=== PATIENT | female | born 1950 | race Two or more races ===

== ENCOUNTER 2020-06-05 12:19 | Outpatient (REF) | payer MEDICARE, SELFPAY | END 2020-06-05 12:20 | disposition home or self-care (01) | LOC: HO.LAB 12:19 | PROVIDERS: PCP Nurse Practitioner Family; Visit Provider Internal Medicine | DX: Z20.828 Contact with and (suspected) exposure to other viral communicable diseases (principal) | CPT/HCPCS: 87635 ==

== ENCOUNTER → 2020-07-23 12:50 | Outpatient (BNVA) | payer MEDICARE, SELFPAY | PROVIDERS: PCP Nurse Practitioner Family; Referring Provider Nurse Practitioner Family; Visit Provider Internal Medicine Endocrinology, Diabetes & Metabolism | DX: E11.65 Type 2 diabetes mellitus with hyperglycemia (principal); E11.21 Type 2 diabetes mellitus with diabetic nephropathy; E11.319 Type 2 diabetes mellitus with unspecified diabetic retinopathy without macular edema; E11.42 Type 2 diabetes mellitus with diabetic polyneuropathy; Z79.84 Long term (current) use of oral hypoglycemic drugs; I10 Essential (primary) hypertension; E66.01 Morbid (severe) obesity due to excess calories; Z98.84 Bariatric surgery status | CPT/HCPCS: Q3014 ==

== ENCOUNTER → 2020-10-10 08:26 | Outpatient (BNVA) | payer MEDICARE, SELFPAY | PROVIDERS: Visit Provider Physician Assistant | DX: E66.9 Obesity, unspecified (principal) | CPT/HCPCS: Q3014 ==

== ENCOUNTER 2020-10-13 08:47 | Outpatient (REF) | payer MEDICARE, SELFPAY ==
[2020-10-13 09:25] LABS: MANUAL DIFF FLAG NO
[2020-10-13 09:34] LABS: Basophils Percent Auto 0.2 % (0-2); Eosinophils Absolute Auto 0.1 X10*3/uL (0.0-0.4); Hematocrit 43.4 % (37-47); Hemoglobin 13.8 g/dl (12.0-16.0); Imm Gran Abs Auto 0.01 X10*3/uL (0.00-0.03); Imm Gran Pct Auto 0.2 % (0.0-0.4); Lymphocytes Absolute Auto 1.7 X10*3/uL (1.2-4.9); Lymphocytes Percent Auto 32.9 % (20-40); Mean Corpuscular HGB Conc 31.8 g/dl (31.0-35.0); Mean Corpuscular Hemoglobin 26.6 pg (27.0-33.0); Mean Corpuscular Volume 83.8 fL (80-98); Mean Platelet Volume 11.9 fL (9.4-12.3); Monocytes Absolute Auto 0.7 X10*3/uL (0.1-1.2); Monocytes Percent Auto 14.1 % (2-11); Neutrophils Absolute Auto 2.7 X10*3/uL (2.0-8.3); Neutrophils Percent Auto 51.6 % (45-73); Platelet Count 232 X10*3/uL (160-400); Red Blood Count 5.18 X10*6/uL (4.20-5.50); Red Cell Distribution Width 13.8 % (11.0-16.0); White Blood Count 5.2 X10*3/uL (4.8-10.8)
[2020-10-13 09:43] LABS: Estimated Average Glucose 177 mg/dL; Hemoglobin A1c % 7.8 %
[2020-10-13 10:01] LABS: Alanine Aminotransferase 26 U/L (0-31); Albumin Level 4.1 g/dL (3.5-5.0); Alkaline Phosphatase 81 U/L (39-117); Anion Gap 12 (12-20); Aspartate Amino Transferase 23 U/L (5-31); Bilirubin Total 0.6 mg/dL (0.0-1.0); Blood Urea Nitrogen 14 mg/dL (9-16); C Reactive Protein 0.93 mg/dL (< or = 0.50); Calcium 9.6 mg/dL (8.4-10.2); Carbon Dioxide 30 mmol/L (22-29); Chloride 102 mmol/L (96-108); Cholesterol 247 mg/dL; Estimated Glomerular Filt Rate > 60; Glucose Random 156 mg/dL (60-115); HDL Cholesterol 49 mg/dL; LDL Cholesterol Calculated 148 mg/dl; Potassium 4.7 mmol/L (3.3-5.1); Sodium 139 mmol/L (135-145); Total Protein 7.4 g/dL (6.5-8.0); Triglycerides 251 mg/dL
[2020-10-13 10:22] LABS: Ferritin 6 ng/mL (10-250); TSH reflex Free T4 2.63 uIU/mL (0.32-4.0); Vitamin D 25-OH Total 20.4 ng/mL (>30)
[2020-10-15 08:32] LABS: Folate 11.6 ng/mL (> or = 4.0); Vitamin B12 487 pg/mL (200-900)
[2020-10-15 11:36] LABS: Insulin Level Total 12.8 uIU/mL
[2020-10-15 22:17] LABS: Calcium (PTHI) 9.8 mg/dL (8.6-10.4); PTHI 54 pg/mL (14-64)
[2020-10-16 12:46] LABS: Zinc 72 mcg/dL (60-130)
[2020-10-18 22:47] LABS: Vitamin A 30 mcg/dL (38-98)
== END 2020-10-13 08:48 | disposition home or self-care (01) ==
LOC: HO.LAB 08:47
PROVIDERS: Absent Provider Physician Assistant; PCP Nurse Practitioner Family; Visit Provider Internal Medicine Endocrinology, Diabetes & Metabolism
DX: E66.9 Obesity, unspecified (principal); Z90.3 Acquired absence of stomach [part of]
CPT/HCPCS: 36415; 80053; 80061; 82306; 82607; 82728; 82746; 83036; 83525; 83970; 84425; 84443; 84590; 84630; 85025; 86140

== ENCOUNTER 2020-10-16 14:08 | Outpatient (REF) | payer MEDICARE, SELFPAY ==
--- NOTE | ~2020-10-16 | XR_ITS ---
EXAMINATION: XR FOOT, LEFT CLINICAL INFORMATION: Hypertrophic osteoarthropathy, multiple sites COMPARISON: 02/14/2017 TECHNIQUE: AP, lateral, and oblique views of the left foot. FINDINGS: No fracture. No dislocation. There is enthesopathy of the distal Achilles tendon attachment. Small plantar calcaneal osteophyte is present. There is irregularity and osteophytosis of the tibiotalar joint. There is anterior and posterior talar spurring. Mild degenerative arthrosis of the first metatarsophalangeal joint. No acute or suspicious osseous abnormality. XR/XR foot LT 2V IMPRESSION: Degenerative changes as described above. No acute osseous abnormality.
--- NOTE | ~2020-10-16 | XR_ITS ---
EXAMINATION: XR FOOT, RIGHT CLINICAL INFORMATION: Hypertrophic osteoarthropathy, multiple sites COMPARISON: Ankle x-rays 05/24/2020 TECHNIQUE: AP, lateral, and oblique views of the right foot. FINDINGS: There is enthesopathy of the distal Achilles tendon attachment and a large plantar calcaneal osteophyte. No fracture or dislocation seen. Normal mineralization and alignment. XR/XR foot RT 2V IMPRESSION: Degenerative changes. No acute osseous abnormality.
== END 2020-10-16 14:09 | disposition home or self-care (01) ==
LOC: HO.XRAY 14:08
PROVIDERS: PCP Nurse Practitioner; Visit Provider Student in an Organized Health Care Education/Training Program
DX: M89.49 Other hypertrophic osteoarthropathy, multiple sites (principal)
CPT/HCPCS: 73620; 99212

== ENCOUNTER 2020-10-22 09:39 | Outpatient (REF) | payer MEDICARE, SELFPAY ==
[2020-10-22 10:24] LABS: Hematocrit 39.3 % (37-47); Hemoglobin 12.7 g/dl (12.0-16.0); Mean Corpuscular HGB Conc 32.3 g/dl (31.0-35.0); Mean Corpuscular Hemoglobin 27.1 pg (27.0-33.0); Mean Platelet Volume 11.4 fL (9.4-12.3); Platelet Count 227 X10*3/uL (160-400); Red Blood Count 4.68 X10*6/uL (4.20-5.50); White Blood Count 6.4 X10*3/uL (4.8-10.8)
[2020-10-22 10:32] LABS: Estimated Average Glucose 177 mg/dL; Hemoglobin A1c % 7.8 %
[2020-10-22 10:45] LABS: Alanine Aminotransferase 18 U/L (0-31); Alkaline Phosphatase 72 U/L (39-117); Anion Gap 12 (12-20); Aspartate Amino Transferase 16 U/L (5-31); Bilirubin Total 0.5 mg/dL (0.0-1.0); Blood Urea Nitrogen 20 mg/dL (9-16); Calcium 9.3 mg/dL (8.4-10.2); Carbon Dioxide 28 mmol/L (22-29); Chloride 106 mmol/L (96-108); Cholesterol 236 mg/dL; Estimated Glomerular Filt Rate > 60; Glucose Fasting 117 mg/dL (60-99); HDL Cholesterol 44 mg/dL; LDL Cholesterol Calculated 143 mg/dl; Potassium 4.7 mmol/L (3.3-5.1); Sodium 141 mmol/L (135-145); Total Protein 7.1 g/dL (6.5-8.0); Triglycerides 249 mg/dL
[2020-10-22 11:38] LABS: Creatinine Urine 271.16 mg/dL; Microalbum/Creatinine Ratio Ur 18.8 ug/mg cr
[2020-10-25 15:48] LABS: Vitamin B12 513 pg/mL (200-900)
== END 2020-10-22 09:40 | disposition home or self-care (01) ==
LOC: HO.LAB 09:39
PROVIDERS: Internal Medicine Endocrinology, Diabetes & Metabolism; PCP Nurse Practitioner Family; Visit Provider Physician Assistant
DX: E11.65 Type 2 diabetes mellitus with hyperglycemia (principal); E11.42 Type 2 diabetes mellitus with diabetic polyneuropathy; E78.5 Hyperlipidemia, unspecified; I10 Essential (primary) hypertension; E66.9 Obesity, unspecified; Z87.891 Personal history of nicotine dependence; Z79.84 Long term (current) use of oral hypoglycemic drugs; Z79.899 Other long term (current) drug therapy
CPT/HCPCS: 36415; 80053; 80061; 82043; 82306; 82607; 82947; 83036; 85027; 99212

== ENCOUNTER → 2020-10-31 12:35 | Outpatient (BNVA) | payer MEDICARE, SELFPAY | PROVIDERS: PCP Nurse Practitioner Family; Visit Provider Orthopaedic Surgery | DX: M65.331 Trigger finger, right middle finger (principal); R20.0 Anesthesia of skin; R20.2 Paresthesia of skin | CPT/HCPCS: 99202 ==

== ENCOUNTER → 2020-11-01 08:09 | Outpatient (BNVA) | payer MEDICARE, SELFPAY | PROVIDERS: PCP Nurse Practitioner Family; Visit Provider Dietitian, Registered ==

== ENCOUNTER → 2020-11-06 09:21 | Outpatient (BNVA) | payer MEDICARE, SELFPAY | PROVIDERS: PCP Nurse Practitioner Family; Visit Provider Nurse Practitioner | DX: Z13.89 Encounter for screening for other disorder (principal) | CPT/HCPCS: Q3014 ==

== ENCOUNTER 2020-11-12 14:00 | Outpatient (RCR) | payer MEDICARE, SELFPAY ==
--- NOTE | 2020-10-25 15:30 | MHC.PT.EP ---
[facility] [place] [facility] [place] [facility] [place] [facility] [address] Rip Winkler [address] [phone] F: [phone] F: [phone] F: [phone] F: [phone] Physical Therapy Plan of Care Date of Evaluation: 10/25/20 Date of Surgery: NA Diagnosis: Other hypertrophic osteoarthropathy, multiple sites. Bilateral shoulder pain. Assessment: Halley is a 70-year-old female presenting to physical therapy with a diagnosis of bilateral shoulder pain.She presents with deficits in R shoulder ROM, TTP over middle deltoid, B shoulder strength, and impaired posture. These impairments limit her tolerance to reaching and lifting items overhead, washing her back, and sleeping through the night. She lives with her who occasionally helps her with ADLS. Halley would benefit from skilled therapy to address the aforementioned impairments to improve her quality of life and return to her PLOF. Frequency and Duration: The patient will be seen 2 visits per week for 5 weeks Short Term Goals: 1.) Pt will report <2/10 pain at rest to allow her to sit and watch television within 3 weeks. 2.) Pt will be able to sleep for 8 hours each night without waking up due to pain within 3 weeks. 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 2.) Pt will be independent with [facility] for symptom management and maintenance following discharge within 5 weeks. Treatment Plan: Modalities to reduce pain, spasms and effusion. Manual therapy to restore motion and function. Therapeutic exercise to improve strength and flexibility. Neuromuscular re-education for posture and balance. Therapeutic activities to return to functional activities of daily living. Electronically signed by: Amy Romero, PT, DPT Please sign and return to therapist. Thank you for your referral.
--- NOTE | 2020-11-26 15:24 | MHC.PT.DC ---
[facility] [place] Office [place] Office [place] Office [address] Rip Winkler [address] [phone] F: [phone] F: [phone] F: [phone] F: [phone] Physical Therapy Discharge Report Diagnosis: Other hypertrophic osteoarthropathy, multiple sites. Bilateral shoulder pain. Date of Surgery: NA Date of Evaluation: 10/25/20 Date of Discharge: 11/26/20 Treatments to Date: 4 Cancellations to Date: 1 No Shows to Date: 6 Discharge Status: Visit Non-compliance Discharge Summary: Pt has had 6 no shows and 1 cancel. She was discharged from therapy for non compliance. Electronically signed by: Amy Romero, PT, DPT Please sign and return to therapist. Thank you for your referral.
== END 2020-11-26 15:25 | disposition other institution (70) ==
LOC: HO.PT 14:00
PROVIDERS: PCP Internal Medicine; Visit Provider Student in an Organized Health Care Education/Training Program
DX: M89.49 Other hypertrophic osteoarthropathy, multiple sites (principal)
CPT/HCPCS: 97110; 97112; 97161

== ENCOUNTER 2020-11-23 11:32 | Emergency (ER) | payer MEDICARE, SELFPAY ==
[2020-11-23 11:41] VITALS: BP 177/74; PULSE 66; RESP 16; TEMP 37.1; O2SAT 97; BMI 45.7
--- NOTE | 2020-11-23 12:49 | ED.GENADULT ---
HPI - General Adult General Chief complaint: Back Pain/Injury Stated complaint: low back pain Time Seen by Provider: 11/23/20 12:07 Source: patient Mode of arrival: ambulatory Limitations: language barrier (Patient speaks Azeri only, type photography supervisor was used to obtain information) History of Present Illness HPI narrative: 70-year-old female who presents emergency department for evaluation of left lower back pain x3 months. She states that the pain has been intermittent over the past 3 months and has been [id number] in intensity. She states that she woke up this morning and the pain was severe. The pain was constant, sharp, 8/10. The pain was worse with movement. The pain did not radiate down her left leg. She denied numbness or weakness of her lower extremities. She denied frequency, urgency or dysuria. She states that she was not ill in any other way, she denied fever, chills, cough, chest pain, abdominal pain, nausea, vomiting, diarrhea. The patient took ibuprofen 800 mg at home with no relief. She was having difficulty walking and moving, therefore she came to the emergency department for evaluation. Related Data Home Medications Medication Instructions Recorded Confirmed blood sugar diagnostic #10 ea 07/23/20 10/22/20 fluticasone propionate 220 2 puff INHALATION BID 07/23/20 10/22/20 mcg/actuation HFA aerosol inhaler ibuprofen 800 mg tablet 800 mg PO TID 07/23/20 10/22/20 lancets 33 gauge #100 ea 07/23/20 10/22/20 melatonin 5 mg tablet 500f10 mg PO BEDTIME 07/23/20 10/22/20 multivitamin 1 tab PO DAILY 07/23/20 10/22/20 venlafaxine 37.5 mg 37.5 mg PO BEDTIME 07/23/20 10/22/20 capsule,extended release 24 hr Previous Rx's Medication Instructions Recorded diclofenac sodium 1 % topical gel 2 g TOPICAL BID PRN #100 g 06/19/20 atorvastatin 40 mg tablet 40 mg PO BEDTIME 90 Days #90 tab 10/22/20 empagliflozin 25 mg-metformin ER 1 tab PO DAILY 90 Days #90 ea 10/22/20 1,000 mg tablet,extended release 24hr semaglutide 1 mg/dose (2 mg/1.5 1 mg SUBCUT QWEEK 90 Days #9 ml 10/22/20 mL) subcutaneous pen injector vitamin A 2,400 mcg capsule 16,000 unit PO DAILY #60 cap 10/23/20 cholecalciferol (vitamin D3) 50 50 mcg PO DAILY 30 Days #30 cap 10/25/20 mcg (2,000 unit) capsule docusate sodium 100 mg capsule 100 mg PO DAILY 30 Days #30 cap 11/06/20 pantoprazole 40 mg tablet,delayed 40 mg PO QAM 30 Days #30 tab 11/06/20 release simethicone 180 mg capsule 180 mg PO QID PRN 30 Days #90 cap 11/06/20 methocarbamol 1,000 mg PO .q12 PRN 5 Days #20 tab 11/23/20 morphine 15 mg PO Q4-6H PRN #10 tab 11/23/20 Allergies Allergy/AdvReac Type Severity Reaction Status Date / Time No Known Allergies Allergy Verified 11/06/20 09:21 Review of Systems Review of Systems: Yes all other systems are reviewed and are negative PMF Past Medical History [facility] Narrative: She denies tobacco, alcohol or drug use. Medical History Diabetes type 2, uncontrolled Diabetic polyneuropathy associated with type 2 diabetes mellitus Dyslipidemia Hypertension Obesity Vitamin D deficiency Surgical History History of esophagogastroduodenoscopy (EGD) History of eyelid surgery History of sleeve gastrectomy Hx of colonoscopy Hx of tubal ligation Family History Family History Father Type II diabetes mellitus Obesity Mother HTN (hypertension) Brother Cancer Social History Social History Alcohol intake: never Smoking Status: Former smoker Advance Directives: No Advance Directives Information Provided: No Physical Exam Vital Signs: Vital Signs: Last Vital Signs Temp 98.7 F 11/23/20 11:41 Pulse 66 11/23/20 11:41 Resp 16 11/23/20 11:41 BP 177/74 H 11/23/20 11:41 Pulse Ox 97 11/23/20 11:41 Body Mass Index 45.7 Const: General: cooperative Nutritional Appearance: obese Orientation/consciousness: oriented to person and oriented to place Limitations: no limitations HENMT: Head: Yes normal to inspection, Yes normocephalic and Yes atraumatic Ears: external ears normal General nose exam: Normal external nose present Face and sinus: Yes normal facial exam Mouth: Normal oral and palatal mucosa present Throat: Yes posterior oropharynx normal Eyes: Periorbital: periorbital findings normal Eyelids: Yes eyelids normal Conjunctivae: conjunctivae normal Sclerae: sclerae normal Corneas: corneas normal Pupils: Equal, round and reactive pupils present Direct Ophthalmoscopy: normal light reflex Neck: Neck: Yes full ROM, Yes no lymphadenopathy, Yes no meningeal signs, Yes trachea midline and Yes supple Chest: Chest palpation & inspection: normal inspection of the chest and normal palpation of entire chest wall Resp: Effort & Inspection: normal respiratory effort and able to speak in complete sentences Auscultation: clear to auscultation bilaterally Cardio: Rate: regular rate Rhythm: regular rhythm Heart sounds: S1 normal heart sound present, S2 normal heart sound present and no murmurs GI: Inspection: Yes normal to inspection Palpation (GI): Soft to palpation, nontender, no guarding, not rigid and No hepatosplenomegaly present : General: Yes no CVA tenderness Back/Spine/Pelvis: Other: The patient has tenderness with palpation of her left paraspinal muscles in the lumbar sacral area, there is spasm of these muscles. The patient has no rashes or lesions noted over the area of tenderness. She has no spinal tenderness. She has negative straight leg raises bilaterally. Back: no CVA tenderness Cervical Spine: normal cervical lordosis Skin: Lesions: no lesions Rashes: no rashes Wounds: no wounds Neuro: General: oriented to person, oriented to place and no meningeal signs Cranial nerves: Yes CN's II-XII intact bilaterally and Yes Equal, round and reactive pupils present Cognition (Neuro): normal cognition Motor exam (neuro): 5/5 motor strength present throughout Extrem: General: Yes normal to inspection and Yes full ROM Psych: Appearance: well kempt Mental Status: mental status grossly normal Speech and movement: Normal speech and movement present Affect: normal affect Attitude: cooperative Thought process: Normal thought process present Thought content: Normal thought content present Course Course Course Narrative: 70-year-old female with a history of intermittent, left lower back pain x3 months with pain which was worse this morning when she woke up. The pain was 8/10 and was worse with movement. On physical examination the patient was afebrile, she was hypertensive with a blood pressure of 177/74, she did have lumbar sacral paraspinal muscle tenderness and spasm with no vertebral tenderness. She had negative straight leg raise is in her neurologic exam was nonfocal. Her presentation is consistent with lumbar muscle strain. The patient was advised to continue taking her ibuprofen 800 mg 3 times a day and Tylenol 1000 mg 3 times a day. She was given a prescription for morphine 15 mg every 4-6 hours as needed for pain not relieved by ibuprofen and Tylenol. She was also given a prescription for Robaxin 1000 mg twice a day for pain and spasm. She was given printed and verbal instructions and discharged home. Discharge Plan Discharge Clinical Impression: Acute lumbar myofascial strain Qualifiers: Encounter type: initial encounter Qualified Code(s): S39.012A - Strain of muscle, fascia and tendon of lower back, initial encounter Patient Disposition: Home, Self-Care Instructions: Low Back Strain (ED) Additional Instructions: Back Pain Discharge Instructions: Take Motri(ibuprofen) 800 mg pills, 1 pills every 6 hours as needed for pain. Take Tyleno(acetaminophen) 500 mg pills, 2 pills every 6 hours as needed for pain. Take Robaxin 1000 mg every 12 hours as needed for pain or muscle spasm. This is a prescription medication. This medication will make you sleepy, therefore do not drive or work while taking this medication. Apply ice for 15 minutes to the area that hurts on your back, then apply a heating a pad on low for 15 minutes. Do this 4-6 times a day to help reduce the pain in your back. Continue with normal activities as tolerated since staying in bed and not moving around will make your pain worse. You can also try over the counter lidocaine patches as directed on the box to help with the pain. Please return to the Emergency Department or see your doctor immediately if your symptoms get worse or if you develop any new symptoms that are concerning you. Follow up with your doctor in 2 day. Please read the other printed discharge instructions on back pain. Prescriptions: New morphine 15 mg tablet 15 mg PO Q4-6H PRN (Reason: pain) Qty: 10 RF: 0 methocarbamol 500 mg tablet 1,000 mg PO .q12 PRN (Reason: Pain or spasm) 5 Days Qty: 20 RF: 0 No Action diclofenac sodium 1 % gel 2 g topical BID PRN (Reason: pain) Qty: 100 RF: 2 vitamin A 8,000 unit capsule 16,000 unit PO DAILY Qty: 60 RF: 2 cholecalciferol (vitamin D3) 50 mcg (2,000 unit) capsule 50 mcg PO DAILY 30 Days Qty: 30 RF: 6 Flovent HFA 220 mcg/actuation HFA aerosol inhaler 2 puff inhalation BID RF: 0 (DME) lancets 33 gauge misc See Rx Instructions ea Not Applicable BID Qty: 100 RF: 0 melatonin 5 mg tablet 500f10 mg PO BEDTIME RF: 0 (DME) OneTouch Ultra Blue Test Strip Strip See Rx Instructions ea Not Applicable BID Qty: 10 RF: 0 ibuprofen 800 mg tablet 800 mg PO TID RF: 0 venlafaxine 37.5 mg capsule,extended release 24hr 37.5 mg PO BEDTIME RF: 0 multivitamin Tablet 1 tab PO DAILY RF: 0 pantoprazole 40 mg tablet,delayed release (DR/EC) 40 mg PO QAM 30 Days Qty: 30 RF: 6 docusate sodium 100 mg capsule 100 mg PO DAILY 30 Days Qty: 30 RF: 6 simethicone 180 mg capsule 180 mg PO QID PRN (Reason: abdominal distention) 30 Days Qty: 90 RF: 6 Ozempic 1 mg/dose (2 mg/1.5 mL) pen injector 1 mg subcut QWEEK 90 Days Qty: 9 RF: 1 Synjardy XR 25-1,000 mg tablet, IR - ER, biphasic 24hr 1 tab PO DAILY 90 Days Qty: 90 RF: 3 atorvastatin 40 mg tablet 40 mg PO BEDTIME 90 Days Qty: 90 RF: 2 Interventions: ED Discharge Assessment Last Done: 11/23/20 13:45 Discharge Date/Time: 11/23/20 13:49
== END 2020-11-23 13:49 | disposition home or self-care (01) ==
PROVIDERS: Emergency Provider Emergency Medicine Emergency Medical Services; PCP Nurse Practitioner Family
DX: S39.012A Strain of muscle, fascia and tendon of lower back, initial encounter (principal); X58.XXXA Exposure to other specified factors, initial encounter; E11.9 Type 2 diabetes mellitus without complications; I10 Essential (primary) hypertension; E78.5 Hyperlipidemia, unspecified; Y93.84 Activity, sleeping; Y92.013 Bedroom of single-family (private) house as the place of occurrence of the external cause; Y99.9 Unspecified external cause status
CPT/HCPCS: 99283

== ENCOUNTER 2020-11-24 04:41 | Emergency (ER) | payer MEDICARE, SELFPAY ==
[2020-11-24 04:50] VITALS: BP 126/71; BP 154/69; PULSE 82; RESP 16; TEMP 37.2; O2SAT 96; O2SAT 98; BMI 39.3
[2020-11-24] MEDS: ondansetron HCL 4 MG/2 ML VIAL IVPUSH (05:07)
--- NOTE | 2020-11-24 05:10 | PC.NURSE ---
Pt found sitting upright in bed, Citizen [place] speaking only with at bedside. Per pt, she was prescribed Robaxin and Morphine yesterday for pain to her left side. Pt took the Robaxin and Morphine @ 1900 and has been vomiting several times since, pt reports at least 10x. Pt also reports feeling very itchy. Pt denies having any prescriptions for anti nausea medication. IV established, labs obtained, pt medicated with Zofran per OCT. POC 155 mg/dl. VSS at this time. MD at bedside for primary eval.
[2020-11-24 05:11] LABS: MANUAL DIFF FLAG NO
[2020-11-24 05:11] LABS: Glucose, Whole Blood 155 mg/dL (60-115)
[2020-11-24 05:12] LABS: Basophils Percent Auto 0.3 % (0-2); Eosinophils Absolute Auto 0.1 X10*3/uL (0.0-0.4); Eosinophils Percent Auto 0.5 % (0-4); Hematocrit 40.2 % (37-47); Hemoglobin 12.8 g/dl (12.0-16.0); Imm Gran Abs Auto 0.04 X10*3/uL (0.00-0.03); Imm Gran Pct Auto 0.4 % (0.0-0.4); Lymphocytes Absolute Auto 1.9 X10*3/uL (1.2-4.9); Lymphocytes Percent Auto 17.1 % (20-40); Mean Corpuscular HGB Conc 31.8 g/dl (31.0-35.0); Mean Corpuscular Hemoglobin 26.9 pg (27.0-33.0); Mean Corpuscular Volume 84.6 fL (80-98); Mean Platelet Volume 11.5 fL (9.4-12.3); Monocytes Absolute Auto 0.4 X10*3/uL (0.1-1.2); Monocytes Percent Auto 3.6 % (2-11); Neutrophils Absolute Auto 8.7 X10*3/uL (2.0-8.3); Neutrophils Percent Auto 78.1 % (45-73); Platelet Count 242 X10*3/uL (160-400); Red Blood Count 4.75 X10*6/uL (4.20-5.50); Red Cell Distribution Width 13.3 % (11.0-16.0); White Blood Count 11.1 X10*3/uL (4.8-10.8)
--- NOTE | 2020-11-24 05:26 | PC.NURSE ---
Pt ambulating to the bathroom, UA obtained and sent.
--- NOTE | 2020-11-24 05:27 | ED_ITS ---
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 Patient states that she took both the muscle relaxant and morphine this evening at approximately 7:00 p.m. with good resolution of her pain symptoms but then woke up with nausea and vomiting which prompted her to return to the emergency room. She denies any fevers, chills, abdominal pain/diarrhea, urinary pain/burning/frequency. And states her sugars have been well controlled. Related Data Home Medications Medication Instructions Recorded Confirmed blood sugar diagnostic #10 ea 07/23/20 10/22/20 fluticasone propionate 220 2 puff INHALATION BID 07/23/20 10/22/20 mcg/actuation HFA aerosol inhaler ibuprofen 800 mg tablet 800 mg PO TID 07/23/20 10/22/20 lancets 33 gauge #100 ea 07/23/20 10/22/20 melatonin 5 mg tablet 500f10 mg PO BEDTIME 07/23/20 10/22/20 multivitamin 1 tab PO DAILY 07/23/20 10/22/20 venlafaxine 37.5 mg 37.5 mg PO BEDTIME 07/23/20 10/22/20 capsule,extended release 24 hr Previous Rx's Medication Instructions Recorded diclofenac sodium 1 % topical gel 2 g TOPICAL BID PRN #100 g 06/19/20 atorvastatin 40 mg tablet 40 mg PO BEDTIME 90 Days #90 tab 10/22/20 empagliflozin 25 mg-metformin ER 1 tab PO DAILY 90 Days #90 ea 10/22/20 1,000 mg tablet,extended release 24hr semaglutide 1 mg/dose (2 mg/1.5 1 mg SUBCUT QWEEK 90 Days #9 ml 10/22/20 mL) subcutaneous pen injector vitamin A 2,400 mcg capsule 16,000 unit PO DAILY #60 cap 10/23/20 cholecalciferol (vitamin D3) 50 50 mcg PO DAILY 30 Days #30 cap 10/25/20 mcg (2,000 unit) capsule docusate sodium 100 mg capsule 100 mg PO DAILY 30 Days #30 cap 11/06/20 pantoprazole 40 mg tablet,delayed 40 mg PO QAM 30 Days #30 tab 11/06/20 release simethicone 180 mg capsule 180 mg PO QID PRN 30 Days #90 cap 11/06/20 methocarbamol 1,000 mg PO .q12 PRN 5 Days #20 tab 11/23/20 morphine 15 mg PO Q4-6H PRN #10 tab 11/23/20 Allergies Allergy/AdvReac Type Severity Reaction Status Date / Time No Known Allergies Allergy Verified 11/06/20 09:21 Review of Systems Review of Systems: Pertinent positives and negatives as stated in HPI 10 point review of systems is otherwise negative. [facility] Past Medical History Source: nursing notes reviewed Medical History Diabetes type 2, uncontrolled Diabetic polyneuropathy associated with type 2 diabetes mellitus Dyslipidemia Hypertension Obesity Vitamin D deficiency Surgical History History of esophagogastroduodenoscopy (EGD) History of eyelid surgery History of sleeve gastrectomy Hx of colonoscopy Hx of tubal ligation Family History Family History Father Type II diabetes mellitus Obesity Mother HTN (hypertension) Brother Cancer Social History Social History Alcohol intake: never Smoking Status: Former smoker Advance Directives: No Advance Directives Information Provided: No Physical Exam Vital Signs: Vital Signs: Last Vital Signs Temp 98.9 F 11/24/20 04:50 Pulse 82 11/24/20 04:50 Resp 16 11/24/20 04:50 BP 154/69 H 11/24/20 04:50 Pulse Ox 96 11/24/20 04:50 Body Mass Index 39.3 VITAL SIGNS: Reviewed. GENERAL: Well developed, well nourished, in no acute distress. HEAD: Normocephalic/atraumatic NOSE: Nares patent bilateral OROPHARYNX: no oral lesions noted, posterior pharynx clear NECK: Supple, no adenopathy LUNGS: Normal breath sounds. No adventitious sounds or accessory muscle use. SpO2<96> CARDIOVASCULAR: Regular rate and rhythm without noted murmurs ABDOMEN: Obesity, Soft, non-tender, non-distended with bowel sounds. NEUROLOGIC: Alert and oriented x 4. Course Course Course Narrative: This is a 70-year-old female with history and clinical presentation consistent with medication side effect, however will do basic labs and urinalysis and if no acute findings patient will be discharged with further instructions regarding medication associated nausea/vomiting. On review of all investigations there are no acute findings to suggest infection or electrolyte abnormalities as the cause of patient's acute onset of symptoms. This is most consistent with medication related nausea and vomiting. All results and findings were discussed with her at bedside via the master police detective. Patient is tolerating oral intake and will be discharged home in stable condition. MDM - Nausea/Vomiting/Diarrhea Lab Data Result diagrams: 11/24/20 04:56 11/24/20 04:56 Labs: Lab Results 11/24/20 11/24/20 11/24/20 Range/Units 04:56 04:56 05:06 WBC 11.1 H (4.8-10.8) X10*3/uL RBC 4.75 (4.20-5.50) X10*6/uL Hgb 12.8 (12.0-16.0) g/dl Hct 40.2 (37-47) % MCV 84.6 (80-98) fL MCH 26.9 L (27.0-33.0) pg MCHC 31.8 (31.0-35.0) g/dl RDW 13.3 (11.0-16.0) % Plt Count 242 (160-400) X10*3/uL MPV 11.5 (9.4-12.3) fL Immature Gran % (Auto) 0.4 (0.0-0.4) % Neut % (Auto) 78.1 H (45-73) % Lymph % (Auto) 17.1 L (20-40) % [place] % (Auto) 3.6 (2-11) % Eos % (Auto) 0.5 (0-4) % Baso % (Auto) 0.3 (0-2) % Lymph # (Auto) 1.9 (1.2-4.9) X10*3/uL [place] # (Auto) 0.4 (0.1-1.2) X10*3/uL Eos # (Auto) 0.1 (0.0-0.4) X10*3/uL Baso # (Auto) 0.0 (0.0-0.2) X10*3/uL Abs Immat Gran (auto) 0.04 H (0.00-0.03) X10*3/uL Absolute Neuts (auto) 8.7 H (2.0-8.3) X10*3/uL Absolute Nucleated RBC 0.000 (0.0-0.012) X10*3/uL Nucleated RBC % (auto) 0.0 (0.0-0.2) /100WBC Sodium 138 (135-145) mmol/L Potassium 4.4 (3.3-5.1) mmol/L Chloride 103 (96-108) mmol/L Carbon Dioxide 22 (22-29) mmol/L Anion Gap 17 (12-20) BUN 18 H (9-16) mg/dL Creatinine 0.68 (0.5-1.4) mg/dL Estim Creat Clear Calc 86.3 Estimated GFR > 60 POC Glucose 155 H (60-115) mg/dL Random Glucose 159 H (60-115) mg/dL Calcium 8.9 (8.4-10.2) mg/dL Total Bilirubin 0.6 (0.0-1.0) mg/dL AST 17 (5-31) U/L ALT 19 (0-31) U/L Alkaline Phosphatase 70 (39-117) U/L Total Protein 7.4 (6.5-8.0) g/dL Albumin 4.2 (3.5-5.0) g/dL Urine Color Urine Appearance Urine pH (5.0-8.0) Ur Specific [place] (1.005-1.025) Urine Protein (NEG-TRACE) MG/DL Urine Glucose (UA) (NEG) MG/DL Urine Ketones (NEG) MG/DL Urine Blood (NEG) Urine Nitrite (NEG) Ur Leukocyte Esterase (NEG) 11/24/20 Range/Units 05:22 WBC (4.8-10.8) X10*3/uL RBC (4.20-5.50) X10*6/uL Hgb (12.0-16.0) g/dl Hct (37-47) % MCV (80-98) fL MCH (27.0-33.0) pg MCHC (31.0-35.0) g/dl RDW (11.0-16.0) % Plt Count (160-400) X10*3/uL MPV (9.4-12.3) fL Immature Gran % (Auto) (0.0-0.4) % Neut % (Auto) (45-73) % Lymph % (Auto) (20-40) % [place] % (Auto) (2-11) % Eos % (Auto) (0-4) % Baso % (Auto) (0-2) % Lymph # (Auto) (1.2-4.9) X10*3/uL [place] # (Auto) (0.1-1.2) X10*3/uL Eos # (Auto) (0.0-0.4) X10*3/uL Baso # (Auto) (0.0-0.2) X10*3/uL Abs Immat Gran (auto) (0.00-0.03) X10*3/uL Absolute Neuts (auto) (2.0-8.3) X10*3/uL Absolute Nucleated RBC (0.0-0.012) X10*3/uL Nucleated RBC % (auto) (0.0-0.2) /100WBC Sodium (135-145) mmol/L Potassium (3.3-5.1) mmol/L Chloride (96-108) mmol/L Carbon Dioxide (22-29) mmol/L Anion Gap (12-20) BUN (9-16) mg/dL Creatinine (0.5-1.4) mg/dL Estim Creat Clear Calc Estimated GFR POC Glucose (60-115) mg/dL Random Glucose (60-115) mg/dL Calcium (8.4-10.2) mg/dL Total Bilirubin (0.0-1.0) mg/dL AST (5-31) U/L ALT (0-31) U/L Alkaline Phosphatase (39-117) U/L Total Protein (6.5-8.0) g/dL Albumin (3.5-5.0) g/dL Urine Color YELLOW Urine Appearance CLEAR Urine pH 5.0 (5.0-8.0) Ur Specific [place] 1.020 (1.005-1.025) Urine Protein NEG (NEG-TRACE) MG/DL Urine Glucose (UA) >=1000 H (NEG) MG/DL Urine Ketones 15 (NEG) MG/DL Urine Blood NEG (NEG) Urine Nitrite NEG (NEG) Ur Leukocyte Esterase NEG (NEG) Discharge Plan Discharge Clinical Impression: Medication side effect Nausea & vomiting Qualifiers: Vomiting type: unspecified Vomiting Intractability: non-intractable Qualified Code(s): R11.2 - Nausea with vomiting, unspecified Patient Disposition: Home, Self-Care Instructions: Acute Nausea and Vomiting (ED) Additional Instructions: 1. Reanude todos los medicamentos caseros seg?n lo recetado. 2. Recomiende el uso de metocarbamol para el malestar de la cadera y evite la morfina a menos que el metocarbamol no le ayude. 3. Se le proporciona marialuisa receta para medicamentos contra las n?useas en hilda de que necesite usar morfina. Shira medicamento debe tomarse antes de deysi morfina. 4. Santana un seguimiento con arce proveedor de atenci?n primaria para marialuisa reevaluaci?n. No dude en volver al servicio de urgencias si desarrolla un empeoramiento hung de fadumo s?ntomas. Prescriptions: No Action diclofenac sodium 1 % gel 2 g topical BID PRN (Reason: pain) Qty: 100 RF: 2 vitamin A 8,000 unit capsule 16,000 unit PO DAILY Qty: 60 RF: 2 cholecalciferol (vitamin D3) 50 mcg (2,000 unit) capsule 50 mcg PO DAILY 30 Days Qty: 30 RF: 6 morphine 15 mg tablet 15 mg PO Q4-6H PRN (Reason: pain) Qty: 10 RF: 0 methocarbamol 500 mg tablet 1,000 mg PO .q12 PRN (Reason: Pain or spasm) 5 Days Qty: 20 RF: 0 Flovent HFA 220 mcg/actuation HFA aerosol inhaler 2 puff inhalation BID RF: 0 (DME) lancets 33 gauge misc See Rx Instructions ea Not Applicable BID Qty: 100 RF: 0 melatonin 5 mg tablet 500f10 mg PO BEDTIME RF: 0 (DME) OneTouch Ultra Blue Test Strip Strip See Rx Instructions ea Not Applicable BID Qty: 10 RF: 0 ibuprofen 800 mg tablet 800 mg PO TID RF: 0 venlafaxine 37.5 mg capsule,extended release 24hr 37.5 mg PO BEDTIME RF: 0 multivitamin Tablet 1 tab PO DAILY RF: 0 pantoprazole 40 mg tablet,delayed release (DR/EC) 40 mg PO QAM 30 Days Qty: 30 RF: 6 docusate sodium 100 mg capsule 100 mg PO DAILY 30 Days Qty: 30 RF: 6 simethicone 180 mg capsule 180 mg PO QID PRN (Reason: abdominal distention) 30 Days Qty: 90 RF: 6 Ozempic 1 mg/dose (2 mg/1.5 mL) pen injector 1 mg subcut QWEEK 90 Days Qty: 9 RF: 1 Synjardy XR 25-1,000 mg tablet, IR - ER, biphasic 24hr 1 tab PO DAILY 90 Days Qty: 90 RF: 3 atorvastatin 40 mg tablet 40 mg PO BEDTIME 90 Days Qty: 90 RF: 2 Referrals: [facility] [Primary Care Provider] - 2 days Print Language: Burmese
[2020-11-24 05:29] LABS: Glucose Urine UA >=1000 MG/DL (NEG); Leukocyte Esterase Urine NEG (NEG); Nitrite Urine NEG (NEG); Urine Blood NEG (NEG); Urine Ketones 15 MG/DL (NEG); Urine Protein NEG (NEG-TRACE)
[2020-11-24 05:32] LABS: Alanine Aminotransferase 19 U/L (0-31); Albumin Level 4.2 g/dL (3.5-5.0); Alkaline Phosphatase 70 U/L (39-117); Anion Gap 17 (12-20); Aspartate Amino Transferase 17 U/L (5-31); Bilirubin Total 0.6 mg/dL (0.0-1.0); Blood Urea Nitrogen 18 mg/dL (9-16); Calcium 8.9 mg/dL (8.4-10.2); Carbon Dioxide 22 mmol/L (22-29); Chloride 103 mmol/L (96-108); Creatinine Clr Calc Pharmacy 86.3; Estimated Glomerular Filt Rate > 60; Glucose Random 159 mg/dL (60-115); Potassium 4.4 mmol/L (3.3-5.1); Sodium 138 mmol/L (135-145); Total Protein 7.4 g/dL (6.5-8.0)
[2020-11-24 05:38] LABS: Appearance Urine CLEAR; Color Urine YELLOW
[2020-11-24 06:06] VITALS: BP 107/50; PULSE 100; RESP 16; O2SAT 97
[2020-11-24 06:17] VITALS: BP 146/68; PULSE 76; RESP 20
[2020-11-24 06:25] LABS: RBC Urine 0 /HPF (0); Squamous Epithelial Cell Urine TRACE /LPF; WBC Urine 0 /HPF (0-4)
== END 2020-11-24 06:28 | disposition home or self-care (01) ==
PROVIDERS: Emergency Provider Student in an Organized Health Care Education/Training Program
DX: R11.2 Nausea with vomiting, unspecified (principal); M25.552 Pain in left hip; E11.9 Type 2 diabetes mellitus without complications; I10 Essential (primary) hypertension; Z87.891 Personal history of nicotine dependence; Z79.899 Other long term (current) drug therapy
CPT/HCPCS: 36415; 80053; 81001; 82947; 85025; 96374; 99284; J2405

== ENCOUNTER 2020-12-03 12:18 | Outpatient (REF) | payer MEDICARE, SELFPAY ==
--- NOTE | ~2020-12-03 | XR_ITS ---
EXAMINATION: XR HIP, LEFT CLINICAL INFORMATION: Pain in left hip COMPARISON: 06/25/2017 TECHNIQUE: Two views of the left hip. FINDINGS: No fracture or dislocation. The hip is well aligned. The joint space is maintained. Small osteophyte of the acetabulum, unchanged. The pubic symphysis is well aligned. The visualized bowel gas pattern is unremarkable. Enthesophyte formation at the iliac crest. XR/XR hip LT min 2V IMPRESSION: Mild degenerative change of the left hip.
== END 2020-12-03 12:19 | disposition home or self-care (01) ==
LOC: HO.XRAY 12:18
PROVIDERS: Absent Provider Internal Medicine; PCP Internal Medicine; Visit Provider Internal Medicine
DX: M25.552 Pain in left hip (principal)
CPT/HCPCS: 73502

== ENCOUNTER 2020-12-12 08:01 | Outpatient (REF) | payer MEDICARE, SELFPAY ==
--- NOTE | 2020-12-12 08:07 | EMG_ITS ---
This is a 70-year-old woman with several month history of pain and numbness in the right hand. She has no medications, had a cortisone injection recently. No diabetes. PHYSICAL EXAMINATION: On examination, she is alert and oriented with normal intellectual functions. Cranial nerves II through XII are normal. Muscle tone and strength are normal. No Tinel or Phalen sign. IMPRESSION: Rule out carpal tunnel syndrome. Nerve conduction EMG study: Mild carpal tunnel syndrome on the right. Normal EMG of the right C5-T1 innervated muscles. MD JAMES Randhawa/JON / [id number]
== END 2020-12-12 08:02 | disposition home or self-care (01) ==
LOC: HO.NEURO 08:01
PROVIDERS: Visit Provider Orthopaedic Surgery
DX: R20.0 Anesthesia of skin (principal); R20.2 Paresthesia of skin
CPT/HCPCS: 95886; 95910

== ENCOUNTER 2020-12-12 17:44 | Outpatient (REF) | payer MEDICARE, SELFPAY | END 2020-12-12 17:45 | disposition home or self-care (01) | LOC: HO.HOSX 17:44 | PROVIDERS: Visit Provider Physician Assistant | DX: Z13.89 Encounter for screening for other disorder (principal) ==

== ENCOUNTER → 2020-12-31 10:18 | Outpatient (BNVA) | payer MEDICARE, SELFPAY | PROVIDERS: PCP Internal Medicine; Visit Provider Physician Assistant | DX: M16.12 Unilateral primary osteoarthritis, left hip (principal) | CPT/HCPCS: 99202 ==

== ENCOUNTER → 2021-01-02 11:30 | Outpatient (BNVA) | payer MEDICARE, SELFPAY | PROVIDERS: PCP Internal Medicine; Visit Provider Orthopaedic Surgery | DX: G56.01 Carpal tunnel syndrome, right upper limb (principal); M65.331 Trigger finger, right middle finger | CPT/HCPCS: 99202 ==

== ENCOUNTER 2021-01-15 06:44 | Observation (INO) | payer MEDICARE, SELFPAY ==
[2021-01-15] VITALS (7 sets, daily range): BP systolic 118–155; BP diastolic 57–76; PULSE 66–78; RESP 18–22; TEMP 36.7–37.2; O2SAT 96–98; BMI 41.9
--- NOTE | 2021-01-15 07:10 | ED.ABDPAIN ---
HPI - Abdominal Pain General Chief Complaint: Abdominal Pain Stated Complaint: upper abd pain Time Seen by Provider: 01/15/21 07:10 Source: patient Mode of arrival: ambulatory Limitations: no limitations History of Present Illness HPI narrative: Patient with bariatric surgery at [place]. Rudolph sweeney last night MD elicited complaint: abdominal pain Pertinent past history: other (Bariatric surgery) Onset (ago): day(s) (3) Pain Consistency: intermittent Location: epigastric Severity: moderate Quality: cramping Radiation: other (neck and left shoulder) Exacerbating factors: nothing Related Data Home Medications Medication Instructions Recorded Confirmed blood sugar diagnostic #10 ea 07/23/20 10/22/20 fluticasone propionate 220 2 puff INHALATION BID 07/23/20 01/15/21 mcg/actuation HFA aerosol inhaler lancets 33 gauge #100 ea 07/23/20 10/22/20 melatonin 5 mg tablet 5 - 10 mg PO BEDTIME 07/23/20 01/15/21 multivitamin 1 tab PO DAILY 07/23/20 01/15/21 venlafaxine 37.5 mg 37.5 mg PO BEDTIME 07/23/20 01/15/21 capsule,extended release 24 hr pantoprazole 40 mg PO DAILY 01/15/21 01/15/21 semaglutide [Ozempic] 0.5 mg SUBCUT QWEEK 01/15/21 01/15/21 vitamin A 2 cap PO DAILY 01/15/21 01/15/21 Previous Rx's Medication Instructions Recorded atorvastatin 40 mg tablet 40 mg PO BEDTIME 90 Days #90 tab 10/22/20 empagliflozin 25 mg-metformin ER 1 tab PO DAILY 90 Days #90 ea 10/22/20 1,000 mg tablet,extended release 24hr cholecalciferol (vitamin D3) 50 50 mcg PO DAILY 30 Days #30 cap 10/25/20 mcg (2,000 unit) capsule flash glucose scanning reader #1 ea 12/28/20 flash glucose sensor #2 ea 12/28/20 meloxicam 15 mg tablet 15 mg PO DAILY 30 Days #30 tab 12/31/20 diclofenac sodium 1 % topical gel 2 g TOPICAL BID PRN #100 g 01/08/21 Allergies Allergy/AdvReac Type Severity Reaction Status Date / Time No Known Allergies Allergy Verified 12/31/20 11:18 Review of Systems Constitutional: Reports no additional constitutional complaints Eyes: Reports no additional eye complaints Denies dizziness Cardiovascular: Reports no additional cardiovascular complaints Respiratory: Reports as per HPI Gastrointestinal: Reports no additional gastrointestinal complaints Genitourinary: Reports no additional female genitourinary complaints Musculoskeletal: Reports no additional musculoskeletal complaints Skin/Breast: Denies rash Reports system reviewed and no additional complaints, except as documented, Denies dizziness and Denies Sensory deficit (Neuro) Psychiatric: Denies anxiety Physical Exam Vital Signs: Vital Signs: Last Vital Signs Temp 99.0 F 01/15/21 07:15 Pulse 75 01/15/21 08:13 Resp 18 01/15/21 07:15 BP 141/76 H 01/15/21 08:13 Pulse Ox 98 01/15/21 07:15 Body Mass Index 41.9 Const: General: healthy appearing Nutritional Appearance: obese Orientation/consciousness: oriented to person and patient oriented x3 Limitations: no limitations HENMT: Head: Yes normal to inspection Ears: external ears normal General nose exam: Normal external nose present Mouth: Normal oral and palatal mucosa present and oropharynx normal Throat: Yes posterior oropharynx normal Eyes: General: appearance normal, both eyes and all related structures Neck: Other: supple Neck: Yes normal visual inspection Chest: Chest palpation & inspection: normal inspection of the chest Resp: Auscultation: clear to auscultation bilaterally Cardio: Jugular venous distension: no JVD Rate: regular rate Rhythm: regular rhythm Heart sounds: S1 normal heart sound present and S2 normal heart sound present GI: Inspection: Yes normal to inspection Palpation (GI): Soft to palpation, nontender and No hepatosplenomegaly present Auscultation: normal bowel sounds : General: Yes no CVA tenderness Back/Spine/Pelvis: Back: no CVA tenderness Skin: General skin exam: no rashes or lesions noted Neuro: General: oriented to person and patient oriented x3 Cranial nerves: Yes CN's II-XII intact bilaterally Motor exam (neuro): 5/5 motor strength present throughout Sensory Exam: No Sensory deficit (Neuro) Extrem: General: Yes normal to inspection Psych: Appearance: grossly normal Course Course Course Narrative: epigastric pain radiating to left shoulder and neck, intermittent. With a benign physical exam, more concerned about cardiac ischemia will work her up for that, and check abdominal labs Reevaluation(s) Reevaluation #1: Patient with a HEART score of 4, will admit for cardiac work up Time: 09:38 Reevaluation #2: Discussed with Dr. Cee and Phillip. Wll admit Time: 12:24 MDM - Abdominal Pain Lab Data Result diagrams: 01/15/21 07:42 01/15/21 07:42 Labs: Lab Results 01/15/21 01/15/21 01/15/21 Range/Units 07:42 07:42 07:42 WBC 7.0 (4.8-10.8) X10*3/uL RBC 4.83 (4.20-5.50) X10*6/uL Hgb 12.8 (12.0-16.0) g/dl Hct 39.9 (37-47) % MCV 82.6 (80-98) fL MCH 26.5 L (27.0-33.0) pg MCHC 32.1 (31.0-35.0) g/dl RDW 13.8 (11.0-16.0) % Plt Count 233 (160-400) X10*3/uL MPV 11.6 (9.4-12.3) fL Immature Gran % (Auto) 0.1 (0.0-0.4) % Neut % (Auto) 65.1 (45-73) % Lymph % (Auto) 25.0 (20-40) % Lane % (Auto) 8.3 (2-11) % Eos % (Auto) 1.4 (0-4) % Baso % (Auto) 0.1 (0-2) % Lymph # (Auto) 1.8 (1.2-4.9) X10*3/uL Lane # (Auto) 0.6 (0.1-1.2) X10*3/uL Eos # (Auto) 0.1 (0.0-0.4) X10*3/uL Baso # (Auto) 0.0 (0.0-0.2) X10*3/uL Abs Immat Gran (auto) 0.01 (0.00-0.03) X10*3/uL Absolute Neuts (auto) 4.6 (2.0-8.3) X10*3/uL Absolute Nucleated RBC 0.000 (0.0-0.012) X10*3/uL Nucleated RBC % (auto) 0.0 (0.0-0.2) /100WBC Sodium 139 (135-145) mmol/L Potassium 4.3 (3.3-5.1) mmol/L Chloride 104 (96-108) mmol/L Carbon Dioxide 29 (22-29) mmol/L Anion Gap 10 L (12-20) BUN 17 H (9-16) mg/dL Creatinine 0.62 (0.5-1.4) mg/dL Estim Creat Clear Calc 94.5 Estimated GFR > 60 Random Glucose 116 H (60-115) mg/dL Calcium 9.4 (8.4-10.2) mg/dL Total Bilirubin 0.6 (0.0-1.0) mg/dL Direct Bilirubin 0.2 (0.0-0.5) mg/dL AST 14 (5-31) U/L ALT 17 (0-31) U/L Alkaline Phosphatase 78 (39-117) U/L Troponin I High Sens < 3.5 (<3.5-17.0) ng/L Total Protein 6.8 (6.5-8.0) g/dL Albumin 3.9 (3.5-5.0) g/dL Lipase 22 (8-78) U/L / Range/Units 09:36 WBC (4.8-10.8) X10*3/uL RBC (4.20-5.50) X10*6/uL Hgb (12.0-16.0) g/dl Hct (37-47) % MCV (80-98) fL MCH (27.0-33.0) pg MCHC (31.0-35.0) g/dl RDW (11.0-16.0) % Plt Count (160-400) X10*3/uL MPV (9.4-12.3) fL Immature Gran % (Auto) (0.0-0.4) % Neut % (Auto) (45-73) % Lymph % (Auto) (20-40) % Lane % (Auto) (2-11) % Eos % (Auto) (0-4) % Baso % (Auto) (0-2) % Lymph # (Auto) (1.2-4.9) X10*3/uL Lane # (Auto) (0.1-1.2) X10*3/uL Eos # (Auto) (0.0-0.4) X10*3/uL Baso # (Auto) (0.0-0.2) X10*3/uL Abs Immat Gran (auto) (0.00-0.03) X10*3/uL Absolute Neuts (auto) (2.0-8.3) X10*3/uL Absolute Nucleated RBC (0.0-0.012) X10*3/uL Nucleated RBC % (auto) (0.0-0.2) /100WBC Sodium (135-145) mmol/L Potassium (3.3-5.1) mmol/L Chloride (96-108) mmol/L Carbon Dioxide (22-29) mmol/L Anion Gap (12-20) BUN (9-16) mg/dL Creatinine (0.5-1.4) mg/dL Estim Creat Clear Calc Estimated GFR Random Glucose (60-115) mg/dL Calcium (8.4-10.2) mg/dL Total Bilirubin (0.0-1.0) mg/dL Direct Bilirubin (0.0-0.5) mg/dL AST (5-31) U/L ALT (0-31) U/L Alkaline Phosphatase (39-117) U/L Troponin I High Sens < 3.5 (<3.5-17.0) ng/L Total Protein (6.5-8.0) g/dL Albumin (3.5-5.0) g/dL Lipase (8-78) U/L ECG Data Attestation: I personally reviewed and interpreted this ECG as follows: Interpretation: sinus rate of 76, no st or twave changes Scores Heart Score History: -2- highly suspicious ECG: -0- normal Age: -2- > or = 65 Risk factory: -2- 3 or more risk factors or treated atherosclerosis Troponin: -0- < or = normal limit Score: 6 Risk: 16.6% Discharge Plan Discharge Clinical Impression: Chest pain Qualifiers: Chest pain type: precordial pain Qualified Code(s): R07.2 - Precordial pain Patient Disposition: Admitted As Inpatient FOR[facility]LY [facility] Past Medical History Medical History Diabetes type 2, uncontrolled Diabetic polyneuropathy associated with type 2 diabetes mellitus Dyslipidemia Hypertension Obesity Vitamin D deficiency Surgical History History of esophagogastroduodenoscopy (EGD) History of eyelid surgery History of sleeve gastrectomy Hx of colonoscopy Hx of tubal ligation Family History Family History Father Type II diabetes mellitus Obesity Mother HTN (hypertension) Brother Cancer Social History Social History Alcohol intake: former Smoking Status: Former smoker Use of substances other than those prescribed or required for medical reasons: No Advance Directives: No Advance Directives Information Provided: No
--- NOTE | 2021-01-15 07:30 | ECG_ITS ---
Test Reason : ABD PAIN Blood Pressure : / mmHG Vent. Rate : 076 BPM Atrial Rate : 076 BPM P-R Int : 162 ms QRS Dur : 070 ms QT Int : 378 ms P-R-T Axes : 053 006 025 degrees QTc Int : 425 ms Sinus rhythm with marked sinus arrhythmia Otherwise normal ECG When compared with ECG of 31-JAN-2019 12:54, No significant change was found Referred By: Patrice Patterson Electronically Signed By:RHONDA LEYVA MD
[2021-01-15] MEDS: Aspirin Enteric Coated 81 MG TABLET.DR 162 MG PO (07:46)
[2021-01-15 07:47] LABS: MANUAL DIFF FLAG NO
[2021-01-15 07:48] LABS: Basophils Percent Auto 0.1 % (0-2); Eosinophils Absolute Auto 0.1 X10*3/uL (0.0-0.4); Eosinophils Percent Auto 1.4 % (0-4); Hematocrit 39.9 % (37-47); Hemoglobin 12.8 g/dl (12.0-16.0); Imm Gran Abs Auto 0.01 X10*3/uL (0.00-0.03); Imm Gran Pct Auto 0.1 % (0.0-0.4); Lymphocytes Absolute Auto 1.8 X10*3/uL (1.2-4.9); Mean Corpuscular HGB Conc 32.1 g/dl (31.0-35.0); Mean Corpuscular Hemoglobin 26.5 pg (27.0-33.0); Mean Corpuscular Volume 82.6 fL (80-98); Mean Platelet Volume 11.6 fL (9.4-12.3); Monocytes Absolute Auto 0.6 X10*3/uL (0.1-1.2); Monocytes Percent Auto 8.3 % (2-11); Neutrophils Absolute Auto 4.6 X10*3/uL (2.0-8.3); Neutrophils Percent Auto 65.1 % (45-73); Platelet Count 233 X10*3/uL (160-400); Red Blood Count 4.83 X10*6/uL (4.20-5.50); Red Cell Distribution Width 13.8 % (11.0-16.0)
[2021-01-15] MEDS: Nitroglycerin 2 % Oint 1 GM Packet 1 INCH TRANSDERMA (07:49)
--- NOTE | 2021-01-15 07:50 | PC.NURSE ---
Pt medicated with aspiring and nitro paste. BP cuff in place for automatic reassessment in 15 minutes.
[2021-01-15 08:16] LABS: Alanine Aminotransferase 17 U/L (0-31); Albumin Level 3.9 g/dL (3.5-5.0); Alkaline Phosphatase 78 U/L (39-117); Anion Gap 10 (12-20); Aspartate Amino Transferase 14 U/L (5-31); Bilirubin Direct 0.2 mg/dL (0.0-0.5); Bilirubin Total 0.6 mg/dL (0.0-1.0); Blood Urea Nitrogen 17 mg/dL (9-16); Calcium 9.4 mg/dL (8.4-10.2); Carbon Dioxide 29 mmol/L (22-29); Chloride 104 mmol/L (96-108); Creatinine Clr Calc Pharmacy 94.5; Estimated Glomerular Filt Rate > 60; Glucose Random 116 mg/dL (60-115); Lipase 22 U/L (8-78); Potassium 4.3 mmol/L (3.3-5.1); Sodium 139 mmol/L (135-145); Total Protein 6.8 g/dL (6.5-8.0)
[2021-01-15 08:17] LABS: Troponin-I High Sensitivity < 3.5 ng/L (<3.5-17.0)
[2021-01-15 10:21] LABS: Troponin-I High Sensitivity < 3.5 ng/L (<3.5-17.0)
[2021-01-15 13:34] LABS: COVID-19 Test Negative (Negative)
--- NOTE | 2021-01-15 13:35 | P.HPHOSP_ITS ---
History of Present Illness Date of Service: 01/15/21 Chief Complaint: chest/abdominal pain This is a 70-year-old [place]bourgish-speaking female who presents to the hospital with complaints of chest/epigastric pain which has been ongoing for the last 2 days. Despite the use of a consumer insights specialist, the patient remains a poor historian and as such the history is obtained from the ED provider as well as the patient's was bedside. The patient reports that she has had vague chest/epigastric pain which has occurred multiple times throughout the day with no relationship to food intake which began about 3 days prior to arrival. She reports that the pain radiates to her left shoulder. Upon further questioning she also endorses that she has had chest pressure with exertion for many years and this pain does not necessarily feel the same. She reports that her current pain lasts for a few minutes and she thinks that maybe it does get worse with physical exertion and improved with rest. She does endorse abdominal symptoms of dyspepsia. Upon arrival to the emergency room her EKG showed no evidence of acute ischemia. To high sensitivity troponins were negative but due to her increased heart score admission was requested. Per discussion with the ED provider, he discussed the case with Cardiology who recommended admission. At the time of my interview, the patient reported her pain had subsided. Review of Systems Review of Systems: Constitutional - Awake and Alert, No apparent distress Eyes - PERRLA, EOMI Cardiovascular - chest pain Respiratory - Normal lung expansion, Normal respiratory effort, No respiratory distress, CTA bilaterally Gastrointestinal - NT / ND; +BS; No rebound or guarding - No CVA tenderness Extremities - no calf tenderness bilaterally, no swelling Musculoskeletal - Normal inspection, normal ROM Skin - Warm/Dry Neurological - Alert & oriented x3, No focal deficit Psychological - Appropriate affect [facility] Medical History Diabetes type 2, uncontrolled Diabetic polyneuropathy associated with type 2 diabetes mellitus Dyslipidemia Hypertension Obesity Vitamin D deficiency Family History Father Type II diabetes mellitus Obesity Mother HTN (hypertension) Brother Cancer Surgical History History of esophagogastroduodenoscopy (EGD) History of eyelid surgery History of sleeve gastrectomy Hx of colonoscopy Hx of tubal ligation Social History Alcohol intake: former Smoking Status: Former smoker Use of substances other than those prescribed or required for medical reasons: No Currently Displaying Signs/Symptoms of Drug Intoxication Withdrawal: No Advance Directives: No Advance Directives Information Provided: No Do you have thoughts of harming others: None Do you have a plan to hurt others: No Plan Meds Allergies Allergy/AdvReac Type Severity Reaction Status Date / Time No Known Allergies Allergy Verified 12/31/20 11:18 Active Medications: Current Medications Generic Name Dose Route Start Last Admin Trade Name Freq PRN Reason Stop Dose Admin Aspirin 162 mg 01/15/21 09:00 01/15/21 07:46 Aspirin Enteric Coated 81 Mg Tablet. PO 162 mg DAILY LAURA Administration Pharmacy Consult 1 each 01/15/21 10:59 Consult Rx Perform Med Rec MISCELLANE ONCE PRN Consult order Home Medications Medication Instructions Recorded Confirmed Last Taken Type blood sugar diagnostic #10 ea 07/23/20 10/22/20 Unknown History fluticasone propionate 220 2 puff INHALATION BID 07/23/20 01/15/21 Unknown History mcg/actuation HFA aerosol inhaler lancets 33 gauge #100 ea 07/23/20 10/22/20 Unknown History melatonin 5 mg tablet 5 - 10 mg PO BEDTIME 07/23/20 01/15/21 Unknown History multivitamin 1 tab PO DAILY 07/23/20 01/15/21 Unknown History venlafaxine 37.5 mg 37.5 mg PO BEDTIME 07/23/20 01/15/21 Unknown History capsule,extended release 24 hr pantoprazole 40 mg PO DAILY 01/15/21 01/15/21 Unknown History semaglutide [Ozempic] 0.5 mg SUBCUT QWEEK 01/15/21 01/15/21 Unknown History vitamin A 2 cap PO DAILY 01/15/21 01/15/21 Unknown History Physical Exam Vital Signs and Narrative: Vital Signs: Last Vital Signs Temp 99.0 F 01/15/21 07:15 Pulse 75 01/15/21 12:00 Resp 18 01/15/21 12:00 BP 119/58 L 01/15/21 12:00 Pulse Ox 97 01/15/21 12:00 Body Mass Index 41.9 Const: Other: Constitutional - Awake and Alert, No apparent distress Eyes - PERRLA, EOMI Cardiovascular - S1S2, RRR, No edema Respiratory - Normal lung expansion, Normal respiratory effort, No respiratory distress, CTA bilaterally Gastrointestinal - NT / ND; +BS; No rebound or guarding - No CVA tenderness Extremities - no calf tenderness bilaterally, no swelling Musculoskeletal - Normal inspection, normal ROM Skin - Warm/Dry Neurological - Alert & oriented x3, No focal deficit Psychological - Appropriate affect Results Labs CBC and Chem 7: 01/15/21 07:42 01/15/21 07:42 Labs: Laboratory Results - last 24 hr 01/15/21 01/15/21 01/15/21 07:42 07:42 07:42 MCV 82.6 MCH 26.5 L MCHC 32.1 RDW 13.8 Plt Count 233 MPV 11.6 Immature Gran % (Auto) 0.1 Neut % (Auto) 65.1 Lymph % (Auto) 25.0 [place] % (Auto) 8.3 Eos % (Auto) 1.4 Baso % (Auto) 0.1 Lymph # (Auto) 1.8 [place] # (Auto) 0.6 Eos # (Auto) 0.1 Baso # (Auto) 0.0 Abs Immat Gran (auto) 0.01 Absolute Neuts (auto) 4.6 Absolute Nucleated RBC 0.000 Nucleated RBC % (auto) 0.0 Anion Gap 10 L Estim Creat Clear Calc 94.5 Estimated GFR > 60 Random Glucose 116 H Calcium 9.4 Total Bilirubin 0.6 Direct Bilirubin 0.2 AST 14 ALT 17 Alkaline Phosphatase 78 Troponin I High Sens < 3.5 Total Protein 6.8 Albumin 3.9 Lipase 22 COVID-19 ([facility]) COVID-19 Clin Com 01/15/21 01/15/21 09:36 13:15 MCV MCH MCHC RDW Plt Count MPV Immature Gran % (Auto) Neut % (Auto) Lymph % (Auto) [place] % (Auto) Eos % (Auto) Baso % (Auto) Lymph # (Auto) [place] # (Auto) Eos # (Auto) Baso # (Auto) Abs Immat Gran (auto) Absolute Neuts (auto) Absolute Nucleated RBC Nucleated RBC % (auto) Anion Gap Estim Creat Clear Calc Estimated GFR Random Glucose Calcium Total Bilirubin Direct Bilirubin AST ALT Alkaline Phosphatase Troponin I High Sens < 3.5 Total Protein Albumin Lipase COVID-19 ([place]) Negative COVID-19 Clin Com See Note Assessment and Plan (1) Chest pain: Qualifiers: Chest pain type: precordial pain Qualified Code(s): R07.2 - Precordial pain Status: Acute This is a 70-year-old female with a past medical history of prior bariatric surgery, diabetes, hyperlipidemia presents to the hospital with complaints of chest/epigastric pain of 2-3 days duration. Due to her multiple risk factors for CAD and non-specific symptomology, she will be observed and evaluated by cardiology. 1. Chest pain question for unstable angina difficult to ascertain if her pain in primary cardiac in nature vs GI HS trop-I negative x 2, will check 3rd one this afternoon -- if rising will need to start anticoagulation Cardiology consult -- will need inpatient Nuc. Stress test - ordered 2. DM basal + bolus diabetic diet 3. HLD statin 4. Obesity - s/p LSG in January 2019 unclear how much weight she has lost or how compliant she is with her diet will need outpatient f/u with [facility] 5. GERD PPI Full Code DVT pptx, Lovenox
--- NOTE | 2021-01-15 13:45 | PC.NURSE ---
Pt tolerating a tuna sandwich without difficulty.
--- NOTE | 2021-01-15 14:27 | PC.NURSE ---
Pt stating that she is nauseous and is vomiting . No emesis visualized in the emesis bag. notified. [facility] [place] [facility] floor called in attempt to give report at this time. RN to call back.
[2021-01-15] MEDS: ondansetron HCL 4 MG/2 ML VIAL IVPUSH ×2 (14:38→18:23)
[2021-01-15] MEDS: Enoxaparin Sodium 40 MG/0.4 ML SYRINGE SUBCUT (15:05)
[2021-01-15] MEDS: 0.9 % Sodium Chloride Flush 3 ML SYRINGE IVFLUSH ×2 (15:06→23:31)
[2021-01-15 15:44] LABS: Glucose, Whole Blood 109 mg/dL (60-115)
[2021-01-15 18:01] LABS: Troponin-I High Sensitivity < 3.5 ng/L (<3.5-17.0)
[2021-01-15] MEDS: Fluticasone Propionate 250 MCG BLST.W.DEV 2 PUFF INHALE (18:59)
[2021-01-15 19:55] LABS: Glucose, Whole Blood 115 mg/dL (60-115)
[2021-01-15] MEDS: Atorvastatin Calcium 40 MG TABLET PO (20:47)
[2021-01-15] MEDS: Melatonin 3 MG TABLET 6 MG PO (21:01)
[2021-01-16 03:17] VITALS: BP 137/69; PULSE 72; RESP 18; TEMP 36.5; O2SAT 94
[2021-01-16 07:43] LABS: Glucose, Whole Blood 110 mg/dL (60-115)
[2021-01-16] MEDS: Fluticasone Propionate 250 MCG BLST.W.DEV 2 PUFF INHALE (07:50)
[2021-01-16 07:54] VITALS: PULSE 72; O2SAT 94
[2021-01-16 08:00] VITALS: BP 126/68; PULSE 74; RESP 20; TEMP 37.1; O2SAT 96
[2021-01-16] MEDS: 0.9 % Sodium Chloride Flush 3 ML SYRINGE IVFLUSH (09:33)
[2021-01-16] MEDS: Multivitamin TABLET 1 TAB PO (09:33)
[2021-01-16] MEDS: Aspirin 81 MG TAB.CHEW PO (09:34)
[2021-01-16] MEDS: Omeprazole 20 MG CAPSULE.DR PO (09:34)
[2021-01-16] MEDS: Cholecalciferol (Vitamin D3) 25 MCG TABLET 50 MCG PO (09:34)
--- NOTE | 2021-01-16 09:44 | PM.CNCAR ---
History of Present Illness History of Present Illness Date of Service: 01/16/21 Requesting physician: Patrick Fisher Consult reason: chest pain Chief complaint: Chest pain Narrative: We are asked to see Halley in cardiology consultation today for symptoms of epigastric discomfort radiating to the retrosternal area. She says this started on Thursday. Symptoms are present at rest, either she sitting up or lying down or can happen when she is walking. There is no clear association with exertion only. Symptoms associated with burping and she feels better. There is no association with food. She also has nausea and feels like she might throw up and has a sour taste in her mouth. She has had prior cardiac workup with echocardiogram in January 2019 which was within normal limits. She has multiple risk factors for cardiovascular disease an yesterday was felt that her symptoms were typical for myocardial ischemia however her cardiac markers are within normal limits including with chest discomfort and her EKG is nonischemic. Her symptoms to me appear to be clearly nonischemic in gastric in nature. She says she has to press on her belly to improve her symptoms. Have impressed the per she does have some tenderness in the area. She has not had any other symptoms. No hematemesis or melena. She has no lightheadedness, syncope, shortness of breath. Off note she had gastric bypass surgery done by Dr. Thomas, she says last year and had done well with weight loss but since then she has had increased oral intake and has gained some of the weight back Review of Systems Constitutional: Constitutional: Reports no additional constitutional complaints Cardiovascular: Cardiovascular: Denies chest pain with activity, Reports Epigastric Pain, Denies lightheadedness, Denies Loss of Consciousness, Denies palpitations and Denies dyspnea Respiratory: Respiratory: Reports no additional respiratory complaints and Denies dyspnea Gastrointestinal: Gastrointestinal: Reports belching, Reports dyspepsia and Reports nausea Genitourinary: Genitourinary: Reports no additional female genitourinary complaints Musculoskeletal: Musculoskeletal: Reports no additional musculoskeletal complaints Integumentary/Breasts: Skin/Breast: Reports system reviewed and no additional complaints, except as docu Neurologic: Reports system reviewed and no additional complaints, except as documented Psychiatric: Psychiatric: Reports no additional psychiatric complaints Endocrine: Endocrine: Reports no additional endocrine complaints and Denies palpitations Hematologic/Lymphatic: Hematologic/Lymphatic: Reports no additional hematologic/lymphatic complaints PMFSH Past Medical History Medical History Diabetes type 2, uncontrolled Diabetic polyneuropathy associated with type 2 diabetes mellitus Dyslipidemia Hypertension Obesity Vitamin D deficiency Family History Family History Father Type II diabetes mellitus Obesity Mother HTN (hypertension) Brother Cancer Surgical History Surgical History History of esophagogastroduodenoscopy (EGD) History of eyelid surgery History of sleeve gastrectomy Hx of colonoscopy Hx of tubal ligation Social History Social History Household Members: Spouse Alcohol intake: former Smoking Status: Former smoker Tobacco Type: Cigarette Smoking Quit Date: 1993 Use of substances other than those prescribed or required for medical reasons: No Currently Displaying Signs/Symptoms of Drug Intoxication Withdrawal: No Have you been hit, kicked, punched, or otherwise hurt by someone within the past year? If so, by whom?: No Do you feel safe in your current relationship?: Yes Is there a partner from a previous relationship who is making you feel unsafe now?: No Are you made to feel afraid or neglected: No Advance Directives: No Advance Directives Information Provided: No Do you have thoughts of harming others: None Do you have a plan to hurt others: No Plan Meds Allergies Allergy/AdvReac Type Severity Reaction Status Date / Time No Known Allergies Allergy Verified 12/31/20 11:18 Active Medications: Current Medications Generic Name Dose Route Start Last Admin Trade Name Freq PRN Reason Stop Dose Admin Acetaminophen 650 mg 01/15/21 14:25 Acetaminophen 325 Mg Tablet PO Q6H PRN Pain, Mild (Pain Scale 1-3) Aspirin 81 mg 01/16/21 09:00 Aspirin 81 Mg Tab.Chew PO DAILY [facility] Atorvastatin Calcium 40 mg 01/15/21 21:00 01/15/21 20:47 Atorvastatin Calcium 40 Mg Tablet PO 40 mg BEDTIME [facility] Administration Enoxaparin Sodium 40 mg 01/15/21 14:25 01/15/21 15:05 Enoxaparin Sodium 40 Mg/0.4 Ml Syringe SUBCUT 40 mg Q24H [facility] Administration Fluticasone Propionate 2 puff 01/15/21 20:00 01/16/21 07:50 Fluticasone Propionate 250 Mcg Blst.W.Dev INHALE 2 puff RBID [facility] Administration Insulin Human Lispro 0 unit 01/15/21 16:30 01/16/21 08:43 Insulin Lispro 100 Unit/Ml 3 Ml Vial SUBCUT Not Given QIDACHS [facility] Protocol Melatonin 6 mg 01/15/21 21:00 01/15/21 21:01 Melatonin 3 Mg Tablet PO 6 mg BEDTIME [facility] Administration Multivitamins/Vitamin C 1 tab 01/16/21 09:00 Multivitamin Tablet PO DAILY [facility] Omeprazole 20 mg 01/16/21 09:00 Omeprazole 20 Mg Capsule.Dr PO DAILY [facility] Ondansetron HCl 4 mg 01/15/21 14:25 01/15/21 14:38 Ondansetron Hcl 4 Mg/2 Ml Vial IVPUSH 4 mg Q8H PRN Administration Nausea and Vomiting Sodium Chloride 3 ml 01/15/21 16:00 01/15/21 23:31 0.9 % Sodium Chloride Flush 3 Ml Syringe IVFLUSH 3 ml QSHIFT [facility] Administration Venlafaxine HCl 37.5 mg 01/15/21 21:00 01/15/21 20:48 Venlafaxine Hcl Er 37.5 Mg Cap.Er.24h PO Not Given BEDTIME [facility] Vitamin D 50 mcg 01/16/21 09:00 Cholecalciferol (Vitamin D3) 25 Mcg Tablet PO DAILY [facility] Home Medications Medication Instructions Recorded Confirmed Last Taken Type blood sugar diagnostic #10 ea 07/23/20 10/22/20 Unknown History fluticasone propionate 220 2 puff INHALATION BID 07/23/20 01/15/21 Unknown History mcg/actuation HFA aerosol inhaler lancets 33 gauge #100 ea 07/23/20 10/22/20 Unknown History melatonin 5 mg tablet 5 - 10 mg PO BEDTIME 07/23/20 01/15/21 Unknown History multivitamin 1 tab PO DAILY 07/23/20 01/15/21 Unknown History venlafaxine 37.5 mg 37.5 mg PO BEDTIME 07/23/20 01/15/21 Unknown History capsule,extended release 24 hr pantoprazole 40 mg PO DAILY 01/15/21 01/15/21 Unknown History semaglutide [Ozempic] 0.5 mg SUBCUT QWEEK 01/15/21 01/15/21 Unknown History vitamin A 2 cap PO DAILY 01/15/21 01/15/21 Unknown History Physical Exam Vital Signs: Vital Signs: Last Vital Signs Temp 98.7 F 01/16/21 08:00 Pulse 74 01/16/21 08:00 Resp 20 01/16/21 08:00 BP 126/68 01/16/21 08:00 Pulse Ox 96 01/16/21 08:00 Body Mass Index 41.9 Const: General: cooperative, comfortable, no acute distress, alert and awake Nutritional Appearance: obese Orientation/consciousness: patient oriented x3 Limitations: no limitations HENMT: Head: Yes normocephalic and Yes atraumatic Neck: Neck: Yes trachea midline, Yes supple and Yes no JVD Resp: Effort & Inspection: normal respiratory effort Auscultation: clear to auscultation bilaterally Cardio: Jugular venous distension: no JVD Palpation: normal PMI Rate: regular rate Rhythm: regular rhythm Heart sounds: S1 normal heart sound present and S2 normal heart sound present Skin: General skin exam: no rashes or lesions noted Neuro: General: patient oriented x3 and no focal motor deficits Extrem: General: Yes no clubbing, cyanosis or edema Psych: Appearance: grossly normal Results Labs and Meds Result diagrams: 01/15/21 07:42 01/15/21 07:42 Lab results: Laboratory Results - last 24 hr 01/15/21 01/15/21 01/15/21 09:36 13:15 15:38 POC Glucose 109 Troponin I High Sens < 3.5 COVID-19 ([facility]) Negative COVID-19 Clin Com See Note 01/15/21 01/15/21 01/16/21 16:50 19:49 07:22 POC Glucose 115 110 Troponin I High Sens < 3.5 COVID-19 ([facility]) COVID-19 Clin Com Assessment and Plan (1) Chest pain: Qualifiers: Chest pain type: precordial pain Qualified Code(s): R07.2 - Precordial pain Status: Acute Elderly woman who presents with epigastric discomfort radiating to her retrosternal area with symptoms mostly appears to be gastric in nature associated with belching and nausea with prior gastric bypass surgery. Her pain is very atypical for myocardial ischemia. Her serial troponins are negative x3 along with nonischemic EKG. I think she requires further GI/bariatric evaluation with upper endoscopy to evaluate for her symptoms of gastric discomfort which could represent anastomotic ulcer. No further cardiac workup is indicated at this point in time. Continue her management of her hypertension and diabetes as per hospitalist team. Will sign of the case. Thank you for allowing us to partake in her care Procedures Date of Service Date of Service: 01/16/21
--- NOTE | 2021-01-16 10:08 | MHC.CM.PN ---
CM met with patient at the bedside with a spring coiler who states she amb with a cane, no svs in the home and lives with her . Patient does not have a HCP and declines filling one out today. Discussed discharge plan, home no services. will provide transportation. OBS notice addressed. CM will continue to follow patient for discharge needs.
[2021-01-16 11:19] VITALS: BP 124/56; PULSE 70; RESP 20; TEMP 36.6; O2SAT 96
[2021-01-16 11:20] LABS: Glucose, Whole Blood 110 mg/dL (60-115)
--- NOTE | 2021-01-16 13:10 | PM.CNGS ---
History of Present Illness Consult details Consult date: 01/16/21 Reason for consult: abdominal pain Narrative: Pt is a 70 yo female well known to the bariatric service. This patient had a laparoscopic sleeve gastrectomy January 2019, and has lost very minimal wegiht. She has been noncompliant with meal and exercise programs, last seen in our office May 2020. She complains of fullness and throwing up saliva after eating. No hemetemesis, diarrhea or constipation. She has epigstric pain after eating which does not radiates and has frequent belching. When asked about the meal plan she is following, she was unable to give me specific information regarding types of foods, quantittes or frequency other than ot say she eats a whole plate of food similar to before surgery in 5 minutes. Review of Systems ENT: Denies dysphagia and Denies odynophagia Gastrointestinal: Gastrointestinal: Reports abdominal pain, Reports belching, Denies melena, Denies change in stool character, Denies coffee ground emesis, Denies constipation, Denies dysphagia, Denies excessive flatus, Reports early satiety, Denies heartburn, Denies diarrhea, Reports nausea, Denies odynophagia, Denies vomiting and Denies hematemesis PMFSH Past Medical History Medical History Diabetes type 2, uncontrolled Diabetic polyneuropathy associated with type 2 diabetes mellitus Dyslipidemia Hypertension Obesity Vitamin D deficiency Family History Family History Father Type II diabetes mellitus Obesity Mother HTN (hypertension) Brother Cancer Surgical History Surgical History History of esophagogastroduodenoscopy (EGD) History of eyelid surgery History of sleeve gastrectomy Hx of colonoscopy Hx of tubal ligation Social History Social History Household Members: Spouse Alcohol intake: former Smoking Status: Former smoker Tobacco Type: Cigarette Smoking Quit Date: 1993 Use of substances other than those prescribed or required for medical reasons: No Currently Displaying Signs/Symptoms of Drug Intoxication Withdrawal: No Have you been hit, kicked, punched, or otherwise hurt by someone within the past year? If so, by whom?: No Do you feel safe in your current relationship?: Yes Is there a partner from a previous relationship who is making you feel unsafe now?: No Are you made to feel afraid or neglected: No Advance Directives: No Advance Directives Information Provided: No Do you have thoughts of harming others: None Do you have a plan to hurt others: No Plan service: No Current occupational status: unemployed Meds Allergies Allergy/AdvReac Type Severity Reaction Status Date / Time No Known Allergies Allergy Verified 12/31/20 11:18 Active Medications: Current Medications Generic Name Dose Route Start Last Admin Trade Name Freq PRN Reason Stop Dose Admin Acetaminophen 650 mg 01/15/21 14:25 Acetaminophen 325 Mg Tablet PO Q6H PRN Pain, Mild (Pain Scale 1-3) Aspirin 81 mg 01/16/21 09:00 01/16/21 09:34 Aspirin 81 Mg Tab.Chew PO 81 mg DAILY [facility] Administration Atorvastatin Calcium 40 mg 01/15/21 21:00 01/15/21 20:47 Atorvastatin Calcium 40 Mg Tablet PO 40 mg BEDTIME [facility] Administration Enoxaparin Sodium 40 mg 01/15/21 14:25 01/15/21 15:05 Enoxaparin Sodium 40 Mg/0.4 Ml Syringe SUBCUT 40 mg Q24H [facility] Administration Fluticasone Propionate 2 puff 01/15/21 20:00 01/16/21 07:50 Fluticasone Propionate 250 Mcg Blst.W.Dev INHALE 2 puff RBID [facility] Administration Insulin Human Lispro 0 unit 01/15/21 16:30 01/16/21 11:34 Insulin Lispro 100 Unit/Ml 3 Ml Vial SUBCUT Not Given QIDACHS [facility] Protocol Melatonin 6 mg 01/15/21 21:00 01/15/21 21:01 Melatonin 3 Mg Tablet PO 6 mg BEDTIME [facility] Administration Multivitamins/Vitamin C 1 tab 01/16/21 09:00 01/16/21 09:33 Multivitamin Tablet PO 1 tab DAILY [facility] Administration Omeprazole 20 mg 01/16/21 09:00 01/16/21 09:34 Omeprazole 20 Mg Capsule.Dr PO 20 mg DAILY [facility] Administration Ondansetron HCl 4 mg 01/15/21 14:25 01/15/21 14:38 Ondansetron Hcl 4 Mg/2 Ml Vial IVPUSH 4 mg Q8H PRN Administration Nausea and Vomiting Sodium Chloride 3 ml 01/15/21 16:00 01/16/21 09:33 0.9 % Sodium Chloride Flush 3 Ml Syringe IVFLUSH 3 ml QSHIFT [facility] Administration Venlafaxine HCl 37.5 mg 01/15/21 21:00 01/15/21 20:48 Venlafaxine Hcl Er 37.5 Mg Cap.Er.24h PO Not Given BEDTIME [facility] Vitamin D 50 mcg 01/16/21 09:00 01/16/21 09:34 Cholecalciferol (Vitamin D3) 25 Mcg Tablet PO 50 mcg DAILY [facility] Administration Home Medications Medication Instructions Recorded Confirmed Last Taken Type blood sugar diagnostic #10 ea 07/23/20 10/22/20 Unknown History fluticasone propionate 220 2 puff INHALATION BID 07/23/20 01/15/21 Unknown History mcg/actuation HFA aerosol inhaler lancets 33 gauge #100 ea 07/23/20 10/22/20 Unknown History melatonin 5 mg tablet 5 - 10 mg PO BEDTIME 07/23/20 01/15/21 Unknown History multivitamin 1 tab PO DAILY 07/23/20 01/15/21 Unknown History venlafaxine 37.5 mg 37.5 mg PO BEDTIME 07/23/20 01/15/21 Unknown History capsule,extended release 24 hr pantoprazole 40 mg PO DAILY 01/15/21 01/15/21 Unknown History semaglutide [Ozempic] 0.5 mg SUBCUT QWEEK 01/15/21 01/15/21 Unknown History vitamin A 2 cap PO DAILY 01/15/21 01/15/21 Unknown History Physical Exam Vital Signs: Vital Signs: Last Vital Signs Temp 97.9 F 01/16/21 11:19 Pulse 70 01/16/21 11:19 Resp 20 01/16/21 11:19 BP 124/56 L 01/16/21 11:19 Pulse Ox 96 01/16/21 11:19 Body Mass Index 41.9 Const: General: cooperative, comfortable and no acute distress Nutritional Appearance: obese Orientation/consciousness: patient oriented x3 GI: Inspection: Yes normal to inspection, No distended and Yes obesity Palpation (GI): Soft to palpation, nontender, no guarding, not rigid, no hernias and no masses Neuro: General: patient oriented x3 Results Labs Result diagrams: 01/15/21 07:42 01/15/21 07:42 Labs: All other labs normal. Assessment and Plan (1) Morbid obesity: Status: Acute (2) History of sleeve gastrectomy: Problem details: January 2019 Status: Acute (3) Epigastric pain: Status: Acute Pt is almost 2 years s/p LSG and has been non compliant with minimal weight loss. Her symptoms of post parandial epigastirc pain are due to her eating too frequently, too fast and large quantities of food after sleeve gastrectomy. She is not at risk for anastomotic ulcer and therefore does not need a upper endoscopy. I had a lengthy discussion with patient and her that if she followed an appropriate post sleeve gastectomy meal plan she would not have these symptoms. Her labs wre reviewed and are within normal limits, cardiac enzymes ECG reveal no cardiac etiology for her epigastric pain. Case was discussed with Dr Thomas, bariatric surgeon and we recommend that she be discharged home on bariatric phase 3 diet when admitting team believes she is ready for discharge. Patient should follow up in bariatric office for further counseling and meal planning. Thank you for the opportunity for this consult, please call with any questions. Procedures Date of Service Date of Service: 01/16/21
--- NOTE | 2021-01-16 14:05 | P.DS_ITS ---
DS: Providers Provider Date of Service: 01/16/21 Date of admission: 01/15/21 13:35 Primary care physician: Radha Bran MD Consults: 01/15/21 14:25 Consult to Cardiology [place]ine Consulting [place] [facility] Reason for consultation: chest pain, multiple risk factors 01/16/21 11:07 Consult to Bariatric Surgery Routine Consulting Provider: Arnulfo Thomas Reason for consultation: epigastric pain ?anastomotic ulcr DS: Diagnosis Discharge Diagnosis (1) Morbid obesity: Status: Acute (2) History of sleeve gastrectomy: Status: Acute Problem details: January 2019 (3) Epigastric pain: Status: Acute DS: Medications Discharge Medications Home Medications: Home Medications Medication Instructions Recorded Confirmed blood sugar diagnostic #10 ea 07/23/20 10/22/20 fluticasone propionate 220 2 puff INHALATION BID 07/23/20 01/15/21 mcg/actuation HFA aerosol inhaler lancets 33 gauge #100 ea 07/23/20 10/22/20 melatonin 5 mg tablet 5 - 10 mg PO BEDTIME 07/23/20 01/15/21 multivitamin 1 tab PO DAILY 07/23/20 01/15/21 venlafaxine 37.5 mg 37.5 mg PO BEDTIME 07/23/20 01/15/21 capsule,extended release 24 hr Ozempic 0.5 mg SUBCUT QWEEK 01/15/21 01/15/21 pantoprazole 40 mg PO DAILY 01/15/21 01/15/21 vitamin A 2 cap PO DAILY 01/15/21 01/15/21 Previous Rx's Medication Instructions Recorded atorvastatin 40 mg tablet 40 mg PO BEDTIME 90 Days #90 tab 10/22/20 empagliflozin 25 mg-metformin ER 1 tab PO DAILY 90 Days #90 ea 10/22/20 1,000 mg tablet,extended release 24hr cholecalciferol (vitamin D3) 50 50 mcg PO DAILY 30 Days #30 cap 10/25/20 mcg (2,000 unit) capsule flash glucose scanning reader #1 ea 12/28/20 flash glucose sensor #2 ea 12/28/20 meloxicam 15 mg tablet 15 mg PO DAILY 30 Days #30 tab 12/31/20 diclofenac sodium 1 % topical gel 2 g TOPICAL BID PRN #100 g 01/08/21 DS: Summary Hospital Course Hospital Course: from admission H+P by hospitalist Patrikc Fisher MD, 01/15/21: This is a 70-year-old [place]an-speaking female who presents to the hospital with complaints of chest/epigastric pain which has been ongoing for the last 2 days. Despite the use of a golf course architect, the patient remains a poor historian and as such the history is obtained from the ED provider as well as the patient's was bedside. The patient reports that she has had vague chest/epigastric pain which has occurred multiple times throughout the day with no relationship to food intake which began about 3 days prior to arrival. She reports that the pain radiates to her left shoulder. Upon further questioning she also endorses that she has had chest pressure with exertion for many years and this pain does not necessarily feel the same. She reports that her current pain lasts for a few minutes and she thinks that maybe it does get worse with physical exertion and improved with rest. She does endorse abdominal symptoms o f dyspepsia. Upon arrival to the emergency room her EKG showed no evidence of acute ischemia. To high sensitivity troponins were negative but due to her increased heart score admission was requested. Per discussion with the ED provider, he discussed the case with Cardiology who recommended admission. At the time of my interview, the patient reported her pain had subsided. Per therapeutic consultant Alejo Cee MD, 01/16/21: We are asked to see Halley in cardiology consultation today for symptoms of epigastric discomfort radiating to the retrosternal area. She says this started on Thursday. Symptoms are present at rest, either she sitting up or lying down or can happen when she is walking. There is no clear association with exertion only. Symptoms associated with burping and she feels better. There is no association with food. She also has nausea and feels like she might throw up and has a sour taste in her mouth. She has had prior cardiac workup with echocardiogram in January 2019 which was within normal limits. She has multiple risk factors for cardiovascular disease an yesterday was felt that her symptoms were typical for myocardial ischemia however her cardiac markers are within normal limits including with chest discomfort and her EKG is nonischemic. Her symptoms to me appear to be clearly nonischemic in gastric in nature. She says she has to press on her belly to improve her symptoms. Have impressed the per she does have some tenderness in the area. She has not had any other symptoms. No hematemesis or melena. She has no lightheadedness, syncope, shortness of breath. Off note she had gastric bypass surgery done by Dr. Thomas, she says last year and had done well with weight loss but since then she has had increased oral intake and has gained some of the weight back. To summarize, the patient [place] [facility] [place] troponin measurements and EKGs were negative for ischemia, and clinicially, her symptoms appeared to be of gastrointestinal origin. Bariatrics Surgery was consulted and felt that her symptoms were attributable to excessively frequent, fast, and large meals. She was not felt to be at risk of anastomotic ulcer. She was educated on the need to change her diet and recommended to follow a phase 3 bariatrics diet. She should follow up with her primary care doctor and with the bariatrics office in 2 weeks. Time Spent with Patient Time attestation: Total time spent providing and/or coordinating discharge services: 25 Discharge coordination time: Less than 30 minutes Quality: Stroke Does the patient have a stroke diagnosis?: No Physical Exam Vital Signs: Vital Signs: Last Vital Signs Temp 97.9 F 01/16/21 11:19 Pulse 70 01/16/21 11:19 Resp 20 01/16/21 11:19 BP 124/56 L 01/16/21 11:19 Pulse Ox 96 01/16/21 11:19 Body Mass Index 41.9 Gen: in no acute distress HEENT: sclera anicteric, moist mucus membranes Neck: supple Lungs: clear to auscultation bilaterally Heart: regular rate and rhythm, no murmurs Abd: soft, obese, non-tender, non-distended Ext: no edema Skin: warm/well-perfused Neuro: alert and oriented x3, no focal findings Psych: appropriate affect DS: Data Data Completed and Pending Completed studies during hospitalization [Text1]: Laboratory Results WBC 7.0 X10*3/uL (4.8-10.8) 01/15/21 07:42 RBC 4.83 X10*6/uL (4.20-5.50) 01/15/21 07:42 Hgb 12.8 g/dl (12.0-16.0) 01/15/21 07:42 Hct 39.9 % (37-47) 01/15/21 07:42 MCV 82.6 fL (80-98) 01/15/21 07:42 MCH 26.5 pg (27.0-33.0) L 01/15/21 07:42 MCHC 32.1 g/dl (31.0-35.0) 01/15/21 07:42 RDW 13.8 % (11.0-16.0) 01/15/21 07:42 Plt Count 233 X10*3/uL (160-400) 01/15/21 07:42 MPV 11.6 fL (9.4-12.3) 01/15/21 07:42 Immature Gran % (Auto) 0.1 % (0.0-0.4) 01/15/21 07:42 Neut % (Auto) 65.1 % (45-73) 01/15/21 07:42 Lymph % (Auto) 25.0 % (20-40) 01/15/21 07:42 [place] % (Auto) 8.3 % (2-11) 01/15/21 07:42 Eos % (Auto) 1.4 % (0-4) 01/15/21 07:42 Baso % (Auto) 0.1 % (0-2) 01/15/21 07:42 Lymph # (Auto) 1.8 X10*3/uL (1.2-4.9) 01/15/21 07:42 [place] # (Auto) 0.6 X10*3/uL (0.1-1.2) 01/15/21 07:42 Eos # (Auto) 0.1 X10*3/uL (0.0-0.4) 01/15/21 07:42 Baso # (Auto) 0.0 X10*3/uL (0.0-0.2) 01/15/21 07:42 Abs Immat Gran (auto) 0.01 X10*3/uL (0.00-0.03) 01/15/21 07:42 Absolute Neuts (auto) 4.6 X10*3/uL (2.0-8.3) 01/15/21 07:42 Absolute Nucleated RBC 0.000 X10*3/uL (0.0-0.012) 01/15/21 07:42 Nucleated RBC % (auto) 0.0 /100WBC (0.0-0.2) 01/15/21 07:42 Sodium 139 mmol/L (135-145) 01/15/21 07:42 Potassium 4.3 mmol/L (3.3-5.1) 01/15/21 07:42 Chloride 104 mmol/L (96-108) 01/15/21 07:42 Carbon Dioxide 29 mmol/L (22-29) 01/15/21 07:42 Anion Gap 10 (12-20) L 01/15/21 07:42 BUN 17 mg/dL (9-16) H 01/15/21 07:42 Creatinine 0.62 mg/dL (0.5-1.4) 01/15/21 07:42 Estim Creat Clear Calc 94.5 01/15/21 07:42 Estimated GFR > 60 01/15/21 07:42 POC Glucose 110 mg/dL (60-115) 01/16/21 11:08 Random Glucose 116 mg/dL (60-115) H 01/15/21 07:42 Calcium 9.4 mg/dL (8.4-10.2) 01/15/21 07:42 Total Bilirubin 0.6 mg/dL (0.0-1.0) 01/15/21 07:42 Direct Bilirubin 0.2 mg/dL (0.0-0.5) 01/15/21 07:42 AST 14 U/L (5-31) 01/15/21 07:42 ALT 17 U/L (0-31) 01/15/21 07:42 Alkaline Phosphatase 78 U/L (39-117) 01/15/21 07:42 Troponin I High Sens < 3.5 ng/L (<3.5-17.0) 01/15/21 16:50 Total Protein 6.8 g/dL (6.5-8.0) 01/15/21 07:42 Albumin 3.9 g/dL (3.5-5.0) 01/15/21 07:42 Lipase 22 U/L (8-78) 01/15/21 07:42 COVID-19 ([place]) Negative (Negative) 01/15/21 13:15 COVID-19 Clin Com See Note 01/15/21 13:15 Discharge Plan Discharge Patient Disposition: Home, Self-Care Referrals: Radha Bran MD [Primary Care Provider] - 1 Week Arnulfo Thomas MD [Physician] - 2 Weeks Discharge Medications: Continued cholecalciferol (vitamin D3) 50 mcg (2,000 unit) capsule 50 mcg PO DAILY 30 Days Qty: 30 RF: 6 (DME) FreeStyle [place] 2 [place] Misc See Rx Instructions .ROUTE .MEDSUPPLY Qty: 1 RF: 0 (DME) FreeStyle [place] 2 Sensor Kit See Rx Instructions .ROUTE .MEDSUPPLY Qty: 2 RF: 11 diclofenac sodium 1 % gel 2 g topical BID PRN (Reason: pain) Qty: 100 RF: 2 Ozempic 0.25 mg or 0.5 mg(2 mg/1.5 mL) pen injector 0.5 mg subcut QWEEK RF: 0 pantoprazole 40 mg tablet,delayed release (DR/EC) 40 mg PO DAILY RF: 0 vitamin A 2,400 mcg capsule 2 cap PO DAILY RF: 0 fluticasone propionate 220 mcg/actuation HFA aerosol inhaler 2 puff inhalation BID RF: 0 (DME) lancets 33 gauge misc See Rx Instructions ea Not Applicable BID Qty: 100 RF: 0 melatonin 5 mg tablet 5 - 10 mg PO BEDTIME RF: 0 (DME) blood sugar diagnostic Strip See Rx Instructions ea Not Applicable BID Qty: 10 RF: 0 venlafaxine 37.5 mg capsule,extended release 24hr 37.5 mg PO BEDTIME RF: 0 multivitamin Tablet 1 tab PO DAILY RF: 0 meloxicam 15 mg tablet 15 mg PO DAILY 30 Days Qty: 30 RF: 0 Synjardy XR 25-1,000 mg tablet, IR - ER, biphasic 24hr 1 tab PO DAILY 90 Days Qty: 90 RF: 3 atorvastatin 40 mg tablet 40 mg PO BEDTIME 90 Days Qty: 90 RF: 2 Discharge Orders: Discharge Order (Routine); Ordered 01/16/21 Ordered By: Starla Ross Diet: other Activity on Discharge: As tolerated Stand Alone Forms: Patient Portal Discharge page Care Plan Goals: relief of abdominal pain Health Concerns: post parandial epigastirc due to eating too frequently, too fast and large quantities of food after sleeve gastrectomy Plan of Treatment: follow up with Dr Raftopoulous (Bariatric Surgery) in 2 weeks Bariatrics phase 3 diet Phase 3: Adaptive or Soft Food Diet for Post-Bariatric Surgery Patients During this phase after bariatric surgery, you will transition to more solid foods. This may include soft meat, fish, chicken, cereals, cooked vegetables, and canned and fresh fruits. During the soft diet, continue to: Incorporate high protein foods into your diet and consume them first at meals. Women: 50?60 grams of protein Men: 60?70 grams of protein Take your chewable vitamin supplement with minerals. Drink plenty of fluids, 48?64 ounces (six to eight, 8-ounce cups) per day. Post-Bariatric Surgery Meal Plan for Phase 3: Adaptive/Soft Foods Diet Consume three small meals each day. Add a variety of low fat, low calorie starches, fruits, and vegetables to your diet, as tolerated. Avoid skins and seeds on fruits and vegetables. Avoid breads. Chew foods thoroughly. Stop eating whenever you feel full. Continue using protein supplements after each meal to meet your daily protein requirements. Liquids between meals Wait at least 30 minutes after each meal. Then consume an 8 ounce protein supplement or shake, followed by 16 ounces of sugar free, clear liquids. Try to spread fluids out over a three-hour period. Stop drinking at least 30 minutes before mealtime. In addition to the foods listed on the pureed diet, begin introducing the following foods to your diet. After Bariatric Surgery - Suggested Food Ideas for Adaptive or Soft Diet Protein Sources All varieties of fish and shellfish [place] breast or chicken breast (chopped, white meat) Low fat deli lunchmeats Sliced or grated low fat cheese (5 grams of fat or less) Hard boiled or poached eggs Soups (dilute with skim milk or add finely minced meats) Grains/starches Hot cereals Unsweetened cereals softened in skim milk Baked potatoes, sweet potatoes, or yams Boiled pasta, noodles, or white rice Fruits/vegetables Canned fruit (in own juices or water packed) Soft, fresh fruit without skins (apples, pears, peaches) Bananas Cooked or canned vegetables Avoid raw, fibrous vegetables like broccoli and [place] sprouts. Avoid skins and seeds. After Bariatric Surgery - Sample Menu for Phase 3: Adaptive or Soft Diet Eat the protein portion of your meal first, and don't forget your liquids between meals (about 30 minutes after each meal). Breakfast Protein: ? cup scrambled eggs or egg substitute Starch: ? cup hot cereal Fruit: ? cup canned peaches in own juice Fat: 1 teaspoon margarine Lunch Protein: ? cup (1 ounce) deli sliced turkey breast Starch: ? cup mashed potatoes Fruit/vegetable: ? cup pears or mixed fruit in own juice or light Fat: 1 teaspoon margarine Dinner Protein: ? cup (1 ounce) white fish (no breading) Starch: ? cup sweet potato Vegetable: ? cup cooked green beans Fat: 1 teaspoon margarine Tips and Ideas for Staying Hydrated Sip all fluids slowly to prevent nausea and vomiting Carry a water bottle with you everywhere Other liquids to help maintain hydration include decaffeinated coffee and tea, broth, and sugar free fruit juices and other beverages with artificial sweeteners Next Your bariatric surgeon will advise you when to advance to the next phase of your diet. Assessment: as above Patient Instructions: Nutrition after Bariatric Surgery (DC)
--- NOTE | 2021-01-16 14:21 | MHC.CM.PN ---
Patient will be discharged home today no services. Family will provide transportation.
[2021-01-16 15:36] VITALS: BP 110/51; PULSE 76; RESP 18; TEMP 37; O2SAT 95
[2021-01-16 16:17] LABS: Glucose, Whole Blood 122 mg/dL (60-115)
== END 2021-01-16 17:14 | disposition home or self-care (01) ==
LOC: HO.ED 09:40 → HO.IMC 14:18
PROVIDERS: Admitting Provider Family Medicine; Emergency Provider Emergency Medicine; PCP Internal Medicine; Visit Provider Family Medicine
DX: R07.2 Precordial pain (principal); R10.13 Epigastric pain; E66.01 Morbid (severe) obesity due to excess calories; E11.65 Type 2 diabetes mellitus with hyperglycemia; E11.42 Type 2 diabetes mellitus with diabetic polyneuropathy; E55.9 Vitamin D deficiency, unspecified; E78.5 Hyperlipidemia, unspecified; Z20.822 Contact with and (suspected) exposure to COVID-19; Z87.891 Personal history of nicotine dependence; Z68.41 Body mass index [BMI] 40.0-44.9, adult; Z90.3 Acquired absence of stomach [part of]; Z79.4 Long term (current) use of insulin; Z91.19 Patient's noncompliance with other medical treatment and regimen
CPT/HCPCS: 36415; 80048; 80076; 82947; 83690; 84484; 85025; 87635; 93005; 96372; 96374; 96375; 96376; 99219; 99285; J1650; J2405

== ENCOUNTER → 2021-01-21 11:51 | Outpatient (BNVA) | payer MEDICARE, SELFPAY | PROVIDERS: PCP Internal Medicine; Visit Provider Internal Medicine Endocrinology, Diabetes & Metabolism | DX: Z13.89 Encounter for screening for other disorder (principal) | CPT/HCPCS: Q3014 ==

== ENCOUNTER 2021-01-23 10:49 | Outpatient (REF) | payer MEDICARE, SELFPAY ==
[2021-01-23 12:15] LABS: Estimated Average Glucose 146 mg/dL; Hemoglobin A1c % 6.7 %
[2021-01-23 12:16] LABS: Alanine Aminotransferase 16 U/L (0-31); Alkaline Phosphatase 77 U/L (39-117); Anion Gap 11 (12-20); Aspartate Amino Transferase 16 U/L (5-31); Bilirubin Total 0.4 mg/dL (0.0-1.0); Blood Urea Nitrogen 15 mg/dL (9-16); Calcium 9.5 mg/dL (8.4-10.2); Carbon Dioxide 26 mmol/L (22-29); Chloride 105 mmol/L (96-108); Cholesterol 193 mg/dL; Estimated Glomerular Filt Rate > 60; Glucose Fasting 111 mg/dL (60-99); HDL Cholesterol 45 mg/dL; LDL Cholesterol Calculated 119 mg/dl; Potassium 4.3 mmol/L (3.3-5.1); Sodium 138 mmol/L (135-145); Triglycerides 148 mg/dL
[2021-01-24 04:07] LABS: LDL Cholesterol Direct 118 mg/dL (<100)
== END 2021-01-23 10:50 | disposition home or self-care (01) ==
LOC: HO.LAB 10:49
PROVIDERS: PCP Internal Medicine; Visit Provider Internal Medicine Endocrinology, Diabetes & Metabolism
DX: E11.65 Type 2 diabetes mellitus with hyperglycemia (principal)
CPT/HCPCS: 36415; 80053; 80061; 83036; 83721

== ENCOUNTER → 2021-01-24 14:18 | Outpatient (BNVA) | payer MEDICARE, SELFPAY | PROVIDERS: PCP Internal Medicine; Visit Provider Physician Assistant | DX: E66.01 Morbid (severe) obesity due to excess calories (principal); Z90.3 Acquired absence of stomach [part of]; Z68.41 Body mass index [BMI] 40.0-44.9, adult | CPT/HCPCS: 99212 ==

== ENCOUNTER 2021-02-07 14:06 | Outpatient (REF) | payer MEDICARE, SELFPAY ==
[2021-02-07 15:38] LABS: Vitamin D 25-OH Total 22.3 ng/mL (>30)
[2021-02-07 15:56] LABS: Folate 7.5 ng/mL (> or = 4.0); Vitamin B12 541 pg/mL (200-900)
[2021-02-11 06:12] LABS: Vitamin B1 9 nmol/L (8-30)
[2021-02-13 01:22] LABS: Vitamin A 30 mcg/dL (38-98)
== END 2021-02-07 14:07 | disposition home or self-care (01) ==
LOC: HO.LAB 14:06
PROVIDERS: Physician Assistant; Visit Provider Internal Medicine
DX: E66.01 Morbid (severe) obesity due to excess calories (principal); E50.9 Vitamin A deficiency, unspecified; Z90.3 Acquired absence of stomach [part of]; Z20.822 Contact with and (suspected) exposure to COVID-19
CPT/HCPCS: 36415; 82306; 82607; 82746; 84425; 84590; C9803; U0003; U0005

== ENCOUNTER 2021-02-09 07:24 | Outpatient (REF) | payer MEDICARE, SELFPAY ==
[2021-02-09 08:48] LABS: Alanine Aminotransferase 16 U/L (0-31); Albumin Level 3.9 g/dL (3.5-5.0); Alkaline Phosphatase 79 U/L (39-117); Anion Gap 10 (12-20); Aspartate Amino Transferase 18 U/L (5-31); Bilirubin Total 0.4 mg/dL (0.0-1.0); Blood Urea Nitrogen 15 mg/dL (9-16); Calcium 9.1 mg/dL (8.4-10.2); Carbon Dioxide 28 mmol/L (22-29); Chloride 106 mmol/L (96-108); Cholesterol 177 mg/dL; Estimated Glomerular Filt Rate > 60; Glucose Fasting 127 mg/dL (60-99); HDL Cholesterol 52 mg/dL; LDL Cholesterol Calculated 95 mg/dl; Potassium 4.4 mmol/L (3.3-5.1); Sodium 140 mmol/L (135-145); Total Protein 6.8 g/dL (6.5-8.0); Triglycerides 154 mg/dL
[2021-02-10 09:47] LABS: LDL Cholesterol Direct 101 mg/dL (<100)
[2021-02-13 11:03] LABS: Vitamin A 32 mcg/dL (38-98)
== END 2021-02-09 07:25 | disposition home or self-care (01) ==
LOC: HO.LAB 07:24
PROVIDERS: Physician Assistant; PCP Internal Medicine; Visit Provider Internal Medicine Endocrinology, Diabetes & Metabolism
DX: E66.01 Morbid (severe) obesity due to excess calories (principal); E11.65 Type 2 diabetes mellitus with hyperglycemia; Z90.3 Acquired absence of stomach [part of]
CPT/HCPCS: 36415; 80053; 80061; 83721; 84590

== ENCOUNTER → 2021-02-26 08:18 | Outpatient (BNVA) | payer MEDICARE, SELFPAY | PROVIDERS: PCP Internal Medicine; Visit Provider Physician Assistant ==

== ENCOUNTER → 2021-04-16 11:55 | Outpatient (BNVA) | payer OTHER, SELFPAY | PROVIDERS: Visit Provider Physician Assistant | DX: G56.01 Carpal tunnel syndrome, right upper limb (principal); M65.331 Trigger finger, right middle finger | CPT/HCPCS: 99212 ==

== ENCOUNTER 2021-04-21 12:24 | Emergency (ER) | payer OTHER, SELFPAY ==
[2021-04-21 13:27] VITALS: BP 139/82; PULSE 80; RESP 18; TEMP 36.6; O2SAT 97; BMI 40.2
[2021-04-21 13:51] LABS: Glucose Urine UA NEG (NEG); Leukocyte Esterase Urine TRACE (NEG); Nitrite Urine NEG (NEG); UACC Culture Trigger YES; Urine Blood 2+ (NEG); Urine Ketones NEG (NEG); Urine Protein 2+ MG/DL (NEG-TRACE)
[2021-04-21 13:52] LABS: Appearance Urine CLOUDY; Color Urine RED; Specific Gravity - Urine 1.025 (1.005-1.025)
[2021-04-21 13:59] LABS: Bacteria Urine TRACE /LPF; RBC Urine TNTC /HPF (0); Squamous Epithelial Cell Urine TRACE /LPF
--- NOTE | 2021-04-21 14:41 | ED.FEMALEGU ---
HPI - Female Genitourinary General Chief complaint: Urogenital-Female Stated complaint: pain Time Seen by Provider: 04/21/21 14:41 History of Present Illness HPI Narrative: Patient complains of burning with urination for 2 days with increased frequency and feeling of pressure in her bladder area, there is no abdominal pain no pelvic pain no flank pain no fever no nausea or vomiting, no back pain Related Data Home Medications Medication Instructions Recorded Confirmed fluticasone propionate 220 2 puff INHALATION BID 07/23/20 01/21/21 mcg/actuation HFA aerosol inhaler melatonin 5 mg tablet 5 - 10 mg PO BEDTIME 07/23/20 01/21/21 multivitamin 1 tab PO DAILY 07/23/20 01/21/21 venlafaxine 37.5 mg 37.5 mg PO BEDTIME 07/23/20 01/21/21 capsule,extended release 24 hr pantoprazole 40 mg tablet,delayed 40 mg PO DAILY 01/15/21 01/21/21 release Previous Rx's Medication Instructions Recorded cholecalciferol (vitamin D3) 50 50 mcg PO DAILY 30 Days #30 cap 10/25/20 mcg (2,000 unit) capsule meloxicam 15 mg tablet 15 mg PO DAILY 30 Days #30 tab 12/31/20 diclofenac sodium 1 % topical gel 2 g TOPICAL BID PRN #100 g 01/08/21 FreeStyle Lite Strips (blood sugar #300 ea NS 01/21/21 diagnostic) empagliflozin 25 mg-metformin ER 1 tab PO DAILY 90 Days #90 ea 01/21/21 1,000 mg tablet,extended release 24hr (Synjardy XR) lancets 33 gauge #300 ea 01/21/21 OneTouch Ultra Blue Test Strip #300 ea NS 01/22/21 (blood sugar diagnostic) blood-glucose meter (OneTouch #1 ea 01/22/21 Ultra2 Meter) lancets (OneTouch UltraSoft #300 ea 01/22/21 Lancets) semaglutide 1 mg/dose (4 mg/3 mL) 1 mg SUBCUT QWEEK 90 Days #9.75 ml 01/22/21 subcutaneous pen injector (Ozempic) atorvastatin 80 mg tablet 80 mg PO BEDTIME 90 Days #90 tab 01/30/21 Ozempic (semaglutide) 1 mg SUBCUT QWEEK 90 Days #12 ml NS 02/11/21 Ozempic 1 mg/dose (4 mg/3 mL) 1 mg SUBCUT QWEEK 30 Days #3 ml NS 02/11/21 subcutaneous pen injector (semaglutide) vitamin A 2,400 mcg capsule 4,800 mcg PO DAILY #30 cap 02/13/21 nitrofurantoin 100 mg PO Q12H 5 Days #10 cap 04/21/21 monohydrate/macrocrystals 100 mg capsule (Macrobid) phenazopyridine 200 mg tablet 200 mg PO TID PRN #6 tab 04/21/21 (Pyridium) Allergies Allergy/AdvReac Type Severity Reaction Status Date / Time No Known Allergies Allergy Verified 01/24/21 14:41 seasonal Allergy Intermediate cough Uncoded 04/16/21 12:31 Review of Systems Review of Systems: Positive for burning with urination and urinary frequency for 1 day Negatives are no fever no chills no dizziness weakness no fainting no feeling faint no headache no neck pain no chest pain no abdominal pain no back pain no flank pain no nausea vomiting or diarrhea no skin rash no leg swelling Yes all other systems are reviewed and are negative PMFSH Past Medical History Source: nursing notes reviewed Medical History Diabetes type 2, uncontrolled Diabetic polyneuropathy associated with type 2 diabetes mellitus Dyslipidemia Hypertension Morbid obesity Obesity Vitamin D deficiency Surgical History History of esophagogastroduodenoscopy (EGD) History of eyelid surgery History of sleeve gastrectomy Hx of colonoscopy Hx of tubal ligation Family History Family History Father Type II diabetes mellitus Obesity Mother HTN (hypertension) Brother Cancer Social History Social History (Updated 04/16/21 @ 12:24 by Ab Ortiz) Household Members: Spouse Alcohol intake: former Advance Directives: No Advance Directives Information Provided: No service: No Current occupational status: unemployed Current occupation: rt handed Physical Exam Vital Signs: Vital Signs: Last Vital Signs Temp 98 F 04/21/21 13:27 Pulse 80 04/21/21 13:27 Resp 18 04/21/21 13:27 BP 139/82 04/21/21 13:27 Pulse Ox 97 04/21/21 13:27 Body Mass Index 40.2 General appearance no acute distress The head is normocephalic atraumatic Neck is supple nontender Respiratory no distress The abdomen is soft and nontender The back there is no flank tenderness no CVA tenderness Extremities full range of motion x4, no edema Skin no rash Course Course Course Narrative: Urinalysis had trace bacteria, positive for leukocyte esterase, had both rbc's and wbc's and was consistent with urinary tract infection which is also consistent with her symptoms, she had no evidence of pyelonephritis no evidence of fever or vomiting and well-appearing patient was discharged with antibiotic for urinary tract infection MDM - Female Genitourinary Lab Data Labs: Lab Results 04/21/21 Range/Units 13:39 Urine Color RED Urine Appearance CLOUDY Urine pH 7.0 (5.0-8.0) Ur Specific [place] 1.025 (1.005-1.025) Urine Protein 2+ H (NEG-TRACE) MG/DL Urine Glucose (UA) NEG (NEG) MG/DL Urine Ketones NEG (NEG) MG/DL Urine Blood 2+ H (NEG) Urine Nitrite NEG (NEG) Ur Leukocyte Esterase TRACE H (NEG) Urine RBC TNTC H (0) /HPF Urine WBC 15-29 H (0-4) /HPF Ur Squamous Epith Cells TRACE /LPF Urine Bacteria TRACE /LPF Discharge Plan Discharge Clinical Impression: Urinary tract infection Patient Disposition: Home, Self-Care Additional Instructions: Testing showed you of urinary tract infection Use Macrobid antibiotic You can use Pyridium which helps relieve bladder discomfort Return any time for fever, vomiting, abdominal or back pain any worse condition or any concerns Prescriptions: New nitrofurantoin monohyd/m-cryst [Macrobid] 100 mg capsule 100 mg PO Q12H 5 Days Qty: 10 RF: 0 phenazopyridine [Pyridium] 200 mg tablet 200 mg PO TID PRN (Reason: Discomfort with urination) Qty: 6 RF: 0 No Action cholecalciferol (vitamin D3) 50 mcg (2,000 unit) capsule 50 mcg PO DAILY 30 Days Qty: 30 RF: 6 diclofenac sodium 1 % gel 2 g topical BID PRN (Reason: pain) Qty: 100 RF: 2 Ozempic 1 mg/dose (4 mg/3 mL) pen injector 1 mg subcut QWEEK 90 Days Qty: 9.75 RF: 2 atorvastatin 80 mg tablet 80 mg PO BEDTIME 90 Days Qty: 90 RF: 1 Ozempic 0.25 mg or 0.5 mg(2 mg/1.5 mL) pen injector 1 mg subcut QWEEK 90 Days Qty: 12 RF: 2 Ozempic 1 mg/dose (4 mg/3 mL) pen injector 1 mg subcut QWEEK 30 Days Qty: 3 RF: 6 vitamin A 2,400 mcg capsule 4,800 mcg PO DAILY Qty: 30 RF: 0 pantoprazole 40 mg tablet,delayed release (DR/EC) 40 mg PO DAILY RF: 0 fluticasone propionate 220 mcg/actuation HFA aerosol inhaler 2 puff inhalation BID RF: 0 melatonin 5 mg tablet 5 - 10 mg PO BEDTIME RF: 0 venlafaxine 37.5 mg capsule,extended release 24hr 37.5 mg PO BEDTIME RF: 0 multivitamin Tablet 1 tab PO DAILY RF: 0 meloxicam 15 mg tablet 15 mg PO DAILY 30 Days Qty: 30 RF: 0 (DME) FreeStyle Lite Strips Strip See Rx Instructions ea Not Applicable BID Qty: 300 RF: 2 Synjardy XR 25-1,000 mg tablet, IR - ER, biphasic 24hr 1 tab PO DAILY 90 Days Qty: 90 RF: 3 (DME) lancets 33 gauge misc See Rx Instructions ea Not Applicable BID Qty: 300 RF: 2 (DME) blood-glucose meter [OneTouch Ultra2 Meter] Kit See Rx Instructions .ROUTE .MEDSUPPLY Qty: 1 RF: 0 (DME) OneTouch Ultra Blue Test Strip Strip See Rx Instructions .ROUTE .MEDSUPPLY Qty: 300 RF: 1 (DME) lancets [OneTouch UltraSoft Lancets] Misc See Rx Instructions .ROUTE .MEDSUPPLY Qty: 300 RF: 1 Interventions: ED Discharge Assessment Last Done: 04/21/21 15:14 Discharge Date/Time: 04/21/21 15:14
[2021-04-21] MEDS: Nitrofurantoin Monohyd/M-Cryst 100 MG CAPSULE PO (14:59)
[2021-04-21] MEDS: Phenazopyridine HCL 200 MG TABLET PO (14:59)
== END 2021-04-21 15:14 | disposition home or self-care (01) ==
PROVIDERS: Emergency Provider Emergency Medicine
DX: N39.0 Urinary tract infection, site not specified (principal); R30.0 Dysuria; R35.0 Frequency of micturition; Z79.899 Other long term (current) drug therapy
CPT/HCPCS: 81001; 87086; 87088; 87186; 99283; 99284

== ENCOUNTER → 2021-05-09 10:13 | Outpatient (BNVA) | payer OTHER, SELFPAY | PROVIDERS: Visit Provider Nurse Practitioner | DX: K59.04 Chronic idiopathic constipation (principal); K21.9 Gastro-esophageal reflux disease without esophagitis; E66.01 Morbid (severe) obesity due to excess calories; R14.0 Abdominal distension (gaseous) | CPT/HCPCS: 99212 ==

== ENCOUNTER → 2021-05-16 14:42 | Outpatient (BNVA) | payer OTHER, SELFPAY | PROVIDERS: Visit Provider Physician Assistant Surgical | DX: E66.01 Morbid (severe) obesity due to excess calories (principal); E50.9 Vitamin A deficiency, unspecified; Z68.41 Body mass index [BMI] 40.0-44.9, adult | CPT/HCPCS: 99212 ==

== ENCOUNTER 2021-05-28 06:27 | Day surgery (SDC) | payer OTHER, SELFPAY ==
--- NOTE | 2021-05-20 10:45 | HO.ANESPROP2 ---
Documented by User: Marilyn Arnett NP 05/20/21 10:49 HPI - Anesthesia Eval Consult details Narrative: 71yo F for Right Carpal Tunnel Release,right middle finger A1 pully release 12/2020 [facility] [place] admit with chest pain. Cardiac r/o, gastric in nature. [facility] Active Problems Active Problems: All Active Problems (Updated 04/22/21 @ 00:01 by Ceci Cornelius) Morbid obesity (Acute) Epigastric pain (Acute) Carpal tunnel syndrome of right wrist (Acute) Osteoarthritis of left hip (Acute) Hip pain (Acute) Chronic idiopathic constipation (Acute) GERD (gastroesophageal reflux disease) (Acute) Abdominal bloating (Acute) Numbness and tingling in both hands (Acute) Trigger finger, right middle finger (Acute) Vitamin D deficiency (Acute) Vitamin A deficiency (Acute) Primary osteoarthritis involving multiple joints (Acute) Obesity (Acute) Dyslipidemia (Acute) Hypertension (Acute) Diabetic polyneuropathy associated with type 2 diabetes mellitus (Acute) Diabetes type 2, uncontrolled (Acute) Past Medical History Medical History Diabetes type 2, uncontrolled Diabetic polyneuropathy associated with type 2 diabetes mellitus Dyslipidemia Hypertension Morbid obesity Obesity Vitamin D deficiency Family History Family History Father Type II diabetes mellitus Obesity Mother HTN (hypertension) Brother Cancer Surgical History Surgical History (Updated 05/28/21 @ 10:00 by Maggie Guillory MD) H/O foot surgery History of dilatation and curettage History of esophagogastroduodenoscopy (EGD) History of eyelid surgery History of sleeve gastrectomy Hx of colonoscopy Hx of tubal ligation S/P trigger finger release Social History Social History Household Members: Spouse Alcohol intake: former Patient Tobacco Use Status: Former Tobacco user Tobacco use type: Cigarette Use of substances other than those prescribed or required for medical reasons: No Are you DNR?: No Advance Directives: No Advance Directives Information Provided: Yes service: No Current occupational status: unemployed Current occupation: rt handed Meds Allergies Allergy/AdvReac Type Severity Reaction Status Date / Time No Known Allergies Allergy Verified 05/16/21 14:47 seasonal Allergy Intermediate cough Uncoded 04/16/21 12:31 Home Medications Medication Instructions Recorded Confirmed Last Taken Type fluticasone propionate 220 2 puff INHALATION BID 07/23/20 05/16/21 Unknown History mcg/actuation HFA aerosol inhaler melatonin 5 mg tablet 5 - 10 mg PO BEDTIME 07/23/20 05/16/21 Unknown History multivitamin 1 tab PO DAILY 07/23/20 05/16/21 Unknown History venlafaxine 37.5 mg 37.5 mg PO BEDTIME 07/23/20 05/16/21 Unknown History capsule,extended release 24 hr Exam Exam Date and Time: May 20, 2021 1045 Pertinent Lab Results Pertinent Lab Results: Laboratory Tests 01/15/21 02/09/21 07:42 07:30 WBC 7.0 Hgb 12.8 Hct 39.9 Plt Count 233 Sodium 140 Potassium 4.4 Chloride 106 Carbon Dioxide 28 BUN 15 Creatinine 0.66 Narrative Narrative: EKG 12/2020 Vent. Rate : 076 BPM ? ? Atrial Rate : 076 BPM ?? P-R Int : 162 ms? QRS Dur : 070 ms ? ? QT Int : 378 ms ? ? ? P-R-T Axes : 053 006 025 degrees ?? QTc Int : 425 ms ? Sinus rhythm with marked sinus arrhythmia Otherwise normal ECG When compared with ECG of 31-JAN-2019 12:54, No significant change was found ECHO 01/2019 Nml LV systolic function with grade 1 LV DD Normal cardiac valvular doppler Nml RV systolic pressure No pericardial effusion Assessment and Plan Assessment Anesthesia Assessment: Chart Reviewed Documented by User: Maggie Guillory MD 05/28/21 10:03 [facility] Active Problems Active Problems: All Active Problems (Updated 04/22/21 @ 00:01 by Background Daemon) Morbid obesity (Acute) Epigastric pain (Acute) Carpal tunnel syndrome of right wrist (Acute) Osteoarthritis of left hip (Acute) Hip pain (Acute) Chronic idiopathic constipation (Acute) GERD (gastroesophageal reflux disease) (Acute) Abdominal bloating (Acute) Numbness and tingling in both hands (Acute) Trigger finger, right middle finger (Acute) Vitamin D deficiency (Acute) Vitamin A deficiency (Acute) Primary osteoarthritis involving multiple joints (Acute) Obesity (Acute) Dyslipidemia (Acute) Hypertension (Acute) Diabetic polyneuropathy associated with type 2 diabetes mellitus (Acute) Diabetes type 2, uncontrolled (Acute) REY. Not using CPAP H/o asthma H/o bipolar disorder H/o anemia Past Medical History Medical History Diabetes type 2, uncontrolled Diabetic polyneuropathy associated with type 2 diabetes mellitus Dyslipidemia Hypertension Morbid obesity Obesity Vitamin D deficiency Family History Family History Father Type II diabetes mellitus Obesity Mother HTN (hypertension) Brother Cancer Family history of problems with anesthesia: No Surgical History Surgical History (Updated 05/28/21 @ 10:00 by Maggie Guillory MD) H/O foot surgery History of dilatation and curettage History of esophagogastroduodenoscopy (EGD) History of eyelid surgery History of sleeve gastrectomy Hx of colonoscopy Hx of tubal ligation S/P trigger finger release History of Problems with Anesthesia: No Social History Social History Household Members: Spouse Alcohol intake: former Patient Tobacco Use Status: Former Tobacco user Tobacco use type: Cigarette Use of substances other than those prescribed or required for medical reasons: No Are you DNR?: No Advance Directives: No Advance Directives Information Provided: Yes service: No Current occupational status: unemployed Current occupation: rt handed Meds Allergies Allergy/AdvReac Type Severity Reaction Status Date / Time No Known Allergies Allergy Verified 05/16/21 14:47 seasonal Allergy Intermediate cough Uncoded 04/16/21 12:31 Home Medications Medication Instructions Recorded Confirmed Last Taken Type fluticasone propionate 220 2 puff INHALATION BID 07/23/20 05/16/21 Unknown History mcg/actuation HFA aerosol inhaler melatonin 5 mg tablet 5 - 10 mg PO BEDTIME 07/23/20 05/16/21 Unknown History multivitamin 1 tab PO DAILY 07/23/20 05/16/21 Unknown History venlafaxine 37.5 mg 37.5 mg PO BEDTIME 07/23/20 05/16/21 Unknown History capsule,extended release 24 hr Exam Height,Weight and Vital Signs: Height 5 ft 2 in Weight 98.883 kg Vital Signs Temp Pulse Resp BP Pulse Ox 05/28/21 07:59 96.7 F L 73 20 136/54 L 96 Pertinent Lab Results Pertinent Lab Results: Laboratory Tests 01/15/21 02/09/21 07:42 07:30 WBC 7.0 Hgb 12.8 Hct 39.9 Plt Count 233 Sodium 140 Potassium 4.4 Chloride 106 Carbon Dioxide 28 BUN 15 Creatinine 0.66 Lab Results 05/28/21 Range/Units 08:05 POC Glucose 165 H (60-115) mg/dL Airway Mallampati Class: III TM Dist: >3cm Neck ROM: Full Heart: RRR Lungs: CTAB Assessment and Plan Assessment Anesthesia Assessment: Anesthesia Plan Discussed Final Anesthetic Review Family History of Problems with Anesthesia: No History of Problems with Anesthesia: No NPO: Yes ASA Class: III Final Preanesthetic Review: No Changes in Pt Med Stat, Meds/Allgs Chart Reviewed, Consent Obtained/Reviewed and Anes Risks/Benef Reviewed Patient Risk: Intermediate Procedure Risk: Low Assessment/Block/Sedation in SS: Assess/Block/Sedation-SS Anesthetic Plan Anesthetic Plan: GA Disposition: Standard PACU
[2021-05-28 07:59] VITALS: BP 136/54; PULSE 73; RESP 20; TEMP 35.9; O2SAT 96; BMI 39.9
[2021-05-28 08:08] LABS: Glucose, Whole Blood 165 mg/dL (60-115)
[2021-05-28] MEDS: Lactated Ringers 1,000 ML 100 ML IVCONT (08:33)
--- NOTE | 2021-05-28 09:14 | P.OP_ITS ---
Operative Note Operative Note Date of Service: 05/28/21 Narrative: Preop diagnosis: 1. Right Carpal tunnel syndrome 2. Right middle finger trigger finger Postop diagnosis: same Procedure: 1. Right Carpal tunnel release 2. Right middle finger A1 kayden release Surgeon: Sharona Garcia MD Anesthesia: local block using 1% lidocaine with epinephrine Findings: Thickened transverse carpal ligament. No locking or catching after A1 kayden release EBL: Less than 5 mL Tourniquet time: 8 minutes Complications: None Disposition: Brought to recovery room in stable condition Plan: Follow-up for 7-10 days for wound check and suture removal Indications: The patient is 71 years old, with right carpal tunnel syndrome and a right middle finger trigger finger that have been unresponsive to nonoperative management. The risks and benefits of operative treatment in cluding but not limited to risk of damage to blood vessels, nerves, tendons, infection, persistent pain, persistent symptoms, or possible need for additional surgery were discussed with the patient and the patient wishes to proceed with surgery. Procedure: Once consent was obtained Patient was brought back to the operating suite and placed on the operative table in supine position. Anesthesia was performed by the anesthesia team. A tourniquet was applied to the proximal aspect of the right upper extremity and the limb was prepped and draped in a standard surgical fashion. The limb was elevated exsanguinated with an Esmarch bandage and the tourniquet inflated to 250 mm of mercury for a total tourniquet time of 8 minutes. A 1.5 cm oblique incision was made centered over the A1 kayden of the right middle finger .? The incision was made through the skin to the subcutaneous tissues using a #15 blade.? Careful dissection was made down to the level of the A1 kayden using tenotomy scissors, with care being taken to protect the nearby neurovascular structures.? A longitudinal incision was made in the A1 kayden 1st using a #15 blade, then using tenotomy scissors under direct visualization.? The A1 kayden was noted to be thickened.? Following our A1 kayden release, we no longer saw any locking or catching of the digit with passive flexion and extension. A 2.0 cm longitudinal incision was made centered over the carpal tunnel. The incision was made through the skin to the subcutaneous tissues using a #15 blade. Dissection was made down to the level of the transverse carpal ligament with care being taken to protect the palmar cutaneous nerve. Once the transverse carpal ligament was clearly visualized, a longitudinal incision was made in the transverse carpal ligament 1st using a #15 blade, then using tenotomy scissors under direct visualization. Care was taken to look for and protect the motor branch of the median nerve when seen in this area. Once satisfied with our carpal tunnel release the wound was copiously irrigated with normal saline, the tourniquet was deflated and hemostasis was obtained with a brief period of local pressure. The skin edges were reapproximated with some 5.0 nylon suture material and a sterile dressing was applied. The patient appears to have tolerated the procedure well and with no complications. All digits were well vascularized at the conclusion of the case.
--- NOTE | 2021-05-28 09:14 | MHC.SHP ---
Pre-Procedural Eval Section A Date of Service: 05/28/21 The patient is an INPATIENT: No Changes since office visit: No Cold of Flu in the past 2 weeks, No New Medical Problems, No Changes in Medication and No Patient answered all questions The History & Physical has been completed within 30 days and I have reviewed it.: Yes Section B Chief Complaint: trigger finger carpel tunnel Allergies: Allergies Allergy/AdvReac Type Severity Reaction Status Date / Time No Known Allergies Allergy Verified 05/16/21 14:47 seasonal Allergy Intermediate cough Uncoded 04/16/21 12:31 Plan I have reviewed the history and physical and performed a pertinent physical examination on my patient. No changes have occurred unless specified.
[2021-05-28 10:12] VITALS: BP 153/85; PULSE 83; RESP 18; TEMP 36.1; O2SAT 99
[2021-05-28 10:17] VITALS: BP 149/76; PULSE 78; RESP 18; O2SAT 99
[2021-05-28 10:22] VITALS: BP 149/71; PULSE 68; RESP 18; O2SAT 96
[2021-05-28 10:27] VITALS: BP 133/61; PULSE 67; RESP 16; O2SAT 95
[2021-05-28 10:42] VITALS: BP 128/57; PULSE 65; RESP 16; TEMP 36.1; O2SAT 95
== END 2021-05-28 11:14 | disposition home or self-care (01) ==
PROVIDERS: Visit Provider Orthopaedic Surgery
PROC: (CPT 64721; principal; 2021-05-28 09:00)
DX: G56.01 Carpal tunnel syndrome, right upper limb (principal); M65.331 Trigger finger, right middle finger; E11.9 Type 2 diabetes mellitus without complications; I10 Essential (primary) hypertension
CPT/HCPCS: 64721; 26055; 82947; J1100; J2250; J2405; J3010

== ENCOUNTER 2021-05-31 08:12 | Outpatient (REF) | payer OTHER, SELFPAY ==
--- NOTE | ~2021-05-31 | FL_ITS ---
EXAMINATION: UPPER GI AIR-CONTRAST SERIES CLINICAL INFORMATION: Morbid obesity due to excess calories . COMPARISON: None TECHNIQUE: Routine double contrast upper GI exam was performed. FINDINGS: Following oral administration of thick barium and effervescent granules there is normal propagation bolus from the oral cavity through the pharynx, esophagus into stomach without any evidence of obstruction, narrowing or stricture. On placing patient supine and prone there is a small sliding hiatal hernia with minimal gastroesophageal reflux. Otherwise rest of the course, caliber and peristalsis of the stomach is normal. There is mild flocculation of barium suggestive of hyperacidity. FLUOROSCOPY TIME: 1.5 minutes DOSE AREA PRODUCT: 39.395 uGy-m2 (microgray-meter squared) FL/FL upper GI series IMPRESSION: Moderate gastroesophageal reflux with small sliding hiatal hernia. Suspect gastric hyperacidity .
== END 2021-05-31 08:13 | disposition home or self-care (01) ==
LOC: HO.XRAY 08:12
PROVIDERS: Visit Provider Physician Assistant Surgical
DX: E66.01 Morbid (severe) obesity due to excess calories (principal); E50.9 Vitamin A deficiency, unspecified
CPT/HCPCS: 74240

== ENCOUNTER → 2021-06-06 12:16 | Outpatient (BNVA) | payer MEDICARE, SELFPAY | PROVIDERS: PCP Internal Medicine; Visit Provider Hospitalist | DX: G47.33 Obstructive sleep apnea (adult) (pediatric) (principal); J45.40 Moderate persistent asthma, uncomplicated | CPT/HCPCS: 99202 ==

== ENCOUNTER → 2021-06-11 11:03 | Outpatient (BNVA) | payer MEDICARE, SELFPAY | PROVIDERS: Visit Provider Orthopaedic Surgery | DX: R20.0 Anesthesia of skin (principal) | CPT/HCPCS: 99212 ==

== ENCOUNTER → 2021-06-14 09:10 | Outpatient (BNVA) | payer MEDICARE, SELFPAY | PROVIDERS: PCP Internal Medicine; Visit Provider Nurse Practitioner Gerontology | DX: E11.65 Type 2 diabetes mellitus with hyperglycemia (principal); E66.01 Morbid (severe) obesity due to excess calories; E78.5 Hyperlipidemia, unspecified; I10 Essential (primary) hypertension; Z68.41 Body mass index [BMI] 40.0-44.9, adult | CPT/HCPCS: 82947; 83036; 99212 ==

== ENCOUNTER → 2021-07-01 13:07 | Outpatient (REF) | payer MEDICARE, SELFPAY | LOC: HO.SL 13:07 | PROVIDERS: Visit Provider Hospitalist | DX: G47.33 Obstructive sleep apnea (adult) (pediatric) (principal); E66.01 Morbid (severe) obesity due to excess calories; Z68.41 Body mass index [BMI] 40.0-44.9, adult | CPT/HCPCS: 95806; 99212 ==

== ENCOUNTER → 2021-08-05 12:47 | Outpatient (BNVA) | payer MEDICARE, SELFPAY | PROVIDERS: PCP Internal Medicine; Visit Provider Hospitalist | DX: G47.33 Obstructive sleep apnea (adult) (pediatric) (principal); J45.40 Moderate persistent asthma, uncomplicated | CPT/HCPCS: 99212 ==

== ENCOUNTER → 2021-09-13 14:15 | Outpatient (BNVA) | payer MEDICARE, SELFPAY | PROVIDERS: PCP Internal Medicine; Referring Provider Physician Assistant; Visit Provider Physician Assistant Surgical | DX: E66.9 Obesity, unspecified (principal); Z68.39 Body mass index [BMI] 39.0-39.9, adult; Z98.84 Bariatric surgery status | CPT/HCPCS: 99212 ==

== ENCOUNTER → 2021-09-25 13:52 | Outpatient (BNVA) | payer MEDICARE, SELFPAY | PROVIDERS: PCP Internal Medicine; Visit Provider Orthopaedic Surgery | DX: M79.641 Pain in right hand (principal); M65.331 Trigger finger, right middle finger; M65.321 Trigger finger, right index finger; G56.01 Carpal tunnel syndrome, right upper limb | CPT/HCPCS: 99212 ==

== ENCOUNTER → 2021-10-09 13:58 | Outpatient (BNVA) | payer MEDICARE, SELFPAY | PROVIDERS: PCP Internal Medicine; Visit Provider Nurse Practitioner Gerontology | DX: E11.65 Type 2 diabetes mellitus with hyperglycemia (principal); E78.5 Hyperlipidemia, unspecified; E66.01 Morbid (severe) obesity due to excess calories; I10 Essential (primary) hypertension; Z68.39 Body mass index [BMI] 39.0-39.9, adult | CPT/HCPCS: 82947; 83036; 99212 ==

== ENCOUNTER 2021-10-15 12:36 | Emergency (ER) | payer MEDICARE, SELFPAY ==
--- NOTE | ~2021-10-15 | CT_ITS ---
EXAMINATION: CT HEAD WITHOUT CONTRAST CLINICAL INFORMATION: Dizziness COMPARISON: None TECHNIQUE: Contiguous axial imaging was performed from the skull base to vertex without intravenous administration of contrast. This CT examination was performed using dose optimization techniques as appropriate, variously including the following: *Automated exposure control *Adjustment of mA and/or kV according to patient size (this includes techniques or standardized protocols for targeted exams where dose is matched to indication/reason for exam; i.e. extremities or head) *Use of iterative reconstruction technique DLP: 6 a 1 mGy-cm FINDINGS: There is no evidence of acute intracranial hemorrhage or territorial infarction. No abnormal mass effect or midline shift is seen. [place] to white matter differentiation is well preserved. No extra-axial fluid collections are identified. The ventricles are normal in size. There is no abnormal attenuation within the brain parenchyma. The osseous structures and soft tissues are normal. There are polyps or cysts seen in both maxillary sinuses. The mastoid air cells and visualized portions of the paranasal sinuses are otherwise clear. CT/CT head/brain wo con IMPRESSION: No acute intracranial findings. Polyps or cysts in the maxillary sinuses.
--- NOTE | ~2021-10-15 | XR_ITS ---
EXAMINATION: XR CHEST CLINICAL INFORMATION: Right-sided pain COMPARISON: Previous chest x-ray August 2019 TECHNIQUE: Frontal view of the chest was obtained. FINDINGS: The cardiac and mediastinal contours are normal. The lungs are clear. There is no pleural effusion or pneumothorax. There are degenerative changes of the spine. XR/XR chest 1V IMPRESSION: No evidence for acute disease in the chest.
[2021-10-15 12:49] VITALS: BP 147/99; BP 149/90; PULSE 68; PULSE 70; RESP 18; TEMP 36.9; O2SAT 97; O2SAT 98; BMI 40.0
--- NOTE | 2021-10-15 12:55 | ECG_ITS ---
Test Reason : dizziness Blood Pressure : / mmHG Vent. Rate : 067 BPM Atrial Rate : 067 BPM P-R Int : 174 ms QRS Dur : 070 ms QT Int : 376 ms P-R-T Axes : 059 003 027 degrees QTc Int : 397 ms Normal sinus rhythm Normal ECG When compared with ECG of 15-JAN-2021 07:42, No significant change was found Referred By: Generic ED Physician Electronically Signed By:RHONDA LEYVA MD
--- NOTE | 2021-10-15 12:59 | ED.DIZZY ---
HPI - Dizziness General Chief Complaint: General Medical Stated Complaint: DIZZY Time Seen by Provider: 10/15/21 12:58 Source: patient and interpreter and translator Mode of arrival: EMS Limitations: no limitations History of Present Illness HPI Narrative: sent by [facility] for R sided rib pain, dizziness for 1.5 days, PACs seen on EKG MD elicited complaint: dizziness Onset (ago): day(s) (1.5 days ago) Timing: gradual onset Severity: mild Description: lightheadedness Context: other (can happen at any time) History of similar symptoms: No Exacerbating factors: nothing Relieving factors: nothing Associated symptoms: other (runny nose, right sided rib pain) Related Data Home Medications Medication Instructions Recorded Confirmed fluticasone propionate 220 2 puff INHALATION BID 07/23/20 09/13/21 mcg/actuation HFA aerosol inhaler melatonin 5 mg tablet 5 - 10 mg PO BEDTIME 07/23/20 09/13/21 multivitamin 1 tab PO DAILY 07/23/20 09/13/21 venlafaxine 37.5 mg 37.5 mg PO BEDTIME 07/23/20 09/13/21 capsule,extended release 24 hr blood-glucose meter (FreeStyle 10/09/21 10/09/21 Lite Meter) Previous Rx's Medication Instructions Recorded cholecalciferol (vitamin D3) 50 50 mcg PO DAILY 30 Days #30 cap 10/25/20 mcg (2,000 unit) capsule meloxicam 15 mg tablet 15 mg PO DAILY 30 Days #30 tab 12/31/20 diclofenac sodium 1 % topical gel 2 g TOPICAL BID PRN #100 g 01/08/21 lancets 33 gauge #300 ea 01/21/21 OneTouch Ultra Blue Test Strip #300 ea NS 01/22/21 (blood sugar diagnostic) blood-glucose meter (OneTouch #1 ea 01/22/21 Ultra2 Meter) lancets (OneTouch UltraSoft #300 ea 01/22/21 Lancets) vitamin A 2,400 mcg capsule 4,800 mcg PO DAILY #30 cap 02/13/21 nitrofurantoin 100 mg PO Q12H 5 Days #10 cap 04/21/21 monohydrate/macrocrystals 100 mg capsule (Macrobid) docusate sodium 100 mg capsule 100 mg PO .DAILY WITH FOOD 30 Days 05/09/21 (Colace) #30 cap pantoprazole 40 mg tablet,delayed 40 mg PO DAILY 30 Days #30 tab 05/09/21 release simethicone 180 mg capsule 180 mg PO QID 30 Days #120 cap 05/09/21 hydrocodone 5 mg-acetaminophen 325 1 tab PO Q4-6H PRN #5 tab 05/28/21 mg tablet blood sugar diagnostic (FreeStyle #100 ea 06/14/21 Lite Strips) blood-glucose meter (FreeStyle #1 ea 06/14/21 [place] Lite) empagliflozin 25 mg-metformin ER 1 tab PO DAILY 90 Days #90 ea 06/14/21 1,000 mg tablet,extended release 24hr (Synjardy XR) lancets 28 gauge (FreeStyle #100 ea 06/14/21 Lancets) atorvastatin 80 mg tablet 80 mg PO BEDTIME 90 Days #90 tab 08/15/21 dulaglutide 0.75 mg/0.5 mL 0.75 mg (0.5 mL) SUBCUT QWEEK #2 ml 10/09/21 subcutaneous pen injector ([employer]) meclizine 25 mg tablet 25 mg PO TID PRN #30 tab 10/15/21 Allergies Allergy/AdvReac Type Severity Reaction Status Date / Time No Known Allergies Allergy Verified 10/09/21 14:51 seasonal Allergy Intermediate cough Uncoded 10/09/21 14:51 Review of Systems Review of Systems: Constitutional : No Weight loss, No Fever, No Chills, No Fatigue, No Malaise ENT/Mouth : No sore throat, pos Rhinorrhea Eyes: No Eye Pain, No Swelling, No Redness Cardiovascular : No Chest Pain, No SOB, No Dyspnea on Exertion, No Orthopnea, No Edema, No Palpitations, pos R rib pain Respiratory : No Cough, No Sputum, No Wheezing Gastrointestinal : No Nausea, No Vomiting, No Diarrhea, No Constipation, No abdominal Pain, No Hematochezia, No Melena Genitourinary : No Dysuria, No Urinary Frequency, No Hematuria, Musculoskeletal : No joint pain, No Myalgias, No Joint Swelling Skin : No Skin Lesions, No rash Neuro : No Weakness, No Numbness, pos Dizziness, No Headache Psych : No Anxiety/Panic, No Depression Heme/Lymph: No Bruising, No Bleeding,No Lymphadenopathy Endocrine : No Polyuria, No Polydipsia All other systems reviewed and are negative FOR[facility]LY [facility] Past Medical History Attestation statement: The following information was validated with the patient. Medical History Asthma Diabetes type 2, uncontrolled Diabetic polyneuropathy associated with type 2 diabetes mellitus Dyslipidemia Hypertension Morbid obesity Obesity Obesity due to excess calories REY (obstructive sleep apnea) Vitamin D deficiency Surgical History H/O foot surgery History of carpal tunnel release History of dilatation and curettage History of esophagogastroduodenoscopy (EGD) History of eyelid surgery History of sleeve gastrectomy Hx of colonoscopy Hx of tubal ligation S/P trigger finger release Family History Family History Father Type II diabetes mellitus Obesity Mother HTN (hypertension) Brother Cancer Social History Social History Household Members: Spouse Alcohol intake: former Patient Tobacco Use Status: Former Tobacco user Tobacco use type: Cigarette Advance Directives: No Advance Directives Information Provided: No service: No Current occupational status: unemployed Current occupation: rt handed Physical Exam Vital Signs: Vital Signs: Last Vital Signs Temp 98.1 F 10/15/21 15:38 Pulse 70 10/15/21 15:38 Resp 15 10/15/21 15:38 BP 149/83 H 10/15/21 15:38 Pulse Ox 98 10/15/21 15:38 BMI result Body Mass Index 40.0 Appearance: Alert. Oriented X3. No acute distress. Eyes: Pupils equal, round and reactive to light. No nystagmus ENT: Pharynx normal. normal TMs Neck: Normal inspection. Neck supple. CVS: Normal heart rate and rhythm. Pulses normal. Respiratory: No respiratory distress. Breath sounds normal. Abdomen: Soft and non-tender. Skin: Skin warm and dry. Normal skin color. Normal skin turgor. Extremities: No lower extremity edema. No calf ttp Neuro: Oriented X 3. No motor deficit. No sensory deficit. no drift Course Course Course Narrative: ddimer, trop, EKG negative, CXR negative signed out pending UA if negative stable for DC patient feels better stable for DC MDM - Dizziness MDM Narrative Medical decision making narrative: 71 yo female with hx of asthma, obesity, GERD, HTN, HLD, DM here with c/o feeling dizzy with R posterior rib pain sent by [facility] due to PACs - she has no overt chest pain/sob, no focal neuro deficits at this time will obtain troponin, EKG, ddimer, CT head for mass. PO antivert. Dispo per results and findings. Lab Data Result diagrams: 10/15/21 14:27 10/15/21 14:27 Labs: Lab Results 10/15/21 10/15/21 10/15/21 Range/Units 14:27 14:27 14:27 WBC 7.8 (4.8-10.8) X10*3/uL RBC 5.14 (4.20-5.50) X10*6/uL Hgb 13.6 (12.0-16.0) g/dl Hct 43.0 (37.0-47.0) % MCV 83.7 (80.0-98.0) fL MCH 26.5 L (27.0-33.0) pg MCHC 31.6 (31.0-35.0) g/dl RDW 14.9 (11.0-16.0) % Plt Count 213 (160-400) X10*3/uL MPV 11.4 (9.4-12.3) fL Immature Gran % (Auto) 0.4 (0.0-0.4) % Neut % (Auto) 58.6 (45-73) % Lymph % (Auto) 31.6 (20-40) % Cole % (Auto) 7.7 (2-11) % Eos % (Auto) 1.4 (0-4) % Baso % (Auto) 0.3 (0-2) % Lymph # (Auto) 2.5 (1.2-4.9) X10*3/uL Cole # (Auto) 0.6 (0.1-1.2) X10*3/uL Eos # (Auto) 0.1 (0.0-0.4) X10*3/uL Baso # (Auto) 0.0 (0.0-0.2) X10*3/uL Abs Immat Gran (auto) 0.03 (0.00-0.03) X10*3/uL Absolute Neuts (auto) 4.6 (2.0-8.3) x10*3/uL Absolute Nucleated RBC 0.000 (0.0-0.012) X10*3/uL Nucleated RBC % (auto) 0.0 (0.0-0.2) /100WBC D-Dimer High Sensitivty < 150 NG/ML Sodium 140 (135-145) mmol/L Potassium 4.5 (3.3-5.1) mmol/L Chloride 105 (96-108) mmol/L Carbon Dioxide 30 H (22-29) mmol/L Anion Gap 10 L (12-20) BUN 14 (9-16) mg/dL Creatinine 0.61 (0.5-1.4) mg/dL Estim Creat Clear Calc 95.9 Estimated GFR > 60 Random Glucose 88 (60-115) mg/dL Calcium 9.6 (8.4-10.2) mg/dL Magnesium 1.9 (1.6-2.6) mg/dL Total Bilirubin 0.4 (0.0-1.0) mg/dL Direct Bilirubin 0.2 (0.0-0.5) mg/dL AST 19 (5-31) U/L ALT 22 (0-31) U/L Alkaline Phosphatase 79 (39-117) U/L Troponin I High Sens (<3.5-17.0) ng/L Total Protein 7.2 (6.5-8.0) g/dL Albumin 4.0 (3.5-5.0) g/dL COVID-19 ([facility]) (Negative) COVID-19 Clin Com 10/15/21 10/15/21 Range/Units 14:27 14:27 WBC (4.8-10.8) X10*3/uL RBC (4.20-5.50) X10*6/uL Hgb (12.0-16.0) g/dl Hct (37.0-47.0) % MCV (80.0-98.0) fL MCH (27.0-33.0) pg MCHC (31.0-35.0) g/dl RDW (11.0-16.0) % Plt Count (160-400) X10*3/uL MPV (9.4-12.3) fL Immature Gran % (Auto) (0.0-0.4) % Neut % (Auto) (45-73) % Lymph % (Auto) (20-40) % Cole % (Auto) (2-11) % Eos % (Auto) (0-4) % Baso % (Auto) (0-2) % Lymph # (Auto) (1.2-4.9) X10*3/uL Cole # (Auto) (0.1-1.2) X10*3/uL Eos # (Auto) (0.0-0.4) X10*3/uL Baso # (Auto) (0.0-0.2) X10*3/uL Abs Immat Gran (auto) (0.00-0.03) X10*3/uL Absolute Neuts (auto) (2.0-8.3) x10*3/uL Absolute Nucleated RBC (0.0-0.012) X10*3/uL Nucleated RBC % (auto) (0.0-0.2) /100WBC D-Dimer High Sensitivty NG/ML Sodium (135-145) mmol/L Potassium (3.3-5.1) mmol/L Chloride (96-108) mmol/L Carbon Dioxide (22-29) mmol/L Anion Gap (12-20) BUN (9-16) mg/dL Creatinine (0.5-1.4) mg/dL Estim Creat Clear Calc Estimated GFR Random Glucose (60-115) mg/dL Calcium (8.4-10.2) mg/dL Magnesium (1.6-2.6) mg/dL Total Bilirubin (0.0-1.0) mg/dL Direct Bilirubin (0.0-0.5) mg/dL AST (5-31) U/L ALT (0-31) U/L Alkaline Phosphatase (39-117) U/L Troponin I High Sens < 3.5 (<3.5-17.0) ng/L Total Protein (6.5-8.0) g/dL Albumin (3.5-5.0) g/dL COVID-19 ([facility]) Negative (Negative) COVID-19 Clin Com See Note ECG Data Attestation: I personally reviewed and interpreted this ECG as follows: ECG interpretation date: 10/15/21 ECG interpretation time: 13:50 Interpretation: Rate: 67 Rhythm: NSR [place]: normal Normal P waves. Normal MARY ELLEN. Normal QRS complex. ST T wave : no GREG, normal qTC: normal prior studies: no acute ischemia The study has been interpreted contemporaneously by me. . Discharge Plan Discharge Clinical Impression: Dizziness Patient Disposition: Home, Self-Care Instructions: Dizziness (ED) Additional Instructions: return to ED for any worsening symptoms or concerns Prescriptions: New meclizine 25 mg tablet 25 mg PO TID PRN (Reason: dizziness) Qty: 30 0RF No Action cholecalciferol (vitamin D3) 50 mcg (2,000 unit) capsule 50 mcg PO DAILY 30 Days Qty: 30 6RF Label Comments: Patient is nonadherent, does not remember medications unless prompted, can not recall last time taken for most meds diclofenac sodium 1 % gel 2 g topical BID PRN (Reason: pain) Qty: 100 2RF vitamin A 2,400 mcg capsule 4,800 mcg PO DAILY Qty: 30 0RF atorvastatin 80 mg tablet 80 mg PO BEDTIME 90 Days Qty: 90 1RF Rx Instructions: dose increased to 80 mg nitrofurantoin monohyd/m-cryst [Macrobid] 100 mg capsule 100 mg PO Q12H 5 Days Qty: 10 0RF Rx Instructions: must administer with a meal/food hydrocodone-acetaminophen 5-325 mg tablet 1 tab PO Q4-6H PRN (Reason: pain) Qty: 5 0RF fluticasone propionate 220 mcg/actuation HFA aerosol inhaler 2 puff inhalation BID 0RF Rx Instructions: Patient is nonadherent, does not remember medications unless prompted, can not recall last time taken for most meds melatonin 5 mg tablet 5 - 10 mg PO BEDTIME 0RF Rx Instructions: Patient is nonadherent, does not remember medications unless prompted, can not recall last time taken for most meds venlafaxine 37.5 mg capsule,extended release 24hr 37.5 mg PO BEDTIME 0RF Rx Instructions: Patient is nonadherent, does not remember medications unless prompted, can not recall last time taken for most meds multivitamin Tablet 1 tab PO DAILY 0RF Label Comments: Patient is nonadherent, does not remember medications unless prompted, can not recall last time taken for most meds pantoprazole 40 mg tablet,delayed release (DR/EC) 40 mg PO DAILY 30 Days Qty: 30 6RF Label Comments: Patient is nonadherent, does not remember medications unless prompted, can not recall last time taken for most meds docusate sodium [Colace] 100 mg capsule 100 mg PO .DAILY WITH FOOD 30 Days Qty: 30 6RF simethicone 180 mg capsule 180 mg PO QID 30 Days Qty: 120 6RF Rx Instructions: after meals meloxicam 15 mg tablet 15 mg PO DAILY 30 Days Qty: 30 0RF Rx Instructions: Patient is nonadherent, does not remember medications unless prompted, can not recall last time taken for most meds (DME) lancets 33 gauge misc See Rx Instructions ea Not Applicable BID Qty: 300 2RF Rx Instructions: 3 times a day (DME) blood-glucose meter [OneTouch Ultra2 Meter] Kit See Rx Instructions .ROUTE .MEDSUPPLY Qty: 1 0RF Rx Instructions: 3 times a day (DME) OneTouch Ultra Blue Test Strip Strip See Rx Instructions .ROUTE .MEDSUPPLY Qty: 300 1RF Rx Instructions: 3 times a day (DME) lancets [OneTouch UltraSoft Lancets] Misc See Rx Instructions .ROUTE .MEDSUPPLY Qty: 300 1RF Rx Instructions: 3 timnes a day (DME) blood-glucose meter [FreeStyle [place] Lite] Kit See Rx Instructions .ROUTE .MEDSUPPLY Qty: 1 0RF Rx Instructions: 3 x/day (DME) FreeStyle Lite Strips Strip See Rx Instructions .ROUTE .MEDSUPPLY Qty: 100 11RF Rx Instructions: As directed three times a day (DME) lancets [FreeStyle Lancets] 28 gauge misc See Rx Instructions .ROUTE .MEDSUPPLY Qty: 100 11RF Rx Instructions: Three times a day Synjardy XR 25-1,000 mg tablet, IR - ER, biphasic 24hr 1 tab PO DAILY 90 Days Qty: 90 3RF Label Comments: Patient is nonadherent, does not remember medications unless prompted, can not recall last time taken for most meds (DME) blood-glucose meter [FreeStyle Lite Meter] Kit See Rx Instructions .Route 0RF Rx Instructions: As directed Trulicity 0.75 mg/0.5 mL pen injector 0.75 mg subcut QWEEK Qty: 2 6RF Referrals: Radha Bran MD [Primary Care Provider] - 2 days (if not better) Print Language: Greenlandic
[2021-10-15] MEDS: Meclizine HCl 25 MG TABLET PO (13:32)
[2021-10-15 14:34] LABS: MANUAL DIFF FLAG NO
[2021-10-15 14:35] LABS: Basophils Percent Auto 0.3 % (0-2); Eosinophils Absolute Auto 0.1 X10*3/uL (0.0-0.4); Eosinophils Percent Auto 1.4 % (0-4); Hemoglobin 13.6 g/dl (12.0-16.0); Imm Gran Abs Auto 0.03 X10*3/uL (0.00-0.03); Imm Gran Pct Auto 0.4 % (0.0-0.4); Lymphocytes Absolute Auto 2.5 X10*3/uL (1.2-4.9); Lymphocytes Percent Auto 31.6 % (20-40); Mean Corpuscular HGB Conc 31.6 g/dl (31.0-35.0); Mean Corpuscular Hemoglobin 26.5 pg (27.0-33.0); Mean Corpuscular Volume 83.7 fL (80.0-98.0); Mean Platelet Volume 11.4 fL (9.4-12.3); Monocytes Absolute Auto 0.6 X10*3/uL (0.1-1.2); Monocytes Percent Auto 7.7 % (2-11); Neutrophils Absolute Auto 4.6 x10*3/uL (2.0-8.3); Neutrophils Percent Auto 58.6 % (45-73); Platelet Count 213 X10*3/uL (160-400); Red Blood Count 5.14 X10*6/uL (4.20-5.50); Red Cell Distribution Width 14.9 % (11.0-16.0); White Blood Count 7.8 X10*3/uL (4.8-10.8)
[2021-10-15 14:45] LABS: D Dimer High Sensitivity < 150 NG/ML
[2021-10-15 14:53] LABS: Alanine Aminotransferase 22 U/L (0-31); Alkaline Phosphatase 79 U/L (39-117); Anion Gap 10 (12-20); Aspartate Amino Transferase 19 U/L (5-31); Bilirubin Direct 0.2 mg/dL (0.0-0.5); Bilirubin Total 0.4 mg/dL (0.0-1.0); Blood Urea Nitrogen 14 mg/dL (9-16); Calcium 9.6 mg/dL (8.4-10.2); Carbon Dioxide 30 mmol/L (22-29); Chloride 105 mmol/L (96-108); Creatinine Clr Calc Pharmacy 95.9; Estimated Glomerular Filt Rate > 60; Glucose Random 88 mg/dL (60-115); Magnesium 1.9 mg/dL (1.6-2.6); Potassium 4.5 mmol/L (3.3-5.1); Sodium 140 mmol/L (135-145); Total Protein 7.2 g/dL (6.5-8.0)
[2021-10-15 14:54] LABS: Troponin-I High Sensitivity < 3.5 ng/L (<3.5-17.0)
[2021-10-15 14:57] LABS: COVID-19 Test Negative (Negative)
[2021-10-15 15:38] VITALS: BP 149/83; PULSE 70; RESP 15; TEMP 36.7; O2SAT 98
[2021-10-15 17:02] LABS: Appearance Urine CLEAR; Color Urine YELLOW; Glucose Urine UA >=1000 MG/DL (NEG); Leukocyte Esterase Urine NEG (NEG); Nitrite Urine NEG (NEG); PH 6.5 (5.0-8.0); Specific Gravity - Urine 1.015 (1.005-1.025); Urine Blood NEG (NEG); Urine Ketones NEG (NEG); Urine Protein NEG (NEG-TRACE)
--- NOTE | 2021-10-15 17:11 | PHA.MEDREC ---
Pharmacy Consult ? Medication Reconciliation Pharmacy has completed the medication reconciliation. Verfied med list from [facility] with tucker velasquez has not had meds filled since last year july and pt is not currently on many of those meds, new med list verified with [facility]
[2021-10-15 17:29] LABS: Oval Fat Bodies Urine NOTED; RBC Urine 0-2 /HPF (0); Squamous Epithelial Cell Urine 1+ /LPF
== END 2021-10-15 17:42 | disposition home or self-care (01) ==
PROVIDERS: Emergency Provider Emergency Medicine; PCP Internal Medicine
DX: R42 Dizziness and giddiness (principal); Z20.822 Contact with and (suspected) exposure to COVID-19; E11.9 Type 2 diabetes mellitus without complications; I10 Essential (primary) hypertension; E78.5 Hyperlipidemia, unspecified; Z79.02 Long term (current) use of antithrombotics/antiplatelets
CPT/HCPCS: 70450; 71045; 80048; 80076; 81001; 81003; 83735; 84484; 85025; 85379; 87086; 87635; 93005; 99284

== ENCOUNTER 2021-10-23 07:49 | Outpatient (REF) | payer MEDICARE, SELFPAY ==
[2021-10-23 09:02] LABS: Creatinine Urine 86.01 mg/dL
[2021-10-23 09:10] LABS: Alanine Aminotransferase 21 U/L (0-31); Albumin Level 3.9 g/dL (3.5-5.0); Alkaline Phosphatase 75 U/L (39-117); Anion Gap 13 (12-20); Aspartate Amino Transferase 16 U/L (5-31); Bilirubin Total 0.4 mg/dL (0.0-1.0); Blood Urea Nitrogen 14 mg/dL (9-16); Calcium 9.8 mg/dL (8.4-10.2); Carbon Dioxide 26 mmol/L (22-29); Chloride 105 mmol/L (96-108); Cholesterol 221 mg/dL; Estimated Glomerular Filt Rate > 60; Glucose Fasting 105 mg/dL (60-99); HDL Cholesterol 50 mg/dL; LDL Cholesterol Calculated 136 mg/dl; Potassium 4.4 mmol/L (3.3-5.1); Sodium 140 mmol/L (135-145); Triglycerides 175 mg/dL
[2021-10-23 09:22] LABS: Free T4 (Free Thyroxine) 0.81 ng/dL (0.71-1.85); Thyroid Stimulating Hormone 3.22 uIU/mL (0.32-4.0); Vitamin D 25-OH Total 19.7 ng/mL (>30)
[2021-10-28 15:31] LABS: Vitamin A 35 mcg/dL (38-98)
== END 2021-10-23 07:50 | disposition home or self-care (01) ==
LOC: HO.LAB 07:49
PROVIDERS: Physician Assistant Surgical; PCP Internal Medicine; Visit Provider Nurse Practitioner Gerontology
DX: E66.01 Morbid (severe) obesity due to excess calories (principal); E11.65 Type 2 diabetes mellitus with hyperglycemia; E55.9 Vitamin D deficiency, unspecified; E50.9 Vitamin A deficiency, unspecified
CPT/HCPCS: 36415; 80053; 80061; 82043; 82306; 84439; 84443; 84590

== ENCOUNTER → 2021-11-07 14:55 | Outpatient (BNVA) | payer OTHER, SELFPAY | PROVIDERS: PCP Internal Medicine; Visit Provider Registered Nurse Diabetes Educator | DX: E11.65 Type 2 diabetes mellitus with hyperglycemia (principal); Z71.3 Dietary counseling and surveillance; Z71.89 Other specified counseling | CPT/HCPCS: 99211 ==

== ENCOUNTER 2021-11-26 12:50 | Outpatient (REF) | payer OTHER, SELFPAY ==
--- NOTE | ~2021-11-26 | MM_ITS ---
EXAMINATION: MM SCREENING DIGITAL BREAST TOMOSYNTHESIS, BILATERAL CLINICAL INFORMATION: Screening. Asymptomatic. The lifetime risk of breast cancer based on the Tyrer-Cuzick Model is 3%. COMPARISON: Mammography: 05/25/2019, 05/18/2018, 02/29/2016 TECHNIQUE: Digital breast tomosynthesis is performed in both the craniocaudal and mediolateral oblique views along with computer-aided detection (CAD). Synthesized 2D images are generated from the tomosynthesis. FINDINGS: There are scattered areas of fibroglandular density (ACR BI-RADS breast composition Category b). There are no significant masses, abnormal calcifications, or other abnormalities. Parenchymal pattern is similar to prior studies. There are 2 intramammary nodes mid central 3:00 left breast and an intramammary node mid central 9:00 right breast. The skin contours are smooth. No significant changes. MM/MM tomosynthesis screening BI IMPRESSION: No mammographic evidence of malignancy. ASSESSMENT: BI-RADS 2: Benign RECOMMENDATION: Routine annual mammography screening. This patient's information was entered into a reminder system with a target due date for their next mammogram.
--- NOTE | ~2021-11-26 | MM_ITS ---
EXAMINATION: BONE DENSITOMETRY CLINICAL INDICATION: Menopause. COMPARISON: Previous BD dated 04/21/2019 and baseline BD dated 04/08/2011. TECHNIQUE: Using a MatrixVision DXA System (software version: 13.1) manufactured by [employer], dual-energy x-ray absorptiometry was performed of the lumbar spine and left hip. The images are of good technical quality. Summary results are attached. FINDINGS: AP SPINE L1-L4: Current: BMD 1.082 g/cm2, Z-score 0.0, T-score -0.8, normal, 0.1% increase from previous, 2.5% increase from baseline (<5% change is not significant). Prior: BMD 1.081 g/cm2. Baseline: BMD 1.056 g/cm2. LEFT FEMUR, NECK: Current: BMD 0.846 g/cm2, Z-score -0.3, T-score -1.4, osteopenia. Prior: BMD 0.966 g/cm2. Baseline: BMD 0.907 g/cm2. LEFT FEMUR, TOTAL: Current: BMD 1.018 g/cm2, Z-score 0.9, T-score 0.1, normal, 8.0% decrease from previous, 9.4% decrease from baseline (<5% change is not significant). Prior: BMD 1.106 g/cm2. Baseline: BMD 1.124 g/cm2. IDENTIFIED RISK FACTORS: Menopause, height loss, recurrent falls, secondary osteoporosis. HISTORY OF FRACTURE: None listed. MEDICATIONS: Calcium, vitamin D. MM/XR DEXA axial skeleton IMPRESSION: 1. DIAGNOSIS: Osteopenia based on the lowest T-score value of -1.4 in the femoral neck applying World Health Organization criteria. 2. 10-YEAR FRACTURE RISK PREDICTION, FRAX: Major osteoporotic fracture (clinical spine, forearm, hip or shoulder) 4.8%. Hip fracture 0.6%. 3. Treatment Recommendations: NOF guidelines recommend consideration for treatment in postmenopausal women and men age 50 and older presenting with the following: -A hip or vertebral (clinical or morphometric) fracture. -T-score less than or equal to -2.5 at the femoral neck or spine after appropriate evaluation to exclude secondary causes. -Low bone mass at the hip or spine and a 10-year fracture probability by FRAX of greater than or equal to 3% for hip fracture or greater than or equal to 20% for major osteoporotic fracture based on the [place] adapted WHO algorithm. 4. Other Recommendations: All treatment decisions require clinical judgment and consideration of individual patient factors, including patient preferences, comorbidities, previous drug use, risk factors not captured in the FRAX model (e.g. frailty, falls, vitamin D deficiency, increased bone turnover, interval significant decline in bone density) and possible under or overestimation of fracture risk by FRAX. Additional medical evaluation for secondary cause of low bone mineral density may be appropriate. FUTURE SCAN RECOMMENDATION: People with diagnosed cases of osteoporosis or at high risk for fracture should have regular bone mineral density tests. For patients eligible for Medicare, routine testing is allowed once every 2 years. The testing frequency can be increased to one year for patients who have rapidly progressing disease, those who are receiving or discontinuing medical therapy to restore bone mass, or have additional risk factors.
== END 2021-11-26 12:51 | disposition home or self-care (01) ==
LOC: HO.MAMMO 12:50
PROVIDERS: PCP Internal Medicine; Visit Provider Internal Medicine
DX: Z12.31 Encounter for screening mammogram for malignant neoplasm of breast (principal); Z78.0 Asymptomatic menopausal state; R29.6 Repeated falls
CPT/HCPCS: 77063; 77067; 77080

== ENCOUNTER → 2021-12-12 14:10 | Outpatient (BNVA) | payer OTHER, SELFPAY | PROVIDERS: PCP Internal Medicine; Visit Provider Registered Nurse Diabetes Educator | DX: E11.65 Type 2 diabetes mellitus with hyperglycemia (principal) | CPT/HCPCS: 99211 ==

== ENCOUNTER 2022-02-12 13:22 | Outpatient (REF) | payer OTHER, SELFPAY ==
[2022-02-12 14:54] LABS: MANUAL DIFF FLAG NO
[2022-02-12 15:07] LABS: Basophils Percent Auto 0.1 % (0-2); Eosinophils Absolute Auto 0.1 X10*3/uL (0.0-0.4); Eosinophils Percent Auto 1.7 % (0-4); Hematocrit 38.9 % (37.0-47.0); Hemoglobin 12.5 g/dl (12.0-16.0); Imm Gran Abs Auto 0.03 X10*3/uL (0.00-0.03); Imm Gran Pct Auto 0.4 % (0.0-0.4); Lymphocytes Absolute Auto 2.2 X10*3/uL (1.2-4.9); Lymphocytes Percent Auto 28.3 % (20-40); Mean Corpuscular HGB Conc 32.1 g/dl (31.0-35.0); Mean Corpuscular Hemoglobin 27.2 pg (27.0-33.0); Mean Corpuscular Volume 84.6 fL (80.0-98.0); Mean Platelet Volume 11.5 fL (9.4-12.3); Monocytes Absolute Auto 0.6 X10*3/uL (0.1-1.2); Neutrophils Absolute Auto 4.7 x10*3/uL (2.0-8.3); Neutrophils Percent Auto 61.5 % (45-73); Platelet Count 218 X10*3/uL (160-400); Red Cell Distribution Width 14.6 % (11.0-16.0); White Blood Count 7.7 X10*3/uL (4.8-10.8)
[2022-02-12 15:46] LABS: Estimated Average Glucose 154 mg/dL
[2022-02-12 15:47] LABS: Anion Gap 9 (12-20); Blood Urea Nitrogen 23 mg/dL (9-16); C Reactive Protein 0.64 mg/dL (< or = 0.50); Calcium 9.4 mg/dL (8.4-10.2); Carbon Dioxide 29 mmol/L (22-29); Chloride 107 mmol/L (96-108); Cholesterol 231 mg/dL; Estimated Glomerular Filt Rate > 60; Glucose Random 161 mg/dL (60-115); HDL Cholesterol 50 mg/dL; Iron 41 mcg/dL (30-160); LDL Cholesterol Calculated 131 mg/dl; Percent Iron Saturation 11 % (15-50); Potassium 4.3 mmol/L (3.3-5.1); Sodium 141 mmol/L (135-145); Total Iron Binding Capacity 380 mcg/dL (228-428); Triglycerides 253 mg/dL; Unsaturated Iron Binding 339 ug/dL
[2022-02-12 16:12] LABS: Ferritin 7 ng/mL (10-250); TSH reflex Free T4 1.38 uIU/mL (0.32-4.0); Vitamin D 25-OH Total 21.4 ng/mL (>30)
[2022-02-12 16:21] LABS: Folate 12.2 ng/mL (> or = 4.0); Vitamin B12 418 pg/mL (200-900)
[2022-02-12 16:43] LABS: Insulin 38 uU/mL (2-29)
[2022-02-13 15:36] LABS: Calcium (PTHI) 9.6 mg/dL (8.6-10.4); PTHI 42 pg/mL (16-77)
[2022-02-16 11:12] LABS: Vitamin B1 19 nmol/L (8-30)
[2022-02-18 13:27] LABS: Zinc 55 mcg/dL (60-130)
[2022-02-18 19:26] LABS: Vitamin A 33 mcg/dL (38-98)
== END 2022-02-12 13:23 | disposition home or self-care (01) ==
LOC: HO.LAB 13:22
PROVIDERS: PCP Internal Medicine; Visit Provider Physician Assistant Surgical
DX: E66.01 Morbid (severe) obesity due to excess calories (principal); Z68.41 Body mass index [BMI] 40.0-44.9, adult; Z71.3 Dietary counseling and surveillance
CPT/HCPCS: 36415; 80048; 80061; 82306; 82607; 82728; 82746; 83036; 83525; 83540; 83970; 84425; 84443; 84590; 84630; 85025; 86140; 99212

== ENCOUNTER 2022-03-06 11:50 | Outpatient (REF) | payer OTHER, SELFPAY ==
--- NOTE | ~2022-03-06 | XR_ITS ---
EXAMINATION: XR CHEST CLINICAL INFORMATION: Shortness of breath. COMPARISON: None TECHNIQUE: 2 views of the chest were obtained. FINDINGS: The lungs are well-expanded and clear. The heart size and pulmonary vascularity is normal. There is moderate spondylosis dorsal spine. No lytic process seen. XR/XR chest 2V IMPRESSION: No acute cardiopulmonary process seen. There is moderate spondylosis dorsal spine.
== END 2022-03-06 11:51 | disposition home or self-care (01) ==
LOC: HO.XRAY 11:50
PROVIDERS: Absent Provider Internal Medicine; PCP Internal Medicine; Visit Provider Emergency Medicine
DX: J22 Unspecified acute lower respiratory infection (principal); R05.1 Acute cough; R06.02 Shortness of breath
CPT/HCPCS: 71046

== ENCOUNTER 2022-03-06 13:30 | Outpatient (RCR) | payer OTHER, SELFPAY ==
--- NOTE | 2022-02-19 08:41 | MHC.OT.EP ---
[address] [phone] Occupational Therapy Plan of Care Date of Evaluation: 02/18/22 Diagnosis: PAIN IN RIGHT HAND Assessment: 71 Y/O F PRESENTS 9 MONTHS S/P R CTR AND A1 PULLY RELEASE OF R MF. SHE REPORTS ONGOING PAIN AND NUMBNESS/ TINGLING THROUGH R HAND, WELL SOME RADIATING PAIN, NUMBNESS AND TINGLING THROUGH PROXIMAL RUE. SHE EXPRESSES SEVERE DIFFICULTIES WITH DAILY ACTIVITIES AND RELIES ON SPOUSE FOR MOST IADLs AND SOME ADLs; LIVING A SEDENTARY LIFESTYLE. PAIN IS REPORTED AT 8-9/10 AT REST AND WITH ACTIVITY. NO TRIGGERING OF DIGITS OBSERVED DURING OT EVAL. SHE APPEARS LIMITED IN STRENGTH THROUGHOUT HER B/L UEs. ONGOING SKILLED OT IS WARRANTED FOR PAIN MANAGEMENT, Pt EDUCATION, STRENGTHENING, JOINT PROTECTION, COORDINATION AND INCREASING INDEPENDENCE WITH MEANINGFUL AND PURPOSEFUL ACTIVITIES. Frequency and Duration: The patient will be seen 2X/WEEK FOR 5 WEEKS Short Term Goals: IND HEP IND USE OF HEAT/ICE IND JT PROTECTION IND ADL CLOSURE BOARD AND INCORPORATE USE OF RIGHT HAND INTO ADLs WITHOUT DIFFICULTIES Order Expediter Goals: REPORT MILD NUMBNESS/TINGLING THROUGH RUE INCREASE UE STRENGTH BY 0.5 GRADE FOR IMPROVED TOLERANCE IN ADLs AND LIGHT IADLs REPORT <5/10 PAIN WITH AROM AND LIGHT ADLs TOLERATE A VARIETY OF SMOOTH, ROUGH, VIBRATION/ SENSATIONS TO R HAND FOR 7-8 MINS Treatment Plan: Therapeutic Exercise Therapeutic Activity Home Exercise Program Splinting Neuro Re-ed Patient Education Desensitization/Sensory Re-ed Edema Control ADL Training Ultrasound NMES Iontophoresis Paraffin Fluidotherapy MHP Cold Packs Joint Mobilization Soft Tissue Mobilization Kinesiotaping Other (see comments) Electronically Signed By: ANNELIESE HERNANDEZ OTR/L Please Sign and return to therapist. Thank you once again for your referral.
--- NOTE | 2022-03-13 13:55 | MHC.OT.DC ---
[address] [phone] F: [phone] Occupational Therapy Discharge Note Provider: Dr Garcia Diagnosis: Right hand pain Date of Surgery: 05/28/21 Date of Evaluation: 02/18/22 Date of Discharge: 03/13/22 Treatments to Date: 4 No Shows to Date: 4 Discharge Status: Visit Non-compliance Discharge Summary: Halley was referred to OT w/ right hand pain. She has hx of right trigger finger release and carpal tunnel release last year but continued to have pain and numbness in RUE. Since initial assessment, she has had good overall range of the digits and UE, reporting minimal pain and numbness in hand and has progressed to gross upper body strengthening. We have been encouraging an overall increase in activity and participation in day to day activities. She has no-showed her last four appointments and we will be discharging OT services at this time. Electronically Signed By: RAMEZ Pelayo/Braxton CHT Reviewed/agree with student documentation: N/A Therapist: Please Sign and return to therapist, thank you for your referral.
== END 2022-03-13 13:58 | disposition home or self-care (01) ==
LOC: HO.OT 13:30
PROVIDERS: PCP Internal Medicine; Visit Provider Orthopaedic Surgery
DX: M79.641 Pain in right hand (principal)
CPT/HCPCS: 97110; 97112; 97140; 97166

== ENCOUNTER 2022-03-17 18:23 | Emergency (ER) | payer OTHER, SELFPAY ==
--- NOTE | ~2022-03-17 | XR_ITS ---
EXAMINATION: XR CHEST CLINICAL INFORMATION: Shortness of breath. COMPARISON: 03/06/2022 chest radiograph. TECHNIQUE: Frontal view of the chest was obtained. FINDINGS: No significant abnormality is noted involving the heart, lungs, mediastinum, bony thorax or soft tissues. XR/XR chest 1V IMPRESSION: No acute cardiopulmonary process.
--- NOTE | 2022-03-17 18:32 | ED.CHESTPAIN ---
HPI - Chest Pain General Chief Complaint: Chest Pain Stated Complaint: CHEST PAIN Time Seen by Provider: 03/17/22 18:30 Source: patient Mode of arrival: EMS Limitations: no limitations History of Present Illness HPI narrative: Patient is 72 years old history of diabetes, neuropathy, hypertension, dyslipidemia, status post gastric sleeve surgery, GERD comes here for shortness of breath for last 3 weeks with left-sided chest pain. Apparently patient PCP called her go to the hospital after visiting nurse reported to him. Patient does have occasional cough without any expectoration no leg swelling no history of coronary artery disease no fever or chills chest pain is wake mostly pain is in upper chest does increase with deep breathing does not have any significant pain after arrival feels chest tightness Related Data Home Medications Medication Instructions Recorded Confirmed blood-glucose meter (FreeStyle 10/09/21 02/12/22 Lite Meter kit) albuterol sulfate 90 mcg/actuation 2 puff PO QID PRN Shortness Of 10/15/21 02/12/22 aerosol inhaler Breath empagliflozin 25 mg-metformin ER 1 tab PO DAILY 10/15/21 02/12/22 1,000 mg tablet,extended release 24hr (Synjardy XR) escitalopram oxalate 20 mg tablet 1 tab PO DAILY 10/15/21 02/12/22 fluticasone propionate 50 2 spray intranasal DAILY 10/15/21 02/12/22 mcg/actuation nasal spray,suspension Previous Rx's Medication Instructions Recorded lancets 33 gauge #300 ea 01/21/21 OneTouch Ultra Blue Test Strip #300 ea 01/22/21 (blood sugar diagnostic) blood-glucose meter (OneTouch #1 ea 01/22/21 Ultra2 Meter kit) lancets (OneTouch UltraSoft #300 ea 01/22/21 Lancets) blood sugar diagnostic (FreeStyle #100 ea 06/14/21 Lite Strips) blood-glucose meter (FreeStyle #1 ea 06/14/21 [place] Lite kit) lancets 28 gauge (FreeStyle #100 ea 06/14/21 Lancets) meclizine 25 mg tablet 25 mg PO TID PRN dizziness #30 tabs 10/15/21 rosuvastatin 40 mg tablet 40 mg PO DAILY #90 tabs 10/28/21 calcitriol 0.25 mcg capsule 0.25 mcg PO DAILY #30 caps 02/14/22 dulaglutide 0.75 mg/0.5 mL 0.75 mg (0.5 mL) subcut QWEEK #2 mL 02/17/22 subcutaneous pen injector (Trulicity) levalbuterol tartrate 45 2 inh inhalation Q4-6H PRN 03/17/22 mcg/actuation aerosol inhaler shortness of breath #15 grams (Xopenex HFA) Allergies Allergy/AdvReac Type Severity Reaction Status Date / Time No Known Allergies Allergy Verified 02/12/22 14:01 seasonal Allergy Intermediate cough Uncoded 10/09/21 14:51 Review of Systems Review of Systems: Yes all other systems are reviewed and are negative [facility] Past Medical History Medical History Asthma Diabetes type 2, uncontrolled Diabetic polyneuropathy associated with type 2 diabetes mellitus Dyslipidemia Hypertension Morbid obesity Obesity Obesity due to excess calories REY (obstructive sleep apnea) Vitamin D deficiency Surgical History H/O foot surgery History of carpal tunnel release History of dilatation and curettage History of esophagogastroduodenoscopy (EGD) History of eyelid surgery History of sleeve gastrectomy Hx of colonoscopy Hx of tubal ligation S/P trigger finger release Family History Family History Father Type II diabetes mellitus Obesity Mother HTN (hypertension) Brother Cancer Social History Social History Household Members: Spouse Alcohol intake: former Patient Tobacco Use Status: Former Tobacco user Tobacco use type: Cigarette Advance Directives: No Advance Directives Information Provided: No service: No Current occupational status: unemployed Current occupation: rt handed Physical Exam Vital Signs: Vital Signs: Last Vital Signs Temp 98.2 F 03/17/22 18:42 Pulse 97 03/17/22 18:42 Resp 22 H 03/17/22 18:42 BP 153/69 H 03/17/22 18:42 Pulse Ox 97 03/17/22 18:42 O2 Del Method 03/17/22 18:42 BMI result Body Mass Index 41.1 Appearance: Alert. Oriented X3. No acute distress. Eyes: PERRLA, No Nystagmus ENT: Pharynx normal. Oral Mucosa moist Neck: Normal inspection. Neck supple. CVS: Normal heart rate and rhythm. Pulses normal. Respiratory: No respiratory distress. Equal air entry bilateral, no wheezing/rales/rhonchi Abdomen: Soft and nontender. Bowel sounds are present, no mass palpable, no CVA tenderness Skin: Skin warm and dry. Normal skin color. Normal skin turgor. Extremities: No lower extremity edema. No calf tenderness Neuro: Oriented X 3. No motor deficit. MDM - Chest Pain MDM Narrative Medical decision making narrative: 20:30Patient has nonspecific pain chronic asthma sleep apnea using APAP at home followed by glue mounter operator unable to tolerate albuterol for palpitation off Breo. Patient has a follow-up plan to see glue mounter operator. Workup at this time showed normal EKG is normal normal troponin negative D-dimer and normal BNP lungs are clear will discharge patient home advised to work on her breathing continues APAP machine the night also patient gained about 25 lb in last 3 years advised to work on losing weight Lab Data Attestation: I reviewed the patient's lab results. Result diagrams: 03/17/22 19:17 03/17/22 19:18 Labs: Lab Results 03/17/22 03/17/22 03/17/22 Range/Units 19:17 19:17 19:17 WBC 7.6 (4.8-10.8) X10*3/uL RBC 4.48 (4.20-5.50) X10*6/uL Hgb 12.0 (12.0-16.0) g/dl Hct 36.9 L (37.0-47.0) % MCV 82.4 (80.0-98.0) fL MCH 26.8 L (27.0-33.0) pg MCHC 32.5 (31.0-35.0) g/dl RDW 13.8 (11.0-16.0) % Plt Count 212 (160-400) X10*3/uL MPV 11.7 (9.4-12.3) fL Immature Gran % (Auto) 0.1 (0.0-0.4) % Neut % (Auto) 56.7 (45-73) % Lymph % (Auto) 32.2 (20-40) % Traverse % (Auto) 8.3 (2-11) % Eos % (Auto) 2.4 (0-4) % Baso % (Auto) 0.3 (0-2) % Lymph # (Auto) 2.4 (1.2-4.9) X10*3/uL Traverse # (Auto) 0.6 (0.1-1.2) X10*3/uL Eos # (Auto) 0.2 (0.0-0.4) X10*3/uL Baso # (Auto) 0.0 (0.0-0.2) X10*3/uL Abs Immat Gran (auto) 0.01 (0.00-0.03) X10*3/uL Absolute Neuts (auto) 4.3 (2.0-8.3) x10*3/uL Absolute Nucleated RBC 0.000 (0.0-0.012) X10*3/uL Nucleated RBC % (auto) 0.0 (0.0-0.2) /100WBC D-Dimer High Sensitivty < 150 NG/ML Sodium (135-145) mmol/L Potassium (3.3-5.1) mmol/L Chloride (96-108) mmol/L Carbon Dioxide (22-29) mmol/L Anion Gap (12-20) BUN (9-16) mg/dL Creatinine (0.5-1.4) mg/dL Estim Creat Clear Calc Estimated GFR Random Glucose (60-115) mg/dL Calcium (8.4-10.2) mg/dL Total Bilirubin (0.0-1.0) mg/dL AST (5-31) U/L ALT (0-31) U/L Alkaline Phosphatase (39-117) U/L Troponin I High Sens < 3.5 (<3.5-17.0) ng/L B-Natriuretic Peptide (<100) pg/mL Total Protein (6.5-8.0) g/dL Albumin (3.5-5.0) g/dL COVID-19 ([place]) (Negative) COVID-19 Clin Com 03/17/22 03/17/22 03/17/22 Range/Units 19:18 19:18 19:18 WBC (4.8-10.8) X10*3/uL RBC (4.20-5.50) X10*6/uL Hgb (12.0-16.0) g/dl Hct (37.0-47.0) % MCV (80.0-98.0) fL MCH (27.0-33.0) pg MCHC (31.0-35.0) g/dl RDW (11.0-16.0) % Plt Count (160-400) X10*3/uL MPV (9.4-12.3) fL Immature Gran % (Auto) (0.0-0.4) % Neut % (Auto) (45-73) % Lymph % (Auto) (20-40) % Traverse % (Auto) (2-11) % Eos % (Auto) (0-4) % Baso % (Auto) (0-2) % Lymph # (Auto) (1.2-4.9) X10*3/uL Traverse # (Auto) (0.1-1.2) X10*3/uL Eos # (Auto) (0.0-0.4) X10*3/uL Baso # (Auto) (0.0-0.2) X10*3/uL Abs Immat Gran (auto) (0.00-0.03) X10*3/uL Absolute Neuts (auto) (2.0-8.3) x10*3/uL Absolute Nucleated RBC (0.0-0.012) X10*3/uL Nucleated RBC % (auto) (0.0-0.2) /100WBC D-Dimer High Sensitivty NG/ML Sodium 139 (135-145) mmol/L Potassium 4.2 (3.3-5.1) mmol/L Chloride 106 (96-108) mmol/L Carbon Dioxide 29 (22-29) mmol/L Anion Gap 8 L (12-20) BUN 16 (9-16) mg/dL Creatinine 0.64 (0.5-1.4) mg/dL Estim Creat Clear Calc 91.5 Estimated GFR > 60 Random Glucose 128 H (60-115) mg/dL Calcium 8.9 (8.4-10.2) mg/dL Total Bilirubin 0.2 (0.0-1.0) mg/dL AST 16 (5-31) U/L ALT 18 (0-31) U/L Alkaline Phosphatase 75 (39-117) U/L Troponin I High Sens (<3.5-17.0) ng/L B-Natriuretic Peptide 50 (<100) pg/mL Total Protein 6.7 (6.5-8.0) g/dL Albumin 3.8 (3.5-5.0) g/dL COVID-19 ([place]) Negative (Negative) COVID-19 Clin Com See Note ECG Data ECG #1: Attestation: I personally reviewed and interpreted this ECG as follows: Interpretation: Normal sinus rhythm heart rate 66 beats per minute normal interval normal axis no acute ST-T changes no ischemia Discharge Plan Discharge Clinical Impression: Chest pain, REY (obstructive sleep apnea) Patient Disposition: Home, Self-Care Instructions: Chest Pain (ED), Sleep Apnea (DC) Additional Instructions: Continues your sleep apnea machine at home Try to lose some weight Use Xopenex inhaler as prescribed for shortness of breath/wheezing Contin?a m?quina de apnea del erwin?o en casa Trate de perder algo de peso Use el inhalador Xopenex seg?n lo prescrito para la dificultad para respirar/sibilancias Prescriptions: New levalbuterol tartrate [Xopenex HFA] 45 mcg/actuation HFA aerosol inhaler 2 inh inhalation Q4-6H PRN (Reason: shortness of breath) Qty: 15 0RF No Action rosuvastatin 40 mg tablet 40 mg PO DAILY Qty: 90 3RF calcitriol 0.25 mcg capsule 0.25 mcg PO DAILY Qty: 30 2RF Trulicity 0.75 mg/0.5 mL pen injector 0.75 mg subcut QWEEK Qty: 2 5RF meclizine 25 mg tablet 25 mg PO TID PRN (Reason: dizziness) Qty: 30 0RF albuterol sulfate 90 mcg/actuation HFA aerosol inhaler 2 puff PO QID PRN (Reason: Shortness Of Breath) fluticasone propionate 50 mcg/actuation spray,suspension 2 spray intranasal DAILY escitalopram oxalate 20 mg tablet 1 tab PO DAILY Synjardy XR 25-1,000 mg tablet, IR - ER, biphasic 24hr 1 tab PO DAILY (DME) lancets 33 gauge misc See Rx Instructions Not Applicable BID Qty: 300 2RF Rx Instructions: 3 times a day (DME) blood-glucose meter [OneTouch Ultra2 Meter] Kit See Rx Instructions .ROUTE .MEDSUPPLY Qty: 1 0RF Rx Instructions: 3 times a day (DME) OneTouch Ultra Blue Test Strip Strip See Rx Instructions .ROUTE .MEDSUPPLY Qty: 300 1RF Rx Instructions: 3 times a day (DME) lancets [OneTouch UltraSoft Lancets] Misc See Rx Instructions .ROUTE .MEDSUPPLY Qty: 300 1RF Rx Instructions: 3 timnes a day (DME) blood-glucose meter [FreeStyle [place] Lite] Kit See Rx Instructions .ROUTE .MEDSUPPLY Qty: 1 0RF Rx Instructions: 3 x/day (DME) FreeStyle Lite Strips Strip See Rx Instructions .ROUTE .MEDSUPPLY Qty: 100 11RF Rx Instructions: As directed three times a day (DME) lancets [FreeStyle Lancets] 28 gauge misc See Rx Instructions .ROUTE .MEDSUPPLY Qty: 100 11RF Rx Instructions: Three times a day (DME) blood-glucose meter [FreeStyle Lite Meter] Kit See Rx Instructions .Route Rx Instructions: As directed Interventions: ED Discharge Assessment Last Done: 03/17/22 21:23 Discharge Date/Time: 03/17/22 21:32 Print Language: Amharic
[2022-03-17 18:42] VITALS: BP 153/69; BP 166/93; PULSE 78; PULSE 97; RESP 22; TEMP 36.8; O2SAT 97; BMI 41.1
--- NOTE | 2022-03-17 18:55 | ECG_ITS ---
Test Reason : cp Blood Pressure : / mmHG Vent. Rate : 066 BPM Atrial Rate : 066 BPM P-R Int : 180 ms QRS Dur : 070 ms QT Int : 384 ms P-R-T Axes : 047 014 041 degrees QTc Int : 402 ms Normal sinus rhythm Normal ECG When compared with ECG of 15-OCT-2021 12:57, No significant change was found Referred By: Jeff Lee Electronically Signed By:Tushar Mayo
[2022-03-17 19:26] LABS: MANUAL DIFF FLAG NO
[2022-03-17 19:30] LABS: Basophils Percent Auto 0.3 % (0-2); Eosinophils Absolute Auto 0.2 X10*3/uL (0.0-0.4); Eosinophils Percent Auto 2.4 % (0-4); Hematocrit 36.9 % (37.0-47.0); Imm Gran Abs Auto 0.01 X10*3/uL (0.00-0.03); Imm Gran Pct Auto 0.1 % (0.0-0.4); Lymphocytes Absolute Auto 2.4 X10*3/uL (1.2-4.9); Lymphocytes Percent Auto 32.2 % (20-40); Mean Corpuscular HGB Conc 32.5 g/dl (31.0-35.0); Mean Corpuscular Hemoglobin 26.8 pg (27.0-33.0); Mean Corpuscular Volume 82.4 fL (80.0-98.0); Mean Platelet Volume 11.7 fL (9.4-12.3); Monocytes Absolute Auto 0.6 X10*3/uL (0.1-1.2); Monocytes Percent Auto 8.3 % (2-11); Neutrophils Absolute Auto 4.3 x10*3/uL (2.0-8.3); Neutrophils Percent Auto 56.7 % (45-73); Platelet Count 212 X10*3/uL (160-400); Red Blood Count 4.48 X10*6/uL (4.20-5.50); Red Cell Distribution Width 13.8 % (11.0-16.0); White Blood Count 7.6 X10*3/uL (4.8-10.8)
[2022-03-17 19:42] LABS: COVID-19 Test Negative (Negative); IDNOW Serial# 16C4AD1C
[2022-03-17 19:42] LABS: D Dimer High Sensitivity < 150 NG/ML
[2022-03-17 19:47] LABS: Alanine Aminotransferase 18 U/L (0-31); Albumin Level 3.8 g/dL (3.5-5.0); Alkaline Phosphatase 75 U/L (39-117); Anion Gap 8 (12-20); Aspartate Amino Transferase 16 U/L (5-31); Bilirubin Total 0.2 mg/dL (0.0-1.0); Blood Urea Nitrogen 16 mg/dL (9-16); Calcium 8.9 mg/dL (8.4-10.2); Carbon Dioxide 29 mmol/L (22-29); Chloride 106 mmol/L (96-108); Creatinine Clr Calc Pharmacy 91.5; Estimated Glomerular Filt Rate > 60; Glucose Random 128 mg/dL (60-115); Potassium 4.2 mmol/L (3.3-5.1); Sodium 139 mmol/L (135-145); Total Protein 6.7 g/dL (6.5-8.0)
[2022-03-17 19:48] LABS: B Type Natriuretic Peptide 50 pg/mL (<100)
[2022-03-17 19:48] LABS: Troponin-I High Sensitivity < 3.5 ng/L (<3.5-17.0)
== END 2022-03-17 21:32 | disposition home or self-care (01) ==
PROVIDERS: Emergency Provider Internal Medicine; PCP Internal Medicine
DX: R07.89 Other chest pain (principal); G47.33 Obstructive sleep apnea (adult) (pediatric); R06.02 Shortness of breath; Z20.822 Contact with and (suspected) exposure to COVID-19; Z79.899 Other long term (current) drug therapy; Z87.891 Personal history of nicotine dependence
CPT/HCPCS: 36415; 71045; 80053; 83880; 84484; 85025; 85379; 87635; 93005; 99283

== ENCOUNTER 2022-05-23 17:11 | Emergency (ER) | payer MEDICARE, MEDICAID, SELFPAY ==
[2022-05-23 17:43] VITALS: BP 136/82; PULSE 92; RESP 18; TEMP 35.7; O2SAT 100; BMI 41.1
--- NOTE | 2022-05-23 17:46 | ECG_ITS ---
Test Reason : dizziness Blood Pressure : / mmHG Vent. Rate : 088 BPM Atrial Rate : 088 BPM P-R Int : 164 ms QRS Dur : 072 ms QT Int : 360 ms P-R-T Axes : 016 003 029 degrees QTc Int : 435 ms Sinus rhythm with Premature atrial complexes Otherwise normal ECG When compared with ECG of 17-MAR-2022 19:30, Premature atrial complexes are now Present Referred By: Generic ED Physician Electronically Signed By:ALEENA CESAR
[2022-05-23 17:54] LABS: Glucose, Whole Blood 394 mg/dL (60-115)
[2022-05-23 17:54] LABS: MANUAL DIFF FLAG NO
[2022-05-23 17:58] LABS: Venous Blood Gas Refer to POC result
[2022-05-23 17:58] LABS: VBG Base Excess -1.6 mmol/L; VBG HCO3 22 mmol/L (22-26); VBG pCO2 37 mmHg; VBG pH 7.39 (7.32-7.43); VBG pO2 86 mmHg
[2022-05-23 18:02] LABS: Basophils Percent Auto 0.3 % (0-2); Eosinophils Absolute Auto 0.1 X10*3/uL (0.0-0.4); Eosinophils Percent Auto 1.8 % (0-4); Hematocrit 39.5 % (37.0-47.0); Hemoglobin 13.1 g/dl (12.0-16.0); Imm Gran Abs Auto 0.01 X10*3/uL (0.00-0.03); Imm Gran Pct Auto 0.1 % (0.0-0.4); Lymphocytes Absolute Auto 2.1 X10*3/uL (1.2-4.9); Lymphocytes Percent Auto 27.4 % (20-40); Mean Corpuscular HGB Conc 33.2 g/dl (31.0-35.0); Mean Corpuscular Hemoglobin 26.8 pg (27.0-33.0); Mean Corpuscular Volume 80.9 fL (80.0-98.0); Mean Platelet Volume 12.2 fL (9.4-12.3); Monocytes Absolute Auto 0.6 X10*3/uL (0.1-1.2); Monocytes Percent Auto 8.2 % (2-11); Neutrophils Absolute Auto 4.7 x10*3/uL (2.0-8.3); Neutrophils Percent Auto 62.2 % (45-73); Platelet Count 205 X10*3/uL (160-400); Red Blood Count 4.88 X10*6/uL (4.20-5.50); Red Cell Distribution Width 13.3 % (11.0-16.0); White Blood Count 7.6 X10*3/uL (4.8-10.8)
[2022-05-23 18:11] LABS: Acetone, serum QL Negative (Negative)
[2022-05-23 18:18] LABS: Alanine Aminotransferase 23 U/L (0-31); Albumin Level 4.1 g/dL (3.5-5.0); Alkaline Phosphatase 100 U/L (39-117); Anion Gap 15 (12-20); Aspartate Amino Transferase 17 U/L (5-31); Bilirubin Total 0.3 mg/dL (0.0-1.0); Blood Urea Nitrogen 16 mg/dL (9-16); Calcium 9.2 mg/dL (8.4-10.2); Carbon Dioxide 22 mmol/L (22-29); Chloride 103 mmol/L (96-108); Creatinine Clr Calc Pharmacy 64.3; Estimated Glomerular Filt Rate > 60; Glucose Random 445 mg/dL (60-115); Potassium 4.4 mmol/L (3.3-5.1); Sodium 136 mmol/L (135-145); Total Protein 7.3 g/dL (6.5-8.0)
== END 2022-05-23 21:33 | disposition left against medical advice (07) ==
PROVIDERS: Physician Assistant; Emergency Provider Emergency Medicine; PCP Internal Medicine
DX: R35.0 Frequency of micturition (principal); R53.81 Other malaise; R42 Dizziness and giddiness; Z79.899 Other long term (current) drug therapy
CPT/HCPCS: 36415; 80053; 82009; 82803; 82947; 83735; 85025; 93005; 99281; 99283

== ENCOUNTER → 2022-08-28 11:01 | Outpatient (BNVA) | payer OTHER, MEDICAID, SELFPAY | PROVIDERS: PCP Internal Medicine; Visit Provider Internal Medicine Endocrinology, Diabetes & Metabolism | DX: M17.0 Bilateral primary osteoarthritis of knee (principal); E11.65 Type 2 diabetes mellitus with hyperglycemia | CPT/HCPCS: 82947; 83036; 99212 ==

== ENCOUNTER → 2022-09-05 13:26 | Outpatient (BNVA) | payer OTHER, MEDICAID, SELFPAY | PROVIDERS: PCP Internal Medicine; Visit Provider Registered Nurse Diabetes Educator | DX: E11.42 Type 2 diabetes mellitus with diabetic polyneuropathy (principal); Z79.4 Long term (current) use of insulin | CPT/HCPCS: 99211 ==

== ENCOUNTER 2022-09-16 11:52 | Outpatient (REF) | payer OTHER, SELFPAY ==
--- NOTE | ~2022-09-16 | XR_ITS ---
EXAMINATION: XR KNEES, BILATERAL XR KNEES AP STANDING CLINICAL INFORMATION: Osteoarthritis of the knees. COMPARISON: None TECHNIQUE: Four views of each of the knees. FINDINGS: Bones and soft tissues appear unremarkable. No fracture or joint effusion appreciated. Alignment is anatomic. Joint spaces appear well maintained. No abnormal soft tissue calcification appreciated. XR/XR knee RT 3V IMPRESSION: Unremarkable plain film examinations of the knees.
--- NOTE | ~2022-09-16 | XR_ITS ---
EXAMINATION: XR KNEES, BILATERAL XR KNEES AP STANDING CLINICAL INFORMATION: Osteoarthritis of the knees. COMPARISON: None TECHNIQUE: Four views of each of the knees. FINDINGS: Bones and soft tissues appear unremarkable. No fracture or joint effusion appreciated. Alignment is anatomic. Joint spaces appear well maintained. No abnormal soft tissue calcification appreciated. XR/XR knee standing BI IMPRESSION: Unremarkable plain film examinations of the knees.
--- NOTE | ~2022-09-16 | XR_ITS ---
EXAMINATION: XR KNEES, BILATERAL XR KNEES AP STANDING CLINICAL INFORMATION: Osteoarthritis of the knees. COMPARISON: None TECHNIQUE: Four views of each of the knees. FINDINGS: Bones and soft tissues appear unremarkable. No fracture or joint effusion appreciated. Alignment is anatomic. Joint spaces appear well maintained. No abnormal soft tissue calcification appreciated. XR/XR knee LT 3V IMPRESSION: Unremarkable plain film examinations of the knees.
--- NOTE | ~2022-09-16 | XR_ITS ---
EXAMINATION: XR HAND, RIGHT CLINICAL INFORMATION: Right hand pain. COMPARISON: February 03, 2017. TECHNIQUE: PA, lateral, and oblique views of the right hand. FINDINGS: The bones and soft tissues appear unremarkable. No fracture appreciated. Alignment is anatomic. Joint spaces are maintained. No erosions or soft tissue calcifications. XR/XR hand RT min 3V IMPRESSION: Normal plain film examination of the right hand.
== END 2022-09-16 11:53 | disposition home or self-care (01) ==
LOC: HO.HOSX 11:52
PROVIDERS: Absent Provider Student in an Organized Health Care Education/Training Program; PCP Internal Medicine; Visit Provider Orthopaedic Surgery
DX: M79.641 Pain in right hand (principal); M17.0 Bilateral primary osteoarthritis of knee; M65.321 Trigger finger, right index finger; R20.0 Anesthesia of skin; E11.42 Type 2 diabetes mellitus with diabetic polyneuropathy
CPT/HCPCS: 73130; 73562; 73564; 73565; 99212

== ENCOUNTER → 2022-09-19 13:01 | Outpatient (BNVA) | payer OTHER, SELFPAY | PROVIDERS: PCP Internal Medicine; Visit Provider Registered Nurse Diabetes Educator | DX: E11.65 Type 2 diabetes mellitus with hyperglycemia (principal); E11.42 Type 2 diabetes mellitus with diabetic polyneuropathy | CPT/HCPCS: 99211 ==

== ENCOUNTER 2022-11-13 13:37 | Outpatient (AMB) | payer OTHER, SELFPAY ==
[2022-11-13 13:41] VITALS: BP 122/64; PULSE 71; BMI 43.5
--- NOTE | 2022-11-13 13:41 | A.OFFVIS_ITS ---
Intake Vital Signs 11/13/22 13:41 Height 5 ft 2 in Weight 238 lb 5.115 oz BMI 43.5 BP 122/64 Blood Pressure Location Rt brachial Position Sitting Pulse 71 Pulse Source Pulse Oximeter Intake Visit Reasons: f/u Type 2 DM Intake Note: Patient present today to follow up on Type 2 Diabetes Mellitus. Last Diabetic Eye exam: is due for exam. Last Podiatry Visit: does not remember the appt date. Random Glucose: 196 mg/dl HgA1C:7.6% Artificial Flowers Dyer Required: Yes Artificial Flowers Dyer Language: Pyroglazer Name: Paul [id number] Information Interpreted: non-clinical & clinical Accompanied by: Self / Same As Patient Allergies seasonal Allergy (Intermediate, Uncoded 09/16/22 10:39) cough Medication List - Last Reconciled 11/13/22 by Pedro Mohamud MD albuterol sulfate 90 mcg/actuation 2 puffs PO QID PRN blood sugar diagnostic (FreeStyle Lite Strips) As directed three times a day blood-glucose meter (OneTouch Ultra2 Meter kit) 3 times a day blood-glucose meter (FreeStyle [place] Lite kit) 3 x/day blood-glucose meter (FreeStyle Lite Meter kit) As directed calcitriol 0.25 mcg PO DAILY calcium carbonate-vitamin D3 600 mg-10 mcg (400 unit) 1 tab PO Q12H diclofenac sodium 1% 4 grams topical QID dulaglutide (Trulicity) 1.5 mg subcut QWEEK empagliflozin-metformin 25-1,000 mg ER (Synjardy XR) 1 tab PO DAILY escitalopram oxalate 1 tab PO DAILY fluticasone propionate 50 mcg/actuation 2 sprays intranasal DAILY fluticasone propionate 220 mcg/actuation (Flovent HFA) 2 puffs inhalation BID gabapentin 100 mg PO insulin glargine 26 units (0.26 mL) subcut BID insulin lispro (Humalog KwikPen (U-100) Insulin) 8 units (0.08 mL) subcut TID insulin lispro (Humalog U-100 Insulin) 6 units (0.06 mL) subcut TID lancets 3 times a day lancets (OneTouch UltraSoft Lancets) 3 timnes a day lancets (FreeStyle Lancets) Three times a day levalbuterol tartrate 45 mcg/actuation (Xopenex HFA) 2 inhalations inhalation Q4-6H PRN meclizine 25 mg PO TID PRN omeprazole 40 mg PO DAILY OneTouch Ultra Blue Test Strip (blood sugar diagnostic) 3 times a day NS pen needle, diabetic (BD Ultra-Fine [place]ora Pen Needle) As directed injects 4 X/day rosuvastatin 40 mg PO DAILY simethicone 180 mg PO TID HPI HPI Comments History of Present Illness Details Patient is 72-year-old female with DM type 2 diagnosed 1993 who presents for management of diabetes. Past medical history:Dm2, HTN, HLD, gastric sleeve 02/15/19 Micro and macrovascular complications: retinopathy, nephropathy, neuropathy, Diabetes medications: Synjardy XR 25/1,000not taking because can't tolerate nausea . trulicity 1.5 mg Qwkly Intolerant of regular metformin due to d iarrhea Lantus 26 units Humalog 8 units Ac Blood glucose monitoring: In the past 2 weeks, checking once in morning average blood glucose 109 range 87-148 , 1 reading per day. All blood glucose taken fasting a.m.. 100% in range Symptoms reported: denies numbness, tingling, cramping in lower extremities Hypoglycemia: denies Hyperglycemia: + urinary frequency, + nocturia, denies polydypsia Exercise: has not been walking. 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 Ophthalmology evaluation: needs to schedule . Reports anti-VGEF therapy. 10/13/20 10/22/20 01/23/21 09:00 Unknown 11:16 Creatinine Estimated GFR Hemoglobin A1c % 6.7 Triglycerides Cholesterol LDL Cholesterol Di rect HDL Cholesterol TSH 2.63 Microalb/Creat Rat io 18.8 02/09/21 02/09/21 07:30 07:30 Creatinine 0.66 Estimated GFR > 60 Hemoglobin A1c % Triglycerides 154 Cholesterol 177 LDL Cholesterol Di rect 101 H HDL Cholesterol 52 TSH Microalb/Creat Rat io PFSH Medical History Asthma Diabetes type 2, uncontrolled Diabetic polyneuropathy associated with type 2 diabetes mellitus Dyslipidemia Hypertension Morbid obesity Obesity Obesity due to excess calories REY (obstructive sleep apnea) Vitamin D deficiency Surgical History H/O foot surgery History of carpal tunnel release History of dilatation and curettage History of esophagogastroduodenoscopy (EGD) History of eyelid surgery History of sleeve gastrectomy Hx of colonoscopy Hx of tubal ligation S/P trigger finger release Family History Father Type II diabetes mellitus Obesity Mother HTN (hypertension) Brother Cancer Social History Household Members: Spouse Alcohol intake: former Patient Tobacco Use Status: Former Tobacco user Tobacco use type: Cigarette service: No Current occupational status: unemployed Current occupation: rt handed Physical Exam Vital Signs: Last Vital Signs Pulse 71 11/13/22 13:41 BP 122/64 11/13/22 13:41 BMI result Body Mass Index 43.5 Absence of Cushingoid features. Absence of acromegalic features. Neck exam reve als nl size thyroid about 15 gms. No thyroid nodules palpable. No carotid bruits present. Lungs CTA. Heart S1 S2, Reg R/R. No M/R/ G. Skin exam reveals absence of vitiligo or acanthosis nigricans. Abdominal exam reveals Soft NT/ND with NA BS. No organomegaly present. Neck Other: . Extrem Other: Visual exam of foot performed. No ulcerations or open lesions. No onchomycosis, no callouses.Pulses 2 + distally Sensation intact to monofilament exam. Vibratory sensation sensed is Decreased with 128 Hz tuning fork Results Reviewed Results Reviewed: 11/13/22 13:53 Glucose, Whole Blood Routine Laboratory Last Values Glucose (Clinic) 196 mg/dL (60-115) H 11/13/22 13:53 Assessment & Plan Assessment & Plan (1) Diabetes type 2, uncontrolled: Code(s): E11.65 - Type 2 diabetes mellitus with hyperglycemia Qualifiers: Glycemic state: with hyperglycemia Qualified Code(s): E11.65 - Type 2 diabetes mellitus with hyperglycemia Plan: This is 72-year-old female with a history of type 2 diabetes being treated with Trulicity with improving but fair glycemic control and known microvascular complications namely retinopathy, neuropathy and nephropathy. She claims to be intolerant to metformin or metformin /Jardiance combination The plan is to talk to the patient about placing the sensor which she has at home will bring in. Once we have more data points, we could adjust her insulin. Lastly, I told her to be consistent with rosuvastatin and will recheck lipid profile in 2 months. Orders: Orders Lipid Panel Today E11.65 - Type 2 diabetes mellitus with hyperglycemia AMB Hemoglobin A1c Today E11.65 - Type 2 diabetes mellitus with hyperglycemia Coding Level of Care Code Est Pt Level 4 (26213) Diagnoses Diabetes type 2, uncontrolled E11.65 Glycemic state: with hyperglycemia
[2022-11-13 13:59] LABS: Glucose, Whole Blood 196 mg/dL (60-115)
== END 2022-11-13 15:01 | disposition home or self-care (01) ==
LOC: HO.ENCR 13:37
PROVIDERS: PCP Internal Medicine; Visit Provider Internal Medicine Endocrinology, Diabetes & Metabolism
DX: E11.65 Type 2 diabetes mellitus with hyperglycemia (principal)
CPT/HCPCS: 99214

== ENCOUNTER → 2022-11-13 13:37 | Outpatient (BNVA) | payer OTHER, SELFPAY | PROVIDERS: PCP Internal Medicine; Visit Provider Internal Medicine Endocrinology, Diabetes & Metabolism | DX: E11.65 Type 2 diabetes mellitus with hyperglycemia (principal); E11.319 Type 2 diabetes mellitus with unspecified diabetic retinopathy without macular edema; E11.21 Type 2 diabetes mellitus with diabetic nephropathy; E11.40 Type 2 diabetes mellitus with diabetic neuropathy, unspecified; Z79.4 Long term (current) use of insulin | CPT/HCPCS: 82947; 99212 ==

== ENCOUNTER → 2022-11-14 11:41 | Outpatient (BNVA) | payer OTHER, SELFPAY | PROVIDERS: PCP Internal Medicine; Referring Provider Internal Medicine; Visit Provider Physician Assistant Surgical | DX: E66.01 Morbid (severe) obesity due to excess calories (principal); Z90.3 Acquired absence of stomach [part of]; Z68.42 Body mass index [BMI] 45.0-49.9, adult | CPT/HCPCS: 99212 ==

== ENCOUNTER 2022-11-19 08:25 | Outpatient (REF) | payer OTHER, SELFPAY ==
[2022-11-19 09:52] LABS: Cholesterol 218 mg/dL; HDL Cholesterol 50 mg/dL; LDL Cholesterol Calculated 144 mg/dl; Triglycerides 122 mg/dL
== END 2022-11-19 08:26 | disposition home or self-care (01) ==
LOC: HO.LAB 08:25
PROVIDERS: PCP Internal Medicine; Visit Provider Internal Medicine Endocrinology, Diabetes & Metabolism
DX: E11.65 Type 2 diabetes mellitus with hyperglycemia (principal)
CPT/HCPCS: 36415; 80061

== ENCOUNTER 2022-12-04 18:16 | Inpatient (IN) | payer OTHER, SELFPAY ==
--- NOTE | ~2022-12-04 | CT_ITS ---
EXAMINATION: CT CHEST WITHOUT CONTRAST CT LEFT HUMERUS CLINICAL INFORMATION: Fall with pain COMPARISON: None available. TECHNIQUE: Multidetector volumetric CT imaging of the chest was done. Axial MIP volume rendering provided. Sagittal and coronal reformatted images were obtained. Subsequently, CT was performed through the left humerus. Sagittal and coronal reformatted images were also obtained. This CT examination was performed using dose optimization techniques as appropriate, variously including the following: *Automated exposure control *Adjustment of mA and/or kV according to patient size (this includes techniques or standardized protocols for targeted exams where dose is matched to indication/reason for exam; i.e. extremities or head) *Use of iterative reconstruction technique DLP: 106 mGy-cm FINDINGS: LUNGS: The lungs are clear with no evidence of inflammation or nodules. MEDIASTINUM: The mediastinum is normal. CORONARY ARTERY CALCIFICATION: Mild PLEURA: There is no pleural effusion. No pleural mass or thickening. AXILLA: No lymphadenopathy. UPPER ABDOMEN: Status post gastric sleeve. A 5.3 cm splenic cyst is present. OSSEOUS STRUCTURES: There is a comminuted fracture of the left humeral neck/head. There is avulsion and ral displacement of the greater tubercle. No glenohumeral dislocation is seen. No scapular fracture is seen in the glenoid is intact. No AC joint separation. No clavicular or rib fractures are seen. CT/CT chest wo IV con IMPRESSION: Comminuted fracture of left humeral neck/head. Fleischner guidelines were followed.
--- NOTE | ~2022-12-04 | XR_ITS ---
EXAMINATION: XR tibia fibula LT 2V, XR ankle LT 2V CLINICAL INFORMATION: Reason for Exam deformity COMPARISON: Knee radiographs 09/16/2022 TECHNIQUE: Two views of the tibia and fibula and 3 views of the ankle FINDINGS: Overlying splinting material obscures evaluation of fine bony detail. There is an obliquely oriented, displaced fracture of the distal fibular diaphysis. No widening of the medial clear space. Ankle mortise is intact. Lucent lesion in the calcaneus, possibly an intraosseous lipoma, which can be confirmed with a CT or MR. Acute displaced comminuted obliquely oriented fracture of the mid tibial diaphysis with extension of comminution into the lateral tibial plateau appears depressed with lateral displacement of the distal fracture fragment by approximately 1 cm. Degenerative changes of the foot and ankle with tibiotalar spurring, plantar calcaneal spurring and Achilles tendon enthesopathy. Diffuse soft tissue swelling. Large suprapatellar joint effusion. No tibiotalar joint effusion. XR/XR ankle LT 2V IMPRESSION: Overlying splinting material obscures evaluation of fine bony detail. There is an obliquely oriented, displaced fracture of the distal fibular diaphysis. No widening of the medial clear space. Acute displaced comminuted obliquely oriented fracture of the mid tibial diaphysis with extension of comminution into the lateral tibial plateau appears depressed with lateral displacement of the distal fracture fragment by approximately 1 cm. Lucent lesion in the calcaneus, possibly an intraosseous lipoma, which can be confirmed with a CT or MR. Diffuse soft tissue swelling. Large suprapatellar joint effusion.
--- NOTE | ~2022-12-04 | XR_ITS ---
EXAMINATION: XR SHOULDER, LEFT CLINICAL INFORMATION: Pain COMPARISON: CT performed earlier same date TECHNIQUE: AP external rotation, Grashey, scapular Y, and axillary views of the left shoulder. FINDINGS: Comminuted fractures left humeral head/components involving the surgical neck, anatomic neck, greater and lesser tuberosities. The greater tuberosity fracture fragment is displaced up to 1.2 cm. No dislocation. Mild inferior subluxation of the humeral head with respect to the glenoid due to presumptive hemarthrosis. Scapula, clavicle and acromioclavicular joint intact. XR/XR shoulder LT min 2V IMPRESSION: * Comminuted left humeral head/neck fracture, stable in alignment compared to the prior CT * Mild inferior subluxation of the humeral head with respect to the glenoid due to presumptive hemarthrosis.
--- NOTE | ~2022-12-04 | CT_ITS ---
EXAMINATION: CT HEAD WITHOUT CONTRAST CT CERVICAL SPINE WITHOUT CONTRAST CLINICAL INFORMATION: Fall. COMPARISON: CT of the head 10/15/2021 TECHNIQUE: Imaging was performed from the skull base to vertex without intravenous administration of contrast. In addition, helical noncontrast CT imaging was acquired through the cervical spine and source images were reviewed along with axial reconstructions and sagittal and coronal MPRs. [This CT examination was performed using dose optimization techniques as appropriate, variously including the following: *Automated exposure control *Adjustment of mA and/or kV according to patient size (this includes techniques or standardized protocols for targeted exams where dose is matched to indication/reason for exam; i.e. extremities or head) *Use of iterative reconstruction technique] DLP: 9.74+6.87+825.12+682.84 mGy-cm FINDINGS: HEAD: No intracranial mass, hemorrhage, or midline shift is visualized. The ventricles and sulci are proportional. No extra-axial collections are identified. The paranasal sinuses and mastoid air cells are well aerated. CERVICAL SPINE: There is no evidence of acute cervical spine fracture. Vertebral bodies remain normal in height. Cervical vertebrae have normal alignment. There is multilevel degenerative spondylosis of the cervical spine with disc height narrowing and endplate spurs and facet joint arthrosis. There are large anterior spurs at the endplates of C2 to C6. No pre- or paravertebral soft tissue abnormality is identified. Limited assessment of the lung apices is unremarkable. CT/CT head/brain wo IV con IMPRESSION: 1. No acute intracranial pathology. 2. No CT evidence of acute cervical spine fracture or traumatic subluxation
--- NOTE | ~2022-12-04 | CT_ITS ---
EXAMINATION: CT CHEST WITHOUT CONTRAST CT LEFT HUMERUS CLINICAL INFORMATION: Fall with pain COMPARISON: None available. TECHNIQUE: Multidetector volumetric CT imaging of the chest was done. Axial MIP volume rendering provided. Sagittal and coronal reformatted images were obtained. Subsequently, CT was performed through the left humerus. Sagittal and coronal reformatted images were also obtained. This CT examination was performed using dose optimization techniques as appropriate, variously including the following: *Automated exposure control *Adjustment of mA and/or kV according to patient size (this includes techniques or standardized protocols for targeted exams where dose is matched to indication/reason for exam; i.e. extremities or head) *Use of iterative reconstruction technique DLP: 106 mGy-cm FINDINGS: LUNGS: The lungs are clear with no evidence of inflammation or nodules. MEDIASTINUM: The mediastinum is normal. CORONARY ARTERY CALCIFICATION: Mild PLEURA: There is no pleural effusion. No pleural mass or thickening. AXILLA: No lymphadenopathy. UPPER ABDOMEN: Status post gastric sleeve. A 5.3 cm splenic cyst is present. OSSEOUS STRUCTURES: There is a comminuted fracture of the left humeral neck/head. There is avulsion and ral displacement of the greater tubercle. No glenohumeral dislocation is seen. No scapular fracture is seen in the glenoid is intact. No AC joint separation. No clavicular or rib fractures are seen. CT/CT humerus LT wo IV con IMPRESSION: Comminuted fracture of left humeral neck/head. Fleischner guidelines were followed.
--- NOTE | ~2022-12-04 | CT_ITS ---
EXAMINATION: CT KNEE WITHOUT CONTRAST, LEFT CLINICAL INFORMATION: Tibial plateau fracture. COMPARISON: Radiograph dated 09/16/2022 and 12/04/2022. TECHNIQUE: Multidetector volumetric imaging was obtained through the left knee without contrast. Multiplanar reformatted images in coronal and sagittal orientations were submitted. This CT examination was performed using dose optimization techniques as appropriate, variously including the following: *Automated exposure control *Adjustment of mA and/or kV according to patient size (this includes techniques or standardized protocols for targeted exams where dose is matched to indication/reason for exam; i.e. extremities or head) *Use of iterative reconstruction technique DLP: 148 mGy-cm FINDINGS: There is a sagittally oriented split fracture at the lateral tibial plateau extending through the lateral aspect of the proximal tibial diaphysis 10.5 cm distal to the lateral tibial plateau articular surface. There is a 2.8 cm wide band of marked articular cortical depression and comminution at the lateral tibial plateau involving the medial half of the lateral tibial plateau articular surface as well as the lateral tibial spine, spanning the full AP diameter (4.4 cm). Fragments are depressed up to 2 cm in this region. The lateral fragment is displaced laterally by 1 cm. The medial tibial plateau is intact. No appreciable femoral condylar fractures. Patella is intact. There is nonuniform tricompartmental joint space narrowing. Subcortical cystic change, cortical irregularity, and marginal osteophytes are present in the patellofemoral compartment. The oblique transverse fracture of the mid tibial diaphysis is only partially imaged on this study. Imaged portion of the fibula is intact. There is a large lipohemarthrosis. No appreciable Wheeler's cyst. Fat stranding is present in the subcutaneous fat surrounding the knee, most pronounced anteriorly. The calf musculature is edematous, most notably the tibialis anterior and soleus muscles. CT/CT knee LT wo IV con IMPRESSION: 1. Sagittally oriented split fracture of the lateral tibial plateau with marked articular cortical depression and comminution, a Schatzker II. 2. Large lipohemarthrosis. 3. Mild tricompartmental osteoarthritis. 4. Partially imaged oblique transverse fracture of the mid tibial diaphysis.
--- NOTE | ~2022-12-04 | FL_ITS ---
EXAMINATION: XR FLUOROSCOPY WITH IMAGES CLINICAL INFORMATION: Intraoperative fluoroscopy imaging of left tibia. COMPARISON: 12/04/2022 TECHNIQUE: Fluoroscopy Supervised By: Dr. Doc Cortez. Fluoroscopy Time: 2.5 minutes. Cumulative Dose: 13.1 mGy. DAP: 0.227 Gycm2. Images: 7. FINDINGS: Intraoperative fluoroscopy imaging demonstrates plate and side screw fixation of left proximal and mid tibial fractures. There is also noted to be a distal left fibular fracture. FL/FL guidance in OR IMPRESSION: Intraoperative fluoroscopy for orthopedic procedure.
--- NOTE | ~2022-12-04 | CT_ITS ---
EXAMINATION: CT HEAD WITHOUT CONTRAST CT CERVICAL SPINE WITHOUT CONTRAST CLINICAL INFORMATION: Fall. COMPARISON: CT of the head 10/15/2021 TECHNIQUE: Imaging was performed from the skull base to vertex without intravenous administration of contrast. In addition, helical noncontrast CT imaging was acquired through the cervical spine and source images were reviewed along with axial reconstructions and sagittal and coronal MPRs. [This CT examination was performed using dose optimization techniques as appropriate, variously including the following: *Automated exposure control *Adjustment of mA and/or kV according to patient size (this includes techniques or standardized protocols for targeted exams where dose is matched to indication/reason for exam; i.e. extremities or head) *Use of iterative reconstruction technique] DLP: 9.74+6.87+825.12+682.84 mGy-cm FINDINGS: HEAD: No intracranial mass, hemorrhage, or midline shift is visualized. The ventricles and sulci are proportional. No extra-axial collections are identified. The paranasal sinuses and mastoid air cells are well aerated. CERVICAL SPINE: There is no evidence of acute cervical spine fracture. Vertebral bodies remain normal in height. Cervical vertebrae have normal alignment. There is multilevel degenerative spondylosis of the cervical spine with disc height narrowing and endplate spurs and facet joint arthrosis. There are large anterior spurs at the endplates of C2 to C6. No pre- or paravertebral soft tissue abnormality is identified. Limited assessment of the lung apices is unremarkable. CT/CT cervical spine wo IV con IMPRESSION: 1. No acute intracranial pathology. 2. No CT evidence of acute cervical spine fracture or traumatic subluxation
--- NOTE | ~2022-12-04 | XR_ITS ---
EXAMINATION: XR tibia fibula LT 2V, XR ankle LT 2V CLINICAL INFORMATION: Reason for Exam deformity COMPARISON: Knee radiographs 09/16/2022 TECHNIQUE: Two views of the tibia and fibula and 3 views of the ankle FINDINGS: Overlying splinting material obscures evaluation of fine bony detail. There is an obliquely oriented, displaced fracture of the distal fibular diaphysis. No widening of the medial clear space. Ankle mortise is intact. Lucent lesion in the calcaneus, possibly an intraosseous lipoma, which can be confirmed with a CT or MR. Acute displaced comminuted obliquely oriented fracture of the mid tibial diaphysis with extension of comminution into the lateral tibial plateau appears depressed with lateral displacement of the distal fracture fragment by approximately 1 cm. Degenerative changes of the foot and ankle with tibiotalar spurring, plantar calcaneal spurring and Achilles tendon enthesopathy. Diffuse soft tissue swelling. Large suprapatellar joint effusion. No tibiotalar joint effusion. XR/XR tibia fibula LT 2V IMPRESSION: Overlying splinting material obscures evaluation of fine bony detail. There is an obliquely oriented, displaced fracture of the distal fibular diaphysis. No widening of the medial clear space. Acute displaced comminuted obliquely oriented fracture of the mid tibial diaphysis with extension of comminution into the lateral tibial plateau appears depressed with lateral displacement of the distal fracture fragment by approximately 1 cm. Lucent lesion in the calcaneus, possibly an intraosseous lipoma, which can be confirmed with a CT or MR. Diffuse soft tissue swelling. Large suprapatellar joint effusion.
[2022-12-04 18:21] VITALS: BP 122/72; BP 170/71; PULSE 100; PULSE 113; RESP 18; O2SAT 92; O2SAT 99; BMI 44.4
[2022-12-04 18:33] LABS: Glucose, Whole Blood 184 mg/dL (60-115)
--- NOTE | 2022-12-04 18:44 | PC.NURSE ---
Pt a&ox4, airway open and patent, no obvious signs of distress. 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 Pt post fall reports pain on left shoulder rated 10/10 and pain in left middle of leg rated 6/10.
--- NOTE | 2022-12-04 18:49 | ECG_ITS ---
Test Reason : FALL Blood Pressure : / mmHG Vent. Rate : 093 BPM Atrial Rate : 093 BPM P-R Int : 166 ms QRS Dur : 072 ms QT Int : 342 ms P-R-T Axes : 036 014 049 degrees QTc Int : 425 ms Sinus rhythm with Premature atrial complexes Otherwise normal ECG When compared with ECG of 23-MAY-2022 17:59, No significant change was found Referred By: Ashli Barry Electronically Signed By:Tushar Mayo
[2022-12-04 19:13] LABS: MANUAL DIFF FLAG NO
[2022-12-04 19:17] LABS: Basophils Percent Auto 0.2 % (0-2); Eosinophils Absolute Auto 0.1 X10*3/uL (0.0-0.4); Eosinophils Percent Auto 0.6 % (0-4); Hematocrit 40.6 % (37.0-47.0); Hemoglobin 13.5 g/dl (12.0-16.0); Imm Gran Abs Auto 0.04 X10*3/uL (0.00-0.03); Imm Gran Pct Auto 0.3 % (0.0-0.4); Lymphocytes Absolute Auto 1.6 X10*3/uL (1.2-4.9); Lymphocytes Percent Auto 12.9 % (20-40); Mean Corpuscular HGB Conc 33.3 g/dl (31.0-35.0); Mean Corpuscular Hemoglobin 27.6 pg (27.0-33.0); Mean Corpuscular Volume 82.9 fL (80.0-98.0); Mean Platelet Volume 11.4 fL (9.4-12.3); Monocytes Absolute Auto 0.6 X10*3/uL (0.1-1.2); Monocytes Percent Auto 5.1 % (2-11); Neutrophils Absolute Auto 10.1 x10*3/uL (2.0-8.3); Neutrophils Percent Auto 80.9 % (45-73); Platelet Count 195 X10*3/uL (160-400); Red Cell Distribution Width 13.4 % (11.0-16.0); White Blood Count 12.5 X10*3/uL (4.8-10.8)
[2022-12-04 19:32] LABS: Alanine Aminotransferase 26 U/L (0-31); Albumin Level 3.6 g/dL (3.5-5.0); Alkaline Phosphatase 68 U/L (39-117); Anion Gap 11 (12-20); Aspartate Amino Transferase 24 U/L (5-31); Bilirubin Total 0.3 mg/dL (0.0-1.0); Blood Urea Nitrogen 15 mg/dL (9-16); Calcium 9.1 mg/dL (8.4-10.2); Carbon Dioxide 26 mmol/L (22-29); Chloride 106 mmol/L (96-108); Creatinine Clr Calc Pharmacy 90.1; Estimated Glomerular Filt Rate > 60; Glucose Random 223 mg/dL (60-115); Potassium 4.9 mmol/L (3.3-5.1); Sodium 138 mmol/L (135-145); Total Protein 6.7 g/dL (6.5-8.0)
[2022-12-04 19:33] LABS: INTERNATIONAL NORM RATIO 1.1 (0.9-1.1); Prothrombin Time 12.8 SEC (10.0-13.1)
[2022-12-04 19:43] LABS: Troponin-I High Sensitivity < 2.7 ng/L (<3.5-17.0)
--- NOTE | 2022-12-04 19:43 | ED.FALL ---
HPI - Fall General Chief Complaint: Fall Stated Complaint: FALL, LEFT SHOULDER PAIN Time Seen by Provider: 12/04/22 18:24 Related Data Home Medications Medication Instructions Recorded Confirmed bolus insulin pump, 200 unit 2 12/04/22 12/04/22 unit bolus insulin patch pump, 200 unit, disposable (CeQur Simplicity) calcium carbonate 600 mg-vitamin 1 tab PO Q12H 12/04/22 D3 10 mcg (400 unit) tablet dulaglutide 1.5 mg/0.5 mL mg subcut 12/04/22 subcutaneous pen injector (Trulicity) escitalopram oxalate 20 mg tablet 20 mg PO DAILY 12/04/22 gabapentin 100 mg capsule mg PO 12/04/22 insulin glargine 100 unit/mL (3 26 unit subcut BID 12/04/22 mL) subcutaneous pen insulin lispro 100 unit/mL subcut 12/04/22 subcutaneous cartridge (Humalog U-100 Insulin) insulin lispro 100 unit/mL 8 unit subcut TID 12/04/22 subcutaneous pen meclizine 25 mg tablet 25 mg PO TID PRN dizziness 12/04/22 rosuvastatin 40 mg tablet 40 mg PO DAILY 12/04/22 simethicone 180 mg capsule 180 mg PO TID 12/04/22 Allergies Allergy/AdvReac Type Severity Reaction Status Date / Time seasonal Allergy Intermediate cough Uncoded 09/16/22 10:39 [facility] Past Medical History Medical History Asthma Diabetes type 2, uncontrolled Diabetic polyneuropathy associated with type 2 diabetes mellitus Dyslipidemia Hypertension Morbid obesity Obesity Obesity due to excess calories REY (obstructive sleep apnea) Vitamin D deficiency Surgical History H/O foot surgery History of carpal tunnel release History of dilatation and curettage History of esophagogastroduodenoscopy (EGD) History of eyelid surgery History of sleeve gastrectomy Hx of colonoscopy Hx of tubal ligation S/P trigger finger release Family History Family History Father Type II diabetes mellitus Obesity Mother HTN (hypertension) Brother Cancer Social History Social History Household Members: Spouse Alcohol intake: never Patient Tobacco Use Status: Former Tobacco user Tobacco use type: Cigarette Smoked in Last 30 Days: No Use of substances other than those prescribed or required for medical reasons: No Advance Directives: No Advance Directives Information Provided: Yes service: No Current occupational status: unemployed Current occupation: rt handed Physical Exam Vital Signs: Vital Signs: Last Vital Signs Temp 98.5 F 12/04/22 20:47 Pulse 94 12/04/22 20:47 Resp 19 12/04/22 20:47 BP 117/43 L 12/04/22 20:54 Pulse Ox 95 12/04/22 20:47 O2 Del Method Room Air 12/04/22 20:47 BMI result Body Mass Index 44.4 VITAL SIGNS: Reviewed. GENERAL: Elevated BMI, Well developed, well nourished, in no acute distress. HEAD: Normocephalic/atraumatic EYES: PERRLA, EOMI EARS: Ext canals without abnormality NOSE: Nares patent bilateral OROPHARYNX: no oral lesions noted, posterior pharynx clear and non-erythematous without noted tonsillar enlargement/erythema/exudates NECK: C-collar in place, no midline cervical spine pain or step offs LUNGS: Normal breath sounds. No adventitious sounds or accessory muscle use. SpO2<98>; CHEST WALL: No pain on palpation, no crepitus or deformity noted CARDIOVASCULAR: Regular rate and rhythm without noted murmurs, no JVD or lower extremity edema. ABDOMEN: Soft, non-tender, non-distended with bowel sounds. PELVIS: Stable, nontender MUSCULOSKELETAL: No tenderness, deformities, or effusions noted on gross inspection. EXTREMITIES: No cyanosis, clubbing or edema; LEFT UPPER EXTREMITY: Pain on palpation around the left shoulder but neurovascular intact distally, full range of motion at the elbow without pain on palpation; LEFT KNEE: No erythema, edema or deformity noted and no pain on palpation; LEFT LOWER EXTREMITY: Mid tibial pain and obvious clicking, palpable DP/PT with good capillary refill and sensation SKIN: Inspection of the skin reveals no rashes, ulcerations NEUROLOGIC: Alert and oriented x 4. Strength and sensation to light touch were grossly intact x 4. Medications Administered Discontinued Medications Generic Name Dose Route Start Last Admin Trade Name Freq PRN Reason Stop Dose Admin Fentanyl 50 mcg 12/04/22 19:46 12/04/22 19:59 Fentanyl Citrate/Pf 100 Mcg/2 Ml Vial IVPUSH 12/04/22 19:47 50 mcg ONCE ONE Administration Protocol Ketorolac Tromethamine 15 mg 12/04/22 19:47 12/04/22 19:59 Ketorolac Tromethamine 30 Mg/Ml Vial IVPUSH 12/04/22 19:48 15 mg ONCE ONE Administration Medical Decision Making Medical Decision Making MDM Narrative: 72-year-old female with history and clinical presentation consistent with mechanical fall has resulted in compound fracture of the tibial and fibula. Splint has been placed to the left lower extremity, patient has received pain medication. I reviewed all investigations and patient exhibits a reactive leukocytosis secondary to the fall. 2147: I discussed with orthopedic surgery who recommends admission to medicine and will follow in the morning. 2151: I discussed the case with inpatient hospitalist who accepts admission. Differential Diagnosis Please see the discussion above Consult Healthcare Provider Management of the patient was discussed with: Hospitalist and Appeals Examiner Please see the discussion above Lab Data Please see the discussion above 12/04/22 19:07 12/04/22 19:07 Labs: Lab Results 12/04/22 12/04/22 12/04/22 Range/Units 18:28 19:07 19:07 WBC 12.5 H (4.8-10.8) X10*3/uL RBC 4.90 (4.20-5.50) X10*6/uL Hgb 13.5 (12.0-16.0) g/dl Hct 40.6 (37.0-47.0) % MCV 82.9 (80.0-98.0) fL MCH 27.6 (27.0-33.0) pg MCHC 33.3 (31.0-35.0) g/dl RDW 13.4 (11.0-16.0) % Plt Count 195 (160-400) X10*3/uL MPV 11.4 (9.4-12.3) fL Immature Gran % (Auto) 0.3 (0.0-0.4) % Neut % (Auto) 80.9 H (45-73) % Lymph % (Auto) 12.9 L (20-40) % [place] % (Auto) 5.1 (2-11) % Eos % (Auto) 0.6 (0-4) % Baso % (Auto) 0.2 (0-2) % Lymph # (Auto) 1.6 (1.2-4.9) X10*3/uL [place] # (Auto) 0.6 (0.1-1.2) X10*3/uL Eos # (Auto) 0.1 (0.0-0.4) X10*3/uL Baso # (Auto) 0.0 (0.0-0.2) X10*3/uL Abs Immat Gran (auto) 0.04 H (0.00-0.03) X10*3/uL Absolute Neuts (auto) 10.1 H (2.0-8.3) x10*3/uL Absolute Nucleated RBC 0.000 (0.0-0.012) X10*3/uL Nucleated RBC % (auto) 0.0 (0.0-0.2) /100WBC PT (10.0-13.1) SEC INR (0.9-1.1) Sodium 138 (135-145) mmol/L Potassium 4.9 (3.3-5.1) mmol/L Chloride 106 (96-108) mmol/L Carbon Dioxide 26 (22-29) mmol/L Anion Gap 11 L (12-20) BUN 15 (9-16) mg/dL Creatinine 0.68 (0.5-1.4) mg/dL Estim Creat Clear Calc 90.1 Estimated GFR > 60 POC Glucose 184 H (60-115) mg/dL Random Glucose 223 H (60-115) mg/dL Calcium 9.1 (8.4-10.2) mg/dL Total Bilirubin 0.3 (0.0-1.0) mg/dL AST 24 (5-31) U/L ALT 26 (0-31) U/L Alkaline Phosphatase 68 (39-117) U/L Troponin I High Sens (<3.5-17.0) ng/L Total Protein 6.7 (6.5-8.0) g/dL Albumin 3.6 (3.5-5.0) g/dL 12/04/22 12/04/22 Range/Units 19:07 19:07 WBC (4.8-10.8) X10*3/uL RBC (4.20-5.50) X10*6/uL Hgb (12.0-16.0) g/dl Hct (37.0-47.0) % MCV (80.0-98.0) fL MCH (27.0-33.0) pg MCHC (31.0-35.0) g/dl RDW (11.0-16.0) % Plt Count (160-400) X10*3/uL MPV (9.4-12.3) fL Immature Gran % (Auto) (0.0-0.4) % Neut % (Auto) (45-73) % Lymph % (Auto) (20-40) % [place] % (Auto) (2-11) % Eos % (Auto) (0-4) % Baso % (Auto) (0-2) % Lymph # (Auto) (1.2-4.9) X10*3/uL [place] # (Auto) (0.1-1.2) X10*3/uL Eos # (Auto) (0.0-0.4) X10*3/uL Baso # (Auto) (0.0-0.2) X10*3/uL Abs Immat Gran (auto) (0.00-0.03) X10*3/uL Absolute Neuts (auto) (2.0-8.3) x10*3/uL Absolute Nucleated RBC (0.0-0.012) X10*3/uL Nucleated RBC % (auto) (0.0-0.2) /100WBC PT 12.8 (10.0-13.1) SEC INR 1.1 (0.9-1.1) Sodium (135-145) mmol/L Potassium (3.3-5.1) mmol/L Chloride (96-108) mmol/L Carbon Dioxide (22-29) mmol/L Anion Gap (12-20) BUN (9-16) mg/dL Creatinine (0.5-1.4) mg/dL Estim Creat Clear Calc Estimated GFR POC Glucose (60-115) mg/dL Random Glucose (60-115) mg/dL Calcium (8.4-10.2) mg/dL Total Bilirubin (0.0-1.0) mg/dL AST (5-31) U/L ALT (0-31) U/L Alkaline Phosphatase (39-117) U/L Troponin I High Sens < 2.7 (<3.5-17.0) ng/L Total Protein (6.5-8.0) g/dL Albumin (3.5-5.0) g/dL Independent Interpretation I performed an independent interpretation of an: EKG Interpretation: Sinus rhythm with PACs, HR-93, no STEMI, NH/QRS/QTC is within normal limits. Radiology Impression Radiologist Impression: My interpretation is in agreement with radiology's impression of the imaging studies. Discharge Plan Discharge Clinical Impression: Fall, Displaced comminuted fracture of shaft of left tibia, initial encounter for closed fracture, Displaced fracture of distal end of fibula, Closed comminuted fracture of left humerus Patient Disposition: Admitted As Inpatient
[2022-12-04 19:59] VITALS: RESP 18
[2022-12-04] MEDS: Ketorolac Tromethamine 30 MG/ML VIAL 15 MG IVPUSH (19:59)
[2022-12-04] MEDS: fentaNYL citrate/PF 100 MCG/2 ML VIAL 50 MCG IVPUSH (19:59)
[2022-12-04 20:47] VITALS: PULSE 94; RESP 19; TEMP 36.9; O2SAT 95
[2022-12-04 20:54] VITALS: BP 117/43
--- NOTE | 2022-12-04 22:35 | PHA.MEDREC ---
Pharmacy Consult ? Medication Reconciliation Pharmacy has completed the medication reconciliation. [employer] services used; pt's at bedside. Pt able to confirm meds based off claim history, went to get RX bottles from car.
[2022-12-05] VITALS (7 sets, daily range): BP systolic 115–148; BP diastolic 62–84; PULSE 94–103; RESP 16–22; TEMP 36.1–37.3; O2SAT 92–96
[2022-12-05 00:20] LABS: COVID-19 Test Negative (Negative); IDNOW Serial# BCCEAD1C
--- NOTE | 2022-12-05 00:22 | P.HPHOSP_ITS ---
History of Present Illness Date of Service: 12/05/22 Chief Complaint: Fall Spent only, history is obtained with the help of an community product specialist This is a 72-year-old female past medical history of diabetes, HTN, HLD, ob esity, with a presents to the hospital after having a mechanical fall. Patient states that she was walking up the steps, her leg slipped, fell to her left side developing immediate pain in her left arm and leg. Patient otherwise reports no dizziness, no loss of consciousness, no palpitations, no chest pain, no shortness of breath cough, no abdominal pain nausea or vomiting, no diarrhea constipation, no urinary symptoms and no lower extremity edema. On arrival to the ED patient hemodynamically stable with no significant abnormal vitals labs are significant for WBC count of 12.5, labs otherwise unremarkable, Imaging including shoulder x-ray showed commuted left humeral head/neck fracture stable in alignment with subluxation Head and cervical spine CT negative Chest CT negative Tibia/fibular x-ray shows acute displaced comminuted obliquely oriented fracture of the mid tibia diet feces with extension of comminution into the lateral tibial plateau Orthopedic consult, wants the patient to be admitted for further management Review of Systems Review of Systems: Yes all other systems are reviewed and are negative PMFSH Medical History Asthma Diabetes type 2, uncontrolled Diabetic polyneuropathy associated with type 2 diabetes mellitus Dyslipidemia Hypertension Morbid obesity Obesity Obesity due to excess calories REY (obstructive sleep apnea) Vitamin D deficiency Family History Father Type II diabetes mellitus Obesity Mother HTN (hypertension) Brother Cancer Surgical History H/O foot surgery History of carpal tunnel release History of dilatation and curettage History of esophagogastroduodenoscopy (EGD) History of eyelid surgery History of sleeve gastrectomy Hx of colonoscopy Hx of tubal ligation S/P trigger finger release Social History Household Members: Spouse Alcohol intake: never Patient Tobacco Use Status: Former Tobacco user Tobacco use type: Cigarette Smoked in Last 30 Days: No Use of substances other than those prescribed or required for medical reasons: No Advance Directives: No Advance Directives Information Provided: Yes Nutrition Risks: No Nutritional Risk service: No Current occupational status: unemployed Current occupation: rt handed Meds Allergies Allergy/AdvReac Type Severity Reaction Status Date / Time seasonal Allergy Intermediate cough Uncoded 09/16/22 10:39 Active Medications: Current Medications Pharmacy Consult (Consult Rx Perform Med Rec) 1 each MISCELLANE ONCE PRN PRN Reason: Consult order Home Medications Medication Instructions Recorded Confirmed Last Taken Type bolus insulin pump, 200 unit 2 12/04/22 12/04/22 Unknown History unit bolus insulin patch pump, 200 unit, disposable (CeQur Simplicity) calcium carbonate 600 mg-vitamin 1 tab PO Q12H 12/04/22 12/04/22 12/04/22 History D3 10 mcg (400 unit) tablet dulaglutide 1.5 mg/0.5 mL 1.5 mg subcut DEVRIES 12/04/22 12/04/22 11/30/22 History subcutaneous pen injector (Trulicity) escitalopram oxalate 20 mg tablet 20 mg PO DAILY 12/04/22 12/04/22 12/04/22 History insulin glargine 100 unit/mL (3 26 unit subcut BEDTIME 12/04/22 12/04/22 Unknown History mL) subcutaneous pen insulin lispro 100 unit/mL 8 unit subcut TID 12/04/22 12/04/22 12/04/22 History subcutaneous pen meclizine 25 mg tablet 25 mg PO DAILY PRN dizziness 12/04/22 12/04/22 12/04/22 History rosuvastatin 40 mg tablet 40 mg PO DAILY 12/04/22 12/04/22 12/04/22 History Physical Exam Vital Signs and Narrative: Vital Signs: Last Vital Signs Temp 98.5 F 12/04/22 20:47 Pulse 94 12/04/22 20:47 Resp 19 12/04/22 20:47 BP 117/43 L 12/04/22 20:54 Pulse Ox 95 12/04/22 20:47 O2 Del Method Room Air 12/04/22 20:47 BMI result Body Mass Index 44.4 Const: General: cooperative and no acute distress Orientation/consciousness: patient oriented x3 Eyes: General: appearance normal, both eyes and all related structures Resp: Effort & Inspection: normal respiratory effort Auscultation: clear to auscultation bilaterally Cardio: Rate: regular rate Rhythm: regular rhythm GI: Palpation (GI): Soft to palpation Auscultation: normal bowel sounds Skin: General skin exam: no rashes or lesions noted Neuro: General: patient oriented x3 Cognition (Neuro): normal cognition Extrem: Other: Left lower extremity in a splint, left arm in a sling Results Labs 12/04/22 19:07 12/04/22 19:07 Labs: Laboratory Results - last 24 hr 12/04/22 12/04/22 12/04/22 18:28 19:07 19:07 MCV 82.9 MCH 27.6 MCHC 33.3 RDW 13.4 Plt Count 195 MPV 11.4 Immature Gran % (Auto) 0.3 Neut % (Auto) 80.9 H Lymph % (Auto) 12.9 L [place] % (Auto) 5.1 Eos % (Auto) 0.6 Baso % (Auto) 0.2 Lymph # (Auto) 1.6 [place] # (Auto) 0.6 Eos # (Auto) 0.1 Baso # (Auto) 0.0 Abs Immat Gran (auto) 0.04 H Absolute Neuts (auto) 10.1 H Absolute Nucleated RBC 0.000 Nucleated RBC % (auto) 0.0 PT INR Anion Gap 11 L Estim Creat Clear Calc 90.1 Estimated GFR > 60 POC Glucose 184 H Random Glucose 223 H Calcium 9.1 Total Bilirubin 0.3 AST 24 ALT 26 Alkaline Phosphatase 68 Troponin I High Sens Total Protein 6.7 Albumin 3.6 COVID-19 ([facility]) COVID-19 Clin Com 12/04/22 12/04/22 12/05/22 19:07 19:07 00:02 MCV MCH MCHC RDW Plt Count MPV Immature Gran % (Auto) Neut % (Auto) Lymph % (Auto) [place] % (Auto) Eos % (Auto) Baso % (Auto) Lymph # (Auto) [place] # (Auto) Eos # (Auto) Baso # (Auto) Abs Immat Gran (auto) Absolute Neuts (auto) Absolute Nucleated RBC Nucleated RBC % (auto) PT 12.8 INR 1.1 Anion Gap Estim Creat Clear Calc Estimated GFR POC Glucose Random Glucose Calcium Total Bilirubin AST ALT Alkaline Phosphatase Troponin I High Sens < 2.7 Total Protein Albumin COVID-19 ([facility]) Negative COVID-19 Clin Com See Note Imaging Radiologist's Impressions: Impressions Ankle X-Ray 12/04/22 20:25 IMPRESSION: Overlying splinting material obscures evaluation of fine bony detail. There is an obliquely oriented, displaced fracture of the distal fibular diaphysis. No widening of the medial clear space. Acute displaced comminuted obliquely oriented fracture of the mid tibial diaphysis with extension of comminution into the lateral tibial plateau appears depressed with lateral displacement of the distal fracture fragment by approximately 1 cm. Lucent lesion in the calcaneus, possibly an intraosseous lipoma, which can be confirmed with a CT or MR. Diffuse soft tissue swelling. Large suprapatellar joint effusion. Tibia/Fibula X-Ray 12/04/22 20:25 IMPRESSION: Overlying splinting material obscures evaluation of fine bony detail. There is an obliquely oriented, displaced fracture of the distal fibular diaphysis. No widening of the medial clear space. Acute displaced comminuted obliquely oriented fracture of the mid tibial diaphysis with extension of comminution into the lateral tibial plateau appears depressed with lateral displacement of the distal fracture fragment by approximately 1 cm. Lucent lesion in the calcaneus, possibly an intraosseous lipoma, which can be confirmed with a CT or MR. Diffuse soft tissue swelling. Large suprapatellar joint effusion. Cervical Spine CT 12/04/22 21:13 IMPRESSION: 1. No acute intracranial pathology. 2. No CT evidence of acute cervical spine fracture or traumatic subluxation Chest CT 12/04/22 21:15 IMPRESSION: Comminuted fracture of left humeral neck/head. Fleischner guidelines were followed. Humerus CT 12/04/22 21:17 IMPRESSION: Comminuted fracture of left humeral neck/head. Fleischner guidelines were followed. Head CT 12/04/22 21:18 IMPRESSION: 1. No acute intracranial pathology. 2. No CT evidence of acute cervical spine fracture or traumatic subluxation Shoulder X-Ray 12/04/22 22:32 IMPRESSION: * Comminuted left humeral head/neck fracture, stable in alignment compared to the prior CT * Mild inferior subluxation of the humeral head with respect to the glenoid due to presumptive hemarthrosis. Assessment and Plan (1) Displaced comminuted fracture of shaft of left tibia, initial encounter for closed fracture: Status: Acute (2) Displaced fracture of distal end of fibula: Status: Acute (3) Fall: Status: Acute (4) Closed comminuted fracture of left humerus: Status: Acute Plan 72-year-old female past medical history of diabetes, hypertension, HLD presents to the hospital with complaints of fall found to have multiple fractures # multiple acute fractures including tibia, fibula, as well as humerus - will consult Orthopedics - pain management - lower extremity splinted, and upper extremity in a sling # fall - mechanical - fall precaution and PT OT prior to discharge # diabetes - continue home insulin - low-dose sliding scale insulin - diabetic diet # HLD - continue statin DVT prophylaxis: Heparin subQ Given patient's multiple fractures requiring further evaluation by surgery patient will require minimal two nights inpatient hospital stay for further management and monitoring Time Spent With Patient Time: Total time managing care of this patient today ____ minutes. Quality Stroke Does the patient have a stroke diagnosis?: No VTE Prior VTE?: No VTE Risk Level:: Medical - moderate - high VTE Device Contraindication: Treatment Not Indicated VTE Drug Contraindication: N/A - Med Ordered
--- NOTE | 2022-12-05 02:20 | MHC.EDTECH ---
Pt requested ice pack. Pt states she is warm. Ice pack wrapped in a towel placed on pts head.
--- NOTE | 2022-12-05 04:01 | MHC.EDTECH ---
pt came over from the ED , a purewick was put in, and vitals were taken she is resting
[2022-12-05 05:52] LABS: MANUAL DIFF FLAG NO
[2022-12-05 05:57] LABS: Basophils Percent Auto 0.2 % (0-2); Hematocrit 35.6 % (37.0-47.0); Imm Gran Abs Auto 0.04 X10*3/uL (0.00-0.03); Imm Gran Pct Auto 0.3 % (0.0-0.4); Lymphocytes Absolute Auto 1.3 X10*3/uL (1.2-4.9); Lymphocytes Percent Auto 10.8 % (20-40); Mean Corpuscular HGB Conc 33.7 g/dl (31.0-35.0); Mean Corpuscular Hemoglobin 27.7 pg (27.0-33.0); Mean Corpuscular Volume 82.2 fL (80.0-98.0); Mean Platelet Volume 11.3 fL (9.4-12.3); Monocytes Absolute Auto 0.7 X10*3/uL (0.1-1.2); Monocytes Percent Auto 5.5 % (2-11); Neutrophils Absolute Auto 10.1 x10*3/uL (2.0-8.3); Neutrophils Percent Auto 83.2 % (45-73); Platelet Count 211 X10*3/uL (160-400); Red Blood Count 4.33 X10*6/uL (4.20-5.50); Red Cell Distribution Width 13.4 % (11.0-16.0); White Blood Count 12.1 X10*3/uL (4.8-10.8)
[2022-12-05 06:09] LABS: Anion Gap 16 (12-20); Blood Urea Nitrogen 24 mg/dL (9-16); Calcium 8.8 mg/dL (8.4-10.2); Carbon Dioxide 21 mmol/L (22-29); Chloride 107 mmol/L (96-108); Creatinine Clr Calc Pharmacy 90.1; Estimated Glomerular Filt Rate > 60; Glucose Random 200 mg/dL (60-115); Potassium 4.7 mmol/L (3.3-5.1); Sodium 139 mmol/L (135-145)
[2022-12-05] MEDS: Morphine Sulfate 4 MG/ML CARTRIDGE IVPUSH ×2 (06:09→10:43)
--- NOTE | 2022-12-05 06:19 | MHC.EDTECH ---
pt is not NPO
[2022-12-05 07:10] LABS: Glucose, Whole Blood 182 mg/dL (60-115)
--- NOTE | 2022-12-05 07:54 | P.CONOP_ITS ---
History of Present Illness HPI Consult date: 12/05/22 Chief complaint: fibular and humeral fx Narrative: Ms. Barrington Ramon is a 72 yo female with a PMH significant for diabetes, neuropathy, fibromyalgia, hypertension, dyslipidemia, status post gastric sleeve surgery, and GERD who presented after sustaining a mechanical fall down the stairs on the back of her house. She reports that there was nothing to grab on to and she lost her balance causing her to fall. X-rays obtained of the left shoulder revealed a proximal humerus fx. Additionally x-rays of the left tibia revealed a tibia shaft fracture. The patient was admitted to the medicine service with orthopedic consult for further evaluation and treatment. Review of Systems Review of Systems: Yes all other systems are reviewed and are negative PMFSH Past Medical History Medical History Asthma Diabetes type 2, uncontrolled Diabetic polyneuropathy associated with type 2 diabetes mellitus Dyslipidemia Hypertension Morbid obesity Obesity Obesity due to excess calories REY (obstructive sleep apnea) Vitamin D deficiency Family History Family History Father Type II diabetes mellitus Obesity Mother HTN (hypertension) Brother Cancer Surgical History Surgical History H/O foot surgery History of carpal tunnel release History of dilatation and curettage History of esophagogastroduodenoscopy (EGD) History of eyelid surgery History of sleeve gastrectomy Hx of colonoscopy Hx of tubal ligation S/P trigger finger release Social History Social History Household Members: Spouse Alcohol intake: never Patient Tobacco Use Status: Former Tobacco user Tobacco use type: Cigarette Smoked in Last 30 Days: No Use of substances other than those prescribed or required for medical reasons: No Advance Directives: No Advance Directives Information Provided: Yes Nutrition Risks: No Nutritional Risk service: No Current occupational status: unemployed Current occupation: rt handed Meds Allergies Allergy/AdvReac Type Severity Reaction Status Date / Time seasonal Allergy Intermediate cough Uncoded 09/16/22 10:39 Active Medications: Current Medications Acetaminophen (Acetaminophen 325 Mg Tablet) 650 mg PO Q6H PRN PRN Reason: Pain, Mild (Pain Scale 1-3) Atorvastatin Calcium (Atorvastatin Calcium 80 Mg Tablet) 80 mg PO DAILY [facility] Calcium Carbonate/Cholecalciferol (Calcium + Vitamin D 250 Mg Tablet) 500 mg PO BID [facility] Docusate Sodium (Docusate Sodium 100 Mg Capsule) 100 mg PO DAILY PRN PRN Reason: Constipation Enoxaparin Sodium (Enoxaparin Sodium 40 Mg/0.4 Ml Syringe) 40 mg SUBCUT Q24H [facility] Escitalopram Oxalate (Escitalopram Oxalate 20 Mg Tablet) 20 mg PO DAILY [facility] Glucose (Glucose Gel 15 Gm Gel..Gram.) 15 gm PO Q15M PRN; Protocol PRN Reason: per Hypoglycemia Standing Ord. Dextrose (D10) 250 mls @ 750 mls/hr IV Q15M PRN; Protocol PRN Reason: per Hypoglycemia Standing Ord. Insulin Glargine (Insulin Glargine,Hum.Rec.Anlog 100 Unit/Ml 10 Ml Vial) 26 unit SUBCUT BEDTIME [facility] Insulin Human Lispro (Insulin Lispro 100 Unit/Ml 3 Ml Vial) 0.1 - 10 unit SUBCUT QIDACHS [facility]; Protocol Insulin Human Lispro (Insulin Lispro 100 Unit/Ml 3 Ml Vial) 8 unit SUBCUT TIDAC [facility] Meclizine HCl (Meclizine Hcl 25 Mg Tablet) 25 mg PO DAILY PRN PRN Reason: dizziness Morphine Sulfate (Morphine Sulfate 4 Mg/Ml Cartridge) 4 mg IVPUSH Q4H PRN; Protocol PRN Reason: Pain, Severe (Pain Scale 7-10) Last Admin: 12/05/22 06:09 Dose: 4 mg Ondansetron HCl (Ondansetron Hcl 4 Mg/2 Ml Vial) 4 mg IVPUSH Q8H PRN PRN Reason: Nausea and Vomiting Oxycodone HCl (Oxycodone Hcl Immed Release 5 Mg Tablet) 5 mg PO Q4H PRN PRN Reason: Pain, Moderate (Pain Scale 4-6 Pharmacy Consult (Consult Rx Perform Med Rec) 1 each MISCELLANE ONCE PRN PRN Reason: Consult order Sodium Chloride (0.9 % Sodium Chloride Flush 3 Ml Syringe) 3 ml IVFLUSH QSHIFT [facility] Home Medications Medication Instructions Recorded Confirmed Last Taken Type bolus insulin pump, 200 unit 2 12/04/22 12/04/22 Unknown History unit bolus insulin patch pump, 200 unit, disposable (CeQur Simplicity) calcium carbonate 600 mg-vitamin 1 tab PO Q12H 12/04/22 12/04/22 12/04/22 History D3 10 mcg (400 unit) tablet dulaglutide 1.5 mg/0.5 mL 1.5 mg subcut DEVRIES 12/04/22 12/04/22 11/30/22 History subcutaneous pen injector (Trulicity) escitalopram oxalate 20 mg tablet 20 mg PO DAILY 12/04/22 12/04/22 12/04/22 History insulin glargine 100 unit/mL (3 26 unit subcut BEDTIME 12/04/22 12/04/22 Unknown History mL) subcutaneous pen insulin lispro 100 unit/mL 8 unit subcut TID 12/04/22 12/04/22 12/04/22 History subcutaneous pen meclizine 25 mg tablet 25 mg PO DAILY PRN dizziness 12/04/22 12/04/22 12/04/22 History rosuvastatin 40 mg tablet 40 mg PO DAILY 12/04/22 12/04/22 12/04/22 History Physical Exam Vital Signs: Vital Signs: Last Vital Signs Temp 97.5 F 12/05/22 03:41 Pulse 94 12/05/22 03:41 Resp 16 12/05/22 03:41 BP 128/71 12/05/22 03:41 Pulse Ox 96 12/05/22 03:41 O2 Del Method Room Air 12/05/22 03:41 BMI result Body Mass Index 44.4 Const: General: cooperative, healthy appearing and no acute distress Resp: Effort & Inspection: normal respiratory effort and able to speak in complete sentences Cardio: Rate: regular rate Peripheral pulses: Peripheral pulses 2+ throughout GI: Palpation (GI): Soft to palpation Skin: Lesions: no lesions Rashes: no rashes Extrem: Other: Left lower extremity: Splint is c/d/i. Able to move all digits. Sensation intact. Capillary refill is brisk. Left upper extremity: Able to perform full finger flexion, extension, abduction, adduction, finger cross, ok sign, and thumbs up without deficits. Able to perform wrist flexion and extension. Sensation intact. Radial pulse intact. Capillary refill is brisk. Results Labs 12/05/22 05:41 12/05/22 05:41 Labs: Abnormal lab results 12/04/22 12/04/22 12/04/22 Range/Units 18:28 19:07 19:07 WBC 12.5 H (4.8-10.8) X10*3/uL Hct (37.0-47.0) % Neut % (Auto) 80.9 H (45-73) % Lymph % (Auto) 12.9 L (20-40) % Abs Immat Gran (auto) 0.04 H (0.00-0.03) X10*3/uL Absolute Neuts (auto) 10.1 H (2.0-8.3) x10*3/uL Carbon Dioxide (22-29) mmol/L Anion Gap 11 L (12-20) BUN (9-16) mg/dL POC Glucose 184 H (60-115) mg/dL Random Glucose 223 H (60-115) mg/dL 12/05/22 12/05/22 12/05/22 Range/Units 05:41 05:41 07:06 WBC 12.1 H (4.8-10.8) X10*3/uL Hct 35.6 L (37.0-47.0) % Neut % (Auto) 83.2 H (45-73) % Lymph % (Auto) 10.8 L (20-40) % Abs Immat Gran (auto) 0.04 H (0.00-0.03) X10*3/uL Absolute Neuts (auto) 10.1 H (2.0-8.3) x10*3/uL Carbon Dioxide 21 L (22-29) mmol/L Anion Gap (12-20) BUN 24 H (9-16) mg/dL POC Glucose 182 H (60-115) mg/dL Random Glucose 200 H (60-115) mg/dL H & H 12/04/22 12/05/22 Range/Units 19:07 05:41 Hgb 13.5 12.0 (12.0-16.0) g/dl Hct 40.6 35.6 L (37.0-47.0) % Coagulation 12/04/22 Range/Units 19:07 INR 1.1 (0.9-1.1) All other labs normal. Assessment and Plan (1) Fall: Status: Acute (2) Displaced comminuted fracture of shaft of left tibia, initial encounter for closed fracture: Status: Acute I discussed the case with Dr. Cortez and explained the extent of the injury to the patient and options available which include surgical intervention. I explained the procedure in detail along with the length of recovery and rehab course. I explained the risk, benefits and alternatives. Risk including, but not limited to infection, blood clots, bleeding, non union or malunion and nerve/tissue damage to surrounding areas. I answered all their questions and with their understanding they have consented to move forward with Operative Fixation of the left tibia. The patient will remain NPO with anticipation of surgery later today. For the left proximal humerus fracture patient may use sling for comfort. Encourage gentle elbow hand and wrist ROM. NWB left upper extremity. MAy come out of the sling to let the arm hang. (3) Displaced fracture of distal end of fibula: Status: Acute (4) Closed comminuted fracture of left humerus: Status: Acute (5) Obesity due to excess calories: Qualifiers: Obesity classification: adult class 2 (BMI 35 - 39.9) Serious obesity comorbidity presence: with serious comorbidity Body mass index: BMI 39.0-39.9 Qualified Code(s): E66.01 - Morbid (severe) obesity due to excess calories; Z68.39 - Body mass index [BMI] 39.0-39.9, adult Status: Acute (6) Diabetic polyneuropathy associated with type 2 diabetes mellitus: Status: Acute (7) Diabetes type 2, uncontrolled: Qualifiers: Glycemic state: with hyperglycemia Qualified Code(s): E11.65 - Type 2 diabetes mellitus with hyperglycemia Status: Acute Time Spent With Patient Time: Total time managing care of this patient today ____ minutes. Procedures Date of Service Date of Service: 12/05/22
[2022-12-05] MEDS: Escitalopram Oxalate 20 MG TABLET PO (08:27)
[2022-12-05] MEDS: Atorvastatin Calcium 80 MG TABLET PO (08:27)
[2022-12-05] MEDS: oxyCODONE HCl Immed Release 5 MG TABLET PO ×2 (08:28→14:59)
[2022-12-05] MEDS: Calcium + Vitamin D 250 MG TABLET 500 MG PO ×2 (08:28→20:25)
[2022-12-05] MEDS: 0.9 % Sodium Chloride Flush 3 ML SYRINGE IVFLUSH ×3 (08:30→20:26)
[2022-12-05 11:56] LABS: Glucose, Whole Blood 143 mg/dL (60-115)
--- NOTE | 2022-12-05 12:39 | MHC.CM.PN ---
IMM delivered 12/05. Pt arrived to the ED after a mechanical fall and sustaining a fibular and humeral fx. Pt awaiting surgical repair. Pt will need PT eval. D/C plan is to be determined pending hospital course, but pt would like to return home once medically cleared. Pt lives with in apartment, she uses a cane. Pt French speaking and will need an interpreter and translator. Pt has a [employer]DIL Deann ([phone]) M-F. HCP offered, pt declined at this time. PCP: Radha German Vax: x 4 moderna, x 1 pfizer
--- NOTE | 2022-12-05 14:20 | PM.EVENT ---
Event Note Date of Service: 12/05/22 Event Note: 72-year-old female past medical history of diabetes, hypertension, HLD presents to the hospital with complaints of fall found to have multiple fractures # Multiple acute fractures including tibia, fibula, and humerus - seen by Orthopedic surgery in regard to left proximal humeral fracture they recommend sling for comfort, not nonweightbearing left upper extremity and gentle elbow hand and wrist range of motion Will undergo surgery for fixation of left tibia Continue pain management lower extremity splinted, and upper extremity in a sling # fall - mechanical - fall precaution and PT OT prior to discharge # diabetes mellitus on insulin - elevated blood sugars hemoglobin A1c 11.1 continue basal and bolus insulin and diabetic diet # HLD - continue Lipitor # morbid obesity recommend low calorie diet # obstructive sleep apnea use CPAP has own machine. DVT prophylaxis:? Heparin subQ Given patient's multiple fractures requiring further evaluation by surgery patient will require minimal two nights inpatient hospital stay for further management and monitoring Time Spent With Patient Time: Total time managing care of this patient today ____ minutes.
--- NOTE | 2022-12-05 14:32 | PC.NURSE ---
The provider explained the procedure to the patient and the rationale. After performing perineal care, A #16Fr Franco catheter was inserted using sterile technique. Halley tolerated the procedure well. A sterile urine specimen was obtained after insertion. A moderate amount of concentrated urine drained immediately.
[2022-12-05 14:43] LABS: Appearance Urine Cloudy; Color Urine Dark Yellow; Glucose Urine UA 500 mg/dL (Negative); Leukocyte Esterase Urine Negative (Negative); Nitrite Urine Negative (Negative); PH 5.5 (5.0-9.0); Specific Gravity - Urine >= 1.030 (1.005-1.025); Urine Blood Negative (Negative); Urine Ketones Negative (Negative); Urine Protein Trace mg/dL (Neg-Trace)
[2022-12-05] MEDS: Acetaminophen 325 MG TABLET 650 MG PO (14:59)
[2022-12-05 15:35] LABS: Glucose, Whole Blood 264 mg/dL (60-115)
[2022-12-05] MEDS: Insulin Lispro 100 UNIT/ML 3 ML VIAL SUBCUT (16:52)
[2022-12-05] MEDS: Insulin Lispro 100 UNIT/ML 3 ML VIAL 8 UNIT SUBCUT (16:52)
[2022-12-05 20:04] LABS: Glucose, Whole Blood 149 mg/dL (60-115)
[2022-12-05] MEDS: Insulin Glargine,Hum.rec.anlog 100 UNIT/ML 10 ML VIAL 26 UNIT SUBCUT (20:26)
[2022-12-06] VITALS (8 sets, daily range): BP systolic 116–139; BP diastolic 58–87; PULSE 97–103; RESP 14–20; TEMP 36.2–36.9; O2SAT 90–96
[2022-12-06] MEDS: Morphine Sulfate 4 MG/ML CARTRIDGE IVPUSH (00:49)
[2022-12-06 08:08] LABS: Glucose, Whole Blood 147 mg/dL (60-115)
[2022-12-06] MEDS: Atorvastatin Calcium 80 MG TABLET PO (09:34)
[2022-12-06] MEDS: Escitalopram Oxalate 20 MG TABLET PO (09:34)
[2022-12-06] MEDS: Calcium + Vitamin D 250 MG TABLET 500 MG PO ×2 (09:34→21:35)
[2022-12-06] MEDS: Enoxaparin Sodium 40 MG/0.4 ML SYRINGE SUBCUT (09:34)
[2022-12-06] MEDS: 0.9 % Sodium Chloride Flush 3 ML SYRINGE IVFLUSH ×2 (09:34→21:38)
--- NOTE | 2022-12-06 10:39 | HO.PM.IMPN ---
Subjective Subjective Date of Service: 12/06/22 Interval History: Complaining of left upper extremity and lower extremity pain not relieved with current pain medication had a bowel movement 2 days ago denies abdominal pain, no nausea, no vomiting tolerating diet, Left arm in sling, no acute overnight events. Review of Systems Review of Systems: Yes all other systems are reviewed and are negative Physical Exam Vital Signs: Vital Signs: Last Vital Signs Temp 98.5 F 12/06/22 07:50 Pulse 99 12/06/22 07:50 Resp 20 12/06/22 07:50 BP 124/69 12/06/22 07:50 Pulse Ox 96 12/06/22 07:50 O2 Del Method Room Air 12/06/22 07:50 BMI result Body Mass Index 44.4 Const: Other: Gen: Awake alert, in no acute distress HEENT: sclera anicteric, moist mucus membranes Neck: supple Lungs: clear to auscultation bilaterally, no wheeze Heart: regular rate and rhythm, no murmurs Abd: soft, obese, non-tender, non-distended Ext: Left arm in sling, left leg in splint, is able to move all toes Skin: warm/well-perfused Neuro: alert and oriented x3, no focal findings Psych: appropriate affect Objective Data Active Medications Acetaminophen (Acetaminophen 325 Mg Tablet) 650 mg PO Q6H PRN PRN Reason: Pain, Mild (Pain Scale 1-3) Last Admin: 12/05/22 14:59 Dose: 650 mg Documented By: ROSENDO Atorvastatin Calcium (Atorvastatin Calcium 80 Mg Tablet) 80 mg PO DAILY [facility] Last Admin: 12/06/22 09:34 Dose: 80 mg Documented By: NEERU Calcium Carbonate/Cholecalciferol (Calcium + Vitamin D 250 Mg Tablet) 500 mg PO BID [facility] Last Admin: 12/06/22 09:34 Dose: 500 mg Documented By: NEERU Docusate Sodium (Docusate Sodium 100 Mg Capsule) 100 mg PO DAILY PRN PRN Reason: Constipation Enoxaparin Sodium (Enoxaparin Sodium 40 Mg/0.4 Ml Syringe) 40 mg SUBCUT Q24H [facility] Last Admin: 12/06/22 09:34 Dose: 40 mg Documented By: NEERU Escitalopram Oxalate (Escitalopram Oxalate 20 Mg Tablet) 20 mg PO DAILY [facility] Last Admin: 12/06/22 09:34 Dose: 20 mg Documented By: NEERU Glucose (Glucose Gel 15 Gm Gel..Gram.) 15 gm PO Q15M PRN; Protocol PRN Reason: per Hypoglycemia Standing Ord. Dextrose (D10) 250 mls @ 750 mls/hr IV Q15M PRN; Protocol PRN Reason: per Hypoglycemia Standing Ord. Insulin Glargine (Insulin Glargine,Hum.Rec.Anlog 100 Unit/Ml 10 Ml Vial) 26 unit SUBCUT BEDTIME [facility] Last Admin: 12/05/22 20:26 Dose: 26 unit Documented By: POLY Insulin Human Lispro (Insulin Lispro 100 Unit/Ml 3 Ml Vial) 0.1 - 10 unit SUBCUT QIDACHS [facility]; Protocol Last Admin: 12/06/22 09:22 Dose: Not Given Documented By: NEERU Non-Admin Reason: No Access Insulin Human Lispro (Insulin Lispro 100 Unit/Ml 3 Ml Vial) 8 unit SUBCUT TIDAC [facility] Last Admin: 12/06/22 09:23 Dose: Not Given Documented By: NEERU Non-Admin Reason: No Insulin Coverage Meclizine HCl (Meclizine Hcl 25 Mg Tablet) 25 mg PO DAILY PRN PRN Reason: dizziness Morphine Sulfate (Morphine Sulfate 4 Mg/Ml Cartridge) 4 mg IVPUSH Q4H PRN; Protocol PRN Reason: Pain, Severe (Pain Scale 7-10) Last Admin: 12/06/22 00:49 Dose: 4 mg Documented By: NEMO Ondansetron HCl (Ondansetron Hcl 4 Mg/2 Ml Vial) 4 mg IVPUSH Q8H PRN PRN Reason: Nausea and Vomiting Oxycodone HCl (Oxycodone Hcl Immed Release 5 Mg Tablet) 5 mg PO Q4H PRN PRN Reason: Pain, Moderate (Pain Scale 4-6 Last Admin: 12/05/22 14:59 Dose: 5 mg Documented By: ROSENDO Pharmacy Consult (Consult Rx Perform Med Rec) 1 each MISCELLANE ONCE PRN PRN Reason: Consult order Sodium Chloride (0.9 % Sodium Chloride Flush 3 Ml Syringe) [facility] Last Admin: 12/06/22 09:34 Dose: 3 ml Documented By: NEERU Labs 12/05/22 05:41 12/05/22 05:41 Labs: Laboratory Results - last 24 hr 12/05/22 12/05/22 12/05/22 11:32 14:30 15:14 POC Glucose 143 H 264 H Urine Color Dark Yellow Urine Appearance Cloudy Urine pH 5.5 Ur Specific [place] >= 1.030 H Urine Protein Trace Urine Glucose (UA) 500 H Urine Ketones Negative Urine Blood Negative Urine Nitrite Negative Ur Leukocyte Esterase Negative 12/05/22 12/06/22 19:56 07:54 POC Glucose 149 H 147 H Urine Color Urine Appearance Urine pH Ur Specific [place] Urine Protein Urine Glucose (UA) Urine Ketones Urine Blood Urine Nitrite Ur Leukocyte Esterase Assessment and Plan (1) Closed comminuted fracture of left humerus: Status: Acute (2) Obesity due to excess calories: Status: Acute Plan 72-year-old female past medical history of diabetes, hypertension, HLD presents to the hospital with complaints of fall found to have multiple fractures # Multiple acute fractures including tibia, fibula, and humerus - seen by Orthopedic surgery in regard to left proximal humeral fracture they recommend sling for comfort, not nonweightbearing left upper extremity and gentle elbow hand and wrist range of motion ? Will undergo surgery for fixation of left tibia on 12/08, will keep her NPO midnight and will adjust dose of insulin ? Continue pain management, will add OxyContin 10 mg b.i.d. and add stool softeners ? lower extremity splinted, and upper extremity in a sling # diabetes mellitus on insulin- blood sugars improving, hemoglobin A1c 11.1 continue basal and bolus insulin and diabetic diet. # HLD - continue Lipitor at home takes Crestor # morbid obesity recommend low calorie diet # obstructive sleep apnea use CPAP has own machine. DVT prophylaxis:?lovenox subQ Given patient's multiple fractures requiring intravenous pain medication and surgery patient will require continued inpatient hospital stay Time Spent With Patient Time: Total time managing care of this patient today ____ minutes. Quality Stroke Does the patient have a stroke diagnosis?: No VTE Prior VTE?: No VTE Risk Level:: Medical - moderate - high VTE Device Contraindication: Treatment Not Indicated VTE Drug Contraindication: N/A - Med Ordered
[2022-12-06 11:58] LABS: Glucose, Whole Blood 173 mg/dL (60-115)
[2022-12-06] MEDS: Lactated Ringers 1,000 ML 50 ML IVCONT (13:52)
[2022-12-06] MEDS: oxyCODONE HCl ER 10 MG TAB.ER.12H PO (13:52)
[2022-12-06] MEDS: polyethylene glycoL 3350 17 GM POWD.PACK PO (13:52)
[2022-12-06 17:01] LABS: Glucose, Whole Blood 155 mg/dL (60-115)
[2022-12-06] MEDS: Insulin Lispro 100 UNIT/ML 3 ML VIAL SUBCUT (17:47)
[2022-12-06] MEDS: Insulin Lispro 100 UNIT/ML 3 ML VIAL 8 UNIT SUBCUT (17:48)
[2022-12-06 20:31] LABS: Glucose, Whole Blood 111 mg/dL (60-115)
[2022-12-06] MEDS: Insulin Glargine,Hum.rec.anlog 100 UNIT/ML 10 ML VIAL 26 UNIT SUBCUT (21:35)
[2022-12-07 04:52] VITALS: BP 103/68; PULSE 97; RESP 20; TEMP 37.2; O2SAT 93
[2022-12-07 08:00] VITALS: BP 123/86; PULSE 104; RESP 20; TEMP 36.9; O2SAT 94
[2022-12-07 08:55] LABS: Glucose, Whole Blood 178 mg/dL (60-115)
--- NOTE | 2022-12-07 08:57 | PM.PNORT ---
Subjective Subjective Date of Service: 12/07/22 Interval history: Patient is resting comfortably in bed. No overnight events. Splint is c/d/i. Pain is well managed. No additional complaints. Physical Exam Vital Signs: Vital Signs: Last Vital Signs Temp 98.4 F 12/07/22 08:00 Pulse 104 H 12/07/22 08:00 Resp 20 12/07/22 08:00 BP 123/86 12/07/22 08:00 Pulse Ox 94 12/07/22 08:00 O2 Del Method Room Air 12/07/22 08:00 BMI result Body Mass Index 44.4 Const: General: cooperative, healthy appearing and no acute distress Resp: Effort & Inspection: normal respiratory effort and able to speak in complete sentences Cardio: Rate: regular rate Peripheral pulses: Peripheral pulses 2+ throughout GI: Palpation (GI): Soft to palpation Skin: Lesions: no lesions Rashes: no rashes Extrem: Other: Left lower extremity: Splint is c/d/i. Able to move all digits. Sensation intact. Capillary refill is brisk. Edema is mild-moderate and continues to improve. Left upper extremity: Able to perform full finger flexion, extension, abduction, adduction, finger cross, ok sign, and thumbs up without deficits. Able to perform wrist flexion and extension. Sensation intact. Radial pulse intact. Capillary refill is brisk. Procedures Date of Service Date of Service: 12/07/22 Progress Note: A&P Assessment and plan (1) Fall: Status: Acute (2) Displaced comminuted fracture of shaft of left tibia, initial encounter for closed fracture: Status: Acute (3) Displaced fracture of distal end of fibula: Status: Acute (4) Closed comminuted fracture of left humerus: Status: Acute (5) Obesity due to excess calories: Status: Acute (6) Morbid obesity: Status: Acute (7) Diabetic polyneuropathy associated with type 2 diabetes mellitus: Status: Acute (8) Diabetes type 2, uncontrolled: Status: Acute Plan NPO after midnight Anticipate OR tomorrow afternoon for left tibia ORIF Cont. pain management Keep splint c/d/i Strict elevation on three pillows above heart level Will re-evaluate edema in the AM for anticipation of OR Time Spent With Patient Time: Total time managing care of this patient today ____ minutes. Quality Stroke Does the patient have a stroke diagnosis?: No VTE Prior VTE?: No VTE Risk Level:: Medical - moderate - high VTE Device Contraindication: Treatment Not Indicated VTE Drug Contraindication: N/A - Med Ordered
[2022-12-07] MEDS: Calcium + Vitamin D 250 MG TABLET 500 MG PO ×2 (09:55→20:09)
[2022-12-07] MEDS: oxyCODONE HCl ER 10 MG TAB.ER.12H PO ×2 (09:55→20:10)
[2022-12-07] MEDS: Insulin Lispro 100 UNIT/ML 3 ML VIAL SUBCUT (09:58)
[2022-12-07] MEDS: Insulin Lispro 100 UNIT/ML 3 ML VIAL 8 UNIT SUBCUT ×2 (09:59→17:29)
[2022-12-07] MEDS: 0.9 % Sodium Chloride Flush 3 ML SYRINGE IVFLUSH ×2 (09:59→17:26)
[2022-12-07] MEDS: Enoxaparin Sodium 40 MG/0.4 ML SYRINGE SUBCUT (10:00)
[2022-12-07] MEDS: polyethylene glycoL 3350 17 GM POWD.PACK PO (10:01)
[2022-12-07] MEDS: Escitalopram Oxalate 20 MG TABLET PO (10:03)
[2022-12-07] MEDS: Docusate Sodium 100 MG CAPSULE 200 MG PO (10:04)
[2022-12-07] MEDS: Atorvastatin Calcium 80 MG TABLET PO (10:05)
--- NOTE | 2022-12-07 11:10 | HO.PM.IMPN ---
Subjective Subjective Date of Service: 12/07/22 Interval History: Good pain control left arm and left leg, no bowel movement, no nausea no vomiting tolerating diet no acute issues overnight. Review of Systems Review of Systems: Yes all other systems are reviewed and are negative Physical Exam Vital Signs: Vital Signs: Last Vital Signs Temp 98.4 F 12/07/22 08:00 Pulse 104 H 12/07/22 08:00 Resp 20 12/07/22 08:00 BP 123/86 12/07/22 08:00 Pulse Ox 94 12/07/22 08:00 O2 Del Method Room Air 12/07/22 08:00 BMI result Body Mass Index 44.4 Const: Other: Gen:? Awake alert, in no acute distr ess HEENT: sclera anicteric, moist m ucus membranes Nec k: supple Lungs: c lear to auscultati on bilaterally, no wheeze Heart: reg ular rate and rhyt hm, no murmurs Abd : soft, obese, non -tender, non-diste nded Ext:? Left ar m in sling, left l eg in splint, is a ble to move all to es Skin: warm/well -perfused Neuro: a lert and oriented x3, no focal findi ngs Psych: appropr iate affect Objective Data Active Medications Acetaminophen (Acetaminophen 325 Mg Tablet) 650 mg PO Q6H PRN PRN Reason: Pain, Mild (Pain Scale 1-3) Last Admin: 12/05/22 14:59 Dose: 650 mg Documented By: ROSENDO Atorvastatin Calcium (Atorvastatin Calcium 80 Mg Tablet) 80 mg PO DAILY [facility] Last Admin: 12/07/22 10:05 Dose: 80 mg Documented By: NEERU Calcium Carbonate/Cholecalciferol (Calcium + Vitamin D 250 Mg Tablet) 500 mg PO BID [facility] Last Admin: 12/07/22 09:55 Dose: 500 mg Documented By: NEERU Docusate Sodium (Docusate Sodium 100 Mg Capsule) 200 mg PO DAILY [facility] Last Admin: 12/07/22 10:04 Dose: 200 mg Documented By: NEERU Enoxaparin Sodium (Enoxaparin Sodium 40 Mg/0.4 Ml Syringe) 40 mg SUBCUT Q24H [facility] Last Admin: 12/07/22 10:00 Dose: 40 mg Documented By: NEERU Escitalopram Oxalate (Escitalopram Oxalate 20 Mg Tablet) 20 mg PO DAILY [facility] Last Admin: 12/07/22 10:03 Dose: 20 mg Documented By: NEERU Glucose (Glucose Gel 15 Gm Gel..Gram.) 15 gm PO Q15M PRN; Protocol PRN Reason: per Hypoglycemia Standing Ord. Dextrose (D10) 250 mls @ 750 mls/hr IV Q15M PRN; Protocol PRN Reason: per Hypoglycemia Standing Ord. Lactated Ringer's (Lr) 1,000 mls @ 50 mls/hr IVCONT .Q20H [facility] Last Admin: 12/06/22 13:52 Dose: 50 mls/hr Documented By: NEERU Insulin Glargine (Insulin Glargine,Hum.Rec.Anlog 100 Unit/Ml 10 Ml Vial) 26 unit SUBCUT BEDTIME [facility] Last Admin: 12/06/22 21:35 Dose: 26 unit Documented By: BEATA Comments: Insulin Human Lispro (Insulin Lispro 100 Unit/Ml 3 Ml Vial) 0.1 - 10 unit SUBCUT QIDACHS [facility]; Protocol Last Admin: 12/07/22 09:58 Dose: 2 unit Documented By: NEERU Insulin Human Lispro (Insulin Lispro 100 Unit/Ml 3 Ml Vial) 8 unit SUBCUT TIDAC [facility] Last Admin: 12/07/22 09:59 Dose: 8 unit Documented By: NEERU Meclizine HCl (Meclizine Hcl 25 Mg Tablet) 25 mg PO DAILY PRN PRN Reason: dizziness Morphine Sulfate (Morphine Sulfate 4 Mg/Ml Cartridge) 4 mg IVPUSH Q4H PRN; Protocol PRN Reason: Pain, Severe (Pain Scale 7-10) Last Admin: 12/06/22 00:49 Dose: 4 mg Documented By: NEMO Ondansetron HCl (Ondansetron Hcl 4 Mg/2 Ml Vial) 4 mg IVPUSH Q8H PRN PRN Reason: Nausea and Vomiting Oxycodone HCl (Oxycodone Hcl Immed Release 5 Mg Tablet) 5 mg PO Q4H PRN PRN Reason: Pain, Moderate (Pain Scale 4-6 Last Admin: 12/05/22 14:59 Dose: 5 mg Documented By: ROSENDO Oxycodone HCl (Oxycodone Hcl Er 10 Mg Tab.Er.12h) 10 mg PO BID [facility] Last Admin: 12/07/22 09:55 Dose: 10 mg Documented By: NEERU Pharmacy Consult (Consult Rx Perform Med Rec) 1 each MISCELLANE ONCE PRN PRN Reason: Consult order Polyethylene Glycol (Polyethylene Glycol 3350 17 Gm Powd.Pack) 17 gm PO DAILY [facility] Last Admin: 12/07/22 10:01 Dose: 17 gm Documented By: NEERU Sodium Chloride (0.9 % Sodium Chloride Flush 3 Ml Syringe) 3 ml IVFLUSH QSHIFT [facility] Last Admin: 12/07/22 09:59 Dose: 3 ml Documented By: NEERU Labs 12/05/22 05:41 12/05/22 05:41 Labs: Laboratory Results - last 24 hr 12/06/22 12/06/22 12/06/22 11:47 16:54 20:27 POC Glucose 173 H 155 H 111 12/07/22 08:24 POC Glucose 178 H Assessment and Plan (1) Closed comminuted fracture of left humerus: Status: Acute (2) Obesity due to excess calories: Status: Acute Plan 72-year-old female past medical history of diabetes, hypertension, HLD presents to the hospital with complaints of fall found to have multiple fractures # Multiple acute fractures including tibia, fibula, and humerus - seen by Orthopedic surgery in regard to left proximal humeral fracture they recommend sling for comfort, non weight bearing left upper extremity and gentle elbow hand and wrist range of motion ? Will undergo surgery for fixation of left tibia on 12/08, NPO midnight ? Good pain control on OxyContin 10 mg b.i.d. and as needed oxycodone, continue stool softeners ? lower extremity splinted, and upper extremity in a sling # diabetes mellitus on insulin- blood sugars improving, hemoglobin A1c 11.1 continue basal and bolus insulin and diabetic diet. Will decrease dose of basal insulin. # HLD - continue Lipitor at home takes Crestor # morbid obesity recommend low calorie diet # obstructive sleep apnea use CPAP has own machine. DVT prophylaxis:?lovenox subQ Given patient's multiple fractures requiring intravenous pain medication and surgery patient will require continued inpatient hospital stay Time Spent With Patient Time: Total time managing care of this patient today ____ minutes. Quality Stroke Does the patient have a stroke diagnosis?: No VTE Prior VTE?: No VTE Risk Level:: Medical - moderate - high VTE Device Contraindication: Treatment Not Indicated VTE Drug Contraindication: N/A - Med Ordered
[2022-12-07 11:48] VITALS: BP 138/62; PULSE 98; RESP 17; TEMP 36.3; O2SAT 95
[2022-12-07] MEDS: oxyCODONE HCl Immed Release 5 MG TABLET PO (12:18)
[2022-12-07 12:19] LABS: Glucose, Whole Blood 129 mg/dL (60-115)
[2022-12-07] MEDS: Lactated Ringers 1,000 ML 50 ML IVCONT (14:39)
[2022-12-07 15:17] VITALS: BP 115/68; PULSE 80; RESP 20; TEMP 36.7; O2SAT 98
[2022-12-07 16:30] LABS: Glucose, Whole Blood 130 mg/dL (60-115)
[2022-12-07 19:15] VITALS: BP 118/74; PULSE 93; RESP 20; TEMP 37.1; O2SAT 95
[2022-12-07 20:01] LABS: Glucose, Whole Blood 120 mg/dL (60-115)
[2022-12-07] MEDS: Insulin Glargine,Hum.rec.anlog 100 UNIT/ML 10 ML VIAL 8 UNIT SUBCUT (20:10)
[2022-12-07 23:52] VITALS: BP 137/66; PULSE 90; RESP 20; TEMP 36.1; O2SAT 93
[2022-12-08] VITALS (12 sets, daily range): BP systolic 97–159; BP diastolic 33–81; PULSE 88–118; RESP 14–20; TEMP 36.3–37.3; O2SAT 83–98
[2022-12-08] MEDS: 0.9 % Sodium Chloride Flush 3 ML SYRINGE IVFLUSH (00:18)
--- NOTE | 2022-12-08 08:26 | PM.PNORT ---
Subjective Subjective Date of Service: 12/08/22 Interval history: Patient is resting comfortably in bed. No overnight events. Splint is c/d/i. Pain is well managed. No additional complaints. Physical Exam Vital Signs: Vital Signs: Last Vital Signs Temp 99.1 F 12/08/22 08:00 Pulse 96 12/08/22 08:00 Resp 20 12/08/22 08:00 BP 136/63 12/08/22 08:00 Pulse Ox 96 12/08/22 08:00 O2 Del Method Room Air 12/08/22 08:00 BMI result Body Mass Index 44.4 Const: General: cooperative, healthy appearing and no acute distress Resp: Effort & Inspection: normal respiratory effort and able to speak in complete sentences Cardio: Rate: regular rate Peripheral pulses: Peripheral pulses 2+ throughout GI: Palpation (GI): Soft to palpation Skin: Lesions: no lesions Rashes: no rashes Extrem: Other: Left lower extremity: Splint is c/d/i. Able to move all digits. Sensation intact. Capillary refill is brisk. Edema is mild-moderate and continues to improve. Left upper extremity: Able to perform full finger flexion, extension, abduction, adduction, finger cross, ok sign, and thumbs up without deficits. Able to perform wrist flexion and extension. Sensation intact. Radial pulse intact. Capillary refill is brisk. Procedures Date of Service Date of Service: 12/08/22 Progress Note: A&P Assessment and plan (1) Fall: Status: Acute (2) Displaced comminuted fracture of shaft of left tibia, initial encounter for closed fracture: Status: Acute Assessment and Plan: Remain NPO OR for left tibia ORIF Cont. pain management Keep splint c/d/i Strict elevation on three pillows above heart level (3) Displaced fracture of distal end of fibula: Status: Acute (4) Closed comminuted fracture of left humerus: Status: Acute (5) Obesity due to excess calories: Status: Acute (6) Morbid obesity: Status: Acute (7) Diabetic polyneuropathy associated with type 2 diabetes mellitus: Status: Acute (8) Diabetes type 2, uncontrolled: Status: Acute Time Spent With Patient Time: Total time managing care of this patient today ____ minutes. Quality Stroke Does the patient have a stroke diagnosis?: No VTE Prior VTE?: No VTE Risk Level:: Medical - moderate - high VTE Device Contraindication: Treatment Not Indicated VTE Drug Contraindication: N/A - Med Ordered
[2022-12-08 08:29] LABS: Glucose, Whole Blood 125 mg/dL (60-115)
[2022-12-08 09:21] LABS: Hematocrit 29.3 % (37.0-47.0); Hemoglobin 9.9 g/dl (12.0-16.0); Mean Corpuscular HGB Conc 33.8 g/dl (31.0-35.0); Mean Corpuscular Hemoglobin 28.1 pg (27.0-33.0); Mean Corpuscular Volume 83.2 fL (80.0-98.0); Mean Platelet Volume 11.8 fL (9.4-12.3); Platelet Count 153 X10*3/uL (160-400); Red Blood Count 3.52 X10*6/uL (4.20-5.50); Red Cell Distribution Width 13.9 % (11.0-16.0); White Blood Count 8.8 X10*3/uL (4.8-10.8)
[2022-12-08] MEDS: oxyCODONE HCl Immed Release 5 MG TABLET PO (09:49)
[2022-12-08 11:40] LABS: Glucose, Whole Blood 110 mg/dL (60-115)
--- NOTE | 2022-12-08 14:07 | P.PNIM_ITS ---
Subjective Subjective Date of Service: 12/08/22 Interval History: Resting comfortably in bed good pain control NPO for left tibial surgery, no bowel movement in last 48 hours, denies nausea vomiting, no abdominal discomfort no other acute issues overnight denies chest pain, no shortness of breath, no palpitations. Review of Systems Review of Systems: Yes all other systems are reviewed and are negative Physical Exam Vital Signs: Vital Signs: Last Vital Signs Temp 98.9 F 12/08/22 11:54 Pulse 92 12/08/22 11:54 Resp 20 12/08/22 11:54 BP 130/61 12/08/22 11:54 Pulse Ox 95 12/08/22 11:54 O2 Del Method Room Air 12/08/22 11:54 BMI result Body Mass Index 44.4 Objective Data Active Medications Acetaminophen (Acetaminophen 325 Mg Tablet) 650 mg PO Q6H PRN PRN Reason: Pain, Mild (Pain Scale 1-3) Last Admin: 12/05/22 14:59 Dose: 650 mg Documented By: ROSENDO Atorvastatin Calcium (Atorvastatin Calcium 80 Mg Tablet) 80 mg PO DAILY [facility] Last Admin: 12/08/22 08:29 Dose: Not Given Documented By: HEMANTH Non-Admin Reason: NPO Calcium Carbonate/Cholecalciferol (Calcium + Vitamin D 250 Mg Tablet) 500 mg PO BID [facility] Last Admin: 12/08/22 08:29 Dose: Not Given Documented By: HEMANTH Non-Admin Reason: NPO Docusate Sodium (Docusate Sodium 100 Mg Capsule) 200 mg PO DAILY [facility] Last Admin: 12/08/22 08:29 Dose: Not Given Documented By: HEMANTH Non-Admin Reason: NPO Enoxaparin Sodium (Enoxaparin Sodium 40 Mg/0.4 Ml Syringe) 40 mg SUBCUT Q24H [facility] Last Admin: 12/08/22 08:29 Dose: Not Given Documented By: HEMANTH Non-Admin Reason: Surgery today Escitalopram Oxalate (Escitalopram Oxalate 20 Mg Tablet) 20 mg PO DAILY [facility] Last Admin: 12/08/22 08:29 Dose: Not Given Documented By: HEMANTH Non-Admin Reason: NPO Glucose (Glucose Gel 15 Gm Gel..Gram.) 15 gm PO Q15M PRN; Protocol PRN Reason: per Hypoglycemia Standing Ord. Dextrose (D10) 250 mls @ 750 mls/hr IV Q15M PRN; Protocol PRN Reason: per Hypoglycemia Standing Ord. Insulin Glargine (Insulin Glargine,Hum.Rec.Anlog 100 Unit/Ml 10 Ml Vial) 8 unit SUBCUT BEDTIME [facility] Last Admin: 12/07/22 20:10 Dose: 8 unit Documented By: RADHA Insulin Human Lispro (Insulin Lispro 100 Unit/Ml 3 Ml Vial) 0.1 - 10 unit SUBCUT QIDACHS [facility]; Protocol Last Admin: 12/08/22 11:24 Dose: Not Given Documented By: HEMANTH Non-Admin Reason: No Insulin Coverage Insulin Human Lispro (Insulin Lispro 100 Unit/Ml 3 Ml Vial) 8 unit SUBCUT TIDAC [facility] Last Admin: 12/08/22 07:51 Dose: Not Given Documented By: HEMANTH Non-Admin Reason: Physician Held Med Meclizine HCl (Meclizine Hcl 25 Mg Tablet) 25 mg PO DAILY PRN PRN Reason: dizziness Morphine Sulfate (Morphine Sulfate 4 Mg/Ml Cartridge) 4 mg IVPUSH Q4H PRN; Protocol PRN Reason: Pain, Severe (Pain Scale 7-10) Last Admin: 12/06/22 00:49 Dose: 4 mg Documented By: NEMO Ondansetron HCl (Ondansetron Hcl 4 Mg/2 Ml Vial) 4 mg IVPUSH Q8H PRN PRN Reason: Nausea and Vomiting Oxycodone HCl (Oxycodone Hcl Immed Release 5 Mg Tablet) 5 mg PO Q4H PRN PRN Reason: Pain, Moderate (Pain Scale 4-6 Last Admin: 12/08/22 09:49 Dose: 5 mg Documented By: HEMANTH Oxycodone HCl (Oxycodone Hcl Er 10 Mg Tab.Er.12h) 10 mg PO BID [facility] Last Admin: 12/08/22 08:29 Dose: Not Given Documented By: HEMANTH Non-Admin Reason: NPO Pharmacy Consult (Consult Rx Perform Med Rec) 1 each MISCELLANE ONCE PRN PRN Reason: Consult order Polyethylene Glycol (Polyethylene Glycol 3350 17 Gm Powd.Pack) 17 gm PO DAILY [facility] Last Admin: 12/08/22 08:30 Dose: Not Given Documented By: HEMANTH Non-Admin Reason: NPO Sodium Chloride (0.9 % Sodium Chloride Flush 3 Ml Syringe) 3 ml IVFLUSH QSHIFT [facility] Last Admin: 12/08/22 08:30 Dose: Not Given Documented By: HEMANTH Non-Admin Reason: IV Running Labs 12/08/22 09:03 12/05/22 05:41 Labs: Laboratory Results - last 24 hr 12/07/22 12/07/22 12/08/22 16:22 19:54 08:04 MCV MCH MCHC RDW Plt Count MPV Absolute Nucleated RBC Nucleated RBC % (auto) POC Glucose 130 H 120 H 125 H 12/08/22 12/08/22 09:03 11:10 MCV 83.2 MCH 28.1 MCHC 33.8 RDW 13.9 Plt Count 153 L D MPV 11.8 Absolute Nucleated RBC 0.000 Nucleated RBC % (auto) 0.0 POC Glucose 110 Assessment and Plan (1) Closed comminuted fracture of left humerus: Status: Acute (2) Obesity due to excess calories: Status: Acute Plan 72-year-old female past medical history of diabetes, hypertension, HLD presents to the hospital with complaints of fall found to have multiple fractures # Multiple acute fractures including discussed placed community to fracture of left tibia, displaced fracture of distal end of fibula, and close communicated fracture of left humerus - seen by Orthopedic surgery in regard to left proximal humeral fracture they r ecommend sling for comfort, non weight bearing left upper extremity and gentle elbow hand and wrist range of motion ? surgery for fixation of left tibia is scheduled for today ? Good pain control on OxyContin 10 mg b.i.d. and as needed oxycodone, continue stool softeners ? upper extremity in a sling Hematocrit dropped significantly no active bleeding noted, no hematemesis, no melena,? dilutional/or bleeding at site of fracture, will follow CBC, check stool guaiac,add gi prophylaxis # Mild leukocytosis likely due to fracture resolved. # diabetes mellitus on insulin- blood sugars improving, hemoglobin A1c 11.1 continue basal and bolus insulin and diabetic diet,. dose of basal insulin red uced to 50% due to surgery, follow blood sugar closely. # HLD - continue Lipitor at home takes Crestor # morbid obesity recommend low calorie diet # obstructive sleep apnea use CPAP has own machine. DVT prophylaxis:?lovenox subQ Given patient's multiple fractures requiring intravenous pain medication and surgery patient will require continued inpatient hospital stay Time Spent With Patient Time: Total time managing care of this patient today ____ minutes. Quality Stroke Does the patient have a stroke diagnosis?: No VTE Prior VTE?: No VTE Risk Level:: Medical - moderate - high VTE Device Contraindication: Treatment Not Indicated VTE Drug Contraindication: N/A - Med Ordered
--- NOTE | 2022-12-08 14:16 | MHC.SHP ---
Pre-Procedural Eval Section A Date of Service: 12/08/22 The patient is an INPATIENT: Yes Changes since office visit: No Cold of Flu in the past 2 weeks, No New Medical Problems, No Changes in Medication and No Patient answered all questions The History & Physical has been completed within 30 days and I have reviewed it.: Yes Section B Chief Complaint: fibular and humeral fx Allergies: Allergies Allergy/AdvReac Type Severity Reaction Status Date / Time seasonal Allergy Intermediate cough Uncoded 09/16/22 10:39 Plan I have reviewed the history and physical and performed a pertinent physical examination on my patient. No changes have occurred unless specified. Time Spent With Patient Time: Total time managing care of this patient today ____ minutes.
[2022-12-08 14:38] LABS: Glucose, Whole Blood 107 mg/dL (60-115)
--- NOTE | 2022-12-08 15:01 | P.CONAN_ITS ---
HPI - Anesthesia Eval Consult details Narrative: fall broken left tibia,fibula and humerous PMFSH Active Problems Active Problems: All Active Problems (Updated 12/08/22 @ 14:48 by Deann Narvaez, RN) Primary osteoarthritis involving multiple joints (Acute) Vitamin A deficiency (Acute) Trigger finger, right middle finger (Acute) Numbness and tingling in both hands (Acute) Abdominal bloating (Acute) GERD (gastroesophageal reflux disease) (Acute) Chronic idiopathic constipation (Acute) Hip pain (Acute) Osteoarthritis of left hip (Acute) Carpal tunnel syndrome of right wrist (Acute) Epigastric pain (Acute) Morbid obesity (Acute) Numbness of left hand (Acute) Right hand pain (Acute) Trigger finger, right index finger (Acute) Bilateral primary osteoarthritis of knee (Acute) Bilateral hand numbness (Acute) Status post sleeve gastrectomy (Acute) Fall (Acute) Displaced comminuted fracture of shaft of left tibia, initial encounter for closed fracture (Acute) Displaced fracture of distal end of fibula (Acute) Closed comminuted fracture of left humerus (Acute) Obesity due to excess calories (Acute) Asthma (Acute) REY (obstructive sleep apnea) (Acute) Vitamin D deficiency (Acute) Obesity (Acute) Dyslipidemia (Acute) Hypertension (Acute) Diabetic polyneuropathy associated with type 2 diabetes mellitus (Acute) Diabetes type 2, uncontrolled (Acute) Past Medical History Medical History (Updated 12/08/22 @ 14:48 by Deann Narvaez, RN) Anxiety Asthma Diabetes type 2, uncontrolled Diabetic polyneuropathy associated with type 2 diabetes mellitus Dyslipidemia Hypertension Morbid obesity Obesity Obesity due to excess calories REY (obstructive sleep apnea) Panic attack Vitamin D deficiency Family History Family History Father Type II diabetes mellitus Obesity Mother HTN (hypertension) Brother Cancer Family history of problems with anesthesia: No Surgical History Surgical History H/O foot surgery History of carpal tunnel release History of dilatation and curettage History of esophagogastroduodenoscopy (EGD) History of eyelid surgery History of sleeve gastrectomy Hx of colonoscopy Hx of tubal ligation S/P trigger finger release History of Problems with Anesthesia: No Social History Social History Household Members: Spouse Housing: Apartment Do you presently have visiting nurse or other home services: Yes Alcohol intake: never Patient Tobacco Use Status: Former Tobacco user Quit Date: >30 yrs ago Tobacco use type: Cigarette e-Cigarette/Vaping Use: Never Used service: No Current occupational status: unemployed Current occupation: rt handed Meds Allergies Allergy/AdvReac Type Severity Reaction Status Date / Time seasonal Allergy Intermediate cough Uncoded 09/16/22 10:39 Active Medications: Current Medications Acetaminophen (Acetaminophen 325 Mg Tablet) 650 mg PO Q6H PRN PRN Reason: Pain, Mild (Pain Scale 1-3) Last Admin: 12/05/22 14:59 Dose: 650 mg Atorvastatin Calcium (Atorvastatin Calcium 80 Mg Tablet) 80 mg PO DAILY [facility] Last Admin: 12/08/22 08:29 Dose: Not Given Calcium Carbonate/Cholecalciferol (Calcium + Vitamin D 250 Mg Tablet) 500 mg PO BID [facility] Last Admin: 12/08/22 08:29 Dose: Not Given Enoxaparin Sodium (Enoxaparin Sodium 40 Mg/0.4 Ml Syringe) 40 mg SUBCUT Q24H [facility] Last Admin: 12/08/22 08:29 Dose: Not Given Escitalopram Oxalate (Escitalopram Oxalate 20 Mg Tablet) 20 mg PO DAILY [facility] Last Admin: 12/08/22 08:29 Dose: Not Given Glucose (Glucose Gel 15 Gm Gel..Gram.) 15 gm PO Q15M PRN; Protocol PRN Reason: per Hypoglycemia Standing Ord. Dextrose (D10) 250 mls @ 750 mls/hr IV Q15M PRN; Protocol PRN Reason: per Hypoglycemia Standing Ord. Cefazolin Sodium/Dextrose (Ancef) 2 gm in 50 mls @ 100 mls/hr IV PREOP ONE Stop: 12/08/22 15:14 Insulin Glargine (Insulin Glargine,Hum.Rec.Anlog 100 Unit/Ml 10 Ml Vial) 8 unit SUBCUT BEDTIME [facility] Last Admin: 12/07/22 20:10 Dose: 8 unit Insulin Human Lispro (Insulin Lispro 100 Unit/Ml 3 Ml Vial) 0.1 - 10 unit SUBCUT QIDACHS [facility]; Protocol Last Admin: 12/08/22 11:24 Dose: Not Given Insulin Human Lispro (Insulin Lispro 100 Unit/Ml 3 Ml Vial) 8 unit SUBCUT TIDAC [facility] Last Admin: 12/08/22 07:51 Dose: Not Given Meclizine HCl (Meclizine Hcl 25 Mg Tablet) 25 mg PO DAILY PRN PRN Reason: dizziness Morphine Sulfate (Morphine Sulfate 4 Mg/Ml Cartridge) 4 mg IVPUSH Q4H PRN; Protocol PRN Reason: Pain, Severe (Pain Scale 7-10) Last Admin: 12/06/22 00:49 Dose: 4 mg Omeprazole (Omeprazole 20 Mg Capsule.Dr) 20 mg PO DAILY@0630 [facility] Ondansetron HCl (Ondansetron Hcl 4 Mg/2 Ml Vial) 4 mg IVPUSH Q8H PRN PRN Reason: Nausea and Vomiting Oxycodone HCl (Oxycodone Hcl Immed Release 5 Mg Tablet) 5 mg PO Q4H PRN PRN Reason: Pain, Moderate (Pain Scale 4-6 Last Admin: 12/08/22 09:49 Dose: 5 mg Oxycodone HCl (Oxycodone Hcl Er 10 Mg Tab.Er.12h) 10 mg PO BID [facility] Last Admin: 12/08/22 08:29 Dose: Not Given Pharmacy Consult (Consult Rx Perform Med Rec) 1 each MISCELLANE ONCE PRN PRN Reason: Consult order Polyethylene Glycol (Polyethylene Glycol 3350 17 Gm Powd.Pack) 17 gm PO DAILY [facility] Last Admin: 12/08/22 08:30 Dose: Not Given Senna/Docusate Sodium (Sennosides/Docusate Sodium Tablet) 1 tab PO BEDTIME [facility] Sodium Chloride (0.9 % Sodium Chloride Flush 3 Ml Syringe) 3 ml IVFLUSH QSHIFT [facility] Last Admin: 12/08/22 08:30 Dose: Not Given Home Medications Medication Instructions Recorded Confirmed Last Taken Type bolus insulin pump, 200 unit 2 12/04/22 12/04/22 Unknown History unit bolus insulin patch pump, 200 unit, disposable (CeQur Simplicity) calcium carbonate 600 mg-vitamin 1 tab PO Q12H 12/04/22 12/04/22 12/04/22 History D3 10 mcg (400 unit) tablet dulaglutide 1.5 mg/0.5 mL 1.5 mg subcut DEVRIES 12/04/22 12/04/22 11/30/22 History subcutaneous pen injector (Trulicity) escitalopram oxalate 20 mg tablet 20 mg PO DAILY 12/04/22 12/04/22 12/04/22 History insulin glargine 100 unit/mL (3 26 unit subcut BEDTIME 12/04/22 12/04/22 Unknown History mL) subcutaneous pen insulin lispro 100 unit/mL 8 unit subcut TID 12/04/22 12/04/22 12/04/22 History subcutaneous pen meclizine 25 mg tablet 25 mg PO DAILY PRN dizziness 12/04/22 12/04/22 12/04/22 History rosuvastatin 40 mg tablet 40 mg PO DAILY 12/04/22 12/04/22 12/04/22 History Exam Exam Date and Time: December 08, 2022 1501 Height,Weight and Vital Signs: Height 5 ft 2 in Weight 110.3 kg Last Vital Signs Temp 98.2 F 12/08/22 14:16 Pulse 94 12/08/22 14:16 Resp 18 12/08/22 14:16 BP 97/68 12/08/22 14:16 Pul,se Ox 96 12/08/22 14:16 O2 Del Method Room Air 12/08/22 14:16 Pertinent Lab Results Pertinent Lab Results: Laboratory Tests 12/04/22 12/04/22 12/04/22 18:28 19:07 19:07 WBC 12.5 H RBC 4.90 Hgb 13.5 Hct 40.6 MCV 82.9 MCH 27.6 MCHC 33.3 RDW 13.4 Plt Count 195 MPV 11.4 Immature Gran % (Auto) 0.3 Neut % (Auto) 80.9 H Lymph % (Auto) 12.9 L [place] % (Auto) 5.1 Eos % (Auto) 0.6 Baso % (Auto) 0.2 Lymph # (Auto) 1.6 [place] # (Auto) 0.6 Eos # (Auto) 0.1 Baso # (Auto) 0.0 Abs Immat Gran (auto) 0.04 H Absolute Neuts (auto) 10.1 H Absolute Nucleated RBC 0.000 Nucleated RBC % (auto) 0.0 PT INR Sodium 138 Potassium 4.9 Chloride 106 Carbon Dioxide 26 Anion Gap 11 L BUN 15 Creatinine 0.68 Estim Creat Clear Calc 90.1 Estimated GFR > 60 POC Glucose 184 H Random Glucose 223 H Calcium 9.1 Total Bilirubin 0.3 AST 24 ALT 26 Alkaline Phosphatase 68 Troponin I High Sens Total Protein 6.7 Albumin 3.6 Urine Color Urine Appearance Urine pH Ur Specific [place] Urine Protein Urine Glucose (UA) Urine Ketones Urine Blood Urine Nitrite Ur Leukocyte Esterase COVID-19 ([facility]) COVID-19 [facility] 12/04/22 12/04/22 12/05/22 19:07 19:07 00:02 WBC RBC Hgb Hct MCV MCH MCHC RDW Plt Count MPV Immature Gran % (Auto) Neut % (Auto) Lymph % (Auto) [place] % (Auto) Eos % (Auto) Baso % (Auto) Lymph # (Auto) [place] # (Auto) Eos # (Auto) Baso # (Auto) Abs Immat Gran (auto) Absolute Neuts (auto) Absolute Nucleated RBC Nucleated RBC % (auto) PT 12.8 INR 1.1 Sodium Potassium Chloride Carbon Dioxide Anion Gap BUN Creatinine Estim Creat Clear Calc Estimated GFR POC Glucose Random Glucose Calcium Total Bilirubin AST ALT Alkaline Phosphatase Troponin I High Sens < 2.7 Total Protein Albumin Urine Color Urine Appearance Urine pH Ur Specific [place] Urine Protein Urine Glucose (UA) Urine Ketones Urine Blood Urine Nitrite Ur Leukocyte Esterase COVID-19 ([place]) Negative COVID-19 [facility] See Note 12/05/22 12/05/22 12/05/22 05:41 05:41 07:06 WBC 12.1 H RBC 4.33 Hgb 12.0 Hct 35.6 L MCV 82.2 MCH 27.7 MCHC 33.7 RDW 13.4 Plt Count 211 MPV 11.3 Immature Gran % (Auto) 0.3 Neut % (Auto) 83.2 H Lymph % (Auto) 10.8 L [place] % (Auto) 5.5 Eos % (Auto) 0.0 Baso % (Auto) 0.2 Lymph # (Auto) 1.3 [place] # (Auto) 0.7 Eos # (Auto) 0.0 Baso # (Auto) 0.0 Abs Immat Gran (auto) 0.04 H Absolute Neuts (auto) 10.1 H Absolute Nucleated RBC 0.000 Nucleated RBC % (auto) 0.0 PT INR Sodium 139 Potassium 4.7 Chloride 107 Carbon Dioxide 21 L Anion Gap 16 BUN 24 H Creatinine 0.68 Estim Creat Clear Calc 90.1 Estimated GFR > 60 POC Glucose 182 H Random Glucose 200 H Calcium 8.8 Total Bilirubin AST ALT Alkaline Phosphatase Troponin I High Sens Total Protein Albumin Urine Color Urine Appearance Urine pH Ur Specific [place] Urine Protein Urine Glucose (UA) Urine Ketones Urine Blood Urine Nitrite Ur Leukocyte Esterase COVID-19 ([place]) COVID-19 [facility] 12/05/22 12/05/22 12/05/22 11:32 14:30 15:14 WBC RBC Hgb Hct MCV MCH MCHC RDW Plt Count MPV Immature Gran % (Auto) Neut % (Auto) Lymph % (Auto) [place] % (Auto) Eos % (Auto) Baso % (Auto) Lymph # (Auto) [place] # (Auto) Eos # (Auto) Baso # (Auto) Abs Immat Gran (auto) Absolute Neuts (auto) Absolute Nucleated RBC Nucleated RBC % (auto) PT INR Sodium Potassium Chloride Carbon Dioxide Anion Gap BUN Creatinine Estim Creat Clear Calc Estimated GFR POC Glucose 143 H 264 H Random Glucose Calcium Total Bilirubin AST ALT Alkaline Phosphatase Troponin I High Sens Total Protein Albumin Urine Color Dark Yellow Urine Appearance Cloudy Urine pH 5.5 Ur Specific [place] >= 1.030 H Urine Protein Trace Urine Glucose (UA) 500 H Urine Ketones Negative Urine Blood Negative Urine Nitrite Negative Ur Leukocyte Esterase Negative COVID-19 ([place]) COVID-19 [facility] 12/05/22 12/06/22 12/06/22 19:56 07:54 11:47 WBC RBC Hgb Hct MCV MCH MCHC RDW Plt Count MPV Immature Gran % (Auto) Neut % (Auto) Lymph % (Auto) [place] % (Auto) Eos % (Auto) Baso % (Auto) Lymph # (Auto) [place] # (Auto) Eos # (Auto) Baso # (Auto) Abs Immat Gran (auto) Absolute Neuts (auto) Absolute Nucleated RBC Nucleated RBC % (auto) PT INR Sodium Potassium Chloride Carbon Dioxide Anion Gap BUN Creatinine Estim Creat Clear Calc Estimated GFR POC Glucose 149 H 147 H 173 H Random Glucose Calcium Total Bilirubin AST ALT Alkaline Phosphatase Troponin I High Sens Total Protein Albumin Urine Color Urine Appearance Urine pH Ur Specific [place] Urine Protein Urine Glucose (UA) Urine Ketones Urine Blood Urine Nitrite Ur Leukocyte Esterase COVID-19 ([place]) COVID-19 [facility] 12/06/22 12/06/22 12/07/22 16:54 20:27 08:24 WBC RBC Hgb Hct MCV MCH MCHC RDW Plt Count MPV Immature Gran % (Auto) Neut % (Auto) Lymph % (Auto) [place] % (Auto) Eos % (Auto) Baso % (Auto) Lymph # (Auto) [place] # (Auto) Eos # (Auto) Baso # (Auto) Abs Immat Gran (auto) Absolute Neuts (auto) Absolute Nucleated RBC Nucleated RBC % (auto) PT INR Sodium Potassium Chloride Carbon Dioxide Anion Gap BUN Creatinine Estim Creat Clear Calc Estimated GFR POC Glucose 155 H 111 178 H Random Glucose Calcium Total Bilirubin AST ALT Alkaline Phosphatase Troponin I High Sens Total Protein Albumin Urine Color Urine Appearance Urine pH Ur Specific [place] Urine Protein Urine Glucose (UA) Urine Ketones Urine Blood Urine Nitrite Ur Leukocyte Esterase COVID-19 ([place]) COVID-19 [facility] 12/07/22 12/07/22 12/07/22 11:50 16:22 19:54 WBC RBC Hgb Hct MCV MCH MCHC RDW Plt Count MPV Immature Gran % (Auto) Neut % (Auto) Lymph % (Auto) [place] % (Auto) Eos % (Auto) Baso % (Auto) Lymph # (Auto) [place] # (Auto) Eos # (Auto) Baso # (Auto) Abs Immat Gran (auto) Absolute Neuts (auto) Absolute Nucleated RBC Nucleated RBC % (auto) PT INR Sodium Potassium Chloride Carbon Dioxide Anion Gap BUN Creatinine Estim Creat Clear Calc Estimated GFR POC Glucose 129 H 130 H 120 H Random Glucose Calcium Total Bilirubin AST ALT Alkaline Phosphatase Troponin I High Sens Total Protein Albumin Urine Color Urine Appearance Urine pH Ur Specific [place] Urine Protein Urine Glucose (UA) Urine Ketones Urine Blood Urine Nitrite Ur Leukocyte Esterase COVID-19 ([place]) COVID-19 [facility] 12/08/22 12/08/22 12/08/22 08:04 09:03 11:10 WBC 8.8 RBC 3.52 L Hgb 9.9 L Hct 29.3 L MCV 83.2 MCH 28.1 MCHC 33.8 RDW 13.9 Plt Count 153 L D MPV 11.8 Immature Gran % (Auto) Neut % (Auto) Lymph % (Auto) [place] % (Auto) Eos % (Auto) Baso % (Auto) Lymph # (Auto) [place] # (Auto) Eos # (Auto) Baso # (Auto) Abs Immat Gran (auto) Absolute Neuts (auto) Absolute Nucleated RBC 0.000 Nucleated RBC % (auto) 0.0 PT INR Sodium Potassium Chloride Carbon Dioxide Anion Gap BUN Creatinine Estim Creat Clear Calc Estimated GFR POC Glucose 125 H 110 Random Glucose Calcium Total Bilirubin AST ALT Alkaline Phosphatase Troponin I High Sens Total Protein Albumin Urine Color Urine Appearance Urine pH Ur Specific [place] Urine Protein Urine Glucose (UA) Urine Ketones Urine Blood Urine Nitrite Ur Leukocyte Esterase COVID-19 ([place]) COVID-19 [facility] 12/08/22 14:24 WBC RBC Hgb Hct MCV MCH MCHC RDW Plt Count MPV Immature Gran % (Auto) Neut % (Auto) Lymph % (Auto) [place] % (Auto) Eos % (Auto) Baso % (Auto) Lymph # (Auto) [place] # (Auto) Eos # (Auto) Baso # (Auto) Abs Immat Gran (auto) Absolute Neuts (auto) Absolute Nucleated RBC Nucleated RBC % (auto) PT INR Sodium Potassium Chloride Carbon Dioxide Anion Gap BUN Creatinine Estim Creat Clear Calc Estimated GFR POC Glucose 107 Random Glucose Calcium Total Bilirubin AST ALT Alkaline Phosphatase Troponin I High Sens Total Protein Albumin Urine Color Urine Appearance Urine pH Ur Specific [place] Urine Protein Urine Glucose (UA) Urine Ketones Urine Blood Urine Nitrite Ur Leukocyte Esterase COVID-19 ([place]) COVID-19 Clin Com Airway Mallampati Class: II TM Dist: <=3cm Neck ROM: Full Heart: rr Lungs: cta Assessment and Plan Assessment Anesthesia Assessment: Anesthesia Plan Discussed and Chart Reviewed Final Anesthetic Review Family History of Problems with Anesthesia: No History of Problems with Anesthesia: No NPO: Yes ASA Class: II Final Preanesthetic Review: No Changes in Pt Med Stat, Meds/Allgs Chart Reviewed, Consent Obtained/Reviewed and Anes Risks/Benef Reviewed Patient Risk: Intermediate Procedure Risk: Intermediate Anesthetic Plan Anesthetic Plan: GA Disposition: Standard PACU
--- NOTE | 2022-12-08 15:08 | MHC.CM.PN ---
EMR reviewed, D/C plan pending PT eval. CM will continue to follow.
--- NOTE | 2022-12-08 19:21 | P.BOP_ITS ---
Brief Operative Note Date of Service: 12/08/22 Pre-op diagnosis: Left tibial plateau fracture and left tibial shaft fracture Post-op diagnosis: same Procedure: ORIF left tibial plateau and left tibial shaft fracture Implants: Elder 16 hole lateral locking plate Surgeon: Doc Cortez MD Anesthesia: GETA and local Was an [employer] used for this Procedure?: No Estimated blood loss (mL): 200 Tourniquet time (min): 129 IV fluids (mL): 1,500 Pathology: none sent Condition: stable Disposition: PACU
[2022-12-08 20:54] LABS: Glucose, Whole Blood 210 mg/dL (60-115)
[2022-12-08 20:57] LABS: Glucose, Whole Blood 209 mg/dL (60-115)
[2022-12-08] MEDS: Insulin Glargine,Hum.rec.anlog 100 UNIT/ML 10 ML VIAL 8 UNIT SUBCUT (21:40)
[2022-12-09] MEDS: ceFAZolin Sodium/Dextrose,Iso 2 GM/50 ML PIGGYBACK IV (02:10)
[2022-12-09] MEDS: 0.9 % Sodium Chloride Flush 3 ML SYRINGE IVFLUSH (02:11)
[2022-12-09] MEDS: Morphine Sulfate 4 MG/ML CARTRIDGE IVPUSH (02:13)
[2022-12-09 03:11] VITALS: BP 158/73; PULSE 103; RESP 20; TEMP 36.6; O2SAT 89
[2022-12-09] MEDS: HYDROmorphone HCl 0.5 MG/0.5 ML SYRINGE 0.25 MG IVPUSH (05:23)
[2022-12-09] MEDS: Omeprazole 20 MG CAPSULE.DR PO (05:24)
[2022-12-09 07:05] LABS: Hematocrit 29.1 % (37.0-47.0); Hemoglobin 9.5 g/dl (12.0-16.0); Mean Corpuscular HGB Conc 32.6 g/dl (31.0-35.0); Mean Corpuscular Hemoglobin 27.6 pg (27.0-33.0); Mean Corpuscular Volume 84.6 fL (80.0-98.0); Mean Platelet Volume 11.7 fL (9.4-12.3); Platelet Count 175 X10*3/uL (160-400); Red Blood Count 3.44 X10*6/uL (4.20-5.50); Red Cell Distribution Width 13.9 % (11.0-16.0)
[2022-12-09 07:20] VITALS: BP 139/69; PULSE 76; RESP 16; TEMP 37.1; O2SAT 94
[2022-12-09 07:25] LABS: Anion Gap 11 (12-20); Blood Urea Nitrogen 15 mg/dL (9-16); Calcium 8.2 mg/dL (8.4-10.2); Carbon Dioxide 27 mmol/L (22-29); Chloride 102 mmol/L (96-108); Creatinine Clr Calc Pharmacy 103.9; Estimated Glomerular Filt Rate > 60; Glucose Random 169 mg/dL (60-115); Potassium 4.4 mmol/L (3.3-5.1); Sodium 136 mmol/L (135-145)
[2022-12-09 07:33] LABS: Glucose, Whole Blood 169 mg/dL (60-115)
--- NOTE | 2022-12-09 07:47 | P.PNOP_ITS ---
Subjective Subjective Date of Service: 12/09/22 Interval history: POD 1 s/p ORIF left tibia No overnight events resting in bed, brace intact. no concerns Physical Exam Vital Signs: Vital Signs: Last Vital Signs Temp 98.7 F 12/09/22 07:20 Pulse 76 12/09/22 07:20 Resp 16 12/09/22 07:20 BP 139/69 12/09/22 07:20 Pulse Ox 94 12/09/22 07:20 O2 Del Method Nasal Cannula 12/09/22 07:20 O2 Flow Rate 3 12/09/22 07:20 BMI result Body Mass Index 44.4 Const: General: cooperative, healthy appearing and no acute distress Resp: Effort & Inspection: normal respiratory effort and able to speak in complete sentences Cardio: Rate: regular rate Peripheral pulses: Peripheral pulses 2+ throughout GI: Palpation (GI): Soft to palpation Skin: General skin exam: no rashes or lesions noted Extrem: Other: Left knee brace and bandage intact. Sensation and pulses present. Compartments soft. Procedures Date of Service Date of Service: 12/09/22 Progress Note: A&P Assessment and plan (1) Displaced comminuted fracture of shaft of left tibia, initial encounter for closed fracture: Status: Acute Assessment and Plan: * Continue pain mgmnt * Begin lovenox for dvt ppx * begin PT for LT ORIF tibia - NWB LLE, NWB ROM * Dispo planning-Pending PT eval, pain mgmnt Time Spent With Patient Time: Total time managing care of this patient today ____ minutes. Quality Stroke Does the patient have a stroke diagnosis?: No VTE Prior VTE?: No VTE Risk Level:: Medical - moderate - high VTE Device Contraindication: Treatment Not Indicated VTE Drug Contraindication: N/A - Med Ordered
[2022-12-09] MEDS: Enoxaparin Sodium 40 MG/0.4 ML SYRINGE SUBCUT (08:05)
[2022-12-09] MEDS: Calcium + Vitamin D 250 MG TABLET 500 MG PO ×2 (08:05→21:55)
[2022-12-09] MEDS: Atorvastatin Calcium 80 MG TABLET PO (08:05)
[2022-12-09] MEDS: Escitalopram Oxalate 20 MG TABLET PO (08:05)
[2022-12-09] MEDS: oxyCODONE HCl ER 10 MG TAB.ER.12H PO ×2 (08:05→21:56)
[2022-12-09] MEDS: Insulin Lispro 100 UNIT/ML 3 ML VIAL SUBCUT ×3 (08:06→22:01)
[2022-12-09] MEDS: Insulin Lispro 100 UNIT/ML 3 ML VIAL 8 UNIT SUBCUT ×2 (08:06→16:22)
[2022-12-09 08:31] VITALS: BP 139/69; PULSE 76; O2SAT 94
--- NOTE | 2022-12-09 11:38 | P.PNIM_ITS ---
Subjective Subjective Date of Service: 12/09/22 Interval History: f/u post left tibia plateau fracture repair, hs 710 pain Physical Exam 2 Vital Signs: Vital Signs: Last Vital Signs Temp 98.7 F 12/09/22 07:20 Pulse 76 12/09/22 08:31 Resp 16 12/09/22 07:20 BP 139/69 12/09/22 08:31 Pulse Ox 94 12/09/22 08:31 O2 Del Method Nasal Cannula 12/09/22 07:20 O2 Flow Rate 3 12/09/22 07:20 BMI result Body Mass Index 44.4 Const: Other: General: AO X 3, no acute distress Resp: CTA bilateral CVS: S1,S2,RRR GI: +BS, NT, no distention Skin: No rash Neuro: motor grossly intact MSK: right knee imobilzer in place Psych: appropriate affect Objective Data Active Medications Acetaminophen (Acetaminophen 325 Mg Tablet) 650 mg PO Q6H PRN PRN Reason: Pain, Mild (Pain Scale 1-3) Last Admin: 12/05/22 14:59 Dose: 650 mg Documented By: ROSENDO Atorvastatin Calcium (Atorvastatin Calcium 80 Mg Tablet) 80 mg PO DAILY [facility] Last Admin: 12/09/22 08:05 Dose: 80 mg Documented By: HYUN Calcium Carbonate/Cholecalciferol (Calcium + Vitamin D 250 Mg Tablet) 500 mg PO BID [facility] Last Admin: 12/09/22 08:05 Dose: 500 mg Documented By: HYUN Enoxaparin Sodium (Enoxaparin Sodium 40 Mg/0.4 Ml Syringe) 40 mg SUBCUT Q24H [facility] Last Admin: 12/09/22 08:05 Dose: 40 mg Documented By: HYUN Escitalopram Oxalate (Escitalopram Oxalate 20 Mg Tablet) 20 mg PO DAILY [facility] Last Admin: 12/09/22 08:05 Dose: 20 mg Documented By: HYUN Glucose (Glucose Gel 15 Gm Gel..Gram.) 15 gm PO Q15M PRN; Protocol PRN Reason: per Hypoglycemia Standing Ord. Hydromorphone HCl (Hydromorphone Hcl 0.5 Mg/0.5 Ml Syringe) 0.25 mg IVPUSH Q5M PRN; Protocol PRN Reason: Pain, Severe (Pain Scale 7-10) Last Admin: 12/09/22 05:23 Dose: 0.25 mg Documented By: KAT Dextrose (D10) 250 mls @ 750 mls/hr IV Q15M PRN; Protocol PRN Reason: per Hypoglycemia Standing Ord. Promethazine HCl 12.5 mg/ (Sodium Chloride) 50.5 mls @ 202 mls/hr IV ONCE PRN PRN Reason: Nausea and Vomiting Insulin Glargine (Insulin Glargine,Hum.Rec.Anlog 100 Unit/Ml 10 Ml Vial) 8 unit SUBCUT BEDTIME [facility] Last Admin: 12/08/22 21:40 Dose: 8 unit Documented By: KAT Insulin Human Lispro (Insulin Lispro 100 Unit/Ml 3 Ml Vial) 0.1 - 10 unit SUBCUT QIDACHS [facility]; Protocol Last Admin: 12/09/22 08:06 Dose: 2 unit Documented By: HYUN Insulin Human Lispro (Insulin Lispro 100 Unit/Ml 3 Ml Vial) 8 unit SUBCUT TIDAC [facility] Last Admin: 12/09/22 08:06 Dose: 8 unit Documented By: HYUN Meclizine HCl (Meclizine Hcl 25 Mg Tablet) 25 mg PO DAILY PRN PRN Reason: dizziness Morphine Sulfate (Morphine Sulfate 4 Mg/Ml Cartridge) 4 mg IVPUSH Q4H PRN; Protocol PRN Reason: Pain, Severe (Pain Scale 7-10) Last Admin: 12/09/22 02:13 Dose: 4 mg Documented By: KAT Omeprazole (Omeprazole 20 Mg Capsule.) 20 mg PO DAILY@0630 [facility] Last Admin: 12/09/22 05:24 Dose: 20 mg Documented By: KAT Ondansetron HCl (Ondansetron Hcl 4 Mg/2 Ml Vial) 4 mg IVPUSH Q8H PRN PRN Reason: Nausea and Vomiting Ondansetron HCl (Ondansetron Hcl 4 Mg/2 Ml Vial) 4 mg IVPUSH ONCE PRN PRN Reason: Nausea and Vomiting Oxycodone HCl (Oxycodone Hcl Immed Release 5 Mg Tablet) 5 mg PO Q4H PRN PRN Reason: Pain, Moderate (Pain Scale 4-6 Last Admin: 12/08/22 09:49 Dose: 5 mg Documented By: HEMANTH Oxycodone HCl (Oxycodone Hcl Er 10 Mg Tab.Er.12h) 10 mg PO BID [facility] Last Admin: 12/09/22 08:05 Dose: 10 mg Documented By: HYUN Pharmacy Consult (Consult Rx Perform Med Rec) 1 each MISCELLANE ONCE PRN PRN Reason: Consult order Polyethylene Glycol (Polyethylene Glycol 3350 17 Gm Powd.Pack) 17 gm PO DAILY [facility] Last Admin: 12/09/22 08:06 Dose: Not Given Documented By: HYUN Non-Admin Reason: Patient Refused Senna/Docusate Sodium (Sennosides/Docusate Sodium Tablet) 1 tab PO BEDTIME [facility] Last Admin: 12/08/22 21:41 Dose: Not Given Documented By: KAT Non-Admin Reason: Patient Asleep Sodium Chloride (0.9 % Sodium Chloride Flush 3 Ml Syringe) 3 ml IVFLUSH QSHIFT [facility] Last Admin: 12/09/22 07:26 Dose: Not Given Documented By: HYUN Non-Admin Reason: See Note Labs 12/09/22 06:31 12/09/22 06:31 Labs: Laboratory Results - last 24 hr 12/08/22 12/08/22 12/08/22 11:10 14:24 15:02 MCV MCH MCHC RDW Plt Count MPV Absolute Nucleated RBC Nucleated RBC % (auto) Anion Gap Estim Creat Clear Calc Estimated GFR POC Glucose 110 107 Random Glucose Calcium Blood Type A Positive Antibody Screen NEGATIVE 12/08/22 12/08/22 12/09/22 19:37 20:44 06:31 MCV 84.6 MCH 27.6 MCHC 32.6 RDW 13.9 Plt Count 175 MPV 11.7 Absolute Nucleated RBC 0.000 Nucleated RBC % (auto) 0.0 Anion Gap Estim Creat Clear Calc Estimated GFR POC Glucose 209 H 210 H Random Glucose Calcium Blood Type Antibody Screen 12/09/22 12/09/22 06:31 07:23 MCV MCH MCHC RDW Plt Count MPV Absolute Nucleated RBC Nucleated RBC % (auto) Anion Gap 11 L Estim Creat Clear Calc 103.9 Estimated GFR > 60 POC Glucose 169 H Random Glucose 169 H Calcium 8.2 L D Blood Type Antibody Screen Assessment and Plan (1) Closed comminuted fracture of left humerus: Status: Acute (2) Obesity due to excess calories: Status: Acute Plan 72-year-old female past medical history of diabetes, hypertension, HLD presents to the hospital with complaints of fall found to have multiple fractures # Multiple acute fractures including displaced communited fracture of left tibia, displaced fracture of distal end of fibula, and close communicated fracture of left humerus - seen by Orthopedic surgery in regard to left proximal humeral fracture they recommend sling for comfort, non weight bearing left upper extremity and gentle elbow hand and wrist range of motion ? surgery for fixation of left tibia done 12/08 ? Good pain control on iv morphine as needed and oxycodone, continue stool softeners ? upper extremity in a sling Hematocrit as of yesterday # Mild leukocytosis likely due to fracture resolved. # diabetes mellitus on insulin- blood sugars improving, hemoglobin A1c 11.1 continue basal and bolus insulin and diabetic diet,. dose of basal insulin reduced to 50% due to surgery, follow blood sugar closely. # HLD - continue Lipitor at home takes Crestor # morbid obesity recommend low calorie diet # obstructive sleep apnea use CPAP has own machine. DVT prophylaxis:?lovenox subQ Given patient's multiple fractures requiring intravenous pain medication and surgery patient will require continued inpatient hospital stay pt EVAL FOR PLACMENT Time Spent With Patient Time: Total time managing care of this patient today ____ minutes. Quality Stroke Does the patient have a stroke diagnosis?: No VTE Prior VTE?: No VTE Risk Level:: Medical - moderate - high VTE Device Contraindication: Treatment Not Indicated VTE Drug Contraindication: N/A - Med Ordered
[2022-12-09 11:53] LABS: Glucose, Whole Blood 132 mg/dL (60-115)
[2022-12-09 12:10] LABS: COVID-19 Test Negative (Negative); IDNOW Serial# 55D5AD1C
--- NOTE | 2022-12-09 13:07 | HO.POSTANES ---
Post Anesthesia Evaluation Post Anesthesia Evaluation Vital Signs: Vital Signs Temp Pulse Resp BP Pulse Ox O2 Del Method O2 Flow Rate 12/09/22 08:31 76 139/69 94 12/09/22 07:20 98.7 F 76 16 139/69 94 Nasal Cannula 3 12/09/22 03:11 97.8 F 103 H 20 158/73 H 89 L CPAP Anesthesia: General Mental Status: Awake Pain Control: Satisfactory Nausea/Vomiting: None Hydration: Adequate Anesthesia-Related Issues: No Anes. Related Issues
--- NOTE | 2022-12-09 13:57 | MHC.CM.PN ---
EMR reviewed, this CM met with pt and raven Brooks, and DESI Zacarias with manager business continuity [facility]re[facility]. IMM given 12/09. HCP filled out with pts raven Brooks ([phone]) appointed at 1st agent and DESI Zacarias ([phone]) appointed as alternate agent. Per PT recommendations and MD rounds D/C plan for STR. Referrals sent via [facility], awaiting bed placement. CM will continue to follow.
[2022-12-09 15:48] VITALS: BP 150/75; PULSE 99; RESP 18; TEMP 37.1; O2SAT 97
[2022-12-09 15:49] VITALS: O2SAT 97
[2022-12-09 15:58] LABS: Glucose, Whole Blood 184 mg/dL (60-115)
[2022-12-09] MEDS: Acetaminophen 325 MG TABLET 650 MG PO (18:01)
[2022-12-09 20:00] VITALS: BP 147/67; PULSE 89; RESP 18; TEMP 37.2; O2SAT 97
[2022-12-09 20:12] LABS: Glucose, Whole Blood 181 mg/dL (60-115)
[2022-12-09] MEDS: Sennosides/Docusate Sodium TABLET 1 TAB PO (21:55)
[2022-12-09] MEDS: Insulin Glargine,Hum.rec.anlog 100 UNIT/ML 10 ML VIAL 8 UNIT SUBCUT (22:01)
[2022-12-10] MEDS: 0.9 % Sodium Chloride Flush 3 ML SYRINGE IVFLUSH ×2 (00:38→08:20)
[2022-12-10 03:00] VITALS: BP 125/60; PULSE 90; RESP 20; TEMP 36.8; O2SAT 95
[2022-12-10] MEDS: Omeprazole 20 MG CAPSULE.DR PO (05:29)
[2022-12-10 07:00] VITALS: BP 122/62; PULSE 94; RESP 20; TEMP 36.7; O2SAT 97
--- NOTE | 2022-12-10 08:13 | PM.PNORT ---
Subjective Subjective Date of Service: 12/10/22 Interval history: POD2 status post left tibial plateau and tibial shaft ORIF. Patient is resting comfortably in bed. No overnight events. No additional complaints. Physical Exam Vital Signs: Vital Signs: Last Vital Signs Temp 98.0 F 12/10/22 07:00 Pulse 94 12/10/22 07:00 Resp 20 12/10/22 07:00 BP 122/62 12/10/22 07:00 Pulse Ox 97 12/10/22 07:00 O2 Del Method Nasal Cannula 12/10/22 07:00 O2 Flow Rate 2 12/10/22 07:00 Oxygen Flow Rate 3 12/09/22 15:49 BMI result Body Mass Index 44.4 Const: General: cooperative, healthy appearing and no acute distress Resp: Effort & Inspection: normal respiratory effort and able to speak in complete sentences Cardio: Rate: regular rate Peripheral pulses: Peripheral pulses 2+ throughout GI: Palpation (GI): Soft to palpation Skin: Lesions: no lesions Rashes: no rashes Extrem: Other: Left lateral tibial incision site is clean dry and intact. Stu intact. No surrounding erythema or signs of infection. Able to dorsiflex and plantar flex. NVI. Procedures Date of Service Date of Service: 12/10/22 Progress Note: A&P Assessment and plan (1) Displaced comminuted fracture of shaft of left tibia, initial encounter for closed fracture: Status: Acute Assessment and Plan: Pain management as appropriate dressings were changed at bedside patient may be out of the brace while in bed brace needs to be on at all times while attempting to ambulate PT and occupational therapy status post left tibial plateau ORIF and tibial shaft ORIF - nonweightbearing left lower extremity, nonweightbearing range of motion okay Lovenox for DVT prophylaxis cleared for discharge to rehab from orthopedic standpoint and should follow-up in the clinic in 2 weeks (2) Displaced fracture of distal end of fibula: Status: Acute (3) Closed comminuted fracture of left humerus: Status: Acute (4) Diabetic polyneuropathy associated with type 2 diabetes mellitus: Status: Acute (5) Diabetes type 2, uncontrolled: Status: Acute Time Spent With Patient Time: Total time managing care of this patient today ____ minutes. Quality Stroke Does the patient have a stroke diagnosis?: No VTE Prior VTE?: No VTE Risk Level:: Medical - moderate - high VTE Device Contraindication: Treatment Not Indicated VTE Drug Contraindication: N/A - Med Ordered
[2022-12-10 08:15] LABS: Glucose, Whole Blood 155 mg/dL (60-115)
[2022-12-10] MEDS: Calcium + Vitamin D 250 MG TABLET 500 MG PO (08:20)
[2022-12-10] MEDS: oxyCODONE HCl ER 10 MG TAB.ER.12H PO (08:20)
[2022-12-10] MEDS: polyethylene glycoL 3350 17 GM POWD.PACK PO (08:20)
[2022-12-10] MEDS: Enoxaparin Sodium 40 MG/0.4 ML SYRINGE SUBCUT (08:20)
[2022-12-10] MEDS: Atorvastatin Calcium 80 MG TABLET PO (08:20)
[2022-12-10] MEDS: Insulin Lispro 100 UNIT/ML 3 ML VIAL SUBCUT ×2 (08:21→12:08)
[2022-12-10] MEDS: Escitalopram Oxalate 20 MG TABLET PO (08:21)
[2022-12-10 09:07] VITALS: BP 122/62; PULSE 94; O2SAT 97
[2022-12-10 09:13] LABS: Hematocrit 27.7 % (37.0-47.0); Hemoglobin 9.1 g/dl (12.0-16.0)
--- NOTE | 2022-12-10 09:36 | HO.PM.IMPN ---
Subjective Subjective Date of Service: 12/10/22 Interval History: f/u post left tibia plateau fracture repair, pain is well control Physical Exam Vital Signs: Vital Signs: Last Vital Signs Temp 98.0 F 12/10/22 07:00 Pulse 94 12/10/22 09:07 Resp 20 12/10/22 07:00 BP 122/62 12/10/22 09:07 Pulse Ox 97 12/10/22 09:07 O2 Del Method Nasal Cannula 12/10/22 07:00 O2 Flow Rate 2 12/10/22 07:00 Oxygen Flow Rate 3 12/09/22 15:49 BMI result Body Mass Index 44.4 Const: Other: General: AO X 3, no acute distress Resp: CTA bilateral CVS: S1,S2,RRR GI: +BS, NT, no distention Skin: No rash Neuro: motor grossly intact MSK: right knee imobilzer in place, wound looks good Psych: appropriate affect Objective Data Active Medications Acetaminophen (Acetaminophen 325 Mg Tablet) 650 mg PO Q6H PRN PRN Reason: Pain, Mild (Pain Scale 1-3) Last Admin: 12/09/22 18:01 Dose: 650 mg Documented By: HYUN Atorvastatin Calcium (Atorvastatin Calcium 80 Mg Tablet) 80 mg PO DAILY [facility] Last Admin: 12/10/22 08:20 Dose: 80 mg Documented By: IMELDA Calcium Carbonate/Cholecalciferol (Calcium + Vitamin D 250 Mg Tablet) 500 mg PO BID [facility] Last Admin: 12/10/22 08:20 Dose: 500 mg Documented By: IMELDA Enoxaparin Sodium (Enoxaparin Sodium 40 Mg/0.4 Ml Syringe) 40 mg SUBCUT Q24H [facility] Last Admin: 12/10/22 08:20 Dose: 40 mg Documented By: IMELDA Escitalopram Oxalate (Escitalopram Oxalate 20 Mg Tablet) 20 mg PO DAILY [facility] Last Admin: 12/10/22 08:21 Dose: 20 mg Documented By: IMELDA Glucose (Glucose Gel 15 Gm Gel..Gram.) 15 gm PO Q15M PRN; Protocol PRN Reason: per Hypoglycemia Standing Ord. Hydromorphone HCl (Hydromorphone Hcl 0.5 Mg/0.5 Ml Syringe) 0.25 mg IVPUSH Q5M PRN; Protocol PRN Reason: Pain, Severe (Pain Scale 7-10) Last Admin: 12/09/22 05:23 Dose: 0.25 mg Documented By: KAT Dextrose (D10) 250 mls @ 750 mls/hr IV Q15M PRN; Protocol PRN Reason: per Hypoglycemia Standing Ord. Promethazine HCl 12.5 mg/ (Sodium Chloride) 50.5 mls @ 202 mls/hr IV ONCE PRN PRN Reason: Nausea and Vomiting Insulin Glargine (Insulin Glargine,Hum.Rec.Anlog 100 Unit/Ml 10 Ml Vial) 8 unit SUBCUT BEDTIME [facility] Last Admin: 12/09/22 22:01 Dose: 8 unit Documented By: CORBYDEBuddy Insulin Human Lispro (Insulin Lispro 100 Unit/Ml 3 Ml Vial) 0.1 - 10 unit SUBCUT QIDACHS [facility]; Protocol Last Admin: 12/10/22 08:21 Dose: 2 unit Documented By: IMELDA Insulin Human Lispro (Insulin Lispro 100 Unit/Ml 3 Ml Vial) 8 unit SUBCUT TIDAC [facility] Last Admin: 12/10/22 08:23 Dose: Not Given Documented By: IMELDA Non-Admin Reason: poc 155 Meclizine HCl (Meclizine Hcl 25 Mg Tablet) 25 mg PO DAILY PRN PRN Reason: dizziness Omeprazole (Omeprazole 20 Mg Capsule.Dr) 20 mg PO DAILY@0630 [facility] Last Admin: 12/10/22 05:29 Dose: 20 mg Documented By: NEMO Ondansetron HCl (Ondansetron Hcl 4 Mg/2 Ml Vial) 4 mg IVPUSH Q8H PRN PRN Reason: Nausea and Vomiting Ondansetron HCl (Ondansetron Hcl 4 Mg/2 Ml Vial) 4 mg IVPUSH ONCE PRN PRN Reason: Nausea and Vomiting Oxycodone HCl (Oxycodone Hcl Er 10 Mg Tab.Er.12h) 10 mg PO BID [facility] Last Admin: 12/10/22 08:20 Dose: 10 mg Documented By: IMELDA Pharmacy Consult (Consult Rx Perform Med Rec) 1 each MISCELLANE ONCE PRN PRN Reason: Consult order Polyethylene Glycol (Polyethylene Glycol 3350 17 Gm Powd.Pack) 17 gm PO DAILY [facility] Last Admin: 12/10/22 08:20 Dose: 17 gm Documented By: IMELDA Senna/Docusate Sodium (Sennosides/Docusate Sodium Tablet) 1 tab PO BEDTIME [facility] Last Admin: 12/09/22 21:55 Dose: 1 tab Documented By: HAJA Sodium Chloride (0.9 % Sodium Chloride Flush 3 Ml Syringe) 3 ml IVFLUSH QSHIFT [facility] Last Admin: 12/10/22 08:20 Dose: 3 ml Documented By: IMELDA Labs 12/10/22 07:56 12/09/22 06:31 Labs: Laboratory Results - last 24 hr 12/09/22 12/09/22 12/09/22 11:20 11:46 15:46 POC Glucose 132 H 184 H COVID-19 ([facility]) Negative COVID-19 Clin Com See Note 12/09/22 12/10/22 20:06 08:11 POC Glucose 181 H 155 H COVID-19 ([facility]) COVID-19 Clin Com Assessment and Plan (1) Closed comminuted fracture of left humerus: Status: Acute (2) Obesity due to excess calories: Status: Acute Plan 72-year-old female past medical history of diabetes, hypertension, HLD presents to the hospital with complaints of fall found to have multiple fractures # Multiple acute fractures including displaced communited fracture of left tibia, displaced fracture of distal end of fibula, and close communicated fracture of left humerus - seen by Orthopedic surgery in regard to left proximal humeral fracture they recommend sling for comfort, non weight bearing left upper extremity and gentle elbow hand and wrist range of motion ? surgery for fixation of left tibia done 12/08 ? Good pain control on iv morphine as needed and oxycodone, continue stool softeners ? upper extremity in a sling Hematocrit has trended down a bit but overall better # Mild leukocytosis likely due to fracture resolved. # diabetes mellitus on insulin- blood sugars improving, hemoglobin A1c 11.1 continue basal and bolus insulin and diabetic diet,. dose of basal insulin reduced to 50% due to surgery, follow blood sugar closely. # HLD - continue Lipitor at home takes Crestor # morbid obesity recommend low calorie diet # obstructive sleep apnea use CPAP has own machine. DVT prophylaxis:?lovenox subQ Given patient's multiple fractures requiring intravenous pain medication and surgery patient will require continued inpatient hospital stay PT recommend STR Time Spent With Patient Time: Total time managing care of this patient today ____ minutes. Quality Stroke Does the patient have a stroke diagnosis?: No VTE Prior VTE?: No VTE Risk Level:: Medical - moderate - high VTE Device Contraindication: Treatment Not Indicated VTE Drug Contraindication: N/A - Med Ordered
[2022-12-10 11:00] VITALS: BP 134/68; PULSE 89; RESP 18; TEMP 36.8; O2SAT 100
[2022-12-10 11:39] LABS: Glucose, Whole Blood 162 mg/dL (60-115)
[2022-12-10 14:29] LABS: COVID-19 Test Negative (Negative); IDNOW Serial# 9DB6401D
--- NOTE | 2022-12-10 14:54 | P.DS_ITS ---
DS: Providers Provider Date of Service: 12/10/22 Date of admission: 12/05/22 00:20 Primary care physician: Radha Bran MD Consults: 12/05/22 00:19 Consult to Orthopedics Routine Consulting Provider: [facility] [place] [facility] Reason for consultation: fibular and humeral fx Has provider been notified: Yes DS: Diagnosis Discharge Diagnosis (1) Closed comminuted fracture of left humerus: Status: Acute (2) Obesity due to excess calories: Status: Acute DS: Summary Hospital Course Hospital Course: Chief Complaint: Fall Spent only, history is obtained with the help of an lure maker This is a 72-year-old female past medical history of diabetes, HTN, HLD, obesity, with a presents to the hospital after having a mechanical fall.? Patient states that she was walking up the steps, her leg slipped, fell to her left side developing immediate pain in her left arm and leg.? Patient otherwise reports no dizziness, no loss of consciousness, no palpitations, no chest pain, no shortness of breath cough, no abdominal pain nausea or vomiting, no diarrhea constipation, no urinary symptoms and no lower extremity edema.? On arrival to the ED patient hemodynamically stable with no significant abnormal vitals labs are significant for WBC count of 12.5, labs otherwise unremarkable, Imaging including shoulder x-ray showed?commuted left humeral head/neck fracture ?stable in alignment with subluxation Head and cervical spine CT negative Chest CT negative Tibia/fibular x-ray shows acute displaced comminuted obliquely oriented fracture of the mid tibia diet feces with extension of comminution into the lateral tibial plateau Orthopedic consult, wants the patient to be admitted for further management Hospital course: She presented with a mechanical fall and sustained multiple fractures as stated below # Multiple acute fractures including displaced? communited? fracture of left tibia, displaced fracture of distal end of fibula, and close communicated fracture of left humerus She was evaluated by Orthopedic surgery in regard to left proximal humeral fracture and they recommended sling for comfort,? non weight bearing left upper extremity and gentle elbow hand and wrist range of motion ?For Tibia plateau fracture, she had operative fixation of left tibia on 12/08 and is doing well post operatively. Her pain is being is being controlled on oxycodone. She is on Lovenox for DVT prophylaxis for 6 weeks. #Acute blood loss anemia related to fracture and operative repair. Initial hematocrit of 40 decreased to 35 before surgery and post operatively day one dropped to 29 and day 2 27 with no sings of active bleed, part of the loss maybe related to fluid and is expected to improve. # Mild leukocytosis likely due to fracture resolved. # diabetes mellitus on insulin- blood sugars improving, hemoglobin A1c 11.1 continue basal and bolus insulin and diabetic diet. # HLD - continue Crestor # morbid obesity recommend low calorie diet # obstructive sleep apnea use CPAP has own machine. #Dispo: To short term rehab for less than 30 days DVT prophylaxis:?lovenox? subQ for 6 weeks. Time Spent with Patient Time attestation: Total time managing care of this patient today ____ minutes. Discharge coordination time: Greater than 30 minutes Quality: Safe Use of Opioids Does Pt have an Active Cancer Diagnosis on the Problem List?: No Quality: Stroke Does the patient have a stroke diagnosis?: No Physical Exam Vital Signs: Vital Signs: Last Vital Signs Temp 98.2 F 12/10/22 11:00 Pulse 89 12/10/22 11:00 Resp 18 12/10/22 11:00 BP 134/68 12/10/22 11:00 Pulse Ox 100 12/10/22 11:00 O2 Del Method Room Air 12/10/22 11:00 O2 Flow Rate 2 12/10/22 07:00 Oxygen Flow Rate 3 12/09/22 15:49 BMI result Body Mass Index 44.4 DS: Data Data Completed and Pending Labs on day of discharge: Laboratory Results - last 24 hr 12/09/22 12/09/22 12/10/22 15:46 20:06 07:56 Hgb 9.1 L Hct 27.7 L POC Glucose 184 H 181 H COVID-19 ([facility]) COVID-19 Clin Com 12/10/22 12/10/22 12/10/22 08:11 11:28 13:52 Hgb Hct POC Glucose 155 H 162 H COVID-19 ([facility]) Negative COVID-19 Clin Com See Note Discharge Plan Discharge Anticipated Discharge Date/Time: 12/10/22 13:45 Patient Disposition: Xfer SNF Discharge Diagnosis: Fall, tibia plateau fracture Referrals: Radha Bran MD [Primary Care Provider] - 1 Week Discharge Medications: New enoxaparin 40 mg/0.4 mL Syringe 40 mg subcut Q24H 42 Days Qty: 16.8 0RF polyethylene glycol 3350 17 gram Powder In Packet 17 g PO DAILY Qty: 30 0RF sennosides-docusate sodium [Senna Plus] 8.6-50 mg Tablet 1 tab PO BEDTIME Qty: 30 0RF oxycodone [OxyContin] 10 mg Tablet,Oral Only,Ext.Rel.12 Hr 10 mg PO BID 20 Days Qty: 40 0RF Rx Instructions: Partial Fill upon patient request. oxycodone 5 mg capsule 5 mg PO Q6H PRN (Reason: pain (scale score 7-10)) Qty: 20 0RF Rx Instructions: Partial Fill upon patient request. Continued meclizine 25 mg tablet 25 mg PO DAILY PRN (Reason: dizziness) insulin lispro 100 unit/mL insulin pen 8 unit subcut TID escitalopram oxalate 20 mg tablet 20 mg PO DAILY rosuvastatin 40 mg tablet 40 mg PO DAILY calcium carbonate-vitamin D3 600 mg-10 mcg (400 unit) tablet 1 tab PO Q12H insulin glargine 100 unit/mL (3 mL) insulin pen 26 unit subcut BEDTIME Trulicity 1.5 mg/0.5 mL pen injector 1.5 mg subcut [employer]RIES (DME) CeQur Simplicity 2 unit device MISCELLANEOUS DIRECTED Discharge Orders: Discharge Order (Routine); Ordered 12/10/22 Ordered By: Soham Rodríguez Diet: Advance to usual diet Activity on Discharge: As tolerated Stand Alone Forms: Patient Portal Discharge page Activity Restrictions/Additional Instructions: * NWB x6 weeks * NWB ROM as tolerated * Knee immobilizer intact on at all times-may remove with NWB ROM exercises * Dressing changes prn-dry dressings * Continue anticoagulant x 6 weeks * No tub bath or shower-Keep dressing clean, dry and intact * Follow up with orthopedics in 2 weeks Care Plan Goals: Full recovery from fall, fractures Health Concerns: fall, knee fracture Plan of Treatment: to short term rehab for less than 30 days check CBC in 2 days, Yusef Assessment: as above
[2022-12-10 15:38] LABS: Glucose, Whole Blood 181 mg/dL (60-115)
[2022-12-10 16:03] VITALS: BP 145/69; PULSE 98; RESP 19; TEMP 37; O2SAT 93
--- NOTE | 2022-12-11 08:42 | MHC.CM.PN ---
Late entry note for 12/10/22. Pt D/C to [facility] at 4:30pm. Transportation via [employer]. Pt and DESI Zacarias aware of D/C. [facility] updated via [employer].
--- NOTE | 2022-12-11 14:59 | P.OP_ITS ---
Operative Note Operative Note Date of Service: 12/08/22 Narrative: Date of Service: 12/08/22 Pre-op diagnosis: Left tibial plateau fracture and left tibial shaft fracture Post-op diagnosis: same Procedure: ORIF left tibial plateau and left tibial shaft fracture Implants: Elder 16 hole lateral locking plate Surgeon: Doc Cortez MD Anesthesia: GETA and local Was an Lifestyle Consultant used for this Procedure?: No Estimated blood loss (mL): 200 Tourniquet time (min): 129 IV fluids (mL): 1,500 Pathology: none sent Condition: stable Disposition: PACU Patient was brought to the operating room and placed supine on the surgical table. She was prepped and draped in standard sterile fashion and a time out was called to identify proper site, proper procedure and IV antibiotics per weight were administered. I began by exsanguinating the limb and insufflating tourniquet to 300 mm Hg. I then began by examining the left tibia. There was a shaft fracture and FX tibial plateau fracture. After careful consideration I made a standard lateral tibial plateau incision. Full-thickness flaps were taken down tensor fascia and this was incised in line with the incision and then reflected off Gerdy's tubercle. I selected a 16 hole lateral locking plate and slid this down subperiosteally along the lateral aspect of the tibia. I then used a series of combination of locking and nonlocking screws to suck the bone to the plate and reduced the shaft fracture. My height was selected using bipl tatiana fluoroscopy and visual inspection. I made a small anteromedial incision to help with the reduction of the shaft. Once I was satisfied with the alignment of the shaft and the position of the plate I turned my attention back to the lateral plateau. The coronal ligaments and capsule has been had been incised and I was able to reflect these and examined the lateral plateau under direct visualization. There was a loss of articular cartilage at the medial aspect of the lateral plateau. This depression was significant. I used to tamp to tamp up the metaphyseal bone but there was no way to recreate the normal articular cartilage. Once I had tamp the sub sufficiently I placed 10 mL of HydroSet in through the defect in the medical a tap assist. I used biplanar fluoroscopy to confirm that this remained in the desired location and once was dry I placed a series of compression and locking screws to reapproximate the lateral tibial plateau alignment. Once I was satisfied with this the capsule and meniscus were repaired and copious irrigation was performed. Layered closure over the lateral plateau with marcela on the skin was performed. Distally there was percutaneous incisions which were closed with absorbable suture and marcela. The anteromedial incision was also closed. Tourniquet was let down. There was no brisk bleeding. She had bounding palpable pulses. She was placed in a knee and sterile dressing and a knee immobilizer and extubated brought to recovery room stable condition. There were no known complications.
== END 2022-12-10 18:18 | disposition skilled nursing facility (03) | DRG 493 ==
LOC: HO.ED 21:57 → HO.EDOVER 12-05 00:43 → HO.IMC 12-05 07:25
PROVIDERS: Hospitalist; Orthopaedic Surgery; Physician Assistant; Admitting Provider Internal Medicine; Emergency Provider Student in an Organized Health Care Education/Training Program; PCP Internal Medicine; Visit Provider Internal Medicine
PROC: 0QSH04Z Reposition Left Tibia with Internal Fixation Device, Open Approach (ICD-10-PCS; principal; 2022-12-08 15:20)
DX: S82.142A Displaced bicondylar fracture of left tibia, initial encounter for closed fracture (principal); D62 Acute posthemorrhagic anemia; S42.292A Other displaced fracture of upper end of left humerus, initial encounter for closed fracture; Z68.41 Body mass index [BMI] 40.0-44.9, adult; S82.832A Other fracture of upper and lower end of left fibula, initial encounter for closed fracture; W19.XXXA Unspecified fall, initial encounter; E11.42 Type 2 diabetes mellitus with diabetic polyneuropathy; E11.65 Type 2 diabetes mellitus with hyperglycemia; E66.01 Morbid (severe) obesity due to excess calories; D72.829 Elevated white blood cell count, unspecified; G47.33 Obstructive sleep apnea (adult) (pediatric); E78.5 Hyperlipidemia, unspecified; Z20.822 Contact with and (suspected) exposure to COVID-19; Z98.84 Bariatric surgery status; Z87.891 Personal history of nicotine dependence; Z79.4 Long term (current) use of insulin; Z79.899 Other long term (current) drug therapy
CPT/HCPCS: 36415; 70450; 71250; 72125; 73030; 73200; 73590; 73600; 73700; 80048; 80053; 81003; 82947; 84484; 85014; 85018; 85025; 85027; 85610; 86850; 86900; 86901; 87635; 93005; 97162; 97166; 97530; 99285; C1713; C1758; J0131; J0690; J1170; J1650; J1885; J2250; J2270; J2405; J2795; J3010

== ENCOUNTER 2022-12-22 09:16 | Outpatient (REF) | payer OTHER, SELFPAY ==
--- NOTE | ~2022-12-22 | XR_ITS ---
Examination: Left shoulder. Left tibia and fibula CLINICAL INDICATION: Displaced comminuted fracture of shaft of left tibia. COMPARISON: 12/22/2022. FINDINGS: Left tibia and fibula There is a oblique longitudinal fracture involving proximal and mid tibia with minimal displacement stabilized with lateral metallic plate and screws. The fracture extends to the lateral tibial plateau and has been stabilized with cement and lateral plate and screws. The soft tissues are unremarkable. There is a nondisplaced fracture left distal fibula. Left shoulder: Comminuted fracture left humeral head is stable.. There is no dislocation. The soft tissues are normal. XR/XR shoulder LT min 2V IMPRESSION: 1. Stabilized lateral tibial plateau fracture extending proximal and mid segment with lateral metallic plate and screws. The proximal fracture extending to the tibial plateau is stabilized with cement and lateral plate and screws. 2. There is a nondisplaced fracture left distal fibula. 3. Comminuted fracture left humeral head is stable.
--- NOTE | ~2022-12-22 | XR_ITS ---
Examination: Left shoulder. Left tibia and fibula CLINICAL INDICATION: Displaced comminuted fracture of shaft of left tibia. COMPARISON: 12/22/2022. FINDINGS: Left tibia and fibula There is a oblique longitudinal fracture involving proximal and mid tibia with minimal displacement stabilized with lateral metallic plate and screws. The fracture extends to the lateral tibial plateau and has been stabilized with cement and lateral plate and screws. The soft tissues are unremarkable. There is a nondisplaced fracture left distal fibula. Left shoulder: Comminuted fracture left humeral head is stable.. There is no dislocation. The soft tissues are normal. XR/XR tibia fibula LT 2V IMPRESSION: 1. Stabilized lateral tibial plateau fracture extending proximal and mid segment with lateral metallic plate and screws. The proximal fracture extending to the tibial plateau is stabilized with cement and lateral plate and screws. 2. There is a nondisplaced fracture left distal fibula. 3. Comminuted fracture left humeral head is stable.
== END 2022-12-22 09:17 | disposition home or self-care (01) ==
LOC: HO.HOSX 09:16
PROVIDERS: Visit Provider Physician Assistant
DX: S82.252A Displaced comminuted fracture of shaft of left tibia, initial encounter for closed fracture (principal); M25.512 Pain in left shoulder
CPT/HCPCS: 73030; 73590

== ENCOUNTER 2023-01-22 12:14 | Outpatient (REF) | payer OTHER, SELFPAY ==
--- NOTE | ~2023-01-22 | XR_ITS ---
EXAMINATION: XR SHOULDER, LEFT CLINICAL INFORMATION: Fracture COMPARISON: Previous x-ray 12/22/2022 TECHNIQUE: 2 views of of the left shoulder. FINDINGS: Comminuted minimally displaced fracture of the proximal humerus. Alignment appears unchanged. Fracture line appears slightly more indistinct suggestive of evidence of healing. Low humeral head with respect to the glenoid probably secondary to joint effusion. Mild arthritis at the acromioclavicular joint. Normal soft tissues. XR/XR shoulder LT min 2V IMPRESSION: Healing left proximal humerus fracture.
--- NOTE | ~2023-01-22 | XR_ITS ---
EXAMINATION: XR TIBIA AND FIBULA, LEFT CLINICAL INFORMATION: Fracture COMPARISON: Previous x-ray most recent November 2022 TECHNIQUE: AP and lateral views of the left tibia and fibula were obtained. FINDINGS: There is a plate and screws transfixing comminuted lateral tibial plateau and proximal and mid tibial shaft fracture. There is a cement seen in the proximal lateral tibia. Fracture line is slightly more indistinct suggestive of evidence of healing. Alignment unchanged. Orthopedic hardware intact. Minimally displaced oblique comminuted fracture of the left fibular shaft unchanged. Small soft tissue calcifications in the anterior brink. XR/XR tibia fibula LT 2V IMPRESSION: ORIF of left tibial fracture with evidence of healing. Unchanged distal fibular shaft fracture.
== END 2023-01-22 12:15 | disposition home or self-care (01) ==
LOC: HO.HOSX 12:14
PROVIDERS: Visit Provider Orthopaedic Surgery
DX: S82.142D Displaced bicondylar fracture of left tibia, subsequent encounter for closed fracture with routine healing (principal); S42.292D Other displaced fracture of upper end of left humerus, subsequent encounter for fracture with routine healing
CPT/HCPCS: 73030; 73590; 99212

== ENCOUNTER → 2023-02-20 11:19 | Outpatient (BNVA) | payer OTHER, SELFPAY | PROVIDERS: PCP Internal Medicine; Visit Provider Registered Nurse Diabetes Educator | DX: E11.9 Type 2 diabetes mellitus without complications (principal); Z79.4 Long term (current) use of insulin | CPT/HCPCS: 99211 ==

== ENCOUNTER 2023-03-17 15:07 | Outpatient (AMB) | payer OTHER, SELFPAY ==
--- NOTE | 2023-03-17 16:08 | MHC.AMDMED ---
Intake Intake Visit Reasons: DM Allergies seasonal Allergy (Intermediate, Uncoded 12/22/22 11:32) cough HPI Comprehensive Diabetes Asmnt Most Recent Diabetes Results: Cholesterol 218 mg/dL 11/19/22 HDL Cholesterol 50 mg/dL 11/19/22 Triglycerides 122 mg/dL 11/19/22 Creatinine 0.59 mg/dL (0.5-1.4) 12/09/22 Blood Urea Nitrogen 15 mg/dL (9-16) 12/09/22 Sodium 136 mmol/L (135-145) 12/09/22 Potassium 4.4 mmol/L (3.3-5.1) 12/09/22 Chloride 102 mmol/L (96-108) 12/09/22 Carbon Dioxide 27 mmol/L (22-29) 12/09/22 Calcium 8.2 mg/dL (8.4-10.2) L 12/09/22 AST 24 U/L (5-31) 12/04/22 ALT 26 U/L (0-31) 12/04/22 Total Protein 6.7 g/dL (6.5-8.0) 12/04/22 Albumin 3.6 g/dL (3.5-5.0) 12/04/22 [facility] Medical History Anxiety Asthma Diabetes type 2, uncontrolled Diabetic polyneuropathy associated with type 2 diabetes mellitus Dyslipidemia Hypertension Morbid obesity Obesity Obesity due to excess calories REY (obstructive sleep apnea) Panic attack Vitamin D deficiency Surgical History H/O foot surgery History of carpal tunnel release History of dilatation and curettage History of esophagogastroduodenoscopy (EGD) History of eyelid surgery History of sleeve gastrectomy Hx of colonoscopy Hx of tubal ligation S/P trigger finger release Family History Father Type II diabetes mellitus Obesity Mother HTN (hypertension) Brother Cancer Social History Household Members: Spouse Housing: Apartment Do you presently have visiting nurse or other home services: Yes Alcohol intake: never Patient Tobacco Use Status: Former Tobacco user Quit Date: >30 yrs ago Tobacco use type: Cigarette e-Cigarette/Vaping Use: Never Used service: No Current occupational status: unemployed Current occupation: rt handed Assessment & Plan Assessment & Plan (1) Diabetes: Code(s): E11.9 - Type 2 diabetes mellitus without complications Plan: Insulin Education visit Patient Education: Patient was instructed and provided with demonstration of the following: Insulin action insulin storage how to setup CeQue device Handwashing insulin injection site rotation Site rotation recognizing hypertrophy Testing blood glucose Removing and disposing needle from insulin pen Safe disposal of sharps Target blood sugar Signs/ symptoms/treatment of hypoglycemia/hyperglycemia expiration of open insulin pen Patient verbalized understanding of education provided and was able to demonstrate proper use of inject into injection pillow Reviewed rule of 15s to treat glucose under 70 mg/dL All questions were answered and patient was advised to contact the office with any questions or concerns. Plan Pt will use CeQue 3 clicks, before each meal Patient Instructions: Patient has appointment with Cequr technology trainer in 72 hours Patient has an appointment with Diabetes Education nurse in month Coding Level of Care Code Est Pt Level 1 (59377) Diagnoses Diabetes E11.9
== END 2023-03-17 16:12 | disposition home or self-care (01) ==
PROVIDERS: PCP Internal Medicine; Visit Provider Registered Nurse Diabetes Educator
DX: E11.9 Type 2 diabetes mellitus without complications (principal)

== ENCOUNTER → 2023-03-17 15:07 | Outpatient (BNVA) | payer OTHER, SELFPAY | PROVIDERS: PCP Internal Medicine; Visit Provider Registered Nurse Diabetes Educator | DX: E11.9 Type 2 diabetes mellitus without complications (principal) | CPT/HCPCS: 99211 ==

== ENCOUNTER 2023-03-19 13:37 | Outpatient (AMB) | payer OTHER, SELFPAY ==
--- NOTE | 2023-03-19 13:42 | MHC.OFFVIS ---
Intake Vital Signs 03/19/23 13:46 BMI Reason not done Patient refused/unable BP 128/60 Blood Pressure Location Lt radial Position Sitting Pulse 74 Pulse Source Pulse Oximeter Intake Visit Reasons: DM Intake Note: Patient present today to follow up on Type 2 Diabetes Mellitus. Patient receives DME supplies through: Pharmacy Last Diabetic Eye exam: approx 1 weeks Last Podiatry Visit: pt reports she unsure when her appointment is, also reports she injured her left foot. Random Glucose: 81 mg/dl HgA1C: 6.6% Technical Operations Manager Required: Yes Technical Operations Manager Language: Engineering Technology Instructor Name: MARK [id number] Information Interpreted: non-clinical & clinical Accompanied by: Spouse Allergies seasonal Allergy (Intermediate, Uncoded 03/19/23 13:47) cough Medication List - Last Reconciled 03/19/23 by Pedro Mohamud MD bolus insulin pump, 200 unit (CeQur Simplicity) calcium carbonate-vitamin D3 600 mg-10 mcg (400 unit) 1 tab PO Q12H dulaglutide (Trulicity) 1.5 mg (0.5 mL) subcut DEVRIES enoxaparin 40 mg (0.4 mL) subcut Q24H 42 days escitalopram oxalate 20 mg PO DAILY gabapentin 0 mg PO insulin glargine 24 units subcut BEDTIME insulin lispro Use up to 35 units today via CeQur device subcutaneously 3 times a day; meclizine 25 mg PO DAILY PRN melatonin 10 mg PO BEDTIME oxycodone 5 mg PO Q6H PRN oxycodone ER (OxyContin) 10 mg PO BID 20 days polyethylene glycol 3350 17 grams PO DAILY rosuvastatin 40 mg PO DAILY sennosides-docusate sodium 8.6-50 mg (Senna Plus) 1 tab PO BEDTIME HPI HPI Comments History of Present Illness Details Patient is 72-year-old female with DM type 2 diagnosed 1993 who presents for management of diabetes. Past medical history:Dm2, HTN, HLD, gastric sleeve 02/15/19 Micro and macrovascular complications: retinopathy, nephropathy, neuropathy, Diabetes medications: Synjardy XR 25/1,000not taking because can't tolerate nausea . trulicity 1.5 mg Qwkly Intolerant of regular metformin due to diarrhea Lantus 24 units Humalog 8 units Ac by Cecur device Blood glucose monitoring: In the past 2 weeks, Walter download shows sensors be used 85% of the time. Average glucose is 134 with G mi of 6.5% and variability 41.2%. 79% in target with 16% hyperglycemia and 4% very hyperglycemic and 1% hyperglycemia Symptoms reported: denies numbness, tingling, cramping in lower extremities Hypoglycemia: denies Hyperglycemia: + urinary frequency, + nocturia, denies polydypsia Exercise: has not been walking. Car Lubricator - CDE education: Y [place] Representative: one year ago Dental exam: long time ago. Ophthalmology evaluation: this wk . Reports anti-VGEF therapy. 10/13/20 10/22/20 01/23/21 09:00 Unknown 11:16 Creatinine Estimated GFR Hemoglobin A1c % 6.7 Triglycerides Cholesterol LDL Cholesterol Di rect HDL Cholesterol TSH 2.63 Microalb/Creat Rat io 18.8 02/09/21 02/09/21 07:30 07:30 Creatinine 0.66 Estimated GFR > 60 Hemoglobin A1c % Triglycerides 154 Cholesterol 177 LDL Cholesterol Di rect 101 H HDL Cholesterol 52 TSH Microalb/Creat Rat io PFSH Medical History Anxiety Asthma Diabetes type 2, uncontrolled Diabetic polyneuropathy associated with type 2 diabetes mellitus Dyslipidemia Hypertension Morbid obesity Obesity Obesity due to excess calories REY (obstructive sleep apnea) Panic attack Vitamin D deficiency Surgical History H/O foot surgery History of carpal tunnel release History of dilatation and curettage History of esophagogastroduodenoscopy (EGD) History of eyelid surgery History of sleeve gastrectomy Hx of colonoscopy Hx of tubal ligation S/P trigger finger release Family History Father Type II diabetes mellitus Obesity Mother HTN (hypertension) Brother Cancer Social History Household Members: Spouse Housing: Apartment Do you presently have visiting nurse or other home services: Yes Alcohol intake: never Patient Tobacco Use Status: Former Tobacco user Quit Date: >30 yrs ago Tobacco use type: Cigarette e-Cigarette/Vaping Use: Never Used service: No Current occupational status: unemployed Current occupation: rt handed Physical Exam Absence of Cushingoid features. Absence of acromegalic features. Neck exam reveals nl size thyroid about 15 gms. No thyroid nodules palpable. No carotid bruits present. Lungs CTA. Heart S1 S2, Reg R/R. No M/R/ G. Skin exam reveals absence of vitiligo or acanthosis nigricans. Abdominal exam reveals Soft NT/ND with NA BS. No organomegaly present. Neck Other: . Extrem Other: Visual exam of foot performed. No ulcerations or open lesions. No onchomycosis, no callouses.Pulses 2 + distally Sensation intact to monofilament exam. Vibratory sensation sensed is Decreased with 128 Hz tuning fork Results AMB Hemoglobin A1c AMB Hemoglobin A1c 6.6 % Last Edit by RAYSHAWN Singh on 03/19/23 14:06 Assessment & Plan Assessment & Plan (1) Diabetes type 2, uncontrolled: Code(s): E11.65 - Type 2 diabetes mellitus with hyperglycemia Qualifiers: Glycemic state: with hyperglycemia Qualified Code(s): E11.65 - Type 2 diabetes mellitus with hyperglycemia Plan: This is 73-year-old female with a history of type 2 diabetes being treated with Trulicity and basal insulin with excellent glycemic control and known microvascular complications namely retinopathy, neuropathy and nephropathy. She claims to be intolerant to metformin or metformin /Jardiance combination The plan is to continue the current therapy. Orders: Orders AMB Hemoglobin A1c Today E11.9 - Type 2 diabetes mellitus without complications Coding Level of Care Code Est Pt Level 4 (59624) Diagnoses Diabetes type 2, uncontrolled E11.65 Glycemic state: with hyperglycemia
[2023-03-19 13:46] VITALS: BP 128/60; PULSE 74
[2023-03-19 13:59] LABS: Glucose, Whole Blood 81 mg/dL (60-115)
== END 2023-03-19 14:11 | disposition home or self-care (01) ==
PROVIDERS: PCP Internal Medicine; Visit Provider Internal Medicine Endocrinology, Diabetes & Metabolism
DX: E11.65 Type 2 diabetes mellitus with hyperglycemia (principal); E11.9 Type 2 diabetes mellitus without complications
CPT/HCPCS: 99214

== ENCOUNTER → 2023-03-19 13:37 | Outpatient (BNVA) | payer OTHER, SELFPAY | PROVIDERS: Visit Provider Internal Medicine Endocrinology, Diabetes & Metabolism | DX: E11.65 Type 2 diabetes mellitus with hyperglycemia (principal); Z79.4 Long term (current) use of insulin | CPT/HCPCS: 82947; 83036; 99212 ==

== ENCOUNTER 2023-04-01 15:38 | Outpatient (REF) | payer OTHER, SELFPAY | END 2023-04-01 15:39 | disposition home or self-care (01) | LOC: HO.HOSX 15:38 | PROVIDERS: Visit Provider Orthopaedic Surgery | DX: Z13.89 Encounter for screening for other disorder (principal) ==

== ENCOUNTER 2023-04-02 07:45 | Outpatient (REF) | payer OTHER, SELFPAY ==
--- NOTE | ~2023-04-02 | XR_ITS ---
Examination: Left tibia and fibula. Left shoulder. Clinical indications: Follow-up fracture. COMPARISON: Left tibia and fibula and left shoulder 01/22/2023. TECHNIQUE: 2 views left shoulder and 2 views left tibia and fibula. FINDINGS: Left tibia and fibula: There is comminuted mid tibial fracture stabilized with lateral tibial plate and screws in satisfactory alignment. It is stable. There is an oblique distal fibular fracture which is stable as well. Mild reduction in lateral compartment joint space is seen. Left shoulder: There is a comminuted minimally displaced fracture left proximal humerus. Alignment is stable and unchanged. There is hypertrophic bony changes along the superior lateral aspect of humeral head. AC joint is normal. The soft tissues are normal. XR/XR shoulder LT min 2V IMPRESSION: 1. Comminuted mid tibial fracture stabilized with lateral tibial plate and screws in satisfactory alignment. There is a distal fibular fracture also stable. 2. Comminuted minimally displaced fracture left proximal humerus is stable. There are hypertrophic bony changes along the superior lateral humeral head.
--- NOTE | ~2023-04-02 | XR_ITS ---
Examination: Left tibia and fibula. Left shoulder. Clinical indications: Follow-up fracture. COMPARISON: Left tibia and fibula and left shoulder 01/22/2023. TECHNIQUE: 2 views left shoulder and 2 views left tibia and fibula. FINDINGS: Left tibia and fibula: There is comminuted mid tibial fracture stabilized with lateral tibial plate and screws in satisfactory alignment. It is stable. There is an oblique distal fibular fracture which is stable as well. Mild reduction in lateral compartment joint space is seen. Left shoulder: There is a comminuted minimally displaced fracture left proximal humerus. Alignment is stable and unchanged. There is hypertrophic bony changes along the superior lateral aspect of humeral head. AC joint is normal. The soft tissues are normal. XR/XR tibia fibula LT 2V IMPRESSION: 1. Comminuted mid tibial fracture stabilized with lateral tibial plate and screws in satisfactory alignment. There is a distal fibular fracture also stable. 2. Comminuted minimally displaced fracture left proximal humerus is stable. There are hypertrophic bony changes along the superior lateral humeral head.
== END 2023-04-02 07:46 | disposition home or self-care (01) ==
LOC: HO.HOSX 07:45
PROVIDERS: Visit Provider Orthopaedic Surgery
DX: S82.142D Displaced bicondylar fracture of left tibia, subsequent encounter for closed fracture with routine healing (principal); S42.292D Other displaced fracture of upper end of left humerus, subsequent encounter for fracture with routine healing; M25.561 Pain in right knee; M25.562 Pain in left knee; W19.XXXD Unspecified fall, subsequent encounter; Z79.891 Long term (current) use of opiate analgesic
CPT/HCPCS: 73030; 73590; 99212

== ENCOUNTER 2023-04-02 12:23 | Outpatient (AMB) | payer OTHER, SELFPAY ==
--- NOTE | 2023-04-02 12:25 | A.OFFVIS_ITS ---
Intake Intake Visit Reasons: OV-ORIF left tibia 12/08/22 s/p Intake Note: Halley is a 73 year old female who presents today for a follow up of her left tibia, s/p Left Tibia ORIF 12/08/22. She also fractured her left humerus when she fell on 12/04/2022. She continues to wear the walking boot and uses wheelchair . She is dong well with no pain. She complains mostly of bilateral knee pain. Left > Right. Allergies seasonal Allergy (Intermediate, Uncoded 04/02/23 12:36) cough HPI OV-ORIF left tibia 12/08/22 s/p HPI Details Halley is a 72 year old right hand dominant woman who presents ~4 months S/p left tibia ORIF. She also has a left humerus Fx from a fall, DOI: 12/04/22. She says she is doing well, continues to wear a walking boot and is seen today in a wheelchair. She continues to take Oxycodone for pain relief and has not been weight-bearing. She has completed her course of PT. She complains of some bilateral knee pain, L>R. PFSH Medical History Anxiety Asthma Diabetes type 2, uncontrolled Diabetic polyneuropathy associated with type 2 diabetes mellitus Dyslipidemia Hypertension Morbid obesity Obesity Obesity due to excess calories REY (obstructive sleep apnea) Panic attack Vitamin D deficiency Surgical History H/O foot surgery History of carpal tunnel release History of dilatation and curettage History of esophagogastroduodenoscopy (EGD) History of eyelid surgery History of sleeve gastrectomy Hx of colonoscopy Hx of tubal ligation S/P trigger finger release Family History Father Type II diabetes mellitus Obesity Mother HTN (hypertension) Brother Cancer Social History Household Members: Spouse Housing: Apartment Do you presently have visiting nurse or other home services: Yes Alcohol intake: never Patient Tobacco Use Status: Former Tobacco user Quit Date: >30 yrs ago Tobacco use type: Cigarette e-Cigarette/Vaping Use: Never Used service: No Current occupational status: unemployed Current occupation: rt handed Review of Systems Const All systems reviewed & are unremarkable except as noted in HPI and below Physical Exam Const General: no acute distress and alert Orientation/consciousness: patient oriented x3 Neuro General: patient oriented x3 Extrem Other: Left Leg: Full knee ROM TTP lateral compartment Well-healed incision Moving toes well Firing EHL, tib ant, gastroc Sensation intact to light touch over the LLE Psych Appearance: grossly normal Affect: normal affect Attitude: cooperative Results Reviewed Results Reviewed: I personally reviewed relevant radiographs. Healing tibia fracture with no hardware complications Assessment & Plan Assessment & Plan (1) Fracture of shaft of left tibia: Comment: left tibial shaft fracture ORIF 12/08/2022 NE Code(s): S82.A - Unspecified fracture of shaft of left tibia, initial encounter for closed fracture Plan: This is a 72 year old woman S/P left tibial plateau & shaft fracture ORIF, DOS: 12/08/22. She is doing well in regards to pain. She continues to remain NWB, wears her walking boot and use a wheelchair. She will discontinue her walking boot and transition to WBAT with an assistive walker at this time, transitioning to street shoes as tolerated over the next few weeks. I ordered a new course of PT, she will wean off of her Oxycodone and can take NSAIDs prn. She will follow up in 3 months (2) Fracture of left tibial plateau: Comment: left tibial plateau ORIF 12/08/2022 NE Code(s): S82.142A - Displaced bicondylar fracture of left tibia, initial encounter for closed fracture (3) Fracture of head of left humerus: Comment: 12/04/2022 status post a mechanical fall. Code(s): S42.292A - Other displaced fracture of upper end of left humerus, initial encounter for closed fracture Plan Scribed for Doc Cortez MD by To Luque, medical charge entry specialist, on 04/02/23 at 12:50 PM, EST. Orders: Orders XR tibia fibula LT 2V Today S82.202A - Unspecified fracture of shaft of left tibia, initial encounter for closed fracture XR shoulder LT min 2V Today M25.519 - Pain in unspecified shoulder PT Evaluation and Treatment Today S82.142A - Displaced bicondylar fracture of left tibia, initial encounter for closed fracture, S82.202A - Unspecified fracture of shaft of left tibia, initial encounter for closed fracture Coding Level of Care Code Est Pt Level 3 (70848) Diagnoses Fracture of shaft of left tibia S82.202A Fracture of left tibial plateau S82.142A Fracture of head of left humerus S42.292A
== END 2023-04-02 12:58 | disposition home or self-care (01) ==
PROVIDERS: Visit Provider Orthopaedic Surgery
DX: S82.202A Unspecified fracture of shaft of left tibia, initial encounter for closed fracture (principal); S82.142A Displaced bicondylar fracture of left tibia, initial encounter for closed fracture; S42.292A Other displaced fracture of upper end of left humerus, initial encounter for closed fracture
CPT/HCPCS: 99213

== ENCOUNTER 2023-04-12 11:05 | Emergency (ER) | payer OTHER, SELFPAY ==
--- NOTE | ~2023-04-12 | CT_ITS ---
EXAMINATION: CT ABDOMEN AND PELVIS WITHOUT CONTRAST CLINICAL INFORMATION: Left lower quadrant and flank pain COMPARISON: Previous CT of the abdomen and pelvis from 2017 TECHNIQUE: Multidetector volumetric imaging was performed from the superior aspect of the liver through the pubic symphysis. Sagittal and coronal reformatted images were obtained on the technologist's workstation. This CT examination was performed using dose optimization techniques as appropriate, variously including the following: *Automated exposure control *Adjustment of mA and/or kV according to patient size (this includes techniques or standardized protocols for targeted exams where dose is matched to indication/reason for exam; i.e. extremities or head) *Use of iterative reconstruction technique DLP: 1174 mGy-cm FINDINGS: LUNG BASES: The visualized lung bases are unremarkable. LIVER, GALLBLADDER, AND BILIARY TREE: The liver is normal in size, shape, and attenuation. No focal hepatic lesion or biliary ductal dilatation is present. The gallbladder is unremarkable with no evidence of radiopaque gallstones, gallbladder wall thickening, or obvious pericholecystic inflammatory changes. PANCREAS: Fatty infiltration of the pancreas. SPLEEN: 5 cm low-attenuation lesion in the inferior spleen. This has low Hounsfield units and may represent a cyst. This is increased in size from 1 cm on November 2016 exam. ADRENAL GLANDS: Unremarkable. KIDNEYS AND URETERS: The kidneys are normal in size, shape, and attenuation. No hydronephrosis, hydroureter, or calculi seen. No perinephric stranding. BLADDER: Unremarkable. GASTROINTESTINAL TRACT: The small and large bowel are unremarkable. The appendix is not seen and may have been removed. Postsurgical changes from gastric sleeve pneumonectomy interval from 2017.. ABDOMINAL WALL: Small umbilical hernia containing fat. Postsurgical changes to the lower abdominal wall. LYMPH NODES: Normal. VASCULAR: Unremarkable. PELVIC VISCERA: Unremarkable. OSSEOUS STRUCTURES: Degenerative changes of the spine. CT/CT abdomen pelvis wo IV con IMPRESSION: No acute findings. Postsurgical change from gastric sleeve procedure. 5 cm low-attenuation lesion in the inferior spleen increased from previous exam. This probably represents a cyst. This could be confirmed with ultrasound. Fleischner guidelines were followed.
[2023-04-12 11:11] VITALS: PULSE 82; RESP 16; TEMP 37.1; O2SAT 98; BMI 41.5
--- NOTE | 2023-04-12 11:15 | ED_ITS ---
HPI - General Adult General Chief complaint: Abdominal Pain Stated complaint: Abd pain/Back pain Time Seen by Provider: 04/12/23 12:46 Source: patient Mode of arrival: ambulatory Limitations: no limitations History of Present Illness HPI narrative: 73-year-old female who presents emergency department for evaluation of abdominal pain. Patient states that the pain began this morning at 05:00 hours. She describes the pain as a ?pain ?. The pain has been constant but resolved here in the emergency department the pain was 6/10 at its worst. This is the 1st episode of this type of pain. She did notice urinary frequency but no dysuria. She denied fever, chills, chest pain, shortness of breath, nausea, vomiting, diarrhea. She has not had any dark or bloody stools. Related Data Home Medications Medication Instructions Recorded Confirmed bolus insulin pump, 200 unit 2 12/04/22 12/04/22 unit bolus insulin patch pump, 200 unit, disposable (CeQur Simplicity) calcium carbonate 600 mg-vitamin 1 tab PO Q12H 12/04/22 12/04/22 D3 10 mcg (400 unit) tablet escitalopram oxalate 20 mg tablet 20 mg PO DAILY 12/04/22 12/04/22 meclizine 25 mg tablet 25 mg PO DAILY PRN dizziness 12/04/22 12/04/22 rosuvastatin 40 mg tablet 40 mg PO DAILY 12/04/22 12/04/22 gabapentin 100 mg capsule 0 mg PO 03/19/23 insulin glargine 100 unit/mL (3 24 unit subcut BEDTIME 03/19/23 mL) subcutaneous pen melatonin 5 mg tablet 10 mg PO BEDTIME 03/19/23 Previous Rx's Medication Instructions Recorded oxycodone 10 mg tablet,crush 10 mg PO BID 20 days #40 tabs 12/10/22 resistant,extended release 12 hr (OxyContin) oxycodone 5 mg capsule 5 mg PO Q6H PRN pain (scale score 12/10/22 7-10) #20 caps polyethylene glycol 3350 17 gram 17 g PO DAILY #30 ea 12/10/22 oral powder packet sennosides 8.6 mg-docusate sodium 1 tab PO BEDTIME #30 tabs 12/10/22 50 mg tablet (Senna Plus) dulaglutide 1.5 mg/0.5 mL 1.5 mg (0.5 mL) subcut DEVRIES #2 mL 01/07/23 subcutaneous pen injector (Trulicity) enoxaparin 40 mg/0.4 mL 40 mg (0.4 mL) subcut Q24H 42 days 02/03/23 subcutaneous syringe #16.8 mL insulin lispro 100 unit/mL See Rx Instructions subcut TID #30 03/25/23 subcutaneous solution (Humalog mL U-100 Insulin) acetaminophen 500 mg tablet 500 mg PO Q6H PRN fever or pain 04/12/23 (Tylenol Extra Strength) #30 tabs Allergies Allergy/AdvReac Type Severity Reaction Status Date / Time seasonal Allergy Intermediate cough Uncoded 04/12/23 11:10 Review of Systems Review of Systems: Yes all other systems are reviewed and are negative [facility] Past Medical History [facility] Narrative: Past medical history: Patient is and lives with her , he is here in the emergency department with her. She denies tobacco, alcohol and drug use. Medical History Anxiety Asthma Diabetes type 2, uncontrolled Diabetic polyneuropathy associated with type 2 diabetes mellitus Dyslipidemia Hypertension Morbid obesity Obesity Obesity due to excess calories REY (obstructive sleep apnea) Panic attack Vitamin D deficiency Surgical History H/O foot surgery History of carpal tunnel release History of dilatation and curettage History of esophagogastroduodenoscopy (EGD) History of eyelid surgery History of sleeve gastrectomy Hx of colonoscopy Hx of tubal ligation S/P trigger finger release Family History Family History Father Type II diabetes mellitus Obesity Mother HTN (hypertension) Brother Cancer Social History Social History Household Members: Spouse Housing: Apartment Do you presently have visiting nurse or other home services: Yes Alcohol intake: never Patient Tobacco Use Status: Former Tobacco user Quit Date: >30 yrs ago Tobacco use type: Cigarette Smoked in Last 30 Days: No e-Cigarette/Vaping Use: Never Used Use of substances other than those prescribed or required for medical reasons: No Advance Directives: No Advance Directives Information Provided: Yes service: No Current occupational status: unemployed Current occupation: rt handed Physical Exam ED Vital Signs: Vital Signs - 24 hr 04/12/23 11:11 Temperature 98.7 F Pulse Rate 82 Respiratory Rate 16 Pulse Oximetry 98 Oxygen Delivery Method Room Air BMI result Body Mass Index 41.5 Vital signs were normal. Exam: General: Awake, alert in no distress Head: Normocephalic, atraumatic EENT: PERRL, Lids normal, sclera normal, conjunctiva normal, nose normal , ears normal, throat without erythema or exudates Neck: Supple, no adenopathy, trachea midline and nontender Lung: breath sounds symmetric, no wheezing, rales or rhonchi Chest: symmetric movement, nontender Heart: regular rate and rhythm, normal S1, S2 no murmurs or rubs Abdomen: soft, non-tender, nondistended, normal bowel sounds Back: no vertebral tenderness, no CVAT Extremities: no deformities, moves all extremities symmetrically Skin: no rashes, no lesion, normal color and warmth Neuro: Awake, alert, oriented, normal speech, cranial nerves intact, moves all extremities symmetrically Psych: Pleasant, cooperative Course Course Course Narrative: RME: 73 yold female with pmh of kidney stones presents to the ED for LLq pain and left flank pain with dark urine. Patient states UTI in the past. labs, UA, and abdominal CT scan ordered. Medications Administered Discontinued Medications Generic Name Dose Route Start Last Admin Trade Name Freq PRN Reason Stop Dose Admin Iohexol 85 ml 04/12/23 12:07 04/12/23 12:28 Iohexol 350 Mg/Ml 100 Ml Infus..Btl IV 04/12/23 12:08 Not Given ONCE ONE Medical Decision Making Medical Decision Making MDM Narrative: 73-year-old female who presents emergency department for evaluation of left lower quadrant abdominal pain that radiated to her back. The patient woke up this morning with the pain at 05:00 hours. The pain was a constant pain which resolved in the emergency department. The following evaluation was ordered: CBC, CMP, urinalysis, CT scan of the abdomen pelvis without IV contrast. 1442 Patient's laboratory evaluation was unremarkable. CT scan of the abdomen pelvis did not reveal any clear cause for the patient's pain. She does have an incidental lesion noted in her spleen which is most likely a cyst. This is not causing her pain I did discuss this with her and she is going to follow-up with her doctor to get an outpatient ultrasound to further evaluate the lesion. Patient was advised to take Tylenol was given prescription for this medication She was given printed and verbal instructions discharged home. Differential Diagnosis Differential Diagnoses: The differential diagnosis associated with the presentation includes Differential diagnosis includes was not limited to bladder infection, urinary tr act infection, renal colic, ureteral colic, renal stone, diverticulitis Admission/Observation Consideration of admission/observation: Escalation of care including admission/observation considered Lab Data MDM Lab Attestation statement: I reviewed the patient's lab results. My independent interpretation patient's laboratory evaluation as follows: CBC was normal. CMP was normal. Urinalysis was negative. No significant abnormalities to explain the patient's pain. 04/12/23 11:26 04/12/23 11:26 Labs: Lab Results 04/12/23 04/12/23 04/12/23 Range/Units 11:26 11:26 11:31 WBC 7.6 (4.8-10.8) X10*3/uL RBC 5.17 D (4.20-5.50) X10*6/uL Hgb 13.8 D (12.0-16.0) g/dl Hct 42.7 D (37.0-47.0) % MCV 82.6 (80.0-98.0) fL MCH 26.7 L (27.0-33.0) pg MCHC 32.3 (31.0-35.0) g/dl RDW 14.8 (11.0-16.0) % Plt Count 237 D (160-400) X10*3/uL MPV 11.3 (9.4-12.3) fL Immature Gran % (Auto) 0.3 (0.0-0.4) % Neut % (Auto) 63.9 (45-73) % Lymph % (Auto) 24.7 (20-40) % Nuckolls % (Auto) 9.0 (2-11) % Eos % (Auto) 1.8 (0-4) % Baso % (Auto) 0.3 (0-2) % Lymph # (Auto) 1.9 (1.2-4.9) X10*3/uL [place]oll[place] # (Auto) 0.7 (0.1-1.2) X10*3/uL Eos # (Auto) 0.1 (0.0-0.4) X10*3/uL Baso # (Auto) 0.0 (0.0-0.2) X10*3/uL Abs Immat Gran (auto) 0.02 (0.00-0.03) X10*3/uL Absolute Neuts (auto) 4.8 (2.0-8.3) x10*3/uL Absolute Nucleated RBC 0.000 (0.0-0.012) X10*3/uL Nucleated RBC % (auto) 0.0 (0.0-0.2) /100WBC Sodium 140 (135-145) mmol/L Potassium 4.3 (3.3-5.1) mmol/L Chloride 108 (96-108) mmol/L Carbon Dioxide 27 (22-29) mmol/L Anion Gap 9 L (12-20) BUN 12 (9-16) mg/dL Creatinine 0.64 (0.5-1.4) mg/dL Estim Creat Clear Calc 90.7 Estimated GFR > 60 Random Glucose 112 (60-115) mg/dL Calcium 9.8 D (8.4-10.2) mg/dL Total Bilirubin 0.3 (0.0-1.0) mg/dL AST 13 (5-31) U/L ALT 20 (0-31) U/L Alkaline Phosphatase 77 (39-117) U/L Total Protein 7.5 (6.5-8.0) g/dL Albumin 3.8 (3.5-5.0) g/dL Urine Color Yellow Urine Appearance Clear Urine pH 6.0 (5.0-9.0) Ur Specific [place] <= 1.005 (1.005-1.025) Urine Protein Negative (Neg-Trace) mg/dL Urine Glucose (UA) Negative (Negative) mg/dL Urine Ketones Negative (Negative) mg/dL Urine Blood Negative (Negative) Urine Nitrite Negative (Negative) Ur Leukocyte Esterase Trace H (Negative) Urine RBC 0-2 (0-2) /HPF Urine WBC 0-5 (0-5) /HPF Ur Squamous Epith Cells 0-2 (0-2) /HPF Urine Bacteria None Seen (None Seen) Hyaline Casts 0-2 (0-2) /LPF Radiology Impression Discussion of test interpretation with radiology: I have reviewed the radiologist's reading. Radiologist Impression: CT scan abdomen pelvis without IV contrast IMPRESSION: No acute findings. Postsurgical change from gastric sleeve procedure. 5 cm low-attenuation lesion in the inferior spleen increased from previous exam. This probably represents a cyst. This could be confirmed with ultrasound. Fleischner guidelines were followed. Dictated By:Ashli Howard MD Independent Historian Clinical information obtained from an independent historian. History obtained from or confirmed by: Spouse Prescription Management I considered prescription management with: Pain Medication Chronic Conditions Patient?s care impacted by: Diabetes, Hypertension and Other (Asthma) Discharge Plan Discharge Clinical Impression: Abdominal pain Qualifiers: Abdominal location: left lower quadrant Qualified Code(s): R10.32 - Left lower quadrant pain Patient Disposition: Home, Self-Care Instructions: Abdominal Pain (ED) Additional Instructions: Your blood work was normal. Your urinalysis was normal with no evidence for an infection. The CT scan of your abdomen pelvis did not reveal a clear cause for your pain. You do have a 5 cm cyst in the spleen and the radiologist is recommending that you get an ultrasound of your cyst as an outpatient. You need to discuss this with your doctor. I put the radiology impression below in you can show this to your doctor Take Tylenol (acetaminophen) 500 mg pills, 2 pills every 6 hours as needed for pain or fever. Follow-up with your doctor in 2 days. Please return to the emergency department if your symptoms get worse or if you develop any symptoms that are concerning to you. CT abdomen pelvis wo IV con IMPRESSION: No acute findings. Postsurgical change from gastric sleeve procedure. 5 cm low-attenuation lesion in the inferior spleen increased from previous exam. This probably represents a cyst. This could be confirmed with ultrasound. Fleischner guidelines were followed. Dictated By:Ashli Howard MD Prescriptions: New acetaminophen [Tylenol Extra Strength] 500 mg tablet 500 mg PO Q6H PRN (Reason: fever or pain) Qty: 30 0RF No Action Trulicity 1.5 mg/0.5 mL pen injector 1.5 mg subcut DEVRIES Qty: 2 4RF enoxaparin 40 mg/0.4 mL syringe 40 mg subcut Q24H 42 Days Qty: 16.8 0RF insulin lispro [Humalog U-100 Insulin] 100 unit/mL solution See Rx Instructions subcut TID Qty: 30 0RF Rx Instructions: Use up to 35 units today via CeQur device subcutaneously 3 times a day; subcutaneously 3 times a day; meclizine 25 mg tablet 25 mg PO DAILY PRN (Reason: dizziness) escitalopram oxalate 20 mg tablet 20 mg PO DAILY rosuvastatin 40 mg tablet 40 mg PO DAILY calcium carbonate-vitamin D3 600 mg-10 mcg (400 unit) tablet 1 tab PO Q12H (DME) CeQur Simplicity 2 unit device MISCELLANEOUS DIRECTED polyethylene glycol 3350 17 gram Powder In Packet 17 g PO DAILY Qty: 30 0RF sennosides-docusate sodium [Senna Plus] 8.6-50 mg Tablet 1 tab PO BEDTIME Qty: 30 0RF oxycodone [OxyContin] 10 mg Tablet,Oral Only,Ext.Rel.12 Hr 10 mg PO BID 20 Days Qty: 40 0RF Rx Instructions: Partial Fill upon patient request. oxycodone 5 mg capsule 5 mg PO Q6H PRN (Reason: pain (scale score 7-10)) Qty: 20 0RF Rx Instructions: Partial Fill upon patient request. insulin glargine 100 unit/mL (3 mL) insulin pen 24 unit subcut BEDTIME melatonin 5 mg tablet 10 mg PO BEDTIME gabapentin 100 mg capsule 0 mg PO Print Language: Turkmen
[2023-04-12 11:35] LABS: MANUAL DIFF FLAG NO
[2023-04-12 11:36] LABS: Basophils Percent Auto 0.3 % (0-2); Eosinophils Absolute Auto 0.1 X10*3/uL (0.0-0.4); Eosinophils Percent Auto 1.8 % (0-4); Hematocrit 42.7 % (37.0-47.0); Hemoglobin 13.8 g/dl (12.0-16.0); Imm Gran Abs Auto 0.02 X10*3/uL (0.00-0.03); Imm Gran Pct Auto 0.3 % (0.0-0.4); Lymphocytes Absolute Auto 1.9 X10*3/uL (1.2-4.9); Lymphocytes Percent Auto 24.7 % (20-40); Mean Corpuscular HGB Conc 32.3 g/dl (31.0-35.0); Mean Corpuscular Hemoglobin 26.7 pg (27.0-33.0); Mean Corpuscular Volume 82.6 fL (80.0-98.0); Mean Platelet Volume 11.3 fL (9.4-12.3); Monocytes Absolute Auto 0.7 X10*3/uL (0.1-1.2); Neutrophils Absolute Auto 4.8 x10*3/uL (2.0-8.3); Neutrophils Percent Auto 63.9 % (45-73); Platelet Count 237 X10*3/uL (160-400); Red Blood Count 5.17 X10*6/uL (4.20-5.50); Red Cell Distribution Width 14.8 % (11.0-16.0); White Blood Count 7.6 X10*3/uL (4.8-10.8)
[2023-04-12 11:40] LABS: Appearance Urine Clear; Color Urine Yellow; Glucose Urine UA Negative (Negative); Leukocyte Esterase Urine Trace (Negative); Nitrite Urine Negative (Negative); Specific Gravity - Urine <= 1.005 (1.005-1.025); UMIC TRIGGER UACC YES; Urine Blood Negative (Negative); Urine Ketones Negative (Negative); Urine Protein Negative (Neg-Trace)
[2023-04-12 11:45] LABS: Bacteria Urine None Seen (None Seen); Hyaline Casts Urine 0-2 /LPF (0-2); RBC Urine 0-2 /HPF (0-2); Squamous Epithelial Cell Urine 0-2 /HPF (0-2); WBC Urine 0-5 /HPF (0-5)
--- NOTE | 2023-04-12 11:49 | PC.NURSE ---
pt a&ox3, vss, pt coming in from home d/t recent left sided abdominal/flank pain. pt denies n/v/d at this time. pt also denies fever/chills. pt reports urine has been dark the past few days but denies hematuria and dysuria. call rojas placed within reach. will continue to monitor.
[2023-04-12 11:54] LABS: Alanine Aminotransferase 20 U/L (0-31); Albumin Level 3.8 g/dL (3.5-5.0); Alkaline Phosphatase 77 U/L (39-117); Anion Gap 9 (12-20); Aspartate Amino Transferase 13 U/L (5-31); Bilirubin Total 0.3 mg/dL (0.0-1.0); Blood Urea Nitrogen 12 mg/dL (9-16); Calcium 9.8 mg/dL (8.4-10.2); Carbon Dioxide 27 mmol/L (22-29); Chloride 108 mmol/L (96-108); Creatinine Clr Calc Pharmacy 90.7; Estimated Glomerular Filt Rate > 60; Glucose Random 112 mg/dL (60-115); Potassium 4.3 mmol/L (3.3-5.1); Sodium 140 mmol/L (135-145); Total Protein 7.5 g/dL (6.5-8.0)
== END 2023-04-12 14:53 | disposition home or self-care (01) ==
PROVIDERS: Physician Assistant; Emergency Provider Emergency Medicine Emergency Medical Services; PCP Internal Medicine
DX: R10.32 Left lower quadrant pain (principal); M54.50 Low back pain, unspecified; Z87.891 Personal history of nicotine dependence; Z79.899 Other long term (current) drug therapy
CPT/HCPCS: 36415; 74176; 80053; 81001; 85025; 99284; Q9967

== ENCOUNTER 2023-05-19 14:24 | Outpatient (AMB) | payer OTHER, SELFPAY ==
[2023-05-19 15:07] VITALS: PULSE 65; O2SAT 96; BMI 41.5
--- NOTE | 2023-05-19 15:07 | A.OFFVIS_ITS ---
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 The patient overall has been complaining of increasing daytime drowsiness. She also complains of headaches. She has significant snoring and sometimes wakes her up from a sound sleep. The patient initially had CPAP. However, she was not getting used to the machine and the mask. Therefore she stopped it. Now she has had increased cardiovascular risk factors including have consider anemia hypertension diabetes and she is concerning that her daytime drowsiness is getting worse. Therefore this time the patient needs to undergo a repeat sleep study in order to get air situated with CPAP again. In the meantime she also has diagnosis of asthma. She does have a rescue inhaler that she seldom uses. She also uses Breo daily. 08/05/2021 the patient is here for a pulmonary follow-up visit. The patient overall has been doing Well. She continues to have daytime drowsiness with an elevated Henderson score of 10/24. She did undergo a home sleep study. Her AHI was up to 15. She had significant apneic episodes max duration was 90 seconds. She also had some did saturations during the apneic episodes. The patient needs to start CPAP therapy at this time. Will make arrangements to start APAP with local DME company at this time. In the meantime she continues to use her rescue inhaler as needed. She has not required the Advair. Otherwise patient is without any other complaints. 05/18/2023 the patient is here for a pulmonary follow-up visit. The patient has been lost to follow-up. The patient was last seen back in 2020 and she did have moderate degree of sleep apnea. The patient was started on CPAP. The CPAP actually has been very affecting beneficial. She has a hard time being without it. She does use it for more than 4 hours a night. But at some point she started getting supplies primarily because she probably did follow-up in the office although I am sure she still active with the [employer] company, [employer]. I did reach out to [employer] so they can not give me additional information. I will send a script out to [employer] to make sure that she gets reactivated and get supplies in order for her to continue using the CPAP safely. In the meantime she does have the P 10 nasal pillows which she likes. I do not have a pillow available so therefore I did provide her with a N30i SW mask, which she felt very comfortable with. Therefore she will try this mass and I will also request from the [employer]. In the meantime she also has a sister asthma. She has been stable. She has not had to use her rescue inhaler. She has not had any flare- ups and has not use any prednisone either. Overall the patient is doing well from that standpoint. Therefore will have to just get a situated with CPAP. Will make sure she has a her refills. If the patient is not active with the [employer] explained to her that she may need to undergo a repeat sleep study. [facility] Medical History Anxiety Asthma Diabetes type 2, uncontrolled Diabetic polyneuropathy associated with type 2 diabetes mellitus Dyslipidemia Hypertension Morbid obesity Obesity Obesity due to excess calories REY (obstructive sleep apnea) Panic attack Vitamin D deficiency Surgical History H/O foot surgery History of carpal tunnel release History of dilatation and curettage History of esophagogastroduodenoscopy (EGD) History of eyelid surgery History of sleeve gastrectomy Hx of colonoscopy Hx of tubal ligation S/P trigger finger release Family History Father Type II diabetes mellitus Obesity Mother HTN (hypertension) Brother Cancer Social History Household Members: Spouse Housing: Apartment Do you presently have visiting nurse or other home services: Yes Alcohol intake: never Patient Tobacco Use Status: Former Tobacco user Quit Date: >30 yrs ago Tobacco use type: Cigarette e-Cigarette/Vaping Use: Never Used service: No Current occupational status: unemployed Current occupation: rt handed Review of Systems Const Reports daytime sleepiness, Denies night sweats, Reports snoring, Reports stops breathing during sleep and Reports weight gain ENT Denies change in voice, Denies lip swelling, Denies mouth pain, Reports nasal congestion, Reports nasal discharge and Denies tongue swelling Card Denies chest pain and Reports dyspnea on exertion Resp Reports cough, Reports dyspnea on exertion, Reports snoring and Reports wheezing GI Denies abdominal pain Musc Denies no additional complaints Neuro Denies Neuro-related abnormal movements Psych Denies no additional complaints Luis Miguel/Lymph Denies easy bleeding and Denies lymphadenopathy Aller/Immun Denies lip swelling, Denies tongue swelling and Reports wheezing Physical Exam Vital Signs: Last Vital Signs Pulse 65 05/19/23 15:07 Pulse Ox 96 05/19/23 15:07 Oxygen Delivery Method Room Air 05/19/23 15:07 BMI result Body Mass Index 41.5 Const General: alert Neck Neck: Yes normal visual inspection, Yes full ROM and Yes no lymphadenopathy Chest Chest palpation & inspection: normal inspection of the chest Resp Auscultation: diminished lung sounds Cardio Rate: regular rate Rhythm: regular rhythm Heart sounds: S1 normal heart sound present and S2 normal heart sound present GI Palpation (GI): Soft to palpation and nontender Auscultation: normal bowel sounds Skin General skin exam: rashes and/or lesions noted Assessment & Plan Assessment & Plan (1) REY (obstructive sleep apnea): Comment: cpap Code(s): G47.33 - Obstructive sleep apnea (adult) (pediatric) (2) Asthma: Code(s): J45.909 - Unspecified asthma, uncomplicated Qualifiers: Asthma severity: moderate Asthma persistence: persistent Asthma complication type: uncomplicated Qualified Code(s): J45.40 - Moderate persistent asthma, uncomplicated Plan continue APAP 6-16 at this time, needs supplies. Provided with N30i SW will send a script to her [employer]. If she is no longer active, she may need to her a repeat PSG Stopped Breo EDWIGE needed F/U 6 months Coding Level of Care Code Est Pt Level 4 (08250) Diagnoses REY (obstructive sleep apnea) G47.33 Moderate persistent asthma without complication J45.40 Asthma severity: moderate Asthma persistence: persistent Asthma complication type: uncomplicated Time Spent (min) 16
== END 2023-05-19 15:42 | disposition home or self-care (01) ==
PROVIDERS: PCP Internal Medicine; Visit Provider Hospitalist
DX: G47.33 Obstructive sleep apnea (adult) (pediatric) (principal); J45.40 Moderate persistent asthma, uncomplicated
CPT/HCPCS: 99214

== ENCOUNTER → 2023-05-19 14:24 | Outpatient (BNVA) | payer OTHER, SELFPAY | PROVIDERS: PCP Internal Medicine; Visit Provider Hospitalist | DX: J45.40 Moderate persistent asthma, uncomplicated (principal); G47.33 Obstructive sleep apnea (adult) (pediatric); Z87.891 Personal history of nicotine dependence | CPT/HCPCS: 99212 ==

== ENCOUNTER 2023-06-04 14:00 | Outpatient (RCR) | payer OTHER, SELFPAY ==
--- NOTE | 2023-04-24 13:43 | MHC.PT.EP ---
[facility] [place] Office [place] Office [place] [facility] [address] Rip Winkler [address] [phone] F: [phone] F: [phone] F: [phone] F: [phone] Physical Therapy Plan of Care Date of Evaluation: Date of Surgery: 12/08/22 Diagnosis: tibial fracture s/p ORIF 12/08/22 (RL) distal fibular fracture (non op management) Assessment: pt is a 49 y/o female presenting to physical therapy w/ referring diagnosis of S82.202A unspecified fracture of shaft of left tibia, initial encounter for closed fracture. Impairments include pain, decreased range of motion, decreased strength, impaired functional mobility, impaired postural awareness, and altered ambulation mechanics. pt is a good candidate for skilled PT due to age, potential remediation of impairments, typical disease/condition progression and prognosis, comorbidities, and motivation. pt would benefit from skilled PT intervention to provide a tailored strengthening and stretching exercise program, functional training, gait training, postural re-training, neuromuscular re-education, modalities as needed for pain, equipment safety demonstration. Frequency and Duration: The patient will be seen 2x/wk for 6 weeks Short Term Goals: pt will be I w/ HEP to promote self-management of condition. pt will improve L knee extension strength by 1 MMT grade to promote ease in sit<>stand transfer. Intermediate Goals: pt will ambulation mod I w/ LRAD household distances w/ reports of <3/10 knee pain. pt will ascend/descend 13 stairs mod I to promote access to primary living spaces. Treatment Plan: Modalities to reduce pain, spasms and effusion. Manual therapy to restore motion and function. Therapeutic exercise to improve strength and flexibility. Neuromuscular re-education for posture and balance. Therapeutic activities to return to functional activities of daily living. Electronically signed by: Tona Lutz PT, DPT Please sign and return to therapist. Thank you for your referral.
--- NOTE | 2023-07-02 10:23 | MHC.PT.EP ---
[facility] [place] Office [place] Office [place] Office [address] Rip Winkler [address] [phone] F: [phone] F: [phone] F: [phone] F: [phone] Physical Therapy Plan of Care Date of Evaluation: 04/24/23 Date of Surgery: 12/08/22 Diagnosis: tibial fracture s/p ORIF 12/08/22 (RL) distal fibular fracture (non op management) Assessment: pt is a 49 y/o female presenting to physical therapy w/ referring diagnosis of S82.202A unspecified fracture of shaft of left tibia, initial encounter for closed fracture. Impairments include pain, decreased range of motion, decreased strength, impaired functional mobility, impaired postural awareness, and altered ambulation mechanics. pt is a good candidate for skilled PT due to age, potential remediation of impairments, typical disease/condition progression and prognosis, comorbidities, and motivation. pt would benefit from skilled PT intervention to provide a tailored strengthening and stretching exercise program, functional training, gait training, postural re-training, neuromuscular re-education, modalities as needed for pain, equipment safety demonstration. Frequency and Duration: The patient will be seen 2x/wk for 6 weeks Short Term Goals: pt will be I w/ HEP to promote self-management of condition. pt will improve L knee extension strength by 1 MMT grade to promote ease in sit<>stand transfer. Halfway Goals: pt will ambulation mod I w/ LRAD household distances w/ reports of <3/10 knee pain. pt will ascend/descend 13 stairs mod I to promote access to primary living spaces. Treatment Plan: Modalities to reduce pain, spasms and effusion. Manual therapy to restore motion and function. Therapeutic exercise to improve strength and flexibility. Neuromuscular re-education for posture and balance. Therapeutic activities to return to functional activities of daily living. Electronically signed by: Tona Lutz PT, DPT Please sign and return to therapist. Thank you for your referral.
== END 2023-07-02 10:23 | disposition home or self-care (01) ==
LOC: HO.PT 14:00
PROVIDERS: PCP Internal Medicine; Visit Provider Orthopaedic Surgery
DX: S82.142D Displaced bicondylar fracture of left tibia, subsequent encounter for closed fracture with routine healing (principal)
CPT/HCPCS: 97110; 97116; 97163

== ENCOUNTER 2023-06-25 11:51 | Outpatient (REF) | payer OTHER, SELFPAY ==
--- NOTE | ~2023-06-25 | XR_ITS ---
EXAMINATION: XR KNEE STANDING, BILATERAL XR KNEE, LEFT XR TIBIA AND FIBULA, LEFT CLINICAL INFORMATION: Pain in unspecified knee. COMPARISON: 04/02/2023 left tibia/fibula. 12/05/2022 CT scan left knee. 09/16/2022 bilateral knees. TECHNIQUE: AP standing view of bilateral knees. Lateral and sunrise views left knee. AP and lateral views left lower leg. FINDINGS: LEFT TIBIA AND FIBULA: Redemonstration of lateral tibial plate and screws transfixing previously noted comminuted mid tibial fracture. Fracture line is less visible with evidence of interval callus formation. Hardware appears intact. Alignment is maintained. Previously identified oblique distal fibular fracture less conspicuous with evidence of some interval healing. Bones are diffusely demineralized. LEFT KNEE: Trace joint effusion. Mild patellofemoral degenerative changes. Moderate narrowing lateral compartment of the left knee with marginal osteophytes. Cortical concave defect at the left lateral tibial plateau with dense sclerotic material in the proximal lateral subjacent tibia. RIGHT KNEE: AP standing view of the right knee demonstrates moderate lateral joint space narrowing and small lateral marginal osteophytes. XR/XR knee standing BI IMPRESSION: 1. Healing comminuted fracture mid tibia with lateral tibial plate and screws, stable alignment. Cortical concave defect at the left lateral tibial plateau with dense sclerotic material in the proximal lateral subjacent tibia. 2. Moderate degenerative changes in the bilateral knees. .
--- NOTE | ~2023-06-25 | XR_ITS ---
EXAMINATION: XR KNEE STANDING, BILATERAL XR KNEE, LEFT XR TIBIA AND FIBULA, LEFT CLINICAL INFORMATION: Pain in unspecified knee. COMPARISON: 04/02/2023 left tibia/fibula. 12/05/2022 CT scan left knee. 09/16/2022 bilateral knees. TECHNIQUE: AP standing view of bilateral knees. Lateral and sunrise views left knee. AP and lateral views left lower leg. FINDINGS: LEFT TIBIA AND FIBULA: Redemonstration of lateral tibial plate and screws transfixing previously noted comminuted mid tibial fracture. Fracture line is less visible with evidence of interval callus formation. Hardware appears intact. Alignment is maintained. Previously identified oblique distal fibular fracture less conspicuous with evidence of some interval healing. Bones are diffusely demineralized. LEFT KNEE: Trace joint effusion. Mild patellofemoral degenerative changes. Moderate narrowing lateral compartment of the left knee with marginal osteophytes. Cortical concave defect at the left lateral tibial plateau with dense sclerotic material in the proximal lateral subjacent tibia. RIGHT KNEE: AP standing view of the right knee demonstrates moderate lateral joint space narrowing and small lateral marginal osteophytes. XR/XR tibia fibula LT 2V IMPRESSION: 1. Healing comminuted fracture mid tibia with lateral tibial plate and screws, stable alignment. Cortical concave defect at the left lateral tibial plateau with dense sclerotic material in the proximal lateral subjacent tibia. 2. Moderate degenerative changes in the bilateral knees. .
--- NOTE | ~2023-06-25 | XR_ITS ---
EXAMINATION: XR KNEE STANDING, BILATERAL XR KNEE, LEFT XR TIBIA AND FIBULA, LEFT CLINICAL INFORMATION: Pain in unspecified knee. COMPARISON: 04/02/2023 left tibia/fibula. 12/05/2022 CT scan left knee. 09/16/2022 bilateral knees. TECHNIQUE: AP standing view of bilateral knees. Lateral and sunrise views left knee. AP and lateral views left lower leg. FINDINGS: LEFT TIBIA AND FIBULA: Redemonstration of lateral tibial plate and screws transfixing previously noted comminuted mid tibial fracture. Fracture line is less visible with evidence of interval callus formation. Hardware appears intact. Alignment is maintained. Previously identified oblique distal fibular fracture less conspicuous with evidence of some interval healing. Bones are diffusely demineralized. LEFT KNEE: Trace joint effusion. Mild patellofemoral degenerative changes. Moderate narrowing lateral compartment of the left knee with marginal osteophytes. Cortical concave defect at the left lateral tibial plateau with dense sclerotic material in the proximal lateral subjacent tibia. RIGHT KNEE: AP standing view of the right knee demonstrates moderate lateral joint space narrowing and small lateral marginal osteophytes. XR/XR knee LT 2V IMPRESSION: 1. Healing comminuted fracture mid tibia with lateral tibial plate and screws, stable alignment. Cortical concave defect at the left lateral tibial plateau with dense sclerotic material in the proximal lateral subjacent tibia. 2. Moderate degenerative changes in the bilateral knees. .
== END 2023-06-25 11:52 | disposition home or self-care (01) ==
LOC: HO.HOSX 11:51
PROVIDERS: Visit Provider Orthopaedic Surgery
DX: S82.142A Displaced bicondylar fracture of left tibia, initial encounter for closed fracture (principal); S42.292A Other displaced fracture of upper end of left humerus, initial encounter for closed fracture; M25.562 Pain in left knee
CPT/HCPCS: 20610; 73560; 73565; 73590; 99212; J1100

== ENCOUNTER 2023-06-25 11:57 | Outpatient (AMB) | payer OTHER, SELFPAY ==
--- NOTE | 2023-06-25 12:01 | A.OFFVIS_ITS ---
Intake Vital Signs 06/25/23 12:12 Height 5 ft 2 in Weight 227 lb BMI 41.5 Intake Visit Reasons: OV-ORIF left tibia 12/08/22 s/p Intake Note: Halley is a 73 year old female who presents today for a follow up of her left tibia, s/p Left Tibia ORIF 12/08/22. She also fractured her left humerus when she fell on 12/04/2022. At her last visit she was instructed to begin to WBAT and wean out of boot Allergies seasonal Allergy (Intermediate, Uncoded 06/25/23 12:13) cough HPI OV-ORIF left tibia 12/08/22 s/p HPI Details Halley is a 73 year old right hand dominant woman who presents ~6 1/2 months S/P left tibia ORIF. She also has a left humerus Fx from a fall, DOI: 12/04/22. She says she is has pain with ambulation. The pain is left knee. She also complains of left shoulder pain from using assistive device. this botyhers her at night. At her last appointment she was to work on transitioning to WBAT with a walker, in street shoes, and to wean off her Oxycodone use She has completed her second course of PT. [facility] Medical History Panic attack Anxiety Obesity due to excess calories Asthma REY (obstructive sleep apnea) Morbid obesity Vitamin D deficiency Obesity Dyslipidemia Hypertension Diabetic polyneuropathy associated with type 2 diabetes mellitus Diabetes type 2, uncontrolled Surgical History History of carpal tunnel release S/P trigger finger release H/O foot surgery History of dilatation and curettage History of sleeve gastrectomy History of esophagogastroduodenoscopy (EGD) History of eyelid surgery Hx of tubal ligation Hx of colonoscopy Family History Father Type II diabetes mellitus Obesity Mother HTN (hypertension) Brother Cancer Social History Household Members: Spouse Housing: Apartment Do you presently have visiting nurse or other home services: Yes Alcohol intake: never Patient Tobacco Use Status: Former Tobacco user Quit Date: >30 yrs ago Tobacco use type: Cigarette e-Cigarette/Vaping Use: Never Used service: No Current occupational status: unemployed Current occupation: rt handed Review of Systems Const All systems reviewed & are unremarkable except as noted in HPI and below Physical Exam Vital Signs: BMI result Body Mass Index 41.5 Const General: no acute distress, alert and awake Orientation/consciousness: patient oriented x3 HEENT Head: Yes normocephalic and Yes atraumatic Eyes EOM: EOMs intact bilaterally Resp Effort & Inspection: normal respiratory effort and able to speak in complete sentences Cardio Jugular venous distension: no JVD Skin General skin exam: turgor normal Rashes: no rashes Neuro General: patient oriented x3 Extrem Other: TTP Stable left knee to v/v/a/p stress No effusion lateral joint line ttp Psych Appearance: grossly normal Affect: normal affect Attitude: cooperative Office Procedures Joint Injection/Drain Joint Injection/Drain Details: Injected 1 mL of Decadron and 3 mL 1% lidocaine and 3 mL of 0.25% Marcaine. Site was prepped using aseptic technique. Patient tolerated the procedure well. Primary Site: left shoulder Approach Used: posterolateral Coding 28354 - Large joint Procedure code (CPT) selection complete Results Reviewed Results Reviewed: 06/25/23 12:27 BUPivacaine MPF 0.25 % [Sensorcaine-MPF 0.25% 10 ML] 10 ml .ROUTE .STK-MED ONE Lidocaine HCl 2 % MPF [Xylocaine 2 % MPF] 5 ml .ROUTE .STK-MED ONE dexAMETHasone sod phosphate [Decadron] 4 mg .ROUTE .STK-MED ONE I personally reviewed relevant radiographs. Left tibial shaft and tibial plateau fracture that are healing. No hardware complications Assessment & Plan Assessment & Plan (1) Fracture of shaft of left tibia: Comment: left tibial shaft fracture ORIF 12/08/2022 NE Code(s): S82.A - Unspecified fracture of shaft of left tibia, initial encounter for closed fracture Plan: This is a 73 year old woman S/P left tibial plateau & shaft fracture ORIF, DOS: 12/08/22. 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 I recommend continue activity as tolerated and will consider KIRIT in 3 months. May require TKA in future (2) Fracture of left tibial plateau: Comment: left tibial plateau ORIF 12/08/2022 NE Code(s): S82.142A - Displaced bicondylar fracture of left tibia, initial encounter for closed fracture (3) Fracture of head of left humerus: Comment: 12/04/2022 status post a mechanical fall. Code(s): S42.292A - Other displaced fracture of upper end of left humerus, initial encounter for closed fracture Plan: Injected left shoulder SAS Orders: Orders XR tibia fibula LT 2V 06/25/23 S82.142A - Displaced bicondylar fracture of left tibia, initial encounter for closed fracture XR knee standing BI 06/25/23 M25.569 - Pain in unspecified knee XR knee LT 2V 06/25/23 M25.569 - Pain in unspecified knee Coding Level of Care Code Est Pt Level 4 (07644) Diagnoses Fracture of shaft of left tibia S82.202A Fracture of left tibial plateau S82.142A Fracture of head of left humerus S42.292A CPT Codes Coding - 83224 Large joint: 48705 - Large joint ([id number])
[2023-06-25 12:12] VITALS: BMI 41.5
== END 2023-06-25 12:56 | disposition home or self-care (01) ==
PROVIDERS: PCP Internal Medicine; Visit Provider Orthopaedic Surgery
DX: S82.142D Displaced bicondylar fracture of left tibia, subsequent encounter for closed fracture with routine healing (principal); S42.292D Other displaced fracture of upper end of left humerus, subsequent encounter for fracture with routine healing; M25.512 Pain in left shoulder
CPT/HCPCS: 20610; 99214

== ENCOUNTER 2023-09-23 12:40 | Outpatient (AMB) | payer OTHER, SELFPAY ==
--- NOTE | 2023-09-23 12:57 | MHC.OFFVIS ---
Intake Vital Signs 09/23/23 12:58 Height 5 ft 2 in Weight 240 lb 1.334 oz BMI 43.9 BP 126/82 Blood Pressure Location Lt brachial Position Sitting Pulse 78 Pulse Source Pulse Oximeter Intake Visit Reasons: DM-confirmed Intake Note: Patient presents today to follow up on D2MT. Last Diabetic Eye exam:Patient can't remember last time she had exam. Last Podiatry Visit: None Random Glucose: 276 mg/dl HgA1C:8.1% Assistant Professor Of Dietetics Required: Yes Assistant Professor Of Dietetics Language: Coil Former Name: [facility] Information Interpreted: non-clinical & clinical Accompanied by: Spouse Allergies seasonal Allergy (Intermediate, Uncoded 06/25/23 12:13) cough HPI HPI Comments History of Present Illness Details Patient is 73-year-old female with DM type 2 diagnosed 1993 who presents for management of diabetes. Past medical history:Dm2, HTN, HLD, gastric sleeve 02/15/19 Micro and macrovascular complications: retinopathy, nephropathy, neuropathy, Diabetes medications: Synjardy XR 25/1,000not taking because can't tolerate nausea . trulicity 1.5 mg Qwkly Intolerant of regular metformin due to diarrhea Lantus 24 units Humalog 6 units Ac by Cecur device Blood glucose monitoring: In the past 2 weeks, [employer] download shows sensors be used 24% of the time. Average glucose is 176 with variability 37.9%. 56% in target with 26% hyperglycemia and 18% very hyperglycemic and 0% hyperglycemia Symptoms reported: denies numbness, tingling, cramping in lower extremities Hypoglycemia: denies Hyperglycemia: + urinary frequency, + nocturia, denies polydypsia Exercise: has not been walking. 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 Ophthalmology evaluation: 3 mos a go . Reports anti-VGEF therapy. 10/13/20 10/22/20 01/23/21 09:00 Unknown 11:16 Creatinine Estimated GFR Hemoglobin A1c % 6.7 Triglycerides Cholesterol LDL Cholesterol Di rect HDL Cholesterol TSH 2.63 Microalb/Creat Rat io 18.8 02/09/21 02/09/21 07:30 07:30 Creatinine 0.66 Estimated GFR > 60 Hemoglobin A1c % Triglycerides 154 Cholesterol 177 LDL Cholesterol Di rect 101 H HDL Cholesterol 52 TSH Microalb/Creat Rat io PFSH Medical History Panic attack Anxiety Obesity due to excess calories Asthma REY (obstructive sleep apnea) Morbid obesity Vitamin D deficiency Obesity Dyslipidemia Hypertension Diabetic polyneuropathy associated with type 2 diabetes mellitus Diabetes type 2, uncontrolled Surgical History History of carpal tunnel release S/P trigger finger release H/O foot surgery History of dilatation and curettage History of sleeve gastrectomy History of esophagogastroduodenoscopy (EGD) History of eyelid surgery Hx of tubal ligation Hx of colonoscopy Family History Father Type II diabetes mellitus Obesity Mother HTN (hypertension) Brother Cancer Social History Household Members: Spouse Housing: Apartment Do you presently have visiting nurse or other home services: Yes Alcohol intake: never Patient Tobacco Use Status: Former Tobacco user Quit Date: >30 yrs ago Tobacco use type: Cigarette e-Cigarette/Vaping Use: Never Used service: No Current occupational status: unemployed Current occupation: rt handed Physical Exam Absence of Cushingoid features. Absence of acromegalic features. Neck exam reveals nl size thyroid about 15 gms. No thyroid nodules palpable. No carotid bruits present. Lungs CTA. Heart S1 S2, Reg R/R. No M/R/ G. Skin exam reveals absence of vitiligo or acanthosis nigricans. Abdominal exam reveals Soft NT/ND with NA BS. No organomegaly present. Neck Other: . Extrem Other: Visual exam of foot performed. No ulcerations or open lesions. No onchomycosis, no callouses.Pulses 2 + distally Sensation intact to monofilament exam. Vibratory sensation sensed is Decreased with 128 Hz tuning fork Results AMB Hemoglobin A1c AMB Hemoglobin A1c 8.1 % Last Edit by Halley Powers on 09/23/23 13:24 Assessment & Plan Assessment & Plan (1) Diabetes type 2, uncontrolled: Code(s): E11.65 - Type 2 diabetes mellitus with hyperglycemia Qualifiers: Glycemic state: with hyperglycemia Qualified Code(s): E11.65 - Type 2 diabetes mellitus with hyperglycemia Plan: This is 73-year-old female with a history of type 2 diabetes being treated with Trulicity and basal-bolus insulin with poor deteriorated glycemic control and known microvascular complications namely retinopathy, neuropathy and nephropathy. She claims to be intolerant to metformin or metformin /Jardiance combination The plan is to have the patient scan more frequently with the Walter. . Could not make any changes to the regimen because of lack of data. Once we have more information, could either adjust insulin regimen or switch Trulicity to Mounjaro. Will have patient follow up with health promotion educator Orders: Orders AMB Hemoglobin A1c Today E11.9 - Type 2 diabetes mellitus without complications Coding Level of Care Code Est Pt Level 4 (42080) Diagnoses Uncontrolled type 2 diabetes mellitus with hyperglycemia E11.65 Glycemic state: with hyperglycemia
[2023-09-23 12:58] VITALS: BP 126/82; PULSE 78; BMI 43.9
[2023-09-23 13:14] LABS: Glucose, Whole Blood 276 mg/dL (60-115)
== END 2023-09-23 13:26 | disposition home or self-care (01) ==
PROVIDERS: PCP Internal Medicine; Visit Provider Internal Medicine Endocrinology, Diabetes & Metabolism
DX: E11.65 Type 2 diabetes mellitus with hyperglycemia (principal); E11.9 Type 2 diabetes mellitus without complications
CPT/HCPCS: 99214

== ENCOUNTER → 2023-09-23 12:40 | Outpatient (BNVA) | payer OTHER, SELFPAY | PROVIDERS: PCP Internal Medicine; Visit Provider Internal Medicine Endocrinology, Diabetes & Metabolism | DX: E11.65 Type 2 diabetes mellitus with hyperglycemia (principal) | CPT/HCPCS: 82947; 83036; 99212 ==

== ENCOUNTER 2023-09-24 12:27 | Outpatient (REF) | payer OTHER, SELFPAY ==
--- NOTE | ~2023-09-24 | XR_ITS ---
STUDY: Left shoulder and left tibia and fibula INDICATION: Left shoulder pain, follow-up tibial fracture COMPARISON: 06/25/2023 tibia and fibula TECHNIQUE: 3 view left shoulder, 2 view left tibia and fibula FINDINGS: Left shoulder: Nonacute appearing fracture involving the left humeral head/neck and greater tuberosity. Acromioclavicular and glenohumeral joints are maintained. Visualized lung and ribs are unremarkable. Left tibia and fibula: No change in appearance of sideplate and screws traversing healing mid tibial fracture. Dense sclerotic material proximal tibia is unchanged. Oblique distal fibular fractures are stable in appearance without evidence of displacement. Posterior plantar spurring. XR/XR tibia fibula LT 2V IMPRESSION: Old left humeral fracture. No acute shoulder pathology. Stable left tibial ORIF and distal left fibular fractures.
--- NOTE | ~2023-09-24 | XR_ITS ---
STUDY: Left shoulder and left tibia and fibula INDICATION: Left shoulder pain, follow-up tibial fracture COMPARISON: 06/25/2023 tibia and fibula TECHNIQUE: 3 view left shoulder, 2 view left tibia and fibula FINDINGS: Left shoulder: Nonacute appearing fracture involving the left humeral head/neck and greater tuberosity. Acromioclavicular and glenohumeral joints are maintained. Visualized lung and ribs are unremarkable. Left tibia and fibula: No change in appearance of sideplate and screws traversing healing mid tibial fracture. Dense sclerotic material proximal tibia is unchanged. Oblique distal fibular fractures are stable in appearance without evidence of displacement. Posterior plantar spurring. XR/XR shoulder LT min 2V IMPRESSION: Old left humeral fracture. No acute shoulder pathology. Stable left tibial ORIF and distal left fibular fractures.
== END 2023-09-24 12:28 | disposition home or self-care (01) ==
LOC: HO.HOSX 12:27
PROVIDERS: Visit Provider Orthopaedic Surgery
DX: M25.512 Pain in left shoulder (principal); S42.292A Other displaced fracture of upper end of left humerus, initial encounter for closed fracture; S82.142A Displaced bicondylar fracture of left tibia, initial encounter for closed fracture; W18.30XA Fall on same level, unspecified, initial encounter; Y93.9 Activity, unspecified; Y92.9 Unspecified place or not applicable; Y99.9 Unspecified external cause status
CPT/HCPCS: 73030; 73590; 99212

== ENCOUNTER 2023-09-24 13:46 | Outpatient (AMB) | payer OTHER, SELFPAY ==
[2023-09-24 14:22] VITALS: BMI 43.9
--- NOTE | 2023-09-24 14:22 | MHC.OFFVIS ---
Intake Vital Signs 09/24/23 14:22 Height 5 ft 2 in Weight 240 lb BMI 43.9 Intake Visit Reasons: OV-ORIF left tibia 12/08/22 s/p Intake Note: Halley is a 73 year old female who presents today for a follow up of her left tibia, s/p Left Tibia ORIF 12/08/22. She also fractured her left humerus when she fell on 12/04/2022. At her last visit on 06/25/23 there was discussion of KIRIT and the Left shoulder was injected. Allergies seasonal Allergy (Intermediate, Uncoded 06/25/23 12:13) cough HPI OV-ORIF left tibia 12/08/22 s/p HPI Details Halley is a 73 year old right hand dominant woman who presents ~9 1/2 months S/P left tibia ORIF. She also has a healed left humerus Fx S/P fall, DOI: 12/04/22. She presents to discuss a possible KIRIT procedure. She continues to have some pain with activity. [facility] Medical History Panic attack Anxiety Obesity due to excess calories Asthma REY (obstructive sleep apnea) Morbid obesity Vitamin D deficiency Obesity Dyslipidemia Hypertension Diabetic polyneuropathy associated with type 2 diabetes mellitus Diabetes type 2, uncontrolled Surgical History History of carpal tunnel release S/P trigger finger release H/O foot surgery History of dilatation and curettage History of sleeve gastrectomy History of esophagogastroduodenoscopy (EGD) History of eyelid surgery Hx of tubal ligation Hx of colonoscopy Family History Father Type II diabetes mellitus Obesity Mother HTN (hypertension) Brother Cancer Social History Household Members: Spouse Housing: Apartment Do you presently have visiting nurse or other home services: Yes Alcohol intake: never Patient Tobacco Use Status: Former Tobacco user Quit Date: >30 yrs ago Tobacco use type: Cigarette e-Cigarette/Vaping Use: Never Used service: No Current occupational status: unemployed Current occupation: rt handed Review of Systems Const All systems reviewed & are unremarkable except as noted in HPI and below Physical Exam Vital Signs: BMI result Body Mass Index 43.9 Const General: no acute distress, alert and awake Orientation/consciousness: patient oriented x3 HEENT Head: Yes normocephalic and Yes atraumatic Eyes EOM: EOMs intact bilaterally Resp Effort & Inspection: normal respiratory effort and able to speak in complete sentences Cardio Jugular venous distension: no JVD Skin General skin exam: turgor normal Rashes: no rashes Neuro General: patient oriented x3 Extrem Other: 70 abd left hsoulder and 15 deg ER Rectuitment required for abduction Left knee with varus alignement no ttp no effusion antalgic gait Psych Appearance: grossly normal Affect: normal affect Attitude: cooperative Results Reviewed Results Reviewed: I personally reviewed relevant radiographs. Left proximal humerus fracture healed in acceptable alignment Left tibia with healed shaft fracture and healed tibial plateau Assessment & Plan Assessment & Plan (1) Fracture of head of left humerus: Comment: 12/04/2022 status post a mechanical fall. Code(s): S42.292A - Other displaced fracture of upper end of left humerus, initial encounter for closed fracture Plan: rtc arthropathy non dominant hand no pain (2) Fracture of shaft of left tibia: Comment: left tibial shaft fracture ORIF 12/08/2022 NE Code(s): S82.202A - Unspecified fracture of shaft of left tibia, initial encounter for closed fracture (3) Fracture of left tibial plateau: Comment: left tibial plateau ORIF 12/08/2022 NE Code(s): S82.142A - Displaced bicondylar fracture of left tibia, initial encounter for closed fracture Plan: left knee with varus alignment and antalgic gait f/u 3 months to discuss KIRIT. She is not ready yet and although her gait tolerance is poor she is not in pain Plan Prepared for Doc Cortez MD by To Luque medical certification specialist, on 09/24/23 at 2:25 PM, EST. Orders: Orders XR tibia fibula LT 2V 09/24/23 S82.202A - Unspecified fracture of shaft of left tibia, initial encounter for closed fracture XR shoulder LT min 2V 09/24/23 M25.519 - Pain in unspecified shoulder Coding Level of Care Code Est Pt Level 3 (36601) Diagnoses Fracture of head of left humerus S42.292A Fracture of shaft of left tibia S82.202A Fracture of left tibial plateau S82.142A
== END 2023-09-24 14:40 | disposition home or self-care (01) ==
PROVIDERS: PCP Internal Medicine; Visit Provider Orthopaedic Surgery
DX: S42.292A Other displaced fracture of upper end of left humerus, initial encounter for closed fracture (principal); S82.202A Unspecified fracture of shaft of left tibia, initial encounter for closed fracture; S82.142A Displaced bicondylar fracture of left tibia, initial encounter for closed fracture
CPT/HCPCS: 99213

== ENCOUNTER 2023-09-25 14:30 | Outpatient (AMB) | payer OTHER, SELFPAY ==
--- NOTE | 2023-09-25 15:14 | A.OFFVIS_ITS ---
Intake Intake Visit Reasons: f/u Type 2 DM Administrative Resources Associate Required: Yes Administrative Resources Associate Language: Devops Architect Name: Marina [facility] Information Interpreted: non-clinical & clinical Accompanied by: Spouse Allergies seasonal Allergy (Intermediate, Uncoded 06/25/23 12:13) cough HPI Comprehensive Diabetes Asmnt Most Recent Diabetes Results: Creatinine 0.64 mg/dL (0.5-1.4) 04/12/23 Blood Urea Nitrogen 12 mg/dL (9-16) 04/12/23 Sodium 140 mmol/L (135-145) 04/12/23 Potassium 4.3 mmol/L (3.3-5.1) 04/12/23 Chloride 108 mmol/L (96-108) 04/12/23 Carbon Dioxide 27 mmol/L (22-29) 04/12/23 Calcium 9.8 mg/dL (8.4-10.2) 04/12/23 AST 13 U/L (5-31) 04/12/23 ALT 20 U/L (0-31) 04/12/23 Total Protein 7.5 g/dL (6.5-8.0) 04/12/23 Albumin 3.8 g/dL (3.5-5.0) 04/12/23 [facility] Medical History Panic attack Anxiety Obesity due to excess calories Asthma REY (obstructive sleep apnea) Morbid obesity Vitamin D deficiency Obesity Dyslipidemia Hypertension Diabetic polyneuropathy associated with type 2 diabetes mellitus Diabetes type 2, uncontrolled Surgical History History of carpal tunnel release S/P trigger finger release H/O foot surgery History of dilatation and curettage History of sleeve gastrectomy History of esophagogastroduodenoscopy (EGD) History of eyelid surgery Hx of tubal ligation Hx of colonoscopy Family History Father Type II diabetes mellitus Obesity Mother HTN (hypertension) Brother Cancer Social History Household Members: Spouse Housing: Apartment Do you presently have visiting nurse or other home services: Yes Alcohol intake: never Patient Tobacco Use Status: Former Tobacco user Quit Date: >30 yrs ago Tobacco use type: Cigarette e-Cigarette/Vaping Use: Never Used service: No Current occupational status: unemployed Current occupation: rt handed Assessment & Plan Assessment & Plan (1) Diabetes: Code(s): E11.9 - Type 2 diabetes mellitus without complications Plan: Personal Continuous Glucose Monitor: Patients CGM information reviewed Reviewed patient's sensor data: Hypoglycemia: ?0% Hyperglycemia:?35% Time in Range:? 65% Average glucose for the last 1 weeks? 164 mg/dL Patient reports she has been out of sensors for several weeks, I only got shipment did not recall name of DME company Due to patient's insurance she must use DME can not use prescription benefit Patient also has not been using Ceque device to administer insulin. She would like to restart device, however did not bring the battery vent plug inserter with her to today's visit. Instructed patient to scan Walter sensor every 4-6 hours while she is awake Bring Ceque device, with battery vent plug inserter to next visit for training Dr. Mohamud at visit on 09/23/2023 discussed switching patient from Trulicity 1.5 mg to Mounjaro, patient requested prescription be sent to pharmacy Reviewed how to interpret trend arrows Reminded patient that to check finger sticks if symptoms do not match sensor reading. Discussed lag time between finger stick and sensor data.? Patient able to insert sensor independently at home without issue.? Patient Instructions: Follow-up with Diabetes Education nurse in 1 month Coding Level of Care Code Est Pt Level 1 (20063) Diagnoses Diabetes E11.9
== END 2023-09-25 15:23 | disposition home or self-care (01) ==
PROVIDERS: PCP Internal Medicine; Visit Provider Registered Nurse Diabetes Educator
DX: E11.9 Type 2 diabetes mellitus without complications (principal)

== ENCOUNTER → 2023-09-25 14:30 | Outpatient (BNVA) | payer OTHER, SELFPAY | PROVIDERS: PCP Internal Medicine; Visit Provider Registered Nurse Diabetes Educator | DX: E11.9 Type 2 diabetes mellitus without complications (principal) | CPT/HCPCS: 99211 ==

== ENCOUNTER 2023-10-20 08:11 | Outpatient (REF) | payer OTHER, SELFPAY ==
[2023-10-20 08:42] LABS: MANUAL DIFF FLAG NO
[2023-10-20 09:11] LABS: Basophils Percent Auto 0.2 % (0-2); Eosinophils Absolute Auto 0.1 X10*3/uL (0.0-0.4); Eosinophils Percent Auto 1.7 % (0-4); Hematocrit 43.3 % (37.0-47.0); Hemoglobin 14.1 g/dl (12.0-16.0); Imm Gran Abs Auto 0.02 X10*3/uL (0.00-0.03); Imm Gran Pct Auto 0.2 % (0.0-0.4); Lymphocytes Percent Auto 24.3 % (20-40); Mean Corpuscular HGB Conc 32.6 g/dl (31.0-35.0); Mean Corpuscular Volume 86.1 fL (80.0-98.0); Mean Platelet Volume 11.6 fL (9.4-12.3); Monocytes Absolute Auto 0.6 X10*3/uL (0.1-1.2); Monocytes Percent Auto 7.3 % (2-11); Neutrophils Absolute Auto 5.6 x10*3/uL (2.0-8.3); Neutrophils Percent Auto 66.3 % (45-73); Platelet Count 238 X10*3/uL (160-400); Red Blood Count 5.03 X10*6/uL (4.20-5.50); Red Cell Distribution Width 13.2 % (11.0-16.0); White Blood Count 8.4 X10*3/uL (4.8-10.8)
[2023-10-20 09:42] LABS: Creatinine Urine 216.98 mg/dL; Microalbum/Creatinine Ratio Ur 45.1 ug/mg cr (<30)
[2023-10-20 09:46] LABS: Cholesterol 161 mg/dL (<200); HDL Cholesterol 46 mg/dL (>40); LDL Cholesterol Calculated 86 mg/dL (<100); Triglycerides 145 mg/dL (<150)
[2023-10-20 09:50] LABS: Reflex LDLD? No
[2023-10-20 09:56] LABS: HBc Num1 0.12 S/CO (0.00-0.79); HBsAGNum1 0.28 S/CO (0.00-0.99); Hepatitis A Antibody IgM 0.51 Index (0-0.79); Hepatitis B Core Antibody Nonreactive (Nonreactive); Hepatitis B Surface Antigen Negative (Negative); ~Hepatitis A Antibody IgM Nonreactive (Nonreactive); ~Hepatitis B Surface Antibody NONREACTIVE (Nonreactive); ~Hepatitis C Antibody Nonreactive (Nonreactive)
[2023-10-20 09:57] LABS: Syphilis Screen Nonreactive (Nonreactive)
[2023-10-20 10:03] LABS: TSH reflex Free T4 2.68 uIU/mL (0.32-4.0); Vitamin D 25-OH Total 19.8 ng/mL (>30)
== END 2023-10-20 08:12 | disposition home or self-care (01) ==
LOC: HO.LAB 08:11
PROVIDERS: PCP Internal Medicine; Visit Provider Internal Medicine
DX: Z00.00 Encounter for general adult medical examination without abnormal findings (principal); S82.252E Displaced comminuted fracture of shaft of left tibia, subsequent encounter for open fracture type I or II with routine healing; I10 Essential (primary) hypertension; E11.311 Type 2 diabetes mellitus with unspecified diabetic retinopathy with macular edema
CPT/HCPCS: 36415; 80061; 82043; 82306; 82570; 84443; 85025; 86704; 86706; 86709; 86780; 86803; 87340

== ENCOUNTER 2023-10-26 13:50 | Outpatient (AMB) | payer OTHER, SELFPAY ==
--- NOTE | 2023-10-26 14:23 | MHC.AMDMED ---
Intake Intake Visit Reasons: 60 min, Ceque devices training-confirmed X Ray Developer Required: Yes X Ray Developer Language: Machine Wedger Name: Hang [facility] Information Interpreted: non-clinical & clinical Accompanied by: Spouse Allergies seasonal Allergy (Intermediate, Uncoded 06/25/23 12:13) cough HPI Comprehensive Diabetes Asmnt Most Recent Diabetes Results: Microalb/Creat Ratio 45.1 ug/mg cr (<30) H 10/20/23 Cholesterol 161 mg/dL (<200) 10/20/23 HDL Cholesterol 46 mg/dL (>40) 10/20/23 Triglycerides 145 mg/dL (<150) 10/20/23 [facility] Medical History Panic attack Anxiety Obesity due to excess calories Asthma REY (obstructive sleep apnea) Morbid obesity Vitamin D deficiency Obesity Dyslipidemia Hypertension Diabetic polyneuropathy associated with type 2 diabetes mellitus Diabetes type 2, uncontrolled Surgical History History of carpal tunnel release S/P trigger finger release H/O foot surgery History of dilatation and curettage History of sleeve gastrectomy History of esophagogastroduodenoscopy (EGD) History of eyelid surgery Hx of tubal ligation Hx of colonoscopy Family History Father Type II diabetes mellitus Obesity Mother HTN (hypertension) Brother Cancer Social History Household Members: Spouse Housing: Apartment Do you presently have visiting nurse or other home services: Yes Alcohol intake: never Patient Tobacco Use Status: Former Tobacco user Quit Date: >30 yrs ago Tobacco use type: Cigarette e-Cigarette/Vaping Use: Never Used service: No Current occupational status: unemployed Current occupation: rt handed Assessment & Plan Assessment & Plan (1) Diabetes: Code(s): E11.9 - Type 2 diabetes mellitus without complications Plan: Pt at visit Yenifer Simplicity Training Pt brought CeQue patch, surface water technician, vial of mealtime insulin and change by stickers Patient's prescription reads take Humalog 6 units before meals, equal to 3 clicks Instructed patient to wash your hands Demonstrated for patient how to fill syringe from vial, and insert, needle to fill patch Then remove air bubbles from patch, by viewing through clear window below blue cap To prime patch after air bubble has been removed proceed with 4 clicks Apply placed sticker, to patch, count forward 3 days Prepare site where you will place patch with either alcohol or soap and water, avoid waist band and belt line Do not insert through scar tissue, piercings and tattoos be sure to place patch at least 2 in from belly button. If you have excess body hair adhesive will attach better to clean shaven skin Instructed patient to be sure to rotate patch regularly Place patch in surface water technician while holding surface water technician with both hands use thumbs to push down on blue cap in on patch Push until you hear a click Instructed patient not to unlock green button until surface water technician is against prepared site Squeeze at both ends a blue cap and carefully began to pull cap, this should also remove adhesive pad liner. Be cautious of exposed needle, check to make sure needle is not bent Please patch on your body, slide yellow safety and press green button down Press surface water technician firmly for 10 seconds, remove surface water technician by lifting it away To remove needle squeeze clear sides of registered nurse step down at the base Discard needle in sharps container Press down firmly on patch with palm of your hand for 10 seconds Patient left visit with CeQue patch in place Instructed patient on how to administer mealtime insulin, instructed patient that each click is equal to 2 units of mealtime insulin Patient will follow-up with natural resources extension educator as instructed Coding Level of Care Code Est Pt Level 1 (37281) Diagnoses Diabetes E11.9
== END 2023-10-26 14:25 | disposition home or self-care (01) ==
PROVIDERS: PCP Internal Medicine; Visit Provider Registered Nurse Diabetes Educator
DX: E11.9 Type 2 diabetes mellitus without complications (principal)

== ENCOUNTER → 2023-10-26 13:50 | Outpatient (BNVA) | payer OTHER, SELFPAY | PROVIDERS: PCP Internal Medicine; Visit Provider Registered Nurse Diabetes Educator | DX: E11.9 Type 2 diabetes mellitus without complications (principal) | CPT/HCPCS: 99211 ==

== ENCOUNTER 2023-11-26 08:53 | Outpatient (REF) | payer OTHER, SELFPAY ==
--- NOTE | ~2023-11-26 | US_ITS ---
EXAMINATION: US ABDOMEN COMPLETE CLINICAL INFORMATION: Right upper quadrant pain. Right kidney lesion. COMPARISON: CT abdomen and pelvis 04/12/2023. Ultrasound abdomen complete with elastography 01/25/2019. Ultrasound abdomen 10/04/2009. TECHNIQUE: Real-time imaging of the abdominal viscera. Limited visualization due to bowel gas. FINDINGS: PANCREAS: Poorly visualized, possibly enlarged. ABDOMINAL AORTA: Limited visualization. INFERIOR VENA CAVA: Visualized portions are normal. LIVER: Increased hepatic parenchymal heterogeneity and echogenicity could be associated with hepatocellular disease/hepatic steatosis and substantially limits visualization. Correlation with liver function tests and clinical exam recommended to determine further management. GALLBLADDER: Multiple small gallstones/sludge. Borderline gallbladder wall thickness of 3 mm. COMMON BILE DUCT: Normal in caliber measuring 0.4 cm in diameter. RIGHT KIDNEY: No hydronephrosis. Limited visualization. 0.7 x 0.6 x 0.9 cm upper pole echogenic focus may represent a calcification, possibly representing a calcification versus echogenic lesion such as an angiomyolipoma and it was not identified on prior exams. The kidney measures 11.9 cm in maximum dimension. LEFT KIDNEY: No hydronephrosis. No renal calculi. Grape Grower observed irregularity along the lateral margin of the cortex, difficult to characterize due to the limited visualization. The kidney measures 10.5 cm in maximum dimension. SPLEEN: The spleen measures 10.5 cm in maximum dimension. 4.2 x 4.3 x 4.0 cm mildly complex cyst with low-level internal echoes at the upper aspect of the spleen. Ultrasound of 01/25/2019 demonstrated a 1.3 cm simple cyst in the spleen. FREE FLUID: None. US/US abdomen complete IMPRESSION: 1. Increased hepatic parenchymal heterogeneity and echogenicity could be associated with hepatocellular disease/hepatic steatosis and substantially limits visualization. Correlation with liver function tests and clinical exam recommended to determine further management. 2. Multiple small gallstones/sludge. Borderline gallbladder wall thickness of 3 mm. 3. A 0.9 cm upper pole echogenic focus may represent a calcification, possibly representing a calcification versus echogenic lesion such as an angiomyolipoma and it was not identified on prior exams. 4. Grape Grower observed irregularity along the lateral margin of the cortex, difficult to characterize due to the limited visualization. 5. A 4.2 cm mildly complex cyst with low-level internal echoes at the upper aspect of the spleen. Ultrasound of 01/25/2019 demonstrated a 1.3 cm simple cyst in the spleen. 6. Pancreas poorly visualized, possibly enlarged.
--- NOTE | 2023-11-26 10:18 | HM_ITS ---
* Total monitoring time 1 day. * Underlying rhythm is sinus with an average rate of 76/Min. Range 60 to 93/Min. * Frequent supraventricular ectopy with a burden of 14%. Very brief runs. Nothing sustained. * Rare ventricular ectopy. * No significant pauses or AV blocks. * No patient markers or diary events. MTDD
== END 2023-11-26 08:54 | disposition home or self-care (01) ==
LOC: HO.US 08:53
PROVIDERS: PCP Internal Medicine; Visit Provider Internal Medicine Rheumatology
DX: R10.11 Right upper quadrant pain (principal); N28.9 Disorder of kidney and ureter, unspecified; R00.2 Palpitations; I49.49 Other premature depolarization
CPT/HCPCS: 76700; 93225

== ENCOUNTER → 2023-11-26 10:18 | Outpatient (BNV) | payer OTHER, SELFPAY | PROVIDERS: PCP Internal Medicine; Visit Provider Internal Medicine | DX: I49.3 Ventricular premature depolarization (principal) | CPT/HCPCS: 93227 ==

== ENCOUNTER 2023-12-03 13:38 | Outpatient (REF) | payer OTHER, SELFPAY ==
--- NOTE | ~2023-12-03 | MM_ITS ---
EXAMINATION: BONE DENSITOMETRY CLINICAL INDICATION: Osteopenia follow up status post left ankle fracture. COMPARISON: Previous BD dated 11/26/2021 and baseline BD dated 04/08/2011. TECHNIQUE: Using a Patient Communicator DXA System (software version: 13.1) manufactured by [employer], dual-energy x-ray absorptiometry was performed of the lumbar spine and left hip. The images are of good technical quality. Summary results are attached. FINDINGS: LEFT FEMUR, NECK: Current: BMD 0.709 g/cm2, Z-score -1.2, T-score -2.4, osteopenia. Prior: BMD 0.846 g/cm2. Baseline: BMD 0.907 g/cm2. LEFT FEMUR, TOTAL: Current: BMD 0.899 g/cm2, Z-score 0.1, T-score -0.9, normal, 11.7% decrease from previous, 20.0% decrease from baseline (<5% change is not significant). Prior: BMD 1.018 g/cm2. Baseline: BMD 1.124 g/cm2. AP SPINE L1-L4: Current: BMD 1.008 g/cm2, Z-score -0.6, T-score -1.4, osteopenia, 6.8% decrease from previous, 4.5% decrease from baseline (<5% change is not significant). Prior: BMD 1.082 g/cm2. Baseline: BMD 1.056 g/cm2. IDENTIFIED RISK FACTORS: History of fracture (adult), menopause, recurrent falls, secondary osteoporosis (Type 1 diabetes and partial gastrectomy). HISTORY OF FRACTURE: Other. MEDICATIONS: Calcium, vitamin D MM/XR DEXA axial skeleton IMPRESSION: 1. DIAGNOSIS: Osteopenia based on the lowest T-score value of -2.4 in the femoral neck applying World Health Organization criteria. 2. 10-YEAR FRACTURE RISK PREDICTION, FRAX: Major osteoporotic fracture (clinical spine, forearm, hip or shoulder) 11.7%. Hip fracture 2.6%. 3. Treatment Recommendations: NOF guidelines recommend consideration for treatment in postmenopausal women and men age 50 and older presenting with the following: -A hip or vertebral (clinical or morphometric) fracture. -T-score less than or equal to -2.5 at the femoral neck or spine after appropriate evaluation to exclude secondary causes. -Low bone mass at the hip or spine and a 10-year fracture probability by FRAX of greater than or equal to 3% for hip fracture or greater than or equal to 20% for major osteoporotic fracture based on the [place] adapted WHO algorithm. 4. Other Recommendations: All treatment decisions require clinical judgment and consideration of individual patient factors, including patient preferences, comorbidities, previous drug use, risk factors not captured in the FRAX model (e.g. frailty, falls, vitamin D deficiency, increased bone turnover, interval significant decline in bone density) and possible under or overestimation of fracture risk by FRAX. Additional medical evaluation for secondary cause of low bone mineral density may be appropriate. FUTURE SCAN RECOMMENDATION: People with diagnosed cases of osteoporosis or at high risk for fracture should have regular bone mineral density tests. For patients eligible for Medicare, routine testing is allowed once every 2 years. The testing frequency can be increased to one year for patients who have rapidly progressing disease, those who are receiving or discontinuing medical therapy to restore bone mass, or have additional risk factors.
== END 2023-12-03 13:39 | disposition home or self-care (01) ==
LOC: HO.MAMMO 13:38
PROVIDERS: PCP Internal Medicine; Visit Provider Internal Medicine
DX: Z13.820 Encounter for screening for osteoporosis (principal); M85.88 Other specified disorders of bone density and structure, other site; S82.252E Displaced comminuted fracture of shaft of left tibia, subsequent encounter for open fracture type I or II with routine healing; Z78.0 Asymptomatic menopausal state
CPT/HCPCS: 77080

== ENCOUNTER 2024-01-21 12:51 | Outpatient (AMB) | payer OTHER, SELFPAY ==
--- NOTE | 2024-01-21 13:00 | MHC.OFFVIS ---
Vital Signs 01/21/24 13:04 Height 5 ft 2 in Weight 228 lb 2.855 oz BMI 41.7 BP 138/76 Blood Pressure Location Rt brachial Position Sitting Pulse 79 Pulse Source Pulse Oximeter Intake Visit Reasons: f/u Type 2 DM-confirmed Intake Note: Patient presents today to follow up on D2MT. Patient reports hyperglycemia after she eats dinner. Last Diabetic Eye exam: approx 1 month Last Podiatry Visit: No longer is seeing Electronic Warfare Technician, is requesting a new referral. Random Glucose: 484 mg/dl HgA1c: 9.7% Integrated Specialist Required: Yes Integrated Specialist Language: Director Water And Waste Services Name: Shaye, Medical Staff Information Interpreted: non-clinical & clinical Accompanied by: Self / Same As Patient Allergies seasonal Allergy (Intermediate, Uncoded 01/21/24 13:05) cough HPI Comments Details: Patient is 73-year-old female with DM type 2 diagnosed 1993 who presents for management of diabetes. Past medical history:Dm2, HTN, HLD, gastric sleeve 02/15/19 Micro and macrovascular complications: retinopathy, nephropathy, neuropathy, Diabetes medications: Synjardy XR 25/1,000not taking because can't tolerate nausea . Mounjaro 2.5 mg Qwkly Intolerant of regular metformin due to diarrhea Lantus 24 units Humalog 6 units Ac by Cecur device Blood glucose monitoring: In the past 2 weeks, Walter download shows sensors be used 13% of the time. Average glucose is 327 with variability 21.5%. 26% in target with 74% very hyperglycemic and 0% hyperglycemia Symptoms reported: denies numbness, tingling, cramping in lower extremities Hypoglycemia: denies Hyperglycemia: + urinary frequency, + nocturia, denies polydypsia Exercise: has not been walking. Check Scaler - CDE education: Y Electronic Warfare Technician: one year ago Dental exam: long time ago. Ophthalmology evaluation: . Reports anti-VGEF therapy. 10/13/20 10/22/20 01/23/21 09:00 Unknown 11:16 Creatinine Estimated GFR Hemoglobin A1c % 6.7 Triglycerides Cholesterol LDL Cholesterol Direct HDL Cholesterol TSH 2.63 Microalb/Creat Ratio 18.8 02/09/21 02/09/21 07:30 07:30 Creatinine 0.66 Estimated GFR > 60 Hemoglobin A1c % Triglycerides 154 Cholesterol 177 LDL Cholesterol Direct 101 H HDL Cholesterol 52 TSH Microalb/Creat Ratio PFSH Medical History Panic attack Anxiety Obesity due to excess calories Asthma REY (obstructive sleep apnea) Morbid obesity Vitamin D deficiency Obesity Dyslipidemia Hypertension Diabetic polyneuropathy associated with type 2 diabetes mellitus Diabetes type 2, uncontrolled Surgical History History of carpal tunnel release S/P trigger finger release H/O foot surgery History of dilatation and curettage History of sleeve gastrectomy History of esophagogastroduodenoscopy (EGD) History of eyelid surgery Hx of tubal ligation Hx of colonoscopy Family History Father Type II diabetes mellitus Obesity Mother HTN (hypertension) Brother Cancer Social History Household Members: Spouse Housing: Apartment Do you presently have visiting nurse or other home services: Yes Alcohol intake: never Patient Tobacco Use Status: Former Tobacco user Quit Date: >30 yrs ago Tobacco use type: Cigarette e-Cigarette/Vaping Use: Never Used service: No Current occupational status: unemployed Current occupation: rt handed Physical Exam Vital Signs: Last Vital Signs Pulse 79 01/21/24 13:04 BP 138/76 01/21/24 13:04 BMI result Body Mass Index 41.7 Absence of Cushingoid features. Absence of acromegalic features. Neck exam reveals nl size thyroid about 15 gms. No thyroid nodules palpable. No carotid bruits present. Lungs CTA. Heart S1 S2, Reg R/R. No M/R/ G. Skin exam reveals absence of vitiligo or acanthosis nigricans. Abdominal exam reveals Soft NT/ND with NA BS. No organomegaly present. Neck Other: . Extrem Other: Visual exam of foot performed. No ulcerations or open lesions. No onchomycosis, no callouses.Pulses 2 + distally Sensation intact to monofilament exam. Vibratory sensation sensed is Decreased with 128 Hz tuning fork Results AMB Hemoglobin A1c AMB Hemoglobin A1c 9.7 % Last Edit by RAYSHAWN Singh on 01/21/24 13:30 Results Reviewed Results Reviewed: Laboratory Last Values Glucose (Clinic) 484 mg/dL (60-115) H* 01/21/24 13:13 Assessment & Plan Assessment & Plan (1) Diabetes type 2, uncontrolled: Code(s): E11.65 - Type 2 diabetes mellitus with hyperglycemia Category: Medical Qualifiers: Glycemic state: with hyperglycemia Qualified Code(s): E11.65 - Type 2 diabetes mellitus with hyperglycemia Plan: This is 73-year-old female with a history of type 2 diabetes being treated with Trulicity and basal-bolus insulin with poor deteriorated glycemic control and known microvascular complications namely retinopathy, neuropathy and nephropathy. She claims to be intolerant to metformin or metformin /Jardiance combination The plan is to have the patient scan more frequently with the Walter. . Could not make any changes to the regimen because of lack of data. Because of profound hyperglycemia, the patient was sent by ambulance to the emergency room Will have patient follow up with personal development educator Orders: Orders AMB Hemoglobin A1c Today E11.9 - Type 2 diabetes mellitus without complications Coding Level of Care Code Est Pt Level 4 (58815) Diagnoses Uncontrolled type 2 diabetes mellitus with hyperglycemia E11.65 Glycemic state: with hyperglycemia
[2024-01-21 13:04] VITALS: BP 138/76; PULSE 79; BMI 41.7
[2024-01-21 13:26] LABS: Glucose, Whole Blood 484 mg/dL (60-115)
== END 2024-01-21 14:09 | disposition home or self-care (01) ==
PROVIDERS: PCP Internal Medicine; Visit Provider Internal Medicine Endocrinology, Diabetes & Metabolism
DX: E11.9 Type 2 diabetes mellitus without complications (principal); E11.65 Type 2 diabetes mellitus with hyperglycemia
CPT/HCPCS: 99214

== ENCOUNTER → 2024-01-21 12:51 | Outpatient (BNVA) | payer OTHER, SELFPAY | PROVIDERS: PCP Internal Medicine; Visit Provider Internal Medicine Endocrinology, Diabetes & Metabolism ==

== ENCOUNTER 2024-01-21 14:07 | Emergency (ER) | payer OTHER, SELFPAY ==
[2024-01-21 14:20] VITALS: BP 141/68; PULSE 68; RESP 17; TEMP 36.3; O2SAT 96; BMI 42.9
[2024-01-21 14:22] LABS: Glucose, Whole Blood 358 mg/dL (60-115)
[2024-01-21] MEDS: Insulin Lispro 100 UNIT/ML 3 ML VIAL SUBCUT (14:58)
[2024-01-21 15:01] LABS: MANUAL DIFF FLAG NO
--- NOTE | 2024-01-21 15:01 | ED.GENADULT ---
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 She admits to polydipsia and polyuria. She notes she is compliant with her meds but not a diet and eats a lot of bread. No infectious symptoms. She notes her AM blood sugars are high or in 500s. She has no other complaints right now. MD complaint: hyperglycemia Onset (ago): month(s) Radiation: non-radiation Severity: moderate Relieving factors: none Exacerbating factors: eating Associated symptoms: other (polyuria polydipsia) Treatments prior to arrival: none Related Data Home Medications ?Medication ?Instructions ?Recorded ?Confirmed bolus insulin pump, 200 unit 2 12/04/22 12/04/22 unit bolus insulin patch pump, 200 unit, disposable (CeQur Simplicity) calcium carbonate 600 mg-vitamin 1 tab PO Q12H 12/04/22 12/04/22 D3 10 mcg (400 unit) tablet escitalopram oxalate 20 mg tablet 20 mg PO DAILY 12/04/22 12/04/22 meclizine 25 mg tablet 25 mg PO DAILY PRN dizziness 12/04/22 12/04/22 gabapentin 100 mg capsule 0 mg PO 03/19/23 melatonin 5 mg tablet 10 mg PO BEDTIME 03/19/23 Previous Rx's ?Medication ?Instructions ?Recorded polyethylene glycol 3350 17 gram 17 g PO DAILY #30 ea 12/10/22 oral powder packet sennosides 8.6 mg-docusate sodium 1 tab PO BEDTIME #30 tabs 12/10/22 50 mg tablet (Senna Plus) acetaminophen 500 mg tablet 500 mg PO Q6H PRN fever or pain 04/12/23 (Tylenol Extra Strength) #30 tabs blood sugar diagnostic (OneTouch #100 ea 06/10/23 Verio test strips) blood-glucose meter (OneTouch #1 ea 06/10/23 Verio Flex Meter) Lantus Solostar U-100 Insulin 100 24 unit (0.24 mL) subcut DAILY #15 07/21/23 unit/mL (3 mL) subcutaneous pen mL (insulin glargine) insulin lispro 100 unit/mL See Rx Instructions subcut TID #30 09/25/23 subcutaneous solution (Humalog mL U-100 Insulin) tirzepatide 2.5 mg/0.5 mL 2.5 mg (0.5 mL) subcut QWEEK #2 mL 11/04/23 subcutaneous pen injector (Mounjaro) rosuvastatin 40 mg tablet 40 mg PO DAILY #90 tabs 12/14/23 insulin glargine 100 unit/mL (3 34 unit (0.34 mL) subcut DAILY #15 01/21/24 mL) subcutaneous pen (Lantus mL Solostar U-100 Insulin) Allergies Allergy/AdvReac Type Severity Reaction Status Date / Time seasonal Allergy Intermediate cough Uncoded 01/21/24 14:41 Review of Systems Review of Systems: Constitutional : No Fever, No Chills, No Fatigue ENT/Mouth : No sore throat, No Rhinorrhea Eyes: No Eye Pain, No Swelling, No Redness Cardiovascular : No Chest Pain, No SOB, No Dyspnea on Exertion Respiratory : No Cough, No Sputum Gastrointestinal : No Nausea, No Vomiting, No Diarrhea, No abdominal Pain Genitourinary : No Dysuria, No Urinary Frequency, No Hematuria, Musculoskeletal : No joint pain, No Myalgias, No Joint Swelling Skin : No Skin Lesions, No rash Neuro : No Weakness, No Numbness, No Dizziness, no Headache Psych : No Anxiety/Panic, No Depression Heme/Lymph: No Bruising, No Bleeding,No Lymphadenopathy Endocrine : pos Polyuria, pos Polydipsia All other systems reviewed and are negative [facility] Past Medical History Attestation statement: The following information was validated with the patient. Source: old records reviewed Medical History Panic attack Anxiety Obesity due to excess calories Asthma REY (obstructive sleep apnea) Morbid obesity Vitamin D deficiency Obesity Dyslipidemia Hypertension Diabetic polyneuropathy associated with type 2 diabetes mellitus Diabetes type 2, uncontrolled Surgical History History of carpal tunnel release S/P trigger finger release H/O foot surgery History of dilatation and curettage History of sleeve gastrectomy History of esophagogastroduodenoscopy (EGD) History of eyelid surgery Hx of tubal ligation Hx of colonoscopy Family History Family History Father Type II diabetes mellitus Obesity Mother HTN (hypertension) Brother Cancer Social History Social History Household Members: Spouse Housing: Apartment Do you presently have visiting nurse or other home services: Yes Alcohol intake: never Patient Tobacco Use Status: Former Tobacco user Quit Date: >30 yrs ago Tobacco use type: Cigarette e-Cigarette/Vaping Use: Never Used Advance Directives: No Advance Directives Information Provided: Yes service: No Current occupational status: unemployed Current occupation: rt handed Physical Exam ED Vital Signs: Vital Signs - 24 hr 01/21/24 14:20 Temperature 97.4 F Pulse Rate 68 Respiratory Rate 17 Blood Pressure 141/68 H Pulse Oximetry 96 Oxygen Delivery Method Room Air BMI result Body Mass Index 42.9 Appearance: Alert. Oriented X3. No acute distress. Eyes: Pupils equal, round and reactive to light. ENT: Pharynx normal. Neck: Normal inspection. Neck supple. CVS: Normal heart rate and rhythm. Pulses normal. Respiratory: No respiratory distress. Breath sounds normal. Abdomen: Soft and nontender. Skin: Skin warm and dry. Normal skin color. Normal skin turgor. Extremities: No lower extremity edema. No calf ttp Neuro: Oriented X 3. No motor deficit. No sensory deficit. Course Course Course Narrative: hemoglobin A1c increasing now 9.1 from August Reevaluation(s) Reevaluation #1: BS 255 stable for DC Medications Administered Discontinued Medications Generic Name Dose Route Start Last Admin Trade Name Freq PRN Reason Stop Dose Admin Insulin Human Lispro 5 unit 01/21/24 14:25 01/21/24 14:58 Insulin Lispro 100 Unit/Ml 3 Ml Vial SUBCUT 01/21/24 14:26 5 unit ONCE ONE Administration Medical Decision Making Medical Decision Making MDM Narrative: 73 yo female with poorly controlled DM, GERD, arthritis, asthma, obesity, HTN, HLD here with hyperglycemia for a wild in setting of not following her diet. At this time will need basic labs, lispro and she is on 24 units of lantus and given her AM blood sugar is in 500s will up her to 34 units at night. She notes all AM sugars are in 500s. and patient aware. Differential Diagnosis Differential Diagnoses: The differential diagnosis associated with the presentation includes hyperglycemia, non diet compliant Admission/Observation Consideration of admission/observation: Escalation of care including admission/observation considered not in DKA stable for DC BS 255 Lab Data MDM Lab Attestation statement: I reviewed the patient's lab results. 01/21/24 14:57 01/21/24 14:57 Labs: Lab Results 01/21/24 01/21/24 01/21/24 Range/Units 14:18 14:57 15:36 WBC 8.9 (4.8-10.8) X10*3/uL RBC 4.88 (4.20-5.50) X10*6/uL Hgb 13.9 (12.0-16.0) g/dl Hct 40.9 (37.0-47.0) % MCV 83.8 (80.0-98.0) fL MCH 28.5 (27.0-33.0) pg MCHC 34.0 (31.0-35.0) g/dl RDW 13.0 (11.0-16.0) % Plt Count 192 (160-400) X10*3/uL MPV 11.4 (9.4-12.3) fL Immature Gran % (Auto) 0.3 (0.0-0.4) % Neut % (Auto) 70.0 (45-73) % Lymph % (Auto) 20.6 (20-40) % [place] % (Auto) 7.0 (2-11) % Eos % (Auto) 1.8 (0-4) % Baso % (Auto) 0.3 (0-2) % Lymph # (Auto) 1.8 (1.2-4.9) X10*3/uL [place] # (Auto) 0.6 (0.1-1.2) X10*3/uL Eos # (Auto) 0.2 (0.0-0.4) X10*3/uL Baso # (Auto) 0.0 (0.0-0.2) X10*3/uL Abs Immat Gran (auto) 0.03 (0.00-0.03) X10*3/uL Absolute Neuts (auto) 6.2 (2.0-8.3) x10*3/uL Absolute Nucleated RBC 0.000 (0.0-0.012) X10*3/uL Nucleated RBC % (auto) 0.0 (0.0-0.2) /100WBC Sodium 135 (135-145) mmol/L Potassium 4.6 (3.3-5.1) mmol/L Chloride 105 (96-108) mmol/L Carbon Dioxide 23 (22-29) mmol/L Anion Gap 12 (12-20) BUN 16 (9-16) mg/dL Creatinine 0.64 (0.5-1.4) mg/dL Estim Creat Clear Calc 92.4 Estimated GFR > 60 POC Glucose 358 H* 255 H (60-115) mg/dL Random Glucose 327 H (60-115) mg/dL Calcium 9.2 D (8.4-10.2) mg/dL Total Bilirubin 0.2 (0.0-1.0) mg/dL Direct Bilirubin < 0.2 (0.0-0.5) mg/dL AST 19 (5-31) U/L ALT 18 (0-31) U/L Alkaline Phosphatase 79 (39-117) U/L Total Protein 7.0 (6.5-8.0) g/dL Albumin 3.5 (3.5-5.0) g/dL Independent Historian Clinical information obtained from an independent historian. History obtained from or confirmed by: Spouse External Record Review External record reviewed: Outpatient record Prescription Management I considered prescription management with: Other Discharge Plan Discharge Clinical Impression: Acute hyperglycemia Patient Disposition: Home, Self-Care Instructions: Diabetic Hyperglycemia (ED) Additional Instructions: follow up with your tablet making machine operator helper. check blood sugars frequently. return for any worsening symptoms or concerns increase lantus from 24 units to 34 units Prescriptions: New insulin glargine [Lantus Solostar U-100 Insulin] 100 unit/mL (3 mL) insulin pen 34 unit subcut DAILY Qty: 15 0RF No Action (DME) blood-glucose meter [OneTouch Verio Flex meter] Misc See Rx Instructions .Route Qty: 1 0RF Rx Instructions: As directed checks 4 times a day (DME) OneTouch Verio test strips Strip See Rx Instructions .Route Qty: 100 4RF Rx Instructions: As directed test 4 times a day insulin glargine [Lantus Solostar U-100 Insulin] 100 unit/mL (3 mL) insulin pen 24 unit subcut DAILY Qty: 15 5RF insulin lispro [Humalog U-100 Insulin] 100 unit/mL solution See Rx Instructions subcut TID Qty: 30 3RF Rx Instructions: Use up to 35 units today via CeQur device subcutaneously 3 times a day; subcutaneously 3 times a day; Mounjaro 2.5 mg/0.5 mL pen injector 2.5 mg subcut QWEEK Qty: 2 3RF rosuvastatin 40 mg tablet 40 mg PO DAILY Qty: 90 1RF meclizine 25 mg tablet 25 mg PO DAILY PRN (Reason: dizziness) escitalopram oxalate 20 mg tablet 20 mg PO DAILY calcium carbonate-vitamin D3 600 mg-10 mcg (400 unit) tablet 1 tab PO Q12H (DME) CeQur Simplicity 2 unit device MISCELLANEOUS DIRECTED polyethylene glycol 3350 17 gram Powder In Packet 17 g PO DAILY Qty: 30 0RF sennosides-docusate sodium [Senna Plus] 8.6-50 mg Tablet 1 tab PO BEDTIME Qty: 30 0RF acetaminophen [Tylenol Extra Strength] 500 mg tablet 500 mg PO Q6H PRN (Reason: fever or pain) Qty: 30 0RF melatonin 5 mg tablet 10 mg PO BEDTIME gabapentin 100 mg capsule 0 mg PO Print Language: Welsh
[2024-01-21 15:02] LABS: Basophils Percent Auto 0.3 % (0-2); Eosinophils Absolute Auto 0.2 X10*3/uL (0.0-0.4); Eosinophils Percent Auto 1.8 % (0-4); Hematocrit 40.9 % (37.0-47.0); Hemoglobin 13.9 g/dl (12.0-16.0); Imm Gran Abs Auto 0.03 X10*3/uL (0.00-0.03); Imm Gran Pct Auto 0.3 % (0.0-0.4); Lymphocytes Absolute Auto 1.8 X10*3/uL (1.2-4.9); Lymphocytes Percent Auto 20.6 % (20-40); Mean Corpuscular Hemoglobin 28.5 pg (27.0-33.0); Mean Corpuscular Volume 83.8 fL (80.0-98.0); Mean Platelet Volume 11.4 fL (9.4-12.3); Monocytes Absolute Auto 0.6 X10*3/uL (0.1-1.2); Neutrophils Absolute Auto 6.2 x10*3/uL (2.0-8.3); Platelet Count 192 X10*3/uL (160-400); Red Blood Count 4.88 X10*6/uL (4.20-5.50); White Blood Count 8.9 X10*3/uL (4.8-10.8)
--- NOTE | 2024-01-21 15:24 | PC.NURSE ---
pt alert and oriented x3, she denies pain. pt report was at [employer] appointment, her blood sugar was checked and found to be 464. pt was sent to ed for further evaluation, no coverage was given. pt monitors her sugar using the monitor on her L upper outer arm. sugar in er 368. 5 units of subq insulin given as ordered and documented.
[2024-01-21 15:37] LABS: Alanine Aminotransferase 18 U/L (0-31); Albumin Level 3.5 g/dL (3.5-5.0); Alkaline Phosphatase 79 U/L (39-117); Anion Gap 12 (12-20); Aspartate Amino Transferase 19 U/L (5-31); Bilirubin Direct < 0.2 mg/dL (0.0-0.5); Bilirubin Total 0.2 mg/dL (0.0-1.0); Blood Urea Nitrogen 16 mg/dL (9-16); Calcium 9.2 mg/dL (8.4-10.2); Carbon Dioxide 23 mmol/L (22-29); Chloride 105 mmol/L (96-108); Creatinine Clr Calc Pharmacy 92.4; Estimated Glomerular Filt Rate > 60; Glucose Random 327 mg/dL (60-115); Potassium 4.6 mmol/L (3.3-5.1); Sodium 135 mmol/L (135-145)
[2024-01-21 15:41] LABS: Glucose, Whole Blood 255 mg/dL (60-115)
[2024-01-21 16:00] VITALS: BP 140/63; PULSE 70; RESP 16; TEMP 36.3; O2SAT 97
[2024-01-21 16:29] VITALS: BP 140/63; PULSE 70; RESP 16; TEMP 36.3; O2SAT 97
== END 2024-01-21 16:32 | disposition home or self-care (01) ==
PROVIDERS: Emergency Provider Emergency Medicine
DX: E11.65 Type 2 diabetes mellitus with hyperglycemia (principal); R35.89 Other polyuria; R63.1 Polydipsia; I10 Essential (primary) hypertension; E78.5 Hyperlipidemia, unspecified; Z79.4 Long term (current) use of insulin
CPT/HCPCS: 36415; 80048; 80076; 82947; 83036; 85025; 99212; 99283

== ENCOUNTER 2024-01-22 12:51 | Outpatient (AMB) | payer OTHER, SELFPAY ==
--- NOTE | 2024-01-22 13:01 | A.OFFVIS_ITS ---
Intake Visit Reasons: calcification vs angiomyolipoma Intake Note: New Patient presents today for initial visit to establish treatment for : calcification vs angiomyolipoma Urology Medications: none Allergies to Antibiotic: none Blood Thinner: none Stove Refinisher Required: Yes Stove Refinisher Name: NESHA LUNA-ANTONYI Accompanied by: Allergies seasonal Allergy (Intermediate, Uncoded 01/25/24 17:07) cough Medication List - Last Reconciled 01/25/24 by BRII Wood acetaminophen (Tylenol Extra Strength) 500 mg PO Q6H PRN blood sugar diagnostic (OneTouch Verio test strips) As directed test 4 times a day blood-glucose meter (OneTouch Verio Flex Meter) As directed checks 4 times a day bolus insulin pump, 200 unit (CeQur Simplicity) calcium carbonate-vitamin D3 600 mg-10 mcg (400 unit) 1 tab PO Q12H escitalopram oxalate 20 mg PO DAILY gabapentin 0 mg PO insulin glargine (Lantus Solostar U-100 Insulin) 34 units (0.34 mL) subcut DAILY insulin lispro (Humalog U-100 Insulin) Use up to 35 units today via CeQur device subcutaneously 3 times a day; subcutaneously 3 times a day; irbesartan 75 mg PO DAILY Lantus Solostar U-100 Insulin (insulin glargine) 24 units (0.24 mL) subcut DAILY NS meclizine 25 mg PO DAILY PRN melatonin 10 mg PO BEDTIME polyethylene glycol 3350 17 grams PO DAILY rosuvastatin 40 mg PO DAILY sennosides-docusate sodium 8.6-50 mg (Senna Plus) 1 tab PO BEDTIME tirzepatide (Mounjaro) 2.5 mg (0.5 mL) subcut QWEEK HPI Comments Details: Halley is a very pleasant 73-year-old Georgian-speaking female patient of who was accompanied by her significant other at today's office visit. She has a past medical history of hypertension, diabetes, anxiety, asthma, obstructive sleep apnea on CPAP, vitamin-D deficiency, dyslipidemia, and obesity. She presents to the office today as a new patient for question of nephrolithiasis versus angiolipoma. Patient reports having followed up with PCP for ongoing right upper quadrant pain she has been experiencing at which time a abdominal ultrasound was ordered for further assessment evaluation. These results were reviewed with the patient today. Bilateral kidneys with no hydronephrosis. Right kidney with 0.9 cm upper pole echogenic focus may represent a calcification possibly representing a calcification versus echogenic lesion such as an angiolipoma that was not identified on prior exams. Left kidney with no renal calculi. Rigging Man observed irregularity along the lateral margin of the cortex, difficult to characterize due to limited visualization. Discussed obtaining CT renal mass protocol for further assessment evaluation. She does report urinary frequency and urgency however relates this to when her diabetes is not controlled. In office urinalysis results reviewed with the patient today 2+ proteinuria pH 5.5. Discussed and stressed the importance of drinking water daily. She discusses her upcoming appointment with General surgery for cholecystitis. She otherwise denies hematuria, dysuria, foul smelling urine, changes to urinary stream, flank pain, fever, and or chills. She is happy with her current voiding parameters. PFS Medical History Panic attack Anxiety Obesity due to excess calories Asthma REY (obstructive sleep apnea) Morbid obesity Vitamin D deficiency Obesity Dyslipidemia Hypertension Diabetic polyneuropathy associated with type 2 diabetes mellitus Diabetes type 2, uncontrolled Surgical History History of carpal tunnel release S/P trigger finger release H/O foot surgery History of dilatation and curettage History of sleeve gastrectomy History of esophagogastroduodenoscopy (EGD) History of eyelid surgery Hx of tubal ligation Hx of colonoscopy Family History Father Type II diabetes mellitus Obesity Mother HTN (hypertension) Brother Cancer Social History Household Members: Spouse Housing: Apartment Do you presently have visiting nurse or other home services: Yes Alcohol intake: never Patient Tobacco Use Status: Former Tobacco user Quit Date: >30 yrs ago Tobacco use type: Cigarette e-Cigarette/Vaping Use: Never Used service: No Current occupational status: unemployed Current occupation: rt handed Review of Systems Const Reports no additional complaints Eyes Reports no additional complaints ENT Reports no additional complaints Card Reports as per HPI Resp Reports as per HPI GI Reports as per HPI Reports as per HPI Musc Reports no additional complaints Neuro Reports no additional complaints Psych Reports as per HPI Endo Reports as per HPI Luis Miguel/Lymph Reports no additional complaints Aller/Immun Reports no additional complaints Physical Exam Const General: cooperative, healthy appearing, comfortable, no acute distress, well developed, alert and awake Nutritional Appearance: obese Orientation/consciousness: patient oriented x3 Limitations: no limitations HEENT Head: Yes normal to inspection, Yes normocephalic and Yes atraumatic Ears: hearing grossly normal bilaterally Eyes General: appearance normal, both eyes and all related structures Neck Neck: Yes normal visual inspection and Yes trachea midline Chest Chest palpation & inspection: normal inspection of the chest Resp Effort & Inspection: normal respiratory effort and able to speak in complete sentences Cardio Rate: regular rate GI Inspection: Yes normal to inspection General: Yes no CVA tenderness Back/Spine/Pelvis Back: no CVA tenderness Skin General skin exam: no rashes or lesions noted Neuro General: patient oriented x3 Extrem General: Yes normal to inspection Psych Appearance: grossly normal and well kempt Mental Status: mental status grossly normal Speech and movement: Normal speech and movement present and Clear speech present Affect: normal affect Attitude: cooperative Thought process: Normal thought process present Thought content: Normal thought content present Insight: Fair insight present (Psych) Judgement: Fair judgement present (Psych) Results AMB Urinalysis, Automated UA Leukoctes 15 Valentin/uL Last Edit by ubitus Moody on 01/22/24 13:22 UA Nitrite Negative Last Edit by [email or web address] on 01/22/24 13:22 UA Urobilinogen 0.2 mg/dL Last Edit by ubitus [email or web address] on 01/22/24 13:22 UA Protein 100 mg/dL Last Edit by [employer] on 01/22/24 13:22 UA pH 5.5 Last Edit by [employer] on 01/22/24 13:22 UA Blood 0 Fish/uL Last Edit by [employer] on 01/22/24 13:22 UA Specific [place] 1.030 Last Edit by [employer] on 01/22/24 13:22 UA Ketone Positive Last Edit by [employer] on 01/22/24 13:22 UA Bilirubin 2 mg/dL Last Edit by ubitus BrigidaUroSens on 01/22/24 13:22 UA Glucose 0 mg/dL Last Edit by Sebastian [email or web address] on 01/22/24 13:22 Results Reviewed Results Reviewed: Laboratory Last Values Urine pH (Auto) 5.5 01/22/24 13:16 Specific [place] (Auto) 1.030 01/22/24 13:16 Urine Protein (Auto) 100 mg/dL 01/22/24 13:16 Glucose (UA)(Auto) 0 mg/dL 01/22/24 13:16 Urine Ketones (Auto) Positive 01/22/24 13:16 Urine Blood (Auto) 0 Fish/uL 01/22/24 13:16 Urine Nitrite (Auto) Negative 01/22/24 13:16 Urine Bilirubin (Auto) 2 mg/dL 01/22/24 13:16 Urine Urobilinogen (Auto) 0.2 mg/dL 01/22/24 13:16 Leukocyte Esterase (Auto) 15 Valentin/uL 01/22/24 13:16 Date of Service: 11/26/23 EXAMINATION: US ABDOMEN COMPLETE FINDINGS: PANCREAS: Poorly visualized, possibly enlarged. ABDOMINAL AORTA: Limited visualization. INFERIOR VENA CAVA: Visualized portions are normal. LIVER: Increased hepatic parenchymal heterogeneity and echogenicity could be associated with hepatocellular disease/hepatic steatosis and substantially limits visualization. Correlation with liver function tests and clinical exam recommended to determine further management. GALLBLADDER: Multiple small gallstones/sludge. Borderline gallbladder wall thickness of 3 mm. COMMON BILE DUCT: Normal in caliber measuring 0.4 cm in diameter. RIGHT KIDNEY: No hydronephrosis. Limited visualization. 0.7 x 0.6 x 0.9 cm upper pole echogenic focus may represent a calcification, possibly representing a calcification versus echogenic lesion such as an angiomyolipoma and it was not identified on prior exams. The kidney measures 11.9 cm in maximum dimension. LEFT KIDNEY: No hydronephrosis. No renal calculi. Rigging Man observed irregularity along the lateral margin of the cortex, difficult to characterize due to the limited visualization. The kidney measures 10.5 cm in maximum dimension. SPLEEN: The spleen measures 10.5 cm in maximum dimension. 4.2 x 4.3 x 4.0 cm mildly complex cyst with low-level internal echoes at the upper aspect of the spleen. Ultrasound of 01/25/2019 demonstrated a 1.3 cm simple cyst in the spleen. FREE FLUID: None. IMPRESSION: 1. Increased hepatic parenchymal heterogeneity and echogenicity could be associated with hepatocellular disease/hepatic steatosis and substantially limits visualization. Correlation with liver function tests and clinical exam recommended to determine further management. 2. Multiple small gallstones/sludge. Borderline gallbladder wall thickness of 3 mm. 3. A 0.9 cm upper pole echogenic focus may represent a calcification, possibly representing a calcification versus echogenic lesion such as an angiomyolipoma and it was not identified on prior exams. 4. Rigging Man observed irregularity along the lateral margin of the cortex, difficult to characterize due to the limited visualization. 5. A 4.2 cm mildly complex cyst with low-level internal echoes at the upper aspect of the spleen. Ultrasound of 01/25/2019 demonstrated a 1.3 cm simple cyst in the spleen. 6. Pancreas poorly visualized, possibly enlarged. Assessment & Plan Assessment & Plan (1) Angiolipoma: Code(s): D17.9 - Benign lipomatous neoplasm, unspecified Category: Medical (2) Proteinuria: Code(s): R80.9 - Proteinuria, unspecified Category: Medical Plan In office urinalysis results reviewed with the patient today; as noted above; proteinuria noted. Will refer to Nephrology for further assessment evaluation. Will obtain CT renal mass protocol for further assessment evaluation. BUN and creatinine ordered for imaging. Discussed at length potential causes of angiolipoma verses nephrolithiasis. Patient currently denies any bothersome urinary issues or concerns. Discussed, educated, and stressed the importance of managing diabetes for overall health and well-being. Patient reports be happy with current voiding parameters. Follow-up in 1-3 months with imaging and labs to be completed prior; or sooner with any issues, concerns, and or questions. Orders: Orders AMB Urinalysis Automated 01/22/24 Z13.9 - Encounter for screening, unspecified Blood Urea Nitrogen 01/22/24 D17.9 - Benign lipomatous neoplasm, unspecified, R80.9 - Proteinuria, unspecified Creatinine 01/22/24 D17.9 - Benign lipomatous neoplasm, unspecified, R80.9 - Proteinuria, unspecified CT abdomen pelvis wo/w IV con 01/22/24 D17.9 - Benign lipomatous neoplasm, unspecified Referrals Nephrology Referral R80.9 - Proteinuria, unspecified Patient Instructions: The patient had an opportunity to ask questions regarding the treatment plan. All questions were answered. Physical exam, labs, and imaging were discussed and reviewed in detail. As well as risks, benefits, and discussion of treatment choices. No major barriers to understanding were identified. The patient expressed understanding and agreement with the above treatment plan. The patient was made aware they should contact our office by phone for worsening of their current condition, the appearance of new symptoms, or with any questions or concerns. Compliance is encouraged with any medications and follow up testing that is ordered. It is a privilege to be allowed the opportunity to participate in? your urological care.? Again, if you have any questions or concerns If you have any questions or concerns please do not hesitate to contact me. The office is [phone]. This note is constructed using voice recognition software. While every effort has been made to ensure accuracy cargo worker errors may have been included. Yours sincerely, BRII Wood Coding Level of Care Code New Pt Level 3 (20988) Diagnoses Angiolipoma D17.9 Proteinuria R80.9
== END 2024-01-22 13:38 | disposition home or self-care (01) ==
PROVIDERS: PCP Internal Medicine; Visit Provider Nurse Practitioner Family
DX: D17.9 Benign lipomatous neoplasm, unspecified (principal); R80.9 Proteinuria, unspecified
CPT/HCPCS: 99203

== ENCOUNTER → 2024-01-22 12:51 | Outpatient (BNVA) | payer OTHER, SELFPAY | PROVIDERS: PCP Internal Medicine; Visit Provider Nurse Practitioner Family | DX: D17.9 Benign lipomatous neoplasm, unspecified (principal); R80.9 Proteinuria, unspecified | CPT/HCPCS: 81003; 99202 ==

== ENCOUNTER 2024-01-26 13:46 | Outpatient (AMB) | payer OTHER, SELFPAY ==
--- NOTE | 2024-01-26 13:49 | MHC.OFFVIS ---
Vital Signs 01/26/24 13:57 Height 5 ft 2 in Weight 233 lb BMI 42.6 BP 142/88 H Blood Pressure Location Rt brachial Position Sitting Pulse 86 Intake Visit Reasons: calculus gallbladder w/o cholecystitis Intake Note: Patient referred by PCP Dr. Bran for calculus of gallbladder. Patient c/o: LLQ pain. ABD US: 11-26-23. Speech Pathology Assistant Required: Yes Accompanied by: Todd Ramon, Allergies seasonal Allergy (Intermediate, Uncoded 01/26/24 13:55) cough HPI Comments Details: Patient presents with nonspecific left lower quadrant epigastric abdominal complaints. She had a workup including sonogram demonstrated cholelithiasis. Patient was status post gastric sleeve in the past. Patient has annual colonoscopies and had 1 within the last few years which was only noteworthy for a polyp. She has otherwise tolerating a diet. Having regular bowel habits. Never been jaundiced before. She is unsure if she has fatty food intolerance. Or upper abdominal pain is epigastric/right upper quadrant. She also has combined with this occasional left lower quadrant abdominal cramping. Chart was reviewed and patient evaluated. Multiple comorbidities. [facility]LY [facility], LATER [facility] Medical History Panic attack Anxiety Obesity due to excess calories Asthma REY (obstructive sleep apnea) Morbid obesity Vitamin D deficiency Obesity Dyslipidemia Hypertension Diabetic polyneuropathy associated with type 2 diabetes mellitus Diabetes type 2, uncontrolled Surgical History History of carpal tunnel release S/P trigger finger release H/O foot surgery History of dilatation and curettage History of sleeve gastrectomy History of esophagogastroduodenoscopy (EGD) History of eyelid surgery Hx of tubal ligation Hx of colonoscopy Family History Father Type II diabetes mellitus Obesity Mother HTN (hypertension) Brother Cancer Social History Household Members: Spouse Housing: Apartment Do you presently have visiting nurse or other home services: Yes Alcohol intake: never Patient Tobacco Use Status: Former Tobacco user Quit Date: >30 yrs ago Tobacco use type: Cigarette e-Cigarette/Vaping Use: Never Used service: No Current occupational status: unemployed Current occupation: rt handed Physical Exam Vital Signs: Last Vital Signs Pulse 86 01/26/24 13:57 BP 142/88 H 01/26/24 13:57 BMI result Body Mass Index 42.6 GI Other: Very corpulent abdomen. No evidence of any guarding, rebound, or rigidity. Assessment & Plan Assessment & Plan (1) Cholelithiasis: Code(s): K80.20 - Calculus of gallbladder without cholecystitis without obstruction Category: Surgical Plan At present, I am not convinced that the patient has biliary symptoms per se. Current plan is to observe the patient. She will see me in a few weeks' time for follow-up. Should her symptoms progressively worsened during this interim, she has been instructed to call the office. All questions answered. Patient will see me as directed or p.r.n.. Coding Level of Care Code New Pt Level 4 (52979) Diagnoses Cholelithiasis K80.20
[2024-01-26 13:57] VITALS: BP 142/88; PULSE 86; BMI 42.6
== END 2024-01-26 14:08 | disposition home or self-care (01) ==
PROVIDERS: PCP Internal Medicine; Referring Provider Internal Medicine; Visit Provider Surgery
DX: K80.20 Calculus of gallbladder without cholecystitis without obstruction (principal)
CPT/HCPCS: 99203

== ENCOUNTER → 2024-01-26 13:46 | Outpatient (BNVA) | payer OTHER, SELFPAY | PROVIDERS: PCP Internal Medicine; Referring Provider Internal Medicine; Visit Provider Surgery | DX: K80.20 Calculus of gallbladder without cholecystitis without obstruction (principal) | CPT/HCPCS: 99202 ==

== ENCOUNTER 2024-01-28 11:50 | Outpatient (REF) | payer OTHER, SELFPAY ==
--- NOTE | ~2024-01-28 | XR_ITS ---
EXAMINATION: XR knee LT 3V, XR tibia fibula LT 2V CLINICAL INFORMATION: Reason for Exam M25.562 - Pain in left knee COMPARISON: Tibia fibular radiographs 09/24/2023 TECHNIQUE: Two views of the tibia and fibula and 3 views of the left kidney and one view of the contralateral right knee standing FINDINGS: Redemonstration of the lateral plate and screw fixation of the tibia. No evidence of hardware fracture or complication. Chronic healed mid tibial diaphyseal and distal fibular fractures again seen. Mild osteoarthritis of the knee similar to prior. Disuse osteopenia. No soft tissue abnormality. XR/XR knee LT 3V IMPRESSION: 1. Redemonstration of the lateral plate and screw fixation of the tibia. No evidence of hardware fracture or complication. 2. Chronic healed mid tibial diaphyseal and distal fibular fractures again seen. 3. Disuse osteopenia.
--- NOTE | ~2024-01-28 | XR_ITS ---
EXAMINATION: XR knee LT 3V, XR tibia fibula LT 2V CLINICAL INFORMATION: Reason for Exam M25.562 - Pain in left knee COMPARISON: Tibia fibular radiographs 09/24/2023 TECHNIQUE: Two views of the tibia and fibula and 3 views of the left kidney and one view of the contralateral right knee standing FINDINGS: Redemonstration of the lateral plate and screw fixation of the tibia. No evidence of hardware fracture or complication. Chronic healed mid tibial diaphyseal and distal fibular fractures again seen. Mild osteoarthritis of the knee similar to prior. Disuse osteopenia. No soft tissue abnormality. XR/XR tibia fibula LT 2V IMPRESSION: 1. Redemonstration of the lateral plate and screw fixation of the tibia. No evidence of hardware fracture or complication. 2. Chronic healed mid tibial diaphyseal and distal fibular fractures again seen. 3. Disuse osteopenia.
== END 2024-01-28 11:51 | disposition home or self-care (01) ==
LOC: HO.HOSX 11:50
PROVIDERS: Visit Provider Orthopaedic Surgery
DX: S82.142D Displaced bicondylar fracture of left tibia, subsequent encounter for closed fracture with routine healing (principal); M17.32 Unilateral post-traumatic osteoarthritis, left knee; T14.90XS Injury, unspecified, sequela
CPT/HCPCS: 73562; 73590; 99212

== ENCOUNTER 2024-01-28 14:26 | Outpatient (AMB) | payer OTHER, SELFPAY ==
--- NOTE | 2024-01-28 14:29 | MHC.OFFVIS ---
Intake Visit Reasons: OV-ORIF left tibia 12/08/22 s/p Intake Note: Halley is a 73 year old female who presents today for a follow up of her left tibia, s/p Left Tibia ORIF 12/08/22. Presents today to sara BETH. Allergies seasonal Allergy (Intermediate, Uncoded 01/26/24 13:55) cough HPI HPI OV-ORIF left tibia 12/08/22 s/p: Details: Halley is a 73 year old female who presents today for a follow up of her left tibia, s/p Left Tibia ORIF 12/08/22. Presents today to sara BETH. She feels well however. She has no complaints and she is walking comfortably. [facility], LAT[facility] Medical History Panic attack Anxiety Obesity due to excess calories Asthma REY (obstructive sleep apnea) Morbid obesity Vitamin D deficiency Obesity Dyslipidemia Hypertension Diabetic polyneuropathy associated with type 2 diabetes mellitus Diabetes type 2, uncontrolled Surgical History History of carpal tunnel release S/P trigger finger release H/O foot surgery History of dilatation and curettage History of sleeve gastrectomy History of esophagogastroduodenoscopy (EGD) History of eyelid surgery Hx of tubal ligation Hx of colonoscopy Family History Father Type II diabetes mellitus Obesity Mother HTN (hypertension) Brother Cancer Social History Household Members: Spouse Housing: Apartment Do you presently have visiting nurse or other home services: Yes Alcohol intake: never Patient Tobacco Use Status: Former Tobacco user Tobacco use type: Cigarette e-Cigarette/Vaping Use: Never Used service: No Current occupational status: unemployed Current occupation: rt handed Physical Exam Extrem Other: Left knee with no effusion and no tenderness to palpation. Mild valgus malalignment. Well-healed incision. Results Reviewed Results Reviewed: Radiographs were reviewed and reveal a healed tibial shaft and plateau fracture with depression in the central portion of the lateral plateau. No hardware complications. Assessment & Plan Assessment & Plan (1) Fracture of left tibial plateau: Comment: left tibial plateau ORIF 12/08/2022 NE Code(s): S82.142A - Displaced bicondylar fracture of left tibia, initial encounter for closed fracture Category: Medical Plan: Patient has recovered nicely and there is no need for further intervention at this point. She does have some posttraumatic changes that may be problematic in the future but at this time she feels good. (2) Post-traumatic osteoarthritis of left knee: Code(s): M17.32 - Unilateral post-traumatic osteoarthritis, left knee Category: Medical Plan: Posttraumatic OA may be an issue in the future. We discussed this. Should her pain persist step 1 would be removal of hardware. Orders: Orders XR tibia fibula LT 2V 01/28/24 S82.A - Unspecified fracture of shaft of left tibia, initial encounter for closed fracture XR knee LT 3V 01/28/24 M25.562 - Pain in left knee Coding Level of Care Code Est Pt Level 4 (60332) Diagnoses Fracture of left tibial plateau S82.142A Post-traumatic osteoarthritis of left knee M17.32
== END 2024-01-28 16:00 ==
PROVIDERS: PCP Internal Medicine; Visit Provider Orthopaedic Surgery
DX: S82.142D Displaced bicondylar fracture of left tibia, subsequent encounter for closed fracture with routine healing (principal); M17.32 Unilateral post-traumatic osteoarthritis, left knee
CPT/HCPCS: 99214

== ENCOUNTER 2024-02-12 14:20 | Outpatient (AMB) | payer OTHER, SELFPAY ==
[2024-02-12 14:30] VITALS: BP 124/60; PULSE 64; O2SAT 94; BMI 42.7
--- NOTE | 2024-02-12 14:30 | HO.NEPHOV_ITS ---
Vital Signs 02/12/24 14:30 Height 5 ft 2 in Weight 233 lb 8 oz BMI 42.7 BP 124/60 Blood Pressure Location Rt brachial Position Sitting Pulse 64 Pulse Source Pulse Oximeter Pulse Oximetry (%) 94 Oxygen Delivery Method Room Air Intake Visit Reasons: Proteinuria/ Conf Road Traffic Controller Required: Yes Road Traffic Controller Language: Internal Medicine Physician Assistant Name: Davon [id number] Accompanied by: Spouse Allergies seasonal Allergy (Intermediate, Uncoded 03/29/24 13:11) cough HPI Comments Details: I had the pleasure of seeing Halley in consultation for hypertension on a backdrop of history of proteinuria. She has diabetes mellitus. She is unsure about her last hemoglobin A1c. She denies retinopathy. She is taking angiotensin receptor max. She avoids excessive nonsteroidal anti- inflammatories. Her renal functions are normal. She does not have any chest pain, shortness of breath, paroxysmal nocturnal dyspnea, orthopnea, pedal edema, orthostatic symptoms, epistaxis, photosensitivity, skin rashes, orthostatic symptoms, sensorineural deafness, microscopic hematuria, new bone or back pain. She claims to be compliant with her medications and is closely followed up by her PCP. There were no new active complaints at the time of this office visit. [facility] Medical History (Updated 04/13/24 @ 22:11 by Harvey Olivares MD) Panic attack Anxiety Obesity due to excess calories Asthma REY (obstructive sleep apnea) Morbid obesity Vitamin D deficiency Obesity Dyslipidemia Hypertension Diabetic polyneuropathy associated with type 2 diabetes mellitus Diabetes type 2, uncontrolled Surgical History (Updated 03/29/24 @ 13:15 by Zaire Lewis MD) Abdominal pain History of carpal tunnel release S/P trigger finger release H/O foot surgery History of dilatation and curettage History of sleeve gastrectomy History of esophagogastroduodenoscopy (EGD) History of eyelid surgery Hx of tubal ligation Hx of colonoscopy Family History Father Type II diabetes mellitus Obesity Mother HTN (hypertension) Brother Cancer Social History Household Members: Spouse Housing: Apartment Do you presently have visiting nurse or other home services: Yes Alcohol intake: never Patient Tobacco Use Status: Former Tobacco user Tobacco use type: Cigarette e-Cigarette/Vaping Use: Never Used service: No Current occupational status: unemployed Current occupation: rt handed Review of Systems Const All systems reviewed & are unremarkable except as noted in HPI and below Physical Exam Vital Signs: Last Vital Signs Pulse 64 02/12/24 14:30 BP 124/60 02/12/24 14:30 Pulse Ox 94 02/12/24 14:30 Oxygen Delivery Method Room Air 02/12/24 14:30 BMI result Body Mass Index 42.7 Const General: comfortable and no acute distress Orientation/consciousness: patient oriented x3 HEENT Head: Yes normocephalic Mouth: Normal oral and palatal mucosa present Eyes EOM: EOMs intact bilaterally Neck Neck: Yes supple Resp Auscultation: clear to auscultation bilaterally Cardio Jugular venous distension: no JVD Rate: regular rate GI Palpation (GI): Soft to palpation Auscultation: normal bowel sounds General: Yes no CVA tenderness Back/Spine/Pelvis Back: no CVA tenderness Skin General skin exam: no rashes or lesions noted Neuro General: patient oriented x3 and moves all extremities Extrem General: Yes no pedal edema Results Reviewed Nephrology Results: Hgb 13.9 g/dl (12.0-16.0) 01/21/24 WBC 8.9 X10*3/uL (4.8-10.8) 01/21/24 Plt Count 192 X10*3/uL (160-400) 01/21/24 Sodium 139 mmol/L (135-145) 03/22/24 Potassium 4.6 mmol/L (3.3-5.1) 03/22/24 Chloride 105 mmol/L (96-108) 03/22/24 Carbon Dioxide 26 mmol/L (22-29) 03/22/24 BUN 17 mg/dL (9-16) H 03/24/24 Creatinine 0.75 mg/dL (0.5-1.4) 03/24/24 Calcium 9.4 mg/dL (8.4-10.2) 03/22/24 Urine Creatinine 230.20 mg/dL 03/22/24 Protein/Creatinin Ratio 0.17 (<0.2) 03/22/24 Assessment & Plan Assessment & Plan (1) Hypertension: Code(s): I10 - Essential (primary) hypertension Category: Medical Qualifiers: Hypertension type: essential hypertension Qualified Code(s): I10 - Essential (primary) hypertension (2) Diabetic nephropathy: Code(s): E11.21 - Type 2 diabetes mellitus with diabetic nephropathy Category: Medical Qualifiers: Diabetes mellitus type: type 2 Qualified Code(s): E11.21 - Type 2 diabetes mellitus with diabetic nephropathy (3) Angiomyolipoma of kidney: Code(s): D17.71 - Benign lipomatous neoplasm of kidney Category: Medical Plan She has 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 I increased her Avapro to 150 mg daily which should help her with hypertension, proteinuria and provide her renal protection being a diabetic. Her renal functions are normal. His serum potassium is at baseline. She has angiomyolipoma of the kidney for which I plan to do a surveillance ultrasound with time and will refer to intervention Radiology based on evolving data for embolization. Her blood pressure needs to be kept at goal. She is on statins. Given she is type 2 diabetic, she is a great candidate for SGLT2 inhibitor. She should avoid nonsteroidal anti- inflammatories and maintain good hydration along with keeping her blood sugar at goal. Time spent retrieving all the data, patient encounter and documentation included 59 minutes. All these have been discussed in detail. Answered all questions. Follow-up appointment given. Orders: Orders Creatinine 02/12/24 E11.21 - Type 2 diabetes mellitus with diabetic nephropathy, I10 - Essential (primary) hypertension Calcium 02/12/24 E11.21 - Type 2 diabetes mellitus with diabetic nephropathy, I10 - Essential (primary) hypertension Blood Urea Nitrogen 02/12/24 E11.21 - Type 2 diabetes mellitus with diabetic nephropathy, I10 - Essential (primary) hypertension Electrolytes 02/12/24 E11.21 - Type 2 diabetes mellitus with diabetic nephropathy, I10 - Essential (primary) hypertension Protein Creatinine Ratio, Ur 02/12/24 E11.21 - Type 2 diabetes mellitus with diabetic nephropathy, I10 - Essential (primary) hypertension Coding Level of Care Code New Pt Level 5 (02175) Diagnoses Essential hypertension I10 Hypertension type: essential hypertension Diabetic nephropathy associated with type 2 diabetes mellitus E11.21 Diabetes mellitus type: type 2 Angiomyolipoma of kidney D17.71
== END 2024-02-12 15:14 | disposition home or self-care (01) ==
PROVIDERS: PCP Internal Medicine; Referring Provider Nurse Practitioner Family; Visit Provider Internal Medicine Nephrology
DX: I10 Essential (primary) hypertension (principal); E11.21 Type 2 diabetes mellitus with diabetic nephropathy; D17.71 Benign lipomatous neoplasm of kidney
CPT/HCPCS: 99205

== ENCOUNTER → 2024-02-12 14:20 | Outpatient (BNVA) | payer OTHER, SELFPAY | PROVIDERS: PCP Internal Medicine; Referring Provider Nurse Practitioner Family; Visit Provider Internal Medicine Nephrology | DX: E11.42 Type 2 diabetes mellitus with diabetic polyneuropathy (principal); E11.65 Type 2 diabetes mellitus with hyperglycemia; I12.9 Hypertensive chronic kidney disease with stage 1 through stage 4 chronic kidney disease, or unspecified chronic kidney disease; D17.71 Benign lipomatous neoplasm of kidney | CPT/HCPCS: 99202 ==

== ENCOUNTER 2024-03-22 12:01 | Outpatient (REF) | payer OTHER, SELFPAY ==
[2024-03-22 13:57] LABS: Protein/Creatinine Ratio, Ur 0.17 (<0.2); Total Protein Urine Random 39 mg/dL (<12)
[2024-03-22 14:02] LABS: Anion Gap 13 (12-20); Blood Urea Nitrogen 15 mg/dL (9-16); Calcium 9.4 mg/dL (8.4-10.2); Carbon Dioxide 26 mmol/L (22-29); Chloride 105 mmol/L (96-108); Estimated Glomerular Filt Rate > 60; Potassium 4.6 mmol/L (3.3-5.1); Sodium 139 mmol/L (135-145)
== END 2024-03-22 12:02 | disposition home or self-care (01) ==
LOC: HO.LAB 12:01
PROVIDERS: PCP Internal Medicine; Visit Provider Internal Medicine Nephrology
DX: E11.21 Type 2 diabetes mellitus with diabetic nephropathy (principal); I10 Essential (primary) hypertension
CPT/HCPCS: 36415; 80051; 82310; 82565; 82570; 84156; 84520

== ENCOUNTER 2024-03-24 14:17 | Outpatient (REF) | payer OTHER, SELFPAY ==
[2024-03-24 14:56] LABS: Blood Urea Nitrogen 17 mg/dL (9-16); Estimated Glomerular Filt Rate > 60
== END 2024-03-24 14:18 | disposition home or self-care (01) ==
LOC: HO.LAB 14:17
PROVIDERS: PCP Internal Medicine; Visit Provider Nurse Practitioner Family
DX: D17.9 Benign lipomatous neoplasm, unspecified (principal); R80.9 Proteinuria, unspecified
CPT/HCPCS: 36415; 82565; 84520

== ENCOUNTER 2024-03-29 10:35 | Outpatient (REF) | payer OTHER, SELFPAY ==
--- NOTE | ~2024-03-29 | CT_ITS ---
EXAMINATION: CT ABDOMEN AND PELVIS WITHOUT AND WITH CONTRAST CLINICAL INFORMATION: Benign lipomatous neoplasm of the kidney. COMPARISON: Ultrasound abdomen 11/26/2023, CT abdomen and pelvis 04/12/2023. TECHNIQUE: Multidetector volumetric imaging was performed of the abdomen and pelvis before and after the IV administration of 85 mL of Omnipaque 300 intravenous contrast. Sagittal and coronal reformatted images were obtained on the technologist's workstation. This CT examination was performed using dose optimization techniques as appropriate, variously including the following: *Automated exposure control. *Adjustment of mA and/or kV according to patient size (this includes techniques or standardized protocols for targeted exams where dose is matched to indication/reason for exam; i.e. extremities or head). *Use of iterative reconstruction technique. DLP: 1098 mGy-cm FINDINGS: LUNG BASES: The visualized lung bases are unremarkable. LIVER, GALLBLADDER, AND BILIARY TREE: The liver is normal in size, shape, and attenuation. No focal hepatic lesion or biliary ductal dilatation is present. The gallbladder is unremarkable with no evidence of radiopaque gallstones, gallbladder wall thickening, or obvious pericholecystic inflammatory changes. PANCREAS: There is some fatty infiltration in the head of the pancreas. No pancreatic masses, calcifications or ductal dilatation is seen. SPLEEN: 5 cm splenic cyst is again seen. ADRENAL GLANDS: There is a 1.2 cm fat density mass in the lateral limb of the left adrenal gland consistent with a myelolipoma, unchanged from prior. KIDNEYS AND URETERS: The kidneys are normal in size, shape, and attenuation. No hydronephrosis, hydroureter, or calculi seen. No perinephric stranding. BLADDER: Unremarkable. GASTROINTESTINAL TRACT: Status post gastric sleeve. The small and large bowel are unremarkable. The appendix is unremarkable. ABDOMINAL WALL: No significant hernia is appreciated. LYMPH NODES: No retroperitoneal lymphadenopathy. VASCULAR: Unremarkable. PELVIC VISCERA: The uterus and adnexa are unremarkable. OSSEOUS STRUCTURES: Degenerative changes are seen most prominent at L1-L2 and L2-L3. CT/CT abdomen pelvis wo/w IV con IMPRESSION: 1. No significant abnormality is seen. 2. No renal mass is identified. 3. Incidental note made of stable benign splenic cyst, benign left adrenal myelolipoma and degenerative changes in the spine. Fleischner guidelines were followed. Electronically signed by: Patrice Jones MD 05/05/2024 11:02 PM EDT RP
[2024-03-29] MEDS: iohexoL 350 MG/ML 75 ML INFUS..BTL 85 ML IV (11:47)
== END 2024-03-29 10:36 | disposition home or self-care (01) ==
LOC: HO.CT 10:35
PROVIDERS: PCP Internal Medicine; Visit Provider Nurse Practitioner Family
DX: D17.9 Benign lipomatous neoplasm, unspecified (principal); R10.32 Left lower quadrant pain
CPT/HCPCS: 74178; 99212; Q9967

== ENCOUNTER 2024-03-29 13:05 | Outpatient (AMB) | payer OTHER, SELFPAY ==
--- NOTE | 2024-03-29 13:10 | A.OFFVIS_ITS ---
Vital Signs 03/29/24 13:12 Height 5 ft 2 in Weight 231 lb 7.766 oz BMI 42.3 Pulse 62 Intake Visit Reasons: s/p calculus gallbladder w/o cholecystitis Intake Note: This patient presents for an assessment for cholelithiasis. Pt c/o; per pt has not had any symptoms or changes, feeling well 11/26/23: Abd US Bullet Swaging Machine Adjuster Required: No Accompanied by: Spouse Allergies seasonal Allergy (Intermediate, Uncoded 03/29/24 13:11) cough HPI Comments Details: Patient was here with her significant other for follow-up regarding prior episode of upper abdominal pain. She has had no recurrence. She is tolerating a diet. Having regular bowel habits. She has no abdominal issues or complaints. [facility] Medical History Panic attack Anxiety Obesity due to excess calories Asthma REY (obstructive sleep apnea) Morbid obesity Vitamin D deficiency Obesity Dyslipidemia Hypertension Diabetic polyneuropathy associated with type 2 diabetes mellitus Diabetes type 2, uncontrolled Surgical History (Updated 03/29/24 @ 13:15 by Zaire Lewis MD) Abdominal pain History of carpal tunnel release S/P trigger finger release H/O foot surgery History of dilatation and curettage History of sleeve gastrectomy History of esophagogastroduodenoscopy (EGD) History of eyelid surgery Hx of tubal ligation Hx of colonoscopy Family History Father Type II diabetes mellitus Obesity Mother HTN (hypertension) Brother Cancer Social History Household Members: Spouse Housing: Apartment Do you presently have visiting nurse or other home services: Yes Alcohol intake: never Patient Tobacco Use Status: Former Tobacco user Tobacco use type: Cigarette e-Cigarette/Vaping Use: Never Used service: No Current occupational status: unemployed Current occupation: rt handed Physical Exam Vital Signs: BMI result Body Mass Index 42.3 Eyes Other: Anicteric GI Other: Abdomen is very corpulent, soft, benign Assessment & Plan Assessment & Plan (1) Abdominal pain: Code(s): R10.9 - Unspecified abdominal pain Category: Surgical Qualifiers: Abdominal location: left lower quadrant Qualified Code(s): R10.32 - Left lower quadrant pain Plan At present, no surgical issues to be addressed. Should patient have recurrence of her abdominal symptoms or issues, she has been instructed to contact the office. Otherwise she will follow-up p.r.n.. All questions answered. Coding Level of Care Code Est Pt Level 3 (42761) Diagnoses Abdominal pain R10.32 Abdominal location: left lower quadrant
[2024-03-29 13:12] VITALS: PULSE 62; BMI 42.3
== END 2024-03-29 13:19 | disposition home or self-care (01) ==
PROVIDERS: PCP Internal Medicine; Visit Provider Surgery
DX: R10.32 Left lower quadrant pain (principal)
CPT/HCPCS: 99213

== ENCOUNTER 2024-04-08 10:20 | Outpatient (REF) | payer OTHER, SELFPAY ==
--- NOTE | ~2024-04-08 | CT_ITS ---
EXAMINATION: CT HEAD WITHOUT CONTRAST CLINICAL INFORMATION: New onset of headaches. COMPARISON: 12/04/[address] TECHNIQUE: Contiguous axial imaging was performed from the skull base to vertex without intravenous administration of contrast. This CT examination was performed using dose optimization techniques as appropriate, variously including the following: *Automated exposure control *Adjustment of mA and/or kV according to patient size (this includes techniques or standardized protocols for targeted exams where dose is matched to indication/reason for exam; i.e. extremities or head) *Use of iterative reconstruction technique DLP: 764 mGy-cm FINDINGS: The ventricles and sulci are normal in size and configuration. No acute hemorrhage, mass effect or shift is evident. Malave-white differentiation is maintained. In the posterior fossa, the brainstem, cerebellum and fourth ventricle image normally. 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 The bony calvarium is unremarkable. The patient is undergone prior bilateral maxillary antrotomy surgery. Mild mucosal thickening is noted within bilateral maxillary sinuses. There is also some polypoid change in the nasal cavity suggesting polyp formation. CT/CT head/brain wo IV con IMPRESSION: 1. Unremarkable noncontrast brain CT. No acute hemorrhage, mass effect or shift. 2. Prior maxillary sinus surgery with mild mucosal thickening and probable small bilateral nasal polyps.
== END 2024-04-08 10:21 | disposition home or self-care (01) ==
LOC: HO.CT 10:20
PROVIDERS: PCP Internal Medicine; Visit Provider Nurse Practitioner Family
DX: R51.9 Headache, unspecified (principal)
CPT/HCPCS: 70450

== ENCOUNTER 2024-04-30 14:06 | Emergency (ER) | payer OTHER, SELFPAY ==
[2024-04-30 14:28] VITALS: BP 167/80; PULSE 92; RESP 18; TEMP 36.6; O2SAT 94; BMI 43.3
--- NOTE | 2024-04-30 15:07 | ED_ITS ---
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 Patient reports touching a plant outside and then touching her face directly after. Reports itching and redness to her face along with irritation/burning/tearing to bilateral eyes. Reports something similar happened when she was in the [place]. She was evaluated in the emergency department, given intravenous medication and discharged home. She can not recall what she was allergic to or what medications they gave her. She did not follow-up with any warhead maintenance specialist. She did not take any [id number] medications prior to arrival in the ED today. Denies new soaps, lotions, detergents. Denies recent medication changes or new antibiotics. Denies tick or insect bites. She denies sore throat, throat itching/tickling, difficulty breathing, chest pain, nausea or vomiting Related Data Home Medications ?Medication ?Instructions ?Recorded ?Confirmed bolus insulin pump, 200 unit 2 12/04/22 03/29/24 unit bolus insulin patch pump, 200 unit, disposable (CeQur Simplicity) calcium carbonate 600 mg-vitamin 1 tab PO Q12H 12/04/22 03/29/24 D3 10 mcg (400 unit) tablet escitalopram oxalate 20 mg tablet 20 mg PO DAILY 12/04/22 03/29/24 meclizine 25 mg tablet 25 mg PO DAILY PRN dizziness 12/04/22 03/29/24 gabapentin 100 mg capsule 0 mg PO 03/19/23 03/29/24 melatonin 5 mg tablet 10 mg PO BEDTIME 03/19/23 03/29/24 irbesartan 75 mg tablet 75 mg PO DAILY 01/22/24 03/29/24 Previous Rx's ?Medication ?Instructions ?Recorded polyethylene glycol 3350 17 gram 17 g PO DAILY #30 ea 12/10/22 oral powder packet sennosides 8.6 mg-docusate sodium 1 tab PO BEDTIME #30 tabs 12/10/22 50 mg tablet (Senna Plus) acetaminophen 500 mg tablet 500 mg PO Q6H PRN fever or pain 04/12/23 (Tylenol Extra Strength) #30 tabs blood sugar diagnostic (OneTouch #100 ea 06/10/23 Verio test strips) blood-glucose meter (OneTouch #1 ea 06/10/23 Verio Flex Meter) Lantus Solostar U-100 Insulin 100 24 unit (0.24 mL) subcut DAILY #15 07/21/23 unit/mL (3 mL) subcutaneous pen mL (insulin glargine) insulin lispro 100 unit/mL See Rx Instructions subcut TID #30 09/25/23 subcutaneous solution (Humalog mL U-100 Insulin) rosuvastatin 40 mg tablet 40 mg PO DAILY #90 tabs 12/14/23 insulin glargine 100 unit/mL (3 34 unit (0.34 mL) subcut DAILY #15 01/21/24 mL) subcutaneous pen (Lantus mL Solostar U-100 Insulin) cetirizine 0.24 % eye drops in a 1 drp ophthalmic (eye) BID 5 days 04/30/24 dropperette #30 ea diphenhydramine HCl 50 mg capsule 50 mg PO Q8H PRN itching #14 caps 04/30/24 prednisone 20 mg tablet 20 mg PO DAILY 4 days #4 tabs 04/30/24 Allergies Allergy/AdvReac Type Severity Reaction Status Date / Time seasonal Allergy Intermediate cough Uncoded 04/30/24 14:29 Review of Systems 2 Review of Systems: Constitutional: No fever, chills, fatigue, night sweats, weight changes ENT/Mouth: No ear pain, hearing loss, sinus pain, rhinorrhea, sore throat Eyes: No eye pain, swelling, vision changes, discharge, +redness, +tearing Cardio: No chest pain, palpitations, DE JESUS, orthopnea, peripheral edema Pulm: No SOB, cough, sputum, wheezing, dyspnea, hemoptysis GI: No nausea, vomiting, hematemesis, abdominal pain, diarrhea, constipation, hematochezia, melena : No irregular bleeding, dysuria, frequency, urgency, hesitancy, hematuria, flank pain, urinary flow changes, urinary incontinence or retention MSK: No back pain, neck pain, joint pain, myalgias Skin: No lesions, + facial rash Neuro: No weakness, numbness, paresthesias, LOC, dizziness, headache Psych: No anxiety/panic, depression, SI/HI, AH/VH All other systems reviewed and are negative. [facility] Past Medical History Attestation statement: The following information was validated with the patient. Source: old records reviewed and nursing notes reviewed Medical History Panic attack Anxiety Obesity due to excess calories Asthma REY (obstructive sleep apnea) Morbid obesity Vitamin D deficiency Obesity Dyslipidemia Hypertension Diabetic polyneuropathy associated with type 2 diabetes mellitus Diabetes type 2, uncontrolled Surgical History Abdominal pain History of carpal tunnel release S/P trigger finger release H/O foot surgery History of dilatation and curettage History of sleeve gastrectomy History of esophagogastroduodenoscopy (EGD) History of eyelid surgery Hx of tubal ligation Hx of colonoscopy Family History Family History Father Type II diabetes mellitus Obesity Mother HTN (hypertension) Brother Cancer Social History Social History Household Members: Spouse Housing: Apartment Do you presently have visiting nurse or other home services: Yes Alcohol intake: never Patient Tobacco Use Status: Former Tobacco user Tobacco use type: Cigarette e-Cigarette/Vaping Use: Never Used Advance Directives: No Advance Directives Information Provided: No Do you have a plan to hurt others: No Plan service: No Current occupational status: unemployed Current occupation: rt handed Physical Exam 2 Vital Signs: Vital Signs: Last Vital Signs Temp 98.6 F 04/30/24 18:04 Pulse 77 04/30/24 18:04 Resp 19 04/30/24 18:04 BP 149/74 H 04/30/24 18:04 Pulse Ox 97 04/30/24 18:04 O2 Del Method Room Air 04/30/24 18:04 BMI result Body Mass Index 43.3 Slightly hypertensive to 149/74, vitals otherwise WNL General: Well appearing, in no acute distress. Skin: Warm, dry, intact. Facial exam: noted erythema and swelling to forehed and cheeks. no pustular lesions. non dermatomal. no target lesions. no sloughing. spares palms/soles/webbed spaces/ mucous membranes/ eyes. no warmth. EENT: No periorbital swelling. No enophthalmous or exopthalmous. EOMs intact without pain or entrapment. PERRLA. No photophobia. No obvious foreign body or abrasion. Noted conjunctival injection and chemosis noted to b/l eyes. No hazy cornea. On tetracaine exam, no reuptake to suggest abrasion or fb. no ulceration. no dendritic lesions. Neck: Supple without LAD. FROM. Trachea midline.?airway patent. Cardiac: Chest wall symmetric. RRR. No MRG. No JVD. Lungs: Normal respiratory effort without accessory muscle use. CTA bilaterally. No rales, rhonchi, or wheezes.? Neuro: AOx3. Normal speech. Sensation intact to light touch. NV intact distally. Reflexes 2+ bilaterally. Ambulating with steady gait. Psych: Appropriate mood and affect. Responds appropriately to questions. Course Course Course Narrative: 1800 -- on re-evaluation of patient, facial rash has significantly improved. Patient can fully open her eyes. Reports the area is no longer itchy. I have concern for possible contact dermatitis versus allergic conjunctivitis. Will send cetirizine and Benadryl to pharmacy. Educated patient on limited cetirizine eye drop use due to rebound reaction. We also discussed starting patient on a short course of prednisone. I did advise patient that this can elevate her blood sugar and she tells me that she will monitor her blood sugar closely at home and if it becomes elevated then she will discontinue the prednisone. Referral to cashier courtesy booth provided. Patient has remained stable throughout ED visit today. Discussed worrisome signs and symptoms and when to return to the ED. All questions answered at this time. Patient is agreeable with disposition and stable for discharge. Medications Administered Discontinued Medications Generic Name Dose Route Start Last Admin Trade Name Freq PRN Reason Stop Dose Admin Diphenhydramine HCl 25 mg 04/30/24 15:44 04/30/24 16:06 Diphenhydramine Hcl 50 Mg/Ml Vial IVPUSH 04/30/24 15:45 25 mg ONCE ONE Administration Famotidine 20 mg 04/30/24 15:44 04/30/24 16:06 Famotidine/Pf 20 Mg/2 Ml Vial IVPUSH 04/30/24 15:45 20 mg ONCE ONE Administration Fluorescein Sodium 1 strip 04/30/24 15:08 04/30/24 15:36 Fluorescein Sodium Strip EYE-BOTH 04/30/24 15:09 1 strip ONCE ONE Administration Methylprednisolone Sodium Succinate 60 mg 04/30/24 15:44 04/30/24 16:06 Methylprednisolone Sod Succ 125 Mg/2 Ml Vial IVPUSH 04/30/24 15:45 60 mg ONCE ONE Administration Tetracaine HCl 1 drop 04/30/24 15:08 04/30/24 15:36 Tetracaine Hcl/Pf 0.5% Oph Zahra 4 Ml Drops EYE-BOTH 04/30/24 15:09 1 drop ONCE ONE Administration Medical Decision Making Medical Decision Making MDM Narrative: 74 year old Gambian speaking female with pmhx significant for type 2 diabetes with polyneuropathy, hypertension, HDL, obesity, REY on CPAP, asthma, and anxiety presents to the ED today for evaluation of bilateral eye irritation and facial rash x hours. Patient is nontoxic appearing and in NAD. On facial exam, noted erythema and swelling to forehed and cheeks. no pustular lesions. non dermatomal. no target lesions. no sloughing. spares palms/soles/webbed spaces/ mucous membranes/ eyes. no warmth. There is no periorbital swelling. No enophthalmous or exopthalmous. EOMs intact without pain or entrapment. PERRLA. No photophobia. No obvious foreign body or abrasion. Noted conjunctival injection and chemosis noted to b/l eyes. No hazy cornea. On tetracaine exam, no reuptake to suggest abrasion or fb. no ulceration. no dendritic lesions. Airway is patent. Patient is speaking in full clear sentences. Differential diagnosis includes allergic reaction, plant dermatitis, contact dermatitis, allergic conjunctivitis. History and exam findings not consistent with anaphylaxis, angioedema, lyme/tick bourne illness, herpes zoster/simplex, scabies, HFM,? dangerous etiologies of rash such as SJS/TEN, or secondary dangerous causes such as petechial rashes from thrombocytopenia or rickettsial infections.? Plan for basic labs, IV meds, re-evaluation. Differential Diagnosis Differential Diagnoses: The differential diagnosis associated with the presentation includes As above Admission/Observation Not indicated Lab Data MDM Lab Attestation statement: I reviewed the patient's lab results. As above 04/30/24 16:02 04/30/24 16:02 Labs: Lab Results 04/30/24 Range/Units 16:02 WBC 10.2 (4.8-10.8) X10*3/uL RBC 4.82 (4.20-5.50) X10*6/uL Hgb 13.9 (12.0-16.0) g/dl Hct 41.7 (37.0-47.0) % MCV 86.5 (80.0-98.0) fL MCH 28.8 (27.0-33.0) pg MCHC 33.3 (31.0-35.0) g/dl RDW 13.0 (11.0-16.0) % Plt Count 206 (160-400) X10*3/uL MPV 11.2 (9.4-12.3) fL Immature Gran % (Auto) 0.2 (0.0-0.4) % Neut % (Auto) 72.6 (45-73) % Lymph % (Auto) 18.8 L (20-40) % [place] % (Auto) 6.7 (2-11) % Eos % (Auto) 1.4 (0-4) % Baso % (Auto) 0.3 (0-2) % Lymph # (Auto) 1.9 (1.2-4.9) X10*3/uL [place] # (Auto) 0.7 (0.1-1.2) X10*3/uL Eos # (Auto) 0.1 (0.0-0.4) X10*3/uL Baso # (Auto) 0.0 (0.0-0.2) X10*3/uL Abs Immat Gran (auto) 0.02 (0.00-0.03) X10*3/uL Absolute Neuts (auto) 7.4 (2.0-8.3) x10*3/uL Absolute Nucleated RBC 0.000 (0.0-0.012) X10*3/uL Nucleated RBC % (auto) 0.0 (0.0-0.2) /100WBC Sodium 142 (135-145) mmol/L Potassium 4.4 (3.3-5.1) mmol/L Chloride 107 (96-108) mmol/L Carbon Dioxide 28 (22-29) mmol/L Anion Gap 11 L (12-20) BUN 23 H (9-16) mg/dL Creatinine 0.65 (0.5-1.4) mg/dL Estim Creat Clear Calc 73.4 Estimated GFR > 60 Random Glucose 124 H (60-115) mg/dL Calcium 9.8 (8.4-10.2) mg/dL Total Bilirubin 0.2 (0.0-1.0) mg/dL AST 17 (5-31) U/L ALT 19 (0-31) U/L Alkaline Phosphatase 71 (39-117) U/L Total Protein 7.8 (6.5-8.0) g/dL Albumin 4.0 (3.5-5.0) g/dL Independent Historian Clinical information obtained from an independent historian. History obtained from or confirmed by: Spouse () External Record Review External record reviewed: Inpatient record, Office record, Outpatient record, Prior outpatient labs, Prior outpatient radiology, Primary care record and Outside ED record Prescription Management I considered prescription management with: Other (Benadryl, cetirizine, prednisone) Chronic Conditions Patient?s care impacted by: Diabetes Social Determinants Patient?s care significantly limited by Social Determinants of Health including: Other Social Determinant of Health Critical Care Time Critical Care Time Critical Care Time: No Discharge Plan Discharge Clinical Impression: Dermatitis Patient Disposition: Home, Self-Care Instructions: Dermatitis (ED), Cold Compress or Soak (ED) Additional Instructions: You were evaluated in the ED today for facial rash and eye irritation. Your symptoms improved with medications. You likely had an allergic reaction to something that you came into contact with. Take benadryl 50mg every 8 hours as needed for itching. Cetirizine eye drops have been sent to your pharmacy to help with eye irritation. Do not use these for longer than 5 days in a row as this can cause rebound eye redness with worsening symptoms. Prednisone is a steroid that has been sent to your pharmacy. As discussed, this can raise your blood sugar so please monitor your blood sugar closely at home. If you find your blood sugar is becoming increasingly more elevated, please stop using prednisone. Follow-up with your primary care provider You have also been provided with a referral to an cashier courtesy booth for allergy testing to see what you could possibly be allergic to. Call them to schedule an appointment. They will not call you. Return with new or worsening symptoms In the case of an emergency call 911. Prescriptions: New prednisone 20 mg tablet 20 mg PO DAILY 4 Days Qty: 4 0RF diphenhydramine HCl 50 mg capsule 50 mg PO Q8H PRN (Reason: itching) Qty: 14 0RF cetirizine 0.24 % dropperette 1 drp ophthalmic (eye) BID 5 Days Qty: 30 0RF No Action (DME) blood-glucose meter [OneTouch Verio Flex meter] Misc See Rx Instructions .Route Qty: 1 0RF Rx Instructions: As directed checks 4 times a day (DME) OneTouch Verio test strips Strip See Rx Instructions .Route Qty: 100 4RF Rx Instructions: As directed test 4 times a day insulin glargine [Lantus Solostar U-100 Insulin] 100 unit/mL (3 mL) insulin pen 24 unit subcut DAILY Qty: 15 5RF insulin lispro [Humalog U-100 Insulin] 100 unit/mL solution See Rx Instructions subcut TID Qty: 30 3RF Rx Instructions: Use up to 35 units today via CeQur device subcutaneously 3 times a day; subcutaneously 3 times a day; rosuvastatin 40 mg tablet 40 mg PO DAILY Qty: 90 1RF meclizine 25 mg tablet 25 mg PO DAILY PRN (Reason: dizziness) escitalopram oxalate 20 mg tablet 20 mg PO DAILY calcium carbonate-vitamin D3 600 mg-10 mcg (400 unit) tablet 1 tab PO Q12H (DME) CeQur Simplicity 2 unit device MISCELLANEOUS DIRECTED polyethylene glycol 3350 17 gram Powder In Packet 17 g PO DAILY Qty: 30 0RF sennosides-docusate sodium [Senna Plus] 8.6-50 mg Tablet 1 tab PO BEDTIME Qty: 30 0RF acetaminophen [Tylenol Extra Strength] 500 mg tablet 500 mg PO Q6H PRN (Reason: fever or pain) Qty: 30 0RF insulin glargine [Lantus Solostar U-100 Insulin] 100 unit/mL (3 mL) insulin pen 34 unit subcut DAILY Qty: 15 0RF melatonin 5 mg tablet 10 mg PO BEDTIME gabapentin 100 mg capsule 0 mg PO irbesartan 75 mg tablet 75 mg PO DAILY Referrals: Pastor Sotomayor MD [Physician] - Radha Bran MD [Primary Care Provider] - Interventions: ED Discharge Assessment Last Done: 04/30/24 18:04 Discharge Date/Time: 04/30/24 18:05 Print Language: Gambian
[2024-04-30] MEDS: Tetracaine HCl/PF 0.5% Oph Sol 4 ML DROPS 1 DROP EYE-BOTH (15:36)
[2024-04-30] MEDS: Fluorescein Sodium STRIP 1 STRIP EYE-BOTH (15:36)
[2024-04-30 16:06] LABS: MANUAL DIFF FLAG NO
[2024-04-30] MEDS: methylPREDNISolone Sod Succ 125 MG/2 ML VIAL 60 MG IVPUSH (16:06)
[2024-04-30] MEDS: Famotidine/PF 20 MG/2 ML VIAL IVPUSH (16:06)
[2024-04-30] MEDS: diphenhydrAMINE HCL 50 MG/ML VIAL 25 MG IVPUSH (16:06)
[2024-04-30 16:07] LABS: Basophils Percent Auto 0.3 % (0-2); Eosinophils Absolute Auto 0.1 X10*3/uL (0.0-0.4); Eosinophils Percent Auto 1.4 % (0-4); Hematocrit 41.7 % (37.0-47.0); Hemoglobin 13.9 g/dl (12.0-16.0); Imm Gran Abs Auto 0.02 X10*3/uL (0.00-0.03); Imm Gran Pct Auto 0.2 % (0.0-0.4); Lymphocytes Absolute Auto 1.9 X10*3/uL (1.2-4.9); Lymphocytes Percent Auto 18.8 % (20-40); Mean Corpuscular HGB Conc 33.3 g/dl (31.0-35.0); Mean Corpuscular Hemoglobin 28.8 pg (27.0-33.0); Mean Corpuscular Volume 86.5 fL (80.0-98.0); Mean Platelet Volume 11.2 fL (9.4-12.3); Monocytes Absolute Auto 0.7 X10*3/uL (0.1-1.2); Monocytes Percent Auto 6.7 % (2-11); Neutrophils Absolute Auto 7.4 x10*3/uL (2.0-8.3); Neutrophils Percent Auto 72.6 % (45-73); Platelet Count 206 X10*3/uL (160-400); Red Blood Count 4.82 X10*6/uL (4.20-5.50); White Blood Count 10.2 X10*3/uL (4.8-10.8)
[2024-04-30 16:21] LABS: Alanine Aminotransferase 19 U/L (0-31); Alkaline Phosphatase 71 U/L (39-117); Anion Gap 11 (12-20); Aspartate Amino Transferase 17 U/L (5-31); Bilirubin Total 0.2 mg/dL (0.0-1.0); Blood Urea Nitrogen 23 mg/dL (9-16); Calcium 9.8 mg/dL (8.4-10.2); Carbon Dioxide 28 mmol/L (22-29); Chloride 107 mmol/L (96-108); Creatinine Clr Calc Pharmacy 73.4; Estimated Glomerular Filt Rate > 60; Glucose Random 124 mg/dL (60-115); Potassium 4.4 mmol/L (3.3-5.1); Sodium 142 mmol/L (135-145); Total Protein 7.8 g/dL (6.5-8.0)
[2024-04-30 17:43] VITALS: BP 149/74; PULSE 77; RESP 19; TEMP 37; O2SAT 97
[2024-04-30 18:04] VITALS: BP 149/74; PULSE 77; RESP 19; TEMP 37; O2SAT 97
--- NOTE | 2024-04-30 18:04 | PC.NURSE ---
pt medicated per OCT w improvement in redness and itching.
== END 2024-04-30 18:05 | disposition home or self-care (01) ==
PROVIDERS: Physician Assistant Medical; Emergency Provider Emergency Medicine; PCP Internal Medicine
DX: L30.9 Dermatitis, unspecified (principal); E11.9 Type 2 diabetes mellitus without complications; I10 Essential (primary) hypertension; E78.5 Hyperlipidemia, unspecified
CPT/HCPCS: 36415; 80053; 85025; 96374; 96375; 99282; 99284; J1200; J2919

== ENCOUNTER 2024-05-13 13:39 | Outpatient (AMB) | payer OTHER, SELFPAY ==
--- NOTE | 2024-05-13 13:42 | HO.NEPHOV_ITS ---
Vital Signs 05/13/24 13:43 Height 5 ft 2 in Weight 238 lb 2 oz BMI 43.5 BP 116/70 Blood Pressure Location Rt brachial Position Sitting Pulse 90 Pulse Source Pulse Oximeter Pulse Oximetry (%) 97 Oxygen Delivery Method Room Air Intake Visit Reasons: 3 mon follow up- Conf Medical Practitioners Required: Yes Medical Practitioners Services: Medical Practitioners Present Medical Practitioners Name: Ranjith De La Cruz105 Accompanied by: Spouse Allergies seasonal Allergy (Intermediate, Uncoded 04/30/24 14:29) cough HPI Comments Details: I had the pleasure of seeing Halley in follow up for hypertension on a backdrop of history of proteinuria. She has diabetes mellitus. She denies retinopathy. She is taking angiotensin receptor max. She avoids excessive nonsteroidal anti-inflammatories. Her renal functions are normal. She does not have any chest pain, shortness of breath, paroxysmal nocturnal dyspnea, orthopnea, pedal edema, orthostatic symptoms, epistaxis, photosensitivity, skin rashes, orthostatic symptoms, sensorineural deafness, microscopic hematuria, new bone or back pain. She claims to be compliant with her medications and is closely followed up by her PCP. There were no new active complaints at the time of this office visit. [facility] Medical History Panic attack Anxiety Obesity due to excess calories Asthma REY (obstructive sleep apnea) Morbid obesity Vitamin D deficiency Obesity Dyslipidemia Hypertension Diabetic polyneuropathy associated with type 2 diabetes mellitus Diabetes type 2, uncontrolled Surgical History Abdominal pain History of carpal tunnel release S/P trigger finger release H/O foot surgery History of dilatation and curettage History of sleeve gastrectomy History of esophagogastroduodenoscopy (EGD) History of eyelid surgery Hx of tubal ligation Hx of colonoscopy Family History Father Type II diabetes mellitus Obesity Mother HTN (hypertension) Brother Cancer Social History Household Members: Spouse Housing: Apartment Do you presently have visiting nurse or other home services: Yes Alcohol intake: never Patient Tobacco Use Status: Former Tobacco user Tobacco use type: Cigarette e-Cigarette/Vaping Use: Never Used service: No Current occupational status: unemployed Current occupation: rt handed Review of Systems Const All systems reviewed & are unremarkable except as noted in HPI and below Physical Exam Vital Signs: Last Vital Signs Pulse 90 05/13/24 13:43 BP 116/70 05/13/24 13:43 Pulse Ox 97 05/13/24 13:43 Oxygen Delivery Method Room Air 05/13/24 13:43 BMI result Body Mass Index 43.5 Const General: comfortable and no acute distress Orientation/consciousness: patient oriented x3 HEENT Head: Yes normocephalic Mouth: Normal oral and palatal mucosa present Eyes EOM: EOMs intact bilaterally Neck Neck: Yes supple Resp Auscultation: clear to auscultation bilaterally Cardio Jugular venous distension: no JVD Rate: regular rate GI Palpation (GI): Soft to palpation Auscultation: normal bowel sounds General: Yes no CVA tenderness Back/Spine/Pelvis Back: no CVA tenderness Skin General skin exam: no rashes or lesions noted Neuro General: patient oriented x3 and moves all extremities Extrem General: Yes no pedal edema Results Reviewed Nephrology Results: Hgb 13.9 g/dl (12.0-16.0) 04/30/24 WBC 10.2 X10*3/uL (4.8-10.8) 04/30/24 Plt Count 206 X10*3/uL (160-400) 04/30/24 Sodium 142 mmol/L (135-145) 04/30/24 Potassium 4.4 mmol/L (3.3-5.1) 04/30/24 Chloride 107 mmol/L (96-108) 04/30/24 Carbon Dioxide 28 mmol/L (22-29) 04/30/24 BUN 23 mg/dL (9-16) H 04/30/24 Creatinine 0.65 mg/dL (0.5-1.4) 04/30/24 Calcium 9.8 mg/dL (8.4-10.2) 04/30/24 Urine Creatinine 230.20 mg/dL 03/22/24 Protein/Creatinin Ratio 0.17 (<0.2) 03/22/24 Assessment & Plan Assessment & Plan (1) Angiomyolipoma of kidney: Code(s): D17.71 - Benign lipomatous neoplasm of kidney Category: Medical (2) Diabetic nephropathy: Code(s): E11.21 - Type 2 diabetes mellitus with diabetic nephropathy Category: Medical Qualifiers: Diabetes mellitus type: type 2 Qualified Code(s): E11.21 - Type 2 diabetes mellitus with diabetic nephropathy (3) Hypertension: Code(s): I10 - Essential (primary) hypertension Category: Medical Qualifiers: Hypertension type: essential hypertension Qualified Code(s): I10 - Essential (primary) hypertension Plan She has 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 Her protein is undetectable on Avapro 150 mg daily which should help her with hypertension, proteinuria and provide her renal protection being a diabetic. Her renal functions are normal. His serum potassium is at baseline. She has angiomyolipoma of the kidney for which I plan to do a surveillance ultrasound with time and will refer to intervention Radiology based on evolving data for embolization. Her blood pressure needs to be kept at goal. She is on statins. Given she is type 2 diabetic, she is a great candidate for SGLT2 inhibitor. She should avoid nonsteroidal anti-inflammatories and maintain good hydration along with keeping her blood sugar at goal. All these have been discussed in detail. Answered all questions. Follow-up appointment given. Orders: Orders Creatinine 6 Months E11.21 - Type 2 diabetes mellitus with diabetic nephropathy Blood Urea Nitrogen 6 Months E11.21 - Type 2 diabetes mellitus with diabetic nephropathy Electrolytes 6 Months E11.21 - Type 2 diabetes mellitus with diabetic nephropathy Protein Creatinine Ratio, Ur 6 Months E11.21 - Type 2 diabetes mellitus with diabetic nephropathy Coding Level of Care Code Est Pt Level 4 (68597) Diagnoses Angiomyolipoma of kidney D17.71 Diabetic nephropathy associated with type 2 diabetes mellitus E11.21 Diabetes mellitus type: type 2 Essential hypertension I10 Hypertension type: essential hypertension
[2024-05-13 13:43] VITALS: BP 116/70; PULSE 90; O2SAT 97; BMI 43.5
== END 2024-05-13 14:04 | disposition home or self-care (01) ==
PROVIDERS: PCP Internal Medicine; Visit Provider Internal Medicine Nephrology
DX: D17.71 Benign lipomatous neoplasm of kidney (principal); E11.21 Type 2 diabetes mellitus with diabetic nephropathy; I10 Essential (primary) hypertension
CPT/HCPCS: 99214

== ENCOUNTER → 2024-05-13 13:39 | Outpatient (BNVA) | payer OTHER, SELFPAY | PROVIDERS: PCP Internal Medicine; Visit Provider Internal Medicine Nephrology | DX: E11.21 Type 2 diabetes mellitus with diabetic nephropathy (principal); I10 Essential (primary) hypertension; D17.71 Benign lipomatous neoplasm of kidney | CPT/HCPCS: 99212 ==

== ENCOUNTER 2024-05-23 12:24 | Outpatient (AMB) | payer OTHER, SELFPAY ==
--- NOTE | 2024-05-23 12:26 | A.OFFVIS_ITS ---
VS Expanded 05/23/24 12:34 BP 134/62 Blood Pressure Location Rt brachial Blood Pressure Position Sitting Pulse 69 Pulse Source Pulse Oximeter Temp 96.0 F L Temperature Source Temporal Artery Scan Pulse Oximetry 96 Oxygen Delivery Method Room Air Height 5 ft Weight 237 lb BMI 46.3 Body Fat % 43.5 Body Fat Mass 103.2 Fat Free Mass 133.8 Visceral Fat Rating 17.0 Body Water % 39.9 Body Water Mass 94.6 Muscle Mass/Score 127.0 Basal Metabolic Rate/Score 1,850 Intake Visit Reasons: (OV) PO LSG 02/15/19 Manager Instrumentation Required: Yes Manager Instrumentation Name: Rommel [id number] Allergies seasonal Allergy (Intermediate, Uncoded 04/30/24 14:29) cough Medication List - Last Reconciled 05/23/24 by TRENT Zhang acetaminophen (Tylenol Extra Strength) 500 mg PO Q6H PRN blood sugar diagnostic (OneTouch Verio test strips) As directed test 4 times a day blood-glucose meter (OneTouch Verio Flex Meter) As directed checks 4 times a day bolus insulin pump, 200 unit (CeQur Simplicity) calcium carbonate-vitamin D3 600 mg-10 mcg (400 unit) 1 tab PO Q12H cetirizine 0.24% 1 drp ophthalmic (eye) BID 5 days diphenhydramine HCl 50 mg PO Q8H PRN escitalopram oxalate 20 mg PO DAILY gabapentin 0 mg PO insulin glargine (Lantus Solostar U-100 Insulin) 34 units (0.34 mL) subcut DAILY insulin lispro (Humalog U-100 Insulin) Use up to 35 units today via CeQur device subcutaneously 3 times a day; subcutaneously 3 times a day; irbesartan 75 mg PO DAILY Lantus Solostar U-100 Insulin (insulin glargine) 24 units (0.24 mL) subcut DAILY NS meclizine 25 mg PO DAILY PRN melatonin 10 mg PO BEDTIME polyethylene glycol 3350 17 grams PO DAILY prednisone 20 mg PO DAILY 4 days rosuvastatin 40 mg PO DAILY sennosides-docusate sodium 8.6-50 mg (Senna Plus) 1 tab PO BEDTIME HPI Comments Details: This?is a?74?yo female who is s/p LSG 02/15/2019. Presents for 4 year 3 month post op visit. Weight at last visit on 11/14/2022 was 233.4 pounds with a BMI of 45.6, weight today is 237 pounds, representing a 3.6 pound weight gain with a BMI today of 46.3.? Pt reports she is lacking motivation, energy. Continues to have anxiety, now has a therapist she sees via telehealth. Present meal plan includes: breakfast- recommended 30g protein shake at last visit gets lunch through a program- usually protein and vegetables dinner- whatever she has available like rice, veg, meat continues to struggle with anxiety causing her to want to eat Exercise routine includes: recommended home videos at last appt [facility]LY [facility] Medical History Panic attack Anxiety Obesity due to excess calories Asthma REY (obstructive sleep apnea) Morbid obesity Vitamin D deficiency Obesity Dyslipidemia Hypertension Diabetic polyneuropathy associated with type 2 diabetes mellitus Diabetes type 2, uncontrolled Surgical History Abdominal pain History of carpal tunnel release S/P trigger finger release H/O foot surgery History of dilatation and curettage History of sleeve gastrectomy History of esophagogastroduodenoscopy (EGD) History of eyelid surgery Hx of tubal ligation Hx of colonoscopy Family History Father Type II diabetes mellitus Obesity Mother HTN (hypertension) Brother Cancer Social History Household Members: Spouse Housing: Apartment Do you presently have visiting nurse or other home services: Yes Alcohol intake: never Patient Tobacco Use Status: Former Tobacco user Tobacco use type: Cigarette e-Cigarette/Vaping Use: Never Used service: No Current occupational status: unemployed Current occupation: rt handed Assessment & Plan Assessment & Plan (1) Morbid obesity: Code(s): E66.01 - Morbid (severe) obesity due to excess calories Category: Medical (2) Status post sleeve gastrectomy: Code(s): Z90.3 - Acquired absence of stomach [part of] Category: Surgical Plan Pt agrees to start new meal plan. Breakfast- premier premade shake Lunch- meal delivery, choose protein and veg Dinner- Pure Protein bar If feels hungry- can have additional part of bar or shake Exercise- likes to walk, can also do home videos Vitamin labs ordered, recently had a lot of other bloodwork done. RTC 6 months. I spent a total of 30 minutes reviewing/updating records, examining the patient and counseling the patient on weight management as detailed above. Orders: Orders Zinc Today Z90.3 - Acquired absence of stomach [part of] Vitamin D 25-OH Total Today Z90.3 - Acquired absence of stomach [part of] TSH reflex Free T4 Today Z90.3 - Acquired absence of stomach [part of] Vitamin A Today Z90.3 - Acquired absence of stomach [part of] Vitamin B12 and Folate Today Z90.3 - Acquired absence of stomach [part of] Vitamin B1 Today Z90.3 - Acquired absence of stomach [part of] Hemoglobin A1c Today Z90.3 - Acquired absence of stomach [part of]
[2024-05-23 12:34] VITALS: BP 134/62; PULSE 69; TEMP 35.6; O2SAT 96; BMI 46.3
== END 2024-05-23 13:16 | disposition home or self-care (01) ==
PROVIDERS: PCP Internal Medicine; Visit Provider Physician Assistant Surgical
DX: E66.01 Morbid (severe) obesity due to excess calories (principal); Z68.42 Body mass index [BMI] 45.0-49.9, adult; Z90.3 Acquired absence of stomach [part of]; Z98.84 Bariatric surgery status
CPT/HCPCS: 99214; G2211

== ENCOUNTER → 2024-05-23 12:24 | Outpatient (BNVA) | payer OTHER, SELFPAY | PROVIDERS: PCP Internal Medicine; Visit Provider Physician Assistant Surgical | DX: E66.01 Morbid (severe) obesity due to excess calories (principal); Z71.3 Dietary counseling and surveillance; Z98.84 Bariatric surgery status; Z68.42 Body mass index [BMI] 45.0-49.9, adult | CPT/HCPCS: 99212 ==

== ENCOUNTER 2024-05-24 11:31 | Outpatient (REF) | payer OTHER, SELFPAY ==
[2024-05-24 13:11] LABS: TSH reflex Free T4 2.58 uIU/mL (0.32-4.0); Vitamin D 25-OH Total 16.3 ng/mL (>30)
[2024-05-24 13:25] LABS: Folate 9.9 ng/mL (> or = 4.0); Vitamin B12 605 pg/mL (200-900)
[2024-05-24 16:04] LABS: Estimated Average Glucose 151 mg/dL; Hemoglobin A1c % 6.9 % (<6.0)
[2024-05-27 00:57] LABS: Zinc 62 mcg/dL (60-130)
[2024-05-28 21:43] LABS: Vitamin A 29 mcg/dL (38-98)
[2024-05-30 06:28] LABS: Vitamin B1 13 nmol/L (8-30)
== END 2024-05-24 11:32 | disposition home or self-care (01) ==
LOC: HO.LAB 11:31
PROVIDERS: PCP Internal Medicine; Visit Provider Physician Assistant Surgical
DX: Z90.3 Acquired absence of stomach [part of] (principal); Z13.1 Encounter for screening for diabetes mellitus
CPT/HCPCS: 36415; 82306; 82607; 82746; 83036; 84425; 84443; 84590; 84630

== ENCOUNTER 2024-06-02 08:57 | Outpatient (AMB) | payer OTHER, SELFPAY ==
--- NOTE | 2024-06-02 09:03 | A.OFFVIS_ITS ---
Vital Signs 06/02/24 09:04 Height 5 ft Weight 240 lb 4.862 oz BMI 46.9 BP 132/70 Blood Pressure Location Rt brachial Position Sitting Pulse 80 Pulse Source Pulse Oximeter Pulse Oximetry (%) 97 Oxygen Delivery Method Room Air Intake Visit Reasons: Obstructive sleep apnea Curriculum Designer Required: No Allergies seasonal Allergy (Intermediate, Uncoded 06/02/24 09:06) cough HPI Comments Details: The patient is a 74-year-old woman with a known history of obstructive sleep apnea previously on CPAP in addition to asthma. The patient overall has been complaining of increasing daytime drowsiness. She also complains of headaches. She has significant snoring and sometimes wakes her up from a sound sleep. The patient initially had CPAP. However, she was not getting used to the machine and the mask. Therefore she stopped it. Now she has had increased cardiovascular risk factors including have consider anemia hypertension diabetes and she is concerning that her daytime drowsiness is getting worse. Therefore this time the patient needs to undergo a repeat sleep study in order to get air situated with CPAP again. In the meantime she also has diagnosis of asthma. She does have a rescue inhaler that she seldom uses. She also uses Breo daily. 08/05/2021 the patient is here for a pulmonary follow-up visit. The patient overall has been doing Well. She continues to have daytime drowsiness with an elevated [place] score of 10/24. She did undergo a home sleep study. Her AHI was up to 15. She had significant apneic episodes max duration was 90 seconds. She also had some did saturations during the apneic episodes. The patient needs to start CPAP therapy at this time. Will make arrangements to start APAP with local DME company at this time. In the meantime she continues to use her rescue inhaler as needed. She has not required the Advair. Otherwise patient is without any other complaints. 05/18/2023 the patient is here for a pulmonary follow-up visit. The patient has been lost to follow-up. The patient was last seen back in 2020 and she did have moderate degree of sleep apnea. The patient was started on CPAP. The CPAP actually has been very affecting beneficial. She has a hard time being without it. She does use it for more than 4 hours a night. But at some point she started getting supplies primarily because she probably did follow-up in the office although I am sure she still active with the [employer] company, [employer]. I did reach out to [employer] so they can not give me additional information. I will send a script out to [employer] to make sure that she gets reactivated and get supplies in order for her to continue using the CPAP safely. In the meantime she does have the P 10 nasal pillows which she likes. I do not have a pillow available so therefore I did provide her with a N30i SW mask, which she felt very comfortable with. Therefore she will try this mass and I will also request from the [employer] company. In the meantime she also has a sister asthma. She has been stable. She has not had to use her rescue inhaler. She has not had any flare-ups and has not use any prednisone either. Overall the patient is doing well from that standpoint. Therefore will have to just get a situated with CPAP. Will make sure she has a her refills. If the patient is not active with the [employer] company explained to her that she may need to undergo a repeat sleep study. 06/02/2024 the patient is here for a pulmonary follow-up visit. Overall the patient has been doing well. She has been using CPAP every night. CPAP therapy has been affecting beneficial. She does use the nasal pillows. Although, she does not feel like it is working as well now. Can not get any information from the machine. Likely not able to download any information. Therefore I will request a replacement machine from her current [employer] company. From a respiratory status she is doing well. She still has dyspnea on exertion. The patient has been working with her weight and trying to exercise and lose weight. Although is very hard for her. She does take allergy medication. She has a rescue inhaler but she has not required. [facility] Medical History Panic attack Anxiety Obesity due to excess calories Asthma REY (obstructive sleep apnea) Morbid obesity Vitamin D deficiency Obesity Dyslipidemia Hypertension Diabetic polyneuropathy associated with type 2 diabetes mellitus Diabetes type 2, uncontrolled Surgical History Abdominal pain History of carpal tunnel release S/P trigger finger release H/O foot surgery History of dilatation and curettage History of sleeve gastrectomy History of esophagogastroduodenoscopy (EGD) History of eyelid surgery Hx of tubal ligation Hx of colonoscopy Family History Father Type II diabetes mellitus Obesity Mother HTN (hypertension) Brother Cancer Social History Household Members: Spouse Housing: Apartment Do you presently have visiting nurse or other home services: Yes Alcohol intake: never Patient Tobacco Use Status: Former Tobacco user Tobacco use type: Cigarette e-Cigarette/Vaping Use: Never Used service: No Current occupational status: unemployed Current occupation: rt handed Review of Systems Const Reports daytime sleepiness, Denies night sweats, Reports snoring, Reports stops breathing during sleep and Reports weight gain ENT Denies change in voice, Denies lip swelling, Denies mouth pain, Reports nasal congestion, Reports nasal discharge and Denies tongue swelling Card Denies chest pain and Reports dyspnea on exertion Resp Reports cough, Reports dyspnea on exertion, Reports snoring and Reports wheezing GI Denies abdominal pain Musc Denies no additional complaints Neuro Denies Neuro-related abnormal movements Psych Denies no additional complaints Luis Miguel/Lymph Denies easy bleeding and Denies lymphadenopathy Aller/Immun Denies lip swelling, Denies tongue swelling and Reports wheezing Physical Exam Vital Signs: Last Vital Signs Pulse 80 06/02/24 09:04 BP 132/70 06/02/24 09:04 Pulse Ox 97 06/02/24 09:04 Oxygen Delivery Method Room Air 06/02/24 09:04 BMI result Body Mass Index 46.9 Const General: alert Neck Neck: Yes normal visual inspection, Yes full ROM and Yes no lymphadenopathy Chest Chest palpation & inspection: normal inspection of the chest Resp Auscultation: diminished lung sounds Cardio Rate: regular rate Rhythm: regular rhythm Heart sounds: S1 normal heart sound present and S2 normal heart sound present GI Palpation (GI): Soft to palpation and nontender Auscultation: normal bowel sounds Skin General skin exam: rashes and/or lesions noted Assessment & Plan Assessment & Plan (1) REY (obstructive sleep apnea): Comment: cpap Code(s): G47.33 - Obstructive sleep apnea (adult) (pediatric) Category: Medical (2) Asthma: Code(s): J45.909 - Unspecified asthma, uncomplicated Category: Medical Qualifiers: Asthma complication type: uncomplicated Asthma persistence: persistent Asthma severity: moderate Qualified Code(s): J45.40 - Moderate persistent asthma, uncomplicated Plan continue APAP 6-16 at this time, requesting a replacement APAP EDWIGE needed F/U 8-12 months Coding Level of Care Code Est Pt Level 4 (48664) Diagnoses REY (obstructive sleep apnea) G47.33 Moderate persistent asthma without complication J45.40 Asthma complication type: uncomplicated Asthma persistence: persistent Asthma severity: moderate Time Spent (min) 16
[2024-06-02 09:04] VITALS: BP 132/70; PULSE 80; O2SAT 97; BMI 46.9
== END 2024-06-02 09:28 | disposition home or self-care (01) ==
PROVIDERS: PCP Internal Medicine; Visit Provider Hospitalist
DX: G47.33 Obstructive sleep apnea (adult) (pediatric) (principal); J45.40 Moderate persistent asthma, uncomplicated
CPT/HCPCS: 99214

== ENCOUNTER → 2024-06-02 08:57 | Outpatient (BNVA) | payer OTHER, SELFPAY | PROVIDERS: PCP Internal Medicine; Visit Provider Hospitalist | DX: G47.33 Obstructive sleep apnea (adult) (pediatric) (principal); J45.40 Moderate persistent asthma, uncomplicated; Z99.89 Dependence on other enabling machines and devices | CPT/HCPCS: 99212 ==

== ENCOUNTER 2024-08-24 00:22 | Emergency (ER) | payer OTHER, SELFPAY ==
--- NOTE | ~2024-08-24 | XR_ITS ---
EXAMINATION: XR CHEST CLINICAL INFORMATION: cough COMPARISON: CT chest 12/04/2022, chest radiograph 03/17/2022 TECHNIQUE: Frontal view of the chest was obtained. FINDINGS: No significant abnormality is noted involving the heart, lungs, mediastinum, bony thorax or soft tissues aside from old healed fracture of the left humeral head. XR/XR chest 1V IMPRESSION: Unremarkable examination. Electronically signed by: Patrice Jones MD 08/24/2024 12:57 AM [facility]
[2024-08-24 00:26] VITALS: BP 99/57; PULSE 90; RESP 20; TEMP 37.9; O2SAT 96; BMI 43.1
[2024-08-24 00:57] LABS: COVID-19 Test Negative (Negative); IDNOW Serial# 55D5AD1C; IDNOW Serial# 58CA691E; Influenza A Positive (Negative); Influenza B2 Negative (Negative)
[2024-08-24 02:02] VITALS: O2SAT 96
[2024-08-24 02:03] VITALS: PULSE 88
--- NOTE | 2024-08-24 02:04 | ED_ITS ---
HPI - URI/Sore Throat General Chief Complaint: Upper Respiratory Symptoms Stated Complaint: fever, headache Time Seen by Provider: 08/24/24 01:43 Source: patient Mode of arrival: ambulatory Limitations: no limitations History of Present Illness ED Provider: HPI Narrative: Patient's history of asthma complaining of nasal congestion sore throat cough body aches low-grade fever for last 3 days could not find her inhaler hence came here no other family member sick Related Data Home Medications ?Medication ?Instructions ?Recorded ?Confirmed bolus insulin pump, 200 unit 2 12/04/22 05/23/24 unit bolus insulin patch pump, 200 unit, disposable (CeQur Simplicity) calcium 600 mg (as 1 tab PO Q12H 12/04/22 05/23/24 carbonate)-vitamin D3 10 mcg (400 unit) tablet escitalopram oxalate 20 mg tablet 20 mg PO DAILY 12/04/22 05/23/24 meclizine 25 mg tablet 25 mg PO DAILY PRN dizziness 12/04/22 05/23/24 gabapentin 100 mg capsule 0 mg PO 03/19/23 05/23/24 melatonin 5 mg tablet 10 mg PO BEDTIME 03/19/23 05/23/24 irbesartan 75 mg tablet 75 mg PO DAILY 01/22/24 05/23/24 CPAP (CPAP Machine/Device) 06/02/24 Previous Rx's ?Medication ?Instructions ?Recorded polyethylene glycol 3350 17 gram 17 g PO DAILY #30 ea 12/10/22 oral powder packet sennosides 8.6 mg-docusate sodium 1 tab PO BEDTIME #30 tabs 12/10/22 50 mg tablet (Senna Plus) acetaminophen 500 mg tablet 500 mg PO Q6H PRN fever or pain 04/12/23 (Tylenol Extra Strength) #30 tabs blood sugar diagnostic (OneTouch #100 ea 06/10/23 Verio test strips) blood-glucose meter (OneTouch #1 ea 06/10/23 Verio Flex Meter) Lantus Solostar U-100 Insulin 100 24 unit (0.24 mL) subcut DAILY #15 07/21/23 unit/mL (3 mL) subcutaneous pen mL (insulin glargine) insulin lispro 100 unit/mL See Rx Instructions subcut TID #30 09/25/23 subcutaneous solution (Humalog mL U-100 Insulin) cetirizine 0.24 % eye drops in a 1 drp ophthalmic (eye) BID 5 days 04/30/24 dropperette #30 ea diphenhydramine HCl 50 mg capsule 50 mg PO Q8H PRN itching #14 caps 04/30/24 prednisone 20 mg tablet 20 mg PO DAILY 4 days #4 tabs 04/30/24 cholecalciferol (vitamin D3) 125 125 mcg PO DAILY #90 caps 06/09/24 mcg (5,000 unit) capsule vitamin A palmitate 3,000 mcg 10,000 unit PO DAILY #90 caps 06/09/24 (10,000 unit) capsule rosuvastatin 40 mg tablet 40 mg PO DAILY #90 tabs 06/13/24 insulin glargine 100 unit/mL (3 24 unit (0.24 mL) subcut DAILY #9 08/14/24 mL) subcutaneous pen (Lantus mL Solostar U-100 Insulin) tirzepatide 2.5 mg/0.5 mL 2.5 mg (0.5 mL) subcut QWEEK 4 08/14/24 subcutaneous pen injector weeks #2 mL (Mounjaro) albuterol sulfate 90 mcg/actuation 2 puff inhalation Q6H PRN 08/24/24 aerosol inhaler shortness of breath or wheezing #8.5 grams codeine 10 mg-guaifenesin 100 mg/5 10 ml PO Q6H PRN cough #237 mL 08/24/24 mL oral liquid Allergies Allergy/AdvReac Type Severity Reaction Status Date / Time seasonal Allergy Intermediate cough Uncoded 08/24/24 00:29 Review of Systems Review of Systems: Yes all other systems are reviewed and are negative PMFSH Past Medical History Medical History Panic attack Anxiety Obesity due to excess calories Asthma REY (obstructive sleep apnea) Morbid obesity Vitamin D deficiency Obesity Dyslipidemia Hypertension Diabetic polyneuropathy associated with type 2 diabetes mellitus Diabetes type 2, uncontrolled Surgical History Abdominal pain History of carpal tunnel release S/P trigger finger release H/O foot surgery History of dilatation and curettage History of sleeve gastrectomy History of esophagogastroduodenoscopy (EGD) History of eyelid surgery Hx of tubal ligation Hx of colonoscopy Family History Family History Father Type II diabetes mellitus Obesity Mother HTN (hypertension) Brother Cancer Social History Social History Household Members: Spouse Housing: Apartment Do you presently have visiting nurse or other home services: Yes Alcohol intake: never Patient Tobacco Use Status: Former Tobacco user Tobacco use type: Cigarette e-Cigarette/Vaping Use: Never Used Advance Directives: No Do you have a plan to hurt others: No Plan service: No Current occupational status: unemployed Current occupation: rt handed Physical Exam Vital Signs: Vital Signs: Last Vital Signs Temp 100.6 F H 08/24/24 03:05 Pulse 95 08/24/24 03:05 Resp 16 08/24/24 03:05 BP 155/74 H 08/24/24 03:05 Pulse Ox 94 08/24/24 03:05 O2 Del Method Room Air 08/24/24 03:05 BMI result Body Mass Index 43.1 Appearance: Alert. Oriented X3. No acute distress. ENT: Pharynx normal. Oral Mucosa moist clear rhinorrhea Neck: Normal inspection. Neck supple. CVS: Normal heart rate and rhythm. Pulses normal. Respiratory: No respiratory distress. Equal air entry bilateral, no wheezing/rales/rhonchi prolonged expiration Skin: Skin warm and dry. Normal skin color. Normal skin turgor. Extremities: No lower extremity edema. Neuro: Oriented X 3. Medications Administered Discontinued Medications Generic Name Dose Route Start Last Admin Trade Name Oliq PRN Reason Stop Dose Admin Albuterol Sulfate 2 puff 08/24/24 01:51 08/24/24 02:36 Albuterol Sulfate 90 Mcg 8 Gm Inhaler INHALE 08/24/24 01:52 2 puff ONCE ONE Administration Guaifenesin/Codeine Phosphate 10 ml 08/24/24 01:51 08/24/24 02:56 Guaifen/Codeine Sf 200/20/10ml 10 Ml Liquid PO 08/24/24 01:52 10 ml ONCE ONE Administration Medical Decision Making Medical Decision Making MDM Narrative: Patient with influenza a with history of asthma symptomatic for last 3 days saturating 94% - 96%on room air will prescribe her inhaler and cough syrup advised to have social distancing and follow with PCP Differential Diagnosis Differential Diagnoses: The differential diagnosis associated with the presentation includes Asthma exacerbation/COVID/flu pneumonia Lab Data MDM Lab Attestation statement: I reviewed the patient's lab results. Labs: Lab Results 08/24/24 Range/Units 00:37 COVID-19 ([place]) Negative (Negative) COVID-19 Clin Com See Note Influenza Type A ([place]) Positive A (Negative) Influenza Type B ([place]) Negative (Negative) Influenza A & B Note See Note Independent Interpretation I performed an independent interpretation of an: Plain X-Ray Interpretation: NAD Radiology Impression Discussion of test interpretation with radiology: I have reviewed the radiolog ist's reading. Discharge Plan Discharge Clinical Impression: Influenza A Patient Disposition: Home, Self-Care Instructions: Influenza (ED) Additional Instructions: Social distancing as advised Continue to use your albuterol inhaler cough syrup as prescribed Drink plenty of fluids Prescriptions: New codeine-guaifenesin 10-100 mg/5 mL liquid 10 ml PO Q6H PRN (Reason: cough) Qty: 237 0RF albuterol sulfate 90 mcg/actuation HFA aerosol inhaler 2 puff inhalation Q6H PRN (Reason: shortness of breath or wheezing) Qty: 8.5 0RF No Action (DME) blood-glucose meter [OneTouch Verio Flex meter] Misc See Rx Instructions .Route Qty: 1 0RF Rx Instructions: As directed checks 4 times a day (DME) OneTouch Verio test strips Strip See Rx Instructions .Route Qty: 100 4RF Rx Instructions: As directed test 4 times a day insulin glargine [Lantus Solostar U-100 Insulin] 100 unit/mL (3 mL) insulin pen 24 unit subcut DAILY Qty: 15 5RF insulin lispro [Humalog U-100 Insulin] 100 unit/mL solution See Rx Instructions subcut TID Qty: 30 3RF Rx Instructions: Use up to 35 units today via CeQur device subcutaneously 3 times a day; subcu taneously 3 times a day; vitamin A palmitate 3,000 mcg (10,000 unit) capsule 10,000 unit PO DAILY Qty: 90 3RF cholecalciferol (vitamin D3) 125 mcg (5,000 unit) capsule 125 mcg PO DAILY Qty: 90 3RF rosuvastatin 40 mg tablet 40 mg PO DAILY Qty: 90 0RF insulin glargine [Lantus Solostar U-100 Insulin] 100 unit/mL (3 mL) insulin pen 24 unit subcut DAILY Qty: 9 1RF Mounjaro 2.5 mg/0.5 mL pen injector 2.5 mg subcut QWEEK 28 Days Qty: 2 1RF prednisone 20 mg tablet 20 mg PO DAILY 4 Days Qty: 4 0RF diphenhydramine HCl 50 mg capsule 50 mg PO Q8H PRN (Reason: itching) Qty: 14 0RF cetirizine 0.24 % dropperette 1 drp ophthalmic (eye) BID 5 Days Qty: 30 0RF meclizine 25 mg tablet 25 mg PO DAILY PRN (Reason: dizziness) escitalopram oxalate 20 mg tablet 20 mg PO DAILY calcium carbonate-vitamin D3 600 mg-10 mcg (400 unit) tablet 1 tab PO Q12H (DME) CeQur Simplicity 2 unit device MISCELLANEOUS DIRECTED polyethylene glycol 3350 17 gram Powder In Packet 17 g PO DAILY Qty: 30 0RF sennosides-docusate sodium [Senna Plus] 8.6-50 mg Tablet 1 tab PO BEDTIME Qty: 30 0RF acetaminophen [Tylenol Extra Strength] 500 mg tablet 500 mg PO Q6H PRN (Reason: fever or pain) Qty: 30 0RF melatonin 5 mg tablet 10 mg PO BEDTIME gabapentin 100 mg capsule 0 mg PO irbesartan 75 mg tablet 75 mg PO DAILY (DME) CPAP Machine/Device Device See Rx Instructions .ROUTE Rx Instructions: As directed Interventions: ED Discharge Assessment Last Done: 08/24/24 03:05 Discharge Date/Time: 08/24/24 03:05 Print Language: Nigerien
[2024-08-24] MEDS: Albuterol Sulfate 90 MCG 8 GM INHALER 2 PUFF INHALE (02:36)
[2024-08-24 02:49] VITALS: PULSE 90; RESP 18; O2SAT 96
[2024-08-24 02:50] VITALS: BP 155/74; PULSE 95; RESP 16; TEMP 38.1; O2SAT 94
[2024-08-24] MEDS: guaiFEN/Codeine SF 200/20/10ML 10 ML LIQUID PO (02:56)
[2024-08-24 03:05] VITALS: BP 155/74; PULSE 95; RESP 16; TEMP 38.1; O2SAT 94
== END 2024-08-24 03:05 | disposition home or self-care (01) ==
PROVIDERS: Emergency Provider Internal Medicine; PCP Internal Medicine
DX: J09.X2 Influenza due to identified novel influenza A virus with other respiratory manifestations (principal); R50.9 Fever, unspecified; R51.9 Headache, unspecified; M79.10 Myalgia, unspecified site; R05.9 Cough, unspecified; Z11.52 Encounter for screening for COVID-19
CPT/HCPCS: 71045; 87502; 87635; 94640; 99284; 99285

== ENCOUNTER 2024-09-21 12:42 | Outpatient (AMB) | payer OTHER, SELFPAY ==
--- NOTE | 2024-09-21 12:50 | A.OFFVIS_ITS ---
Vital Signs 09/21/24 13:10 Height 5 ft 2 in Weight 235 lb 14.314 oz BMI 43.1 BP 148/74 H Blood Pressure Location Rt brachial Position Sitting Pulse 82 Pulse Source Pulse Oximeter Intake Visit Reasons: T2DM Intake Note: Patient presents today to re-establish treatment for Type 2 Diabetes Mellitus: Last Diabetic eye exam was on: 07/31/2024, Getting monthly Eye Shots Last Podiatry exam was on: Patient does not see a Sole Dyer Most recent HbA1c: 8.6%, 09/21/2024 Random Glucose- 170 mg/dL, Today Supervisory Clerk Required: Yes Supervisory Clerk Language: Medical Claims Assistant Services: Supervisory Clerk Present Supervisory Clerk Name: RAYSHAWN Hooper/ANDRY PERDUE Accompanied by: Self / Same As Patient Allergies seasonal Allergy (Intermediate, Uncoded 09/21/24 13:13) cough Medication List - Last Reconciled 09/21/24 by Breanna Walters NP acetaminophen (Tylenol Extra Strength) 500 mg PO Q6H PRN albuterol sulfate 90 mcg/actuation 2 puffs inhalation Q6H PRN blood sugar diagnostic (OneTouch Verio test strips) As directed test 4 times a day blood-glucose meter (OneTouch Verio Flex Meter) As directed checks 4 times a day bolus insulin pump, 200 unit (CeQur Simplicity) calcium carbonate-vitamin D3 600 mg-10 mcg (400 unit) 1 tab PO Q12H cetirizine 0.24% 1 drp ophthalmic (eye) BID 5 days cholecalciferol (vitamin D3) 125 mcg PO DAILY codeine-guaifenesin 10-100 mg/5 mL 10 mL PO Q6H PRN CPAP (CPAP Machine/Device) As directed diphenhydramine HCl 50 mg PO Q8H PRN escitalopram oxalate 20 mg PO DAILY gabapentin 0 mg PO insulin glargine (Lantus Solostar U-100 Insulin) 24 units (0.24 mL) subcut DAILY insulin lispro (Humalog U-100 Insulin) 8 UNITS (4 CLICKS) via CeQur device subcutaneously 3 times a day BEFORE MEALS 30 days irbesartan 75 mg PO DAILY Lantus Solostar U-100 Insulin (insulin glargine) 24 units (0.24 mL) subcut DAILY NS meclizine 25 mg PO DAILY PRN melatonin 10 mg PO BEDTIME polyethylene glycol 3350 17 grams PO DAILY prednisone 20 mg PO DAILY 4 days rosuvastatin 40 mg PO DAILY sennosides-docusate sodium 8.6-50 mg (Senna Plus) 1 tab PO BEDTIME tirzepatide (Mounjaro) 5 mg (0.5 mL) subcut QWEEK 30 days tirzepatide (Mounjaro) 2.5 mg (0.5 mL) subcut QWEEK 4 weeks vitamin A palmitate 10,000 units PO DAILY HPI Comments Details: Patient is 74-year-old female with DM type 2 diagnosed 1993 who presents for management of diabetes. She was last seen by Dr. Mohamud 01/21/2024 8.6%, 09/21/2024 hemoglobin A1c 01/21/24 9.3% A1c several years ago was 6.6 when she was using the Cequr device (insulin patch pump). She has not been using this and would like to be retrained as it was helping her to be consistent with her insulin. Past medical history:Dm2, HTN, HLD, gastric sleeve 02/15/19 Previous medication: Synjardy XR 25/1,000not taking because can't tolerate nausea.Intolerant of regular metformin due to diarrhea Diabetes medications: Lantus 24 units Humalog 6 units Ac tid by injection Mounjaro 2.5 weekly was started in May and has not noticed much difference in her sugars Freestyle average glucose: 225 14 day continuous glucose monitor report reviewed Glucose Managment indicator 8.7 % Days with CGM data [ ] % TIme in ranges: 36 % very high (above 250) 30 % high ?(181-250) 34 % in range ?(70-180] 0 % low (69-55) 0 % ?very low (below 54) 30.5 Standard Deviation Interpretation [ significant postprandial elevations starting with after breakfast, midnight readings start with the an average of 250 and drip drift down to about a 180] Positive Retinopathy: Last diabetic eye exam; 08/23 getting anti-VGEF therapy she has a follow up appointment with opth scheduled No neuropathy: Symptoms reported: denies numbness, tingling, cramping in lower extremities Podiatry: Does not see Has nephropathy followed by Nephrology Dr. Olivares at [facility] [place] [facility] [place] microalbumin Hypoglycemia: denies Hyperglycemia: + urinary frequency, + nocturia, denies polydypsia Diet has not been balanced she has a history of sleeve in 2019 Exercise: has not been walking. 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 PFSH Medical History Panic attack Anxiety Obesity due to excess calories Asthma REY (obstructive sleep apnea) Morbid obesity Vitamin D deficiency Obesity Dyslipidemia Hypertension Diabetic polyneuropathy associated with type 2 diabetes mellitus Diabetes type 2, uncontrolled Surgical History Abdominal pain History of carpal tunnel release S/P trigger finger release H/O foot surgery History of dilatation and curettage History of sleeve gastrectomy History of esophagogastroduodenoscopy (EGD) History of eyelid surgery Hx of tubal ligation Hx of colonoscopy Family History Father Type II diabetes mellitus Obesity Mother HTN (hypertension) Brother Cancer Social History Household Members: Spouse Housing: Apartment Do you presently have visiting nurse or other home services: Yes Alcohol intake: never Patient Tobacco Use Status: Former Tobacco user Tobacco use type: Cigarette e-Cigarette/Vaping Use: Never Used service: No Current occupational status: unemployed Current occupation: rt handed Physical Exam Vital Signs: Last Vital Signs Pulse 82 09/21/24 13:10 BP 148/74 H 09/21/24 13:10 BMI result Body Mass Index 43.1 Const Other: Absence of Cushingoid features. Absence of acromegalic features. Neck exam reveals nl size thyroid about 15 gms. No thyroid nodules palpable. No carotid bruits present. Lungs CTA. Heart S1 S2, Reg R/R. No M/R G. Skin exam reveals absence of vitiligo or acanthosis nigricans. No edema Visual exam of foot performed. No ulcerations or open lesions. No inter digit maceration or fissuring. No onychomycosis, no callouses. Sensation intact to monofilament exam. Vibratory sensation is normal with 128 Hz tuning fork. Skin dry throughout be Results AMB Hemoglobin A1c AMB Hemoglobin A1c 8.6 % Last Edit by RAYSHAWN Hooper on 09/21/24 13:33 Results Reviewed Results Reviewed: Laboratory Last Values Glucose (Clinic) 170 mg/dL (60-115) H 09/21/24 13:18 Hgb A1c (Clinic) 8.6 % (4.0-6.0) H 09/21/24 13:25 Assessment & Plan Assessment & Plan (1) Diabetes: Code(s): E11.9 - Type 2 diabetes mellitus without complications Category: Medical Plan: 74-year-old diabetic with neuropathy, nephropathy with preserved renal function followed by Nephrology and retinopathy receiving injection with recent A1c of 8.6 % 09/21/2024. We will re-initiate Cequr at 8 units per meal- 4 clicks. She will be retrained by the Tania Cage CDE. We will see her back in 6 weeks to re-evaluate sensor and to make determination if we can increase Mounjaro or adjust insulin. Nephr ology recommended SGLT2 inhibitor as a possible treatment. We will escalate Mounjaro 1st to furthur tret obesity. Continue same dose of Lantus Increase Mounjaro to 5 mg all GLP 1 agonist side effects reviewed. rare pancreatitis, nausea vomiting diarrhea constipation headache, contraindicated a family history of MEN1 or medullary thyroid cancer which there was none in the family history. The patient had an opportunity to ask questions regarding treatment plan. The patient expressed understanding and agreement with the above treatment plan. The patient is aware they should contact our office by phone for worsening glucose readings or for any low blood sugars which may warrant a change in diabetes medication. Compliance is encouraged with medications and any followup testing/consults which may have been ordered. Continue self-care with feet. Recommended to purchased gold araya foot cream to alleviate dryness. Orders: Orders AMB Hemoglobin A1c Today E11.9 - Type 2 diabetes mellitus without complications AMB Glucose Monitoring Today E11.9 - Type 2 diabetes mellitus without complications Medications: New tirzepatide (Mounjaro) 5 mg (0.5 mL) subcut QWEEK 30 days 2.5 mL 11RF Changed From insulin lispro (Humalog U-100 Insulin) Use up to 35 units today via CeQur device subcutaneously 3 times a day; subcutaneously 3 times a day; 30 mL 3RF To insulin lispro (Humalog U-100 Insulin) 8 UNITS (4 CLICKS) via CeQur device subcutaneously 3 times a day BEFORE MEALS 30 days 20 mL 11RF Refilled insulin lispro (Humalog U-100 Insulin) 8 UNITS (4 CLICKS) via CeQur device subcutaneously 3 times a day BEFORE MEALS 30 days 20 mL 11RF On Hold tirzepatide (Mounjaro) Hold Comment: Dose Change 2.5 mg (0.5 mL) subcut QWEEK 4 weeks 2 mL 1RF E11.9 - Type 2 diabetes mellitus without complications Patient Instructions: The patient was counseled to always carry a source of sugar and on the rule of 15's: Take 3 glucose tablets and repeat again in 15 minutes if blood sugar is not in normal range. Continue to repeat every 15 minutes until blood sugar is normal. Check your feet daily looking for any signs of infection, ulceration and seek medical attention if this occurs. Break in shoes gradually and do not wear open-toed shoes or walk barefooted. The patient was counseled to achieve a target A1C of 7% (154 avg). Fasting blood sugars should be 90-130 in the morning and less than 180 two hours after meals. Reviewed the relationship between poor diabetic control and the development of complications. Coding Level of Care Code Est Pt Level 4 (04234) Diagnoses Diabetes E11.9 Time Spent (min) 30 Comment Time spent reviewing labs/provider notes, glucose,sensor reports, face to face, chart doc
[2024-09-21 13:10] VITALS: BP 148/74; PULSE 82; BMI 43.1
[2024-09-21 13:22] LABS: Glucose, Whole Blood 170 mg/dL (60-115)
--- OUTSIDE RECORDS SUMMARY | 2024-09-21 14:30 | XMS_ITS ---
Author Name Maribel Vann NP Address [address] [place] [address] Phone [phone] [facility] Care Team Providers Care Design Technology Professor Name Role Phone Maribel Vann Unavailable [phone] [facility] Unavailable [phone] [place], [facility] Unavailable [phone] [place] [place] Unavailable [phone] Unavailable Unavailable [phone] Unavailable Unavailable [phone] [employer] Unavailable [phone] Unavailable Unavailable Unavailable Pedro Mohamud Unavailable [phone] Radha Bran Unavailable Reason for Referral Not Available Allergies, adverse reactions, alerts No known allergies History of medication use Medication Class Instructions Start Date End Date Fluocinolone Acetonide Body 0.01 % Oil APPLY BOTTLE TOPICALLY TO THE AFFECTED AREA IN THE MORNING 2022-08-13 No Data Available Trulicity 1.5 mg/0.5ML Solution Pen-injector Subcutaneous ADMINISTER 1.5 MG UNDER THE SKIN 1 TIME EVERY WEEK 2022-08-13 No Data Available B-D KURTIS 2ND GEN PEN NDL [id number] USE TO INJECT FOUR TIMES DAILY 2022-08-28 No Data Available Diclofenac Sodium 1 % Gel No Data Available 2022-08-28 No Data Available Insulin Lispro (1 Unit Dial) 100 UNIT/ML Solution Pen-injector Subcutaneous ADMINISTER 6 UNITS UNDER THE SKIN THREE TIMES DAILY 2022-08-28 No Data Available Insulin Glargine Solostar 10 0 UNIT/ML Solution Pen-injector Subcutaneous INJECT 24 UNITS UNDER THE SKIN AT BEDTIME 2022-08-28 No Data Available Escitalopram Oxalate 20 mg Tab 1 tablet orally daily No Data Available Omeprazole 40 mg Cap delayed rel 1 tablet daily 2022-10-10 No Data Available Simethicone Ultra Strength 1 80 mg Cap TAKE 1 CAPSULE BY MOUTH THREE TIMES DAILY WITH MEALS 2022-10-10 No Data Available Gabapentin 100 mg Cap 1 capsule orally d aily at bedtime 2022-10-10 No Data Available Rosuvastatin Calcium 40 mg Tab TAKE 1 TA BLET BY MOUTH DAILY 2022-11-19 No Data Available Meclizine 25 mg Tab TAKE 1 TABLET BY SUMAYA TH THREE TIMES DAILY NEEDED FOR DIZZINESS/NAUSEA 2022-12-02 No Data Available OxyCONTIN 10 mg Tab ER 12hr Abuse-Deterrent TAKE 1 TABLET BY MOUTH TWICE A DAY 2022-12-29 No Data Available MELATONIN 5MG TABLETS TAKE 2 TABLETS BY MOUTH AT BEDTIME 2023-01-09 2023-07-15 Senna 8.6 mg Tab TAKE 2 TABLETS BY MO UTH AT BEDTIME 2023-01-09 No Data Available Enoxaparin Sodium 40 mg/0.4M L Solution Prefilled Syringe No Data Available 2023-01-13 2023-04-09 FeroSul 325 (65 Fe) MG Tab TAKE 1 TABLET BY MOUTH IN THE MORNING 2023-01-20 No Data Available Acetaminophen Extra Strength 500 mg Tab TAKE 1 TABLET BY MOUTH EVERY 6 HOURS NEEDED FOR FEVER OR PAIN 2023-04-12 No Data Available traMADol 50 mg Tab No Data Available 2023-06-03 No D aries Available [employer] CloudTouch Verio Flex System w/Device Kit USE TO CHECK BLOOD GLUCOSE FOUR TIMES DAILY DIRECTED 2023-06-10 No Data Available OneTouch Verio Strip USE DIRECTED FOU R TIMES DAILY 2023-06-10 No Data Available Acetaminophen 500 mg Tab 2 tablets orall y 3 times a day for pain 2023-09-18 No Data Available Qvar RediHaler 80 MCG/ACT Aerosol Breath Activated Inhalation 2 puffs inhaled orally 2 times per day. Please rinse mouth after each use. 2023-10-02 No Data Available Triamcinolone Acetonide 55 MCG/ACT Aerosol Nasal 1 spray intranasally daily in each nostril 2024-04-21 No Data Available FreeStyle Walter 2 [place] Device 1 q 2 weeks 2024-04-21 No Data Available Fexofenadine 180 mg Tab 1 tablet orally one time a day 2024-04-21 No Data Available [place] Nasal [place] 0.65 % Solution Nasal 2 sprays intranasally every 2 hours in each nostril as needed 2024-04-21 No Data Available hydrOXYzine Pamoate 25 mg Cap 1 capsule orally every 8 hours as needed anxiety 2023-10-27 No Data Available Mounjaro 2.5 mg/0.5ML Soluti on Pen-injector ADMINISTER 2.5 MG UNDER THE SKIN EVERY WEEK FOR 4 WEEKS 2023-11-04 No Data Available Irbesartan 75 mg Tab Take 1 tablet by [facility] daily 2023-12-04 No Data Available CALCIUM 600D (400U) TABLETS TAKE 1 TABLE T BY MOUTH EVERY 12 HOURS 2023-09-18 No Data Available Amoxicillin 500 mg Cap TAKE 1 CAPSULE BY MOUTH EVERY 8 HOURS FOR 7 DAYS 2024-02-12 No Data Available Triamcinolone Acetonide 55 MCG/ACT Aerosol Nasal 1 spray intranasally daily in each nostril 2024-04-21 No Data Available FreeStyle Walter 14 Day Reade r Device Use for CGM 2024-04-27 No Data Available diphenhydrAMINE 50 mg Cap TAKE 1 CAPSULE BY MOUTH EVERY 8 HOURS NEEDED FOR ITCHING 2024-04-30 No Data Available predniSONE 20 mg Tab TAKE 1 TABLET BY [facility] DAILY FOR 4 DAYS 2024-04-30 No Data Available Problem List Problem Status Onset Date Resolved Date Iron deficiency anemia Active 2023-02-06 N/A Obstructive sleep apnea Active 2023-02-06 N/A Closed 2-part nondisplaced f racture of surgical neck of left humerus with routine healing Active 2023-01-09 N/A Urinary incontinence Active 2023-04-09 N/A Urinary incontinence Active 2023-02-06 N/A Hypertension Active 2023-02-06 N/A Status post fallDifficulty w alkingHx of fracture of lower legHistory of fracture of left shoulder Active 2023-04-09 N/A MDD (major depressive disord er), recurrent episode, mild Active 2023-04-09 N/A Hx: bad fall Active 2023-07-15 N/A [facility] Active 2023-09-18 N/A Seronegative rheumatoid arthritis Active 2023-08 N/A Chronic left-sided headache Active 2024-04-21 N/A UTI (urinary tract infection) Resolved 2023-09-09 2024-04-21 Asthma Active 2023-02-06 N/A Morbid (severe) obesity due to excess calories Active 2023-02-03 N/A Encounter for other specifie d aftercare, for Allergic reaction to plant, excluding food Active 2024-05-03 N/A 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, without long-term current use of insulin Active 2023-02-06 N/A Other problems related to [place] facilities and other health care Active 2024-05-03 N/A History of recent hospitalization for Influenza Active 2024-08-26 N/A Encounters Encounters Type Facility Date of Service Diagnosis/Co mplaint No Data Available [facility] [place] Morbid (severe) obesity due to excess caloriesBody mass index (BMI) 40.0-44.9, adultType 2 diabetes w unsp diabetic retinopathy w macular edemaMajor depressive disorder, recurrent, mildIron deficiency anemia, unspecifiedUnspecified urinary incontinenceUnspecified asthma, uncomplicatedObstructive sleep apnea (adult) (pediatric)2-part nondisp fx of surg nk of melecio luna, 7thDEssential (primary) hypertensionHistory of fallingDifficulty in walking, not elsewhere classified No Data Available [facility]2023 No Data Available [facility] No Data Available [facility] No Data Available [facility] No Data Available [facility] No Data Available [facility] Estab. patient 20-29min; 1 stable chronic or 2 minor; add add modifier 95 for video, modifier 93 for phone [facility] 05/06/2023 Type 2 diabetes w unsp diabe tic retinopathy w macular edemaMorbid (severe) obesity due to excess caloriesBody mass index (BMI) 40.0-44.9, adultMajor depressive disorder, recurrent, mildIron deficiency anemia, unspecifiedUnspecified urinary incontinenceUnspecified asthma, uncomplicatedObstructive sleep apnea (adult) (pediatric)2-part nondisp fx of surg nk of l humer, 7thDEssential (primary) hypertensionHistory of fallingDifficulty in walking, not elsewhere classified Estab. patient 20-29min; 1 stable chronic or 2 minor; add add modifier 95 for video, modifier 93 for phone [facility] 05[place]06[place]20[place] Estab. patient 20-29min; 1 stable chronic or 2 minor; add add modifier 95 for video, modifier 93 for phone [facility] Estab. patient 20-29min; 1 stable chronic or 2 minor; add add modifier 95 for video, modifier 93 for phone [facility]2023 No Data Available [facility]20[place] History of fallingDifficulty in walking, not elsewhere classified No Data Available [facility] No Data Available [facility] History of fallingDifficulty in walking, not elsewhere classifiedPersonal history of (healed) traumatic fracture No Data Available [facility] No Data Available [facility] No Data Available [facility] No Data Available [facility] Difficulty in walking, not elsewhere classifiedHistory of fallingPersonal history of (healed) traumatic fracture No Data Available [facility] Estab. patient 30-39min; chronic exacerbation, 2 stable chronic or 1 acute illness add add modifier 95 for video, (do not use for phone, instead use [id number]) [facility] Morbid (severe) obesity due to excess caloriesBariatric surgery statusIron deficiency anemia, unspecifiedType 2 diabetes w unsp diabetic retinopathy w macular edemaUnspecified urinary incontinenceUnspecified asthma, uncomplicatedObstructive sleep apnea (adult) (pediatric)2-part nondisp fx of surg nk of l humer, 7thDEssential (primary) hypertensionHistory of fallingDifficulty in walking, not elsewhere classifiedPersonal history of (healed) traumatic fractureBody mass index (BMI) 40.0-44.9, adult Estab. patient 30-39min; chronic exacerbation, 2 stable chronic or 1 acute illness add add modifier 95 for video, (do not use for phone, instead use [id number]) [facility] Estab. patient 30-39min; chronic exacerbation, 2 stable chronic or 1 acute illness add add modifier 95 for video, (do not use for phone, instead use [id number]) [facility] Estab. patient 30-39min; chronic exacerbation, 2 stable chronic or 1 acute illness add add modifier 95 for video, (do not use for phone, instead use [id number]) [facility] Estab. patient 30-39min; chronic exacerbation, 2 stable chronic or 1 acute illness add add modifier 95 for video, (do not use for phone, instead use [id number]) [facility] No Data Available [facility] 08[place]/2023 Morbid (severe) obesity due to excess caloriesBariatric surgery statusUnspecified asthma, uncomplicatedHistory of fallingDifficulty in walking, not elsewhere classifiedPersonal history of (healed) traumatic fracture No Data Available [facility] 08/[place]/2023 No Data Available [facility]/2023 Urinary tract infection, sit e not specified No Data Available [facility]2023 Urinary tract infection, sit e not specifiedHistory of fallingDifficulty in walking, not elsewhere classifiedPersonal history of (healed) traumatic fracture No Data Available [facility]2023 Estab. patient 30-39min; chronic exacerbation, 2 stable chronic or 1 acute illness add add modifier 95 for video, (do not use for phone, instead use [id number]) [facility]18[place]2023 Urinary tract infection, sit e not specifiedOther problems related to medical facilities and other health careHistory of fallingDifficulty in walking, not elsewhere classifiedPersonal history of (healed) traumatic fractureMorbid (severe) obesity due to excess caloriesBariatric surgery statusIron deficiency anemia, unspecifiedType 2 diabetes w unsp diabetic retinopathy w macular edemaUnspecified urinary incontinenceUnspecified asthma, uncomplicatedObstructive sleep apnea (adult) (pediatric)2-part nondisp fx of surg nk jacoby luna, 7thDEssential (primary) hypertensionMajor depressive disorder, recurrent, mildRheumatoid arthritis without rheumatoid factor, unspecified site Estab. patient 30-39min; chronic exacerbation, 2 stable chronic or 1 acute illness add add modifier 95 for video, (do not use for phone, instead use 52292-09) [facility] Estab. patient 30-39min; chronic exacerbation, 2 stable chronic or 1 acute illness add add modifier 95 for video, (do not use for phone, instead use 33734-95) [facility] Estab. patient 30-39min; chronic exacerbation, 2 stable chronic or 1 acute illness add add modifier 95 for video, (do not use for phone, instead use 76160-80) [facility] Estab. patient 30-39min; chronic exacerbation, 2 stable chronic or 1 acute illness add add modifier 95 for video, (do not use for phone, instead use 83205-96) [facility] Estab. patient 30-39min; chronic exacerbation, 2 stable chronic or 1 acute illness add add modifier 95 for video, (do not use for phone, instead use 18270-74) [facility] Estab. patient 30-39min; chronic exacerbation, 2 stable chronic or 1 acute illness add add modifier 95 for video, (do not use for phone, instead use 79321-63) [facility] Estab. patient 30-39min; chronic exacerbation, 2 stable chronic or 1 acute illness add add modifier 95 for video, (do not use for phone, instead use 76898-67) [facility] Estab. patient 30-39min; chronic exacerbation, 2 stable chronic or 1 acute illness add add modifier 95 for video, (do not use for phone, instead use 42548-62) [facility] No Data Available [facility] Morbid (severe) obesity due to excess caloriesBariatric surgery statusType 2 diabetes w unsp diabetic retinopathy w macular edemaUnspecified urinary incontinenceUnspecified asthma, uncomplicatedObstructive sleep apnea (adult) (pediatric)Essential (primary) hypertensionBody mass index (BMI) 40.0-44.9, adultMajor depressive disorder, recurrent, mildOther problems related to medical facilities and other health careHeadache, unspecifiedOther chronic pain No Data Available [facility] No Data Available [facility] No Data Available [facility] No Data Available [facility] No Data Available [facility] No Data Available [facility] No Data Available [facility]20[place] Type 2 diabetes w unsp diabe tic retinopathy w macular edemaAllergic contact dermatitis due to plants, except foodEncounter for other specified aftercareOther problems related to medical facilities and other health careLong term (current) use of insulin No Data Available [facility] No Data Available [facility] Flu due to unidentified influenza virus w oth resp manifestPersons encountering health services in other specified circumstancesOther problems related to medical facilities and other health care No Data Available [facility] No Data Available [facility] Vital Signs Date of Collection Vitals 2023-04-09 10:34:18 Height - 156.21 cmWe ight - 104.33 kgBody Mass Index (BMI) - 42.75 kg/m2 2023-06-16 12:23:31 Height - 156.21 cmWe ight - 104.33 kgBody Mass Index (BMI) - 42.75 kg/m2 2023-07-15 08:14:47 Height - 157.48 cmWe ight - 104.33 kgBody Mass Index (BMI) - 42.07 kg/m2 2023-09-18 06:55:25 Height - 157.48 cmWe ight - 104.33 kgBody Mass Index (BMI) - 42.07 kg/m2 2024-04-21 09:19:41 Height - 157.48 cmWe ight - 107.05 kgBody Mass Index (BMI) - 43.16 kg/m2BP Diastolic - 74.0 mm[Hg]BP Systolic - 122.0 mm[Hg]Pain Scale - 5.0 {score} Social History Social History Social History Observation Description Effec tive Time Current Smoking Status Former smoker 2024-09-01 2 Sex Female History of Procedures Procedures Service Procedure code Service date Servicing provider Phone# No Data Available [id number] 2023-04-09 No Data Available No Data Available Medication List Documented (1159F) 1159F 2023-04-09 No Data Available No Data Carli ilable Medication Review by prescribing provider or pharmacist documented (1160F) 1160F 2023-04-09 No Data Available No Data Carli ilable Advance Care Directive Advance care planning discussion documented in the medical record (1158F) 1158F 2023-04-09 No Data Available No Data Availa ble BMI obtained (3008F) 3008F 2023-04-09 No Data Availab le No Data Available Advance care planning discussed and documented ? advance care plan or surrogate decision-maker was documented in the medical record. (1123F) 1123F 2023-04-09 No Data Available No Data Availa ble Pain Assessment - Pain Documented (1125F) 1125F 2023-04-09 No Data Available No Data Availa ble Estab. patient 20-29min; 1 stable chronic or 2 minor; add add modifier 95 for video, modifier 93 for phone [id number] 2023-05-06 No Data Available No Data Availa ble Medications prescribed in hospital were reviewed and reconciled against what they were taking prior to admission during today's visit. (1111F) 1111F 2023-05-06 No Data Available No Data Availa ble Advance care planning discussed and documented ? advance care plan or surrogate decision-maker was documented in the medical record. (1123F) 1123F 2023-05-06 No Data Available No Data Availa ble Medication List Documented (1159F) 1159F 2023-05-06 No Data Available No Data Carli ilable No Data Available [id number] 2023-06-15 No Data Available No Data Available Medication List Documented (1159F) 1159F 2023-06-15 No Data Available No Data Carli ilable No Data Available 2023-06-16 No Data Available No Data Available Medication List Documented (1159F) 1159F 2023-06-16 No Data Available No Data Carli ilable Pain Assessment - Pain Documented (1125F) 1125F 2023-06-16 No Data Available No Data Availa ble BMI obtained (3008F) 3008F 2023-06-16 No Data Availab le No Data Available No Data Available 2023-07-08 No Data Available No Data Available Medication List Documented (1159F) 1159F 2023-07-08 No Data Available No Data Carli ilable Estab. patient 30-39min; chronic exacerbation, 2 stable chronic or 1 acute illness add add modifier 95 for video, (do not use for phone, instead use [id number]) [id number] 2023-07-15 No Data Available No Data Availa ble Medication List Documented (1159F) 1159F 2023-07-15 No Data Available No Data Carli ilable Medication Review by prescribing provider or pharmacist documented (1160F) 1160F 2023-07-15 No Data Available No Data Carli ilable BMI obtained (3008F) 3008F 2023-07-15 No Data Availab le No Data Available Pain Assessment - Pain Documented (1125F) 1125F 2023-07-15 No Data Available No Data Availa ble No Data Available 2023-08-14 No Data Available No Data Available Medication List Documented (1159F) 1159F 2023-08-14 No Data Available No Data Carli ilable No Data Available [id number] 2023-09-09 No Data Available No Data Available No Data Available 2023-09-10 No Data Available No Data Available Medication List Documented (1159F) 1159F 2023-09-10 No Data Available No Data Carli ilable Estab. patient 30-39min; chronic exacerbation, 2 stable chronic or 1 acute illness add add modifier 95 for video, (do not use for phone, instead use [id number]) 21387 2023-09-18 No Data Available No Data Availa ble Medication List Documented (1159F) 1159F 2023-09-18 No Data Available No Data Carli ilable Medication Review by prescribing provider or pharmacist documented (1160F) 1160F 2023-09-18 No Data Available No Data Carli ilable Pain Assessment - NO pain documented (1126F) 1126F 2023-09-18 No Data Available No Data Availa ble BMI obtained (3008F) 3008F 2023-09-18 No Data Availab le No Data Available Advance Care Directive Advance care planning discussion documented in the medical record (1158F) 1158F 2023-09-18 No Data Available No Data Availa ble Advance care planning discussed and documented ? advance care plan or surrogate decision-maker was documented in the medical record. (1123F) 1123F 2023-09-18 No Data Available No Data Availa ble Pain Assessment - Pain Documented (1125F) 1125F 2023-09-18 No Data Available No Data Availa ble Functional Status Assessed (1170F) 1170F 2023-09-18 No Data Available No Data Avail able No Data Available [id number] 2024-04-21 No Data Available No Data Available SBP < 130 (3074F) 3074F 2024-04-21 No Data Available No Data Available DBP <80 (3078F) 3078F 2024-04-21 No Data Available No Data Available Pain Assessment - Pain Documented (1125F) 1125F 2024-04-21 No Data Available No Data Availa ble Functional Status Assessed (1170F) 1170F 2024-04-21 No Data Available No Data Avail able Medication List Documented (1159F) 1159F 2024-04-21 No Data Available No Data Carli ilable BMI obtained (3008F) 3008F 2024-04-21 No Data Availab le No Data Available No Data Available [id number] 2024-05-03 No Data Available No Data Available Medication List Documented (1159F) 1159F 2024-05-03 No Data Available No Data Carli ilable No Data Available [id number] 2024-08-26 No Data Available No Data Available Medications prescribed in hospital were reviewed and reconciled against what they were taking prior to admission during today's visit. (1111F) 1111F 2024-08-26 No Data Available No Data Availa ble Medication List Documented (1159F) 1159F 2024-08-26 No Data Available No Data Carli ilable Functional Status Functional Category Effective Dates Falls in last 6 Months: Yes 2023-02-03 ADLsDressing - Needs assista nceBathing - Needs assistanceToileting - Needs assistanceTransfers - Needs assistanceEating - IndependentiADLsShopping - Needs assistanceMedications - Needs assistanceHousekeeping - Needs assistanceCooking - Needs assistanceFalls in last 6 months - Yes 2023-09-20 Mental Status Status Date Cognition Status: Oriented to Person, Pl jose and Time 2023-02-06 Assessments Date of Service Assessments 2023-04-09 10:34:18 Morbid (severe) obes ity due to excess caloriesIron deficiency anemia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, without long-term current use of insulinUrinary incontinenceAsthmaObstructive sleep apneaClosed 2-part nondisplaced fracture of surgical neck of left humerus with routine healingHypertensionStatus post fallDifficulty walkingUrinary incontinenceMDD (major depressive disorder), recurrent episode, mild 2023-05-06 08:06:21 Patient Education to avoid future hospitalization: Call [facility] if symptoms of illness develop.Morbid (severe) obesity due to excess caloriesIron deficiency anemia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, without long-term current use of insulinUrinary incontinenceAsthmaObstructive sleep apneaClosed 2-part nondisplaced fracture of surgical neck of left humerus with routine healingHypertensionStatus post fallDifficulty walkingUrinary incontinenceMDD (major depressive disorder), recurrent episode, mild 2023-06-15 13:39:58 Status post fallDiff iculty walking 2023-06-16 12:23:31 Status post fallDiff iculty walkingHx of fracture of lower legHistory of fracture of left shoulder 2023-07-08 07:44:11 Status post fallDiff iculty walkingHx of fracture of lower legHistory of fracture of left shoulder 2023-07-15 08:14:47 Morbid (severe) obes ity due to excess caloriesIron deficiency anemia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, without long-term current use of insulinUrinary incontinenceAsthmaObstructive sleep apneaClosed 2-part nondisplaced fracture of surgical neck of left humerus with routine healingHypertensionStatus post fallDifficulty walkingHx of fracture of lower legHistory of fracture of left shoulderUrinary incontinenceMDD (major depressive disorder), recurrent episode, mildHx: bad fall 2023-08-14 12:38:06 Morbid (severe) obes ity due to excess caloriesAsthmaStatus post fallDifficulty walkingHx of fracture of lower legHistory of fracture of left shoulder 2023-09-09 13:16:02 Follow up plan for jennifer mora symptoms: 7:38 minutesUTI (urinary tract infection) 2023-09-10 10:02:40 UTI (urinary tract i nfection)Status post fallDifficulty walkingHx of fracture of lower legHistory of fracture of left shoulder 2023-09-18 06:55:25 UTI (urinary tract i nfection)Other problems related to medical facilities and other health careStatus post fallDifficulty walkingHx of fracture of lower legHistory of fracture of left shoulderMorbid (severe) obesity due to excess caloriesIron deficiency anemia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, without long-term current use of insulinUrinary incontinenceAsthmaObstructive sleep apneaClosed 2-part nondisplaced fracture of surgical neck of left humerus with routine healingHypertensionStatus post fallDifficulty walkingHx of fracture of lower legHistory of fracture of left shoulderUrinary incontinenceMDD (major depressive disorder), recurrent episode, mildHx: bad fallUTI (urinary tract infection)Other problems related to medical facilities and other health careSeronegative rheumatoid arthritis 2024-04-21 09:19:41 Morbid (severe) obes ity due to excess calories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, without long-term current use of insulinUrinary incontinenceAsthmaObstructive sleep apneaHypertensionUrinary incontinenceMDD (major depressive disorder), recurrent episode, mildOther problems related to medical facilities and other health careChronic left-sided headache 2024-05-03 06:17:15 Type 2 diabetes long itus with both eyes affected by retinopathy and macular edema, without long-term current use of insulinEncounter for other specified aftercare, for Allergic reaction to plant, excluding foodOther problems related to medical facilities and other health care 2024-08-26 06:50:02 Patient Education to avoid future hospitalization: Call [facility] if symptoms of illness develop.History of recent hospitalization for InfluenzaOther problems related to medical facilities and other health care Plan of Care Date of Service Plans 2023-04-09 10:34:18 Medication Review by prescribing provider or pharmacist documented (1160F)Medication List Documented (1159F)Functional Status Assessed (1170F)Advance Care Directive Advance care planning discussion documented in the medical record (1158F)BMI obtained (3008F)Televideo new patient,40-59min; chronic exacerbation, 2 stable chronic or 1 acute illness add modifier 95Advance care planning discussed and documented ? advance care plan or surrogate decision-maker was documented in the medical record. (1123F)Pain Assessment - Pain Documented (1125F)Continue to see PCP. Follow-up with Tran as needed for any acute or disease education needs that may arise.BMI: 42.07Ed importance of healthy weightEd re diet and activityS/p bariatric surgery 4-5 years ago, taking FE daily and ferritinRandom glucose 150-200's routinelyhas insulin pump and uses injections lispro/lantuswears glassesenc drink water or zero calorie drinks, avoid sodas and sweetscontinue lantus 30 units + trulicity + humalog 8 units TID AC meals and FU with office helper clerical in February,Wears rafaela paduses inhaler Flovent BIDHas CPAP using nightlyContinue lovenox as directedAdvancing home PTencouraged UE activity as toleratedHas not been taking BP medication since surgery 2 months ago on broken footApril 2022 had a bad fall on steps at entrance to home. Fractured L foot, L?knee, L shoulderStill unable to walkUsing wheelchairDeclines productsEscitalopramWimoreno think about whether she wants a therapist 2023-05-06 08:06:21 Discharge medication s reconciled with current medication listTelevideo 20-29min; 1 stable chronic or 2 minor; add modifier 95Advance care planning discussed and documented ? advance care plan or surrogate decision-maker was documented in the medical record. (1123F)Advance care planning discussed and documented in the medical record ? beneficiary/patient did not wish to or was unable to provide an advance care plan or name a surrogate decision-maker. (1124F)Discharge medications reconciled with current medication listTelevideo 20-29min; 1 stable chronic or 2 minor; add modifier 95Advance care planning discussed and documented ? advance care plan or surrogate decision-maker was documented in the medical record. (1123F)PCP visit is planned for: PCP visit is planned for:BMI: 42.07Ed importance of healthy weightEd re diet and activityS/p bariatric surgery 4-5 years ago, taking FE daily and ferritinRandom glucose 150-200's routinelyhas insulin pump and uses injections lispro/lantuswears glassesenc drink water or zero calorie drinks, avoid sodas and sweetscontinue lantus 30 units + trulicity + humalog 8 units TID AC meals and FU with office helper clerical in February,Wears rafaela padNeeds chux pads, XL pull-ups, gloves XLuses inhaler Flovent BIDHas CPAP using nightlyContinue lovenox as directedAdvancing home PTencouraged UE activity as toleratedHas not been taking BP medication since surgery 2 months ago on broken footApril 2022 had a bad fall on steps at entrance to home. Fractured L foot, L?knee, L shoulderStill unable to walkUsing wheelchairNow having PT at [facility] Jovanny think about whether she wants a therapist 2023-06-15 13:39:58 Phone (patient, pare nt, or guardian); 5-10 minutes of medical discussion (no modifier 95)Continue to see PCP. Follow-up with Tran as needed for any acute or disease education needs that may arise 23/03.November 2022 had a bad fall on steps at entrance to home. Fractured L foot, L?knee, L shoulderStill unable to walkUsing hbrfnnvuby12/16/2023er son, can only walk very short distances w a walker, otherwise uses WC. In home may use walker or WC.Pt requesting electric WC.Cont using caution w walker or WC, will FU re possible need for more PT. 2023-06-16 12:23:31 Phone (patient, pare nt, or guardian); 5-10 minutes of medical discussion (no modifier 95)Continue to see PCP. Follow-up with [facility] as needed for any acute or disease education needs that may arise 23/03.November 2022 had a bad fall on steps at entrance to home. Fractured L lower leg, L shoulderStill unable to walkUsing wheelchairNow having PT at [facility]06/15/2023er son, can only walk very short distances w a walker, otherwise uses WC. In home may use walker or WC.Pt requesting electric WC.Cont using caution w walker or WC, will FU re possible need for more PT.06/16/2023annot use self-propelled WC due to having injured left shoulder. unable to push a WC for her.In need of an electric WC or a scooter.In the home can barely get around w a walker but with pain and does not always tolerate. 2023-07-08 07:44:11 Phone (patient, pare nt, or guardian); 5-10 minutes of medical discussion (no modifier 95)Continue to see PCP. Follow-up with [facility] as needed for any acute or disease education needs that may arise 23/03.November 2022 had a bad fall on steps at entrance to home. Fractured L lower leg, L shoulderStill unable to walk07/08/2023alled pt, discussed approval of her scooter. Informed her we need to schedule home visit/eval, and we need videocall. Tablet needs a adult remedial education instructor, will send and schedule videocall for next week.Having some pain on her left knee, this is not new, Will FU w video. 2023-07-15 08:14:47 Medication Review by prescribing provider or pharmacist documented (1160F)Medication List Documented (1159F)Functional Status Assessed (1170F)Advance Care Directive Advance care planning discussion documented in the medical record (1158F)BMI obtained (3008F)Televideo 30-39min; chronic exacerbation, 2 stable chronic or 1 acute illness add modifier 95Advance care planning discussed and documented ? advance care plan or surrogate decision-maker was documented in the medical record. (1123F)Televideo 20-29min; 1 stable chronic or 2 minor; add modifier 95Pain Assessment - Pain Documented (1125F)Continue to see PCP. Follow-up with [facility] as needed for any acute or disease education needs that may arise. Continue to see PCP. Follow-up with [facility] as needed for any acute or disease education needs that may arise 23/03.BMI: 42.07Ed importance of healthy weightEd re diet and activityHad bariatric surgery circa 2019?Ed re diet, activityS/p bariatric surgery 4-5 years ago, taking FE daily and ferritinRandom glucose 150-200's routinelyhas insulin pump and uses injections lispro/lantuswears glassesenc drink water or zero calorie drinks, avoid sodas and sweetscontinue lantus 30 units + trulicity + humalog 8 units TID AC meals and FU with endocrinologistWears rafaela padNeeds chux pads, XL pull-ups, gloves XLuses inhaler Flovent BIDHas CPAP using nightlyContinue lovenox as directedAdvancing home PTencouraged UE activity as toleratedUPDATE - now taking medication, please cont complianceApril 2022 had a bad fall on steps at entrance to home. Fractured L lower leg, L shoulderStill unable to walkUsing wheelchairNow having PT at [facility]3Per son, can only walk very short distances w a walker, otherwise uses WC. In home may use walker or WC.Pt requesting electric WC.Cont using caution w walker or WC, will FU re possible need for more PT.06/16/2023annot use self-propelled WC due to having injured left shoulder. unable to push a WC for her.In need of an electric WC or a scooter.In the home can barely get around w a walker but with pain and does not always tolerate.Declines productsEscitalopramWill think about whether she wants a therapist12/04/2022Fractured left leg in 3 places and had surgery - also damaged left shoulder.Had PT on leg but not shoulder. Can refer to PT but after she returns from [place] in .Can start in October. 2023-08-14 12:38:06 Phone (patient, andrewe nt, or guardian); 5-10 minutes of medical discussion (no modifier 95)Continue to see PCP. Follow-up with [facility] as needed for any acute or disease education needs that may arise 23/03.BMI: 42.07Ed importance of healthy weightEd re diet and activityHad bariatric surgery circa 2019?Ed re diet, activitySTABLE - will talk more next timeuses inhaler Flovent BIDApril 2022 had a bad fall on steps at entrance to home. Fractured L lower leg, L shoulderStill unable to walkUsing wheelchairNow having PT at [facility]06/15/2023er son, can only walk very short distances w a walker, otherwise uses WC. In home may use walker or WC.Pt requesting electric WC.Cont using caution w walker or WC, will FU re possible need for more PT.06/16/2023annot use self-propelled WC due to having injured left shoulder. unable to push a WC for her.In need of an electric WC or a scooter.In the home can barely get around w a walker but with pain and does not always tolerate.3Called pt, discussed approval of her scooter. Informed her we need to schedule home visit/eval, and we need videocall. Tablet needs a adult remedial education instructor, will send and schedule videocall for next week.Having some pain on her left knee, this is not new, Will FU w video.08/14/2023[facility] not heard from [facility] but has not been home. Will see if they have called or if it has arrived and will let us know. 2023-09-09 13:16:02 Phone (patient, andrewe nt, or guardian); 5-10 minutes of medical discussion (no modifier 95)Continue to see PCP. Follow-up with [facility] as needed for any acute or disease education needs that may arise 23/03.09/09/23: Malodorous dark urine, Left flank painWill start nitrofurantoin.Increase water and rest.Tylenol.F/U with MAHENDRA 09/10/23. 2023-09-10 10:02:40 Phone (patient, pare nt, or guardian); 5-10 minutes of medical discussion (no modifier 95)Continue to see PCP. Follow-up with Tran as needed for any acute or disease education needs that may arise 23/03.09/09/23: Malodorous dark urine, Left flank painWill start nitrofurantoin.Increase water and rest.Tylenol.F/U with MAHENDRA 09/10/23.UPDATE 09/10/2023t has not yet gone to pharmacy picking tech prescription. Feels about the same. Education about importance of taking antibiotics stefania and also make sure you take the entire run of them. Will FU.If nausea, fever, other concerning sxs pls call CB.08/21/2023 ordered in-home eval for scooter09/10/2023Need to do videocall so need to schedule it when pt has help. She has tech savvy limitations. After videocall CN will schedule in-home eval. 2023-09-18 06:55:25 Medication Review by prescribing provider or pharmacist documented (1160F)Medication List Documented (1159F)Functional Status Assessed (1170F)Advance Care Directive Advance care planning discussion documented in the medical record (1158F)BMI obtained (3008F)Televideo 30-39min; chronic exacerbation, 2 stable chronic or 1 acute illness add modifier 95Advance care planning discussed and documented ? advance care plan or surrogate decision-maker was documented in the medical record. (1123F)Advance care planning discussed and documented in the medical record ? beneficiary/patient did not wish to or was unable to provide an advance care plan or name a surrogate decision-maker. (1124F)Pain Assessment - NO pain documented (1126F)Continue to see PCP. Follow-up with Tran as needed for any acute or disease education needs that may arise.09/09/23: Malodorous dark urine, Left flank painWill start nitrofurantoin.Increase water and rest.Tylenol.F/U with MAHENDRA 09/10/23.UPDATE 09/10/2023t has not yet gone to pharmacy picking tech prescription. Feels about the same. Education about importance of taking antibiotics stefania and also make sure you take the entire run of them. Will FU.If nausea, fever, other concerning sxs pls call CB.09/18/2023Was nto taking abx as directed, should have run out two days ago, still has 5-7 tablets left.Sxs improving. Please take BID from now on, call us if sxs dont' improve.High risk ptDM HTNMember to call for the following symptoms: Blood sugar <70/ Blood sugar >300Planned intervention: Decrease long-acting insulin Decrease short-acting insulin/ Increase long-acting insulin/ Increase short-acting insulin ... as appropriateSee each individual diagnosis for contingency plan.November 2022 had a bad fall on steps at entrance to home. Fractured L lower leg, L shoulderStill unable to walkUsing wheelchairNow having PT at [facility]3Per son, can only walk very short distances w a walker, otherwise uses WC. In home may use walker or WC.Pt requesting electric WC.Cont using caution w walker or WC, will FU re possible need for more PT.06/16/2023annot use self-propelled WC due to having injured left shoulder. unable to push a WC for her.In need of an electric WC or a scooter.In the home can barely get around w a walker but with pain and does not always tolerate.3Called pt, discussed approval of her scooter. Informed her we need to schedule home visit/eval, and we need videocall. Tablet needs a adult remedial education instructor, will send and schedule videocall for next week.Having some pain on her left knee, this is not new, Will FU w video.08/14/2023 Has not heard from [facility] but has not been home. Will see if they have called or if it has arrived and will let us know.08/21/2023 ordered in-home eval for scooter09/10/2023Need to do videocall so need to schedule it when pt has help. She has tech savvy limitations. After videocall CN will schedule in-home eval. 09/18/2023Video call for scooter eval.BMI: 42.07Ed importance of healthy weightEd re diet and activityHad bariatric surgery circa 2019?Ed re diet, activitySTABLE - will talk more next timeS/p bariatric surgery 4-5 years ago, taking FE daily and ferritinRandom glucose 150-200's routinelyhas insulin pump and uses injections lispro/lantuswears glassesenc drink water or zero calorie drinks, avoid sodas and sweetscontinue lantus 30 units + trulicity + humalog 8 units TID AC meals and FU with office helper clerical Reports stableWears rafaela padNeeds chux pads, XL pull-ups, gloves XLuses inhaler Flovent BIDHas CPAP using nightlyContinue lovenox as directedAdvancing home PTencouraged UE activity as toleratedHas not been taking BP medication aftersurgery on broken footUPDATE 4Reports compliance nowApril 2022 had a bad fall on steps at entrance to home. Fractured L lower leg, L shoulderStill unable to walkUsing wheelchairNow having PT at [facility]3Per son, can only walk very short distances w a walker, otherwise uses WC. In home may use walker or WC.Pt requesting electric WC.Cont using caution w walker or WC, will FU re possible need for more PT.06/16/2023annot use self-propelled WC due to having injured left shoulder. unable to push a WC for her.In need of an electric WC or a scooter.In the home can barely get around w a walker but with pain and does not always tolerate.07/08/2023alled pt, discussed approval of her scooter. Informed her we need to schedule home visit/eval, and we need videocall. Tablet needs a adult remedial education instructor, will send and schedule videocall for next week.Having some pain on her left knee, this is not new, Will FU w video.08/14/2023 Has not heard from [facility] but has not been home. Will see if they have called or if it has arrived and will let us know.08/21/2023 ordered in-home eval for scooter09/10/2023Need to do videocall so need to schedule it when pt has help. She has tech savvy limitations. After videocall CN will schedule in-home eval. 09/18/2023[place] call for erna horton. Pt still having pain. Has ortho appt in one week (3rd week of Aug 2023). Sending acetaminophen, take 1000 mg TID.Declines productsEscitalopramLives w spouseHas declined therapist12/04/2022Fractured left leg in 3 places and had surgery - also damaged left shoulder.Had PT on leg but not shoulder. Can refer to PT ; had declined due to travel.Will discuss further at FU.09/09/23: Malodorous dark urine, Left flank painWill start nitrofurantoin.Increase water and rest.Tylenol.F/U with MAHENDRA 09/10/23.UPDATE 09/10/2023t has not yet gone to pharmacy picking tech prescription. Feels about the same. Education about importance of taking antibiotics stefania and also make sure you take the entire run of them. Will FU.If nausea, fever, other concerning sxs pls call CB.09/18/2023Was not taking abx as directed, should have run out two days ago, still has 5-7 tablets left.Sxs improving. Please take BID from now on, call us if sxs dont' improve.High risk ptDM HTNPoor complianceMember to call for the following symptoms: Blood sugar <70/ Blood sugar >300Planned intervention: Decrease long-acting insulin Decrease short-acting insulin/ Increase long-acting insulin/ Increase short-acting insulin ... as appropriateSee each individual diagnosis for contingency plan.[facility] 2024-04-21 09:19:41 Phone (patient, pare nt, or guardian); 5-10 minutes of medical discussion (no modifier 95)Continue to see PCP. Follow-up with [facility] as needed for any acute or disease education needs that may arise 23/03.BMI: 43.16Ed importance of healthy weightEd re diet and activityHad bariatric surgery circa 2019?Ed re diet, activitySTABLE - will talk more next timeRandom glucose 150-200's routinelyhas insulin pump and uses injections lispro/lantuswears glassesenc drink water or zero calorie drinks, avoid sodas and sweetscontinue lantus 30 units + trulicity + humalog 8 units TID AC meals and FU with office helper clerical Reports stableWears rafaela padNeeds chux pads, XL pull-ups, gloves XLuses inhaler Flovent BIDuses nebulizer 04/21/24: denies SOBHas CPAP using nightlyHas not been taking BP medication aftersurgery on broken footUPDATE 4Reports compliance nowDeclines productsEscitalopramLives w spouseHas declined therapistHigh risk ptDM HTNPoor complianceMember to call for the following symptoms: Blood sugar <70/ Blood sugar >300Planned intervention: Decrease long-acting insulin Decrease short-acting insulin/ Increase long-acting insulin/ Increase short-acting insulin ... as appropriateSee each individual diagnosis for contingency plan.headache to left side x 4 months. Has taken tylenol with moderate effect. Reports she thought the headache would go away but it hasn't so she came in today. Denies previous hx of headaches. Headache is present on the left side of her face / orbital area. Denies history of head trauma. Denies history of neoplasm. Denies similar headaches in family history.Associated symptoms include blurred vision. Denies diplopia, dizziness, fever, memory impairment, change in cognition, nausea, vomiting, rash, myalgia, weight loss, neck stiffness, or visual aura.Pain is aggravated by bright lights and loud noisesHeadacheThis is a new problem. The current episode started more than 1 month ago. The problem occurs constantly. The problem has been gradually worsening. The pain is located in the Left unilateral region. The quality of the pain is described as pulsating. Pertinent negatives include no abdominal pain, coughing, dizziness, ear pain, fever, nausea, numbness, rhinorrhea, sore throat, vomiting or weakness.imaging 04/04/24 IMPRESSION:1. Unremarkable noncontrast brain CT. No acute hemorrhage, mass effector shift.2. Prior maxillary sinus surgery with mild mucosal thickening andprobable small bilateral nasal polyps. PLAN: start saline rinses, fexofenadine, and triamcinolone nasal spray and f/u with PCP 2024-05-03 06:17:15 Phone (patient, pare nt, or guardian); 5-10 minutes of medical discussion (no modifier 95)Continue to see PCP. Follow-up with [facility] as needed for any acute or disease education needs that may arise 23/03.05/03/2024t previously asked for refill for Walter sensor. Record shows [employer] Walter sensor so MAHENDRA refilled this. Pt uses Walter 2 sensor so refills do not work.Refilled w correct medication and with note to pharmacy.Changed medication entry on chart.ER FOllow upPt touched a plant out in the community, got a rash and conjunctivitis. Went to ER, got benadryl and prednisone. Now recovered except for corners of eyes irritated. (Please apply warm wet compresses PRN).HIPPA call disclaimer for [place] and [place] members this call may be recorded for quality and training purposes ER Visit Follow-up: Spoke to: PatientWhen were you in the ER and where? Date and hospital: 04/30/24 [facility] Why did you go to the ER? Rash after touching plantHow many days were you sick before going? HoursDid the member have a contingency plan? YDid the member go to the ER for the condition addressed by the contingency plan? NWere you then or are you now out of any medications? N What was the outcome of the ER Visit? Benadryl, prednisone (temporary rxs)Did they add or change any medications? Y as aboveDo you have any interventions? as aboveAre you feeling better? worse? same? Are you still thinking about going to the ER? ResolvedNext i[employer] scheduled appt/call: Patient education provided: Krysta bailey call us if similar situation arises in future. Avoid this plant in the futureHow else can we help? Refill (See DM)Member trained on use of ? Red Button? for urgent needs and provided with [employer] phone # as an alternative method to reach acute team. Note completed by: Bunny Sow NPPls call CB if allergic reaction to plant reoccurs. 2024-08-26 06:50:02 Discharge medication s reconciled with current medication listPhone (patient, parent, or guardian); 5-10 minutes of medical discussion (no modifier 95)PCP visit is planned for:08/26/24 -patient reports that she was recently in the emergency room on 08/24/24 due to having uncontrolled fevers and shortness of breath. Patient was positive for Infuenza. Medications given for cough, congestion and an inhaler. She has also see her PCP and she prescribed Mucinex.Education to stay hydrated and drink plenty of fluids and rest. Education that antibiotics do not work for the flu due to it being viral.High risk ptDM HTNPoor complianceMember to call for the following symptoms: Blood sugar <70/ Blood sugar >300Planned intervention: Decrease long-acting insulin Decrease short-acting insulin/ Increase long-acting insulin/ Increase short-acting insulin ... as appropriateSee each individual diagnosis for contingency plan. Health Concerns Date Concern 2024-08-26 Visit completed by kun martins. Informed verbal consent was obtained from this patient to communicate and provide care using virtual and other telecommunications tools. This patient has been explained the risks, if any, related to the encounter. I explained that care provided through video or audio communication cannot replace the need for physical examination or an in-person visit for some disorders or urgent problems. Patient/Guardian agreed to visit via telehealth. Today, patient has chief complaint of: recent hospitalization. 2024-08-26 Tell me about your recent hospital stay(s) or ER visit(s) and precipitating factors: Patient went into the ED on 08/24/25 for shortness of breath, congestion and fever. She was diagnosed with influenza.
--- OUTSIDE RECORDS SUMMARY | 2024-09-21 14:30 | XMS_ITS | Encounter Summary ---
Author Organization [employer] Address [address] [facility] [address] [place] [address] Care Team Providers Care Size Cutter Name Role Phone Radha Bran MD Primary Care Provider + Reason for Visit * Reason Onset Date Comments f/u call 08/29/2024 Encounter Details Date Type Department Care Team ([facility] st Contact Info) Description 08/29/2024 Telephone [facility] MEDICINE [address] [place] [address] Kennedi Calix, RUSSELL [address] [place] [address] f/u call Social History Tobacco Use Types Packs/Day Years Used Date Smoking Tobacco: Never Passive Smoke Exposure: Never Smokeless Tobacco: Never Alcohol Use Standard Drinks/Week Comments Not Currently 0 (1 standard drink = 0.6 oz pur e alcohol) Depression Answer Date Recorded Patient Health Questionnaire-9 Score 13 10/27/2023 Patient Health Questionnaire-9 Score 13 10/27/2023 Last PHQ-9: Questionnaire Data Not on file 0 10/27/2023 Housing Stability Answer Date Recorded What is your housing situation today? I have aliyayesenia sapp 10/12/[address] you li ve. Do you have problems with any of the following? None of the above 10/12/2023 Food Insecurity Answer Date Recorded Within the past 12 months, y ou worried that your food would run out before you got money to buy more: Never True 10/12/2023 Within the past 12 months,th e food you bought just didn't last and you didn't have enough money to get more: Never True 07/2024 Transportation Answer Date Recorded In the past 12 months, has l ack of transportation kept you from medical appts, meetings, work or from getting things needed for daily living? No 10/12/2023 Utilities Answer Date Recorded In the past 12 months, has t he electric, gas, oil or water company threatened to shut off services in your home? Already shut Off 10/12/2023 Depression Answer Date Recorded Patient Health Questionnaire-2 Score 4 10/27/2023 Comments Unknown Sex and Gender Information Value Date Recorded Sex Assigned at Female 06/30/2022 10:14 AM EDT Legal Sex Female 10:14 AM EDT Gender Identity Female 06/30/2022 10:14 AM EDT Sexual Orientation Straight 06/30/2022 10 :14 AM EDT documented as of this encounter Miscellaneous Notes * Telephone Encounter - Kennedi Calix RN - 08/29/2024 11:27 AM EST TC placed to patient [phone] in regards to below message. Patient reports she is feeling muchbetter . Patient reports she does not have a fever anymore. Patient reports she has a slight sore throat. Patient reports she has a cough at times but it is much better, patient reports it is a mild dry cough. Patient denies any chest pain or SOB on the phone. Patient advised if her s/s worsen to call [facility] or come to the [facility] for evaluation. Patient reports she used the tamiflu and the codeine/guaif at night time and used the albuterol inhaler only when needed as patient reports it makes her nervous . Patient to f/u PRN. ----- Message from Radha Bran MD sent at 08/25/2024 4:28 PM EST ----- Patient seen in the [facility] ED on 08/24/24 dx with Influenza, sxs started on 08/22 to . I called her and she tells me that she continues with fever until this morning, cough is better with cough medicine (Codeine/guaif) and albuterol. No new sxs. I sent a rx for Tamiflu that she should start SULEMAN , cut down on codeine and take it only at night, continue albuterol inh q4h prn cough/sob. [facility] will [facility] Sat morning if sxs do not improve by tomorrow afternoon, or ED if they get worse. AP/ Please call back on 08/29 to fu on sxs. Triage if needed or she can fu with me as schedulednext mo documented in this encounter Plan of Treatment Not on file documented as of this encounter Visit Diagnoses Not on filedocumented in this encounter Additional Health Concerns Assessment Noted Time PHQ-9 Depression Total Score: 13 10/27/ 024 10:37 AM EST documented as of this encounter Care Teams Size Cutter Relationship Specialty Start Date End Date Radha Bran MD [address] [place] [id number] PCP - General Family Medicine 10/16/20 documented as of this encounter
--- OUTSIDE RECORDS SUMMARY | 2024-09-21 14:30 | XMS_ITS | Encounter Summary ---
Author Organization [employer] Address [address] [facility] [address] [place] [address] Care Team Providers Care Aircraft Structural Fitter Name Role Phone Radha Bran MD Primary Care Provider + Reason for Visit * Reason Onset Date Comments Durable Medical Equipment 09/08/2024 Encounter Details Date Type Department Care Team ([facility] st Contact Info) Description 09/08/2024 Telephone [facility] MEDICINE [address] [place] [address] Radha Bran MD [address] [place] [address] Durable Medical Equipment Social History Tobacco Use Types Packs/Day Years [...] is your housing situation today? I have aliya sapp 10/12/[address] you [...] encounter Miscellaneous Notes * Telephone Encounter - Yahaira Daniel MA - 09/08/2024 1:48 PM EST Tc from [facility] ceballos's CM with returning call re dx for requested incontinence supplies. Will use dx on previous DME script under media. Faxed script for bed pas, liner, gloves, and wipes to ([phone]). Fax was successful. documented in this encounter Plan of Treatment Not on file documented as of this encounter Visit Diagnoses Not on filedocumented in this encounter Additional Health Concerns Assessment Noted Time PHQ-9 Depression Total Score: 13 024 10:37 AM EST documented as of this encounter Care Teams Aircraft Structural Fitter Relationship Specialty Start Date End Date Radha Bran MD [address] [place] [address] PCP - General Family Medicine 10/16/20 documented as of this encounter
--- OUTSIDE RECORDS SUMMARY | 2024-09-21 14:30 | XMS_ITS | Encounter Summary ---
Author Organization [employer] Address [address] [facility] [address] [place] [address] Care Team Providers Care Energy Broker Name Role Phone Radha Bran MD Primary Care Provider + Reason for Visit * Reason Onset Date Comments Durable Medical Equipment 09/06/2024 Encounter Details Date Type Department Care Team ([facility] st Contact Info) Description 09/06/2024 Telephone [facility] MEDICINE [address] [place] [address] Radha Bran MD [address] [place] [address] Durable Medical Equipment Social History Tobacco Use [...] Telephone Encounter - Yahaira Daniel MA - 09/06/2024 3:07 PM EST Tc to Gina pt's CM with to ask what dx they want to use for requested incontinence supplies. Gina didn't answer, LVM with call back number. documented in this encounter Plan of Treatment Not on file documented as of this encounter Visit Diagnoses Not on filedocumented in this encounter Additional Health Concerns Assessment Noted Time PHQ-9 Depression Total Score: 13 024 10:37 AM EST documented as of this encounter Care Teams Energy Broker Relationship Specialty Start Date End Date Radha Bran MD [address] [place] [address] PCP - General Family Medicine 10/16/20 documented as of this encounter
--- OUTSIDE RECORDS SUMMARY | 2024-09-21 14:30 | XMS_ITS | Clinical Summary ---
Author Organization 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 aspirin 81 MG EC tablet Take 1 tablet by mouth in the morning. 07/14/20 18 Active baclofen (Lioresal) 20 MG tablet Take 1 tablet by mouth every 8 (eight) hours. 11/29/19 21 Active folic acid (Folvite) 1 MG tablet Take 1 tablet by mouth in the morning. 05/21/20 17 Active betamethasone valerate (Valisone) 0.1 % cream Apply topically in the morning. 12/21/19 22 Active cetirizine (ZyrTEC) 10 MG tablet Take 1 tablet by mouth in the morning. 08/09/20 21 Active Docusate Sodium (DSS) 100 MG capsule Take 1 capsule by mouth every 12 (twelve) hours. Active fluticasone (Flovent HFA) 220 MCG/ACT inhaler Inhale 2 puffs every 12 (twelve) hours. 05/30/20 20 Active glucose blood (FREESTYLE LITE) test strip 3 each every 8 (eight) hours. 08/28/20 21 Active glucose blood (OneTouch Ultra) test strip 2 each every 12 (twelve) hours. 12/09/19 20 Active mirabegron ER (Myrbetriq) 50 MG 24 hr tablet Take 1 tablet by mouth in the morning. 12/07/19 19 Active multivitamin (Theragran) tablet Take 1 tablet by mouth in the morning. 11/25/19 19 Active Vaginal Lubricant (Replens) gel use as directed 10/15/19 22 Active Blood Pressure Monitoring (Blood Pressure Cuff) [facility] blood pressure test kit-large cuff USE DIRECTED Active FreeStyle lancets FreeStyle Lancets 28 gauge USE DIRECTED THREE TIMES DAILY Active Blood Glucose Monitoring Suppl (FreeStyle Lite) w/Device kit FreeStyle Lite Meter kit USE DIRECTED TO TEST BLOOD SUGAR THREE TIMES DAILY Active glucose blood (FREESTYLE TEST STRIPS) test strip FreeStyle Lite Strips USE TO CHECK BLOOD GLUCOSE THREE TIMES DAILY DIRECTED Active albuterol 108 (90 Base) MCG/ACT inhaler albuterol sulfate HFA 90 mcg/actuation aerosol inhaler INHALE 2 PUFFS BY MOUTH FOUR TIMES DAILY NEEDED 07/01/20 22 Active UltiCare Alcohol Swabs 70 % pads DIRECTED TWICE DAILY 09/24/19 22 Active fluconazole (Diflucan) 150 MG tablet fluconazole 150 mg tablet TAKE 1 TABLET BY MOUTH 1 TIME. REPEAT AFTER 72 HOURS Active terconazole (Terazol 7) 0.4 % vaginal cream terconazole 0.4 % vaginal cream INSERT 1 APPLICATORFUL VAGINALLY EVERYDAY FOR 7 DAYS AT BEDTIME Active omeprazole (PriLOSEC) [address] capsuleIndicati ons:Gastroesoph ageal reflux disease without esophagitis Take 1 capsule (40 mg) by mouth in the morning. Before a meal 30 capsule 11 10/10/19 23 Active Diclofenac Sodium 1 % gel 08/28/20 22 Active CeQur Simplicity 2U device APPLY PATCH DIRECTED 10/02/19 23 Active HumaLOG 100 UNIT/ML injection Inject 8 units TID 10/16/19 23 Active fluticasone (Flonase Allergy Relief) 50 MCG/ACT nasal sprayIndication s:Obstructive sleep apnea syndrome Administer 2 sprays into each nostril in the morning. 16 g 3 01/10/20 23 Active Iron, Ferrous Sulfate, 325 (65 Fe) MG tabletIndicatio ns:Other iron deficiency anemia Take 1 tablet by mouth in the morning. 90 tablet 3 01/21/20 23 Active Insulin Glargine Solostar 100 UNIT/ML solution pen-injectorInd ications:Type I or II open displaced comminuted fracture of shaft of left tibia with routine healing, subsequent encounter Inject 30 Units under the skin in the morning. Inject 24u/hs (endocrinology refills) 10 mL 3 10/12/19 24 025 Active acetaminophen (Tylenol) 500 MG tabletIndicatio ns:Encounter for preventive health examination,Cornel waggoner Take 1-2 tablets (500-1,000 mg) by mouth every 6 (six) hours if needed for mild pain. 120 tablet 10/12/19 24 Active ergocalciferol (Vitamin D-2) 1.25 MG (17306 UT) capsule Take 1 capsule (1.25 mg) by mouth 1 (one) time per week. 12 capsule 1 10/20/19 24 025 Active hydrOXYzine pamoate (Vistaril) 25 MG capsule Take 1 capsule (25 mg) by mouth every 6 (six) hours if needed for anxiety. 45 capsule 1 10/27/19 24 Active irbesartan (Avapro) 75 MG tablet Take 1 tablet (75 mg) by mouth in the morning. 30 tablet 11 12/04/19 24 025 Active BD Pen Needle Nora 2nd Gen 32G X 4 MM misc Use as instructed 100 each 05/04/20 24 Active Polyvinyl Alcohol-Povidon e 5-6 MG/ML solution Administer 2 drops into affected eye(s) 4 times daily. 15 mL 3 05/04/20 24 025 Active escitalopram (Lexapro) 20 MG tablet TAKE 1 TABLET(20 MG) BY MOUTH EVERY DAY 30 tablet 3 06/14/20 24 Active gabapentin (Neurontin) 100 MG capsuleIndicati ons:Type I or II open displaced comminuted fracture of shaft of left tibia with routine healing, subsequent encounter TAKE 1 CAPSULE(100 MG) BY MOUTH EVERY 12 HOURS 60 capsule 3 08/08/20 24 Active oseltamivir (Tamiflu) 75 MG capsule Take 1 capsule (75 mg) by mouth 2 times daily for 5 days. 10 capsule 08/25/20 24 024 Active Problems Problem Noted Date Diagnosed Date Tinea corporis 05/04/2024 Assessment & Plan (05/04/2024 12:37 PM EDT): - on abdomen - use Clotrimazole cream BID Memory deficit 05/04/2024 Assessment & Plan (05/04/2024 12:38 PM EDT): - I noticed pt having difficulty remember apptointments and even keeping track on calendars - I advised her to keep one single calendar for her appointments and call the office back if she does not receive a timely appt. - will f/u next month once DM is better controlled and do MMSE - head CT scan on 04/08/24 showed no significant vascular changes on the brain - TSH and RPR in 2023 are WNL Acquired renal cyst of left kidney 12/04/2023 Assessment & Plan (12/04/2023 11:29 AM EDT): Will refer new onset Refer to urology for further evaluation Calculus of gallbladder with out cholecystitis without obstruction 12/04/2023 Assessment & Plan (12/04/2023 11:29 AM EDT): Counseled regarding low fat meal intake Refer to surgery for further evaluation Palpitation 10/27/2023 Assessment & Plan (12/04/2023 11:28 AM EDT): 24 hr heart monitor showed some PVCs but no RUN's, likely related to agonist, anxiety or BS fluctuation Reassurance, told pt to keep a Sx diary and FU next m No need of medications this time, will add Beta max if needed Weakness 10/14/2023 Osteopenia of lumbar spine 10/14/2023 Assessment & Plan (12/04/2023 11:29 AM EDT): Started on Vit D supplementation Continue Calcium + D Assessment & Plan (10/14/2023 4:58 PM EST): Needs fu BMD test, will order Screening mammogram for breast cancer 10/14/2023 Assessment & Plan (10/14/2023 4:56 PM EST): Mammogram Views may be limited due to left rotator cuff tear, will attempt to schedule. Health care maintenance 10/12/2023 Assessment & Plan (10/14/2023 4:52 PM EST): Discussed with patient re increase fresh fruit and vegetable intake. Counseled re moderate exercise as tolerated, up to 20min/d Patient feels safe at home. PAP smear: Overdue, no report of recent PAP. Patient declined t have it scheduled now, FU at next appt. Mammogram: Overdue, schedule mammo Bone density test: Overdue, TBO, Eye exam: Up to date, next one due on 08/2024 CRC screen: Up to date, next one due on 2024 Lipids/FBS: Over due, TBO Vaccinations: Covid and Td booster overdue, declines to have them today, fu at next RV. Dental visit: Over due, I gave her info re dental clinics in the area. Osteoarthritis of left knee 06/03/2023 Assessment & Plan (06/03/2023 7:33 PM EDT): It must have been exacerbated by recent fracture Take tylenol prn, tramadol for severe pain only. Patient understands that she will take it for few days only. If sxs continue, she may need PT (specifically for her knee). Walk with cane or walker, prevention of falls d/w patient./ Closed 2-part nondisplaced f racture of surgical neck of left humerus with routine healing 01/09/2023 Assessment & Plan (01/09/2023 11:11 AM EDT): Doing well, wearing a sling. Encouraged rotation movement of the wrists. Open displaced comminuted fracture of shaft of l eft tibia 01/09/2023 Assessment & Plan (10/14/2023 4:47 PM EST): Improving, she has partial weight bearing, should walk with walker with a seat and wear DM shoes with custom inserts. FU with orhtopedics Assessment & Plan (06/03/2023 7:34 PM EDT): Significantly better, fu with orthopedics. Complete PT, ambulation with walker. Recommended to live on a lower floor apartment/ handicap access. Assessment & Plan (01/09/2023 11:12 AM EDT): Continue walking boot and emphasized the importance of nonweightbearing status, transfer with wheelchair and assistance with a cane. Continue PT at home and advance ambulation per PT Prioritize using bedside commode over walking inside the house. FU with orthopedics on 01/24, use oxycodone PRN pain + Lovenox daily 1 more week. Will refer to [facility] for assistance to move to a housing unit with handicap access and no stairs due to history of recurrent falls in the past. Iron deficiency anemia 01/09/2023 Assessment & Plan (01/20/2023 2:00 PM EDT): Resolved. due to history of bariatric surgery will continue iron supplementation daily and recheck hemoglobin and ferratin next year. Assessment & Plan (01/09/2023 11:07 AM EDT): Post-op bleeding. check H&H and iron studies Drug-induced constipation 01/09/2023 WESTLEY (generalized anxiety disorder) 01/09/2023 Assessment & Plan (10/29/2023 2:08 PM EST): PLAN: (check all that apply) New/Additional Services needed PCP management Off-site services for Behavioral Health Integration Plan External OP therapy referral and OP psychiatry Referral Patient Self Plan Patient to utilize skills provided in intervention , [facility] as needed, Comply with medication , Patient to engage in OP therapy , Patient to reach out to [facility] as needed, and Patient to follow-up with external team PCP will start patient on medication Assessment & Plan (01/09/2023 11:07 AM EDT): Continue lexapro 20 mg and add gabapentin BID for anxiety Restless legs 01/09/2023 Assessment & Plan (01/09/2023 11:06 AM EDT): Unclear if related to iron deficiency vs anxiety vs RLS Check iron studies and start gabapentin BID, FU in 3 weeks. Right upper quadrant abdominal pain 09/24/2022 Assessment & Plan (09/24/2022 10:53 AM EST): Order abdominal US to check both kidney and liver. 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 Mohamud's office to check on endo appt. - continue Humalog TID AC meals + Lantus 30 units per day - advised to start using CGM at home - I called [facility] and she happens to have appt. today at 1:30 pm, information regarding office was given to pt - information regarding podiatry referral given to pt today to r/s appt - f/u with me in 3 months Assessment & Plan (03/14/2024 6:06 PM EDT): Uncontrolled. She's off/out of Mounjaro for 1-2m at least. I called pharmacy and they have Mounjaro ready for patient, she will pick it up today and I will fu in 4-6w. Continue Lantus 34u + Humalog tid sliding scale and she will call endo to rs appt fu sp ED visit back on December. New podiatry referral for toenail trimming, she wants to go to a different podiatry. Assessment & Plan (12/04/2023 11:31 AM EDT): Probably better controlled She has an appointment w/ sales recruitment specialist in the next 2 wks Continue Humalog + Lantus 24 units + Mounjaro Counseled re more frequent low calorie/carb meals. Check fgstk daily Encouraged physical activity as tolerated. FU w/ sales recruitment specialist Assessment & Plan (10/12/2023 2:48 PM EST): Uncontrolled. A1c is worsening Started on Mounjaro 2.5mg by endocrinology (TASHI Mora) Counseled re more frequent low calorie/carb meals. Check fgstk 2x daily Encouraged physical activity as tolerated. FU in 3 months. Assessment & Plan (06/03/2023 7:39 PM EDT): Controlled. A1c was at goal recently at endo office. Continue on Trulicity, humalog (via transdermal infussion)+ Lantus 24u/d Counseled re more frequent low calorie/carb meals. Prevention of hypoglycemia d/w patient. Will call endo office to send rx for CGM sensors Check fgstk 3x daily if no sensors available Encouraged physical activity as tolerated. FU in 3 months for PE. Assessment & Plan (01/20/2023 2:01 PM EDT): It is probably improved but today's hyperglycmemia is a result of having a high calorie drink (OJ) discussed with pt to drink water or zero calorie drinks, avoid sodas and sweets continue lantus 30 units + trulicity + humalog 8 units TID AC meals and FU with sales recruitment specialist in February, she will fu with me in 12 weeks Assessment & Plan (01/09/2023 11:10 AM EDT): Uncontrolled. Increase Lantus to 30 units per day and no other medication changes, follow up with sales recruitment specialist. Assessment & Plan (09/24/2022 10:50 AM EST): Uncontrolled. A1C is worse than last month. Most likely related to acute URI at this time. No change in medications, FU closely with sales recruitment specialist. COVID-19 09/24/2022 Assessment & Plan (09/24/2022 10:51 AM EST): Symptoms are most likely related to Covid, now in the second week and seems to be recovering no need for treatment at this time recommended to continue in isolation for 3 more days and test close contact. Pt has 2 Covid boosters. Cough in adult 09/24/2022 Assessment & Plan (09/24/2022 10:51 AM EST): Pt covid test is positive. Lesion of right [place] kidney 09/24/2022 Assessment & Plan (09/24/2022 10:53 AM EST): Likely cuplrit of pt RUQ pain, order abdominal US to check both kidney and liver. 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 with type 2 diabetes mellitus 08/27/2022 Assessment & Plan (08/27/2022 12:55 PM EST): [facility] and they can see patient this Monday August 29, 2022 at 2pm Notes faxed from [facility] and scanned into chart She did miss an injection two months ago, which may account for her worsening vision No acute loss of vision, severe eye redness, visual field intact to confrontation Think it is reasonable for pt to wait until Thursday at 2pm for appointment, to ER if acute loss of vision Acute sinusitis 07/22/2022 Body aches 07/22/2022 Abdominal bloating 07/22/2022 Hip pain 07/22/2022 Loss of hair 07/22/2022 Mild persistent asthma without complication 07/02 Pruritus of vagina 07/22/2022 Recurrent falls 07/22/2022 Assessment & Plan (01/09/2023 11:08 AM EDT): Refer to [facility] /care mangement to assist with moving to a handicap place where she doesn't need to negotiate stairs. Continue rehab as above. 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 Continue Avapro 75mg and fu with me in 4w. Assessment & Plan (12/04/2023 4:01 PM EDT): Uncontrolled today. Med profile shows that she hasn't been on Avapro in more than 3m, will restart and fu in 3w Pt to check BP at home and bring BP machine to next visit Counseled re low salt diet/increase moderate physical activity. Check home BP BIW and prn CP/CARIAS/DE JESUS Non smoking patient. Assessment & Plan (10/12/2023 3:02 PM EST): Controlled, repeated BP is 130/85. Compliant w/meds Unclear if she's taking irbesartan (not on recent refills, she says she's taking all her meds ) Counseled re low salt diet/increase moderate physical activity. Check home BP BIW and prn CP/CARIAS/DE JESUS. FU in 1m w med bottles and labs Non smoking patient. Assessment & Plan (01/09/2023 11:09 AM EDT): BP is at goal. Pt is off BP medication after bariatric surgery. Continue monitoring bp. Check labs. Gastroesophageal reflux disease without esophagi tis 09/10/2015 Hyperlipidemia 09/10/2015 Increased frequency of urination 09/10/2015 Lichen sclerosus et atrophicus 09/10/2015 Obstructive sleep apnea syndrome 09/10/2015 Assessment & Plan (01/09/2023 11:09 AM EDT): Continue using CPAP at night to decrease moribidity and mortality. Raised intraocular pressure 09/10/2015 Encounters Date Type Department Care Team Description 09/21/2024 Orders Only GENERIC EXTERNAL DATA DEPARTMENT Provider, Generic External Data 09/08/2024 Telephone [facility] [address] [place] [address] Radha Bran MD Durable Medical Equipment 09/06/2024 Telephone [facility] [address] [place] [address] Radha Bran MD Durable Medical Equipment 08/29/[address] [id number] Kennedi Calix RN f/u call 08/25/2024 Orders Only [address] [id number] Radha Bran MD 08/24/2024 Orders Only GENERIC EXTERNAL DATA DEPARTMENT Provider, Generic External Data 08/19/[address] [phone] Radha Bran MD Durable Medical Equipment 08/11/[address] [phone] Radha Bran MD Durable Medical Equipment ([facility] Request: Incontinence supplies) 08/08/[address] [phone] Radha Bran MD Type I or II open displaced comminuted fracture of shaft of left tibia with routine healing, subsequent encounter 08/03/[address] [phone] Radha Bran MD fyi 07/12/[address] [phone] Radha Bran MD August recall from Last 3 Months Immunizations Name Administration Dates Next Due Hep B, adult 07/09/2018,09/17/2017,01/31/2014 Influenza High-dose Quadriva lent Preservative Free 06/03/2023 Influenza Injectable Quadriv alant Preservative Free IIV4 MDCK 06/26/2022 Influenza Quadrivalent Adjuvanted 10/01/2021 Influenza injectable quadriv alent IIV4 with preservative 09/10/2015 Influenza injectable quadriv alent preservative free 06/04/2020,06/18/2017 Influenza, High Dose Seasona l, Preservative Free 07/09/2018 Influenza, IIV3, injectable 06/01/2014, 1 Influenza, Split (incl. giles fied surface antigen) 06/07/2013,05/20/2012 Moderna Covid-19 Vaccine 12+ 12/23/2021, 07/24/2021,11/15/2020,10/18 Pfizer Covid-19 Vaccine 12+ 10/12/2023 Pfizer Covid-19 Vaccine 12+ Bivalent 07/14/2022 Pneumococcal Conjugate PCV 13 06/04/2020, 017 Pneumococcal Polysaccharide PPSV23 07/09/2018, TD (adult), 2 Lf tetanus tox oid, preservative free, adsorbed 10/12/2023,06/29/2007,03/11/1996 Tdap 03/19/2012 Zoster, Recombinant 06/26/2022,06/04/2020 Zoster, live 09/10/2015 Social History Tobacco Use Types Packs/Day Years Used Date Smoking Tobacco: Never Passive Smoke Exposure: Never Smokeless Tobacco: Never Tobacco Cessation:Counseling Given: Not Answered Alcohol Use Standard Drinks/Week Comments Not Currently [...] Orientation Straight 06/30/2022 10 :14 AM EDT Last Filed Vital Signs Vital Sign Reading Time Taken Comments Blood Pressure 149/79 05/04/2024 11:34 AM EDT Pulse 68 05/04/2024 11:34 AM EDT Temperature 37.1 ??C (98.8 ??F) 05/04/2024 11:34 AM E DT Respiratory Rate 24 05/04/2024 11:34 AM EDT Oxygen Saturation 96% 05/04/2024 11:34 AM EDT Inhaled Oxygen Concentration - - Weight 108 kg (238 lb 6 oz) 05/04/2024 11:34 AM EDT Height 157.5 cm (5' 2 ) 05/04/2024 11:34 AM EDT Body Mass Index 43.6 05/04/2024 11:34 AM EDT Plan of Treatment Health Maintenance Due Date Last Done Comments CT Colonography 1950 Dental Oral Exam 1950 Dental Prophylaxis 1950 Dental X-Ray: Bitewings 1950 Dental X-Ray: Full Mouth 1950 FIT DNA/Cologuard 1950 FIT 1950 FOBT 1950 Sigmoidoscopy 1950 Eye Exam 1962 Alcohol/Substance Use Screening 1964 RSV Patients and Patients Aged 60 years or older (1 - Risk 60-74 years 1-dose series) 2012 Mammogram 11/27/2023 11/26/2021, 03/2 05/2022, 11/26/2021, Additional history exists Depression Monitoring (PHQ-9) 04/26/2024 10/27/2023, 10/27/2023 COVID-19 Vaccine ( season) 2024 10/12/2023, 07/14/2022, 12/23/2021, Additional history exists Influenza Vaccine (#1) 2024 , 06/26/2022, 10/01/2021, Additional history exists Colonoscopy 10/04/2024 10/04/2019 Colorectal Cancer Screening 10/04/2024 SDOH Screening 10/12/2024 10/12/2023 Lipid Panel 10/20/2024 10/20/2023, 10/30, 10/23/2021, Additional history exists Depression Screening 10/27/2024 10/27/2023, 10/27/19 Diabetes: Hemoglobin A1C 11/21/2024 024, 03/14/2024, 10/12/2023, Additional history exists Diabetes: Foot Exam 03/14/2025 03/14/2024, 03/14/2024, 03/14/2024, Additional history exists Diabetes: Urine Protein Screening 03/22/2025 03/22/2024, 10/20/2023, 10/23/2021, Additional history exists Tobacco Screening 05/04/2025 05/04/2024 DTaP/Tdap/Td Vaccines (3 - Td or Tdap) 10/12/2033 10/12/2023, 03/19/2012, 06/29/2007, Additional history exists Hepatitis B Vaccines Completed 07/09/2018, 09/17/2017, 01/31/2014 Pneumococcal Vaccine: 65+ Years Completed 06/04/2020, 07/09/2018, 05/21/2017, Additional history exists Zoster Vaccines Completed 06/26/2022, 12/2019, 09/10/2015 Hepatitis C Screening Completed 10/20/2023, 022 HIB Vaccines Aged Out No longer eligi ble based on patient's age to complete this topic HPV Vaccines Aged Out No longer eligi ble based on patient's age to complete this topic Hepatitis A Vaccines Aged Out No long er eligible based on patient's age to complete this topic IPV Vaccines Aged Out No longer eligi ble based on patient's age to complete this topic Meningococcal Vaccine Aged Out No bryce franklin eligible based on patient's age to complete this topic RSV under 20 months Aged Out No longe r eligible based on patient's age to complete this topic Rotavirus Vaccines Aged Out No longer eligible based on patient's age to complete this topic Procedures Procedure Name Priority Date/Time Associated Diagnosis Comments GLUCOSE, WHOLE BLOOD Routine 09/21/2024 1:18 PM EST XR CHEST 1 VIEW Routine 08/24/2024 12:50 AM EST COVID-19 ID NOW (POLO) Routine 08/24/2024 12:37 AM EST INFLUENZA A B2 ID NOW (POLO) Routine 08/24/2024 12:37 AM EST HEMOGLOBIN A1C Routine 05/24/2024 11:53 AM EDT PROTEIN CREATININE RATIO, URINE Routine 03/22/2024 12:15 PM EDT HEPATITIS PANEL, GENERAL Routine 10/20/2023 8:42 AM EST 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, without long-term current use of insulin, unspecified retinopathy severity (CMS/HCC) LIPID PANEL WITH REFLEX TO DIRECT LDL Routine 10/20/2023 8:42 AM EST 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, without long-term current use of insulin, unspecified retinopathy severity (CMS/HCC) Essential hypertension HM MAMMOGRAPHY Routine 11/26/2021 HM COLONOSCOPY Routine 10/04/2019 from Last 3 Months or Most Recently Relevant to Health Maintenance Results * (ABNORMAL) Glucose, Whole Blood (09/21/2024 1:18 PM EST) Glucose, Whole Blood 170(H) 60 - 115 mg/dL [facility] Comment:METER #: [id number] 5Testing performed in the Endocrinology Department [address] , [address], [place]. 09/21/2024 1:18 PM EST 09/21/2024 1:22 PM EST us Generic External Data Provider LAB BLOOD ORDERAB LES Final Result [facility] [address] [place] [phone] * XR Chest 1 View (08/24/2024 12:50 AM EST) Anatomical Region Laterality Modality Chest Radiographic [place] ging 08/24/2024 12:5 0 AM EST Narrative 08/24/2024 1:00 AM EST ? [facility] ?[address] ?[place] [address] ?XRay Report ? Signed ? Patient: Halley Sewell ?MR#: M ?? [id number] ? : 1950 ?Acct:[id number] ? Age/Sex: 74 / F ?ADM Date: 08/24/24 ? Loc: HO.ED ? Attending Dr: ? Ordering Physician: Generic ED Physician ?? Date of Service: 08/24/24 ?? Procedure(s): XR chest 1V ?? Accession Number(s): [id number] ? cc: Radha Bran MD; Generic ED Physician ? EXAMINATION: ?? XR CHEST ? CLINICAL INFORMATION: ?? cough ? COMPARISON: ?? CT chest 12/04/2022, chest radiograph 03/17/2022 ? TECHNIQUE: ?? Frontal view of the chest was obtained. ? FINDINGS: ?? No significant abnormality is noted involving the heart, lungs, ?? mediastinum, bony thorax or soft tissues aside from old healed fracture ?? of the left humeral head. ? XR/XR chest 1V ?? IMPRESSION: ?? Unremarkable examination. ? Electronically signed by: ??Patrice Jones MD ??08/24/2024 12:57 AM EST ?? RP ? Dictated By: ?Patrice Jones MD ? Signed By: ?<Electronically signed by Patrice Jones MD in OV> ? 08/24/24 0057 ? DD/ 0050 ? TD/TT: 08/24/24 0051 ? Industrial X Ray Operator: SS ? Procedure Note Sanjiv Ashraf - 08/24/[address] [address] XRay Report Signed Patient: Kyrie Sewell#: M [id number] : 2Acct:[id number] Age/Sex: 74 / FADM Date: 08/24/24 Loc: HO.ED Attending Dr: Ordering Physician: Generic ED Physician Date of Service: 08/24/24 Procedure(s): XR chest 1V Accession Number(s): [id number] cc: Radha Bran MD; Generic ED Physician EXAMINATION: XR CHEST CLINICAL INFORMATION: cough COMPARISON: CT chest 12/04/2022, chest radiograph 03/17/2022 TECHNIQUE: Frontal view of the chest was obtained. FINDINGS: No significant abnormality is noted involving the heart, lungs, mediastinum, bony thorax or soft tissues aside from old healed fracture of the left humeral head. XR/XR chest 1V IMPRESSION: Unremarkable examination. Electronically signed by: Patrice Jones MD 08/24/2024 12:57 AM EST Dictated By: Patrice Jones MD Signed By: <Electronically signed by Patrice Jones MD in OV> 08/24/24 0057 DD/ 0050 TD/TT: 08/24/24 0051 Industrial X Ray Operator: SS [facility] External Provider IMG XR PROCEDURES Final Result * (ABNORMAL) Influenza A B2 ID NOW (Polo) (08/24/2024 12:37 AM EST) IDNOW SERIAL# [id number] [facility] Influenza A Positive(A) Negative [facility] Influenza B2 Negative Negative [facility] Influenza A B2 Note See Note [facility] Comment:The Polo ID NOW In fluenza A B2 test is used for thequalitative detection of influenza A and B from patientswith signs and symptoms of respiratory infection.Negative results do not preclude influenza virus infectionand should not be used as the sole basis for diagnosis,treatment or other patient management decisions.There is a risk of false negative results due to thepresence of variants in the viral targets of the assay, lowlevels of virus in the specimen and co- infection withRespiratory Syncytial Virus. 08/24/2024 12:3 7 AM EST 08/24/2024 12:43 AM EST us Generic External Data Provider LAB MICROBIOLOGY - GENERAL ORDERABLES Final Result Performing Organization Address [facility]/ZIP Co de Phone Number [facility] [address] [place] [phone] * COVID-19 ID NOW (POLO) (08/24/2024 12:37 AM EST) IDNOW SERIAL# [id number] [facility] COVID-19 TEST Negative Negative [facility] COVID-19 NOTE See Note [facility] Comment: Results are for the identification of SARS-CoV2 RNA. TheSARS-CoV2 RNA is generally detectable in respiratory samplesduring the acute phase of infection. Positive results areindicative of the presence of SARS-CoV-2 RNA; clinicalcorrelation with patient history and other diagnosticinformation is necessary to determine patient infectionstatus. Positive results do not rule out bacterial infectionor co- infection with other viruses.Testing facilities within the [facility] and [facility] are required to report all positive results tothe appropriate public health authorities.Negative results should be treated as presumptive and, ifinconsistent with clinical signs and symptoms or necessaryfor patient management, should be tested with differentauthorized or cleared molecular tests. Negative results donot preclude SARS-CoV2 RNA infection and should not be usedas the sole basis for patient management decisions. Negativeresults should be considered in the context of a patient'srecent exposures, history and the presence of clinical signsand symptoms consistent with COVID-19.This test has been authorized by the FDA under an EmergencyUse Authorization (EUA) for use by authorized laboratories.Testing performed on the Polo ID NOW utilizing NAAT. 08/24/2024 12:3 7 AM EST 08/24/2024 12:43 AM EST us Generic External Data Provider LAB MOLECULAR SONIA GNOSTICS ORDERABLES Final Result Performing Organization Address City/[facility]/ZIP Co de Phone Number [facility] [address] [place] [phone] * (ABNORMAL) Hemoglobin A1c (05/24/2024 11:53 AM EDT) Hemoglobin A1c 6.9(H) <6.0 % [facility] Comment:Hemoglobin A1C Refer ence Range Adults: 4.8 - 6.0 % Non diabetic: < 6.0 % Goal: < 7.0 %Additional Action Suggested: > 8.0 %Note: Hemoglobin A1c results are invalid for patients with abnormal amounts of HbF. Blood transfusions may impact the HbA1c concentration in the patient sample. Estimated Average Glucose 151 mg/dL [facility] Comment:eAG = Estimated ave rage glucose which is %A1C expressed asaverage glucose, using the formula of the S7S-GidpoagThliprc Glucose study (ADAG), Diabetes Care, Vol.31,#8,Mar. 2007 05/24/2024 11:5 3 AM EDT 05/24/2024 11:53 AM EDT us Generic External Data Provider LAB BLOOD ORDERAB LES Final Result Performing Organization Address City/[facility]/ZIP Co de Phone Number [facility] [address] [place] [phone] * (ABNORMAL) Protein Creatinine Ratio, Urine (03/22/2024 12:15 PM EDT) Creatinine, Urine 230.20 mg/dL [facility] Protein, Total, Random Urine 39(H) <12 mg/dL [facility] Protein/Creati nine Ratio, Ur 0.17 <0.2 [facility] Comment:The spot urine prote in:creatinine ratio may increase to 0.3during normal . 03/22/2024 12:1 5 PM EDT 03/22/2024 1:23 PM EDT us Generic External Data Provider LAB URINE ORDERAB LES Final Result Performing Organization Address [facility]/ZIP Co de Phone Number [facility] [address] [place] [phone] * Lipid Panel with Reflex to Direct LDL (10/20/2023 8:42 AM EST) Triglycerides 145 <150 mg/dL [facility] Comment:Desirable Triglyceri de: less than 150 mg/dLBorderline High Triglyceride 150-199 mg/dLHigh Triglyceride: 200-499 mg/dLVery High Triglyceride: greater than or equal to 5OO mg/dL Cholesterol 161 <200 mg/dL [facility] Comment:Desirable Cholestero l: less than 200 mg/dLBorderline High Cholesterol: 200-239 mg/dLHigh Cholesterol: greater than 239 mg/dL LDL Cholesterol Calculated 86 <100 mg/dL [facility] Comment:Desirable LDL: less than 100 mg/dLNear Optimal/Above Optimal LDL: 110- 129 mg/dLBorderline High LDL: 130-159 mg/dLHigh LDL: 160-189 mg/dLVery High LDL: greater than or equal to 190 mg/dL HDL Cholesterol 46 >40 mg/dL [facility] Comment:Desirable HDL: great er than 40 mg/dL Note: This HDL assay may give artificially low results in patients with liver disease. Blood 10/20/2023 8:42 AM EST 10/20/2023 8:42 AM EST us Radha Bran MD LAB BLOOD ORDERABLES Fin al Result [facility] [address] [place] [phone] * Hepatitis Panel, General (10/20/2023 8:42 AM EST) Hepatitis A IgM Nonreactive Nonreactive [facility] Comment:IgM antibodies to CARIAS V not detected; does not exclude earlyacute or recovered HAV infection. ~Hepatitis B Surface Antibody NONREACTIVE Nonreactive [facility] Comment:Nonreactive: < 8.00 mIU/mL Hepatitis B Core Antibody Nonreactive Nonreactive [facility] Hepatitis C Antibody Nonreactive Nonreactive [facility] Comment:Antibodies to HCV no t detected; does not exclude early acuteHCV infection. Hepatitis B Surface Ag Negative Negative [facility] Blood 10/20/2023 8:42 AM EST 10/20/2023 8:42 AM EST Radha Bran MD LAB BLOOD ORDERABLES Fin al Result [facility] [address] [place] [phone] * Mammography (11/26/2021) Mammogram performed Anatomical Region Laterality Modality Other Historical Provider HEALTH MAINTENANCE Final Result * Colonoscopy (10/04/2019) Colonoscopy performed Historical Provider HEALTH MAINTENANCE Edited Result - Final from Last 3 Months or Most Recently Relevant to Health Maintenance Insurance [facility] [place] [facility] DUAL COMPLETE DENTAL - [facility] Care Teams Loading Machine Operator Helper Relationship Specialty Start Date End Date Radha Bran MD [address] [place] [phone] PCP - General Family Medicine 10/16/20
--- OUTSIDE RECORDS SUMMARY | 2024-09-21 14:30 | XMS_ITS | Encounter Summary ---
Author Organization [employer] Address [address] [facility] 7t [place] [address] Care Team Providers Care Crankshaft Balancer Name Role Phone Radha Bran MD Primary Care Provider + Reason for Visit * Reason Onset Date Comments Durable Medical Equipment 10/08/2023 Encounter Details Date Type Department Care Team ([facility] st Contact Info) Description 10/08/2023 Telephone [facility] [address] [place] [address] Radha Bran MD [address] [place] [address] Durable Medical Equipment Social History Tobacco Use Types Packs/Day Years Used Date Smoking Tobacco: Never Passive Smoke Exposure: Never Smokeless Tobacco: Never Alcohol Use Standard Drinks/Week Comments Not Currently 0 (1 standard drink = 0.6 oz pur e alcohol) Housing Stability Answer Date Recorded What is [...] Answer Date Recorded Patient Health Questionnaire-2 Score 0 10/12/2023 Comments Unknown Sex and Gender Information Value Date Recorded Sex Assigned at Female 06/30/2022 10:14 AM EDT Legal Sex Female 10:14 AM EDT Gender Identity Female 06/30/2022 10:14 AM EDT Sexual Orientation Straight 06/30/2022 10 :14 AM EDT documented as of this encounter Miscellaneous Notes * Telephone Encounter - Zahra Hendrickson - 10/08/2023 12:02 PM EST Tc from pt requesting electric scooter. Pt stated if any questions contact Bunny Sow at [phone]. documented in this encounter Plan of Treatment Not on file documented as of this encounter Visit Diagnoses Not on filedocumented in this encounter Care Teams Crankshaft Balancer Relationship Specialty Start Date End Date Radha Bran MD [address] [place] [phone] PCP - General Family Medicine 10/16/20 documented as of this encounter
--- OUTSIDE RECORDS SUMMARY | 2024-09-21 14:30 | XMS_ITS | Encounter Summary ---
Author Organization [facility] Address [address] [place] [address] 7 [place] [address] Care Team Providers Care Wax Pumper Name Role Phone Radha Bran MD Primary Care Provider + Reason for Visit * Reason Onset Date Comments triage 11/17/2022 Encounter Details Date Type Department Care Team ([facility] st Contact Info) Description 11/17/2022 Telephone [facility] [address] [place], [place] [phone] Radha Bran MD [address] [place], [place] [phone] triage Social History Tobacco Use Types Packs/Day Years Used Date Smoking Tobacco: Never Smokeless Tobacco: Never Alcohol Use Standard Drinks/Week Comments Not Currently 0 (1 standard drink = 0.6 oz pur e alcohol) Depression Answer Date Recorded Patient Health Questionnaire-2 Score 1 09/24/2022 Comments Unknown Sex and Gender Information Value Date Recorded Sex Assigned at Female 06/30/2022 10:14 AM EDT Legal Sex Female 10:14 AM EDT Gender Identity Female 06/30/2022 10:14 AM EDT Sexual Orientation Straight 06/30/2022 10 :14 AM EDT COVID-19 Exposure Response Date Recorded In the last 10 days, have yo u been in contact with someone who was confirmed or suspected to have Coronavirus/COVID-19? No / Unsure 11/17/2022 4:55 PM EDT documented as of this encounter Miscellaneous Notes * Telephone Encounter - Alice Rodney RN - 11/17/2022 3:36 PM EDT Triage call with [place] [id number] Pt reports last Thursday , 11/12, Pt had some dizziness with some spinning sensation. Pt reports by it was better and today much better. Pt feels it was an anxiety attack that caused that. Pt is drinking 4 cups liquid per day and advised to increase liquids to 6-7 glasses/day and Pt agreed. Pt only drinks coffee one cup in the morning. Pt reports sleeps well until 4 AM and wakes up. Pt stays home and is able to do regular activities. Pt agrees with home care disposition and review of home care . [facility] is [facility] if needed to be seen by provider. Protocol Used: Anxiety and Panic Attack (Adult) Protocol-Based Disposition: Home Care Positive Triage Question: * Mild anxiety symptoms (e.g., Anxiety symptoms are mild and intermittent; symptoms do not interfere with daily activities) * All higher-acuity triage questions were negative Care Advice Discussed: * Note to Triager - Anxiety Symptoms * Note to Triager - Panic Attack * Reassurance and Education - Anxiety * Healthy Living Basics * Avoid Triggers of Anxiety * Avoid Caffeine * Stress Reduction * Reasons To Call Back - Anxiety or panic attacks continue - You feel like harming yourself - You become worse * Telephone Encounter - Donna Dick - 11/17/2022 2:44 PM EDT Symptom: Anxiety or Panic Attack Outcome: Schedule an appointment to be seen within 3 days Reason: No high acuity concerns reported by caller The caller accepted this outcome Please contact at [phone] [place] documented in this encounter Plan of Treatment Not on file documented as of this encounter Visit Diagnoses Not on filedocumented in this encounter Care Teams Wax Pumper Relationship Specialty Start Date End Date Radha Bran MD [address] [place] [phone] PCP - General Family Medicine 10/16/20 documented as of this encounter
--- OUTSIDE RECORDS SUMMARY | 2024-09-21 14:30 | XMS_ITS | Encounter Summary ---
Author Organization [employer] Address [address] [place] [address] 7 [place] [address] Care Team Providers Care Relay Mechanic Name Role Phone Radha Bran MD Primary Care Provider + Encounter Details Date Type Department Care Team ([facility] st Contact Info) Description 02/09/2023 [facility] Health Information Management [address] [place] [address] Radha Bran MD [address] [place] [address] Social History Tobacco Use Types Packs/Day Years [...] suspected to have Coronavirus/COVID-19? No / Unsure 01/20/2023 1:24 PM EDT documented as of this encounter Plan of Treatment Not on file documented as of this encounter Visit Diagnoses Not on filedocumented in this encounter Care Teams Relay Mechanic Relationship Specialty Start Date End Date Radha Bran MD [address] [place] [phone] PCP - General Family Medicine 10/16/20 documented as of this encounter
--- OUTSIDE RECORDS SUMMARY | 2024-09-21 14:30 | XMS_ITS | Encounter Summary ---
Author Organization [employer] Address [address] [facility] 7t [place] [address] Care Team Providers Care Improvement Coordinator Name Role Phone Radha Bran MD Primary Care Provider + Encounter Details Date Type Department Care Team (Late st Contact Info) Description 09/21/2024 Orders Only GENERIC EXTERNAL DATA DEPARTMENT Provider, Generic External Data Social History Tobacco Use Types Packs/Day Years [...] t he electric, gas, oil or water [place] threatened to shut off services in your [...] AM EDT documented as of this encounter Plan of Treatment Not on file documented as of this encounter Procedures Procedure Name Priority Date/Time Associated Diagnosis Comments GLUCOSE, WHOLE BLOOD Routine 09/21/2024 1:18 PM EST documented in this encounter Results * (ABNORMAL) Glucose, Whole Blood (09/21/2024 1:18 PM EST) Glucose, Whole Blood 170(H) 60 - 115 mg/dL [facility] Comment:METER #: [id number] 5Testing performed in the Endocrinology Department [address], [address], [facility]. 09/21/2024 1:18 PM EST 09/21/2024 1:22 PM EST us Generic External Data Provider LAB BLOOD ORDERAB LES Final Result [facility] [address] [place] [phone] documented in this encounter Visit Diagnoses Not on filedocumented in this encounter Additional Health Concerns Assessment Noted Time PHQ-9 Depression Total Score: 13 024 10:37 AM EST documented as of this encounter Care Teams Improvement Coordinator Relationship Specialty Start Date End Date Radha Bran MD [address] [place] [phone] PCP - General Family Medicine 10/16/20 documented as of this encounter
--- OUTSIDE RECORDS SUMMARY | 2024-09-21 14:30 | XMS_ITS | Encounter Summary ---
Author Organization [employer] Address [address] [place] [address] 7t [place] [address] Care Team Providers Care Watershed Program Manager Name Role Phone Radha Bran MD Primary Care Provider + Encounter Details Date Type Department Care Team ([facility] st Contact Info) Description 07/28/2022 Abstract [facility] MED[facility]INE [address] [place], [place] [phone] Provider, MD Britany Social History Tobacco Use Types Packs/Day Years Used Date Smoking Tobacco: Never Assessed Comments Unknown Sex and Gender Information Value [...] on filedocumented in this encounter Care Teams Watershed Program Manager Relationship Specialty Start Date End Date Radha Bran MD [address] [place] [address] PCP - General Family Medicine 10/16/20 documented as of this encounter
--- OUTSIDE RECORDS SUMMARY | 2024-09-21 14:30 | XMS_ITS | Encounter Summary ---
Author Organization [employer] Address [address] [facility] 7t [place] [address] Care Team Providers Care Spinning Frame Changer Name Role Phone Radha Bran MD Primary Care Provider + Encounter Details Date Type Department Care Team ([facility] st Contact Info) Description 08/25/2024 Orders Only [facility] MEDICINE [address] [place] [address] Radha Bran MD [address] [place] [address] Social History Tobacco Use Types Packs/Day Years [...] documented as of this encounter Care Teams Spinning Frame Changer Relationship Specialty Start Date End Date Radha Bran MD [address] [place] [phone] PCP - General Family Medicine 10/16/20 documented as of this encounter
--- OUTSIDE RECORDS SUMMARY | 2024-09-21 14:30 | XMS_ITS | Encounter Summary ---
Author Organization [employer] Address [address] [place] [address] 7 [place] [address] Care Team Providers Care Furniture Assembly Supervisor Name Role Phone Radha Bran MD Primary Care Provider + Reason for Visit * Reason Onset Date Comments Letter for School/Work 10/16/2022 Encounter Details Date Type Department Care Team ([facility] st Contact Info) Description 10/16/[address] [facility] MED[facility]INE [address] [place] [address] Radha Bran MD [address] [place] [address] Letter for School/Work Social History Tobacco Use Types Packs/Day Years [...] suspected to have Coronavirus/COVID-19? No / Unsure 09/24/2022 9:24 AM EST documented as of this encounter Miscellaneous Notes * Telephone Encounter - Elizabeth Egan - 10/16/2022 11:49 AM EST TC from pt regarding letter she has requested for housing . Per notations still trying to get provider signature. Please contact pt with any updates. documented in this encounter Plan of Treatment Not on file documented as of this encounter Visit Diagnoses Not on filedocumented in this encounter Care Teams Furniture Assembly Supervisor Relationship Specialty Start Date End Date Radha Bran MD [address] [place] [phone] PCP - General Family Medicine 10/16/20 documented as of this encounter
--- OUTSIDE RECORDS SUMMARY | 2024-09-21 14:30 | XMS_ITS | Encounter Summary ---
Author Organization [email or web address] Address [address] [place] [address] 7t [place] [address] Care Team Providers Care Managing Consultant Clinical Professor Name Role Phone Radha Bran MD Primary Care Provider + Encounter Details Date Type Department Care Team ([facility] st Contact Info) Description 08/06/2022 Telephone [facility] MEDICINE [address] [place] [address] Radha Bran MD [address] [place] [address] Social History Tobacco Use Types Packs/Day Years [...] on filedocumented in this encounter Care Teams Managing Consultant Clinical Professor Relationship Specialty Start Date End Date Radha Bran MD [address] [place], [place] [phone] PCP - General Family Medicine 10/16/20 documented as of this encounter
--- OUTSIDE RECORDS SUMMARY | 2024-09-21 14:30 | XMS_ITS | Encounter Summary ---
Author Organization [employer] Address [address] [place] [address] Care Team Providers Care Mud Engineer Name Role Phone Radha Bran MD Primary Care Provider + Encounter Details Date Type Department Care Team (Late st Contact Info) Description 08/24/2024 Orders Only GENERIC EXTERNAL DATA DEPARTMENT [...] t he electric, gas, oil or water Sprig threatened to shut off services in your [...] as of this encounter Miscellaneous Notes * Result Encounter Note - Radha Bran MD - 08/24/2024 12:57 AM EST Patient seen in the [facility] ED on 08/24/24 dx with Influenza, sxs [...] get worse. AP/ Please call back on Mon 08/29 to fu on sxs. Triage if needed or she can fu with me as schedulednext mo documented in this encounter Plan of Treatment Not on file documented as of this encounter Procedures Procedure Name Priority Date/Time Associated Diagnosis Comments XR CHEST 1 VIEW Routine 08/24/2024 12:50 AM EST INFLUENZA A B2 ID NOW (POLO) Routine 08/24/2024 12:37 AM EST COVID-19 ID NOW (POLO) Routine 08/24/2024 12:37 AM EST documented in this encounter Results * XR Chest 1 View (08/24/2024 12:50 AM EST) Anatomical Region Laterality Modality Chest Radiographic Mecca ging 08/24/2024 12:5 0 AM EST Narrative 08/24/2024 1:00 AM EST ? [facility] ?[address] ?[place] [address] ?XRay Report ? Signed ? Patient: Halley Sewell ?MR#: M ?? [id number] ? : 1950 ?Acct:[id number] ? Age/Sex: 74 / F ?ADM Date: 08/24/24 ? Loc: HO.ED ? Attending Dr: ? Ordering Physician: Generic ED Physician ?? Date of Service: 08/24/24 ?? Procedure(s): XR chest 1V ?? Accession Number(s): [id number] ? cc: Radha Bran MD; Generic ED [...] DD/ 0050 ? TD/TT: 08/24/24 0051 ? Napper Fixer: SS ? Procedure Note Pascale, Image - 08/24/[address] [address] XRay Report Signed Patient: Vicenta SewellIris#: M [id number] : 2Acct:[id number] Age/Sex: 74 / FADM Date: 08/24/24 Loc: HO.ED Attending Dr: Ordering Physician: Alfredo ED Physician Date of Service: 08/24/24 Procedure(s): XR chest 1V Accession Number(s): [id number] cc: Radha Bran MD; Generic ED Physician [...] Patrice Jones MD 08/24/2024 12:57 AM EST RP Dictated By: Patrice Jones MD Signed By: <Electronically signed by Patrice Jones MD in OV> 08/24/2456 DD/ TD/TT: 08/24/2450 Napper Fixer: SS [facility] External Provider IMG XR PROCEDURES Final Result * COVID-19 ID NOW (ShangPin) (08/24/2024 12:37 AM EST) IDNOW SERIAL# [id number] [facility] COVID-19 TEST Negative Negative [facility] COVID-19 NOTE See Note [facility] Comment: Results are for the identification of SARS-CoV2 RNA. TheSARS-CoV2 RNA is generally detectable in respiratory samplesduring the acute phase of infection. Positive results areindicative of the presence of SARS-CoV-2 RNA; clinicalcorrelation with patient history and other diagnosticinformation is necessary to determine patient infectionstatus. Positive results do not rule out bacterial infectionor co- infection with other viruses.Testing facilities within the [facility] and itsterritories are required to report all positive results [...] 7 AM EST 08/24/2024 12:43 AM EST Generic External Data Provider LAB MOLECULAR SONIA GNOSTICS ORDERABLES Final Result Performing Organization Address [facility] Co de Phone Number [facility] [address] [place] [phone] * (ABNORMAL) Influenza A B2 ID NOW (Polo) (08/24/2024 12:37 AM EST) IDNOW SERIAL# [id number] [facility] Influenza A Positive(A) Negative [facility] Influenza B2 Negative Negative [facility] Influenza A B2 Note See Note [facility] Comment:The Polo ID NOW In fluenza [...] 7 AM EST 08/24/2024 12:43 AM EST Generic External Data Provider LAB MICROBIOLOGY - GENERAL ORDERABLES Final Result Performing Organization Address [facility] Co de Phone Number [facility] [address] [place] [phone] documented in this encounter Visit Diagnoses Not on filedocumented in this encounter Additional Health Concerns Assessment Noted Time PHQ-9 Depression Total Score: 13 10/27/2 024 10:37 AM EST documented as of this encounter Care Teams Mud Engineer Relationship Specialty Start Date End Date Radha Bran MD [address] [place] [phone] PCP - General Family Medicine 10/16/20 documented as of this encounter
--- OUTSIDE RECORDS SUMMARY | 2024-09-21 14:31 | XMS_ITS ---
Author Name Maribel Vann NP Address [address] [place] [address] Phone [phone] [facility] Care Team Providers Care Gas Line Installer Name Role Phone Maribel Vann Unavailable [phone] [facility] Unavailable [place], [facility] Unavailable [phone] [place]/[facility] [place] Unavailable Unavailable Unavailable [phone] Unavailable Unavailable [phone] [employer] Unavailable [phone] Unavailable Unavailable Unavailable Pedro Mohamud Unavailable [phone] Radha Bran Unavailable [phone] Reason for Referral Not Available Allergies, adverse [...] Available B-D KURTIS 2ND GEN PEN NDL [id number] USE TO INJECT FOUR TIMES DAILY 2022-08-28 [...] Data Available 2023-06-03 No D aries Available PE INTERNATIONALTouch Verio Flex System w/Device Kit USE TO [...] 2024-04-21 No Data Available FreeStyle Walter 2 [place] Device 1 q 2 weeks 2024-04-21 No Data Available Fexofenadine 180 mg Tab 1 tablet orally one time a day 2024-04-21 No Data Available [place] Nasal [place] 0.65 % Solution Nasal 2 sprays intranasally [...] 75 mg Tab Take 1 tablet by [facility] daily 2023-12-04 No Data Available CALCIUM 600D [...] 20 mg Tab TAKE 1 TABLET BY [facility] DAILY FOR 4 DAYS 2024-04-30 No Data [...] Active 2023-07-15 N/A Other [facility] and other [facility] care Active 2023-09-18 [...] Active 2023-02-06 N/A Other problems related to or dical facilities and other health care Active 2024-05-03 N/A History of recent hospitalization for Influenza Active 2024-08-26 N/A Encounters Encounters Type Facility Date of Service Diagnosis/Co mplaint No Data Available [facility] Morbid (severe) obesity due to excess caloriesBody mass index (BMI) 40.0-44.9, adultType 2 diabetes w unsp diabetic retinopathy w macular edemaMajor depressive disorder, recurrent, mildIron deficiency anemia, unspecifiedUnspecified urinary incontinenceUnspecified asthma, uncomplicatedObstructive sleep apnea (adult) (pediatric)2-part nondisp fx of surg nk of melecio luna, 7thDEssential (primary) hypertensionHistory of fallingDifficulty in walking, not elsewhere classified No Data Available [facility] [place]2023 No Data Available [facility] [place]2023 No Data Available [facility] [place]2023 No Data Available [facility] [place]2023 No Data Available [facility] [place] No Data Available [facility] [place]2023 Estab. patient 20-29min; 1 stable chronic or 2 minor; add add modifier 95 for video, modifier 93 for phone [facility] [place] 05[place]06/2023 Type 2 diabetes w unsp diabe [...] 95 for video, modifier 93 for phone [facility] [place]20[place] Estab. patient 20-29min; 1 stable chronic or 2 minor; add add modifier 95 for video, modifier 93 for phone [facility] [place]20[place] Estab. patient 20-29min; 1 stable chronic or 2 minor; add add modifier 95 for video, modifier 93 for phone [facility] [place] 05[place]2023 No Data Available [facility] [place]2023 History of fallingDifficulty in walking, not elsewhere classified No Data Available [facility] [place]2023 No Data Available [facility] [place]2023 History of fallingDifficulty in walking, not elsewhere classifiedPersonal history of (healed) traumatic fracture No Data Available [facility] [place]2023 No Data Available [facility] [place]2023 No Data Available [facility] [place]2023 No Data Available [facility] [place]2023 Difficulty in walking, not elsewhere classifiedHistory of fallingPersonal history of (healed) traumatic fracture No Data Available [facility] [place] Estab. patient 30-39min; chronic exacerbation, 2 stable chronic or 1 acute illness add add modifier 95 for video, (do not use for phone, instead use 04235-96) [facility] [place]23 Morbid (severe) obesity due [...] (do not use for phone, instead use 27699-60) [facility] [place] Estab. patient 30-39min; chronic exacerbation, 2 stable chronic or 1 acute illness add add modifier 95 for video, (do not use for phone, instead use 82178-28) [facility] [place]/2023 Estab. patient 30-39min; chronic exacerbation, 2 stable chronic or 1 acute illness add add modifier 95 for video, (do not use for phone, instead use 35980-70) [facility] [place]2023 Estab. patient 30-39min; chronic exacerbation, 2 stable chronic or 1 acute illness add add modifier 95 for video, (do not use for phone, instead use 19385-94) [facility] [place] 07[place]2023 No Data Available [facility] [place] 08[place]/2023 Morbid (severe) obesity due to excess caloriesBariatric surgery statusUnspecified asthma, uncomplicatedHistory of fallingDifficulty in walking, not elsewhere classifiedPersonal history of (healed) traumatic fracture No Data Available [facility] [place] 08/14/2023 No Data Available [facility] [place] 09/[place]/2023 Urinary tract infection, sit e not specified No Data Available [facility] [place]10/2023 Urinary tract infection, sit e not specifiedHistory of fallingDifficulty in walking, not elsewhere classifiedPersonal history of (healed) traumatic fracture No Data Available [facility] [place] 09/10/2023 Estab. patient 30-39min; chronic exacerbation, 2 stable chronic or 1 acute illness add add modifier 95 for video, (do not use for phone, instead use 00379-40) [facility] [place] 09/18/2023 Urinary tract infection, sit e not [...] (do not use for phone, instead use 01179-79) [facility] [place]18[place]2023 Estab. patient 30-39min; chronic exacerbation, 2 stable chronic or 1 acute illness add add modifier 95 for video, (do not use for phone, instead use 25113-93) [facility] [place] 09/18/2023 Estab. patient 30-39min; chronic exacerbation, 2 stable chronic or 1 acute illness add add modifier 95 for video, (do not use for phone, instead use 08489-63) [facility] [place] 09/18/2023 Estab. patient 30-39min; chronic exacerbation, 2 stable chronic or 1 acute illness add add modifier 95 for video, (do not use for phone, instead use 68620-13) [facility] [place] 09[place]18/2023 Estab. patient 30-39min; chronic exacerbation, 2 stable chronic or 1 acute illness add add modifier 95 for video, (do not use for phone, instead use 96196-61) [facility] [place] 09/18/2023 Estab. patient 30-39min; chronic exacerbation, 2 stable chronic or 1 acute illness add add modifier 95 for video, (do not use for phone, instead use 61303-16) [facility] [place] 09/18/2023 Estab. patient 30-39min; chronic exacerbation, 2 stable chronic or 1 acute illness add add modifier 95 for video, (do not use for phone, instead use 32238-06) [facility] [place] 09[place]18/2023 Estab. patient 30-39min; chronic exacerbation, 2 stable chronic or 1 acute illness add add modifier 95 for video, (do not use for phone, instead use 65462-36) [facility] [place]20[place] No Data Available [facility] [place] Morbid (severe) obesity due to excess caloriesBariatric surgery statusType 2 diabetes w unsp diabetic retinopathy w macular edemaUnspecified urinary incontinenceUnspecified asthma, uncomplicatedObstructive sleep apnea (adult) (pediatric)Essential (primary) hypertensionBody mass index (BMI) 40.0-44.9, adultMajor depressive disorder, recurrent, mildOther problems related to medical facilities and other health careHeadache, unspecifiedOther chronic pain No Data Available [facility] [place] No Data Available [facility] [place] No Data Available [facility] [place]20[place] No Data Available [facility] [place] No Data Available [facility] [place] No Data Available [facility] [place]20[place] No Data Available [facility] [place]/2024 Type 2 diabetes w unsp diabe tic retinopathy w macular edemaAllergic contact dermatitis due to plants, except foodEncounter for other specified aftercareOther problems related to medical facilities and other health careLong term (current) use of insulin No Data Available [facility] [place]2024 No Data Available [facility] [place]2024 Flu due to unidentified influenza virus w oth resp manifestPersons encountering health services in other specified circumstancesOther problems related to medical facilities and other health care No Data Available [facility] [place]/2024 No Data Available [facility] [place]2024 Vital Signs Date of [...] date Servicing provider Phone# No Data Available [id number] 2023-04-09 No Data Available No Data Available [...] 95 for video, modifier 93 for phone [id number] 2023-05-06 No Data Available No Data Availa [...] No Data Carli ilable No Data Available [id number] 2023-06-15 No Data Available No Data Available [...] (do not use for phone, instead use 02420-68) [id number] 2023-07-15 No Data Available No Data Availa [...] No Data Carli ilable No Data Available [id number] 2023-09-09 No Data Available No Data Available No Data Available 2023-09-10 No Data Available No Data Available Medication List Documented (1159F) 1159F 2023-09-10 No Data Available No Data Carli ilable Estab. patient 30-39min; chronic exacerbation, 2 stable chronic or 1 acute illness add add modifier 95 for video, (do not use for phone, instead use 21928-64) [id number] 2023-09-18 No Data Available No Data Availa [...] No Data Avail able No Data Available [id number] 2024-04-21 No Data Available No Data Available [...] le No Data Available No Data Available [id number] 2024-05-03 No Data Available No Data Available Medication List Documented (1159F) 1159F 2024-05-03 No Data Available No Data Carli ilable No Data Available [id number] 2024-08-26 No Data Available No Data Available [...] Patient Education to avoid future hospitalization: Call [facility] if symptoms of illness develop.Morbid (severe) obesity [...] Patient Education to avoid future hospitalization: Call [facility] if symptoms of illness develop.History of recent [...] units TID AC meals and FU with grain roaster in February,Wears rafaela paduses inhaler Flovent BIDHas [...] units TID AC meals and FU with grain roaster in February,Wears rafaela padNeeds chux pads, XL pull-ups, gloves XLuses inhaler Flovent BIDHas CPAP using nightlyContinue lovenox as directedAdvancing home PTencouraged UE activity as toleratedHas not been taking BP medication since surgery 2 months ago on broken footApril 2022 had a bad fall on steps at entrance to home. Fractured L foot, L?knee, L shoulderStill unable to walkUsing wheelchairNow having PT [facility] Jovanny think about whether she wants a therapist 2023-06-15 13:39:58 Phone (patient, pare nt, or guardian); 5-10 minutes of medical discussion (no modifier 95)Continue to see PCP. Follow-up with Tran as needed for any acute or disease education needs that may arise 23/03.November 2022 had a bad fall on steps at entrance to home. Fractured L foot, L?knee, L shoulderStill unable to walkUsing qscevffcvw19/16/2023er son, can only walk very short distances [...] unable to walkUsing wheelchairNow having PT at [facility]06/15/2023er son, can only walk very short [...] and we need videocall. Tablet needs a zinc furnace charger, will send and schedule videocall for next [...] unable to walkUsing wheelchairNow having PT at [facility]3Per son, can only walk very short [...] to PT but after she returns from MD in .Can start in October. 2023-08-14 12:38:06 [...] unable to walkUsing wheelchairNow having PT at [facility]06/15/2023er son, can only walk very short [...] and we need videocall. Tablet needs a zinc furnace charger, will send and schedule videocall for next [...] 09/10/23.UPDATE 09/10/2023t has not yet gone to moss picker prescription. Feels about the same. Education about [...] 09/10/23.UPDATE 09/10/2023t has not yet gone to moss picker prescription. Feels about the same. Education about [...] unable to walkUsing wheelchairNow having PT at [facility]3Per son, can only walk very short [...] and we need videocall. Tablet needs a zinc furnace charger, will send and schedule videocall for next [...] units TID AC meals and FU with grain roaster Reports stableWears rafaela padNeeds chux pads, XL pull-ups, gloves XLuses inhaler Flovent BIDHas CPAP using nightlyContinue lovenox as directedAdvancing home PTencouraged UE activity as toleratedHas not been taking BP medication aftersurgery on broken footUPDATE 4Reports compliance nowApril 2022 had a bad fall on steps at entrance to home. Fractured L lower leg, L shoulderStill unable to walkUsing wheelchairNow having PT at [facility]3Per son, can only walk very short [...] and we need videocall. Tablet needs a zinc furnace charger, will send and schedule videocall for next [...] 09/10/23.UPDATE 09/10/2023t has not yet gone to moss picker prescription. Feels about the same. Education about [...] individual diagnosis for contingency plan.pre[facility] 2024-04-21 09:19:41 Phone (patient, pare [...] units TID AC meals and FU with grain roaster Reports stableWears rafaela padNeeds chux pads, XL [...] modifier 95)Continue to see PCP. Follow-up with [facility] as needed for any acute or disease [...] thinking about going to the ER? ResolvedNext KAL scheduled appt/call: Patient education provided: Krysta bailey call us if similar situation arises in future. Avoid this plant in the futureHow else can we help? Refill (See DM)Member trained on use of ? Red Button? for urgent needs and provided with KAL phone # as an alternative method to [...]
== END 2024-09-21 13:41 | disposition home or self-care (01) ==
PROVIDERS: PCP Internal Medicine; Visit Provider Nurse Practitioner Adult Health
DX: E11.9 Type 2 diabetes mellitus without complications (principal)
CPT/HCPCS: 99214

== ENCOUNTER → 2024-09-21 12:42 | Outpatient (BNVA) | payer OTHER, SELFPAY | PROVIDERS: PCP Internal Medicine; Visit Provider Nurse Practitioner Adult Health | DX: E11.9 Type 2 diabetes mellitus without complications (principal) | CPT/HCPCS: 82947; 83036; 99212 ==

== ENCOUNTER 2024-11-02 13:08 | Outpatient (AMB) | payer OTHER, SELFPAY ==
--- NOTE | 2024-11-02 08:22 | A.OFFVIS_ITS ---
Vital Signs 11/02/24 13:15 Height 5 ft 2 in Weight 235 lb 14.314 oz BMI 43.1 BP 138/72 Blood Pressure Location Rt brachial Position Sitting Pulse 71 Pulse Source Pulse Oximeter Pulse Oximetry (%) 96 Oxygen Delivery Method Room Air Intake Visit Reasons: T2DM Intake Note: Patient presents today for a follow-up on Type 2 Diabetes Mellitus: Last Diabetic eye exam was on: 07/31/2024, Getting monthly Eye Shots Last Podiatry exam was on: Patient does not see a Community Mental Health Social Worker Most recent HbA1c: 8.6%, 09/21/2024 Random Glucose- 145 mg/dL, Today Family Readiness Support Assistant Required: Yes Family Readiness Support Assistant Language: Shank Inspector Services: Family Readiness Support Assistant Present [facility] Readiness Support [facility] Accompanied by: Self / Same As Patient Allergies seasonal Allergy (Intermediate, Uncoded 11/02/24 13:15) cough HPI Comments Details: Patient is 74-year-old female with DM type 2 diagnosed 1993 who presents for management of diabetes. She was last seen in endo Clinic 09/21/2024 hemoglobin A1c 09/21/2024 8.6%. 01/21/24 9.3% A1c several years ago was 6.6% when she was using the Cequr device (insulin patch pump). She will be retrained on this, At her previous visit Mounjaro was increased along with the titration of her bolus insulin. Previous medication: Synjardy XR 25/1,000 not taking because can't tolerate nausea.Intolerant of regular metformin due to diarrhea Diabetes medications: Lantus 24 units Humalog 8 units Ac tid before meal Mounjaro 5.0 weekly Freestyle itzel sensor 3 average glucose: 161 14 day continuous glucose sensor report reviewed Glucose Management indicator 7.2 % Time CGM active [ ] % TIme in ranges: Seven % very high (above 250) 28 % high (181-250) 65 % in range (70-180] 0 % low (69-55) 0 % very low (below 54) 34%Glucose variability (target <36%) Interpretation of CGMS [ readings slightly above target she had a few lows not picked up on sensor] Positive Retinopathy: Last diabetic eye exam; 08/23 getting anti-VGEF therapy she has a follow up appointment with opth scheduled No neuropathy: Symptoms reported: denies numbness, tingling, cramping in lower extremities Podiatry: Does not see Has nephropathy followed by Nephrology Dr. Olivares at [facility] [place] microalbumin Hypoglycemia: denies Hyperglycemia: + urinary frequency, + nocturia, denies polydypsia Diet has not been balanced she has a history of sleeve in 2019 Exercise: has not been walking. 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 Meal plan prescribed: Breakfast- premier premade shake Lunch- meal delivery, choose protein and veg Dinner- Pure Protein bar She had difficulty following this plan but is working on reducing portions. [facility] Medical History (Updated 11/02/24 @ 13:25 by Breanna Walters NP) Type 2 diabetes mellitus Panic attack Anxiety Obesity due to excess calories Asthma REY (obstructive sleep apnea) Morbid obesity Vitamin D deficiency Obesity Dyslipidemia Hypertension Diabetic polyneuropathy associated with type 2 diabetes mellitus Diabetes type 2, uncontrolled Surgical History Abdominal pain History of carpal tunnel release S/P trigger finger release H/O foot surgery History of dilatation and curettage History of sleeve gastrectomy History of esophagogastroduodenoscopy (EGD) History of eyelid surgery Hx of tubal ligation Hx of colonoscopy Family History Father Type II diabetes mellitus Obesity Mother HTN (hypertension) Brother Cancer Social History Household Members: Spouse Housing: Apartment Do you presently have visiting nurse or other home services: Yes Alcohol intake: never Patient Tobacco Use Status: Former Tobacco user Tobacco use type: Cigarette e-Cigarette/Vaping Use: Never Used service: No Current occupational status: unemployed Current occupation: rt handed Physical Exam Vital Signs: Last Vital Signs Pulse 71 11/02/24 13:15 BP 138/72 11/02/24 13:15 Pulse Ox 96 11/02/24 13:15 Oxygen Delivery Method Room Air 11/02/24 13:15 BMI result Body Mass Index 43.1 Const Other: Absence of Cushingoid features. Absence of acromegalic features. Heart S1 S2, Reg R/R. No M/R G. Skin exam reveals absence of vitiligo or acanthosis nigricans. Visual exam of foot performed. No ulcerations or open lesions. No inter digit maceration or fissuring. No onychomycosis, no callouses. Sensation intact to monofilament exam. Vibratory sensation is normal with 128 Hz tuning fork. Results Reviewed Results Reviewed: Laboratory Last Values Glucose (Clinic) 145 mg/dL (60-115) H 11/02/24 13:25 Assessment & Plan Assessment & Plan (1) Type 2 diabetes mellitus: Code(s): E11.9 - Type 2 diabetes mellitus without complications Category: Medical Plan: 74-year-old type 2 diabetic with nephropathy followed by Nephrology and neuropathy with improving glycemic control. Sensor reading 161 average. Will reduce meal insulin to 6 units and increase mounjaro to 7.5mg. She is having no symptoms on the 5 mg. She was advised that she may need a further reduction in her insulin when she starts 7.5 and to call our office as needed. She was advised to carry a sugar source at all time and sick day management was reviewed. She was asked to add 5 minutes of walking in the evening The patient had an opportunity to ask questions regarding treatment plan. The patient expressed understanding and agreement with the above treatment plan. The patient is aware they should contact our office by phone for worsening glucose readings or for any low blood sugars which may warrant a change in diabetes medication. Compliance is encouraged with medications and any followup testing/consults which may have been ordered. Patient Instructions: The patient was counseled to achieve a target A1C of 7% (154 avg). Fasting blood sugars should be 90-130 in the morning and less than 180 two hours after meals. Reviewed the relationship between poor diabetic control and the development of complications. Check your feet daily looking for any signs of infection, drainage, redness, ulceration and seek medical attention if this occurs. Break in shoes gradually and do not wear open-toed shoes or walk stocking footed or barefooted. Sick day management reviewed Take 15 carb carbohydrate grams to treat a low sugar (3-4 glucose tablets, half a glass of juice or 15 carbohydrate grams of soft candy such as gummie snacks). Recheck your sugar in 15 minutes and re-treat again with 15 carbohydrate grams if low or still with symptoms. Do not drive a car or operate machinery if you do not know what your blood sugar is, if it is low or in excess of 300. Coding Level of Care Code Est Pt Level 4 (83804) Complex EM visit Add On G2211 Diagnoses Type 2 diabetes mellitus E11.9 Time Spent (min) 30 Comment Time spent reviewing labs/provider notes, glucose,sensor reports, face to face, chart doc
[2024-11-02 13:15] VITALS: BP 138/72; PULSE 71; O2SAT 96; BMI 43.1
[2024-11-02 13:30] LABS: Glucose, Whole Blood 145 mg/dL (60-115)
--- OUTSIDE RECORDS SUMMARY | 2024-11-02 15:37 | XMS_ITS | Data Portability ---
Author Organization [facility]Room [facility] [place] [facility] - [facility] Address [address] [place] [id number] Care Team Providers Care Pals Specialist Name Role Phone [facility] Referring Provider [phone] [facility] Referring Provider Assessment Encounter Date Assessment Date Assessment LastModified by Organization Details LastModified Time 03/17/2022 03/17/2022 I have reviewed and agree with the Assessment and Plan as documented by the Sea Captain. I provided real -time medical direction via phone for this encounter, and was available for additional phone based assistance as needed. Patient given the opportunity to ask questions. Pat has multiple risk factors for CAD: obesity/ HTN/ DM/REY/ she is middle aged and female - these patients can have atypical cardiac CP- although EKG has minimal changes she needs cardiac w/u to r/o ACS- best accomplished emergently in the ED. d/w patient- she is agreeable to go to the ER- report called to [facility] [email or web address] Not available 03/18/2022 21:31:13 Plan of Treatment Reminders Order Date Submit Date Provider Last Modified By Organization Details Last Modified Time Details Appointments None recorded. Lab None recorded. Referral None recorded. Procedures None recorded. Surgeries None recorded. Imaging electrocard iogram 2021 022 [email or web address] 0 [facility], [address] [place] [address], [phone], 21:32:45 Medication Orders None recorded. Patient TargetsNo targets recorded. Patient InstructionsNo instructions recorded. Reason for Referral None Reported. Results Created Date Observation Date Name Description Value Unit Range Abnormal Flag Note LastModifiedBy Organization Detail LastModifiedTime 03/18/20 22 03/18/2022 elect doug dupontgr am No observ ation record ed. [email or web address] [address], [phone], 03/18/2022 21:32:33 Result Notes None recorded. Procedures Surgical History None recorded. Imaging Results Imaging Date Name Status LastModified by Organization Details LastModified Time 03/18/2022 electrocardiogram completed [address], [place], [phone], 03/18/2022 21:32:33 Procedure Notes None recorded. Medical Equipment None Reported. Allergies No known drug allergies Medications Name Sig Start Date Stop Date Status Note LastModified by Organization Details LastModified Time terconazole 0.4 % vaginal cream INSERT 1 APPLICATORF UL VAGINALLY EVERYDAY FOR 7 DAYS AT BEDTIME active Not Available Not Available N ot Available atorvastatin 80 mg tablet TAKE 1 TABLET BY MOUTH AT BEDTIME active Not Available Not Available No t Available doxycycline hyclate 100 mg capsule TAKE 1 CAPSULE BY MOUTH TWICE DAILY active Not Available Not Available No t Available cetirizine 10 mg tablet TAKE 1 TABLET BY MOUTH DAILY NEEDED FOR NASAL CONGESTION active Not Available Not Available N ot Available simethicone 180 mg capsule TAKE 1 CAPSULE BY MOUTH THREE TIMES DAILY WITH MEALS active Not Available Not Available N ot Available fluconazole 150 mg tablet TAKE 1 TABLET BY MOUTH 1 TIME. REPEAT AFTER 72 HOURS active Not Available Not Available No t Available hydrocodone 5 mg-acetamino phen 325 mg tablet TAKE 1 TABLET BY MOUTH EVERY 4 TO 6 HOURS NEEDED FOR PAIN active Not Available Not Available No t Available FreeStyle Lancets 28 gauge USE DIRECTED THREE TIMES DAILY active Not Available Not Available No t Available phenazopyrid ine 200 mg tablet TAKE 1 TABLET BY MOUTH THREE TIMES DAILY NEEDED FOR DISCOMFORT WITH URINATION active Not Available Not Available No t Available metronidazol e 500 mg tablet TAKE 1 TABLET BY MOUTH EVERY 12 HOURS active Not Available Not Available No t Available omeprazole 40 mg capsule,estevan yed release TAKE 1 CAPSULE BY MOUTH EVERY DAY BEFORE A MEAL active Not Available Not Available No t Available betamethason e valerate 0.1 % topical cream APPLY THIN LAYER TOPICALLY TO THE AFFECTED AREA EVERY DAY active Not Available Not Available No t Available meclizine 25 mg tablet TAKE 1 TABLET BY MOUTH THREE TIMES DAILY NEEDED FOR DIZZINESS active Not Available Not Available No t Available benzonatate 100 mg capsule TAKE 1 CAPSULE BY MOUTH THREE TIMES DAILY NEEDED FOR COUGH active Not Available Not Available No t Available pantoprazole 40 mg tablet,delay ed release TAKE 1 TABLET BY MOUTH DAILY active Not Available Not Available Not Available docusate sodium 100 mg capsule TAKE ONE CAPSULE BY MOUTH EVERY DAY WITH FOOD active Not Available Not Available No t Available alcohol swabs DIRECTED TWICE DAILY active Not Available Not Available Not Available gabapentin 100 mg capsule TAKE 1 CAPSULE BY MOUTH TWICE DAILY active Not Available Not Available No t Available ergocalcifer ol (vitamin D2) 1,250 mcg (50,000 unit) capsule TAKE 1 CAPSULE BY MOUTH EVERY WEEK active Not Available Not Available No t Available albuterol sulfate HFA 90 mcg/actuatio n aerosol inhaler INHALE 2 PUFFS BY MOUTH FOUR TIMES DAILY NEEDED active Not Available Not Available No t Available fluticasone propionate 50 mcg/actuatio n nasal spray,suspen joseline SHAKE LIQUID AND USE 2 SPRAYS IN EACH NOSTRIL EVERY DAY active Not Available Not Available No t Available amoxicillin 875 mg-potassium clavulanate 125 mg tablet TAKE 1 TABLET BY MOUTH EVERY 12 HOURS active Not Available Not Available No t Available escitalopram 20 mg tablet active Not Available Not Available Not Available Clotrimazole -3 2 % vaginal cream APPLY 1 UNIT VAGINALLY DAILY AT BEDTIME FOR 3 DAYS active Not Available Not Available No t Available rosuvastatin 40 mg tablet TAKE 1 TABLET BY MOUTH DAILY active Not Available Not Available Not Available nitrofuranto in monohydrate/ macrocrystal s 100 mg capsule TAKE 1 CAPSULE BY MOUTH EVERY 12 HOURS FOR 5 DAYS. MUST ADMINISTER WITH A MEAL/FOOD active Not Available Not Available No t Available Flovent HFA 220 mcg/actuatio n aerosol inhaler INHALE 2 PUFFS BY MOUTH TWICE DAILY. RINSE MOUTH AFTER USE. active Not Available Not Available N ot Available calcium 600 mg (as carbonate)-v itamin D3 10 mcg (400 unit) tablet TAKE 1 TABLET BY MOUTH TWICE DAILY active Not Available Not Available No t Available FreeStyle Lite Meter kit USE DIRECTED TO TEST BLOOD SUGAR THREE TIMES DAILY active Not Available Not Available Not Available FreeStyle Lite Strips USE TO CHECK BLOOD GLUCOSE THREE TIMES DAILY DIRECTED active Not Available Not Available No t Available blood pressure test kit-large cuff USE DIRECTED active Not Available Not Available No t Available Trulicity 0.75 mg/0.5 mL subcutaneous pen injector ADMINISTER 0.75 MG UNDER THE SKIN EVERY WEEK active Not Available Not Available No t Available Synjardy XR 25 mg-1,000 mg tablet, extended release TAKE 1 TABLET BY MOUTH DAILY active Not Available Not Available Not Available Vitals Date Recorded Body weight Body height Body temperature Oxygen saturation Oxygen saturation in Arterial blood by Pulse oximetry Respiratory rate Heart rate Systolic blood pressure Diastolic blood pressure Provider Name and Address Organization Details Last Updated DateTime 2 479154. 2 g 157.48 cm 97.8 [degF] 97 % 97 % 16 /min 78 /min 166 mm[Hg] 93 mm[Hg] Not Available [facility] - production 2 18:47:13 Social History None recorded. Functional Status None recorded. Mental Status None recorded. Family History Nothing Reported. Medical History No medical history recorded. Gynecological HistoryNo gynecological history recorded. Obstetrics History GPAL:G 0 P 0 0 0 0 Past Encounters Encounter ID Performer Location Encounter Start Date Encounter Closed Date Diagnosis/Indication Diagnosis SNOMED-CT Code Diagnosis ICD10 Code Diagnosis Note [id number] Chelsea Hernandez MD Main - [facility] [address] [place] [phone] 03/17/2022 16:53:01 05/13/2022 21:10:03 Chest pain 46290094 R07.9 Health Concerns Section Related Observation LastModified by Organization Detai ls LastModified Time None Recorded Concern Status LastModified by Organization Details LastModified Time None Recorded Advance Directives Directive None Recorded Payers Encounter Date Sequence Insurance Name Policy Number Policy Wagner Covered Member ID Wagner Member ID Guarantor Name 03/17/2022 1 [facility] - DOS PRIOR TO 2022 - DUAL ELIGIBLE (MEDICARE REPLACEMENT/ADV ANTAGE - HMO) Halley Ramon [id number] Halley Ramon Notes Date Note Type Note Provider Name and Address Organization Details Recorded Time 03/17/2022 text/html HPI: ALLERGIC TO: ESCITALOPRAM OXALATE Patient with history of REY, Panic attacks. Seen and evaluated 03/06/22 CXR and EKG negative at that time. Continues with neck pain. Shortness of breath described as feeling like she has to force a yawn. On medication Lexapro as listed as allergy with CARIAS as symptoms. Advised to continue 20 mg daily dose. Covid testing at that time negative. ................... ................... ................... ................... ................... ................... ................... ........ CRC Nursing Assessment: Comments: CRC RN DID NOT NEED FURTHER Info to PROCESS VISIT ................... ................... ................... ................... ................... ................... ................... ........ Sea Captain Note: Sent to a call for a pt complaining of chest pain and sob. [employer] arrives on scene, pt arrives home in a van. Pt is alert and oriented. Airway is patent. Software Computer Specialist line used for communication as pt's primary language is [place]. Pt complains of left lateral neck pain with headache starting approx 2 weeks ago. Pt then complains of bilateral chest pain radiating to back, worsening with inspiration and slight increase with palpation. Pt was given doxycycline and Amox-Clav for possible lung infection, but pt reports no change in condition. BP:166/93, P:78, RR:16, SpO2:97% RA, T:97.8; Lung sounds: clear bilaterally; Pt denies dizziness, n/v/d, abd pain, fever/chills or loc. [facility] orders [facility] lead ECG. [facility] advises pt to be transported to ED for further evaluation/treatmen t. Pt agrees. Pt care is transferred to [facility]. Pt transported to [facility]. ................... ................... ................... ................... ................... ................... ................... ........ Disposition: FulfilledSEGMD- as above-Pat seen at [facility] 03/06/22- was having neck pain and headache at the time-denied having CP or telling staff she had CP.- that started more recently. She finished the antibiotics- was also given albuterol, but she did not use it as it was making her nervous/ shakey//has minimal cough- clear phlegm. She reports she sees a before school babysitter, but does not know her cardiac dx. Has hx obesity/ DM/ HTN/REY / panic d/o per old record. Quit smoking > 35 yrs ago- pat reports no known family hx CAD. Chelsea Hernandez MD [address] [facility],[address], [place], [phone], [employer] [facility] 03/18/2022 21:32:58 OBGyn Episode No OBEpisode recorded.
--- OUTSIDE RECORDS SUMMARY | 2024-11-02 15:37 | XMS_ITS ---
Author Name Maribel Vann NP Address [address] [place] [address] Phone [phone] [facility] Care Team Providers Care Ironworker Name Role Phone Maribel Vann Unavailable [phone] [facility] Unavailable [place], [facility] Unavailable [phone] [place]/Al Ruiz [place] Unavailable [phone] Unavailable Unavailable [phone] Unavailable Unavailable [phone] [employer] Unavailable [phone] Pedro Mohamud Unavailable [phone] Radha Bran Unavailable [phone] Reason for Referral Not Available Allergies, adverse reactions, alerts No known allergies History of medication use Medication Class Instructions Start Date End Date Fluocinolone Acetonide Body 0.01 % Oil APPLY BOTTLE TOPICALLY TO THE AFFECTED AREA IN THE MORNING 2022-08-13 No Data Available B-D KURTIS 2ND GEN PEN NDL [id number] USE TO INJECT FOUR TIMES DAILY 2022-08-28 No Data Available Diclofenac Sodium 1 % Gel No Data Available 2022-08-28 No Data Available Insulin Lispro (1 Unit Dial) 100 UNIT/ML Solution Pen-injector Subcutaneous ADMINISTER 6 UNITS UNDER THE SKIN THREE TIMES DAILY 2022-08-28 No Data Available Lantus SoloStar 100 UNIT/ML Solution Pen-injector Subcutaneous INJECT 24 UNITS UNDER THE SKIN AT BEDTIME 2022-08-28 No Data Available Escitalopram Oxalate 20 mg Tab 1 tablet orally daily 2021-10-23 No Data Available Omeprazole 40 mg Cap delayed rel 1 tablet daily 2022-10-10 No Data Available Simethicone Ultra Strength 180 mg Cap TAKE 1 CAPSULE BY MOUTH THREE TIMES DAILY WITH MEALS 2022-10-10 No Data Available Gabapentin 100 mg Cap 1 capsule orally d aily at bedtime 2022-10-10 No Data Available Rosuvastatin Calcium 40 mg Tab TAKE 1 TABLET BY MOUTH DAILY 2022-11-19 No Data Available [...] Data Available 2023-06-03 No D aries Available LayarTouch Verio Flex System w/Device Kit USE TO [...] 2024-04-21 No Data Available FreeStyle Walter 2 Sensor Miscellaneous 1 q 2 weeks 2024-04-21 No Data Available Fexofenadine 180 mg Tab 1 tablet orally one time a day 2024-04-21 No Data Available [place] Nasal [place] 0.65 % Solution Nasal 2 sprays intranasally every 2 hours in each nostril as needed 2024-04-21 No Data Available hydrOXYzine Pamoate 25 mg Cap 1 capsule orally every 8 hours as needed anxiety 2023-10-27 No Data Available Mounjaro 2.5 mg/0.5ML Solution Pen-injector ADMINISTER 2.5 MG UNDER THE SKIN EVERY WEEK FOR 4 WEEKS 2023-11-04 No Data Available Irbesartan 75 mg Tab Take 1 tablet by mo [facility] daily 2023-12-04 No Data [...] Use for CGM 2024-04-27 No Data Available Problem List Problem Status Onset Date Resolved Date Obstructive sleep apnea Active 2023-02-06 N/A Hypertension Active 2023-02-06 N/A MDD (major depressive disord er), recurrent episode, mild Active 2023-04-09 N/A Seronegative rheumatoid arthritis Active 2023-08 N/A Chronic left-sided headache Active 2024-04-21 N/A Morbid (severe) obesity due to excess calories Active 2023-02-03 N/A Encounter for other specifie d aftercare, for Allergic reaction to plant, excluding food Inactive 2024-05-03 N/A Status post fallDifficulty w alkingHx of fracture of lower legHistory of fracture of left shoulder Resolved 2023-04-09 2024-09-22 Asthma Active 2023-02-06 N/A Urinary incontinence Active 2023-02-06 N/A 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, without long-term current use of insulin Active 2023-02-06 N/A Other problems related to ms dical facilities and other health care Active 2024-05-03 N/A Iron deficiency anemia Active 2023-02-06 N/A Encounters Encounters Type Facility Date of Service Diagnosis/Co mplaint No Data Available [facility] ([place] 04[place]09/2023 Morbid (severe) obesity due to excess caloriesBody mass index (BMI) 40.0-44.9, adultType 2 diabetes w unsp diabetic retinopathy w macular edemaMajor depressive disorder, recurrent, mildIron deficiency anemia, unspecifiedUnspecified urinary incontinenceUnspecified asthma, uncomplicatedObstructive sleep apnea (adult) (pediatric)2-part nondisp fx of surg nk of l humer, 7thDEssential (primary) hypertensionHistory of fallingDifficulty in walking, not elsewhere classified No Data Available [facility], ([place] 04/09/2023 No Data Available [facility] [place] 04/09/2023 No Data Available [facility] [place] 04/09[place]2023 No Data Available [facility] 04/[place]2023 No Data Available [facility] 04/[place]2023 No Data Available [facility] [place] 04/[place]/2023 Estab. patient 20-29min; 1 stable chronic or 2 minor; add add modifier 95 for video, modifier 93 for phone [facility], ([place] 05/06/2023 Type 2 diabetes w unsp diabe [...] 95 for video, modifier 93 for phone [facility] [place] 05/06/2023 Estab. patient 20-29min; 1 stable chronic or 2 minor; add add modifier 95 for video, modifier 93 for phone [facility] [place] 05/06/2023 Estab. patient 20-29min; 1 stable chronic or 2 minor; add add modifier 95 for video, modifier 93 for phone [facility] [place] 05/06/2023 No Data [facility] History of fallingDifficulty in walking, not elsewhere classified No Data Available [facility] [place] 06/15/2023 No Data Available [facility], ([place] 06[place]16/2023 History of fallingDifficulty in walking, not elsewhere classifiedPersonal history of (healed) traumatic fracture No Data Available [facility], ([place]) 06/16/2023 No Data Available [facility] No Data Available [facility] [place]2023 No Data Available [facility] [place] 07/08/2023 Difficulty in walking, not elsewhere classifiedHistory of fallingPersonal history of (healed) traumatic fracture No Data Available [facility] [place] 07/08/2023 Estab. patient 30-39min; chronic exacerbation, 2 stable chronic or 1 acute illness add add modifier 95 for video, (do not use for phone, instead use [id number]) [facility] [place] 07/15/2023 Morbid (severe) obesity due to excess caloriesBariatric surgery statusIron deficiency anemia, unspecifiedType 2 diabetes w unsp diabetic retinopathy w macular edemaUnspecified urinary incontinenceUnspecified asthma, uncomplicatedObstructive sleep apnea (adult) (pediatric)2-part nondisp fx of surg nk of l teer, 7thDEssential (primary) hypertensionHistory of fallingDifficulty in walking, not elsewhere classifiedPersonal history of (healed) traumatic fractureBody mass index (BMI) 40.0-44.9, adult Estab. patient 30-39min; chronic exacerbation, 2 stable chronic or 1 acute illness add add modifier 95 for video, (do not use for phone, instead use [id number]) [facility] [place] 07[place] Estab. patient 30-39min; chronic exacerbation, 2 stable chronic or 1 acute illness add add modifier 95 for video, (do not use for phone, instead use [id number]) [facility] [place] 07/15/20[place] Estab. patient 30-39min; chronic exacerbation, 2 stable chronic or 1 acute illness add add modifier 95 for video, (do not use for phone, instead use [id number]) [facility], ([place] 07/15/2023 Estab. patient 30-39min; chronic exacerbation, 2 stable chronic or 1 acute illness add add modifier 95 for video, (do not use for phone, instead use [id number]) [facility] [place] 07/15/2023 No Data Available [facility], [place] 08/14/2023 Morbid (severe) obesity due to excess caloriesBariatric surgery statusUnspecified asthma, uncomplicatedHistory of fallingDifficulty in walking, not elsewhere classifiedPersonal history of (healed) traumatic fracture No Data Available [facility] [place] 08/14/2023 No Data Available [facility] [place] 09/09/2023 Urinary tract infection, sit e not specified No Data Available [facility] [place] 09/10/2023 Urinary tract infection, sit e not specifiedHistory of fallingDifficulty in walking, not elsewhere classifiedPersonal history of (healed) traumatic fracture No Data Available [facility], [place] 09/10/2023 Estab. patient 30-39min; chronic exacerbation, 2 stable chronic or 1 acute illness add add modifier 95 for video, (do not use for phone, instead use [id number]) [facility], ([place] 09/18/2023 Urinary tract infection, sit e not [...] nondisp fx of surg nk of l jeremy, 7thDEssential (primary) hypertensionMajor depressive disorder, recurrent, mildRheumatoid arthritis without rheumatoid factor, unspecified site Estab. patient 30-39min; chronic exacerbation, 2 stable chronic or 1 acute illness add add modifier 95 for video, (do not use for phone, instead use [id number]) [facility], ([place] 09/18/2023 Estab. patient 30-39min; chronic exacerbation, 2 stable chronic or 1 acute illness add add modifier 95 for video, (do not use for phone, instead use 74101-34) [facility], ([place] 09/18/20[place] Estab. patient 30-39min; chronic exacerbation, 2 stable chronic or 1 acute illness add add modifier 95 for video, (do not use for phone, instead use 13647-55) [facility], [place] 09/18/20[place] Estab. patient 30-39min; chronic exacerbation, 2 stable chronic or 1 acute illness add add modifier 95 for video, (do not use for phone, instead use 14356-09) [facility] [place] 09[place]18[place]20[place] Estab. patient 30-39min; chronic exacerbation, 2 stable chronic or 1 acute illness add add modifier 95 for video, (do not use for phone, instead use 26681-92) [facility] [place] 09/18[place]2023 Estab. patient 30-39min; chronic exacerbation, 2 stable chronic or 1 acute illness add add modifier 95 for video, (do not use for phone, instead use 19339-66) [facility] [place] 09[place]18[place]20[place] Estab. patient 30-39min; chronic exacerbation, 2 stable chronic or 1 acute illness add add modifier 95 for video, (do not use for phone, instead use 03452-38) [facility] [place] 09/18/2023 Estab. patient 30-39min; chronic exacerbation, 2 stable chronic or 1 acute illness add add modifier 95 for video, (do not use for phone, instead use 12275-52) [facility] [place] 09/18/2023 No Data Available [facility] [place] 04[place]21/2024 Morbid (severe) obesity due to excess caloriesBariatric surgery statusType 2 diabetes w unsp diabetic retinopathy w macular edemaUnspecified urinary incontinenceUnspecified asthma, uncomplicatedObstructive sleep apnea (adult) (pediatric)Essential (primary) hypertensionBody mass index (BMI) 40.0-44.9, adultMajor depressive disorder, recurrent, mildOther problems related to medical facilities and other health careHeadache, unspecifiedOther chronic pain No Data Available [facility] No Data Available [facility] 04[place] No Data Available [facility] [place] 04/21[place]20[place] No Data Available [facility] [place] No Data Available [facility] [place]20[place] No Data Available [facility] [place] 04[place]21[place]2024 No Data Available [facility], ([place]03/2024 Type 2 diabetes w unsp diabe tic retinopathy w macular edemaAllergic contact dermatitis due to plants, except foodEncounter for other specified aftercareOther problems related to medical facilities and other health careLong term (current) use of insulin No Data Available [facility] [place] 05/03/2024 No Data Available [facility] [place] 08/26/2024 Flu due to unidentified influenza virus w oth resp manifestPersons encountering health services in other specified circumstancesOther problems related to medical facilities and other health care No Data Available [facility] [place] 08/[place]/2024 No Data Available [facility] [place] Estab. patient 10-29min; 1 minor problem; add add modifier 95 for video, modifier 93 for phone [facility] [place] 09/22/2024 Type 2 diabetes w unsp diabe tic retinopathy w macular edemaUnspecified asthma, uncomplicatedObstructive sleep apnea (adult) (pediatric)Body mass index (BMI) 40.0-44.9, adultOther problems related to medical facilities and other health care Estab. patient 10-29min; 1 minor problem; add add modifier 95 for video, modifier 93 for phone [facility] [place]/22/20[place] Estab. patient 10-29min; 1 minor problem; add add modifier 95 for video, modifier 93 for phone [facility] ([place] 09/22/2024 Estab. patient 10-29min; 1 minor problem; add add modifier 95 for video, modifier 93 for phone [facility] ([place] 09/22/2024 Estab. patient 10-29min; 1 minor problem; add add modifier 95 for video, modifier 93 for phone [facility] [place] 10/21/2024 Unspecified urinary incontinenceOther female genital prolapseType 2 diabetes w unsp diabetic retinopathy w macular edemaOther problems related to medical facilities and other health careBody mass index (BMI) 40.0-44.9, adult Vital Signs Date of Collection Vitals 2023-04-09 [...] - 122.0 mm[Hg]Pain Scale - 5.0 {score} 2024-09-22 07:00:04 Weight - 107.05 kgBo dy Mass Index (BMI) - 43.16 kg/m2Pain Scale - 0.0 {score} 2024-10-21 08:37:46 Height - 157.48 cmWe ight - 107.05 kgBody Mass Index (BMI) - 43.16 kg/m2 Social History Social History Social History Observation Description Effec tive Time Current Smoking Status Former smoker 5 Sex Female History of Procedures Procedures Service Procedure code Service date Servicing provider Phone# No Data Available [id number] 2023-04-09 No Data Available No Data Available [...] Availa ble Pain Assessment - Pain Documented on a Pain Scale (1125F) 1125F 2023-04-09 No Data Available No Data Carli ilable Estab. patient 20-29min; 1 stable chronic or 2 minor; add add modifier 95 for video, modifier 93 for phone [id number] 2023-05-06 No Data Available No Data Availa [...] No Data Carli ilable No Data Available 2023-06-15 No Data Available No Data Available Medication List Documented (1159F) 1159F 2023-06-15 No Data Available No Data Carli ilable No Data Available [id number] 2023-06-16 No Data Available No Data Available Medication List Documented (1159F) 1159F 2023-06-16 No Data Available No Data Carli ilable Pain Assessment - Pain Documented on a Pain Scale (1125F) 1125F 2023-06-16 No Data Available No Data Carli ilable BMI obtained (3008F) 3008F 2023-06-16 No Data Availab le No Data Available No Data Available [id number] 2023-07-08 No Data Available No Data Available Medication List Documented (1159F) 1159F 2023-07-08 No Data Available No Data Carli ilable Estab. patient 30-39min; chronic exacerbation, 2 stable chronic or 1 acute illness add add modifier 95 for video, (do not use for phone, instead use 02617-95) [id number] 2023-07-15 No Data Available No Data Availa ble Medication List Documented (1159F) 1159F 2023-07-15 No Data Available No Data Carli ilable Medication Review by prescribing provider or pharmacist documented (1160F) 1160F 2023-07-15 No Data Available No Data Carli ilable BMI obtained (3008F) 3008F 2023-07-15 No Data Availab le No Data Available Pain Assessment - Pain Documented on a Pain Scale (1125F) 1125F 2023-07-15 No Data Available No Data Carli ilable No Data Available [id number] 2023-08-14 No Data Available No Data Available Medication List Documented (1159F) 1159F 2023-08-14 No Data Available No Data Carli ilable No Data Available [id number] 2023-09-09 No Data Available No Data Available No Data Available [id number] 2023-09-10 No Data Available No Data Available Medication List Documented (1159F) 1159F 2023-09-10 No Data Available No Data Carli ilable Estab. patient 30-39min; chronic exacerbation, 2 stable chronic or 1 acute illness add add modifier 95 for video, (do not use for phone, instead use [id number]) 41586 2023-09-18 No Data Available No Data Availa ble Medication List Documented (1159F) 1159F 2023-09-18 No Data Available No Data Carli ilable Medication Review by prescribing provider or pharmacist documented (1160F) 1160F 2023-09-18 No Data Available No Data Carli ilable Pain Assessment - NO pain present (1126F) 1126F 2023-09-18 No Data Available No Data A vailable BMI obtained (3008F) 3008F 2023-09-18 No Data [...] Availa ble Pain Assessment - Pain Documented on a Pain Scale (1125F) 1125F 2023-09-18 No Data Available No Data Carli ilable Functional Status Assessed (1170F) 1170F 2023-09-18 No Data Available No Data Avail able No Data Available [id number] 2024-04-21 No Data Available No Data Available SBP < 130 (3074F) 3074F 2024-04-21 No Data Available No Data Available DBP <80 (3078F) 3078F 2024-04-21 No Data Available No Data Available Pain Assessment - Pain Documented on a Pain Scale (1125F) 1125F 2024-04-21 No Data Available No Data Carli ilable Functional Status Assessed (1170F) 1170F 2024-04-21 No Data Available No Data Avail able Medication List Documented (1159F) 1159F 2024-04-21 No Data Available No Data Carli ilable BMI obtained (3008F) 3008F 2024-04-21 No Data Availab le No Data Available No Data Available [id number] 2024-05-03 No Data Available No Data Available Medication List Documented (1159F) 1159F 2024-05-03 No Data Available No Data Carli ilable No Data Available [id number] 2024-08-26 No Data Available No Data Available Medications prescribed in hospital were reviewed and reconciled against what they were taking prior to admission during today's visit. (1111F) 1111F 2024-08-26 No Data Available No Data Availa ble Medication List Documented (1159F) 1159F 2024-08-26 No Data Available No Data Carli ilable Estab. patient 10-29min; 1 minor problem; add add modifier 95 for video, modifier 93 for phone [id number] 2024-09-22 No Data Available No Data Availa ble Pain Assessment - NO pain present (1126F) 1126F 2024-09-22 No Data Available No Data A vailable Most recent A1c (HbA1c) or GMI level <7% (3044F) 3044F 2024-09-22 No Data Available No Data Availa ble Medication List Documented (1159F) 1159F 2024-09-22 No Data Available No Data Carli ilable Estab. patient 10-29min; 1 minor problem; add add modifier 95 for video, modifier 93 for phone [id number] 2024-10-21 No Data Available No Data Availa ble Functional Status Functional Category Effective Dates Falls [...] Patient Education to avoid future hospitalization: Call [facility] if symptoms of illness develop.Morbid (severe) obesity [...] 2023-09-09 13:16:02 Follow up plan for jennifer inésarron symptoms: 7:38 minutesUTI (urinary tract infection) 2023-09-10 [...] Patient Education to avoid future hospitalization: Call [facility] if symptoms of illness develop.History of recent hospitalization for InfluenzaOther problems related to medical facilities and other health care 2024-09-22 07:00:04 Type 2 diabetes long itus with both eyes affected by retinopathy and macular edema, without long-term current use of insulinAsthmaObstructive sleep apneaOther problems related to medical facilities and other health care 2024-10-21 08:37:46 Urinary incontinence 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, without long-term current use of insulinOther problems related to medical facilities and other [...] units TID AC meals and FU with swat team member in February,Wears rafaela paduses inhaler Flovent BIDHas CPAP using nightlyContinue lovenox as directedAdvancing home PTencouraged UE activity as toleratedHas not been taking BP medication since surgery 2 months ago on broken footApril 2022 had a bad fall on steps at entrance to home. Fractured L foot, L?knee, L shoulderStill unable to walkUsing wheelchairDeclines productsEscitalopramWill think about whether she wants a therapist [...] units TID AC meals and FU with swat team member in February,Wears rafaela padNeeds chux pads, XL pull-ups, gloves XLuses inhaler Flovent BIDHas CPAP using nightlyContinue lovenox as directedAdvancing home PTencouraged UE activity as toleratedHas not been taking BP medication since surgery 2 months ago on broken footApril 2022 had a bad fall on steps at entrance to home. Fractured L foot, L?knee, L shoulderStill unable to walkUsing wheelchairNow [facility] productsEscitalopramRex think about whether she wants a therapist 2023-06-15 13:39:58 Phone (patient, pare nt, or guardian); 5-10 minutes of medical discussion (no modifier 95)Continue to see PCP. Follow-up with Tran as needed for any acute or disease education needs that may arise 23/03.November 2022 had a bad fall on steps at entrance to home. Fractured L foot, L?knee, L shoulderStill unable to walkUsing ytplhibwzy13/16/2023er son, can only walk very short distances [...] unable to walkUsing wheelchairNow [facility]3Per son, can only walk very short distances [...] L lower leg, L shoulderStill unable to walk3Called pt, discussed approval of her scooter. Informed her we need to schedule home visit/eval, and we need videocall. Tablet needs a associate professor of law, will send and schedule videocall for next [...] Documented (1125F)Continue to see PCP. Follow-up with [facility] as needed for any acute or disease education needs that may arise. Continue to see PCP. Follow-up with [facility] as needed for any acute or disease [...] unable to walkUsing wheelchairNow having PT [facility]3Per son, can only walk very short distances [...] to PT but after [place] in .Can start in October. 2023-08-14 12:38:06 Phone (patient, pare nt, or guardian); 5-10 [...] unable to walkUsing wheelchairNow [facility]er son, can only walk very short distances [...] and we need videocall. Tablet needs a associate professor of law, will send and schedule videocall for next week.Having some pain on her left knee, this is not new, Will FU w video.08/14/2023Has not heard from [facility] but has not been home. Will see if they have called or if it has arrived and will let us know. 2023-09-09 13:16:02 Phone (patient, pare nt, or guardian); 5-10 [...] 09/10/23.UPDATE 09/10/2023t has not yet gone to [facility] pick[facility] prescription. Feels about the same. Education [...] painWill start nitrofurantoin.Increase water and rest.Tylenol.F/U with [facility] 09/10/23.UPDATE 09/10/2023t has not yet gone to [facility] picker prescription. Feels about the same. Education [...] unable to walkUsing wheelchairNow having [facility]3Per son, can only walk very short distances [...] and we need videocall. Tablet needs a associate professor of law, will send and schedule videocall for next [...] units TID AC meals and FU with swat team member Reports stableWears rafaela padNeeds chux pads, XL pull-ups, gloves XLuses inhaler Flovent BIDHas CPAP using nightlyContinue lovenox as directedAdvancing home PTencouraged UE activity as toleratedHas not been taking BP medication aftersurgery on broken footUPDATE 09/18/2023eports compliance nowApril 2022 had a bad fall on steps at entrance to home. Fractured L lower leg, L shoulderStill unable to walkUsing wheelchairNow [facility]er son, can only walk very short distances [...] and we need videocall. Tablet needs a associate professor of law, will send and schedule videocall for next week.Having some pain on her left knee, this is not new, Will FU w video.08/14/2023 Has not heard from [facility] but has not been home. Will see if they have called or if it has arrived and will let us know.08/21/2023 ordered in-home eval for [facility]09/10/2023Need to do videocall so need to schedule it when pt has help. She has tech savvy limitations. After videocall CN will schedule in-home eval. 09/18/2023Video call for [facility] eval. Pt still having pain. Has ortho appt [...] nitrofurantoin.Increase water and rest.Tylenol.F/U with MAHENDRA 09/10/23.UPDATE 4Pt has not yet gone to pear picker prescription. Feels about the same. Education [...] individual diagnosis for contingency plan.previously diagnosed 01/20/23 [employer] painstable 2024-04-21 09:19:41 Phone (patient, pare nt, or guardian); 5-10 minutes of medical discussion (no modifier 95)Continue to see PCP. Follow-up with [facility] as needed for any acute or [...] units TID AC meals and FU with swat team member Reports stableWears rafaela padNeeds chux pads, XL [...] thinking about going to the ER? ResolvedNext Smart Voicemail scheduled appt/call: Patient education provided: Y lynn call us if similar situation arises in future. Avoid this plant in the futureHow else can we help? Refill (See DM)Member trained on use of ? Red Button? for urgent needs and provided with Smart Voicemail phone # as an alternative method to [...] appropriateSee each individual diagnosis for contingency plan. 2024-09-22 07:00:04 Estab. patient 10-29 min; 1 minor problem; add add modifier 95 for video, modifier 93 for phoneMost recent A1c (HbA1c) or GMI level <7% (3044F)Continue to see PCP. Follow-up with Tr[facility] as needed for any acute or disease education needs that may arise 23/03.Random glucose 150-200's routinelyhas insulin pump and uses injections lispro/lantuswears glassesenc drink water or zero calorie drinks, avoid sodas and sweetscontinue lantus 30 units + trulicity + humalog 8 units TID AC meals and FU with swat team member Reports stable09/22/24feels well, denies hypo/hyperglycemic episodescontinues to use CGM and insulin pump A1c 6.9 05/24/24uses inhaler Flovent BIDuses nebulizer 09/22/24denies SOBHas CPAP using nightlyCOPD CONTINGENCY PLANLast updated: 09/22/2024[facility] the following [facility]: Increased cough??/ WheezingPlanned intervention: Increase use of albuterol inhaler to q2h PRN cough, breathlessness/ prednisone taper 40mg x 3 days, 30mg x 3 days, 20mg x 3 days, 10mg x 3 days/ Doxycycline 100mg BID x 7 days 2024-10-21 08:37:46 Estab. patient 10-29 min; 1 minor problem; add add modifier 95 for video, modifier 93 for phoneContinue to see PCP. Follow-up with Tran as needed for any acute or disease education needs that may arise 23/03.Wears rafaela padNeeds -Bladder pads (female) 5 per 24 hours-chux pads 3 per 24 hours 10/21/24reports incontinence supplies ordered 2 months ago by [facility], but has not received yet. Is voiding on bed d/t incontinencePLAN: incontinence supplies ordered todayRandom glucose 150-200's routinelyhas insulin pump and uses injections lispro/lantuswears glassesendocrinologist 10/21/24feels well, denies hyperglycemic episodescontinues to use CGM and insulin pump+hypoglycemia x >3x/monthreports feeling dizzy, diaphoretic and shaky when BS <100has had 3 readings in the 60's in the past monthdoes drink juice to help increase sugars A1c 6.9 05/24/24needs CGM sensor refill, refill sentPLAN: if hypoglycemia continues recommend decreasing lantusDIABETES CONTINGENCY PLANLast updated: 10/21/2024Member to call for the following symptoms: Blood sugar <70??/ Blood sugar >300??Planned intervention: for BS <70 Decrease long-acting insulin to <20> units/ for bs >300 (sliding scare as needed) Encourage adequate water intake/ Go for a walk Health Concerns Date Concern 2024-10-21 Visit completed via audio by telephone. Patient/Guardian agreed to visit via telehealth.Time spent in visit: 2024-10-21 Most recent hospital stay(s) or ER visit(s) and precipitating factors: none in the past month 2024-10-21 f/u PCP 11/03/24 2024-10-21 needs incontinence s upplies
== END 2024-11-02 13:47 | disposition home or self-care (01) ==
PROVIDERS: PCP Internal Medicine; Visit Provider Nurse Practitioner Adult Health
DX: E11.9 Type 2 diabetes mellitus without complications (principal)
CPT/HCPCS: 99214; G2211

== ENCOUNTER → 2024-11-02 13:08 | Outpatient (BNVA) | payer OTHER, SELFPAY | PROVIDERS: PCP Internal Medicine; Visit Provider Nurse Practitioner Adult Health | DX: E11.9 Type 2 diabetes mellitus without complications (principal); Z79.4 Long term (current) use of insulin | CPT/HCPCS: 82947; 99212 ==

== ENCOUNTER 2024-11-03 13:03 | Outpatient (AMB) | payer OTHER, SELFPAY ==
--- NOTE | 2024-11-03 13:04 | A.OFFVIS_ITS ---
VS Expanded 11/03/24 13:16 BP 136/97 H Blood Pressure Location Rt brachial Blood Pressure Position Sitting Pulse 73 Pulse Oximetry 96 Height 5 ft 2 in Intake Visit Reasons: (OV) PO LSG 02/15/19 Blanket Cutting Machine Operator Required: Yes Blanket Cutting Machine Operator Name: Hue Basilio [id number] Allergies seasonal Allergy (Intermediate, Uncoded 11/03/24 13:17) cough Medication List - Last Reconciled 11/03/24 by TRENT Zhang acetaminophen (Tylenol Extra Strength) 500 mg PO Q6H PRN albuterol sulfate 90 mcg/actuation 2 puffs inhalation Q6H PRN beclomethasone dipropionate 80 mcg/actuation (Qvar RediHaler) 2 inhalations inhalation BID blood sugar diagnostic (FarseerTouch Verio test strips) As directed test 4 times a day blood-glucose meter (OneTouch Verio Flex Meter) As directed checks 4 times a day bolus insulin pump, 200 unit (CeQur Simplicity) calcium carbonate-vitamin D3 600 mg-10 mcg (400 unit) 1 tab PO Q12H cetirizine 0.24% 1 drp ophthalmic (eye) BID 5 days cholecalciferol (vitamin D3) 125 mcg PO DAILY codeine-guaifenesin 10-100 mg/5 mL 10 mL PO Q6H PRN CPAP (CPAP Machine/Device) As directed escitalopram oxalate 20 mg PO DAILY flash glucose sensor (FreeStyle Walter 2 Sensor kit) As directed fluticasone propionate 50 mcg/actuation 2 sprays intranasal DAILY gabapentin 0 mg PO insulin glargine (Lantus Solostar U-100 Insulin) 24 units (0.24 mL) subcut DAILY insulin lispro (Humalog U-100 Insulin) 8 UNITS (4 CLICKS) via CeQur device subcutaneously 3 times a day BEFORE MEALS 30 days irbesartan 75 mg PO DAILY Lantus Solostar U-100 Insulin (insulin glargine) 24 units (0.24 mL) subcut DAILY NS meclizine 25 mg PO DAILY PRN melatonin 10 mg PO BEDTIME rosuvastatin 40 mg PO DAILY sennosides-docusate sodium 8.6-50 mg (Senna Plus) 1 tab PO BEDTIME tirzepatide (Mounjaro) 5 mg (0.5 mL) subcut QWEEK 30 days tirzepatide (Mounjaro) 2.5 mg (0.5 mL) subcut QWEEK 4 weeks vitamin A palmitate 10,000 units PO DAILY HPI Comments Details: This?is a?74 yo female who is s/p LSG 02/15/2019. Weight at last visit on 05/23/2024 was 237 pounds; weight today is 235.4 pounds, representing a 1.6 pound weight loss with a BMI today of 43.1. Pt is taking Mounjaro prescribed by her prepress supervisor. Has been on this for several months. Recently had the dose increased yesterday. Pt reports feeling sick recently, low energy. Has not been using protein bars or protein shakes- ran out . Present meal plan includes: Breakfast- premier premade shake Lunch- meal delivery, choose protein and veg Dinner- Pure Protein bar If feels hungry- can have additional part of bar or shake Exercise routine includes: likes to walk [facility] Medical History (Updated 11/02/24 @ 13:25 by Breanna Walters NP) Type 2 diabetes mellitus Panic attack Anxiety Obesity due to excess calories Asthma REY (obstructive sleep apnea) Morbid obesity Vitamin D deficiency Obesity Dyslipidemia Hypertension Diabetic polyneuropathy associated with type 2 diabetes mellitus Diabetes type 2, uncontrolled Surgical History Abdominal pain History of carpal tunnel release S/P trigger finger release H/O foot surgery History of dilatation and curettage History of sleeve gastrectomy History of esophagogastroduodenoscopy (EGD) History of eyelid surgery Hx of tubal ligation Hx of colonoscopy Family History Father Type II diabetes mellitus Obesity Mother HTN (hypertension) Brother Cancer Social History Household Members: Spouse Housing: Apartment Do you presently have visiting nurse or other home services: Yes Alcohol intake: never Patient Tobacco Use Status: Former Tobacco user Tobacco use type: Cigarette e-Cigarette/Vaping Use: Never Used service: No Current occupational status: unemployed Current occupation: rt handed Physical Exam Vital Signs: Last Vital Signs Pulse 73 11/03/24 13:16 BP 136/97 H 03/06/25 13:16 Pulse Ox 96 11/03/24 13:16 Assessment & Plan Assessment & Plan (1) Status post sleeve gastrectomy: Code(s): Z90.3 - Acquired absence of stomach [part of] Category: Surgical (2) Morbid obesity: Code(s): E66.01 - Morbid (severe) obesity due to excess calories Category: Medical Plan Reinforced the importance of adequate protein intake with weight loss efforts. Encouraged her to resume one Premier shake and one Pure bar per day. If she is hungry may have additional part of bar or shake. Plus her lunchtime meal of protein veg. Gave protein shakes/bars handout for reference. Pt to resume mayda MVI, not taking- gave several brand names. RTC 6 mo. I spent a total of 30 minutes reviewing/updating records, examining the patient and counseling the patient on weight management as detailed above. Medications: Refilled sennosides-docusate sodium 8.6-50 mg (Senna Plus) 1 tab PO BEDTIME 30 tabs 0RF
[2024-11-03 13:16] VITALS: BP 136/97; PULSE 73; O2SAT 96
--- OUTSIDE RECORDS SUMMARY | 2024-11-03 15:45 | XMS_ITS | Encounter Summary ---
Author Organization [employer] [facility] Address [address] [place] [address] 7 [place] [address] Care Team Providers Care Senior Research Executive Name Role Phone Radha Bran MD Primary Care Provider + Encounter Details Date Type Department Care Team (Late st Contact Info) Description 07/28/2022 Abstract [facility] [address] [place] [phone] ProviderBritany MD Social History Tobacco Use Types Packs/Day Years Used Date Smoking Tobacco: Never Assessed Comments Unknown Sex and Gender Information Value Date Recorded Sex Assigned at Female 06/30/2022 10:14 AM EDT Legal Sex Female 10:14 AM EDT Gender Identity Female 06/30/2022 10:14 AM EDT Sexual Orientation Straight 06/30/2022 10 :14 AM EDT documented as of this encounter Plan of Treatment Upcoming Encounters Date Type Department Care Team (Late st Contact Info) Description 12/15/2024 10:30 AM EDT Office Visit [facility] [address] [place] [address] Radha Bran MD [address] [place] [address] documented as of this encounter Visit Diagnoses Not on filedocumented in this encounter Care Teams Senior Research Executive Relationship Specialty Start Date End Date Radha Bran MD [address] [place] [phone] PCP - General Family Medicine 10/16/20 documented as of this encounter
--- OUTSIDE RECORDS SUMMARY | 2024-11-03 15:45 | XMS_ITS | Encounter Summary ---
Author Organization [employer] Address [address] [place] [address] 7 [place] [address] Care Team Providers Care Health Care Attorney Name Role Phone Radha Bran MD Primary Care Provider + Encounter Details Date Type Department Care Team ([facility] Contact Info) Description 02/09/2023 [facility] Health Information Management [address] [place] [address] Radha Bran MD [address] [place] [address] Social History Tobacco Use Types Packs/Day Years [...] Upcoming Encounters Date Type Department Care Team ([facility] Contact Info) Description 12/15/2024 10:30 AM EDT Office Visit [facility] [address] [place] [address] Radha Bran MD [address] [place] [address] documented as of this encounter Visit Diagnoses Not on filedocumented in this encounter Care Teams Health Care Attorney Relationship Specialty Start Date End Date Radha Bran MD [address] [place] [address] PCP - General Family Medicine 10/16/20 documented as of this encounter
--- OUTSIDE RECORDS SUMMARY | 2024-11-03 15:45 | XMS_ITS | Encounter Summary ---
Author Organization [employer] Address [address] [facility] 7t [place] [address] Care Team Providers Care Bus Mechanic Name Role Phone Radha Bran MD Primary Care Provider + Encounter Details Date Type Department Care Team (Late st Contact Info) Description 11/02/2024 Orders Only GENERIC EXTERNAL DATA DEPARTMENT Provider, [...] t he electric, gas, oil or water Sentiment threatened to shut off services in your [...] Description 12/15/2024 10:30 AM EDT Office Visit [facility] [address] [place], [place] [phone] Radha Bran MD [address] [place] [address] documented as of this encounter Procedures Procedure Name Priority Date/Time Associated Diagnosis Comments GLUCOSE, WHOLE BLOOD Routine 11/02/2024 1:25 PM EST documented in this encounter Results * (ABNORMAL) Glucose, Whole Blood (11/02/2024 1:25 PM EST) Glucose, Whole Blood 145(H) 60 - 115 mg/dL [facility] Comment:METER #: [id number] Testing performed in the Endocrinology Department [address], [address], [facility]. 11/02/2024 1:25 PM EST 11/02/2024 1:30 PM EST us Generic External Data Provider LAB BLOOD ORDERAB LES Final Result [facility] [address] [place] [address] [phone] documented in this encounter Visit Diagnoses Not on filedocumented in this encounter Additional Health Concerns Assessment Noted Time PHQ-9 Depression Total Score: 13 10/27/ 024 10:37 AM EST documented as of this encounter Care Teams Bus Mechanic Relationship Specialty Start Date End Date Radha Bran MD [address] [place] [phone] PCP - General Family Medicine 10/16/20 documented as of this encounter
--- OUTSIDE RECORDS SUMMARY | 2024-11-03 15:45 | XMS_ITS | Encounter Summary ---
Author Organization [employer] Address [address] [facility] 7t [place] [address] Care Team Providers Care Counter Former Name Role Phone Radha Bran MD Primary Care Provider + Encounter Details Date Type Department Care Team ([facility] st Contact Info) Description 08/25/2024 Orders Only [facility] [address] [place] [address] Radha Bran MD [address] [place] [address] Social History Tobacco Use Types Packs/Day Years [...] Description 12/15/2024 10:30 AM EDT Office Visit [facility] [address] [place] [phone] Radha Bran MD [address] [place] [phone] documented as of this encounter Visit Diagnoses Not on filedocumented in this encounter Additional Health Concerns Assessment Noted Time PHQ-9 Depression Total Score: 13 024 10:37 AM EST documented as of this encounter Care Teams Counter Former Relationship Specialty Start Date End Date Radha Bran MD [address] [place] [phone] PCP - General Family Medicine 10/16/20 documented as of this encounter
--- OUTSIDE RECORDS SUMMARY | 2024-11-03 15:45 | XMS_ITS | Encounter Summary ---
Author Organization [employer] Address [address] [facility] [address] 7[address] [place] [address] Care Team Providers Care Plant Floor Automation Manager Name Role Phone Radha Bran MD Primary Care Provider + Encounter Details Date Type Department Care Team (Latest Contact Info) Description 11/03/2024 Travel Social History Tobacco Use Types Packs/Day Years [...] 10:30 AM EDT Office Visit [facility] [address] [place] [address] Radha Bran MD [address] [place] [address] documented as of this encounter Visit Diagnoses Not on filedocumented in this encounter Additional Health Concerns Assessment Noted Time PHQ-9 Depression Total Score: 13 024 10:37 AM EST documented as of this encounter Care Teams Plant Floor Automation Manager Relationship Specialty Start Date End Date Radha Bran MD [address] [place] [phone] PCP - General Family Medicine 10/16/20 documented as of this encounter
--- OUTSIDE RECORDS SUMMARY | 2024-11-03 15:45 | XMS_ITS | Encounter Summary ---
Author Organization [facility] Address [address] [place] [address] 7 [place] [address] Care Team Providers Care Student Assistance Counselor Name Role Phone Radha Bran MD Primary Care Provider + Encounter Details Date Type Department Care Team (Late st Contact Info) Description 08/06/2022 Telephone [facility] [address] [place] [address] [phone] Radha Bran MD [address] [place] [address] Social History Tobacco Use Types Packs/Day Years [...] Description 12/15/2024 10:30 AM EDT Office Visit [facility] [address] [place] [phone] Radha Bran MD [address] [place] [address] [phone] documented as of this encounter Visit Diagnoses Not on filedocumented in this encounter Care Teams Student Assistance Counselor Relationship Specialty Start Date End Date Radha Bran MD [address] [place] [phone] PCP - General Family Medicine 10/16/20 documented as of this encounter
--- OUTSIDE RECORDS SUMMARY | 2024-11-03 15:45 | XMS_ITS | Data Portability ---
Author Organization [employer] [facility] [place] [facility] Address [address] [place] [phone] Care Team Providers Care Orthotic Practitioner Name Role Phone [facility] Referring Provider [phone] [facility] Referring Provider Assessment Encounter Date Assessment Date Assessment LastModified by Organization Details LastModified Time 03/17/2022 03/17/2022 I have reviewed and agree with the Assessment and Plan as documented by the Warp Dresser. I provided real -time medical direction via [...] go to the ER- report called to [facility] [email or web address] Not available 03/18/2022 21:31:13 Plan of Treatment Reminders Order Date Submit Date Provider Last Modified By Organization Details Last Modified Time Details Appointments None recorded. Lab None recorded. Referral None recorded. Procedures None recorded. Surgeries None recorded. Imaging electrocard iogram 2021 022 [email or web address] 0 [facility], [address] [place] [address], [phone], 21:32:45 Medication Orders None recorded. Patient TargetsNo targets recorded. Patient InstructionsNo instructions recorded. Reason for Referral None Reported. Results Created Date Observation Date Name Description Value Unit Range Abnormal Flag Note LastModifiedBy Organization Detail LastModifiedTime 03/18/20 22 03/18/2022 elect doug dupontgr am No observ ation record ed. [email or web address] [address], [phone], 03/18/2022 21:32:33 Result Notes None recorded. Procedures Surgical History None recorded. Imaging Results Imaging Date Name Status LastModified by Organization Details LastModified Time 03/18/2022 electrocardiogram completed [email or web address] [address], [place], [phone], 03/18/2022 21:32:33 Procedure Notes None recorded. Medical [...] Address Organization Details Last Updated DateTime 2 180229. 2 g 157.48 cm 97.8 [degF] 97 [...] 2768 Chelsea Hernandez MD Main - [facility] [address] [place] [phone] 03/17/2022 16:53:01 05/13/2022 21:10:03 Chest pain [id number] R07.9 Health Concerns Section Related Observation LastModified by Organization Detai ls LastModified Time None Recorded Concern Status LastModified by Organization Details LastModified Time None Recorded Advance Directives Directive None Recorded Payers Encounter Date Sequence Insurance Name Policy Number Policy Wagner Covered Member ID Wagner Member ID Guarantor Name 03/17/2022 1 [facility] - DOS PRIOR TO 2022 - DUAL ELIGIBLE (MEDICARE REPLACEMENT/ADV ANTAGE - HMO) Halley Ramon [id number] Halley Ramon Notes Date Note Type Note [...] ................... ................... ................... ................... ................... ................... ........ Warp Dresser Note: Sent to a call for a pt complaining of chest pain and sob. [facility] arrives on scene, pt arrives home in a van. Pt is alert and oriented. Airway is patent. Interactive Video Technician line used for communication as pt's primary language is Greek. Pt complains of left lateral neck pain [...] dizziness, n/v/d, abd pain, fever/chills or loc. [facility] orders 12 lead ECG. [facility] advises pt to be transported to ED for further evaluation/treatmen t. Pt agrees. Pt care is transferred to [facility]. Pt transported to [facility]. ................... ................... ................... ................... ................... ................... ................... ........ Disposition: FulfilledSEGMD- as above-Pat seen at [facility] 03/06/22- was having neck pain and headache at the time-denied having CP or telling staff she had CP.- that started more recently. She finished the antibiotics- was also given albuterol, but she did not use it as it was making her nervous/ shakey//has minimal cough- clear phlegm. She reports she sees a chart picker, but does not know her cardiac dx. Has hx obesity/ DM/ HTN/REY / panic d/o per old record. Quit smoking > 35 yrs ago- pat reports no known family hx CAD. Chelsea Hernandez MD [address] [facility],[address], [place], [phone], [employer] 03/18/2022 21:32:58 OBGyn Episode No OBEpisode recorded.
--- OUTSIDE RECORDS SUMMARY | 2024-11-03 15:45 | XMS_ITS ---
Author Name Maribel Vann NP Address [address] [place] [address] Phone [phone] [facility] Care Team Providers Care Support Staff Name Role Phone Maribel Vann Unavailable [phone] [facility] Unavailable [place], [facility] Unavailable [phone] [place]/Al Ruiz [place] Unavailable [phone] Unavailable Unavailable [phone] Unavailable Unavailable [phone] [employer] Unavailable [phone] Pedro Mohamud Unavailable [phone] Radha Bran Unavailable [phone] Reason for Referral Not Available Allergies, adverse reactions, alerts No known allergies History of medication use Medication Class Instructions Start Date End Date Fluocinolone Acetonide Body 0.01 % Oil APPLY BOTTLE TOPICALLY TO THE AFFECTED AREA IN THE MORNING 2022-08-13 No Data Available B-D KURTIS 2ND GEN PEN NDL [id number] USE TO INJECT FOUR TIMES DAILY 2022-08-28 [...] Data Available 2023-06-03 No D aries Available [employer] Development[employer] Verio Flex System w/Device Kit USE TO [...] time a day 2024-04-21 No Data Available [facility] [place] 0.65 % Solution Nasal 2 sprays intranasally [...] mg Tab Take 1 tablet by mo [facility] daily 2023-12-04 No Data Available CALCIUM [...] Active 2023-02-06 N/A Other problems related to va dical facilities and other health care Active 2024-05-03 N/A Iron deficiency anemia Active 2023-02-06 N/A Encounters Encounters Type Facility Date of Service Diagnosis/Co mplaint No Data Available [facility] [place]2023 Morbid (severe) obesity due to excess caloriesBody mass index (BMI) 40.0-44.9, adultType 2 diabetes w unsp diabetic retinopathy w macular edemaMajor depressive disorder, recurrent, mildIron deficiency anemia, unspecifiedUnspecified urinary incontinenceUnspecified asthma, uncomplicatedObstructive sleep apnea (adult) (pediatric)2-part nondisp fx of surg nk of l humer, 7thDEssential (primary) hypertensionHistory of fallingDifficulty in walking, not elsewhere classified No Data Available [facility] 04[place]09/2023 No Data Available [facility] 04/09[place]2023 No Data Available [facility] 04/09/2023 No Data Available [facility]2023 No Data Available [facility] 04/[place]2023 No Data Available [facility] 04/09/2023 Estab. patient 20-29min; 1 stable chronic or 2 minor; add add modifier 95 for video, modifier 93 for phone [facility] 05/06/2023 Type 2 diabetes w unsp [...] 95 for video, modifier 93 for phone [facility] 05/06/20[place] Estab. patient 20-29min; 1 stable chronic or 2 minor; add add modifier 95 for video, modifier 93 for phone [facility] 05/06/2023 Estab. patient 20-29min; 1 stable chronic or 2 minor; add add modifier 95 for video, modifier 93 for phone [facility] 05/06/2023 [facility] [place] [facility] History of fallingDifficulty in walking, not elsewhere classified No Data Available [facility] 06/15/2023 No Data Available [facility]2023 History of fallingDifficulty in walking, not elsewhere classifiedPersonal history of (healed) traumatic fracture No Data Available [facility] 06/16/2023 No Data Available [facility]23 No Data Available [facility]23 No Data Available [facility]23 Difficulty in walking, not elsewhere classifiedHistory of fallingPersonal history of (healed) traumatic fracture No Data Available [facility] Estab. patient 30-39min; chronic exacerbation, 2 stable chronic or 1 acute illness add add modifier 95 for video, (do not use for phone, instead use 55452-15) [facility]2023 Morbid (severe) obesity due to excess [...] (do not use for phone, instead use 59605-69) [facility] Estab. patient 30-39min; chronic exacerbation, 2 stable chronic or 1 acute illness add add modifier 95 for video, (do not use for phone, instead use 05340-59) [facility] 07[place] Estab. patient 30-39min; chronic exacerbation, 2 stable chronic or 1 acute illness add add modifier 95 for video, (do not use for phone, instead use 11410-51) [facility] 07[place] Estab. patient 30-39min; chronic exacerbation, 2 stable chronic or 1 acute illness add add modifier 95 for video, (do not use for phone, instead use 51265-93) [facility] 07/[place]/2023 No Data Available [facility] 08[place]/2023 Morbid (severe) obesity due to excess caloriesBariatric surgery statusUnspecified asthma, uncomplicatedHistory of fallingDifficulty in walking, not elsewhere classifiedPersonal history of (healed) traumatic fracture No Data Available [facility] 08/14/2023 No Data Available [facility] 09/[place]/2023 Urinary tract infection, sit e not specified No Data Available [facility]/10[place]2023 Urinary tract infection, sit e not specifiedHistory of fallingDifficulty in walking, not elsewhere classifiedPersonal history of (healed) traumatic fracture No Data Available [facility] 09/10/2023 Estab. patient 30-39min; chronic exacerbation, 2 stable chronic or 1 acute illness add add modifier 95 for video, (do not use for phone, instead use 84287-36) [facility] 09/18/2023 Urinary tract infection, sit e not [...] (do not use for phone, instead use 64519-46) [facility] 09[place]18/[place]23 Estab. patient 30-39min; chronic exacerbation, 2 stable chronic or 1 acute illness add add modifier 95 for video, (do not use for phone, instead use 92683-32) [facility] 09[place]18[place] Estab. patient 30-39min; chronic exacerbation, 2 stable chronic or 1 acute illness add add modifier 95 for video, (do not use for phone, instead use 65171-53) [facility] 09[place]18[place] Estab. patient 30-39min; chronic exacerbation, 2 stable chronic or 1 acute illness add add modifier 95 for video, (do not use for phone, instead use 27549-09) [facility] 09[place]18[place] Estab. patient 30-39min; chronic exacerbation, 2 stable chronic or 1 acute illness add add modifier 95 for video, (do not use for phone, instead use 98145-36) [facility] 09[place]18[place] Estab. patient 30-39min; chronic exacerbation, 2 stable chronic or 1 acute illness add add modifier 95 for video, (do not use for phone, instead use 44285-65) [facility] 09[place]18[place] Estab. patient 30-39min; chronic exacerbation, 2 stable chronic or 1 acute illness add add modifier 95 for video, (do not use for phone, instead use 46565-54) [facility] 09[place]18/2023 Estab. patient 30-39min; chronic exacerbation, 2 stable chronic or 1 acute illness add add modifier 95 for video, (do not use for phone, instead use 79374-73) [facility] 09[place]18[place]2023 No Data Available [facility]2024 Morbid (severe) obesity due to excess caloriesBariatric surgery statusType 2 diabetes w unsp diabetic retinopathy w macular edemaUnspecified urinary incontinenceUnspecified asthma, uncomplicatedObstructive sleep apnea (adult) (pediatric)Essential (primary) hypertensionBody mass index (BMI) 40.0-44.9, adultMajor depressive disorder, recurrent, mildOther problems related to medical facilities and other health careHeadache, unspecifiedOther chronic pain No Data Available [facility]24 No Data Available [facility] No Data Available [facility] No Data Available [facility] [place] No Data Available [facility] [place] No Data Available [facility] [place] 04[place]2024 No Data Available [facility] [place]/03/2024 Type 2 diabetes w unsp diabe tic retinopathy w macular edemaAllergic contact dermatitis due to plants, except foodEncounter for other specified aftercareOther problems related to medical facilities and other health careLong term (current) use of insulin No Data Available [facility] [place] 05/03/2024 No Data Available [facility] 08[place]/2024 Flu due to unidentified influenza virus w oth resp manifestPersons encountering health services in other specified circumstancesOther problems related to medical facilities and other health care No Data Available [facility] [place]2024 No Data Available [facility] [place] 08/[place]/20[place] Estab. patient 10-29min; 1 minor problem; add add modifier 95 for video, modifier 93 for phone [facility] [place] 09/22/2024 Type 2 diabetes w unsp diabe tic retinopathy w macular edemaUnspecified asthma, uncomplicatedObstructive sleep apnea (adult) (pediatric)Body mass index (BMI) 40.0-44.9, adultOther problems related to medical facilities and other health care Estab. patient 10-29min; 1 minor problem; add add modifier 95 for video, modifier 93 for phone [facility]/22/20[place] Estab. patient 10-29min; 1 minor problem; add add modifier 95 for video, modifier 93 for phone [facility] 09/22/2024 Estab. patient 10-29min; 1 minor problem; add add modifier 95 for video, modifier 93 for phone [facility] 09/22/2024 Estab. patient 10-29min; 1 minor problem; add add modifier 95 for video, modifier 93 for phone [facility] 10/21/2024 Unspecified urinary [...] tive Time Current Smoking Status Former smoker 6 Sex Female History of Procedures Procedures Service Procedure code Service date Servicing provider Phone# No Data Available [id number] 2023-04-09 No Data Available No Data Available [...] 95 for video, modifier 93 for phone [id number] 2023-05-06 No Data Available No Data Availa [...] No Data Carli ilable No Data Available [id number] 2023-06-16 No Data Available No Data Available Medication List Documented (1159F) 1159F 2023-06-16 No Data Available No Data Carli ilable Pain Assessment - Pain Documented on a Pain Scale (1125F) 1125F 2023-06-16 No Data Available No Data Carli ilable BMI obtained (3008F) 3008F 2023-06-16 No Data Availab le No Data Available No Data Available [id number] 2023-07-08 No Data Available No Data Available Medication List Documented (1159F) 1159F 2023-07-08 No Data Available No Data Carli ilable Estab. patient 30-39min; chronic exacerbation, 2 stable chronic or 1 acute illness add add modifier 95 for video, (do not use for phone, instead use 01265-25) [id number] 2023-07-15 No Data Available No Data Availa [...] No Data Carli ilable No Data Available [id number] 2023-08-14 No Data Available No Data Available Medication List Documented (1159F) 1159F 2023-08-14 No Data Available No Data Carli ilable No Data Available [id number] 2023-09-09 No Data Available No Data Available No Data Available [id number] 2023-09-10 No Data Available No Data Available Medication List Documented (1159F) 1159F 2023-09-10 No Data Available No Data Carli ilable Estab. patient 30-39min; chronic exacerbation, 2 stable chronic or 1 acute illness add add modifier 95 for video, (do not use for phone, instead use 06944-22) [id number] 2023-09-18 No Data Available No Data Availa [...] No Data Avail able No Data Available [id number] 2024-04-21 No Data Available No Data Available [...] le No Data Available No Data Available [id number] 2024-05-03 No Data Available No Data Available Medication List Documented (1159F) 1159F 2024-05-03 No Data Available No Data Carli ilable No Data Available [id number] 2024-08-26 No Data Available No Data Available [...] 95 for video, modifier 93 for phone [id number] 2024-09-22 No Data Available No Data Availa [...] 95 for video, modifier 93 for phone [id number] 2024-10-21 No Data Available No Data Availa [...] Patient Education to avoid future hospitalization: Call [facility] if symptoms of illness develop.History of [...] units TID AC meals and FU with network control supervisor in February,Wears rafaela paduses inhaler Flovent BIDHas [...] units TID AC meals and FU with network control supervisor in February,Wears rafaela padNeeds chux pads, XL pull-ups, gloves XLuses inhaler Flovent BIDHas CPAP using nightlyContinue lovenox as directedAdvancing home PTencouraged UE activity as toleratedHas not been taking BP medication since surgery 2 months ago on broken footApril 2022 had a bad fall on steps at entrance to home. Fractured L foot, L?knee, L shoulderStill unable to walkUsing wheelchairNow [facility] productsEscitalopramRex think about whether she wants a therapist 2023-06-15 13:39:58 Phone (patient, pare nt, or guardian); 5-10 minutes of medical discussion (no modifier 95)Continue to see PCP. Follow-up with [facility] as needed for any acute or disease education needs that may arise 23/03.November 2022 had a bad fall on steps at entrance to home. Fractured L foot, L?knee, L shoulderStill unable to walkUsing btgspunjtn72/16/2023er son, can only walk very short distances [...] unable to walkUsing wheelchairNow [facility], can only walk very short [...] and we need videocall. Tablet needs a automotive paint technician, will send and schedule videocall for next [...] unable to walkUsing wheelchairNow having [facility], can only walk very short [...] to PT but after she returns from [place] in .Can start in October. 2023-08-14 12:38:06 [...] unable to walkUsing wheelchairNow [facility]er son, can only walk very short [...] and we need videocall. Tablet needs a automotive paint technician, will send and schedule videocall for next [...] 09/10/23.UPDATE 09/10/2023t has not yet gone to picker / packer prescription. Feels about the same. Education about [...] 09/10/23.UPDATE 09/10/2023t has not yet gone to picker / packer prescription. Feels about the same. Education about [...] unable to walkUsing wheelchairNow [facility], can only walk very short [...] and we need videocall. Tablet needs a automotive paint technician, will send and schedule videocall for next [...] units TID AC meals and FU with network control supervisor Reports stableWears rafaela padNeeds chux pads, XL pull-ups, gloves XLuses inhaler Flovent BIDHas CPAP using nightlyContinue lovenox as directedAdvancing home PTencouraged UE activity as toleratedHas not been taking BP medication aftersurgery on broken footUPDATE 09/18/2023eports compliance nowApril 2022 had a bad fall on steps at entrance to home. Fractured L lower leg, L shoulderStill unable to walkUsing wheelchairNow [facility]er son, can only walk very short [...] and we need videocall. Tablet needs a automotive paint technician, will send and schedule videocall for next week.Having some pain on her left knee, this is not new, Will FU w video.08/14/2023 Has not heard from [facility] but has not been home. Will see if they have called or if it has arrived and will let us know.08/21/2023 ordered in-home eval for [facility]ooter09/10/2023Need to do videocall so need to schedule [...] 09/10/23.UPDATE 4Pt has not yet gone to picker / packer prescription. Feels about the same. Education about [...] individual diagnosis for contingency plan.previously diagnosed [facility] painstable 2024-04-21 09:19:41 Phone (patient, pare nt, or guardian); 5-10 minutes of medical discussion (no modifier 95)Continue to see PCP. Follow-up with [facility] as needed for any acute or [...] units TID AC meals and FU with network control supervisor Reports stableWears rafaela padNeeds chux pads, XL [...] thinking about going to the ER? ResolvedNext [facility] scheduled appt/call: Patient education provided: Y lynn call us if similar situation arises in future. Avoid this plant in the futureHow else can we help? Refill (See DM)Member trained on use of ? [employer]? for urgent needs and provided with [facility] phone # as an alternative method to [...] units TID AC meals and FU with network control supervisor Reports stable09/22/24feels well, denies hypo/hyperglycemic episodescontinues to use CGM and insulin pump A1c 6.9 05/24/24uses inhaler Flovent BIDuses nebulizer 09/22/24denies SOBHas CPAP using nightlyCOPD CONTINGENCY PLANLast updated: 09/22/2024[facility] the following symptoms: Increased [...] incontinence supplies ordered 2 months ago by [facility] cc, but has not received yet. [...]
--- OUTSIDE RECORDS SUMMARY | 2024-11-03 15:45 | XMS_ITS | Encounter Summary ---
Author Organization [employer] Address [address] [place] [address] Care Team Providers Care Scrap Baler Name Role Phone Radha Bran MD Primary Care Provider + Reason for Visit * Reason Onset Date Comments Nurse Triage 11/03/2024 Encounter Details Date Type Department Care Team ([facility] st Contact Info) Description 11/03/2024 Telephone [facility] [address] [place] [address] Radha Bran MD [address] [place] [address] Nurse Triage Social History Tobacco Use Types Packs/Day Years [...] encounter Miscellaneous Notes * Telephone Encounter - Madisyn Stearns RN - 11/03/2024 1:00 PM EST Called pt. Via [email or web address] gear shaper set up operator [id number] [address]. Pt. States that she has been having weakness x a couple months. Pt. States she has been staying home and not going anywhere x 2 months. Pt states she is currently at an appt. With general surgeon that she had her bariatric surgery done. Pt. States her Blood sugars have been good lately. Pt. States she has appt with PCP in November 2024 but she wants to add ress this concern sooner. Appt. Given for today at 245pm with Dr. Silveira. Protocol Used: Weakness (Generalized) and Fatigue (Adult) Protocol-Based Disposition: See in Office or Video Visit within 2 Weeks-appt. Today at 245pm. Dr. Silveira Positive Triage Questions: * Weakness is a chronic symptom (recurrent or ongoing AND lasting > 4 weeks) * Fatigue is a chronic symptom (recurrent or ongoing AND present > 4 weeks) * All higher-acuity triage questions were negative Care Advice Discussed: * Drink Fluids * Rest * Cool Off * Telephone Encounter - Terrie Barbour - 11/03/2024 12:40 PM EST Symptom: Weakness Outcome: Schedule an urgent appointment (within 1 hour) or talk to a nurse or provider soon Reason: Started within the past 3 days The caller accepted this outcome. [phone] polish documented in this encounter Plan of Treatment Upcoming Encounters Date Type Department Care Team (Late st Contact Info) Description 12/15/2024 10:30 AM EDT Office Visit [facility] [address] [place] [address] Radha Bran MD [address] [place] [address] documented as of this encounter Visit Diagnoses Not on filedocumented in this encounter Additional Health Concerns Assessment Noted Time PHQ-9 Depression Total Score: 13 10/27/ 024 10:37 AM EST documented as of this encounter Care Teams Scrap Baler Relationship Specialty Start Date End Date Radha Bran MD [address] [place] [address] PCP - General Family Medicine 10/16/20 documented as of this encounter
--- OUTSIDE RECORDS SUMMARY | 2024-11-03 15:45 | XMS_ITS | Encounter Summary ---
Author Organization [employer] Address [address] [place] [address] Care Team Providers Care Dinker Name Role Phone Radha Bran MD Primary Care Provider + Reason for Visit * Reason Onset Date Comments Chart Prep 11/02/2024 Encounter Details Date Type Department Care Team ([facility] st Contact Info) Description 11/02/2024 Telephone [facility] [address] [place] [address] Radha Bran MD [address] [place] [address] Chart Prep Social History Tobacco Use Types Packs/Day Years [...] encounter Miscellaneous Notes * Telephone Encounter - Frederick Ferris MA - 11/02/2024 2:39 PM EST ER documented in this encounter Plan of Treatment Upcoming Encounters Date Type Department Care Team (Late st Contact Info) Description 12/15/2024 10:30 AM EDT Office Visit [facility] [address] [place] [address] Radha Bran MD [address] [place] [address] documented as of this encounter Visit Diagnoses Not on filedocumented in this encounter Additional Health Concerns Assessment Noted Time PHQ-9 Depression Total Score: 13 024 10:37 AM EST documented as of this encounter Care Teams Dinker Relationship Specialty Start Date End Date Radha Bran MD [address] [place] [id number] PCP - General Family Medicine 10/16/20 documented as of this encounter
--- OUTSIDE RECORDS SUMMARY | 2024-11-03 15:45 | XMS_ITS | Encounter Summary ---
Author Organization [employer] Address [address] [place] [address] 7 [place] [address] Care Team Providers Care Creel Hand Name Role Phone Radha Bran MD Primary Care Provider + Reason for Referral * Consultation (Routine) - Pending Review Specialty Diagnoses / Procedures Referred By Nan jara Referred To Contact Cardiology Diagnoses Palpitation SOB (shortness of breath) on exertion Malia Franklin MD [address] [place] [address] Phone: tel: fax: Referral ID Status Reason Start Date Expiration Date Visits Requested Visits Authorized [id number] Pending Review Specialty Services Required 11/03/2024 11/03/2025 1 1 Encounter Details Date Type Department Care Team (Late st Contact Info) Description 11/03/2024 2:45 PM EST Office Visit [facility] [address] [place] [phone] Malia Franklin MD [address] [place], [place] [phone] Palpitation (Primary Dx); SOB (shortness of breath) on exertion; Chronic fatigue Social History Tobacco Use Types Packs/Day Years [...] Description 12/15/2024 10:30 AM EDT Office Visit [facility] [address] [place] [address] Radha Bran MD [address] [place] [address] Scheduled Orders Name Type Priority Associated Diagnoses Orde r Schedule CBC auto differential Lab Routine Chronic fatigue Expected: 11/03/2024 (Approximate), Expires: 11/03/2025 Comprehensive Metabolic Panel Lab Routine Chronic fatigue Expected: 11/03/2024 (Approximate), Expires: 11/03/2025 HIV-1/2 Antigen and Antibodies, Fourth Generation, with Reflexes Lab Routine Chronic fatigue Expected: 11/03/2024 (Approximate), Expires: 11/03/2025 Hepatitis C Antibody with Reflex to HCV, RNA, Quantitative, Real-Time PCR Lab Routine Chronic fatigue Expected: 11/03/2024, Expires: 11/03/2025 Lipid Panel, Standard Lab Routine Chronic fatigue Expected: 11/03/2024 (Approximate), Expires: 11/03/2025 Vitamin D, 25-Hydroxy, Total, Immunoassay Lab Routine Chronic fatigue Expected: 11/03/2024 (Approximate), Expires: 11/03/2025 TSH with Reflex to Free T4 Lab Routine Chronic fatigue Expected: 11/03/2024 (Approximate), Expires: 11/03/2025 C-reactive Protein Lab Routine Chronic fatigue Expected: 11/03/2024 (Approximate), Expires: 11/03/2025 Cyclic Citrullinated Peptide (CCP) Antibody (IgG) Lab Routine Chronic fatigue Expected: 11/03/2024 (Approximate), Expires: 11/03/2025 Sed Rate by Modified Westergren Lab Routine Chronic fatigue Expected: 11/03/2024, Expires: 11/03/2025 RADHA Screen,IFA, with Reflex to Titer and Pattern Lab Routine Chronic fatigue Expected: 11/03/2024 (Approximate), Expires: 11/03/2025 Vitamin B12/Folate, Serum Panel Lab Routine Chronic fatigue Expected: 11/03/2024, Expires: 11/03/2025 Iron And Total Iron Binding Capacity Lab Routine Chronic fatigue Expected: 11/03/2024, Expires: 11/03/2025 Ferritin Lab Routine Chronic fatigue Expected: 11/03/2024, Expires: 11/03/2025 Scheduled Referrals Name Type Priority Associated Diagnoses Order Schedule Referral to Cardiology Outpatient Referral Routine Palpitation SOB (shortness of breath) on exertion Expected: 11/03/2024 (Approximate), Expires: 11/03/2025 documented as of this encounter Visit Diagnoses Diagnosis Palpitation- Primary Palpitations SOB (shortness of breath) on exertion Shortness of breath Chronic fatigue Other malaise and fatigue documented in this encounter Additional Health Concerns Assessment Noted Time PHQ-9 Depression Total Score: 13 10/27/ 024 10:37 AM EST documented as of this encounter Care Teams Creel Hand Relationship Specialty Start Date End Date Shant, Catherine, MD [address] [place] [phone] PCP - General Family Medicine 10/16/20 documented as of this encounter
--- OUTSIDE RECORDS SUMMARY | 2024-11-03 15:46 | XMS_ITS | Clinical Summary ---
Author Organization [employer] Address [address] [facility] 7t [place] [address] Care Team Providers Care Hogshead Press Operator Name Role Phone Radha Bran MD Primary [...] Active Blood Pressure Monitoring (Blood Pressure Cuff) [facility] blood pressure test kit-large cuff USE DIRECTED [...] (endocrinology refills) 10 mL 3 10/12/19 24 Active acetaminophen (Tylenol) 500 MG tabletIndicatio ns:Encounter for preventive health examination,Cornel waggoner Take 1-2 tablets (500-1,000 mg) by mouth every 6 (six) hours if needed for mild pain. 120 tablet 10/12/19 24 Active hydrOXYzine pamoate (Vistaril) 25 MG capsule [...] 15 mL 3 05/04/20 24 025 Active gabapentin (Neurontin) 100 MG capsuleIndicati ons:Type I or II open displaced comminuted fracture of shaft of left tibia with routine healing, subsequent encounter TAKE 1 CAPSULE(100 MG) BY MOUTH EVERY 12 HOURS 60 capsule 3 08/08/20 24 Active escitalopram (Lexapro) 20 MG tablet TAKE 1 TABLET(20 MG) BY MOUTH EVERY DAY 30 tablet 3 10/03/19 25 Active ergocalciferol (Vitamin D-2) 1.25 MG (85389 UT) capsule Take 1 capsule (1.25 mg) by mouth 1 (one) time per week. 12 capsule 1 10/20/19 24 025 Active Problems Problem Noted Date Diagnosed Date SOB (shortness of breath) on exertion 11/03/2024 Chronic fatigue 11/03/2024 Tinea corporis 05/04/2024 Assessment & Plan (05/04/2024 [...] daily 1 more week. Will refer to [facility] for assistance to move to a housing [...] intervention , [facility], Comply with medication , Patient to engage in OP therapy , Patient to reach out to [facility] as needed, and Patient to [...] better controlled She has an appointment w/ sexual health physician in the next 2 wks Continue Humalog + Lantus 24 units + Mounjaro Counseled re more frequent low calorie/carb meals. Check fgstk daily Encouraged physical activity as tolerated. FU w/ sexual health physician Assessment & Plan (10/12/2023 2:48 PM EST): [...] units TID AC meals and FU with sexual health physician in February, she will fu with me in 12 weeks Assessment & Plan (01/09/2023 11:10 AM EDT): Uncontrolled. Increase Lantus to 30 units per day and no other medication changes, follow up with sexual health physician. Assessment & Plan (09/24/2022 10:50 AM EST): Uncontrolled. A1C is worse than last month. Most likely related to acute URI at this time. No change in medications, FU closely with sexual health physician. COVID-19 09/24/2022 Assessment & Plan (09/24/2022 10:51 [...] covid test is positive. Lesion of right [place] 09/24/2022 Assessment & Plan (09/24/2022 10:53 [...] Plan (01/09/2023 11:08 AM EDT): Ref[facility] to a handicap [...] she seems to be overdue for Avapro belt picker. Continue Avapro 75mg and fu with me [...] Encounters Date Type Department Care Team Description 11/03/2024 2:45 PM EST Office Visit [facility] [address] [place] [address] Malia Franklin MD Palpitation (Primary Dx); SOB (shortness of breath) on exertion; Chronic fatigue 11/03/2024 Travel 11/03/2024 Telephone [facility] [address] [place] [address] Radha Bran MD Nurse Triage 11/02/2024 Telephone [facility] [address] [place] [address] Radha Bran MD Chart Prep 11/02/2024 Orders Only GENERIC EXTERNAL DATA DEPARTMENT Provider, Generic External Data 10/01/2024 Refill [facility] [address] [place] [phone] Radha Bran MD 09/21/2024 Orders Only GENERIC EXTERNAL DATA DEPARTMENT Provider, Generic External Data 09/08/[address] [address] Radha Bran MD Durable Medical Equipment 09/06/2024 Telephone [facility] [address] [place] [phone] Radha Bran MD Durable Medical Equipment 08/29/[address] [address] Kennedi Calix RN f/u call 08/25/2024 Orders Only [address] [address] Radha Bran MD 08/24/2024 Orders Only GENERIC EXTERNAL DATA DEPARTMENT Provider, Generic External Data 08/19/2024 Telephone [facility] [address] [place] [phone] Radha Bran MD Durable Medical Equipment 08/11/[address] [address] Radha Bran MD Durable Medical Equipment ([facility] DME Request: Incontinence supplies) 08/08/2024 Refill [facility] [address] [place] [phone] Radha Bran MD Type I or II open displaced comminuted fracture of shaft of left tibia with routine healing, subsequent encounter from Last 3 Months Immunizations Name Administration [...] 05/04/2024 11:34 AM EDT Plan of Treatment Upcoming Encounters Date Type Department Care Team (Late st Contact Info) Description 12/15/2024 10:30 AM EDT Office Visit [facility] [address] [place] [address] Radha Bran MD [address] [place] [address] Health Maintenance Due Date Last Done Comments CT Colonography 1952 Dental Oral Exam 1952 Dental Prophylaxis 1952 Dental X-Ray: Bitewings 1952 Dental X-Ray: Full Mouth 1952 FIT DNA/Cologuard 1952 FIT 1952 FOBT 1950 Sigmoidoscopy 1952 Eye Exam 1962 Alcohol/Substance Use Screening 1964 RSV Patients and Patients Aged 60 years or older (1 - Risk 60-74 years 1-dose series) 2012 Mammogram 11/27/2023 11/26/2021, 10/30, 11/26/2021, Additional history exists Depression Monitoring (PHQ-9) [...] Vaccines Completed 07/09/2018, 09/17/2017, 01/31/2014 Pneumococcal Vaccine: 50+ Years Completed 06/04/2020, 07/09/2018, 05/21/2017, Additional history [...] WHOLE BLOOD Routine 11/02/2024 1:25 PM EST GLUCOSE, WHOLE BLOOD Routine 09/21/2024 1:18 PM [...] Maintenance Results * (ABNORMAL) Glucose, Whole Blood (11/02/2024 1:25 PM EST) Only the most recent of2 resultswithin the time period is included. Glucose, Whole Blood 145(H) 60 - 115 mg/dL [facility] Comment:METER #: [id number] Testing performed in the Endocrinology Department [address] , [address], [facility]. 11/02/2024 1:2 5 PM EST 11/02/2024 1:30 PM EST us Generic External Data Provider LAB BLOOD ORDERAB LES Final Result [facility] [address] [place] [address] [phone] * XR Chest 1 View (08/24/2024 12:50 AM EST) Anatomical Region Laterality Modality Chest Radiographic [place] ging 08/24/2024 12:5 0 AM EST Narrative 08/24/2024 1:00 AM EST ? [facility] ?[address] ?[place] [address] ?XRay Report ? Signed ? Patient: Halley Sewell ?MR#: M ?? [id number] ? : 1950 ?Acct:[id number] ? Age/Sex: 74 / F ?ADM Date: 12/25/24 ? Loc: HO.ED ? Attending Dr: ? Ordering Physician: Generic ED Physician ?? Date of Service: 12/25/24 ?? Procedure(s): XR chest 1V ?? Accession Number(s): [id number] ? cc: Radha Bran MD; Generic ED [...] DD/ 0050 ? TD/TT: 08/24/24 0051 ? Lens Cutter: SS ? Procedure Note Donemmettter, Image - 08/24/2024 [place] [address] XRay Report Signed Patient: Kyrie Sewell#: M [id number] : 1950cct:[id number] Age/Sex: 74 / FADM Date: 08/24/24 Loc: .ED Attending Dr: Ordering Physician: Generic ED Physician Date of Service: 08/24/24 Procedure(s): XR chest 1V Accession Number(s): [id number] cc: Radha Bran MD; Generic ED Physician [...] Patrice Jones MD in OV> 08/24/2456 DD/ 0050 TD/TT: 08/24/24 005 Lens Cutter: SS us [facility] External Provider IMG XR PROCEDURES Final Result * (ABNORMAL) Influenza A B2 ID NOW (Polo) (08/24/2024 12:37 AM EST) IDNOW SERIAL# [id number] [facility] Influenza A Positive(A) Negative [facility] Influenza B2 Negative Negative [facility] Influenza A B2 Note See Note [facility] Comment:The Polo ID NOW In [...] GENERAL ORDERABLES Final Result Performing Organization Address City/State/[facility] Co de Phone Number [facility] [address] [place] [phone] * COVID-19 ID NOW (POLO) (08/24/2024 12:37 AM EST) Pathologist [facility] IDNO SERIAL# [id number] [facility] COVID-19 TEST Negative Negative [facility] COVID-19 NOTE See Note [facility] Comment: Results are for the identification of SARS-CoV2 RNA. TheSARS-CoV2 RNA is generally detectable in respiratory samplesduring the acute phase of infection. Positive results areindicative of the presence of SARS-CoV-2 RNA; clinicalcorrelation with patient history and other diagnosticinformation is necessary to determine patient infectionstatus. Positive results do not rule out bacterial infectionor co- infection with other viruses.Testing facilities within the [facility] and itsterritories are required to report all [...] use by authorized laboratories.Testing performed on the [employer] ID NOW utilizing NAAT. 08/24/2024 12:3 7 AM EST 08/24/2024 12:43 AM EST [employer] External Data Provider LAB MOLECULAR SONIA GNOSTICS ORDERABLES Final Result Performing Organization Address [facility]/ZIP Co de Phone Number [facility] [address] [place] [phone] * (ABNORMAL) Hemoglobin A1c (05/24/2024 11:53 AM EDT) Hemoglobin A1c 6.9(H) <6.0 % [facility] Comment:Hemoglobin A1C Refer ence Range Adults: 4.8 - 6.0 % Non diabetic: < 6.0 % Goal: < 7.0 %Additional Action Suggested: > 8.0 %Note: Hemoglobin A1c results are invalid for patients with abnormal amounts of HbF. Blood transfusions may impact the HbA1c concentration in the patient sample. Estimated Average Glucose 151 mg/dL [facility] Comment:eAG = Estimated ave rage glucose which is %A1C expressed asaverage glucose, using the formula of the X6Q-[id number] Glucose study (ADAG), Diabetes Care, Vol.31,#8,Mar. 2007 05/24/2024 11:5 3 AM EDT 05/24/2024 11:53 AM EDT Generic External Data Provider LAB BLOOD ORDERAB LES Final Result Performing Organization Address City/[facility]/ZIP Co de Phone Number [facility] [address] [place] [address] [phone] * (ABNORMAL) Protein Creatinine Ratio, Urine (03/22/2024 12:15 PM EDT) Creatinine, Urine 230.20 mg/dL [facility] Protein, Total, Random Urine 39(H) <12 mg/dL [facility] Protein/Creati nine Ratio, Ur 0.17 <0.2 [facility] Comment:The spot urine prote in:creatinine ratio may increase to 0.3during normal . 03/22/2024 12:1 5 PM EDT 03/22/2024 1:23 PM EDT us Generic External Data Provider LAB URINE ORDERAB LES Final Result [facility] [address] [place] [address] [phone] * Lipid Panel with Reflex to Direct LDL (10/20/2023 8:42 AM EST) Triglycerides 145 <150 mg/dL [facility] Comment:Desirable Triglyceri de: less than 150 mg/dLBorderline High Triglyceride 150-199 mg/dLHigh Triglyceride: 200-499 mg/dLVery High Triglyceride: greater than or equal to 5OO mg/dL Cholesterol 161 <200 mg/dL [facility] Comment:Desirable Cholestero l: less than 200 mg/dLBorderline High Cholesterol: 200-239 mg/dLHigh Cholesterol: greater than 239 mg/dL LDL Cholesterol Calculated 86 <100 mg/dL [facility] Comment:Desirable LDL: less than 100 mg/dLNear Optimal/Above Optimal LDL: 110- 129 mg/dLBorderline High LDL: 130-159 mg/dLHigh LDL: 160-189 mg/dLVery High LDL: greater than or equal to 190 mg/dL HDL Cholesterol 46 >40 mg/dL [facility] Comment:Desirable HDL: great er than 40 mg/dL Note: This HDL assay may give artificially low results in patients with liver disease. Blood 10/20/2023 8:42 AM EST 10/20/2023 8:42 AM EST Radha Bran MD LAB BLOOD ORDERABLES Fin al Result Performing Organization Address [facility] Co de Phone Number [facility] [address] [place] [address] [phone] * Hepatitis Panel, General (10/20/2023 8:42 AM EST) Hepatitis A IgM Nonreactive Nonreactive [facility] Comment:IgM antibodies to CARIAS V not detected; does not exclude earlyacute or recovered HAV infection. ~Hepatitis B Surface Antibody NONREACTIVE Nonreactive [facility] Comment:Nonreactive: < 8.00 mIU/mL Hepatitis B Core Antibody Nonreactive Nonreactive [facility] Hepatitis C Antibody Nonreactive Nonreactive [facility] Comment:Antibodies to HCV no t detected; does not exclude early acuteHCV infection. Hepatitis B Surface Ag Negative Negative [facility] Blood 10/20/2023 8:42 AM EST 10/20/2023 8:42 AM EST Radha Bran MD LAB BLOOD ORDERABLES Fin al Result Performing Organization Address [facility] Co de Phone Number [facility] [address] [place] [address] [phone] * Mammography (11/26/2021) Mammogram performed Anatomical Region Laterality Modality Other Historical Provider HEALTH MAINTENANCE Final Result * Colonoscopy (10/04/2019) Colonoscopy performed Historical Provider HEALTH MAINTENANCE Edited Result - Final from Last 3 Months or Most Recently Relevant to Health Maintenance Insurance [facility] STANDARD UHC DUAL COMPLETE DENTAL - [facility] Care Teams Hogshead Press Operator Relationship Specialty Start Date End Date Radha Bran MD [address] [place] [phone] PCP - General Family Medicine 10/16/20
--- OUTSIDE RECORDS SUMMARY | 2024-11-03 15:46 | XMS_ITS | Encounter Summary ---
Author Organization [employer] Address [address] [facility] 7t [place] [address] Care Team Providers Care Filler Spreader Name Role Phone Radha Bran MD Primary Care Provider + Reason for Visit * Reason Onset Date Comments Durable Medical Equipment 10/08/2023 Encounter Details Date Type Department Care Team ([facility] st Contact Info) Description 10/08/2023 Telephone [facility]INE [address] [place] [address] Radha Bran MD [address] [place] [address] Durable Medical Equipment Social History Tobacco Use [...] if any questions contact Bunny Sow at [phone]. documented in this encounter Plan of Treatment Upcoming Encounters Date Type Department Care Team (Late st Contact Info) Description 12/15/2024 10:30 AM EDT Office Visit [facility]INE [address] [place] [address] Radha Bran MD [address] [place] [address] documented as of this encounter Visit Diagnoses Not on filedocumented in this encounter Care Teams Filler Spreader Relationship Specialty Start Date End Date Radha Bran MD [address] [place] [phone] PCP - General Family Medicine 10/16/20 documented as of this encounter
--- OUTSIDE RECORDS SUMMARY | 2024-11-03 15:46 | XMS_ITS | Encounter Summary ---
Author Organization [employer] Address [address] [place] [address] 7 [place] [address] Care Team Providers Care Spooler Operator Automatic Name Role Phone Radha Bran MD Primary Care Provider + Reason for Visit * Reason Onset Date Comments Letter for School/Work 10/16/2022 Encounter Details Date Type Department Care Team ([facility] st Contact Info) Description 10/16/2022 Telephone [facility]INE [address] [place] [address] Radha Bran MD [address] [place] [address] Letter for School/Work Social History Tobacco Use [...] Description 12/15/2024 10:30 AM EDT Office Visit [facility] [address] [place], [place] [phone] Radha Bran MD [address] [place] [address] documented as of this encounter Visit Diagnoses Not on filedocumented in this encounter Care Teams Spooler Operator Automatic Relationship Specialty Start Date End Date Radha Bran MD [address] [place], [place] [phone] PCP - General Family Medicine 10/16/20 documented as of this encounter
== END 2024-11-03 13:50 | disposition home or self-care (01) ==
PROVIDERS: PCP Internal Medicine; Visit Provider Physician Assistant Surgical
DX: E66.813 Obesity, class 3 (principal); Z68.41 Body mass index [BMI] 40.0-44.9, adult; Z90.3 Acquired absence of stomach [part of]; Z98.84 Bariatric surgery status
CPT/HCPCS: 99214; G2211

== ENCOUNTER → 2024-11-03 13:03 | Outpatient (BNVA) | payer OTHER, SELFPAY | PROVIDERS: PCP Internal Medicine; Visit Provider Physician Assistant Surgical | DX: E66.01 Morbid (severe) obesity due to excess calories (principal); Z98.84 Bariatric surgery status; Z68.41 Body mass index [BMI] 40.0-44.9, adult | CPT/HCPCS: 99212 ==

== ENCOUNTER 2024-11-09 07:50 | Outpatient (REF) | payer OTHER, SELFPAY ==
--- OUTSIDE RECORDS SUMMARY | 2024-11-09 07:54 | XMS_ITS | Encounter Summary ---
Author Organization [employer] Address [address] [facility] 7t [place] [address] Care Team Providers Care Silver Solution Mixer Name Role Phone Radha Bran MD Primary Care Provider + Encounter Details Date Type Department Care Team ([facility] st Contact Info) Description 08/25/2024 Orders Only [facility] MEDICINE [address] [place] [address] Radha Bran MD [address] [place] [address] Social History Tobacco Use Types Packs/Day Years [...] Description 12/15/2024 10:30 AM EDT Office Visit [facility] MEDICINE [address] [place] [phone] Radha Bran MD [address] [place] [phone] documented as of this encounter Visit Diagnoses Not on filedocumented in this encounter Additional Health Concerns Assessment Noted Time PHQ-9 Depression Total Score: 13 024 10:37 AM EST documented as of this encounter Care Teams Silver Solution Mixer Relationship Specialty Start Date End Date Radha Bran MD [address] [place] [phone] PCP - General Family Medicine 10/16/20 documented as of this encounter
--- OUTSIDE RECORDS SUMMARY | 2024-11-09 07:55 | XMS_ITS | Encounter Summary ---
Author Organization [facility] Address [address] [address] 7 [place] [address] Care Team Providers Care Medical Professionals Name Role Phone Radha Bran MD Primary Care Provider + Encounter Details Date Type Department Care Team (Late st Contact Info) Description 07/28/2022 Abstract [facility] [address] [place] [phone] ProviderBritany MD Social History Tobacco Use Types [...] Description 12/15/2024 10:30 AM EDT Office Visit [facility] [address] [place] [address] Radha Bran MD [address] [place] [address] documented as of this encounter Visit Diagnoses Not on filedocumented in this encounter Care Teams Medical Professionals Relationship Specialty Start Date End Date Radha Bran MD [address] [place] [phone] PCP - General Family Medicine 10/16/20 documented as of this encounter
--- OUTSIDE RECORDS SUMMARY | 2024-11-09 07:55 | XMS_ITS | Encounter Summary ---
Author Organization [employer] Address [address] [place] [address] 7 [place] [address] Care Team Providers Care Personnel Records Clerk Name Role Phone Radha Bran MD Primary Care Provider + Encounter Details Date Type Department Care Team ([facility] Contact Info) Description 02/09/2023 [facility] Health Information Management [address] [place] [address] Radha Bran MD [address] [place] [address] Social History Tobacco Use Types Packs/Day Years [...] Upcoming Encounters Date Type Department Care Team ([facility] Contact Info) Description 12/15/2024 10:30 AM EDT Office Visit [facility]INE [address] [place] [address] Radha Bran MD [address] [place] [address] documented as of this encounter Visit Diagnoses Not on filedocumented in this encounter Care Teams Personnel Records Clerk Relationship Specialty Start Date End Date Radha Bran MD [address] [place] [address] PCP - General Family Medicine 10/16/20 documented as of this encounter
--- OUTSIDE RECORDS SUMMARY | 2024-11-09 07:55 | XMS_ITS | Encounter Summary ---
Author Organization [employer] Address [address] [facility] 7t [place] [address] Care Team Providers Care Needle Maker Name Role Phone Radha Bran MD Primary Care Provider + Reason for Visit * Reason Onset Date Comments Nurse Triage 11/03/2024 Encounter Details Date Type Department Care Team ([facility] st Contact Info) Description 11/03/2024 Telephone [facility] [address] [place] [address] Radha Bran MD [address] [place] [address] Nurse Triage Social History Tobacco Use Types [...] 11/03/2024 1:00 PM EST Called pt. Via [employer] educational sign language interpreter [phone] Blas. Pt. States that she has been [...] 3 days The caller accepted this outcome. [phone] georgian documented in this encounter Plan of Treatment Upcoming Encounters Date Type Department Care Team (Late st Contact Info) Description 12/15/2024 10:30 AM EDT Office Visit [facility] [address] [place] [address] Radha Bran MD [address] [place] [address] documented as of this encounter Visit Diagnoses Not on filedocumented in this encounter Additional Health Concerns Assessment Noted Time PHQ-9 Depression Total Score: 13 10/27/ 024 10:37 AM EST documented as of this encounter Care Teams Needle Maker Relationship Specialty Start Date End Date Radha Bran MD [address] [place] [address] PCP - General Family Medicine 10/16/20 documented as of this encounter
--- OUTSIDE RECORDS SUMMARY | 2024-11-09 07:55 | XMS_ITS | Data Portability ---
Author Organization [employer] [facility], [place] [facility] Address [address] [place] [phone] Care Team Providers Care Service Employee Name Role Phone [facility]IMARY [facility] Referring Provider [phone] [facility] Referring Provider Assessment Encounter Date Assessment Date Assessment LastModified by Organization Details LastModified Time 03/17/2022 03/17/2022 I have reviewed and agree with the Assessment and Plan as documented by the Mutual Fund Accountant. I provided real -time medical direction via [...] go to the ER- report called to [facility] [email or web address] Not available 03/18/2022 21:31:13 Plan of Treatment Reminders Order Date Submit Date Provider Last Modified By Organization Details Last Modified Time Details Appointments None recorded. Lab None recorded. Referral None recorded. Procedures None recorded. Surgeries None recorded. Imaging electrocard iogram 2021 022 [email or web address] 0 [facility], [address] [place] [address], [phone], 21:32:45 Medication Orders None recorded. Patient TargetsNo targets recorded. Patient InstructionsNo instructions recorded. Reason for Referral None Reported. Results Created Date Observation Date Name Description Value Unit Range Abnormal Flag Note LastModifiedBy Organization Detail LastModifiedTime 03/18/20 22 03/18/2022 elect doug dupontgr am No observ ation record ed. [email or web address] [address], [phone], 03/18/2022 21:32:33 Result Notes None recorded. Procedures Surgical History None recorded. Imaging Results Imaging Date Name Status LastModified by Organization Details LastModified Time 03/18/2022 electrocardiogram completed [email or web address] [address], [place], [phone], 03/18/2022 21:32:33 Procedure Notes None recorded. Medical [...] Address Organization Details Last Updated DateTime 2 367779. 2 g 157.48 cm 97.8 [degF] 97 [...] 2768 Chelsea Hernandez MD Main - [facility] [address] [place] [phone] 03/17/2022 16:53:01 05/13/2022 21:10:03 Chest pain 72136552 R07.9 Health Concerns Section Related Observation LastModified by Organization Detai ls LastModified Time None Recorded Concern Status LastModified by Organization Details LastModified Time None Recorded Advance Directives Directive None Recorded Payers Encounter Date Sequence Insurance Name Policy Number Policy Wagner Covered Member ID Wagner Member ID Guarantor Name 03/17/2022 1 [facility] - DOS PRIOR TO 2022 - DUAL ELIGIBLE (MEDICARE REPLACEMENT/ADV ANTAGE - HMO) Halley Ramon [id number] Halley Ramon Notes Date Note Type Note [...] ................... ................... ................... ................... ................... ................... ........ Mutual Fund Accountant Note: Sent to a call for a pt complaining of chest pain and sob. SC8 arrives on scene, pt arrives home in a van. Pt is alert and oriented. Airway is patent. Correctional Program Specialist line used for communication as pt's primary language is Andorran. Pt complains of left lateral neck pain [...] orders 12 lead ECG. [facility] advises pt to be transported to ED for further evaluation/treatmen t. Pt agrees. Pt care is transferred to [facility]. Pt transported to [facility]. ................... ................... ................... ................... ................... ................... ................... ........ Disposition: FulfilledSEGMD- as above-Pat seen at [facility] 03/06/22- was having neck pain and headache at the time-denied having CP or telling staff she had CP.- that started more recently. She finished the antibiotics- was also given albuterol, but she did not use it as it was making her nervous/ shakey//has minimal cough- clear phlegm. She reports she sees a jigger crown pouncing machine operator, but does not know her cardiac dx. Has hx obesity/ DM/ HTN/REY / panic d/o per old record. Quit smoking > 35 yrs ago- pat reports no known family hx CAD. Chelsea Hernandez MD [address] [facility],[address], [place], [phone], [employer] 03/18/2022 21:32:58 OBGyn Episode No OBEpisode recorded.
--- OUTSIDE RECORDS SUMMARY | 2024-11-09 07:55 | XMS_ITS | Clinical Summary ---
Author Organization [employer] Address [address] [facility] 7t [place] [address] Care Team Providers Care Processing Associate Name Role Phone Radha rBan MD Primary Care Provider + Allergies No [...] Active Blood Pressure Monitoring (Blood Pressure Cuff) [facility] blood pressure test kit-large cuff USE DIRECTED [...] 25 Active ergocalciferol (Vitamin D-2) 1.25 MG (65583 UT) capsule Take 1 capsule (1.25 mg) by mouth 1 (one) time per week. 12 capsule 1 10/20/19 24 025 Active Problems Problem Noted Date Diagnosed Date SOB (shortness of breath) on exertion 11/03/2024 Chronic fatigue 11/03/2024 Assessment & Plan (11/03/2024 4:18 PM EST): I advised healthy diet and exercise Blood work order patient will be contacted with results Tinea corporis 05/04/2024 Assessment & Plan (05/04/2024 [...] daily 1 more week. Will refer to [facility] for assistance to move to [...] intervention , [facility], Comply with medication , Patient to engage in OP therapy , Patient to reach out to [facility] as needed, and Patient to follow-up with [...] better controlled She has an appointment w/ public health nutritionist in the next 2 wks Continue Humalog + Lantus 24 units + Mounjaro Counseled re more frequent low calorie/carb meals. Check fgstk daily Encouraged physical activity as tolerated. FU w/ public health nutritionist Assessment & Plan (10/12/2023 2:48 PM EST): [...] units TID AC meals and FU with public health nutritionist in February, she will fu with me in 12 weeks Assessment & Plan (01/09/2023 11:10 AM EDT): Uncontrolled. Increase Lantus to 30 units per day and no other medication changes, follow up with public health nutritionist. Assessment & Plan (09/24/2022 10:50 AM EST): Uncontrolled. A1C is worse than last month. Most likely related to acute URI at this time. No change in medications, FU closely with public health nutritionist. COVID-19 09/24/2022 Assessment & Plan (09/24/2022 10:51 [...] covid test is positive. 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 Continue Avapro 75mg and fu with me [...] Description 11/03/2024 2:45 PM EST Office Visit [facility] [address] [place] [address] Malia Franklin MD Palpitation (Primary Dx); SOB (shortness of breath) on exertion; Chronic fatigue 11/03/2024 Travel 11/03/2024 Telephone [facility] MED[facility] [address] [place] [address] Radha Bran MD Nurse Triage 11/02/2024 Telephone [facility] MED[facility]INE [address] [place] [phone] Radha Bran MD Chart Prep 11/02/2024 Orders Only GENERIC EXTERNAL DATA DEPARTMENT Provider, Generic External Data 10/01/2024 Refill [facility] [address] [place] [address] Radha Bran MD 09/21/2024 Orders Only GENERIC EXTERNAL DATA DEPARTMENT Provider, Generic External Data 09/08/[address] [address] Radha Bran MD Durable Medical Equipment 09/06/[address] [address] Radha Bran MD Durable Medical Equipment 08/29/[address] [address] Kennedi Calix, RUSSELL f/u call 08/25/2024 Orders Only [facility] [address] [place] [address] Radha Bran MD 08/24/2024 Orders Only GENERIC EXTERNAL DATA DEPARTMENT Provider, Generic External Data 08/19/[address] [address] Radha Bran MD Durable Medical Equipment 08/11/[address] [address] Radha Bran MD Durable Medical Equipment ([facility] DME Request: Incontinence supplies) from Last 3 Months Immunizations Name Administration [...] Description 12/15/2024 10:30 AM EDT Office Visit [facility]INE [address] [place] [address] Radha Bran MD [address] [place] [address] Health Maintenance Due Date Last Done Comments [...] Whole Blood 145(H) 60 - 115 mg/dL [facility] Comment:METER #: [id number] Testing performed in the Endocrinology Department [address] , [address], [facility]. 11/02/2024 1:25 PM EST 11/02/2024 1:30 PM EST us Generic External Data Provider LAB BLOOD ORDERAB LES Final Result Performing Organization Address City/State/[facility] Co de Phone Number [facility] [address] [place] [address] [phone] * XR Chest 1 View (08/24/2024 12:50 AM EST) Anatomical Region Laterality Modality Chest Radiographic Mecca ging 08/24/2024 12:5 0 AM EST Narrative 08/24/2024 1:00 AM EST ? [facility] ?[address] ?[place] [address] ?XRay Report ? Signed ? Patient: Halley Sewell ?MR#: M ?? [id number] ? : 1950 ?Acct:[id number] ? Age/Sex: 74 / F ?ADM Date: 08/24/24 ? Loc: HO.ED ? Attending Dr: ? Ordering Physician: Generic ED Physician ?? Date of Service: 08/24/ ?? Procedure(s): XR chest 1V ?? Accession Number(s): [id number] ? cc: Radha Bran MD; Generic ED [...] by Patrice Jones MD in OV> ? 08/24/247 ? DD/ 0050 ? TD/TT: 08/24/24 0051 ? Stump Blower: SS ? Procedure Note Donotsimainterpreter, Image - 08/24/2024 [place] [address] XRay Report Signed Patient: Kyrie Sewell#: Buddy [id number] : 1950cct:[id number] Age/Sex: 74 / FADM Date: 08/24/24 Loc: HO.ED Attending Dr: Ordering Physician: Generic ED Physician Date of Service: 08/24/24 Procedure(s): XR chest 1V Accession Number(s): [id number] cc: Radha Bran MD; Generic ED Physician [...] by Patrice Jones MD in OV> 08/24/24 005 DD/ 0050 TD/TT: 08/24/24 0051 Stump Blower: SS [facility] External Provider IMG XR PROCEDURES Final Result * (ABNORMAL) Influenza A B2 ID NOW (Polo) (08/24/2024 12:37 AM EST) IDNOW SERIAL# [id number] [facility] Influenza A Positive(A) Negative [facility] Influenza B2 Negative Negative [facility] Influenza A B2 Note See Note [facility] Comment:The Polo ID NOW In fluenza [...] LAB MICROBIOLOGY - GENERAL ORDERABLES Final Result [facility] [address] [place] [phone] * COVID-19 ID NOW (POLO) (08/24/2024 12:37 AM EST) IDNOW SERIAL# [id number] [facility] COVID-19 TEST Negative Negative [facility] COVID-19 NOTE See Note [facility] Comment: Results are for the identification of SARS-CoV2 RNA. TheSARS-CoV2 RNA is generally detectable in respiratory samplesduring the acute phase of infection. Positive results areindicative of the presence of SARS-CoV-2 RNA; clinicalcorrelation with patient history and other diagnosticinformation is necessary to determine patient infectionstatus. Positive results do not rule out bacterial infectionor co- infection with other viruses.Testing facilities within the [facility] and itsterritories are required to report all [...] use by authorized laboratories.Testing performed on the [employer] NOW utilizing NAAT. 08/24/2024 12:3 7 AM EST 08/24/2024 12:43 AM EST Generic External Data Provider LAB MOLECULAR SONIA GNOSTICS ORDERABLES Final Result Performing Organization Address [facility]/ZIP Co de Phone Number [facility] [address] [place] [phone] * (ABNORMAL) Hemoglobin A1c (05/24/2024 11:53 AM EDT) Hemoglobin A1c 6.9(H) <6.0 % [facility] Comment:Hemoglobin A1C Refer ence Range Adults: 4.8 - 6.0 % Non diabetic: < 6.0 % Goal: < 7.0 %Additional Action Suggested: > 8.0 %Note: Hemoglobin A1c results are invalid for patients with abnormal amounts of HbF. Blood transfusions may impact the HbA1c concentration in the patient sample. Estimated Average Glucose 151 mg/dL [facility] Comment:eAG = Estimated ave rage glucose which is %A1C expressed asaverage glucose, using the formula of the M3J-[id number] Glucose study (ADAG), Diabetes Care, Vol.31,#8,Mar. 2007 05/24/2024 11:5 3 AM EDT 05/24/2024 11:53 AM EDT Generic External Data Provider LAB BLOOD ORDERAB LES Final Result Performing Organization Address [facility]/ZIP Co de Phone Number [facility] [address] [place] [phone] * (ABNORMAL) Protein Creatinine Ratio, Urine (03/22/2024 12:15 PM EDT) Creatinine, Urine 230.20 mg/dL [facility] Protein, Total, Random Urine 39(H) <12 mg/dL [facility] Protein/Creati nine Ratio, Ur 0.17 <0.2 [facility] Comment:The spot urine prote in:creatinine ratio may increase to 0.3during normal . 03/22/2024 12:1 5 PM EDT 03/22/2024 1:23 PM EDT us Generic External Data Provider LAB URINE ORDERAB LES Final Result [facility] [address] [place] [address] [phone] * Lipid Panel with Reflex to Direct LDL (10/20/2023 8:42 AM EST) Triglycerides 145 <150 mg/dL [facility] Comment:Desirable Triglyceri de: less than 150 mg/dLBorderline High Triglyceride 150-199 mg/dLHigh Triglyceride: 200-499 mg/dLVery High Triglyceride: greater than or equal to 5OO mg/dL Cholesterol 161 <200 mg/dL [facility] Comment:Desirable Cholestero l: less than 200 mg/dLBorderline High Cholesterol: 200-239 mg/dLHigh Cholesterol: greater than 239 mg/dL LDL Cholesterol Calculated 86 <100 mg/dL [facility] Comment:Desirable LDL: less than 100 mg/dLNear Optimal/Above Optimal LDL: 110- 129 mg/dLBorderline High LDL: 130-159 mg/dLHigh LDL: 160-189 mg/dLVery High LDL: greater than or equal to 190 mg/dL HDL Cholesterol 46 >40 mg/dL [facility] Comment:Desirable HDL: great er than 40 mg/dL Note: This HDL assay may give artificially low results in patients with liver disease. Blood 10/20/2023 8:42 AM EST 10/20/2023 8:42 AM EST Radha Bran MD LAB BLOOD ORDERABLES Fin al Result Performing Organization Address [facility] Co de Phone Number [facility] [address] [place] [phone] [phone] * Hepatitis Panel, General (10/20/2023 8:42 AM EST) Hepatitis A IgM Nonreactive Nonreactive [facility] Comment:IgM antibodies to CARIAS V not detected; does not exclude earlyacute or recovered HAV infection. ~Hepatitis B Surface Antibody NONREACTIVE Nonreactive [facility] Comment:Nonreactive: < 8.00 mIU/mL Hepatitis B Core Antibody Nonreactive Nonreactive [facility] Hepatitis C Antibody Nonreactive Nonreactive [facility] Comment:Antibodies to HCV no t detected; does not exclude early acuteHCV infection. Hepatitis B Surface Ag Negative Negative [facility] Blood 10/20/2023 8:42 AM EST 10/20/2023 8:42 AM EST Radha Bran MD LAB BLOOD ORDERABLES Fin al Result Performing Organization Address [facility] Co de Phone Number [facility] [address] [place] [phone] * Mammography (11/26/2021) Mammogram performed Anatomical Region Laterality Modality Other Historical Provider HEALTH MAINTENANCE Final Result * Colonoscopy (10/04/2019) Colonoscopy performed Historical Provider HEALTH MAINTENANCE Edited Result - Final from Last 3 Months or Most Recently Relevant to Health Maintenance Insurance [place] [employer] DUAL COMPLETE [facility] Care Teams Processing Associate Relationship Specialty Start Date End Date Radha Bran MD [address] [facility] [place] [address] PCP - General Family Medicine 10/16/20
--- OUTSIDE RECORDS SUMMARY | 2024-11-09 07:55 | XMS_ITS | Encounter Summary ---
Author Organization [employer] Address [address] [facility] [address] [place] [address] Care Team Providers Care Glass Carrier Name Role Phone Radha Bran MD Primary [...] Description 12/15/2024 10:30 AM EDT Office Visit [facility]INE [address] [place] [address] Radha Bran MD [address] [place] [address] documented as of this encounter Visit Diagnoses Not on filedocumented in this encounter Additional Health Concerns Assessment Noted Time PHQ-9 Depression Total Score: 13 024 10:37 AM EST documented as of this encounter Care Teams Glass Carrier Relationship Specialty Start Date End Date Radha Bran MD [address] [place] [phone] PCP - General Family Medicine 10/16/20 documented as of this encounter
--- OUTSIDE RECORDS SUMMARY | 2024-11-09 07:55 | XMS_ITS | Encounter Summary ---
Author Organization [employer] Address [address] [facility] 7t [place] [address] Care Team Providers Care User Support Specialist Name Role Phone Radha Bran MD Primary [...] t he electric, gas, oil or water [employer] threatened to shut off services in your [...] Description 12/15/2024 10:30 AM EDT Office Visit [facility] [address] [place], [place] [phone] Radha Bran MD [address] [place] [address] documented as of this encounter Procedures Procedure Name Priority Date/Time Associated Diagnosis Comments GLUCOSE, WHOLE BLOOD Routine 11/02/2024 1:25 PM EST documented in this encounter Results * (ABNORMAL) Glucose, Whole Blood (11/02/2024 1:25 PM EST) Glucose, Whole Blood 145(H) 60 - 115 mg/dL [facility] Comment:METER #: [id number] Testing performed in the Endocrinology Department [address], [address], [facility]. 11/02/2024 1:25 PM EST 11/02/2024 1:30 PM EST us Generic External Data Provider LAB BLOOD ORDERAB LES Final Result [facility] [address] [place] [address] [phone] documented in this encounter Visit Diagnoses Not on filedocumented in this encounter Additional Health Concerns Assessment Noted Time PHQ-9 Depression Total Score: 13 10/27/ 024 10:37 AM EST documented as of this encounter Care Teams User Support Specialist Relationship Specialty Start Date End Date Radha Bran MD [address] [place] [phone] PCP - General Family Medicine 10/16/20 documented as of this encounter
--- OUTSIDE RECORDS SUMMARY | 2024-11-09 07:55 | XMS_ITS | Encounter Summary ---
Author Organization [employer] [facility] Address [address] [place] [address] [address] [place] [address] Care Team Providers Care Hand Cloth Examiner Name Role Phone Radha Bran MD Primary Care Provider + Encounter Details Date Type Department Care Team (Late st Contact Info) Description 08/06/2022 Telephone [facility] MED[facility]INE [address] [place] [phone] Radha Bran MD [address] [place] [address] Social History Tobacco Use Types Packs/Day Years [...] Description 12/15/2024 10:30 AM EDT Office Visit [facility] [address] [place] [phone] Radha Bran MD [address] [place] [place] [phone] documented as of this encounter Visit Diagnoses Not on filedocumented in this encounter Care Teams Hand Cloth Examiner Relationship Specialty Start Date End Date Radha Bran MD [address] [place] [place] [phone] PCP - General Family Medicine 10/16/20 documented as of this encounter
--- OUTSIDE RECORDS SUMMARY | 2024-11-09 07:55 | XMS_ITS | Encounter Summary ---
Author Organization [employer] Address [address] [facility] 7 [place] [address] Care Team Providers Care Dinkey Press Operator Name Role Phone Radha Bran MD Primary Care Provider + Reason for Visit * Reason Onset Date Comments Chart Prep 11/02/2024 Encounter Details Date Type Department Care Team ([facility] st Contact Info) Description 11/02/2024 Telephone [facility] MEDICINE [address] [place] [address] Radha Bran MD [address] [place] [address] Chart Prep Social History Tobacco Use Types [...] Description 12/15/2024 10:30 AM EDT Office Visit [facility] MEDICINE [address] [place] [address] Radha Bran MD [address] [place] [address] documented as of this encounter Visit Diagnoses Not on filedocumented in this encounter Additional Health Concerns Assessment Noted Time PHQ-9 Depression Total Score: 13 024 10:37 AM EST documented as of this encounter Care Teams Dinkey Press Operator Relationship Specialty Start Date End Date Radha Bran MD [address] [place] [phone] PCP - General Family Medicine 10/16/20 documented as of this encounter
--- OUTSIDE RECORDS SUMMARY | 2024-11-09 07:55 | XMS_ITS ---
Author Name Maribel Vann NP Address [address] [place] [address] Phone [phone] [facility] Care Team Providers Care Director Of Strategic Alliances Name Role Phone Maribel Vann Unavailable [phone] [facility] Unavailable [phone] [place], [facility] Unavailable [phone] [place]/[facility] [place] Unavailable Unavailable Unavailable [phone] Unavailable Unavailable [phone] [employer] [employer] Unavailable [phone] Pedro Mohamud Unavailable [phone] Radha Bran Unavailable Reason for Referral Not Available Allergies, adverse reactions, alerts No known allergies History of medication use Medication Class Instructions Start Date End Date Fluocinolone Acetonide Body 0.01 % Oil APPLY BOTTLE TOPICALLY TO THE AFFECTED AREA IN THE MORNING 2022-08-13 No Data Available B-D KURTIS 2ND GEN PEN NDL [id number] USE TO INJECT FOUR TIMES DAILY 2022-08-28 [...] Data Available 2023-06-03 No D aries Available NibuTouch Verio Flex System w/Device Kit USE TO [...] time a day 2024-04-21 No Data Available Vigo Nasal [place] 0.65 % Solution Nasal 2 sprays intranasally [...] mg Tab Take 1 tablet by mo [facility] daily 2023-12-04 No Data Available CALCIUM [...] Active 2023-02-06 N/A Other problems related to ar dical facilities and other health care Active 2024-05-03 N/A Iron deficiency anemia Active 2023-02-06 N/A Encounters Encounters Type Facility Date of Service Diagnosis/Co mplaint No Data Available [facility] [place] 04[place]09[place]2023 Morbid (severe) obesity due to excess caloriesBody mass index (BMI) 40.0-44.9, adultType 2 diabetes w unsp diabetic retinopathy w macular edemaMajor depressive disorder, recurrent, mildIron deficiency anemia, unspecifiedUnspecified urinary incontinenceUnspecified asthma, uncomplicatedObstructive sleep apnea (adult) (pediatric)2-part nondisp fx of surg nk of l humer, 7thDEssential (primary) hypertensionHistory of fallingDifficulty in walking, not elsewhere classified No Data Available [facility] 04[place]09[place]2023 No Data Available [facility] 04/[place]2023 No Data Available [facility] 04/[place]/2023 No Data Available [facility] 04/[place]/2023 No Data Available [facility] 04/[place]/2023 No Data Available [facility] 04/09/2023 Estab. patient 20-29min; 1 stable chronic or 2 minor; add add modifier 95 for video, modifier 93 for phone [facility] 05/06/2023 Type 2 diabetes w unsp [...] 95 for video, modifier 93 for phone [facility] 05/06/2023 Estab. patient 20-29min; 1 stable chronic or 2 minor; add add modifier 95 for video, modifier 93 for phone [facility] 05/06/2023 Estab. patient 20-29min; 1 stable chronic or 2 minor; add add modifier 95 for video, modifier 93 for phone [facility] 05/06/2023 [facility] [place] [facility] History of fallingDifficulty in walking, not elsewhere classified No Data Available [facility] 06/15/2023 No Data Available [facility], [place]2023 History of fallingDifficulty in walking, not elsewhere classifiedPersonal history of (healed) traumatic fracture No Data Available [facility], ([place] 06/16/2023 No Data Available [facility] No Data Available [facility] No Data Available [facility]2023 Difficulty in walking, not elsewhere classifiedHistory of fallingPersonal history of (healed) traumatic fracture No Data Available [facility]20[place] Estab. patient 30-39min; chronic exacerbation, 2 stable chronic or 1 acute illness add add modifier 95 for video, (do not use for phone, instead use 04277-49) [facility]2023 Morbid (severe) obesity due to excess [...] (do not use for phone, instead use 46422-91) [facility]20[place] Estab. patient 30-39min; chronic exacerbation, 2 stable chronic or 1 acute illness add add modifier 95 for video, (do not use for phone, instead use 97877-89) [facility] 07[place]15/20[place] Estab. patient 30-39min; chronic exacerbation, 2 stable chronic or 1 acute illness add add modifier 95 for video, (do not use for phone, instead use 03771-52) [facility] 07[place]/2023 Estab. patient 30-39min; chronic exacerbation, 2 stable chronic or 1 acute illness add add modifier 95 for video, (do not use for phone, instead use 81835-38) [facility] 07/[place]/2023 No Data Available [facility] 08/14/2023 Morbid (severe) obesity due to excess caloriesBariatric surgery statusUnspecified asthma, uncomplicatedHistory of fallingDifficulty in walking, not elsewhere classifiedPersonal history of (healed) traumatic fracture No Data Available [facility] 08/14/2023 No Data Available [facility] 09/09/2023 Urinary tract infection, sit e not specified No Data Available [facility] 09[place]10/2023 Urinary tract infection, sit e not specifiedHistory of fallingDifficulty in walking, not elsewhere classifiedPersonal history of (healed) traumatic fracture No Data Available [facility] 09/10/2023 Estab. patient 30-39min; chronic exacerbation, 2 stable chronic or 1 acute illness add add modifier 95 for video, (do not use for phone, instead use 18269-67) [facility] 09/18/2023 Urinary tract infection, sit e not [...] (do not use for phone, instead use 37670-59) [facility] 09/18/2023 Estab. patient 30-39min; chronic exacerbation, 2 stable chronic or 1 acute illness add add modifier 95 for video, (do not use for phone, instead use 70180-91) [facility] 09[place]18[place]20[place] Estab. patient 30-39min; chronic exacerbation, 2 stable chronic or 1 acute illness add add modifier 95 for video, (do not use for phone, instead use 25743-67) [facility] 09/18/2023 Estab. patient 30-39min; chronic exacerbation, 2 stable chronic or 1 acute illness add add modifier 95 for video, (do not use for phone, instead use 02519-03) [facility] 09[place]18/2023 Estab. patient 30-39min; chronic exacerbation, 2 stable chronic or 1 acute illness add add modifier 95 for video, (do not use for phone, instead use 37354-07) [facility] 09[place]18/2023 Estab. patient 30-39min; chronic exacerbation, 2 stable chronic or 1 acute illness add add modifier 95 for video, (do not use for phone, instead use 97274-75) [facility] 09/18/2023 Estab. patient 30-39min; chronic exacerbation, 2 stable chronic or 1 acute illness add add modifier 95 for video, (do not use for phone, instead use 09834-59) [facility] 09/18/2023 Estab. patient 30-39min; chronic exacerbation, 2 stable chronic or 1 acute illness add add modifier 95 for video, (do not use for phone, instead use 78089-93) [facility] 09/18/2023 No Data Available [facility] 04[place]21/2024 Morbid (severe) obesity due to excess caloriesBariatric surgery statusType 2 diabetes w unsp diabetic retinopathy w macular edemaUnspecified urinary incontinenceUnspecified asthma, uncomplicatedObstructive sleep apnea (adult) (pediatric)Essential (primary) hypertensionBody mass index (BMI) 40.0-44.9, adultMajor depressive disorder, recurrent, mildOther problems related to medical facilities and other health careHeadache, unspecifiedOther chronic pain No Data Available [facility] 04[place]2024 No Data Available [facility] 04/[place]2024 No Data Available [facility] 04/21/2024 No Data Available [facility] [place] No Data Available [facility] [place] 04/[place]20[place] No Data Available [facility] [place] 04/21/2024 No Data Available [facility] [place] 05/03/2024 Type 2 diabetes w unsp diabe tic retinopathy w macular edemaAllergic contact dermatitis due to plants, except foodEncounter for other specified aftercareOther problems related to medical facilities and other health careLong term (current) use of insulin No Data Available [facility] [place] 05/03/2024 No Data Available [facility] 08/26/2024 Flu due to unidentified influenza virus w oth resp manifestPersons encountering health services in other specified circumstancesOther problems related to medical facilities and other health care No Data Available [facility] [place] 08/26/2024 No Data Available [facility] [place] 08/[place]/20[place] Estab. patient 10-29min; 1 minor problem; add add modifier 95 for video, modifier 93 for phone [facility] [place] 09[place]22/2024 Type 2 diabetes w unsp diabe tic retinopathy w macular edemaUnspecified asthma, uncomplicatedObstructive sleep apnea (adult) (pediatric)Body mass index (BMI) 40.0-44.9, adultOther problems related to medical facilities and other health care Estab. patient 10-29min; 1 minor problem; add add modifier 95 for video, modifier 93 for phone [facility] Estab. patient 10-29min; 1 minor problem; add add modifier 95 for video, modifier 93 for phone [facility] 09/22/2024 Estab. patient 10-29min; 1 minor problem; add add modifier 95 for video, modifier 93 for phone [facility] 09/22/2024 Estab. patient 10-29min; 1 minor problem; add add modifier 95 for video, modifier 93 for phone [facility] 10/21/2024 Unspecified urinary incontinenceOther [...] tive Time Current Smoking Status Former smoker 2024-10-29 2 Sex Female History of Procedures Procedures Service Procedure code Service date Servicing provider Phone# No Data Available [id number] 2023-04-09 No Data Available No Data Available [...] 95 for video, modifier 93 for phone [id number] 2023-05-06 No Data Available No Data Availa [...] No Data Carli ilable No Data Available [id number] 2023-06-16 No Data Available No Data Available Medication List Documented (1159F) 1159F 2023-06-16 No Data Available No Data Carli ilable Pain Assessment - Pain Documented on a Pain Scale (1125F) 1125F 2023-06-16 No Data Available No Data Carli ilable BMI obtained (3008F) 3008F 2023-06-16 No Data Availab le No Data Available No Data Available [id number] 2023-07-08 No Data Available No Data Available Medication List Documented (1159F) 1159F 2023-07-08 No Data Available No Data Carli ilable Estab. patient 30-39min; chronic exacerbation, 2 stable chronic or 1 acute illness add add modifier 95 for video, (do not use for phone, instead use 45987-49) [id number] 2023-07-15 No Data Available No Data Availa [...] No Data Carli ilable No Data Available [id number] 2023-08-14 No Data Available No Data Available Medication List Documented (1159F) 1159F 2023-08-14 No Data Available No Data Carli ilable No Data Available [id number] 2023-09-09 No Data Available No Data Available No Data Available [id number] 2023-09-10 No Data Available No Data Available Medication List Documented (1159F) 1159F 2023-09-10 No Data Available No Data Carli ilable Estab. patient 30-39min; chronic exacerbation, 2 stable chronic or 1 acute illness add add modifier 95 for video, (do not use for phone, instead use 09763-91) [id number] 2023-09-18 No Data Available No Data Availa [...] No Data Avail able No Data Available [id number] 2024-04-21 No Data Available No Data Available [...] le No Data Available No Data Available [id number] 2024-05-03 No Data Available No Data Available Medication List Documented (1159F) 1159F 2024-05-03 No Data Available No Data Carli ilable No Data Available [id number] 2024-08-26 No Data Available No Data Available [...] 95 for video, modifier 93 for phone [id number] 2024-09-22 No Data Available No Data Availa [...] 95 for video, modifier 93 for phone [id number] 2024-10-21 No Data Available No Data Availa [...] Patient Education to avoid future hospitalization: Call [facility] if symptoms of illness develop.History of recent [...] units TID AC meals and FU with concessionist in February,Wears rafaela paduses inhaler Flovent BIDHas [...] units TID AC meals and FU with concessionist in February,Wears rafaela padNeeds chux pads, XL pull-ups, gloves XLuses inhaler Flovent BIDHas CPAP using nightlyContinue lovenox as directedAdvancing home PTencouraged UE activity as toleratedHas not been taking BP medication since surgery 2 months ago on broken footApril 2022 had a bad fall on steps at entrance to home. Fractured L foot, L?knee, L shoulderStill unable to walkUsing wheelchairNow [facility] productsEscitalopramRex think about whether she wants a therapist 2023-06-15 13:39:58 Phone (patient, pare nt, or guardian); 5-10 minutes of medical discussion (no modifier 95)Continue to see PCP. Follow-up with [facility] as needed for any acute or disease education needs that may arise 23/03.November 2022 had a bad fall on steps at entrance to home. Fractured L foot, L?knee, L shoulderStill unable to walkUsing zxgxhnmock95/16/2023er son, can only walk very short distances [...] unable to walkUsing wheelchairNow [facility], can only walk very short distances [...] and we need videocall. Tablet needs a track repair person, will send and schedule videocall for next [...] unable to walkUsing wheelchairNow [facility], can only walk very short distances [...] to PT but after she returns from [place] in .Can start in October. 2023-08-14 12:38:06 [...] unable to walkUsing wheelchairNow [facility]er son, can only walk very short distances [...] and we need videocall. Tablet needs a track repair person, will send and schedule videocall for next [...] 09/10/23.UPDATE 09/10/2023t has not yet gone to filler picker prescription. Feels about the same. Education [...] 09/10/23.UPDATE 09/10/2023t has not yet gone to filler picker prescription. Feels about the same. Education [...] unable to walkUsing wheelchairNow [facility], can only walk very short distances [...] and we need videocall. Tablet needs a track repair person, will send and schedule videocall for next [...] units TID AC meals and FU with concessionist Reports stableWears rafaela padNeeds chux pads, XL pull-ups, gloves XLuses inhaler Flovent BIDHas CPAP using nightlyContinue lovenox as directedAdvancing home PTencouraged UE activity as toleratedHas not been taking BP medication aftersurgery on broken footUPDATE 09/18/2023eports compliance nowApril 2022 had a bad fall on steps at entrance to home. Fractured L lower leg, L shoulderStill unable to walkUsing wheelchairNow [facility]er son, can only walk very short distances [...] and we need videocall. Tablet needs a track repair person, will send and schedule videocall for next week.Having some pain on her left knee, this is not new, Will FU w video.08/14/2023 Has not heard from [facility] but has not been home. Will see if they have called or if it has arrived and will let us know.08/21/2023 ordered in-home eval for alooter09/10/2023Need to do videocall so need to schedule [...] 09/10/23.UPDATE 4Pt has not yet gone to filler picker prescription. Feels about the same. Education [...] individual diagnosis for contingency plan.previously diagnosed 01/20/23 [employer] [facility] Ctrmanage painstable 2024-04-21 09:19:41 Phone (patient, pare nt, or guardian); 5-10 minutes of medical discussion (no modifier 95)Continue to see PCP. Follow-up with [facility] as needed for any acute or disease [...] units TID AC meals and FU with concessionist Reports stableWears rafaela padNeeds chux pads, XL [...] thinking about going to the ER? ResolvedNext [employer] scheduled appt/call: Patient education provided: Y lynn call us if similar situation arises in future. Avoid this plant in the futureHow else can we help? Refill (See DM)Member trained on use of ? [employer]? for urgent needs and provided with [employer] phone # as an alternative method to reach acute team. Note completed by: Bunny Swo NPPls call CB if allergic reaction to [...] units TID AC meals and FU with concessionist Reports stable09/22/24feels well, denies hypo/hyperglycemic episodescontinues to use CGM and insulin pump A1c 6.9 05/24/24uses inhaler Flovent BIDuses nebulizer 09/22/24denies SOBHas CPAP using nightlyCOPD CONTINGENCY PLANLast updated: 09/22/2024[facility] the [facility]: [...] incontinence supplies ordered 2 months ago by [facility], but has not received yet. [...]
--- OUTSIDE RECORDS SUMMARY | 2024-11-09 07:55 | XMS_ITS | Encounter Summary ---
Author Organization [employer] Address [address] [place] [address] Care Team Providers Care Fabric Worker Fitter Name Role Phone Radha Bran MD Primary Care Provider + Reason for Visit * Reason Onset Date Comments Durable Medical Equipment 10/08/2023 Encounter Details Date Type Department Care Team ([facility] st Contact Info) Description 10/08/2023 Telephone [facility] [address] [place] [address] Radha Bran MD [address] [place] [address] Durable Medical Equipment Social History Tobacco Use [...] if any questions contact Bunny Sow at [phone]. documented in this encounter Plan of Treatment Upcoming Encounters Date Type Department Care Team (Late st Contact Info) Description 12/15/2024 10:30 AM EDT Office Visit [facility] [address] [place] [address] Radha Bran MD [address] [place] [address] documented as of this encounter Visit Diagnoses Not on filedocumented in this encounter Care Teams Fabric Worker Fitter Relationship Specialty Start Date End Date Radha Bran MD [address] [place] [id number] PCP - General Family Medicine 10/16/20 documented as of this encounter
--- OUTSIDE RECORDS SUMMARY | 2024-11-09 07:55 | XMS_ITS | Encounter Summary ---
Author Organization [employer] Address [address] [place] [address] 7t [place] [address] Care Team Providers Care Dinker Name Role Phone Radha Bran MD Primary Care Provider + Reason for Referral * Consultation (Routine) - Authorized Specialty Diagnoses / Procedures Referred By Contac t Referred To Contact Cardiology Diagnoses Palpitation SOB (shortness of breath) on exertion Malia Franklin MD [address] [place] [address] Phone: tel: fax: [facility] Referral ID Status Reason Start Date Expiration Date Visits Requested Visits Authorized [id number] Authorized Specialty Services Required 11/03/2024 11/03/2025 1 1 Encounter Details Date Type Department Care Team (Late st Contact Info) Description 11/03/2024 2:45 PM EST Office Visit [facility] MEDICINE [address] [place], [place] [phone] Malia Franklin MD [address] [place], [place] [phone] Palpitation (Primary Dx); SOB (shortness of breath) [...] AM EDT documented as of this encounter Progress Notes * Malia Hall MD - 11/03/2024 2:45 PM EST SUBJECTIVE: Halley Ramon is a 74 y.o. year old female who presents for fatigue . Acute Concerns: Patient reports 2 months of extreme fatigue, she has being a lot in bed without energy, patient also complains of shortness of breath with exertion and palpitations Social History Social History Narrative Lives with her on a duplex apartment, sleeps on the first floor, has a commode. 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 (CMS/HCC) Essential hypertension Gastroesophageal reflux disease without esophagitis Hip pain Hyperlipidemia Increased frequency of urination Lichen sclerosus et atrophicus Loss of hair Mild persistent asthma without complication Obstructive sleep apnea syndrome Panic attack Pruritus of vagina Raised intraocular pressure Recurrent falls Seronegative rheumatoid arthritis (CMS/HCC) Subcutaneous rheumatoid nodule of both elbows (CMS/HCC) Vitamin D deficiency 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 associated with type 2 diabetes mellitus (CMS/HCC) Right upper quadrant abdominal pain 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, without long-term current use of insulin (CMS/HCC) COVID-19 Cough in adult Lesion of right belkofski kidney Closed 2-part nondisplaced fracture of surgical neck of left humerus with routine healing Open displaced comminuted fracture of shaft of left tibia Iron deficiency anemia Drug-induced constipation WESTLEY (generalized anxiety disorder) Restless legs Osteoarthritis of left knee Health care maintenance Weakness Osteopenia of lumbar spine Screening mammogram for breast cancer Palpitation Acquired renal cyst of left kidney Calculus of gallbladder without cholecystitis without obstruction Tinea corporis Memory deficit SOB (shortness of breath) on exertion Chronic fatigue No family history on file. Review of Systems Constitutional: Positive for activity change and fatigue. Negative for appetite change, chills, diaphoresis, fever and unexpected weight change. HENT: Negative. Respiratory: Positive for shortness of breath. Negative for apnea, cough, choking, chest tightness,wheezing and stridor. Cardiovascular: Positive for palpitations. Negative for chest pain and leg swelling. Musculoskeletal: Positive for arthralgias and myalgias. OBJECTIVE: There were no vitals filed for this visit. Physical Exam Follow Up: No follow-ups on file. Current Outpatient Medications on File Prior to Visit Medication Sig Dispense Refill acetaminophen (Tylenol) 500 MG tablet Take 1-2 tablets (500-1,000 mg) by mouth every 6 (six) hours if needed for mild pain. 120 tablet 0 albuterol 108 (90 Base) MCG/ACT inhaler albuterol sulfate HFA 90 mcg/actuation aerosol inhaler INHALE 2 PUFFS BY MOUTH FOUR TIMES DAILY NEEDED aspirin 81 MG EC tablet Take 1 tablet by mouth in the morning. baclofen (Lioresal) 20 MG tablet Take 1 tablet by mouth every 8 (eight) hours. BD Pen Needle Nora 2nd Gen 32G X 4 MM misc Use as instructed 100 each 0 betamethasone valerate (Valisone) 0.1 % cream Apply topically in the morning. Blood Glucose Monitoring Suppl (FreeStyle Lite) w/Device kit FreeStyle Lite Meter kit USE DIRECTED TO TEST BLOOD SUGAR THREE TIMES DAILY Blood Pressure Monitoring (Blood Pressure Cuff) [facility] blood pressure test kit- large cuff USE DIRECTED CeQur Simplicity 2U device APPLY PATCH DIRECTED cetirizine (ZyrTEC) 10 MG tablet Take 1 tablet by mouth in the morning. Diclofenac Sodium 1 % gel Docusate Sodium (DSS) 100 MG capsule Take 1 capsule by mouth every 12 (twelve) hours. escitalopram (Lexapro) 20 MG tablet TAKE 1 TABLET(20 MG) BY MOUTH EVERY DAY 30 tablet 3 fluconazole (Diflucan) 150 MG tablet fluconazole 150 mg tablet TAKE 1 TABLET BY MOUTH 1 TIME. REPEAT AFTER 72 HOURS fluticasone (Flonase Allergy Relief) 50 MCG/ACT nasal spray Administer 2 sprays into each nostril in the morning. 16 g 3 fluticasone (Flovent HFA) 220 MCG/ACT inhaler Inhale 2 puffs every 12 (twelve) hours. folic acid (Folvite) 1 MG tablet Take 1 tablet by mouth in the morning. FreeStyle lancets FreeStyle Lancets 28 gauge USE DIRECTED THREE TIMES DAILY gabapentin (Neurontin) 100 MG capsule TAKE 1 CAPSULE(100 MG) BY MOUTH EVERY 12 HOURS 60 capsule 3 glucose blood (FREESTYLE LITE) test strip 3 each every 8 (eight) hours. glucose blood (FREESTYLE TEST STRIPS) test strip FreeStyle Lite Strips USE TO CHECK BLOOD GLUCOSE THREE TIMES DAILY DIRECTED glucose blood (OneTouch Ultra) test strip 2 each every 12 (twelve) hours. HumaLOG 100 UNIT/ML injection Inject 8 units TID hydrOXYzine pamoate (Vistaril) 25 MG capsule Take 1 capsule (25 mg) by mouth every 6 (six) hours ifneeded for anxiety. 45 capsule 1 Insulin Glargine Solostar 100 UNIT/ML solution pen-injector Inject 30 Units under the skin in the morning. Inject 24u/hs (endocrinology refills) 10 mL 3 irbesartan (Avapro) 75 MG tablet Take 1 tablet (75 mg) by mouth in the morning. 30 tablet 11 Iron, Ferrous Sulfate, 325 (65 Fe) MG tablet Take 1 tablet by mouth in the morning. 90 tablet 3 mirabegron ER (Myrbetriq) 50 MG 24 hr tablet Take 1 tablet by mouth in the morning. multivitamin (Theragran) tablet Take 1 tablet by mouth in the morning. omeprazole (PriLOSEC) [address] capsule Take 1 capsule (40 mg) by mouth in the morning. Before a meal 30 capsule 11 Polyvinyl Alcohol-Povidone 5-6 MG/ML solution Administer 2 drops into affected eye(s) 4 times daily. 15 mL 3 terconazole (Terazol 7) 0.4 % vaginal cream terconazole 0.4 % vaginal cream INSERT 1 APPLICATORFUL VAGINALLY EVERYDAY FOR 7 DAYS AT BEDTIME UltiCare Alcohol Swabs 70 % pads DIRECTED TWICE DAILY Vaginal Lubricant (Replens) gel use as directed No current facility-administered medications on file prior to visit. Problem List Items Addressed This Visit Palpitation - Primary Relevant Orders Referral to Cardiology SOB (shortness of breath) on exertion Relevant Orders Referral to Cardiology Chronic fatigue I advised healthy diet and exercise Blood work order patient will be contacted with results Relevant Orders CBC auto differential Comprehensive Metabolic Panel HIV-1/2 Antigen and Antibodies, Fourth Generation, with Reflexes Hepatitis C Antibody with Reflex to HCV, RNA, Quantitative, Real-Time PCR Lipid Panel, Standard Vitamin D, 25-Hydroxy, Total, Immunoassay TSH with Reflex to Free T4 C-reactive Protein Cyclic Citrullinated Peptide (CCP) Antibody (IgG) Sed Rate by Modified Westergren RADHA Screen,IFA, with Reflex to Titer and Pattern Vitamin B12/Folate, Serum Panel Iron And Total Iron Binding Capacity Ferritin documented in this encounter Miscellaneous Notes * Assessment & Plan Note - Malia Hall MD - 11/03/2024 4:18 PM EST Associated Problem(s): Chronic fatigue I advised healthy diet and exercise Blood work order patient will be contacted with results documented in this encounter Plan of Treatment Upcoming Encounters Date Type Department Care Team (Late st Contact Info) Description 12/15/2024 10:30 AM EDT Office Visit [facility] MEDICINE [address] [place] [phone] Radha Bran MD [address] [place], [place] [phone] Scheduled Orders Name Type Priority Associated Diagnoses [...] Date End Date Radha Bran MD [address] [place] [address] PCP - General Family Medicine 10/16/20 documented as of this encounter
--- OUTSIDE RECORDS SUMMARY | 2024-11-09 07:55 | XMS_ITS | Encounter Summary ---
Author Organization [employer] Address [address] [place] [address] 7 [place] [address] Care Team Providers Care Spot Washer Name Role Phone Radha Bran MD Primary Care Provider + Reason for Visit * Reason Onset Date Comments Letter for School/Work 10/16/2022 Encounter Details Date Type Department Care Team ([facility] st Contact Info) Description 10/16/2022 Telephone [facility] MEDICINE [address] [place] [address] Radha Bran MD [address] [place] [address] Letter for School/Work Social History Tobacco Use [...] 10:30 AM EDT Office Visit [facility] MEDICINE [address] [place], [place] [phone] Radha Bran MD [address] [place] [address] documented as of this encounter Visit Diagnoses Not on filedocumented in this encounter Care Teams Spot Washer Relationship Specialty Start Date End Date Radha Bran MD [address] [place], [place] [phone] PCP - General Family Medicine 10/16/20 documented as of this encounter
[2024-11-09 08:13] LABS: MANUAL DIFF FLAG NO
[2024-11-09 08:30] LABS: Basophils Percent Auto 0.3 % (0-2); Eosinophils Absolute Auto 0.1 X10*3/uL (0.0-0.4); Eosinophils Percent Auto 1.8 % (0-4); Hematocrit 39.8 % (37.0-47.0); Hemoglobin 13.4 g/dl (12.0-16.0); Imm Gran Abs Auto 0.03 X10*3/uL (0.00-0.03); Imm Gran Pct Auto 0.5 % (0.0-0.4); Lymphocytes Absolute Auto 2.2 X10*3/uL (1.2-4.9); Lymphocytes Percent Auto 32.6 % (20-40); Mean Corpuscular HGB Conc 33.7 g/dl (31.0-35.0); Mean Corpuscular Hemoglobin 28.5 pg (27.0-33.0); Mean Corpuscular Volume 84.5 fL (80.0-98.0); Mean Platelet Volume 11.4 fL (9.4-12.3); Monocytes Absolute Auto 0.5 X10*3/uL (0.1-1.2); Monocytes Percent Auto 6.9 % (2-11); Neutrophils Absolute Auto 3.9 x10*3/uL (2.0-8.3); Neutrophils Percent Auto 57.9 % (45-73); Platelet Count 199 X10*3/uL (160-400); Red Blood Count 4.71 X10*6/uL (4.20-5.50); Red Cell Distribution Width 13.4 % (11.0-16.0); White Blood Count 6.7 X10*3/uL (4.8-10.8)
[2024-11-09 08:54] LABS: Blood Urea Nitrogen 18 mg/dL (9-16)
[2024-11-09 09:02] LABS: Alanine Aminotransferase 30 U/L (0-31); Albumin Level 3.5 g/dL (3.5-5.0); Alkaline Phosphatase 62 U/L (39-117); Anion Gap 10 (12-20); Aspartate Amino Transferase 23 U/L (5-31); Bilirubin Total 0.3 mg/dL (0.0-1.0); Blood Urea Nitrogen 17 mg/dL (9-16); C Reactive Protein 0.85 mg/dL (< or = 0.50); Calcium 8.9 mg/dL (8.4-10.2); Carbon Dioxide 25 mmol/L (22-29); Chloride 111 mmol/L (96-108); Cholesterol 126 mg/dL (<200); Estimated Glomerular Filt Rate > 60; Glucose Random 134 mg/dL (60-115); HDL Cholesterol 45 mg/dL (>40); Iron 51 mcg/dL (30-160); LDL Cholesterol Calculated 62 mg/dL (<100); Percent Iron Saturation 19 % (15-50); Potassium 3.8 mmol/L (3.3-5.1); Sodium 142 mmol/L (135-145); Total Iron Binding Capacity 267 mcg/dL (228-428); Total Protein 7.4 g/dL (6.5-8.0); Triglycerides 98 mg/dL (<150); Unsaturated Iron Binding 216 ug/dL
[2024-11-09 09:13] LABS: HIV AB/AG Nonreactive (Nonreactive); HIV Num 1 0.08 S/CO (0.00-0.99); ~Hepatitis C Antibody Nonreactive (Nonreactive)
[2024-11-09 09:18] LABS: Erythrocyte Sedimentation Rate 27 MM/HR (0-20)
[2024-11-09 09:19] LABS: Ferritin 36 ng/mL (10-250); TSH reflex Free T4 3.69 uIU/mL (0.32-4.0); Vitamin D 25-OH Total 19.7 ng/mL (>30)
[2024-11-09 09:30] LABS: Vitamin B12 525 pg/mL (200-900)
[2024-11-09 09:51] LABS: Creatinine Urine 265.18 mg/dL; Protein/Creatinine Ratio, Ur 0.23 (<0.2); Total Protein Urine Random 61 mg/dL (<12)
[2024-11-11 12:59] LABS: Cyclic Citrullinated Peptide <16 UNITS
[2024-11-15 15:48] LABS: Anti Nuclear Antibody Pattern Nuclear, Speckled; Anti Nuclear Antibody Screen POSITIVE (NEGATIVE); Anti Nuclear Antibody Titer 1:40 titer
== END 2024-11-09 07:51 | disposition home or self-care (01) ==
LOC: HO.LAB 07:50
PROVIDERS: Absent Provider Internal Medicine Nephrology; PCP Internal Medicine; Visit Provider Internal Medicine
DX: R53.82 Chronic fatigue, unspecified (principal); E11.21 Type 2 diabetes mellitus with diabetic nephropathy
CPT/HCPCS: 36415; 80053; 80061; 82306; 82570; 82607; 82728; 82746; 83540; 84156; 84443; 84520; 85025; 85652; 86038; 86039; 86140; 86200; 86803; 87389

== ENCOUNTER 2024-11-11 13:09 | Outpatient (AMB) | payer OTHER, SELFPAY ==
--- NOTE | 2024-11-11 13:29 | HO.NEPHOV_ITS ---
Vital Signs 11/11/24 13:33 Height 5 ft 2 in Weight 240 lb 2 oz BMI 43.9 BP 124/70 Blood Pressure Location Lt brachial Position Sitting Pulse 77 Pulse Source Pulse Oximeter Pulse Oximetry (%) 94 Oxygen Delivery Method Room Air Intake Visit Reasons: 6 mon follow up-Conf Senior Environmental Practice Leader Required: Yes Senior Environmental Practice Leader Language: Director Of Learning Services: Senior Environmental Practice Leader Present Senior Environmental Practice Leader Name: Hang [id number] Accompanied by: Spouse Allergies seasonal Allergy (Intermediate, Uncoded 11/03/24 13:17) cough HPI Comments Details: Halley was seen in follow up for hypertension on a backdrop of history of proteinuria. She has diabetes mellitus. She denies retinopathy. She is taking angiotensin receptor max. She avoids excessive nonsteroidal anti- inflammatories. Her renal functions are normal. She does not have any chest pain, shortness of breath, paroxysmal nocturnal dyspnea, orthopnea, pedal edema, orthostatic symptoms, epistaxis, photosensitivity, skin rashes, orthostatic symptoms, sensorineural deafness, microscopic hematuria, new bone or back pain. She claims to be compliant with her medications and is closely followed up by her PCP. There were no new active complaints at the time of this office visit. [facility] Medical History (Updated 11/02/24 @ 13:25 by Breanna Walters NP) Type 2 diabetes mellitus Panic attack Anxiety Obesity due to excess calories Asthma REY (obstructive sleep apnea) Morbid obesity Vitamin D deficiency Obesity Dyslipidemia Hypertension Diabetic polyneuropathy associated with type 2 diabetes mellitus Diabetes type 2, uncontrolled Surgical History Abdominal pain History of carpal tunnel release S/P trigger finger release H/O foot surgery History of dilatation and curettage History of sleeve gastrectomy History of esophagogastroduodenoscopy (EGD) History of eyelid surgery Hx of tubal ligation Hx of colonoscopy Family History Father Type II diabetes mellitus Obesity Mother HTN (hypertension) Brother Cancer Social History Household Members: Spouse Housing: Apartment Do you presently have visiting nurse or other home services: Yes Alcohol intake: never Patient Tobacco Use Status: Former Tobacco user Tobacco use type: Cigarette e-Cigarette/Vaping Use: Never Used service: No Current occupational status: unemployed Current occupation: rt handed Review of Systems Const All systems reviewed & are unremarkable except as noted in HPI and below Physical Exam Const General: comfortable and no acute distress Orientation/consciousness: patient oriented x3 HEENT Head: Yes normocephalic Mouth: Normal oral and palatal mucosa present Eyes EOM: EOMs intact bilaterally Neck Neck: Yes supple Resp Auscultation: clear to auscultation bilaterally Cardio Jugular venous distension: no JVD Rate: regular rate GI Palpation (GI): Soft to palpation Auscultation: normal bowel sounds Skin General skin exam: no rashes or lesions noted Neuro General: patient oriented x3 and moves all extremities Extrem General: Yes no pedal edema Results Reviewed Nephrology Results: Hgb 13.4 g/dl (12.0-16.0) 11/09/24 WBC 6.7 X10*3/uL (4.8-10.8) 11/09/24 Plt Count 199 X10*3/uL (160-400) 11/09/24 Sodium 142 mmol/L (135-145) 11/09/24 Potassium 3.8 mmol/L (3.3-5.1) 11/09/24 Chloride 111 mmol/L (96-108) H 11/09/24 Carbon Dioxide 25 mmol/L (22-29) 11/09/24 BUN 17 mg/dL (9-16) H 11/09/24 Creatinine 0.62 mg/dL (0.5-1.4) 11/09/24 Calcium 8.9 mg/dL (8.4-10.2) 11/09/24 Urine Creatinine 265.18 mg/dL 11/09/24 Protein/Creatinin Ratio 0.23 (<0.2) H 11/09/24 Assessment & Plan Assessment & Plan (1) Angiomyolipoma of kidney: Code(s): D17.71 - Benign lipomatous neoplasm of kidney Category: Medical (2) Diabetic nephropathy: Code(s): E11.21 - Type 2 diabetes mellitus with diabetic nephropathy Category: Medical Qualifiers: Diabetes mellitus type: type 2 Qualified Code(s): E11.21 - Type 2 diabetes mellitus with diabetic nephropathy (3) Hypertension: Code(s): I10 - Essential (primary) hypertension Category: Medical Qualifiers: Hypertension type: essential hypertension Qualified Code(s): I10 - Essential (primary) hypertension (4) Vitamin D deficiency: Code(s): E55.9 - Vitamin D deficiency, unspecified Category: Medical Plan She has 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 Her protein is undetectable on Avapro 150 mg daily which should help her with hypertension, proteinuria and provide her renal protection being a diabetic. Her renal functions are normal. His serum potassium is at baseline. She has angiomyolipoma of the kidney for which I plan to do a surveillance ultrasound with time and will refer to intervention Radiology based on evolving data for embolization. Her blood pressure needs to be kept at goal. She is on statins. Given she is type 2 diabetic, she is a great candidate for SGLT2 inhibitor. She should avoid nonsteroidal anti-inflammatories and maintain good hydration along with keeping her blood sugar at goal. She is on Vitamin D replacement. All these have been discussed in detail. Answered all questions. Follow-up appointment given. Orders: Orders Protein Creatinine Ratio, Ur 6 Months E11.21 - Type 2 diabetes mellitus with diabetic nephropathy Electrolytes 6 Months E11.21 - Type 2 diabetes mellitus with diabetic nephropathy Creatinine 6 Months E11.21 - Type 2 diabetes mellitus with diabetic nephropathy Blood Urea Nitrogen 6 Months E11.21 - Type 2 diabetes mellitus with diabetic nephropathy Coding Level of Care Code Est Pt Level 4 (69329) Diagnoses Angiomyolipoma of kidney D17.71 Diabetic nephropathy associated with type 2 diabetes mellitus E11.21 Diabetes mellitus type: type 2 Essential hypertension I10 Hypertension type: essential hypertension Vitamin D deficiency E55.9
[2024-11-11 13:33] VITALS: BP 124/70; PULSE 77; O2SAT 94; BMI 43.9
--- OUTSIDE RECORDS SUMMARY | 2024-11-11 14:41 | XMS_ITS | Encounter Summary ---
Author Organization [employer] [facility] Address [address] [place] [address] 7 [place] [address] Care Team Providers Care Airport Driver Name Role Phone Radha Bran MD Primary Care Provider + Encounter Details Date Type Department Care Team (Late st Contact Info) Description 07/28/2022 Abstract [facility] MEDICINE [address] [place] [address] ProviderBritany MD Social History Tobacco Use Types [...] Description 12/15/2024 10:30 AM EDT Office Visit [facility] MEDICINE [address] [place] [address] Radha Bran MD [address] [place] [address] documented as of this encounter Visit Diagnoses Not on filedocumented in this encounter Care Teams Airport Driver Relationship Specialty Start Date End Date Radha Bran MD [address] [place] [id number] PCP - General Family Medicine 10/16/20 documented as of this encounter
--- OUTSIDE RECORDS SUMMARY | 2024-11-11 14:41 | XMS_ITS | Encounter Summary ---
Author Organization [employer] Address [address] [place] [address] Care Team Providers Care Video Games Mechanic Name Role Phone Radha Bran MD [...] 10:30 AM EDT Office Visit [facility] MEDICINE [address] [place] [address] Radha Bran MD [address] [place] [address] documented as of this encounter Visit Diagnoses Not on filedocumented in this encounter Additional Health Concerns Assessment Noted Time PHQ-9 Depression Total Score: 13 024 10:37 AM EST documented as of this encounter Care Teams Video Games Mechanic Relationship Specialty Start Date End Date Radha Bran MD [address] [place] [phone] PCP - General Family Medicine 10/16/20 documented as of this encounter
--- OUTSIDE RECORDS SUMMARY | 2024-11-11 14:41 | XMS_ITS | Encounter Summary ---
Author Organization [employer] Address [address] [facility] 7t [place] [address] Care Team Providers Care Block Engraver Name Role Phone Rahda Bran MD Primary Care Provider + Encounter Details Date Type Department Care Team ([facility] st Contact Info) Description 08/25/2024 Orders Only [facility] MEDICINE [address] [place] [address] Radha Bran MD [address] [place] [address] Social History Tobacco Use Types Packs/Day Years [...] Description 12/15/2024 10:30 AM EDT Office Visit [facility] MEDICINE [address] [place] [phone] Radha Bran MD [address] [place] [address] documented as of this encounter Visit Diagnoses Not on filedocumented in this encounter Additional Health Concerns Assessment Noted Time PHQ-9 Depression Total Score: 13 024 10:37 AM EST documented as of this encounter Care Teams Block Engraver Relationship Specialty Start Date End Date Radha Bran MD [address] [place] [phone] PCP - General Family Medicine 10/16/20 documented as of this encounter
--- OUTSIDE RECORDS SUMMARY | 2024-11-11 14:41 | XMS_ITS | Encounter Summary ---
Author Organization [employer] Address [address] [place] [address] 7 [place] [address] Care Team Providers Care Production Corrugator Name Role Phone Radha Bran MD Primary Care Provider + Encounter Details Date Type Department Care Team ([facility] Contact Info) Description 02/09/2023 [facility] Health Information Management [address] [place] [address] Radha Bran MD [address] [place] [address] Social History Tobacco Use Types Packs/Day Years [...] Upcoming Encounters Date Type Department Care Team ([facility] Contact Info) Description 12/15/2024 10:30 AM EDT Office Visit [facility] MEDICINE [address] [place] [address] Radha Bran MD [address] [place] [address] documented as of this encounter Visit Diagnoses Not on filedocumented in this encounter Care Teams Production Corrugator Relationship Specialty Start Date End Date Radha Bran MD [address] [place] [address] PCP - General Family Medicine 10/16/20 documented as of this encounter
--- OUTSIDE RECORDS SUMMARY | 2024-11-11 14:41 | XMS_ITS | Encounter Summary ---
Author Organization [employer] Address [address] [place] [address] 7t [place] [address] Care Team Providers Care Outcomes Manager Name Role Phone Radha Bran MD Primary Care Provider + Reason for Referral * Consultation (Routine) - Authorized Specialty Diagnoses / Procedures Referred By Contac t Referred To Contact Cardiology Diagnoses Palpitation SOB (shortness of breath) on exertion Malia Franklin MD [address] [place] [address] Phone: tel: fax: [facility] Referral ID Status Reason Start Date Expiration Date Visits Requested Visits Authorized [id number] Authorized Specialty Services Required 11/03/2024 11/03/2025 1 1 Encounter Details Date Type Department Care Team (Late st Contact Info) Description 11/03/2024 2:45 PM EST Office Visit [facility] [address] [place], [place] [phone] Malia Franklin MD [address] [place], [place] [phone] Palpitation (Primary Dx); SOB (shortness of breath) [...] the first floor, has a commode. Has PET WALKER Patient Active Problem List Diagnosis Actinic keratosis [...] COVID-19 Cough in adult Lesion of right [place] [facility] Closed 2-part nondisplaced fracture of surgical [...] DAILY Blood Pressure Monitoring (Blood Pressure Cuff) [facility] [place] blood pressure test kit- large cuff USE [...] Description 12/15/2024 10:30 AM EDT Office Visit [facility] [address] [place] [phone] Radha Bran MD [address] [place] [address] Scheduled Orders Name Type Priority Associated Diagnoses Orde r Schedule RADHA Screen,IFA, with Reflex to Titer and Pattern Lab Routine Chronic fatigue Expected: 11/03/2024 (Approximate), Expires: 11/03/2025 Scheduled Referrals Name Type Priority Associated Diagnoses Order Schedule Referral to Cardiology Outpatient Referral Routine Palpitation SOB (shortness of breath) on exertion Expected: 11/03/2024 (Approximate), Expires: 11/03/2025 documented as of this encounter Procedures Procedure Name Priority Date/Time Associated Diagnosis Comments VITAMIN D,25-OH,TOTAL,IA Routine 11/09/2024 8:00 AM EDT Chronic fatigue VITAMIN B12/FOLATE, SERUM PANEL Routine 11/09/2024 8:00 AM EDT Chronic fatigue TSH W/REFLEX TO FT4 Routine 11/09/2024 8 :00 AM EDT Chronic fatigue CBC WITH AUTO DIFFERENTIAL Routine 11/09/2024 8:00 AM EDT Chronic fatigue HEPATITIS C AB W/REFL TO HCV RNA, QN, PCR Routine 11/09/2024 8:00 AM EDT Chronic fatigue CYCLIC CITRULLINATED PEPTIDE (CCP) AB (IGG) Routine 11/09/2024 8:00 AM EDT Chronic fatigue IRON AND TOTAL IRON BINDING CAPACITY Routine 11/09/2024 8:00 AM EDT Chronic fatigue HIV 1/2 ANTIGEN/ANTIBODY, FOURTH GENERATION W/RFL Routine 11/09/2024 8:00 AM EDT Chronic fatigue SED RATE BY MODIFIED WESTERGREN Routine 11/09/2024 8:00 AM EDT Chronic fatigue C-REACTIVE PROTEIN Routine 11/09/2024 8: 00 AM EDT Chronic fatigue FERRITIN Routine 11/09/2024 8:00 AM EDT Chronic fatigue LIPID PANEL, STANDARD Routine 11/09/2024 8:00 AM EDT Chronic fatigue COMPREHENSIVE METABOLIC PANEL Routine 11/09/2024 8:00 AM EDT Chronic fatigue documented in this encounter Results * Ferritin (11/09/2024 8:00 AM EDT) Ferritin 36 10 - 250 ng/mL [facility] Blood Venous blood specimen / Unknown 11/09/2024 8:00 AM EDT 11/09/2024 8:11 AM EDT us Malia Hall MD LAB BLOOD ORDERABLES Final Result Performing Organization Address City/[facility]/ZIP Co de Phone Number [facility] [address] [place] [phone] * Iron And Total Iron Binding Capacity (11/09/2024 8:00 AM EDT) Pathologist [facility] Iron 51 30 - 160 mcg/dL [facility] Total Iron Binding Capacity 267 228 - 428 mcg/dL [facility] Percent Iron Saturation 19 15 - 50 % [facility] Unsaturated Iron Binding 216 ug/dL [facility] Blood Venous blood specimen / Unknown 11/09/2024 8:00 AM EDT 11/09/2024 8:11 AM EDT us Malia Hall MD LAB BLOOD ORDERABLES Final Result Performing Organization Address City/[facility]/ZIP Co de Phone Number [facility] [address] [place] [phone] * Vitamin B12/Folate, Serum Panel (11/09/2024 8:00 AM EDT) Pathologist [facility] Vitamin B12 525 200 - 900 pg/mL [facility] Comment:NORMAL 200-900 PG/M L INDETERMINATE 160-199 PG/ML DEFICIENT < 160 PG/ML Folate 9.0 > or = 4.0 ng/mL [facility] Comment:Reference Values:> o r = 4.0 ng/mL< 4.0 ng/mL suggests folate deficiency Methotrexate, aminopterin and folinic acid(leucovorin) are chemotherapeutic agents whose molecularstructures are similar to folate; therefore, the Architectfolate assay cannot be used for patients using these drugs. Blood Venous blood specimen / Unknown 11/09/2024 8:00 AM EDT 11/09/2024 8:11 AM EDT us Malia Hall MD LAB BLOOD ORDERABLES Final Result Performing Organization Address [facility] Co de Phone Number [facility] [address] [place] [address] [phone] * (ABNORMAL) Sed Rate by Modified Westergren (11/09/2024 8:00 AM EDT) Pathologist [facility] Erythrocyte Sedimentation Rate 27(H) 0 - 20 MM/HR [facility] Comment:Patients with polycy themia and many hemoglobin abnormalitiesmay have depressed sed rates whereas patients with anemiamay have elevated sed rates. Blood Venous blood specimen / Unknown 11/09/2024 8:00 AM EDT 11/09/2024 8:11 AM EDT us Malia Hall MD LAB BLOOD ORDERABLES Final Result Performing Organization Address [facility] Co de Phone Number [facility] [address] [place] [address] [phone] * Cyclic Citrullinated Peptide (CCP) Antibody (IgG) (11/09/2024 8:00 AM EDT) Pathologist [facility] Cyclic Citrullinated Peptide <16 UNITS [facility] Comment:Reference RangeNegat maggie: <20Weak Positive: 20-39Moderate Positive: 40-59Strong Positive: >59THIS TEST WAS PERFORMED AT:[facility] [address] [id number] WEINSTEIN MD Blood Venous blood specimen / Unknown 11/09/2024 8:00 AM EDT 11/09/2024 8:11 AM EDT us Malia Hall MD LAB BLOOD ORDERABLES Final Result Performing Organization Address [facility]/ZIP Co de Phone Number [facility] [address] [place] [phone] * (ABNORMAL) C-reactive Protein (11/09/2024 8:00 AM EDT) C Reactive Protein 0.85(H) < or = 0.50 mg/dL [facility] Blood Venous blood specimen / Unknown 11/09/2024 8:00 AM EDT 11/09/2024 8:11 AM EDT us Malia Hall MD LAB BLOOD ORDERABLES Final Result Performing Organization Address [facility] Co de Phone Number [facility] [address] [place] [phone] * TSH with Reflex to Free T4 (11/09/2024 8:00 AM EDT) TSH reflex Free T4 3.69 0.32 - 4.0 uIU/mL [facility] Blood Venous blood specimen / Unknown 11/09/2024 8:00 AM EDT 11/09/2024 8:11 AM EDT us Malia Hall MD LAB BLOOD ORDERABLES Final Result Performing Organization Address [facility] Co de Phone Number [facility] [address] [place] [phone] * (ABNORMAL) Vitamin D, 25-Hydroxy, Total, Immunoassay (11/09/2024 8:00 AM EDT) Vitamin D 25-OH Total 19.7(L) >30 ng/mL [facility] Comment: Health Based Reference Values*< 20 ??ng/mL ??Mnrxhaaoc68-59 ng/mL ??Insufficient> 30 ??ng/mL ??Sufficient*Taras SUAZO. N Engl J Med. 2007;357:266-280There is no well-established upper level of normal vitamin Dlevels. Some laboratories use 50 ng/mL as an upper limit ofnormal. However, toxicity is patient-dependent and may occurat any level. Careful correlation with the patient'spresentation is necessary and, if there is concern forvitamin D toxicity, treatment should be consideredirrespective of the serum level.Care must be taken in interpreting Vitamin D results fromdifferent laboratories and methodologies. ??Published datademonstrated that results from patients undergoinghemodialysis may show a negative bias when tested withvarious automated 25-OH vitamin D assays when compared toLC- MS/MS.When testing samples from patients whose predominant form ofVitamin D is Vitamin D2, such as patients receiving VitaminD2 supplementation, results that are subtherapeutic shouldbe confirmed with another method such as LC-MS/MS. Blood Venous blood specimen / Unknown 11/09/2024 8:00 AM EDT 11/09/2024 8:11 AM EDT us Malia Hall MD LAB BLOOD ORDERABLES Final Result [facility] [address] [place] [phone] [phone] * Lipid Panel, Standard (11/09/2024 8:00 AM EDT) Triglycerides 98 <150 mg/dL [facility] Comment:Desirable Triglyceri de: less than 150 mg/dLBorderline High Triglyceride 150-199 mg/dLHigh Triglyceride: 200-499 mg/dLVery High Triglyceride: greater than or equal to 5OO mg/dL Cholesterol 126 <200 mg/dL [facility] Comment:Desirable Cholestero l: less than 200 mg/dLBorderline High Cholesterol: 200-239 mg/dLHigh Cholesterol: greater than 239 mg/dL LDL Cholesterol Calculated 62 <100 mg/dL [facility] Comment:Desirable LDL: less than 100 mg/dLNear Optimal/Above Optimal LDL: 110- 129 mg/dLBorderline High LDL: 130-159 mg/dLHigh LDL: 160-189 mg/dLVery High LDL: greater than or equal to 190 mg/dL HDL Cholesterol 45 >40 mg/dL [facility] Comment:Desirable HDL: great er than 40 mg/dL Note: This HDL assay may give artificially low results in patients with liver disease. Blood Venous blood specimen / Unknown 11/09/2024 8:00 AM EDT 11/09/2024 8:11 AM EDT us Malia Hall MD LAB BLOOD ORDERABLES Final Result Performing Organization Address [facility] Co de Phone Number [facility] [address] [place] [phone] * Hepatitis C Antibody with Reflex to HCV, RNA, Quantitative, Real-Time PCR (11/09/2024 8:00 AM EDT) Hepatitis C Antibody Nonreactive Nonreactive [facility] Comment:Antibodies to HCV no t detected; does not exclude early acuteHCV infection. Blood Venous blood specimen / Unknown 11/09/2024 8:00 AM EDT 11/09/2024 8:11 AM EDT us Malia Hall MD LAB BLOOD ORDERABLES Final Result Performing Organization Address [facility] Co de Phone Number [facility] [address] [place] [phone] * HIV-1/2 Antigen and Antibodies, Fourth Generation, with Reflexes (11/09/2024 8:00 AM EDT) HIV AB/AG Nonreactive Nonreactive [facility] Comment:HIV-1 p24 Ag and/or HIV-1/HIV-2 Ab not detected.A test result that is nonreactive does not exclude thepossibility of exposure to or infection with HIV-1 and/orHIV-2. Nonreactive results in this assay for individualswith prior exposure to HIV-1 and/or HIV-2 may be due toantigen and antibody levels that are below the limit ofdetection of this assay.The Yakimbi HIV Ag/Ab Combo assay result andsupplemental assay results should be interpreted inconjunction with the patient's clinical presentation,history and other laboratory results. If the results areinconsistent with clinical evidence, additional testing issuggested to confirm the result. Blood Venous blood specimen / Unknown 11/09/2024 8:00 AM EDT 11/09/2024 8:11 AM EDT us Malia Hall MD LAB BLOOD ORDERABLES Final Result [facility] [address] [place] [phone] * (ABNORMAL) Comprehensive Metabolic Panel (11/09/2024 8:00 AM EDT) Sodium 142 135 - 145 mmol/L [facility] Potassium 3.8 3.3 - 5.1 mmol/L [facility] Chloride 111(H) 96 - 108 mmol/L [facility] Carbon Dioxide 25 22 - 29 mmol/L [facility] Anion Gap 10(L) 12 - 20 [facility] Urea Nitrogen (BUN) 17(H) 9 - 16 mg/dL [facility] Creatinine, Serum 0.62 0.5 - 1.4 mg/dL [facility] Estimated Glomerular Filt Rate >60 [facility] Comment:Chronic Kidney Disea se: Estimated GFR < 60 mL/min/1.93x4Uvocju Kidney Disease: Estimated GFR < 15 mL/min/1.73m2 Glucose 134(H) 60 - 115 mg/dL [facility] Calcium 8.9 8.4 - 10.2 mg/dL [facility] Bilirubin, Total 0.3 0.0 - 1.0 mg/dL [facility] Aspartate Amino Transferase 23 5 - 31 U/L [facility] Alanine Aminotransferase 30 0 - 31 U/L [facility] Total Protein 7.4 6.5 - 8.0 g/dL [facility] Albumin Level 3.5 3.5 - 5.0 g/dL [facility] Alkaline Phosphatase 62 39 - 117 U/L [facility] Blood Venous blood specimen / Unknown 11/09/2024 8:00 AM EDT 11/09/2024 8:11 AM EDT Malia Hall MD LAB BLOOD ORDERABLES Final Result [facility] [address] [place] [phone] * (ABNORMAL) CBC auto differential (11/09/2024 8:00 AM EDT) White Blood Count 6.7 4.8 - 10.8 X10*3/uL [facility] Red Blood Count 4.71 4.20 - 5.50 X10*6/uL [facility] Hemoglobin 13.4 12.0 - 16.0 g/dl [facility] Hematocrit 39.8 37.0 - 47.0 % [facility] Mean Corpuscular Volume 84.5 80.0 - 98.0 fL [facility] Mean Corpuscular Hemoglobin 28.5 27.0 - 33.0 pg [facility] Mean Corpuscular HGB Conc 33.7 31.0 - 35.0 g/dl [facility] Red Cell Distribution Width 13.4 11.0 - 16.0 % [facility] Platelet Count 199 160 - 400 X10*3/uL [facility] Mean Platelet Volume 11.4 9.4 - 12.3 fL [facility] Neutrophils Percent Auto 57.9 45 - 73 % [facility] Imm Gran Pct Auto 0.5(H) 0.0 - 0.4 % [facility] Lymphocytes Percent Auto 32.6 20 - 40 % [facility] Monocytes Percent Auto 6.9 2 - 11 % [facility] Eosinophils Percent Auto 1.8 0 - 4 % [facility] Basophils Percent Auto 0.3 0 - 2 % [facility] NRBC Pct Auto 0.0 0.0 - 0.2 /100WBC [facility] Neutrophils Absolute Auto 3.9 2.0 - 8.3 x10*3/uL [facility] Imm Gran Abs Auto 0.03 0.00 - 0.03 X10*3/uL [facility] Lymphocytes Absolute Auto 2.2 1.2 - 4.9 X10*3/uL [facility] Monocytes Absolute Auto 0.5 0.1 - 1.2 X10*3/uL [facility] Eosinophils Absolute Auto 0.1 0.0 - 0.4 X10*3/uL [facility] Basophils Absolute Auto 0.0 0.0 - 0.2 X10*3/uL [facility] NRBC Abs Auto 0.000 0.0 - 0.012 X10*3/uL [facility] Blood Venous blood specimen / Unknown 11/09/2024 8:00 AM EDT 11/09/2024 8:11 AM EDT Malia Hall MD LAB BLOOD ORDERABLES Final Result Performing Organization Address City/State/[facility] Co de Phone Number [facility] [address] [place] [phone] documented in this encounter Visit Diagnoses Diagnosis Palpitation- Primary Palpitations SOB (shortness of breath) on exertion Shortness of breath Chronic fatigue Other malaise and fatigue documented in this encounter Additional Health Concerns Assessment Noted Time PHQ-9 Depression Total Score: 13 10/27/ 024 10:37 AM EST documented as of this encounter Care Teams Outcomes Manager Relationship Specialty Start Date End Date Radha Bran MD [address] [place] [phone] PCP - General Family Medicine 10/16/20 documented as of this encounter
--- OUTSIDE RECORDS SUMMARY | 2024-11-11 14:41 | XMS_ITS | Encounter Summary ---
Author Organization [employer] Address [address] [facility] 7 [place] [address] Care Team Providers Care Uplands Division Director Name Role Phone Radha Bran MD Primary Care Provider + Reason for Visit * Reason Onset Date Comments Chart Prep 11/02/2024 Encounter Details Date Type Department Care Team ([facility] st Contact Info) Description 11/02/2024 Telephone [facility] [address] [place] [address] Radha Bran MD [address] [place] [phone] Chart Prep Social History Tobacco Use Types [...] Description 12/15/2024 10:30 AM EDT Office Visit [facility] [address] [place] [address] Radha Bran MD [address] [place] [address] documented as of this encounter Visit Diagnoses Not on filedocumented in this encounter Additional Health Concerns Assessment Noted Time PHQ-9 Depression Total Score: 13 024 10:37 AM EST documented as of this encounter Care Teams Uplands Division Director Relationship Specialty Start Date End Date Radha Bran MD [address] [place] [phone] PCP - General Family Medicine 10/16/20 documented as of this encounter
--- OUTSIDE RECORDS SUMMARY | 2024-11-11 14:41 | XMS_ITS | Encounter Summary ---
Author Organization [employer] Address [address] [facility] 7t [place] [address] Care Team Providers Care Bridge Maintenance Worker Name Role Phone Radha Bran MD Primary Care Provider + Reason for Visit * Reason Onset Date Comments Results 11/11/2024 Encounter Details Date Type Department Care Team ([facility] st Contact Info) Description 11/11/2024 Telephone [facility] [address] [place] [address] Maddie Maurer RN Results Social History Tobacco Use Types Packs/Day Years [...] encounter Miscellaneous Notes * Telephone Encounter - Maddie Maurer RN - 11/11/2024 10:40 AM EDT TC placed to pt with S regulator pin inserter Elza #[id number] to inform of pt most recent lab results below. Pt advised that vit D is on the lower side and some of the inflammatory markers are elevated. Resultsfor RADHA anc CCP are still pending. Pt agreeable and reminded of appt with PCP on 12/15/2024 at 1030. ----- Message from Malia Hall MD sent at 11/10/2024 4:16 PM EDT ----- Pleas let patient know I reviewed her labs her vitamin D is a little low, her inflammatory markers are slightly high other labs are view as normal Im still waiting for RADHA and CCP which are markers for autoimmune disease I recommend to f/u with cardiology and PCP thank you documented in this encounter Plan of Treatment Upcoming Encounters Date Type Department Care Team (Late st Contact Info) Description 12/15/2024 10:30 AM EDT Office Visit [facility] [address] [place], [place] [phone] Radha Bran MD [address] [place] [address] documented as of this encounter Visit Diagnoses Not on filedocumented in this encounter Additional Health Concerns Assessment Noted Time PHQ-9 Depression Total Score: 13 10/27/ 024 10:37 AM EST documented as of this encounter Care Teams Bridge Maintenance Worker Relationship Specialty Start Date End Date Radha Bran MD [address] [place] [phone] PCP - General Family Medicine 10/16/20 documented as of this encounter
--- OUTSIDE RECORDS SUMMARY | 2024-11-11 14:41 | XMS_ITS | Encounter Summary ---
Author Organization [employer] Address [address] [facility] 7t [place] [address] Care Team Providers Care Skiff Operator Name Role Phone Radha Bran MD Primary Care Provider + Encounter Details Date Type Department Care Team (Late st Contact Info) Description 11/09/2024 Orders Only GENERIC EXTERNAL DATA DEPARTMENT Provider, [...] t he electric, gas, oil or water [employer] threatened to shut off services in your [...] Description 12/15/2024 10:30 AM EDT Office Visit [facility] [address] [place] [address] Radha Bran MD [address] [place] [address] documented as of this encounter Procedures Procedure Name Priority Date/Time Associated Diagnosis Comments PROTEIN CREATININE RATIO, URINE Routine 11/09/2024 8:02 AM EDT UREA NITROGEN (BUN) Routine 11/09/2024 8 :00 AM EDT documented in this encounter Results * (ABNORMAL) Protein Creatinine Ratio, Urine (11/09/2024 8:02 AM EDT) Creatinine, Urine 265.18 mg/dL [facility] Protein, Total, Random Urine 61(H) <12 mg/dL [facility] Protein/Creati nine Ratio, Ur 0.23(H) <0.2 [facility] Comment:The spot urine prote in:creatinine ratio may increase to 0.3during normal . 11/09/2024 8:02 AM EDT 11/09/2024 8:20 AM EDT us Generic External Data Provider LAB URINE ORDERAB LES Final Result [facility] [address] [place] [phone] [phone] * (ABNORMAL) BUN (Blood Urea Nitrogen) (11/09/2024 8:00 AM EDT) Urea Nitrogen (BUN) 18(H) 9 - 16 mg/dL [facility] 11/09/2024 8:00 AM EDT 11/09/2024 8:11 AM EDT us Generic External Data Provider LAB BLOOD ORDERAB LES Final Result Performing Organization Address City/State/[facility] Co de Phone Number [facility] [address] [place] [address] [phone] documented in this encounter Visit Diagnoses Not on filedocumented in this encounter Additional Health Concerns Assessment Noted Time PHQ-9 Depression Total Score: 13 10/27/ 024 10:37 AM EST documented as of this encounter Care Teams Skiff Operator Relationship Specialty Start Date End Date Radha Bran MD [address] [place] [phone] PCP - General Family Medicine 10/16/20 documented as of this encounter
--- OUTSIDE RECORDS SUMMARY | 2024-11-11 14:41 | XMS_ITS | Encounter Summary ---
Author Organization [employer] Address [address] [facility] 7t [place] [address] Care Team Providers Care Hot Knife Foxing Cutter Name Role Phone Radha Bran MD [...] t he electric, gas, oil or water [employer] threatened to shut off services in your [...] 12/15/2024 10:30 AM EDT Office Visit [facility] [address] [place], [place] [phone] Radha Bran MD [address] [place] [address] documented as of this encounter Procedures Procedure Name Priority Date/Time Associated Diagnosis Comments GLUCOSE, WHOLE BLOOD Routine 11/02/2024 1:25 PM EST documented in this encounter Results * (ABNORMAL) Glucose, Whole Blood (11/02/2024 1:25 PM EST) Glucose, Whole Blood 145(H) 60 - 115 mg/dL [facility] Comment:METER #: [id number] Testing performed in the Endocrinology Department [address], [address], [facility]. 11/02/2024 1:25 PM EST 11/02/2024 1:30 PM EST us Generic External Data Provider LAB BLOOD ORDERAB LES Final Result [facility] [address] [place] [address] [phone] documented in this encounter Visit Diagnoses Not on filedocumented in this encounter Additional Health Concerns Assessment Noted Time PHQ-9 Depression Total Score: 13 10/27/ 024 10:37 AM EST documented as of this encounter Care Teams Hot Knife Foxing Cutter Relationship Specialty Start Date End Date Radha Bran MD [address] [place] [phone] PCP - General Family Medicine 10/16/20 documented as of this encounter
--- OUTSIDE RECORDS SUMMARY | 2024-11-11 14:41 | XMS_ITS | Data Portability ---
Author Organization [employer] [facility], [place] in - [facility] Address [address] [place] [phone] Care Team Providers Care Line Palletizer Name Role Phone [facility] Referring Provider [facility] Referring Provider Assessment Encounter Date Assessment Date Assessment LastModified by Organization Details LastModified Time 03/17/2022 03/17/2022 I have reviewed and agree with the Assessment and Plan as documented by the [employer] [place] Manager. I provided real -time medical direction via [...] go to the ER- report called to [facility] Not available 03/18/2022 21:31:13 Plan of Treatment Reminders Order Date Submit Date Provider Last Modified By Organization Details Last Modified Time Details Appointments None recorded. Lab None recorded. Referral None recorded. Procedures None recorded. Surgeries None recorded. Imaging electrocard iogram 2021 022 [email or web address] 0 [facility], [address] [place] [address], [phone], 21:32:45 Medication Orders None recorded. Patient TargetsNo targets recorded. Patient InstructionsNo instructions recorded. Reason for Referral None Reported. Results Created Date Observation Date Name Description Value Unit Range Abnormal Flag Note LastModifiedBy Organization Detail LastModifiedTime 03/18/20 22 03/18/2022 elect doug dupontgr am No observ ation record ed. [email or web address] [address], [phone], 03/18/2022 21:32:33 Result Notes None recorded. Procedures Surgical History None recorded. Imaging Results Imaging Date Name Status LastModified by Organization Details LastModified Time 03/18/2022 electrocardiogram completed [email or web address] [address], [place], [phone], 03/18/2022 21:32:33 Procedure Notes None recorded. Medical [...] Address Organization Details Last Updated DateTime 2 615574. 2 g 157.48 cm 97.8 [degF] 97 [...] 2768 Chelsea Hernandez MD Main - instED [address] [place] [phone] 03/17/2022 16:53:01 05/13/2022 21:10:03 Chest pain [id number] R07.9 Health Concerns Section Related Observation LastModified by Organization Detai ls LastModified Time None Recorded Concern Status LastModified by Organization Details LastModified Time None Recorded Advance Directives Directive None Recorded Payers Encounter Date Sequence Insurance Name Policy Number Policy Wagner Covered Member ID Wagner Member ID Guarantor Name 03/17/2022 1 [facility] - DOS PRIOR TO 2022 - DUAL ELIGIBLE (MEDICARE REPLACEMENT/ADV ANTAGE - HMO) Halley Ramon [id number] Halley Ramon Notes Date Note Type Note [...] ................... ................... ................... ................... ................... ................... ........ Sugar Plant[employer] Manager Note: Sent to a call for a pt complaining of chest pain and sob. [facility] arrives on scene, pt arrives home in a van. Pt is alert and oriented. Airway is patent. Fish Hatchery Superintendent line used for communication as pt's primary language is Prydeinig. Pt complains of left lateral neck pain [...] dizziness, n/v/d, abd pain, fever/chills or loc. [facility] orders 12 lead ECG. [facility] advises pt to be transported to ED for further evaluation/treatmen t. Pt agrees. Pt care is transferred to [facility]. Pt transported to [facility]. ................... ................... ................... ................... ................... ................... ................... ........ Disposition: FulfilledSEGMD- as above-Pat seen at [facility] 03/06/22- was having neck pain and headache at the time-denied having CP or telling staff she had CP.- that started more recently. She finished the antibiotics- was also given albuterol, but she did not use it as it was making her nervous/ shakey//has minimal cough- clear phlegm. She reports she sees a lasting room supervisor, but does not know her cardiac dx. Has hx obesity/ DM/ HTN/REY / panic d/o per old record. Quit smoking > 35 yrs ago- pat reports no known family hx CAD. Chelsea Hernandez MD [address] [facility],[address], [place], [address], [employer] 03/18/2022 21:32:58 OBGyn Episode No OBEpisode recorded.
--- OUTSIDE RECORDS SUMMARY | 2024-11-11 14:41 | XMS_ITS ---
Author Name Maribel Vann NP Address [address] [place] [address] Phone [phone] [facility] Care Team Providers Care Area Development Consultant Name Role Phone Maribel Vann Unavailable [phone] [facility] Unavailable [place], [facility] Unavailable [phone] [place]/[facility] [place] Unavailable Unavailable Unavailable [phone] Unavailable Unavailable [phone] [employer] Unavailable [phone] Pedro Mohamud Unavailable [phone] Radha Bran Unavailable Reason for Referral Not Available Allergies, adverse reactions, alerts No known allergies History of medication use Medication Class Instructions Start Date End Date Fluocinolone Acetonide Body 0.01 % Oil APPLY BOTTLE TOPICALLY TO THE AFFECTED AREA IN THE MORNING 2022-08-13 No Data Available B-D KURTIS 2ND GEN PEN NDL [id number] USE TO INJECT FOUR TIMES DAILY 2022-08-28 [...] Data Available 2023-06-03 No D aries Available [employer] PlanTouch Verio Flex System w/Device Kit USE TO [...] time a day 2024-04-21 No Data Available [place] Nasal [place] 0.65 % Solution Nasal 2 sprays intranasally [...] mg Tab Take 1 tablet by mo [facility] [place] daily 2023-12-04 No Data Available CALCIUM 600D [...] Active 2023-02-06 N/A Other problems related to [place] dical facilities and other health care Active 2024-05-03 N/A Iron deficiency anemia Active 2023-02-06 N/A Encounters Encounters Type Facility Date of Service Diagnosis/Co mplaint No Data Available [facility] [place]2023 Morbid (severe) obesity due to excess caloriesBody mass index (BMI) 40.0-44.9, adultType 2 diabetes w unsp diabetic retinopathy w macular edemaMajor depressive disorder, recurrent, mildIron deficiency anemia, unspecifiedUnspecified urinary incontinenceUnspecified asthma, uncomplicatedObstructive sleep apnea (adult) (pediatric)2-part nondisp fx of surg nk of l humer, 7thDEssential (primary) hypertensionHistory of fallingDifficulty in walking, not elsewhere classified No Data Available [facility] [place] 04/09/2023 No Data Available [facility]2023 No Data Available [facility]2023 No Data Available [facility]2023 No Data Available [facility]2023 No Data Available [facility] 04/[place]2023 Estab. patient 20-29min; 1 stable chronic or 2 minor; add add modifier 95 for video, modifier 93 for phone [facility] [place] 05/06/2023 Type 2 diabetes w unsp [...] 95 for video, modifier 93 for phone [facility] 05/06/2023 Estab. patient 20-29min; 1 stable chronic or 2 minor; add add modifier 95 for video, modifier 93 for phone [facility] 05/06/2023 Estab. patient 20-29min; 1 stable chronic or 2 minor; add add modifier 95 for video, modifier 93 for phone [facility] 05/06/2023 No [facility] [place] [facility]23 History of fallingDifficulty in walking, not elsewhere classified No Data Available [facility] 06[place]15/2023 No Data Available [facility] [place]2023 History of fallingDifficulty in walking, not elsewhere classifiedPersonal history of (healed) traumatic fracture No Data Available [facility] 06/16/2023 No Data Available [facility] No Data Available [facility]23 No Data Available [facility]2023 Difficulty in walking, not elsewhere classifiedHistory of fallingPersonal history of (healed) traumatic fracture No Data Available [facility]2023 Estab. patient 30-39min; chronic exacerbation, 2 stable chronic or 1 acute illness add add modifier 95 for video, (do not use for phone, instead use 82514-93) [facility]2023 Morbid (severe) obesity due to [...] (do not use for phone, instead use 37685-08) [facility] Estab. patient 30-39min; chronic exacerbation, 2 stable chronic or 1 acute illness add add modifier 95 for video, (do not use for phone, instead use 35902-09) [facility] 07/15/2023 Estab. patient 30-39min; chronic exacerbation, 2 stable chronic or 1 acute illness add add modifier 95 for video, (do not use for phone, instead use 12183-40) [facility] 07/15/2023 Estab. patient 30-39min; chronic exacerbation, 2 stable chronic or 1 acute illness add add modifier 95 for video, (do not use for phone, instead use 21952-91) [facility] 07/[place]/2023 No Data Available [facility] 08/14/2023 Morbid (severe) obesity due to excess caloriesBariatric surgery statusUnspecified asthma, uncomplicatedHistory of fallingDifficulty in walking, not elsewhere classifiedPersonal history of (healed) traumatic fracture No Data Available [facility] 08/14/2023 No Data Available [facility] 09/09/2023 Urinary tract infection, sit e not specified No Data Available [facility] 09[place]10/2023 Urinary tract infection, sit e not specifiedHistory of fallingDifficulty in walking, not elsewhere classifiedPersonal history of (healed) traumatic fracture No Data Available [facility] 09/10/2023 Estab. patient 30-39min; chronic exacerbation, 2 stable chronic or 1 acute illness add add modifier 95 for video, (do not use for phone, instead use 85488-19) [facility] 09/18/2023 Urinary tract infection, sit e [...] (do not use for phone, instead use 00593-28) [facility] 09/18/2023 Estab. patient 30-39min; chronic exacerbation, 2 stable chronic or 1 acute illness add add modifier 95 for video, (do not use for phone, instead use 31711-01) [facility] 09[place]18[place]20[place] Estab. patient 30-39min; chronic exacerbation, 2 stable chronic or 1 acute illness add add modifier 95 for video, (do not use for phone, instead use 49912-93) [facility] 09/18[place]2023 Estab. patient 30-39min; chronic exacerbation, 2 stable chronic or 1 acute illness add add modifier 95 for video, (do not use for phone, instead use 22244-78) [facility] 09/18/2023 Estab. patient 30-39min; chronic exacerbation, 2 stable chronic or 1 acute illness add add modifier 95 for video, (do not use for phone, instead use 69541-85) [facility] 09/18/2023 Estab. patient 30-39min; chronic exacerbation, 2 stable chronic or 1 acute illness add add modifier 95 for video, (do not use for phone, instead use 94720-81) [facility] 09/18/2023 Estab. patient 30-39min; chronic exacerbation, 2 stable chronic or 1 acute illness add add modifier 95 for video, (do not use for phone, instead use 76280-15) [facility] 09/18/2023 Estab. patient 30-39min; chronic exacerbation, 2 stable chronic or 1 acute illness add add modifier 95 for video, (do not use for phone, instead use 14542-84) [facility] 09/18/2023 No Data Available [facility] 04/[place]/2024 Morbid (severe) obesity due to excess caloriesBariatric surgery statusType 2 diabetes w unsp diabetic retinopathy w macular edemaUnspecified urinary incontinenceUnspecified asthma, uncomplicatedObstructive sleep apnea (adult) (pediatric)Essential (primary) hypertensionBody mass index (BMI) 40.0-44.9, adultMajor depressive disorder, recurrent, mildOther problems related to medical facilities and other health careHeadache, unspecifiedOther chronic pain No Data Available [facility] 04[place]2024 No Data Available [facility] 04/[place]2024 No Data Available [facility] 04/[place]2024 No Data Available [facility] [place] No Data Available [facility] [place]2024 No Data Available [facility] [place] 04/[place]2024 No Data Available [facility] [place] 05[place]2024 Type 2 diabetes w unsp diabe tic retinopathy w macular edemaAllergic contact dermatitis due to plants, except foodEncounter for other specified aftercareOther problems related to medical facilities and other health careLong term (current) use of insulin No Data Available [facility] [place] 05/03/2024 No Data Available [facility] 08/26/2024 Flu due to unidentified influenza virus w oth resp manifestPersons encountering health services in other specified circumstancesOther problems related to medical facilities and other health care No Data Available [facility] [place] 08/[place]/2024 No Data Available [facility] [place] 08/[place]20[place] Estab. patient 10-29min; 1 minor problem; add add modifier 95 for video, modifier 93 for phone [facility] [place] 09/22/2024 Type 2 diabetes w unsp diabe tic retinopathy w macular edemaUnspecified asthma, uncomplicatedObstructive sleep apnea (adult) (pediatric)Body mass index (BMI) 40.0-44.9, adultOther problems related to medical facilities and other health care Estab. patient 10-29min; 1 minor problem; add add modifier 95 for video, modifier 93 for phone [facility] [place] 09/22/2024 Estab. patient 10-29min; 1 minor problem; add add modifier 95 for video, modifier 93 for phone [facility] [place] 09/22/2024 Estab. patient 10-29min; 1 minor problem; add add modifier 95 for video, modifier 93 for phone [facility] [place] 09/22/2024 Estab. patient 10-29min; 1 minor problem; add add modifier 95 for video, modifier 93 for phone [facility] 10/21/2024 Unspecified urinary incontinenceOther [...] Time Current Smoking Status Former smoker 2024-10-29 4 Sex Female History of Procedures Procedures Service Procedure code Service date Servicing provider Phone# No Data Available [id number] 2023-04-09 No Data Available No Data Available [...] 95 for video, modifier 93 for phone [id number] 2023-05-06 No Data Available No Data Availa [...] No Data Carli ilable No Data Available [id number] 2023-06-16 No Data Available No Data Available Medication List Documented (1159F) 1159F 2023-06-16 No Data Available No Data Carli ilable Pain Assessment - Pain Documented on a Pain Scale (1125F) 1125F 2023-06-16 No Data Available No Data Carli ilable BMI obtained (3008F) 3008F 2023-06-16 No Data Availab le No Data Available No Data Available [id number] 2023-07-08 No Data Available No Data Available Medication List Documented (1159F) 1159F 2023-07-08 No Data Available No Data Carli ilable Estab. patient 30-39min; chronic exacerbation, 2 stable chronic or 1 acute illness add add modifier 95 for video, (do not use for phone, instead use 88971-86) 61519 2023-07-15 No Data Available No Data Availa [...] No Data Carli ilable No Data Available [id number] 2023-08-14 No Data Available No Data Available Medication List Documented (1159F) 1159F 2023-08-14 No Data Available No Data Carli ilable No Data Available [id number] 2023-09-09 No Data Available No Data Available No Data Available [id number] 2023-09-10 No Data Available No Data Available Medication List Documented (1159F) 1159F 2023-09-10 No Data Available No Data Carli ilable Estab. patient 30-39min; chronic exacerbation, 2 stable chronic or 1 acute illness add add modifier 95 for video, (do not use for phone, instead use 52067-46) 64908 2023-09-18 No Data Available No Data Availa [...] No Data Avail able No Data Available [id number] 2024-04-21 No Data Available No Data Available [...] le No Data Available No Data Available [id number] 2024-05-03 No Data Available No Data Available Medication List Documented (1159F) 1159F 2024-05-03 No Data Available No Data Carli ilable No Data Available [id number] 2024-08-26 No Data Available No Data Available [...] 95 for video, modifier 93 for phone [id number] 2024-09-22 No Data Available No Data Availa [...] 95 for video, modifier 93 for phone [id number] 2024-10-21 No Data Available No Data Availa [...] Patient Education to avoid future hospitalization: Call [facility] if symptoms of illness develop.History of [...] units TID AC meals and FU with trench digger helper in February,Wears rafaela paduses inhaler Flovent BIDHas [...] units TID AC meals and FU with trench digger helper in February,Wears rafaela padNeeds chux pads, XL pull-ups, gloves XLuses inhaler Flovent BIDHas CPAP using nightlyContinue lovenox as directedAdvancing home PTencouraged UE activity as toleratedHas not been taking BP medication since surgery 2 months ago on broken footApril 2022 had a bad fall on steps at entrance to home. Fractured L foot, L?knee, L shoulderStill unable to walkUsing wheelchairNow [facility] think about whether she wants a therapist 2023-06-15 13:39:58 Phone (patient, pare nt, or guardian); 5-10 minutes of medical discussion (no modifier 95)Continue to see PCP. Follow-up with [facility] as needed for any acute or disease education needs that may arise 23/03.November 2022 had a bad fall on steps at entrance to home. Fractured L foot, L?knee, L shoulderStill unable to walkUsing darcnmofsc84/16/2023er son, can only walk very short distances [...] unable to walkUsing wheelchairNow [facility], can only walk very short [...] and we need videocall. Tablet needs a local company tanker driver, will send and schedule videocall for next [...] unable to walkUsing wheelchairNow [facility], can only walk very short [...] to PT but after she returns from [place] in .Can start in October. 2023-08-14 12:38:06 [...] unable to walkUsing wheelchairNow [facility]er son, can only walk very short [...] and we need videocall. Tablet needs a local company tanker driver, will send and schedule videocall for next [...] 09/10/23.UPDATE 09/10/2023t has not yet gone to coal picker prescription. Feels about the same. Education [...] 09/10/23.UPDATE 09/10/2023t has not yet gone to coal picker prescription. Feels about the same. Education [...] unable to walkUsing wheelchairNow [facility], can only walk very short [...] and we need videocall. Tablet needs a local company tanker driver, will send and schedule videocall for next [...] units TID AC meals and FU with trench digger helper Reports stableWears rafaela padNeeds chux pads, XL pull-ups, gloves XLuses inhaler Flovent BIDHas CPAP using nightlyContinue lovenox as directedAdvancing home PTencouraged UE activity as toleratedHas not been taking BP medication aftersurgery on broken footUPDATE 09/18/2023eports compliance nowApril 2022 had a bad fall on steps at entrance to home. Fractured L lower leg, L shoulderStill unable to walkUsing wheelchairNow [facility]er son, can only walk very short [...] and we need videocall. Tablet needs a local company tanker driver, will send and schedule videocall for next week.Having some pain on her left knee, this is not new, Will FU w video.08/14/2023 Has not heard from [facility] but has not been home. Will see if they have called or if it has arrived and will let us know.08/21/2023 ordered in-home eval for [facility]ooter09/10/2023Need to do videocall so need to schedule [...] 09/10/23.UPDATE 4Pt has not yet gone to coal picker prescription. Feels about the same. Education [...] individual diagnosis for contingency plan.previously diagnosed 01/20/23 Backpack Ctrmanage painstable 2024-04-21 09:19:41 Phone (patient, pare nt, or guardian); 5-10 minutes of medical discussion (no modifier 95)Continue to see PCP. Follow-up with [facility] as needed for any acute or disease [...] units TID AC meals and FU with trench digger helper Reports stableWears rafaela padNeeds chux pads, XL [...] thinking about going to the ER? ResolvedNext [employer] scheduled appt/call: Patient education provided: Y lynn call us if similar situation arises in future. Avoid this plant in the futureHow else can we help? Refill (See DM)Member trained on use of ? Red Button? for urgent needs and provided with [employer] phone # as an alternative method to [...] units TID AC meals and FU with trench digger helper Reports stable09/22/24feels well, denies hypo/hyperglycemic episodescontinues to use CGM and insulin pump A1c 6.9 05/24/24uses inhaler Flovent BIDuses nebulizer 09/22/24denies SOBHas CPAP using nightlyCOPD CONTINGENCY PLANLast updated: 09/22/2024[facility] the following symptoms: Increased [...] incontinence supplies ordered 2 months ago by [facility] cc, but has not received yet. Is [...]
--- OUTSIDE RECORDS SUMMARY | 2024-11-11 14:41 | XMS_ITS | Encounter Summary ---
Author Organization [employer] Address [address] [place] [address] Care Team Providers Care Drying Oven Tender Name Role Phone Radha Bran MD Primary Care Provider + Reason for Visit * Reason Onset Date Comments Nurse Triage 11/03/2024 Encounter Details Date Type Department Care Team ([facility] st Contact Info) Description 11/03/[address] [facility] [address] [place] [address] Rdaha Bran MD [address] [place] [address] Nurse Triage Social History Tobacco Use Types [...] 11/03/2024 1:00 PM EST Called pt. Via [employer] substation design draftsperson [id number] [address]. Pt. States that she has been [...] 3 days The caller accepted this outcome. [phone] macedonian documented in this encounter Plan of Treatment Upcoming Encounters Date Type Department Care Team (Late st Contact Info) Description 12/15/2024 10:30 AM EDT Office Visit [facility] [address] [place] [address] Radha Bran MD [address] [place] [address] documented as of this encounter Visit Diagnoses Not on filedocumented in this encounter Additional Health Concerns Assessment Noted Time PHQ-9 Depression Total Score: 13 10/27/ 024 10:37 AM EST documented as of this encounter Care Teams Drying Oven Tender Relationship Specialty Start Date End Date Radha Bran MD [address] [place] [address] PCP - General Family Medicine 10/16/20 documented as of this encounter
--- OUTSIDE RECORDS SUMMARY | 2024-11-11 14:41 | XMS_ITS | Encounter Summary ---
Author Organization [employer] Address [address] [facility] [address] [place] [address] Care Team Providers Care Hair Colorist Name Role Phone Radha Bran MD Primary Care Provider + Reason for Visit * Reason Onset Date Comments Durable Medical Equipment 10/08/2023 Encounter Details Date Type Department Care Team ([facility] st Contact Info) Description 10/08/2023 Telephone [facility] MEDICINE [address] [place] [address] Radha Bran MD [address] [place] [address] Durable Medical Equipment Social History Tobacco Use [...] if any questions contact Bunny Sow at [phone]. documented in this encounter Plan of Treatment Upcoming Encounters Date Type Department Care Team (Late st Contact Info) Description 12/15/2024 10:30 AM EDT Office Visit [facility] MEDICINE [address] [place] [address] Radha Bran MD [address] [place] [address] documented as of this encounter Visit Diagnoses Not on filedocumented in this encounter Care Teams Hair Colorist Relationship Specialty Start Date End Date Radha Bran MD [address] [place] [id number] PCP - General Family Medicine 10/16/20 documented as of this encounter
--- OUTSIDE RECORDS SUMMARY | 2024-11-11 14:41 | XMS_ITS | Encounter Summary ---
Author Organization [facility] Address [address] [place] [address] 7 [place] [address] Care Team Providers Care Clerk To Justice Name Role Phone Radha Bran MD Primary Care Provider + Encounter Details Date Type Department Care Team (Late st Contact Info) Description 08/06/2022 Telephone [facility] MEDICINE [address] [place] [address] [phone] Radha Bran MD [address] [place] [address] Social History Tobacco Use Types Packs/Day Years [...] Description 12/15/2024 10:30 AM EDT Office Visit [facility] MEDICINE [address] [place] [phone] Radha Bran MD [address] [place] [address] [phone] documented as of this encounter Visit Diagnoses Not on filedocumented in this encounter Care Teams Clerk To Justice Relationship Specialty Start Date End Date Radha Bran MD [address] [place] [phone] PCP - General Family Medicine 10/16/20 documented as of this encounter
--- OUTSIDE RECORDS SUMMARY | 2024-11-11 14:41 | XMS_ITS | Encounter Summary ---
Author Organization [employer] Address [address] [place] [address] 7 [place] [address] Care Team Providers Care Application Tester Name Role Phone Radha Bran MD Primary Care Provider + Reason for Visit * Reason Onset Date Comments Letter for School/Work 10/16/2022 Encounter Details Date Type Department Care Team ([facility] st Contact Info) Description 10/16/2022 Telephone [facility] MEDICINE [address] [place] [address] Radha Bran MD [address] [place] [address] Letter for School/Work Social History Tobacco Use [...] Description 12/15/2024 10:30 AM EDT Office Visit [facility] MEDICINE [address] [place], [place] [phone] Radha Bran MD [address] [place] [address] documented as of this encounter Visit Diagnoses Not on filedocumented in this encounter Care Teams Application Tester Relationship Specialty Start Date End Date Radha Bran MD [address] [place], [place] [phone] PCP - General Family Medicine 10/16/20 documented as of this encounter
--- OUTSIDE RECORDS SUMMARY | 2024-11-11 14:42 | XMS_ITS | Clinical Summary ---
Author Organization [employer] Address [address] [place] [address] Care Team Providers Care Biomedical Engineering Professor Name Role Phone Radha Bran MD [...] Active Blood Pressure Monitoring (Blood Pressure Cuff) [facility] blood pressure test kit-large cuff USE DIRECTED [...] 25 Active ergocalciferol (Vitamin D-2) 1.25 MG (28249 UT) capsule Take 1 capsule (1.25 mg) [...] daily 1 more week. Will refer to [facility] for assistance to move to a housing [...] intervention , [facility], Comply with medication , [...] better controlled She has an appointment w/ cake tester in the next 2 wks Continue Humalog + Lantus 24 units + Mounjaro Counseled re more frequent low calorie/carb meals. Check fgstk daily Encouraged physical activity as tolerated. FU w/ cake tester Assessment & Plan (10/12/2023 2:48 PM EST): [...] units TID AC meals and FU with cake tester in February, she will fu with me in 12 weeks Assessment & Plan (01/09/2023 11:10 AM EDT): Uncontrolled. Increase Lantus to 30 units per day and no other medication changes, follow up with cake tester. Assessment & Plan (09/24/2022 10:50 AM EST): Uncontrolled. A1C is worse than last month. Most likely related to acute URI at this time. No change in medications, FU closely with cake tester. COVID-19 09/24/2022 Assessment & Plan (09/24/2022 10:51 [...] covid test is positive. Lesion of right [place] kidney 09/24/2022 Assessment & Plan (09/24/2022 10:53 [...] Plan (01/09/2023 11:08 AM EDT): Refer to [facility] /[facility] to assist with moving to a [...] she seems to be overdue for Avapro roller picker. Continue Avapro 75mg and fu with [...] Encounters Date Type Department Care Team Description 11/11/2024 Telephone [facility] [address] [place] [phone] Maddie Maurer RN Results 11/09/2024 Orders Only GENERIC EXTERNAL DATA DEPARTMENT Provider, Generic External Data 11/03/2024 2:45 PM EST Office Visit [facility] [address] [place] [address] Malia Franklin MD Palpitation (Primary Dx); SOB (shortness of breath) on exertion; Chronic fatigue 11/03/2024 Travel 11/03/[address] [address] Radha Bran MD Nurse Triage 11/02/[address] [address] Radha Bran MD Chart Prep 11/02/2024 Orders Only GENERIC EXTERNAL DATA DEPARTMENT Provider, Generic External Data 10/01/[address] [address] Radha Bran MD 09/21/2024 Orders Only GENERIC EXTERNAL DATA DEPARTMENT Provider, Generic External Data 09/08/[address] [address] Radha Bran MD Durable Medical Equipment 09/06/[address] [address] Radha Bran MD Durable Medical Equipment 08/29/[address] [address] Kennedi Calix RN f/u call 08/25/2024 Orders Only [address] [address] Radha Bran MD 08/24/2024 Orders Only GENERIC EXTERNAL DATA DEPARTMENT Provider, Generic External Data 08/19/[address] [address] Radha Bran MD Durable Medical Equipment from Last 3 Months Immunizations Name Administration [...] Description 12/15/2024 10:30 AM EDT Office Visit [facility] [address] [place] [address] Radha Bran MD [address] [place] [address] Health Maintenance Due Date Last Done Comments [...] Cancer Screening 10/04/2024 SDOH Screening 10/12/2024 10/12/2023 Depression Screening 10/27/2024 10/27/2023, 10/27/19 Diabetes: Hemoglobin A1C 11/21/2024 024, 03/14/2024, 10/12/2023, Additional history exists Diabetes: Foot Exam 03/14/2025 03/14/2024, 03/14/2024, 03/14/2024, Additional history exists Tobacco Screening 05/04/2025 05/04/2024 Diabetes: Urine Protein Screening 11/09/2025 11/09/2024, 03/22/2024, 10/20/2023, Additional history exists Lipid Panel 11/09/2025 11/09/2024, 10/02, 11/19/2022, Additional history exists DTaP/Tdap/Td Vaccines (3 - Td or Tdap) 10/12/2033 10/12/2023, 03/19/2012, 06/29/2007, Additional history exists Hepatitis B Vaccines Completed 07/09/2018, 09/17/2017, 01/31/2014 Pneumococcal Vaccine: 50+ Years Completed 06/04/2020, 07/09/2018, 05/21/2017, Additional history exists Zoster Vaccines Completed 06/26/2022, 12/2019, 09/10/2015 Hepatitis C Screening Completed 11/09/2024 , 10/20/2023, 02/07/2022 HIB Vaccines Aged Out No longer eligi [...] (BUN) Routine 11/09/2024 8 :00 AM EDT FERRITIN Routine 11/09/2024 8:00 AM EDT Chronic [...] 11/09/2024 8: 00 AM EDT Chronic fatigue TSH W/REFLEX TO FT4 Routine 11/09/2024 8 :00 AM EDT Chronic fatigue VITAMIN D,25-OH,TOTAL,IA Routine 11/09/2024 8:00 AM EDT Chronic fatigue LIPID PANEL, STANDARD Routine 11/09/2024 8:00 AM EDT Chronic fatigue HEPATITIS C AB W/REFL TO HCV RNA, QN, PCR Routine 11/09/2024 8:00 AM EDT Chronic fatigue HIV 1/2 ANTIGEN/ANTIBODY, FOURTH GENERATION W/RFL Routine 11/09/2024 8:00 AM EDT Chronic fatigue COMPREHENSIVE METABOLIC PANEL Routine 11/09/2024 8:00 AM EDT Chronic fatigue CBC WITH AUTO DIFFERENTIAL Routine 11/09/2024 8:00 AM EDT Chronic fatigue GLUCOSE, WHOLE BLOOD Routine 11/02/2024 1:25 PM EST GLUCOSE, WHOLE BLOOD Routine 09/21/2024 1:18 PM EST XR CHEST 1 VIEW Routine 08/24/2024 12:50 AM EST COVID-19 ID NOW (Recurve) Routine 08/24/2024 12:37 AM EST INFLUENZA A B2 ID NOW (POLO) Routine 08/24/2024 12:37 AM EST HEMOGLOBIN A1C Routine 05/24/2024 11:53 AM EDT HM MAMMOGRAPHY Routine 11/26/2021 HM COLONOSCOPY Routine 10/04/2019 from Last 3 Months or Most Recently Relevant to Health Maintenance Results * (ABNORMAL) Protein Creatinine Ratio, Urine (11/09/2024 8:02 AM EDT) Creatinine, Urine 265.18 mg/dL [facility] Protein, Total, Random Urine 61(H) <12 mg/dL [facility] Protein/Creati nine Ratio, Ur 0.23(H) <0.2 [facility] Comment:The spot urine prote in:creatinine ratio may increase to 0.3during normal . 11/09/2024 8:02 AM EDT 11/09/2024 8:20 AM EDT us Generic External Data Provider LAB URINE ORDERAB LES Final Result Performing Organization Address [facility]/ZIP Co de Phone Number [facility] [address] [place] [phone] * (ABNORMAL) Vitamin D, 25-Hydroxy, Total, Immunoassay (11/09/2024 8:00 AM EDT) Vitamin D 25-OH Total 19.7(L) >30 ng/mL [facility] Comment: Health Based Reference Values*< 20 ??ng/mL ??Jynxnmgrt09-15 ng/mL ??Insufficient> 30 ??ng/mL ??Sufficient*Taras SUAZO. N [...] BLOOD ORDERABLES Final Result Performing Organization Address City/[facility]/ZIP Co de Phone Number [facility] [address] [place] [phone] * Vitamin B12/Folate, Serum Panel (11/09/2024 8:00 AM EDT) Pathologist [facility] Vitamin B12 525 200 - 900 pg/mL [facility] Comment:NORMAL 200-900 PG/ML INDETERMINATE 160-199 PG/ML DEFICIENT < 160 PG/ML Folate 9.0 > or = 4.0 ng/mL [facility] Comment:Reference Values:> o r = 4.0 ng/mL< 4.0 ng/mL suggests folate deficiency Methotrexate, aminopterin and folinic acid(leucovorin) are chemotherapeutic agents whose molecularstructures are similar to folate; therefore, the Architectfolate assay cannot be used for patients using these drugs. Blood Venous blood specimen / Unknown 11/09/2024 8:00 AM EDT 11/09/2024 8:11 AM EDT us Malia Hall MD LAB BLOOD ORDERABLES Final Result [facility] [address] [place] [phone] * TSH with Reflex to Free T4 (11/09/2024 8:00 AM EDT) Pathologist [facility] TSH reflex Free T4 3.69 0.32 - 4.0 uIU/mL [facility] Blood Venous blood specimen / Unknown 11/09/2024 8:00 AM EDT 11/09/2024 8:11 AM EDT us Malia Hall MD LAB BLOOD ORDERABLES Final Result [facility] [address] [place] [phone] * (ABNORMAL) CBC auto differential (11/09/2024 8:00 AM EDT) Pathologist [facility] White Blood Count 6.7 4.8 - 10.8 X10*3/uL [facility] Red Blood Count 4.71 4.20 - 5.50 X10*6/uL [facility] Hemoglobin 13.4 12.0 - 16.0 g/dl [facility] Hematocrit 39.8 37.0 - 47.0 % [facility] Mean Corpuscular Volume 84.5 80.0 - 98.0 fL [facility] Mean Corpuscular Hemoglobin 28.5 27.0 - 33.0 pg [facility] Mean Corpuscular HGB Conc 33.7 31.0 - 35.0 g/dl [facility] Red Cell Distribution Width 13.4 11.0 - 16.0 % [facility] Platelet Count 199 160 - 400 X10*3/uL [facility] Mean Platelet Volume 11.4 9.4 - 12.3 fL [facility] Neutrophils Percent Auto 57.9 45 - 73 % [facility] Imm Gran Pct Auto 0.5(H) 0.0 - 0.4 % [facility] Lymphocytes Percent Auto 32.6 20 - 40 % [facility] Monocytes Percent Auto 6.9 2 - 11 % [facility] Eosinophils Percent Auto 1.8 0 - 4 % [facility] Basophils Percent Auto 0.3 0 - 2 % [facility] NRBC Pct Auto 0.0 0.0 - 0.2 /100WBC [facility] Neutrophils Absolute Auto 3.9 2.0 - 8.3 x10*3/uL [facility] Imm Gran Abs Auto 0.03 0.00 - 0.03 X10*3/uL [facility] Lymphocytes Absolute Auto 2.2 1.2 - 4.9 X10*3/uL [facility] Monocytes Absolute Auto 0.5 0.1 - 1.2 X10*3/uL [facility] Eosinophils Absolute Auto 0.1 0.0 - 0.4 X10*3/uL [facility] Basophils Absolute Auto 0.0 0.0 - 0.2 X10*3/uL [facility] NRBC Abs Auto 0.000 0.0 - 0.012 X10*3/uL [facility] Blood Venous blood specimen / Unknown 11/09/2024 8:00 AM EDT 11/09/2024 8:11 AM EDT Malia Hall MD LAB BLOOD ORDERABLES Final Result Performing Organization Address [facility]/ZIP Co de Phone Number [facility] [address] [place] [phone] * Hepatitis C Antibody with Reflex to HCV, RNA, Quantitative, Real-Time PCR (11/09/2024 8:00 AM EDT) Hepatitis C Antibody Nonreactive Nonreactive [facility] Comment:Antibodies to HCV no t detected; does not exclude early acuteHCV infection. Blood Venous blood specimen / Unknown 11/09/2024 8:00 AM EDT 11/09/2024 8:11 AM EDT us Malia Hall MD LAB BLOOD ORDERABLES Final Result Performing Organization Address [facility] Co de Phone Number [facility] [address] [place] [phone] * Cyclic Citrullinated Peptide (CCP) Antibody (IgG) (11/09/2024 8:00 AM EDT) Cyclic Citrullinated Peptide <16 UNITS [facility] Comment:Reference RangeNegat maggie: <20Weak Positive: 20-39Moderate Positive: 40-59Strong Positive: >59THIS TEST WAS PERFORMED AT:[employer] [address] [phone] WEINSTEIN MD Blood Venous blood specimen / Unknown 11/09/2024 8:00 AM EDT 11/09/2024 8:11 AM EDT Malia Hall MD LAB BLOOD ORDERABLES Final Result Performing Organization Address City/[facility]/ZIP Co de Phone Number [facility] [address] [place] [phone] * Iron And Total Iron Binding Capacity (11/09/2024 8:00 AM EDT) Iron 51 30 - 160 mcg/dL [facility] Total Iron Binding Capacity 267 228 - 428 mcg/dL [facility] Percent Iron Saturation 19 15 - 50 % [facility] Unsaturated Iron Binding 216 ug/dL [facility] Blood Venous blood specimen / Unknown 11/09/2024 8:00 AM EDT 11/09/2024 8:11 AM EDT us Malia Hall MD LAB BLOOD ORDERABLES Final Result [facility] [address] [place] [phone] * HIV-1/2 Antigen and Antibodies, Fourth Generation, with Reflexes (11/09/2024 8:00 AM EDT) Pathologist [facility] HIV AB/AG Nonreactive Nonreactive [facility] Comment:HIV-1 p24 Ag and/or HIV-1/HIV-2 Ab not detected.A test result that is nonreactive does not exclude thepossibility of exposure to or infection with HIV-1 and/orHIV-2. Nonreactive results in this assay for individualswith prior exposure to HIV-1 and/or HIV-2 may be due toantigen and antibody levels that are below the limit ofdetection of this assay.The InfiKno HIV Ag/Ab Combo assay result andsupplemental assay results should be interpreted inconjunction with the patient's clinical presentation,history and other laboratory results. If the results areinconsistent with clinical evidence, additional testing issuggested to confirm the result. Blood Venous blood specimen / Unknown 11/09/2024 8:00 AM EDT 11/09/2024 8:11 AM EDT us Malia Hall MD LAB BLOOD ORDERABLES Final Result Performing Organization Address [facility] Co de Phone Number [facility] [address] [place] [phone] * (ABNORMAL) Sed Rate by Modified Westergren (11/09/2024 8:00 AM EDT) Erythrocyte Sedimentation Rate 27(H) 0 - 20 MM/HR [facility] Comment:Patients with polycy themia and many hemoglobin abnormalitiesmay have depressed sed rates whereas patients with anemiamay have elevated sed rates. Blood Venous blood specimen / Unknown 11/09/2024 8:00 AM EDT 11/09/2024 8:11 AM EDT us Malia Hall MD LAB BLOOD ORDERABLES Final Result Performing Organization Address [facility] Co de Phone Number [facility] [address] [place] [phone] * (ABNORMAL) C-reactive Protein (11/09/2024 8:00 AM EDT) C Reactive Protein 0.85(H) < or = 0.50 mg/dL [facility] Blood Venous blood specimen / Unknown 11/09/2024 8:00 AM EDT 11/09/2024 8:11 AM EDT us Malia Hall MD LAB BLOOD ORDERABLES Final Result Performing Organization Address [facility] Co de Phone Number [facility] [address] [place] [phone] * (ABNORMAL) BUN (Blood Urea Nitrogen) (11/09/2024 8:00 AM EDT) Urea Nitrogen (BUN) 18(H) 9 - 16 mg/dL [facility] 11/09/2024 8:00 AM EDT 11/09/2024 8:11 AM EDT us Generic External Data Provider LAB BLOOD ORDERAB LES Final Result Performing Organization Address City/[facility]/ZIP Co de Phone Number [facility] [address] [place] [phone] * Ferritin (11/09/2024 8:00 AM EDT) Ferritin 36 10 - 250 ng/mL [facility] Blood Venous blood specimen / Unknown 11/09/2024 8:00 AM EDT 11/09/2024 8:11 AM EDT us Malia Hall MD LAB BLOOD ORDERABLES Final Result Performing Organization Address [facility] Co de Phone Number [facility] [address] [place] [phone] * Lipid Panel, Standard (11/09/2024 8:00 AM EDT) Triglycerides 98 <150 mg/dL [facility] Comment:Desirable Triglyceri de: less than 150 mg/dLBorderline High Triglyceride 150-199 mg/dLHigh Triglyceride: 200-499 mg/dLVery High Triglyceride: greater than or equal to 5OO mg/dL Cholesterol 126 <200 mg/dL [facility] Comment:Desirable Cholestero l: less than 200 mg/dLBorderline High Cholesterol: 200-239 mg/dLHigh Cholesterol: greater than 239 mg/dL LDL Cholesterol Calculated 62 <100 mg/dL [facility] Comment:Desirable LDL: less than 100 mg/dLNear Optimal/Above Optimal LDL: 110- 129 mg/dLBorderline High LDL: 130-159 mg/dLHigh LDL: 160-189 mg/dLVery High LDL: greater than or equal to 190 mg/dL HDL Cholesterol 45 >40 mg/dL [facility] Comment:Desirable HDL: great er than 40 mg/dL Note: This HDL assay may give artificially low results in patients with liver disease. Blood Venous blood specimen / Unknown 11/09/2024 8:00 AM EDT 11/09/2024 8:11 AM EDT us Malia Hall MD LAB BLOOD ORDERABLES Final Result [facility] [address] [place] [phone] * (ABNORMAL) Comprehensive Metabolic Panel (11/09/2024 8:00 AM EDT) Sodium 142 135 - 145 mmol/L [facility] Potassium 3.8 3.3 - 5.1 mmol/L [facility] Chloride 111(H) 96 - 108 mmol/L [facility] Carbon Dioxide 25 22 - 29 mmol/L [facility] Anion Gap 10(L) 12 - 20 [facility] Urea Nitrogen (BUN) 17(H) 9 - 16 mg/dL [facility] Creatinine, Serum 0.62 0.5 - 1.4 mg/dL [facility] Estimated Glomerular Filt Rate >60 [facility] Comment:Chronic Kidney Disea se: Estimated GFR < 60 mL/min/1.77b2Fcsdqf Kidney Disease: Estimated GFR < 15 mL/min/1.73m2 Glucose 134(H) 60 - 115 mg/dL [facility] Calcium 8.9 8.4 - 10.2 mg/dL [facility] Bilirubin, Total 0.3 0.0 - 1.0 mg/dL [facility] Aspartate Amino Transferase 23 5 - 31 U/L [facility] Alanine Aminotransferase 30 0 - 31 U/L [facility] Total Protein 7.4 6.5 - 8.0 g/dL [facility] Albumin Level 3.5 3.5 - 5.0 g/dL [facility] Alkaline Phosphatase 62 39 - 117 U/L [facility] Blood Venous blood specimen / Unknown 11/09/2024 8:00 AM EDT 11/09/2024 8:11 AM EDT us Malia Hall MD LAB BLOOD ORDERABLES Final Result Performing Organization Address City/[facility] de Phone Number [facility] [address] [place] [phone] * (ABNORMAL) Glucose, Whole Blood (11/02/2024 1:25 PM EST) Only the most recent of2 resultswithin the time period is included. Glucose, Whole Blood 145(H) 60 - 115 mg/dL [facility] Comment:METER #: [id number] Testing performed in the Endocrinology Department [address] , [address], [facility]. 11/02/2024 1:25 PM EST 11/02/2024 1:30 PM EST us Generic External Data Provider LAB BLOOD ORDERAB LES Final Result Performing Organization Address [facility] de Phone Number [facility] [address] [place] [phone] * XR Chest 1 View (08/24/2024 12:50 AM EST) Anatomical Region Laterality Modality Chest Radiographic [place] ging 08/24/2024 12:5 0 AM EST Narrative 08/24/2024 1:00 AM EST ? [facility] ?[address] ?[place] [address] ?XRay Report ? Signed ? Patient: Halley Sewell ?MR#: [id number] ?? [id number] ? : 1950 ?Acct:[id number] ? Age/Sex: 74 / F ?ADM Date: // ? Loc: HO.ED ? Attending Dr: ? Ordering Physician: Generic ED Physician ?? Date of Service: 08/24/ ?? Procedure(s): XR chest 1V ?? Accession Number(s): [id number] ? cc: Radha Bran MD; Generic ED [...] by Patrice Jones MD in OV> ? 08/24/2456 ? DD/ 0050 ? TD/TT: 08/24/24 0051 ? Daycare Manager: SS ? Procedure Note Donotsimainterpreter, Image - 08/24/2024 [place] [address] XRay Report Signed Patient: Kyrie Sewell#: Buddy [id number] : 1950cct:[id number] Age/Sex: 74 / FADM Date: 08/24/24 Loc: .ED Attending Dr: Ordering Physician: Generic ED Physician Date of Service: 08/24/24 Procedure(s): XR chest 1V Accession Number(s): [id number] cc: Radha Bran MD; Generic ED Physician [...] in OV> 08/24/2456 DD/ 0050 TD/TT: 08/24/24 0051 Daycare Manager: SS [facility] External Provider IMG XR PROCEDURES Final Result * (ABNORMAL) Influenza A B2 ID NOW (Polo) (08/24/2024 12:37 AM EST) IDNOW SERIAL# [id number] [facility] Influenza A Positive(A) Negative [facility] Influenza B2 Negative Negative [facility] Influenza A B2 Note See Note [facility] Comment:The Polo ID NOW [...] LAB MICROBIOLOGY - GENERAL ORDERABLES Final Result [facility] [address] [place] [phone] * COVID-19 ID NOW (POLO) (08/24/2024 12:37 AM EST) IDNOW SERIAL# [id number] [facility] COVID-19 TEST Negative Negative [facility] COVID-19 NOTE See Note [facility] Comment: Results are for the identification of SARS-CoV2 RNA. TheSARS-CoV2 RNA is generally detectable in respiratory samplesduring the acute phase of infection. Positive results areindicative of the presence of SARS-CoV-2 RNA; clinicalcorrelation with patient history and other diagnosticinformation is necessary to determine patient infectionstatus. Positive results do not rule out bacterial infectionor co- infection with other viruses.Testing facilities within the [facility] and itsterritories are required to report [...] use by authorized laboratories.Testing performed on the [employer] NOW utilizing NAAT. 08/24/2024 12:3 7 AM EST 08/24/2024 12:43 AM EST [employer] External Data Provider LAB MOLECULAR SONIA GNOSTICS ORDERABLES Final Result Performing Organization Address [facility] Co de Phone Number [facility] [address] [place] [phone] * (ABNORMAL) Hemoglobin A1c (05/24/2024 11:53 AM EDT) Hemoglobin A1c 6.9(H) <6.0 % [facility] Comment:Hemoglobin A1C Refer ence Range Adults: 4.8 - 6.0 % Non diabetic: < 6.0 % Goal: < 7.0 %Additional Action Suggested: > 8.0 %Note: Hemoglobin A1c results are invalid for patients with abnormal amounts of HbF. Blood transfusions may impact the HbA1c concentration in the patient sample. Estimated Average Glucose 151 mg/dL [facility] Comment:eAG = Estimated ave rage glucose which is %A1C expressed asaverage glucose, using the formula of the K3W-DcjuytvUotemnt Glucose study (ADAG), Diabetes Care, Vol.31,#8,Mar. 2007 05/24/2024 11:5 3 AM EDT 05/24/2024 11:53 AM EDT Generic External Data Provider LAB BLOOD ORDERAB LES Final Result Performing Organization Address [facility] Co de Phone Number [facility] [address] [place] [address] [phone] * Mammography (11/26/2021) Mammogram performed Anatomical Region Laterality Modality Other Historical Provider HEALTH MAINTENANCE Final Result * Colonoscopy (10/04/2019) Colonoscopy performed Historical Provider HEALTH MAINTENANCE Edited Result - Final from Last 3 Months or Most Recently Relevant to Health Maintenance Insurance [facility] STANDARD [facility] DUAL COMPLETE DENTAL - [facility] Care Teams Biomedical Engineering Professor Relationship Specialty Start Date End Date Radha Bran MD [address] [place] [address] [place] [address] PCP - General Family Medicine 10/16/20
== END 2024-11-11 13:42 | disposition home or self-care (01) ==
LOC: HO.HKA 13:09
PROVIDERS: PCP Internal Medicine; Visit Provider Internal Medicine Nephrology
DX: D17.71 Benign lipomatous neoplasm of kidney (principal); E11.21 Type 2 diabetes mellitus with diabetic nephropathy; I10 Essential (primary) hypertension; E55.9 Vitamin D deficiency, unspecified
CPT/HCPCS: 99214

== ENCOUNTER → 2024-11-11 13:09 | Outpatient (BNVA) | payer OTHER, SELFPAY | PROVIDERS: PCP Internal Medicine; Visit Provider Internal Medicine Nephrology | DX: E11.21 Type 2 diabetes mellitus with diabetic nephropathy (principal); E11.42 Type 2 diabetes mellitus with diabetic polyneuropathy; I10 Essential (primary) hypertension; R80.9 Proteinuria, unspecified; D17.71 Benign lipomatous neoplasm of kidney; E55.9 Vitamin D deficiency, unspecified | CPT/HCPCS: 99212 ==

== ENCOUNTER 2024-11-24 13:39 | Outpatient (AMB) | payer OTHER, SELFPAY ==
--- NOTE | 2024-11-24 14:26 | MHC.AMDMED ---
Intake Intake Visit Reasons: DM Color Card Maker Required: Yes Color Card Maker Language: Phlebotomy Specialist Name: Ollie [facility] [place] Accompanied by: Other Relationship Allergies seasonal Allergy (Intermediate, Uncoded 11/03/24 13:17) cough HPI Comprehensive Diabetes Asmnt Most Recent Diabetes Results: Hemoglobin A1c 7.1 % 07/11/19 Microalb/Creat Ratio 45.1 ug/mg cr (<30) H 10/20/23 Cholesterol 126 mg/dL (<200) 11/09/24 HDL Cholesterol 45 mg/dL (>40) 11/09/24 Triglycerides 98 mg/dL (<150) 11/09/24 Creatinine 0.62 mg/dL (0.5-1.4) 11/09/24 Blood Urea Nitrogen 17 mg/dL (9-16) H 11/09/24 Sodium 142 mmol/L (135-145) 11/09/24 Potassium 3.8 mmol/L (3.3-5.1) 11/09/24 Chloride 111 mmol/L (96-108) H 11/09/24 Carbon Dioxide 25 mmol/L (22-29) 11/09/24 Calcium 8.9 mg/dL (8.4-10.2) 11/09/24 AST 23 U/L (5-31) 11/09/24 ALT 30 U/L (0-31) 11/09/24 Total Protein 7.4 g/dL (6.5-8.0) 11/09/24 Albumin 3.5 g/dL (3.5-5.0) 11/09/24 [facility] Medical History (Updated 11/02/24 @ 13:25 by Breanna Walters NP) Type 2 diabetes mellitus Panic attack Anxiety Obesity due to excess calories Asthma REY (obstructive sleep apnea) Morbid obesity Vitamin D deficiency Obesity Dyslipidemia Hypertension Diabetic polyneuropathy associated with type 2 diabetes mellitus Diabetes type 2, uncontrolled Surgical History Abdominal pain History of carpal tunnel release S/P trigger finger release H/O foot surgery History of dilatation and curettage History of sleeve gastrectomy History of esophagogastroduodenoscopy (EGD) History of eyelid surgery Hx of tubal ligation Hx of colonoscopy Family History Father Type II diabetes mellitus Obesity Mother HTN (hypertension) Brother Cancer Social History Household Members: Spouse Housing: Apartment Do you presently have visiting nurse or other home services: Yes Alcohol intake: never Patient Tobacco Use Status: Former Tobacco user Tobacco use type: Cigarette e-Cigarette/Vaping Use: Never Used service: No Current occupational status: unemployed Current occupation: rt handed Assessment & Plan Assessment & Plan (1) Type 2 diabetes mellitus: Code(s): E11.9 - Type 2 diabetes mellitus without complications Plan: Pt at visit for reteaching for CeQue Simplicity Training Pt brought CeQue patch, elastic tape inserter, vial of mealtime insulin and change by stickers Patient's prescription reads take Instructed patient to wash your hands Demonstrated for patient how to fill syringe from vial, and insert, needle to fill patch Then remove air bubbles from patch, by viewing through clear window below blue cap To prime patch after air bubble has been removed proceed with 4 clicks Apply placed sticker, to patch, count forward 4 days Prepare site where you will place patch with either alcohol or soap and water, avoid waist band and belt line Do not insert through scar tissue, piercings and tattoos be sure to place patch at least 2 in from belly button. If you have excess body hair adhesive will attach better to clean shaven skin Instructed patient to be sure to rotate patch regularly Place patch in elastic tape inserter while holding elastic tape inserter with both hands use thumbs to push down on blue cap in on patch Push until you hear a click Instructed patient not to unlock green button until elastic tape inserter is against prepared site Squeeze at both ends a blue cap and carefully began to pull cap, this should also remove adhesive pad liner. Be cautious of exposed needle, check to make sure needle is not bent Please patch on your body, slide yellow safety and press green button down Press elastic tape inserter firmly for 10 seconds, remove elastic tape inserter by lifting it away To remove needle squeeze clear sides of filler shredder at the base Discard needle in sharps container Press down firmly on patch with palm of your hand for 10 seconds Instructed patient to administer 4 clicks before each meal Patient left visit with CeQue patch in place Instructed patient on how to administer mealtime insulin, instructed patient that each click is equal to 2 units of mealtime insulin Patient will follow-up with inclusion paraeducator as instructed Portions of this note were created using voice recognition software, please excuse any words or phrases that may have been misinterpreted. Patient Instructions: Follow-up in 1 week Coding Level of Care Code Est Pt Level 1 (91665) Diagnoses Type 2 diabetes mellitus E11.9
--- OUTSIDE RECORDS SUMMARY | 2024-11-24 17:04 | XMS_ITS ---
Author Name Maribel Vann NP Address [address] [place] [address] Phone [phone] [facility] Care Team Providers Care Ticket Broker Name Role Phone Maribel Vann Unavailable [phone] [facility] Unavailable [phone] [place], [facility] Unavailable [phone] PR/Al Ruiz [place] Unavailable Unavailable Unavailable [phone] Unavailable Unavailable [phone] [employer] Unavailable [phone] Pedro Mohamud Unavailable [phone] Radha Bran Unavailable Reason for Referral Not Available Allergies, adverse reactions, alerts No known allergies History of medication use Medication Class Instructions Start Date End Date Fluocinolone Acetonide Body 0.01 % Oil APPLY BOTTLE TOPICALLY TO THE AFFECTED AREA IN THE MORNING 2022-08-13 No Data Available B-D KURTIS 2ND GEN PEN NDL [id number] USE TO INJECT FOUR TIMES DAILY 2022-08-28 [...] Data Available 2023-06-03 No D aries Available VerslyTouch Verio Flex System w/Device Kit USE TO [...] time a day 2024-04-21 No Data Available [place] Nasal [place] 0.65 % Solution Nasal 2 sprays intranasally [...] mg Tab Take 1 tablet by mo uth daily 2023-12-04 No Data Available CALCIUM 600D [...] Use for CGM 2024-04-27 No Data Available Tylenol Extra Strength 500 m g Tab 2 tablet orally TID, PRN for pain 2024-11-24 No Data Available vitamin D3-vitamin K2 1,250-200 mcg capsule take one cap daily 2024-11-24 No Data Available Problem List Problem Status Onset Date Resolved Date Obstructive sleep apnea Active 2023-02-06 N/A Hypertension Active 2023-02-06 N/A MDD (major depressive disord er), recurrent episode, mild Active 2023-04-09 N/A Chronic left-sided headache Active 2024-04-21 N/A Morbid (severe) obesity due to excess calories Active 2023-02-03 N/A Urinary incontinence Active 2023-02-06 N/A Iron deficiency anemia Active 2023-02-06 N/A 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 ([place]2023 Morbid (severe) obesity due to excess caloriesBody mass index (BMI) 40.0-44.9, adultType 2 diabetes w unsp diabetic retinopathy w macular edemaMajor depressive disorder, recurrent, mildIron deficiency anemia, unspecifiedUnspecified urinary incontinenceUnspecified asthma, uncomplicatedObstructive sleep apnea (adult) (pediatric)2-part nondisp fx of surg nk of l humer, 7thDEssential (primary) hypertensionHistory of fallingDifficulty in walking, not elsewhere classified No Data Available [facility], ([place] 04/09/2023 No Data Available [facility] [place]2023 No Data Available [facility] [place]/09[place]2023 No Data Available [facility] [place]2023 No Data Available [facility] [place]2023 No Data Available [facility] [place]2023 Estab. patient 20-29min; 1 stable chronic or 2 minor; add add modifier 95 for video, modifier 93 for phone [facility], [place] 05/06/2023 Type 2 diabetes w [...] 95 for video, modifier 93 for phone [facility] [place] 05/06/2023 Estab. patient 20-29min; 1 stable chronic or 2 minor; add add modifier 95 for video, modifier 93 for phone [facility] [place] 05[place]/20[place] Estab. patient 20-29min; 1 stable chronic or 2 minor; add add modifier 95 for video, modifier 93 for phone [facility] [place] 05/06/2023 No Data Available [facility] [place] 06/15/2023 History of fallingDifficulty in walking, not elsewhere classified No Data Available [facility] ([place] 06/15/2023 No Data Available [facility], ([place]) 06/16/2023 History of fallingDifficulty in walking, not elsewhere classifiedPersonal history of (healed) traumatic fracture No Data Available [facility] 06/16/2023 No Data Available [facility] 06/16[place]2023 No Data Available [facility] 06[place]16[place]2023 No Data Available [facility] [place] 07/08/2023 Difficulty in walking, not elsewhere classifiedHistory of fallingPersonal history of (healed) traumatic fracture No Data Available [facility] 07[place]2023 Estab. patient 30-39min; chronic exacerbation, 2 stable chronic or 1 acute illness add add modifier 95 for video, (do not use for phone, instead use [id number]) [facility] [place] 07[place]15[place]2023 Morbid (severe) obesity due to excess [...] (do not use for phone, instead use 62732-34) [facility] [place] 07[place]15[place]20[place] Estab. patient 30-39min; chronic exacerbation, 2 stable chronic or 1 acute illness add add modifier 95 for video, (do not use for phone, instead use 21649-21) [facility] 07/15/2023 Estab. patient 30-39min; chronic exacerbation, 2 stable chronic or 1 acute illness add add modifier 95 for video, (do not use for phone, instead use 15042-15) [facility] 07/15/2023 Estab. patient 30-39min; chronic exacerbation, 2 stable chronic or 1 acute illness add add modifier 95 for video, (do not use for phone, instead use 78350-98) [facility] 07/15/2023 No Data Available [facility] [place] 08/14/2023 Morbid (severe) obesity due to excess caloriesBariatric surgery statusUnspecified asthma, uncomplicatedHistory of fallingDifficulty in walking, not elsewhere classifiedPersonal history of (healed) traumatic fracture No Data Available [facility] 08/14/2023 No Data Available [facility] [place] 09/09/2023 Urinary tract infection, sit e not specified No Data Available [facility] 09/10/2023 Urinary tract infection, sit e not specifiedHistory of fallingDifficulty in walking, not elsewhere classifiedPersonal history of (healed) traumatic fracture No Data Available [facility] [place] 09/10/2023 Estab. patient 30-39min; chronic exacerbation, 2 stable chronic or 1 acute illness add add modifier 95 for video, (do not use for phone, instead use 54666-46) [facility] [place] 09/18/2023 Urinary tract infection, sit e not [...] surg nk of melecio luna, 7thDEssential (primary) hypertensionMajor depressive disorder, recurrent, mildRheumatoid arthritis without rheumatoid factor, unspecified site Estab. patient 30-39min; chronic exacerbation, 2 stable chronic or 1 acute illness add add modifier 95 for video, (do not use for phone, instead use 46279-23) [facility] [place] 09/18/2023 Estab. patient 30-39min; chronic exacerbation, 2 stable chronic or 1 acute illness add add modifier 95 for video, (do not use for phone, instead use 92236-94) [facility] 09[place]18[place] Estab. patient 30-39min; chronic exacerbation, 2 stable chronic or 1 acute illness add add modifier 95 for video, (do not use for phone, instead use 15370-80) [facility] 09[place]18[place]20[place] Estab. patient 30-39min; chronic exacerbation, 2 stable chronic or 1 acute illness add add modifier 95 for video, (do not use for phone, instead use 52639-89) [facility] 09[place]18[place]20[place] Estab. patient 30-39min; chronic exacerbation, 2 stable chronic or 1 acute illness add add modifier 95 for video, (do not use for phone, instead use 67873-48) [facility] [place] 09/18/2023 Estab. patient 30-39min; chronic exacerbation, 2 stable chronic or 1 acute illness add add modifier 95 for video, (do not use for phone, instead use 04753-47) [facility] [place] 09/18/2023 Estab. patient 30-39min; chronic exacerbation, 2 stable chronic or 1 acute illness add add modifier 95 for video, (do not use for phone, instead use 55681-30) [facility] 09[place]18[place]20[place] Estab. patient 30-39min; chronic exacerbation, 2 stable chronic or 1 acute illness add add modifier 95 for video, (do not use for phone, instead use 69902-84) [facility] 09[place]18[place]2023 No Data Available [facility] 04[place]21[place]2024 Morbid (severe) obesity due to excess caloriesBariatric surgery statusType 2 diabetes w unsp diabetic retinopathy w macular edemaUnspecified urinary incontinenceUnspecified asthma, uncomplicatedObstructive sleep apnea (adult) (pediatric)Essential (primary) hypertensionBody mass index (BMI) 40.0-44.9, adultMajor depressive disorder, recurrent, mildOther problems related to medical facilities and other health careHeadache, unspecifiedOther chronic pain No Data Available [facility] No Data Available [facility] No Data Available [facility] 04/21[place]20[place] No Data Available [facility] [place] No Data Available [facility] [place]20[place] No Data Available [facility] [place] 04[place]20[place] No Data Available [facility] [place] 05/03/2024 Type 2 diabetes w unsp diabe tic retinopathy w macular edemaAllergic contact dermatitis due to plants, except foodEncounter for other specified aftercareOther problems related to medical facilities and other health careLong term (current) use of insulin No Data Available [facility] [place] 05/03/2024 No Data Available [facility] [place] 08[place]2024 Flu due to unidentified influenza virus w oth resp manifestPersons encountering health services in other specified circumstancesOther problems related to medical facilities and other health care No Data Available [facility] [place] 08/26/2024 No Data Available [facility] [place] 08/[place]/20[place] Estab. patient 10-29min; 1 minor problem; add add modifier 95 for video, modifier 93 for phone [facility] [place] 09[place]22/2024 Type 2 diabetes w unsp diabe tic retinopathy w macular edemaUnspecified asthma, uncomplicatedObstructive sleep apnea (adult) (pediatric)Body mass index (BMI) 40.0-44.9, adultOther problems related to medical facilities and other health care Estab. patient 10-29min; 1 minor problem; add add modifier 95 for video, modifier 93 for phone [facility] [place] 09/22/2024 Estab. patient 10-29min; 1 minor problem; add add modifier 95 for video, modifier 93 for phone [facility] [place] 09/22/2024 Estab. patient 10-29min; 1 minor problem; add add modifier 95 for video, modifier 93 for phone [facility] [place] 09/22/2024 Estab. patient 10-29min; 1 minor problem; add add modifier 95 for video, modifier 93 for phone [facility] [place] 10/21/2024 Type 2 diabetes w unsp diabe tic retinopathy w macular edemaOther female genital prolapseUnspecified urinary incontinenceOther problems related to medical facilities and other health care Estab. patient 10-29min; 1 minor problem; add add modifier 95 for video, modifier 93 for phone [facility] [place] Estab. patient 10-29min; 1 minor problem; add add modifier 95 for video, modifier 93 for phone [facility] [place]/24/2024 Type 2 diabetes w unsp diabe tic retinopathy w macular edemaUnspecified asthma, uncomplicatedRheumatoid arthritis without rheumatoid factor, unspecified siteOther specified abnormal findings of blood chemistryOther problems related to medical facilities and other [...] kgBody Mass Index (BMI) - 43.16 kg/m2 2024-11-24 12:36:51 Weight - 107.05 kgBo dy Mass Index (BMI) - 43.16 kg/m2 Social History Social History Social History Observation Description Effec tive Time Current Smoking Status Former smoker 2024-10-30 7 Sex Female History of Procedures Procedures Service Procedure code Service date Servicing provider Phone# No Data Available [id number] 2023-04-09 No Data Available No Data Available [...] 95 for video, modifier 93 for phone [id number] 2023-05-06 No Data Available No Data Availa [...] No Data Carli ilable No Data Available [id number] 2023-06-15 No Data Available No Data Available Medication List Documented (1159F) 1159F 2023-06-15 No Data Available No Data Carli ilable No Data Available [id number] 2023-06-16 No Data Available No Data Available Medication List Documented (1159F) 1159F 2023-06-16 No Data Available No Data Carli ilable Pain Assessment - Pain Documented on a Pain Scale (1125F) 1125F 2023-06-16 No Data Available No Data Carli ilable BMI obtained (3008F) 3008F 2023-06-16 No Data Availab le No Data Available No Data Available [id number] 2023-07-08 No Data Available No Data Available Medication List Documented (1159F) 1159F 2023-07-08 No Data Available No Data Carli ilable Estab. patient 30-39min; chronic exacerbation, 2 stable chronic or 1 acute illness add add modifier 95 for video, (do not use for phone, instead use 21181-07) [id number] 2023-07-15 No Data Available No Data Availa [...] No Data Carli ilable No Data Available [id number] 2023-08-14 No Data Available No Data Available Medication List Documented (1159F) 1159F 2023-08-14 No Data Available No Data Carli ilable No Data Available [id number] 2023-09-09 No Data Available No Data Available No Data Available [id number] 2023-09-10 No Data Available No Data Available Medication List Documented (1159F) 1159F 2023-09-10 No Data Available No Data Carli ilable Estab. patient 30-39min; chronic exacerbation, 2 stable chronic or 1 acute illness add add modifier 95 for video, (do not use for phone, instead use 61257-79) [id number] 2023-09-18 No Data Available No Data Availa [...] No Data Avail able No Data Available [id number] 2024-04-21 No Data Available No Data Available [...] le No Data Available No Data Available [id number] 2024-05-03 No Data Available No Data Available Medication List Documented (1159F) 1159F 2024-05-03 No Data Available No Data Carli ilable No Data Available 2024-08-26 No Data Available No Data Available [...] 95 for video, modifier 93 for phone [id number] 2024-09-22 No Data Available No Data Availa [...] 95 for video, modifier 93 for phone [id number] 2024-10-21 No Data Available No Data Availa ble Medication List Documented (1159F) 1159F 2024-10-21 No Data Available No Data Carli ilable Estab. patient 10-29min; 1 minor problem; add add modifier 95 for video, modifier 93 for phone [id number] 2024-11-24 No Data Available No Data Availa ble [...] hospitalization: Call [facility] if symptoms of illness develop.History of recent [...] to medical facilities and other health care 2024-11-24 12:36:51 Type 2 diabetes long itus with both eyes affected by retinopathy and macular edema, without long-term current use of insulinAsthmaSeronegative rheumatoid arthritisLow vitamin D levelOther problems related to medical facilities and other [...] units TID AC meals and FU with wood fence erector in February,Wears rafaela paduses inhaler Flovent BIDHas [...] units TID AC meals and FU with wood fence erector in February,Wears rafaela padNeeds chux pads, XL pull-ups, gloves XLuses inhaler Flovent BIDHas CPAP using nightlyContinue lovenox as directedAdvancing home PTencouraged UE activity as toleratedHas not been taking BP medication since surgery 2 months ago on broken footApril 2022 had a bad fall on steps at entrance to home. Fractured L foot, L?knee, L shoulderStill unable to walkUsing wheelchairNow [facility]Decl[facility] productsEscitalopramWill think about whether she wants a therapist 2023-06-15 13:39:58 Phone (patient, pare nt, or guardian); 5-10 minutes of medical discussion (no modifier 95)Continue to see PCP. Follow-up with [facility] as needed for any acute or disease education needs that may arise 23/03.November 2022 had a bad fall on steps at entrance to home. Fractured L foot, L?knee, L shoulderStill unable to walkUsing /16/2023er son, can only walk very short distances [...] unable to walkUsing wheelchairNow [facility]er son, can only walk very short [...] modifier 95)Continue to see PCP. Follow-up with [facility] as needed for any acute or disease education needs that may arise 23/03.November 2022 had a bad fall on steps at entrance to home. Fractured L lower leg, L shoulderStill unable to walk07/08/2023alled pt, discussed approval of her scooter. Informed her we need to schedule home visit/eval, and we need videocall. Tablet needs a road design engineer, will send and schedule videocall for next [...] unable to walkUsing wheelchairNow having [facility]23er son, can only walk very short distances w a walker, otherwise uses WC. In home may use walker or WC.Pt requesting electric WC.Cont using caution w walker or WC, will FU re possible need for more PT.06/16/2023ot use self-propelled WC due to having injured [...] to PT but after she returns from [place] [facility].Can start in October. 2023-08-14 12:38:06 Phone (patient, [...] unable to walkUsing wheelchairNow [facility]er son, can only walk very short distances w a walker, otherwise uses WC. In home may use walker or WC.Pt requesting electric WC.Cont using caution w walker or WC, will FU re possible need for more PT.06/16/2023ot use self-propelled WC due to having injured left shoulder. unable to push a WC for her.In need of an electric WC or a scooter.In the home can barely get around w a walker but with pain and does not always tolerate.07/08/2023alled pt, discussed approval of her scooter. Informed her we need to schedule home visit/eval, and we need videocall. Tablet needs a road design engineer, will send and schedule videocall for next [...] 09/10/23.UPDATE 09/10/2023t has not yet gone to forklift picker prescription. Feels about the same. Education [...] documented (1126F)Continue to see PCP. Follow-up with [facility] as needed for any acute or disease education needs that may arise.09/09/23: Malodorous dark urine, Left flank painWill start nitrofurantoin.Increase water and rest.Tylenol.F/U with [facility] 09/10/23.UPDATE 4Pt has not yet gone to forklift picker prescription. Feels about the same. Education [...] unable to walkUsing wheelchairNow having [facility]3Per son, can only walk very short [...] and we need videocall. Tablet needs a road design engineer, will send and schedule videocall for next [...] units TID AC meals and FU with wood fence erector Reports stableWears rafaela padNeeds chux pads, XL pull-ups, gloves XLuses inhaler Flovent BIDHas CPAP using nightlyContinue lovenox as directedAdvancing home PTencouraged UE activity as toleratedHas not been taking BP medication aftersurgery on broken footUPDATE 4Reports compliance nowApril 2022 had a bad fall on steps at entrance to home. Fractured L lower leg, L shoulderStill unable to walkUsing wheelchairNow having [facility]er son, can only walk very short [...] and we need videocall. Tablet needs a road design engineer, will send and schedule videocall for next [...] 09/10/23.UPDATE 09/10/2023t has not yet gone to forklift picker prescription. Feels about the same. Education [...] individual diagnosis for contingency plan.previously diagnosed 01/20/23 [facility] painstable 2024-04-21 09:19:41 Phone (patient, pare [...] units TID AC meals and FU with wood fence erector Reports stableWears rafaela padNeeds chux pads, XL [...] modifier 95)Continue to see PCP. [facility] acute or disease [...] thinking about going to the ER? ResolvedNext Tran scheduled appt/call: Patient education provided: Krysta bailey call us if similar situation arises in future. Avoid this plant in the futureHow else can we help? Refill (See DM)Member trained on use of ? Red Button? for urgent needs and provided with Tran phone # as an alternative method to [...] units TID AC meals and FU with wood fence erector Reports stable09/22/24feels well, denies hypo/hyperglycemic episodescontinues to use CGM and insulin pump A1c 6.9 05/24/24uses inhaler Flovent BIDuses nebulizer 09/22/24denies SOBHas CPAP using nightlyCOPD CONTINGENCY PLANLast updated: 09/22/2024[facility] to call for the following symptoms: Increased [...] for phoneContinue to see PCP. Follow-up with [facility] as needed for any acute or disease education needs that may arise 23/03.Wears rafaela padNeeds -Bladder pads (female) 5 per 24 hours-chux pads 3 per 24 hours 10/21/24reports incontinence supplies ordered 2 months ago by [facility] cc, but has not received yet. Is [...] continues recommend decreasing lantusDIABETES CONTINGENCY PLANLast updated: 10/21/2024[facility] to call for the following symptoms: Blood sugar <70??/ Blood sugar >300??Planned intervention: for BS <70 Decrease long-acting insulin to <20> units/ for bs >300 (sliding scare as needed) Encourage adequate water intake/ Go for a walk 2024-11-24 12:36:51 Estab. patient 10-29 min; 1 minor problem; add add modifier 95 for video, modifier 93 for phoneContinue to see PCP. Follow-up with [facility] as needed for any acute or disease education needs that may arise 23/03.Random glucose 150-200's routinelyhas insulin pump and uses injections lispro/lantuswears glassesendocrinologist 11/24/24feels well, denies hyperglycemic episodescontinues to use CGM and insulin pump+hypoglycemia x >3x/monthreports feeling dizzy, diaphoretic and shaky when BS <100has had 3 readings in the 60's in the past monthdoes drink juice to help increase sugars A1c 6.9 05/24/24needs CGM sensor refill, refill sentPLAN: if hypoglycemia continues recommend decreasing lantususes inhaler Flovent BIDuses nebulizer 11/24/24denies SOBpreviously diagnosed 01/20/23 [facility]rman[facility] painstablewill f/u with Rheum 11/2024Vitamin D 25-OH Total 19.7 (L) >30 ng/mL start vitamin d3 supplementsPAIN CONTINGENCY PLANLast updated: 11/24/2024DELETE ME!!!Why was the member in the hospital or ER most recently? Why are they most likely to go back?Member to call for the following symptoms: Decreased mobility/ Increased pain/ StiffnessPlanned intervention: Encourage extra fluid intake / Tylenol 1,000mg q6h/ Lidoderm patch 4% to affected area/ Voltaren gel to affected area/ Prednisone 50mg daily for 5 days Health Concerns Date Concern 2024-11-24 Visit completed via audio by telephone. Patient/Guardian agreed to visit via telehealth.Time spent in visit: 2024-11-24 Most recent hospital stay(s) or ER visit(s) and precipitating factors: none in the past month 2024-11-24 HEDIS review: 2024-11-24 will f/u Rheumatolog y 2024-11-24 will f/u PCP 12/20242024-11-24 TSH reflex Free T4 3 .69
--- OUTSIDE RECORDS SUMMARY | 2024-11-24 17:04 | XMS_ITS | Encounter Summary ---
Author Organization [employer] Address [address] [facility] 7t [place] [address] Care Team Providers Care Crusher And Binder Operator Name Role Phone Radha Bran MD Primary Care Provider + Reason for Visit * Reason Onset Date Comments Results 11/16/2024 Encounter Details Date Type Department Care Team ([facility] st Contact Info) Description 11/16/2024 Telephone [facility] [address] [place] [address] Radha Bran MD [address] [place] [address] Results Social History Tobacco Use Types Packs/Day [...] encounter Miscellaneous Notes * Telephone Encounter - Ciarra Wallace RN - 11/16/2024 1:54 PM EDT Call placed to patient. Advised her that her RADHA was mildly positive, which could be indicative of an autoimmune disease however can be positive in the general population. Advised that Dr. Branreferred her to a planned giving officer in consideration of her symptoms, fatigue. All questions answered.Patient verbalizes understanding and agreement with plan of care at this [place] [id number] ----- Message from Malia Hall MD sent at 11/16/2024 1:47 PM EDT ----- Please let patient know the other part of her labs came back one of them RADHA is mildly positive, this is a marker used for autoimmune disease like lupus, the fact that this mildly positive does not mean that she has any of these conditions because it is also positive in general population, but I decided in light of her fatigue to refer her to planned giving officer which is a specialist documented in this encounter Plan of Treatment Upcoming Encounters Date Type Department Care Team (Late st Contact Info) Description 12/15/2024 10:30 AM EDT Office Visit [facility] [address] [place] [address] Radha Bran MD [address] [place] [address] documented as of this encounter Visit Diagnoses Not on filedocumented in this encounter Additional Health Concerns Assessment Noted Time PHQ-9 Depression Total Score: 13 024 10:37 AM EST documented as of this encounter Care Teams Crusher And Binder Operator Relationship Specialty Start Date End Date Radha Bran MD [address] [place] [phone] PCP - General Family Medicine 10/16/20 documented as of this encounter
--- OUTSIDE RECORDS SUMMARY | 2024-11-24 17:04 | XMS_ITS | Encounter Summary ---
Author Organization [employer] Address [address] [facility] 7t [place] [address] Care Team Providers Care Type Proof Reproducer Name Role Phone Radha Bran MD Primary Care Provider + Encounter Details Date Type Department Care Team ([facility] st Contact Info) Description 08/25/2024 Orders Only [facility] [address] [place] [address] Radha Bran MD [address] [place] [address] Social History Tobacco Use Types Packs/Day Years [...] Description 12/15/2024 10:30 AM EDT Office Visit [facility] MED[facility]INE [address] [place] [phone] Radha Bran MD [address] [place] [phone] documented as of this encounter Visit Diagnoses Not on filedocumented in this encounter Additional Health Concerns Assessment Noted Time PHQ-9 Depression Total Score: 13 024 10:37 AM EST documented as of this encounter Care Teams Type Proof Reproducer Relationship Specialty Start Date End Date Radha Bran MD [address] [place] [phone] PCP - General Family Medicine 10/16/20 documented as of this encounter
--- OUTSIDE RECORDS SUMMARY | 2024-11-24 17:04 | XMS_ITS | Encounter Summary ---
Author Organization [employer] Address [address] [facility] 7t [place] [address] Care Team Providers Care Dry Folder Cloth Name Role Phone Radha Bran MD Primary [...] t he electric, gas, oil or water [employer] threatened to shut off services in your [...] AM EDT Office Visit [facility] [address] [place], [place] [phone] Radha Bran MD [address] [place] [address] documented as of this encounter Procedures Procedure Name Priority Date/Time Associated Diagnosis Comments GLUCOSE, WHOLE BLOOD Routine 11/02/2024 1:25 PM EST documented in this encounter Results * (ABNORMAL) Glucose, Whole Blood (11/02/2024 1:25 PM EST) Glucose, Whole Blood 145(H) 60 - 115 mg/dL [facility] Comment:METER #: [id number] Testing performed in the Endocrinology Department [address], [address], [facility]. 11/02/2024 1:25 PM EST 11/02/2024 1:30 PM EST us Generic External Data Provider LAB BLOOD ORDERAB LES Final Result [facility] [address] [place] [phone] [phone] documented in this encounter Visit Diagnoses Not on filedocumented in this encounter Additional Health Concerns Assessment Noted Time PHQ-9 Depression Total Score: 13 10/27/ 024 10:37 AM EST documented as of this encounter Care Teams Dry Folder Cloth Relationship Specialty Start Date End Date Radha Bran MD [address] [place] [phone] PCP - General Family Medicine 10/16/20 documented as of this encounter
--- OUTSIDE RECORDS SUMMARY | 2024-11-24 17:04 | XMS_ITS | Encounter Summary ---
Author Organization [employer] Address [address] [facility] 7t [place] [address] Care Team Providers Care Print Cutter Name Role Phone Radha Bran MD Primary Care Provider + Reason for Referral * Consultation (Routine) - Authorized Specialty Diagnoses / Procedures Referred By Contac t Referred To Contact Rheumatology Diagnoses Positive RADHA (antinuclear antibody) Fatigue, unspecified type Malia Franklin MD [address] [place] [address] Phone: tel: fax: [facility] [address] Phone: tel: fax: Referral ID Status Reason Start Date Expiration Date Visits Requested Visits Authorized [id number] Authorized Specialty Services Required 11/16/2024 11/16/2025 1 1 Encounter Details Date Type Department Care Team (Late st Contact Info) Description 11/16/2024 Orders Only [facility] [address] [place], [place] [phone] Malia Franklin MD [address] [place], [place] [phone] Positive RADHA (antinuclear antibody) (Primary Dx); Fatigue, unspecified type Social History Tobacco Use Types Packs/Day Years [...] t he electric, gas, oil or water [employer] threatened to shut off services in your [...] Description 12/15/2024 10:30 AM EDT Office Visit [facility] [address] [place] [address] Radha Bran MD [address] [place] [address] Scheduled Referrals Name Type Priority Associated Diagnoses Orde r Schedule Referral to Rheumatology Outpatient Referral Routine Positive RADHA (antinuclear antibody) Fatigue, unspecified type Expected: 11/16/2024 (Approximate), Expires: 11/16/2025 documented as of this encounter Visit Diagnoses Diagnosis Positive RADHA (antinuclear antibody)- Primary Other and unspecified nonspecific immunological findings Fatigue, unspecified type documented in this encounter Additional Health Concerns Assessment Noted Time PHQ-9 Depression Total Score: 13 024 10:37 AM EST documented as of this encounter Care Teams Print Cutter Relationship Specialty Start Date End Date Radha Bran MD [address] [place] [phone] PCP - General Family Medicine 10/16/20 documented as of this encounter
--- OUTSIDE RECORDS SUMMARY | 2024-11-24 17:04 | XMS_ITS | Encounter Summary ---
Author Organization [employer] Address [address] [facility] 7t [place] [address] Care Team Providers Care Smokehouse Worker Name Role Phone Radha Bran MD [...] t he electric, gas, oil or water [employer] threatened to shut off services in your [...] Description 12/15/2024 10:30 AM EDT Office Visit [facility] [address] [place] [address] Radha Bran MD [address] [place] [address] documented as of this encounter Procedures Procedure Name Priority Date/Time Associated Diagnosis Comments PROTEIN CREATININE RATIO, URINE Routine 11/09/2024 8:02 AM EDT UREA NITROGEN (BUN) Routine 11/09/2024 8 :00 AM EDT documented in this encounter Results * (ABNORMAL) Protein Creatinine Ratio, Urine (11/09/2024 8:02 AM EDT) Creatinine, Urine 265.18 mg/dL [facility] Protein, Total, Random Urine 61(H) <12 mg/dL [facility] Protein/Creati nine Ratio, Ur 0.23(H) <0.2 [facility] Comment:The spot urine prote in:creatinine ratio may increase to 0.3during normal . 11/09/2024 8:02 AM EDT 11/09/2024 8:20 AM EDT us Generic External Data Provider LAB URINE ORDERAB LES Final Result [facility] [address] [place] [address] [phone] * (ABNORMAL) BUN (Blood Urea Nitrogen) (11/09/2024 8:00 AM EDT) Urea Nitrogen (BUN) 18(H) 9 - 16 mg/dL [facility] 11/09/2024 8:00 AM EDT 11/09/2024 8:11 AM EDT us Generic External Data Provider LAB BLOOD ORDERAB LES Final Result Performing Organization Address City/State/[facility] Co de Phone Number [facility] [address] [place] [phone] [phone] documented in this encounter Visit Diagnoses Not on filedocumented in this encounter Additional Health Concerns Assessment Noted Time PHQ-9 Depression Total Score: 13 10/27/ 024 10:37 AM EST documented as of this encounter Care Teams Smokehouse Worker Relationship Specialty Start Date End Date Radha Bran MD [address] [place] [phone] PCP - General Family Medicine 10/16/20 documented as of this encounter
--- OUTSIDE RECORDS SUMMARY | 2024-11-24 17:05 | XMS_ITS | Encounter Summary ---
Author Organization [employer] Address [address] [place] [address] 7 [place] [address] Care Team Providers Care Greens Keeper Name Role Phone Radha Bran MD Primary Care Provider + Encounter Details Date Type Department Care Team ([facility] Contact Info) Description 02/09/2023 [facility] Information Management [address] [place] [address] Radha Bran MD [address] [place] [address] Social History Tobacco Use Types Packs/Day Years [...] Upcoming Encounters Date Type Department Care Team ([facility] Contact Info) Description 12/15/2024 10:30 AM EDT Office Visit [facility] [address] [place] [address] Radha Bran MD [address] [place] [address] documented as of this encounter Visit Diagnoses Not on filedocumented in this encounter Care Teams Greens Keeper Relationship Specialty Start Date End Date Radha Bran MD [address] [place] [address] PCP - General Family Medicine 10/16/20 documented as of this encounter
--- OUTSIDE RECORDS SUMMARY | 2024-11-24 17:05 | XMS_ITS | Encounter Summary ---
Author Organization [employer] Address [address] [facility] 7 [place] [address] Care Team Providers Care Enamel Shader Name Role Phone Radha Bran MD Primary Care Provider + Reason for Visit * Reason Onset Date Comments Chart Prep 11/02/2024 Encounter Details Date Type Department Care Team ([facility] st Contact Info) Description 11/02/2024 Telephone [facility] [address] [place] [address] Radha Bran MD [address] [place] [address] Chart Prep Social History Tobacco Use Types [...] Description 12/15/2024 10:30 AM EDT Office Visit [facility] [address] [place] [address] Radha Bran MD [address] [place] [address] documented as of this encounter Visit Diagnoses Not on filedocumented in this encounter Additional Health Concerns Assessment Noted Time PHQ-9 Depression Total Score: 13 024 10:37 AM EST documented as of this encounter Care Teams Enamel Shader Relationship Specialty Start Date End Date Radha Bran MD [address] [place] [phone] PCP - General Family Medicine 10/16/20 documented as of this encounter
--- OUTSIDE RECORDS SUMMARY | 2024-11-24 17:05 | XMS_ITS | Encounter Summary ---
Author Organization [employer] Address [address] [place] [address] 7t [place] [address] Care Team Providers Care Senior Compensation Analyst Name Role Phone Radha Bran MD Primary Care Provider + Reason for Referral * Consultation (Routine) - Authorized Specialty Diagnoses / Procedures Referred By Contac t Referred To Contact Cardiology Diagnoses Palpitation SOB (shortness of breath) on exertion Malia Franklin MD [address] [place] [address] Phone: tel: fax: [facility] Referral ID Status Reason Start Date Expiration Date Visits Requested Visits Authorized [id number] Authorized Specialty Services Required 11/03/2024 11/03/2025 1 1 Encounter Details Date Type Department Care Team (Late st Contact Info) Description 11/03/2024 2:45 PM EST Office Visit [facility] [address] [place], [place] [phone] Malia Franklin MD [address], [place] [phone] Palpitation (Primary Dx); SOB (shortness of breath) [...] the first floor, has a commode. Has COMBATANT DIVER QUALIFIED Patient Active Problem List Diagnosis Actinic keratosis [...] COVID-19 Cough in adult Lesion of right [place] kidney Closed 2-part nondisplaced fracture of surgical [...] DAILY Blood Pressure Monitoring (Blood Pressure Cuff) [facility] blood pressure test kit- large cuff USE [...] AM EDT Office Visit [facility] [address] [place] [phone] Radha Bran MD [address] [place] [address] Scheduled Referrals Name Type Priority Associated Diagnoses [...] 11/09/2024 8: 00 AM EDT Chronic fatigue RADHA SCREEN, IFA, W/REFL TITER AND PATTERN Routine 11/09/2024 8:00 AM EDT Chronic fatigue FERRITIN Routine 11/09/2024 8:00 AM EDT Chronic fatigue LIPID PANEL, STANDARD Routine 11/09/2024 8:00 AM EDT Chronic fatigue COMPREHENSIVE METABOLIC PANEL Routine 11/09/2024 8:00 AM EDT Chronic fatigue documented in this encounter Results * Ferritin (11/09/2024 8:00 AM EDT) Ferritin 36 10 - 250 ng/mL [facility] Blood Venous blood specimen / Unknown 11/09/2024 8:00 AM EDT 11/09/2024 8:11 AM EDT us Malia Hall MD LAB BLOOD ORDERABLES Final Result Performing Organization Address [facility] Co de Phone Number [facility] [address] [place] [phone] * Iron And Total Iron Binding Capacity (11/09/2024 8:00 AM EDT) Pathologist [facility] Iron 51 30 - 160 mcg/dL [facility] Total Iron Binding Capacity 267 228 - 428 mcg/dL [facility] Percent Iron Saturation 19 15 - 50 % [facility] Unsaturated Iron Binding 216 ug/dL [facility] Blood Venous blood specimen / Unknown 11/09/2024 8:00 AM EDT 11/09/2024 8:11 AM EDT us Malia Hall MD LAB BLOOD ORDERABLES Final Result Performing Organization Address City/[facility]/ZIP Co de Phone Number [facility] [address] [place] [phone] * Vitamin B12/Folate, Serum Panel (11/09/2024 8:00 AM EDT) Vitamin B12 525 200 - 900 pg/mL [facility] Comment:NORMAL 200-900 PG/ML INDETERMINATE 160-199 PG/ML DEFICIENT < 160 PG/ML Folate 9.0 > or = 4.0 ng/mL [facility] Comment:Reference Values:> o r = 4.0 ng/mL< 4.0 ng/mL suggests folate deficiency Methotrexate, aminopterin and folinic acid(leucovorin) are chemotherapeutic agents whose molecularstructures are similar to folate; therefore, the Architectfolate assay cannot be used for patients using these drugs. Blood Venous blood specimen / Unknown 11/09/2024 8:00 AM EDT 11/09/2024 8:11 AM EDT Malia Hall MD LAB BLOOD ORDERABLES Final Result [facility] [address] [place] [address] [phone] * (ABNORMAL) RADHA Screen,IFA, with Reflex to Titer and Pattern (11/09/2024 8:00 AM EDT) Anti Nuclear Antibody Screen POSITIVE (A) NEGATIVE [facility] Comment:RADHA IFA is a first l ine screen for detecting thepresence of up to approximately 150 autoantibodies invarious autoimmune diseases. A positive RADHA IFA resultis suggestive of autoimmune disease and reflexes totiter and pattern. Further laboratory testing may beconsidered if clinically indicated.For additional information, please refer tohttp://education.[employer]/faq/IWK510(This link is being provided for informational/educational purposes only.) RADHA Titer 1:40(A) titer [facility] Comment:A low level RADHA tite r may be present in pre-clinicalautoimmune diseases and normal individuals. Reference Range <1:40 Negative 1:40-1:80 Low Antibody Level >1:80 Elevated Antibody Level RADHA Pattern Nuclear, Speckled (A) [facility] Comment:Speckled pattern is associated with mixed connectivetissue disease (MCTD), systemic lupus erythematosus(SLE), Sjogren's syndrome, dermatomyositis, andsystemic sclerosis/polymyositis overlap.AC-2,4,5,29: SpeckledInternational Consensus on RADHA Patterns(https://doi.org/10.1515/sroc-8836-1029)THIS TEST WAS PERFORMED AT:[employer] [place] [phone] WEINSTEIN MD RADHA TITER 2 (REF LAB) [facility] 2 [facility] RAD[facility] TITER 3 [facility] RADHA PATTERN 3 [facility] Blood Venous blood specimen / Unknown 11/09/2024 8:00 AM EDT 11/09/2024 8:11 AM EDT us Malia Hall MD LAB BLOOD ORDERABLES Final Result Performing Organization Address [facility] Co de Phone Number [facility] [address] [place] [phone] * (ABNORMAL) Sed Rate by Modified Ernieergren (11/09/2024 8:00 AM EDT) Pathologist [facility] Erythrocyte Sedimentation Rate 27(H) 0 - 20 MM/HR [facility] Comment:Patients with polycy themia and many hemoglobin abnormalitiesmay have depressed sed rates whereas patients with anemiamay have elevated sed rates. Blood Venous blood specimen / Unknown 11/09/2024 8:00 AM EDT 11/09/2024 8:11 AM EDT us Malia Hall MD LAB BLOOD ORDERABLES Final Result Performing Organization Address [facility] Co de Phone Number [facility] [address] [place] [phone] * Cyclic Citrullinated Peptide (CCP) Antibody (IgG) (11/09/2024 8:00 AM EDT) Pathologist [facility] Cyclic Citrullinated Peptide <16 UNITS [facility] Comment:Reference RangeNegat maggie: <20Weak Positive: 20-39Moderate Positive: 40-59Strong Positive: >59THIS TEST WAS PERFORMED AT:[employer] [address] [phone] WEINSTEIN MD Blood Venous blood specimen / Unknown 11/09/2024 8:00 AM EDT 11/09/2024 8:11 AM EDT us Malia Hall MD LAB BLOOD ORDERABLES Final Result Performing Organization Address [facility]/ZIP Co de Phone Number [facility] [address] [place] [phone] * (ABNORMAL) C-reactive Protein (11/09/2024 8:00 AM EDT) C Reactive Protein 0.85(H) < or = 0.50 mg/dL [facility] Blood Venous blood specimen / Unknown 11/09/2024 8:00 AM EDT 11/09/2024 8:11 AM EDT us Malia Hall MD LAB BLOOD ORDERABLES Final Result Performing Organization Address [facility] de Phone Number [facility] [address] [place] [phone] * TSH with Reflex to Free T4 (11/09/2024 8:00 AM EDT) TSH reflex Free T4 3.69 0.32 - 4.0 uIU/mL [facility] Blood Venous blood specimen / Unknown 11/09/2024 8:00 AM EDT 11/09/2024 8:11 AM EDT us Malia Hall MD LAB BLOOD ORDERABLES Final Result Performing Organization Address [facility] Co de Phone Number [facility] [address] [place] [phone] * (ABNORMAL) Vitamin D, 25-Hydroxy, Total, Immunoassay (11/09/2024 8:00 AM EDT) Vitamin D 25-OH Total 19.7(L) >30 ng/mL [facility] Comment: Health Based Reference Values*< 20 ??ng/mL ??[id number] ng/mL ??Insufficient> 30 ??ng/mL ??Sufficient*Taras SUAZO. N [...] Hall MD LAB BLOOD ORDERABLES Final Result [facility] [address] [place] [phone] * Lipid Panel, Standard (11/09/2024 8:00 AM EDT) Triglycerides 98 <150 mg/dL [facility] Comment:Desirable Triglyceri de: less than 150 mg/dLBorderline High Triglyceride 150-199 mg/dLHigh Triglyceride: 200-499 mg/dLVery High Triglyceride: greater than or equal to 5OO mg/dL Cholesterol 126 <200 mg/dL [facility] Comment:Desirable Cholestero l: less than 200 mg/dLBorderline High Cholesterol: 200-239 mg/dLHigh Cholesterol: greater than 239 mg/dL LDL Cholesterol Calculated 62 <100 mg/dL [facility] Comment:Desirable LDL: less than 100 mg/dLNear Optimal/Above Optimal LDL: 110- 129 mg/dLBorderline High LDL: 130-159 mg/dLHigh LDL: 160-189 mg/dLVery High LDL: greater than or equal to 190 mg/dL HDL Cholesterol 45 >40 mg/dL [facility] Comment:Desirable HDL: great er than 40 mg/dL Note: This HDL assay may give artificially low results in patients with liver disease. Blood Venous blood specimen / Unknown 11/09/2024 8:00 AM EDT 11/09/2024 8:11 AM EDT us Malia Hall MD LAB BLOOD ORDERABLES Final Result Performing Organization Address [facility] Co de Phone Number [facility] [address] [place] [phone] * Hepatitis C Antibody with Reflex to HCV, RNA, Quantitative, Real-Time PCR (11/09/2024 8:00 AM EDT) Hepatitis C Antibody Nonreactive Nonreactive [facility] Comment:Antibodies to HCV no t detected; does not exclude early acuteHCV infection. Blood Venous blood specimen / Unknown 11/09/2024 8:00 AM EDT 11/09/2024 8:11 AM EDT us Malia Hall MD LAB BLOOD ORDERABLES Final Result Performing Organization Address [facility] Co de Phone Number [facility] [address] [place] [phone] * HIV-1/2 Antigen and Antibodies, Fourth Generation, with Reflexes (11/09/2024 8:00 AM EDT) HIV AB/AG Nonreactive Nonreactive [facility] Comment:HIV-1 p24 Ag and/or HIV-1/HIV-2 Ab not detected.A test result that is nonreactive does not exclude thepossibility of exposure to or infection with HIV-1 and/orHIV-2. Nonreactive results in this assay for individualswith prior exposure to HIV-1 and/or HIV-2 may be due toantigen and antibody levels that are below the limit ofdetection of this assay.The Clear Standards HIV Ag/Ab Combo assay result andsupplemental assay results should be interpreted inconjunction with the patient's clinical presentation,history and other laboratory results. If the results areinconsistent with clinical evidence, additional testing issuggested to confirm the result. Blood Venous blood specimen / Unknown 11/09/2024 8:00 AM EDT 11/09/2024 8:11 AM EDT us Malia Hall MD LAB BLOOD ORDERABLES Final Result [facility] [address] [place] [phone] * (ABNORMAL) Comprehensive Metabolic Panel (11/09/2024 8:00 AM EDT) Sodium 142 135 - 145 mmol/L [facility] Potassium 3.8 3.3 - 5.1 mmol/L [facility] Chloride 111(H) 96 - 108 mmol/L [facility] Carbon Dioxide 25 22 - 29 mmol/L [facility] Anion Gap 10(L) 12 - 20 [facility] Urea Nitrogen (BUN) 17(H) 9 - 16 mg/dL [facility] Creatinine, Serum 0.62 0.5 - 1.4 mg/dL [facility] Estimated Glomerular Filt Rate >60 [facility] Comment:Chronic Kidney Disea se: Estimated GFR < 60 mL/min/1.50d7Rgqoth Kidney Disease: Estimated GFR < 15 mL/min/1.73m2 Glucose 134(H) 60 - 115 mg/dL [facility] Calcium 8.9 8.4 - 10.2 mg/dL [facility] Bilirubin, Total 0.3 0.0 - 1.0 mg/dL [facility] Aspartate Amino Transferase 23 5 - 31 U/L [facility] Alanine Aminotransferase 30 0 - 31 U/L [facility] Total Protein 7.4 6.5 - 8.0 g/dL [facility] Albumin Level 3.5 3.5 - 5.0 g/dL [facility] Alkaline Phosphatase 62 39 - 117 U/L [facility] Blood Venous blood specimen / Unknown 11/09/2024 8:00 AM EDT 11/09/2024 8:11 AM EDT us Malia Hall MD LAB BLOOD ORDERABLES Final Result [facility] [address] [place] [phone] * (ABNORMAL) CBC auto differential (11/09/2024 8:00 AM EDT) White Blood Count 6.7 4.8 - 10.8 X10*3/uL [facility] Red Blood Count 4.71 4.20 - 5.50 X10*6/uL [facility] Hemoglobin 13.4 12.0 - 16.0 g/dl [facility] Hematocrit 39.8 37.0 - 47.0 % [facility] Mean Corpuscular Volume 84.5 80.0 - 98.0 fL [facility] Mean Corpuscular Hemoglobin 28.5 27.0 - 33.0 pg [facility] Mean Corpuscular HGB Conc 33.7 31.0 - 35.0 g/dl [facility] Red Cell Distribution Width 13.4 11.0 - 16.0 % [facility] Platelet Count 199 160 - 400 X10*3/uL [facility] Mean Platelet Volume 11.4 9.4 - 12.3 fL [facility] Neutrophils Percent Auto 57.9 45 - 73 % [facility] Imm Gran Pct Auto 0.5(H) 0.0 - 0.4 % [facility] Lymphocytes Percent Auto 32.6 20 - 40 % [facility] Monocytes Percent Auto 6.9 2 - 11 % [facility] Eosinophils Percent Auto 1.8 0 - 4 % [facility] Basophils Percent Auto 0.3 0 - 2 % [facility] NRBC Pct Auto 0.0 0.0 - 0.2 /100WBC [facility] Neutrophils Absolute Auto 3.9 2.0 - 8.3 x10*3/uL [facility] Imm Gran Abs Auto 0.03 0.00 - 0.03 X10*3/uL [facility] Lymphocytes Absolute Auto 2.2 1.2 - 4.9 X10*3/uL [facility] Monocytes Absolute Auto 0.5 0.1 - 1.2 X10*3/uL [facility] Eosinophils Absolute Auto 0.1 0.0 - 0.4 X10*3/uL [facility] Basophils Absolute Auto 0.0 0.0 - 0.2 X10*3/uL [facility] NRBC Abs Auto 0.000 0.0 - 0.012 X10*3/uL [facility] Blood Venous blood specimen / Unknown 11/09/2024 8:00 AM EDT 11/09/2024 8:11 AM EDT Malia Hall MD LAB BLOOD ORDERABLES Final Result Performing Organization Address City/State/[facility] Co de Phone Number [facility] [address] [place] [phone] documented in this encounter Visit Diagnoses Diagnosis Palpitation- Primary Palpitations SOB (shortness of breath) on exertion Shortness of breath Chronic fatigue Other malaise and fatigue documented in this encounter Additional Health Concerns Assessment Noted Time PHQ-9 Depression Total Score: 13 10/27/ 024 10:37 AM EST documented as of this encounter Care Teams Senior Compensation Analyst Relationship Specialty Start Date End Date Radha Bran MD [address] [place] [phone] PCP - General Family Medicine 10/16/20 documented as of this encounter
--- OUTSIDE RECORDS SUMMARY | 2024-11-24 17:05 | XMS_ITS | Encounter Summary ---
Author Organization [employer] [facility] Address [address] [place] [address] 7 [place] [address] Care Team Providers Care Orthopedic Coder Name Role Phone Radha Bran MD Primary Care Provider + Encounter Details Date Type Department Care Team (Late st Contact Info) Description 08/06/2022 Telephone [facility] MEDICINE [address] [place] [address] [phone] Radha Bran MD [address] [place] [address] Social History Tobacco Use Types Packs/Day Years [...] 10:30 AM EDT Office Visit [facility] MEDICINE [address] [place] [phone] Radha Bran MD [address] [place] [address] [phone] documented as of this encounter Visit Diagnoses Not on filedocumented in this encounter Care Teams Orthopedic Coder Relationship Specialty Start Date End Date Radha Bran MD [address] [place] [phone] PCP - General Family Medicine 10/16/20 documented as of this encounter
--- OUTSIDE RECORDS SUMMARY | 2024-11-24 17:05 | XMS_ITS | Encounter Summary ---
Author Organization [employer] Address [address] [place] [address] Care Team Providers Care Automobile Sales Representative Name Role Phone Radha Bran MD Primary [...] 12/15/2024 10:30 AM EDT Office Visit [facility]INE [address] [place] [address] Radha Bran MD [address] [place] [address] documented as of this encounter Visit Diagnoses Not on filedocumented in this encounter Additional Health Concerns Assessment Noted Time PHQ-9 Depression Total Score: 13 024 10:37 AM EST documented as of this encounter Care Teams Automobile Sales Representative Relationship Specialty Start Date End Date Radha Bran MD [address] [place] [phone] PCP - General Family Medicine 10/16/20 documented as of this encounter
--- OUTSIDE RECORDS SUMMARY | 2024-11-24 17:05 | XMS_ITS | Encounter Summary ---
Author Organization [employer] Address [address] [facility] 7t [place] [address] Care Team Providers Care Debit Agent Name Role Phone Radha Bran MD Primary Care Provider + Reason for Visit * Reason Onset Date Comments Results 11/11/2024 Encounter Details Date Type Department Care Team ([facility] st Contact Info) Description 11/11/2024 Telephone [facility] [address] [place] [address] Maddie Maurer RN Results Social History Tobacco [...] EDT TC placed to pt with S vehicle mechanic Elza #[phone] to inform of pt most recent lab [...] Description 12/15/2024 10:30 AM EDT Office Visit [facility] [address] [place], [place] [phone] Radha Bran MD [address] [place] [address] documented as of this encounter Visit Diagnoses Not on filedocumented in this encounter Additional Health Concerns Assessment Noted Time PHQ-9 Depression Total Score: 13 10/27/ 024 10:37 AM EST documented as of this encounter Care Teams Debit Agent Relationship Specialty Start Date End Date Radha Bran MD [address] [place] [phone] PCP - General Family Medicine 10/16/20 documented as of this encounter
--- OUTSIDE RECORDS SUMMARY | 2024-11-24 17:05 | XMS_ITS | Data Portability ---
Author Organization [employer] [facility] Address [address] [place] [phone] Care Team Providers Care Playground Equipment Erector Name Role Phone [facility] Referring Provider [facility] Referring Provider Assessment Encounter Date Assessment Date Assessment LastModified by Organization Details LastModified Time 03/17/2022 03/17/2022 I have reviewed and agree with the Assessment and Plan as documented by the Assistant Merchandiser. I provided real -time medical direction via [...] go to the ER- report called to [facility] [email or web address] Not available 03/18/2022 21:31:13 Plan of Treatment Reminders Order Date Submit Date Provider Last Modified By Organization Details Last Modified Time Details Appointments None recorded. Lab None recorded. Referral None recorded. Procedures None recorded. Surgeries None recorded. Imaging electrocard iogram 2021 022 [email or web address] 0 [facility], [address] [place] [address], [phone], 21:32:45 Medication Orders None recorded. Patient TargetsNo targets recorded. Patient InstructionsNo instructions recorded. Reason for Referral None Reported. Results Created Date Observation Date Name Description Value Unit Range Abnormal Flag Note LastModifiedBy Organization Detail LastModifiedTime 03/18/20 22 03/18/2022 elect doug dupontgr am No observ ation record ed. [address], [phone], 03/18/2022 21:32:33 Result Notes None recorded. Procedures Surgical History None recorded. Imaging Results Imaging Date Name Status LastModified by Organization Details LastModified Time 03/18/2022 electrocardiogram completed [email or web address], [place], [phone], 03/18/2022 21:32:33 Procedure Notes None recorded. Medical [...] Address Organization Details Last Updated DateTime 2 579859. 2 g 157.48 cm 97.8 [degF] 97 [...] 2768 Chelsea Hernandez MD Main - [facility] [address] [place] [phone] 03/17/2022 16:53:01 05/13/2022 21:10:03 Chest pain [id number] R07.9 Health Concerns Section Related Observation LastModified by Organization Detai ls LastModified Time None Recorded Concern Status LastModified by Organization Details LastModified Time None Recorded Advance Directives Directive None Recorded Payers Encounter Date Sequence Insurance Name Policy Number Policy Wagner Covered Member ID Wagner Member ID Guarantor Name 03/17/[address] [facility] - DOS PRIOR TO 2022 - DUAL ELIGIBLE (MEDICARE REPLACEMENT/ADV ANTAGE - HMO) Halley Ramon [id number] Halley Ramon Notes Date Note Type Note [...] ................... ................... ................... ................... ................... ................... ........ Assistant Merchandiser Note: Sent to a call for a pt complaining of chest pain and sob. [facility] arrives on scene, pt arrives home in a van. Pt is alert and oriented. Airway is patent. Planning Advisor line used for communication as pt's primary language is Irish. Pt complains of left lateral neck pain [...] dizziness, n/v/d, abd pain, fever/chills or loc. [facility] orders 12 lead ECG. [facility] advises pt to be transported to ED for further evaluation/treatmen t. Pt agrees. Pt care is transferred to [facility]. Pt transported to [facility]. ................... ................... ................... ................... ................... ................... ................... ........ Disposition: FulfilledSEGMD- as above-Pat seen at [facility] 03/06/22- was having neck pain and headache at the time-denied having CP or telling staff she had CP.- that started more recently. She finished the antibiotics- was also given albuterol, but she did not use it as it was making her nervous/ shakey//has minimal cough- clear phlegm. She reports she sees a precipitator supervisor, but does not know her cardiac dx. Has hx obesity/ DM/ HTN/REY / panic d/o per old record. Quit smoking > 35 yrs ago- pat reports no known family hx CAD. Chelsea Hernandez MD [address] [facility],[address], [place], [phone], [employer] 03/18/2022 21:32:58 OBGyn Episode No OBEpisode recorded.
--- OUTSIDE RECORDS SUMMARY | 2024-11-24 17:05 | XMS_ITS | Clinical Summary ---
Author Organization [employer] Address [address] [facility] [address] [place] [address] Care Team Providers Care Court Officer Name Role Phone Dominick Bran MD Primary Care Provider + Allergies No known active allergies Medications * This document contains information received from the source organization and may not represent a complete record from that organization. aspirin 81 MG EC tablet Take 1 tablet by mouth in the morning. 8 Active baclofen (Lioresal) 20 MG tablet Take 1 tablet by mouth every 8 (eight) hours. 1 Active folic acid (Folvite) 1 MG tablet Take 1 tablet by mouth in the morning. 7 Active betamethasone valerate (Valisone) 0.1 % cream Apply topically in the morning. 2 Active cetirizine (ZyrTEC) 10 MG tablet Take 1 tablet by mouth in the morning. 1 Active Docusate Sodium (DSS) 100 MG capsule Take 1 capsule by mouth every 12 (twelve) hours. Active fluticasone (Flovent HFA) 220 MCG/ACT inhaler Inhale 2 puffs every 12 (twelve) hours. 0 Active glucose blood (FREESTYLE LITE) test strip 3 each every 8 (eight) hours. 1 Active glucose blood (OneTouch Ultra) test strip 2 each every 12 (twelve) hours. 0 Active mirabegron ER (Myrbetriq) 50 MG 24 hr tablet Take 1 tablet by mouth in the morning. 9 Active multivitamin (Theragran) tablet Take 1 tablet by mouth in the morning. 9 Active Vaginal Lubricant (Replens) gel use as directed 2 Active Blood Pressure Monitoring (Blood Pressure Cuff) [...] PUFFS BY MOUTH FOUR TIMES DAILY NEEDED 2 Active UltiCare Alcohol Swabs 70 % pads DIRECTED TWICE DAILY 2 Active fluconazole (Diflucan) 150 MG tablet fluconazole [...] morning. Before a meal 30 capsule 11 3 Active Diclofenac Sodium 1 % gel 2 Active CeQur Simplicity 2U device APPLY PATCH DIRECTED 3 Active HumaLOG 100 UNIT/ML injection Inject 8 units TID 3 Active fluticasone (Flonase Allergy Relief) 50 MCG/ACT nasal sprayIndication s:Obstructive sleep apnea syndrome Administer 2 sprays into each nostril in the morning. 16 g 3 3 Active Iron, Ferrous Sulfate, 325 (65 Fe) MG tabletIndicatio ns:Other iron deficiency anemia Take 1 tablet by mouth in the morning. 90 tablet 3 3 Active Insulin Glargine Solostar 100 UNIT/ML solution pen-injectorInd ications:Type I or II open displaced comminuted fracture of shaft of left tibia with routine healing, subsequent encounter Inject 30 Units under the skin in the morning. Inject 24u/hs (endocrinology refills) 10 mL 3 4 Active acetaminophen (Tylenol) 500 MG tabletIndicatio ns:Encounter for preventive health examination,Cornel waggoner Take 1-2 tablets (500-1,000 mg) by mouth every 6 (six) hours if needed for mild pain. 120 tablet 4 Active hydrOXYzine pamoate (Vistaril) 25 MG capsule Take 1 capsule (25 mg) by mouth every 6 (six) hours if needed for anxiety. 45 capsule 1 4 Active irbesartan (Avapro) 75 MG tablet Take 1 tablet (75 mg) by mouth in the morning. 30 tablet 11 4 025 Active BD Pen Needle Nora 2nd Gen 32G X 4 MM misc Use as instructed 100 each 4 Active Polyvinyl Alcohol-Povidon e 5-6 MG/ML solution Administer 2 drops into affected eye(s) 4 times daily. 15 mL 3 4 025 Active gabapentin (Neurontin) 100 MG capsuleIndicati ons:Type I or II open displaced comminuted fracture of shaft of left tibia with routine healing, subsequent encounter TAKE 1 CAPSULE(100 MG) BY MOUTH EVERY 12 HOURS 60 capsule 3 4 Active escitalopram (Lexapro) 20 MG tablet TAKE 1 TABLET(20 MG) BY MOUTH EVERY DAY 30 tablet 3 5 Active Active Problems Problem Noted Date Diagnosed Date [...] daily 1 more week. Will refer to [facility] for assistance to move to a housing [...] intervention , [facility], Comply with medication , [...] better controlled She has an appointment w/ horse rancher in the next 2 wks Continue Humalog + Lantus 24 units + Mounjaro Counseled re more frequent low calorie/carb meals. Check fgstk daily Encouraged physical activity as tolerated. FU w/ horse rancher Assessment & Plan (10/12/2023 2:48 PM EST): [...] units TID AC meals and FU with horse rancher in February, she will fu with me in 12 weeks Assessment & Plan (01/09/2023 11:10 AM EDT): Uncontrolled. Increase Lantus to 30 units per day and no other medication changes, follow up with horse rancher. Assessment & Plan (09/24/2022 10:50 AM EST): Uncontrolled. A1C is worse than last month. Most likely related to acute URI at this time. No change in medications, FU closely with horse rancher. COVID-19 09/24/2022 Assessment & Plan (09/24/2022 10:51 [...] covid test is positive. Lesion of right [place] kidney 09/24/2022 Assessment & Plan (09/24/2022 10:53 [...] Plan (01/09/2023 11:08 AM EDT): Refer to [facility] to assist with moving to a handicap [...] she seems to be overdue for Avapro pick pack worker. Continue Avapro 75mg and fu with me [...] Encounters Date Type Department Care Team Description 11/16/2024 Telephone [facility] [address] [place], [place] [phone] Dominick Bran MD Results 11/16/2024 Orders Only [facility] [address] [place], [place] [phone] Malia Franklin MD Positive DOMINICK (antinuclear antibody) (Primary Dx); Fatigue, unspecified type 11/11/2024 Telephone [facility] [address] [place], [place] [phone] Maddie Maurer RN Results 11/09/2024 Orders Only GENERIC EXTERNAL DATA DEPARTMENT Provider, Generic External Data 11/03/2024 2:45 PM EST Office Visit [address] [address] Malia Franklin MD Palpitation (Primary Dx); SOB (shortness of breath) on exertion; Chronic fatigue 11/03/2024 Travel 11/03/[address] [address] Dominick Bran MD Nurse Triage 11/02/[address] [address] Dominick Bran MD Chart Prep 11/02/2024 Orders Only GENERIC EXTERNAL DATA DEPARTMENT Provider, Generic External Data 10/01/[address] [address] Dominick Bran MD 09/21/2024 Orders Only GENERIC EXTERNAL DATA DEPARTMENT Provider, Generic External Data 09/08/[address] [address] Dominick Bran MD Durable Medical Equipment 09/06/[address] [phone] Dominick Bran MD Durable Medical Equipment 08/29/[address] [phone] Kennedi Calix RN f/u call from Last 3 Months Immunizations Name Administration [...] 10:30 AM EDT Office Visit [facility] [address] [place] [address] Dominick Bran MD [address] [place] [address] Health Maintenance Due Date Last Done Comments [...] Routine 11/09/2024 8:00 AM EDT Chronic fatigue DOMINICK SCREEN, IFA, W/REFL TITER AND PATTERN Routine [...] WHOLE BLOOD Routine 09/21/2024 1:18 PM EST HEMOGLOBIN A1C Routine 05/24/2024 11:53 AM EDT HM MAMMOGRAPHY Routine 11/26/2021 HM COLONOSCOPY Routine 10/04/2019 from Last 3 Months or Most Recently Relevant to Health Maintenance Results * (ABNORMAL) Protein Creatinine Ratio, Urine (11/09/2024 8:02 AM EDT) Creatinine, Urine 265.18 mg/dL [facility] Protein, Total, Random Urine 61(H) <12 mg/dL [facility] Protein/Creati nine Ratio, Ur 0.23(H) <0.2 [facility] Comment:The spot urine prote in:creatinine ratio may increase to 0.3during normal . 11/09/2024 8:02 AM EDT 11/09/2024 8:20 AM EDT us Generic External Data Provider LAB URINE ORDERAB LES Final Result [facility] [address] [place] [phone] * (ABNORMAL) Vitamin D, 25-Hydroxy, Total, Immunoassay (11/09/2024 8:00 AM EDT) Vitamin D 25-OH Total 19.7(L) >30 ng/mL [facility] Comment: Health Based Reference Values*< 20 ??ng/mL ??Fsxbfxbke25-46 ng/mL ??Insufficient> 30 ??ng/mL ??Sufficient*Taras SUAZO. N [...] Hall MD LAB BLOOD ORDERABLES Final Result [facility] [address] [place] [address] [phone] * Vitamin B12/Folate, Serum Panel (11/09/2024 8:00 AM EDT) Vitamin B12 525 200 - 900 pg/mL [facility] Comment:NORMAL 200-900 PG/ML INDETERMINATE 160-199 PG/ML DEFICIENT < 160 PG/ML Folate 9.0 > or = 4.0 ng/mL [facility] Comment:Reference Values:> o r = [...] BLOOD ORDERABLES Final Result Performing Organization Address [facility] Co de Phone Number [facility] [address] [place] [phone] * TSH with Reflex to Free T4 (11/09/2024 8:00 AM EDT) TSH reflex Free T4 3.69 0.32 - 4.0 uIU/mL [facility] Blood Venous blood specimen / Unknown 11/09/2024 8:00 AM EDT 11/09/2024 8:11 AM EDT us Malia Hall MD LAB BLOOD ORDERABLES Final Result Performing Organization Address [facility] Co de Phone Number [facility] [address] [place] [phone] * (ABNORMAL) CBC auto differential (11/09/2024 8:00 AM EDT) White Blood Count 6.7 4.8 - 10.8 X10*3/uL [facility] Red Blood Count 4.71 4.20 - 5.50 X10*6/uL [facility] Hemoglobin 13.4 12.0 - 16.0 g/dl [facility] Hematocrit 39.8 37.0 - 47.0 % [facility] Mean Corpuscular Volume 84.5 80.0 - 98.0 fL [facility] Mean Corpuscular Hemoglobin 28.5 27.0 - 33.0 pg [facility] Mean Corpuscular HGB Conc 33.7 31.0 - 35.0 g/dl [facility] Red Cell Distribution Width 13.4 11.0 - 16.0 % [facility] Platelet Count 199 160 - 400 X10*3/uL [facility] Mean Platelet Volume 11.4 9.4 - 12.3 fL [facility] Neutrophils Percent Auto 57.9 45 - 73 % [facility] Imm Gran Pct Auto 0.5(H) 0.0 - 0.4 % [facility] Lymphocytes Percent Auto 32.6 20 - 40 % [facility] Monocytes Percent Auto 6.9 2 - 11 % [facility] Eosinophils Percent Auto 1.8 0 - 4 % [facility] Basophils Percent Auto 0.3 0 - 2 % [facility] NRBC Pct Auto 0.0 0.0 - 0.2 /100WBC [facility] Neutrophils Absolute Auto 3.9 2.0 - 8.3 x10*3/uL [facility] Imm Gran Abs Auto 0.03 0.00 - 0.03 X10*3/uL [facility] Lymphocytes Absolute Auto 2.2 1.2 - 4.9 X10*3/uL [facility] Monocytes Absolute Auto 0.5 0.1 - 1.2 X10*3/uL [facility] Eosinophils Absolute Auto 0.1 0.0 - 0.4 X10*3/uL [facility] Basophils Absolute Auto 0.0 0.0 - 0.2 X10*3/uL [facility] NRBC Abs Auto 0.000 0.0 - 0.012 X10*3/uL [facility] Blood Venous blood specimen / Unknown 11/09/2024 8:00 AM EDT 11/09/2024 8:11 AM EDT us Malia Hall MD LAB BLOOD ORDERABLES Final Result [facility] [address] [place] [phone] [phone] * Hepatitis C Antibody with Reflex to HCV, RNA, Quantitative, Real-Time PCR (11/09/2024 8:00 AM EDT) [facility] Hepatitis C Antibody Nonreactive Nonreactive [facility] Comment:Antibodies to HCV no t detected; does not exclude early acuteHCV infection. Blood Venous blood specimen / Unknown 11/09/2024 8:00 AM EDT 11/09/2024 8:11 AM EDT Malia Hall MD LAB BLOOD ORDERABLES Final Result Performing Organization Address [facility] de Phone Number [facility] [address] [place] [phone] * Cyclic Citrullinated Peptide (CCP) Antibody (IgG) (11/09/2024 8:00 AM EDT) [facility] Cyclic Citrullinated Peptide <16 UNITS [facility] Comment:Reference RangeNegat maggie: <20Weak Positive: 20-39Moderate Positive: 40-59Strong Positive: >59THIS TEST WAS PERFORMED AT:[facility] [address] [id number] WEINSTEIN MD Blood Venous blood specimen / Unknown 11/09/2024 8:00 AM EDT 11/09/2024 8:11 AM EDT us Malia Hall MD LAB BLOOD ORDERABLES Final Result Performing Organization Address [facility] Co de Phone Number [facility] [address] [place] [phone] * Iron And Total Iron Binding Capacity (11/09/2024 8:00 AM EDT) [facility] Iron 51 30 - 160 mcg/dL [facility] Total Iron Binding Capacity 267 228 - 428 mcg/dL [facility] Percent Iron Saturation 19 15 - 50 % [facility] Unsaturated Iron Binding 216 ug/dL [facility] Blood Venous blood specimen / Unknown 11/09/2024 8:00 AM EDT 11/09/2024 8:11 AM EDT us Malia Hall MD LAB BLOOD ORDERABLES Final Result Performing Organization Address [facility] Co de Phone Number [facility] [address] [place] [phone] * HIV-1/2 Antigen and Antibodies, Fourth Generation, with Reflexes (11/09/2024 8:00 AM EDT) HIV AB/AG Nonreactive Nonreactive [facility] Comment:HIV-1 p24 Ag and/or HIV-1/HIV-2 Ab not detected.A test result that is nonreactive does not exclude thepossibility of exposure to or infection with HIV-1 and/orHIV-2. Nonreactive results in this assay for individualswith prior exposure to HIV-1 and/or HIV-2 may be due toantigen and antibody levels that are below the limit ofdetection of this assay.The [employer] HIV Ag/Ab Combo assay result andsupplemental assay results should be interpreted inconjunction with the patient's clinical presentation,history and other laboratory results. If the results areinconsistent with clinical evidence, additional testing issuggested to confirm the result. Blood Venous blood specimen / Unknown 11/09/2024 8:00 AM EDT 11/09/2024 8:11 AM EDT us Malia Hall MD LAB BLOOD ORDERABLES Final Result Performing Organization Address [facility]/ZIP Co de Phone Number [facility] [address] [place] [phone] * (ABNORMAL) Sed Rate by Modified Westergren (11/09/2024 8:00 AM EDT) Erythrocyte Sedimentation Rate 27(H) 0 - 20 MM/HR [facility] Comment:Patients with polycy themia and many hemoglobin abnormalitiesmay have depressed sed rates whereas patients with anemiamay have elevated sed rates. Blood Venous blood specimen / Unknown 11/09/2024 8:00 AM EDT 11/09/2024 8:11 AM EDT Malia Hall MD LAB BLOOD ORDERABLES Final Result Performing Organization Address [facility] Co de Phone Number [facility] [address] [place] [phone] * (ABNORMAL) C-reactive Protein (11/09/2024 8:00 AM EDT) Pathologist [facility] C Reactive Protein 0.85(H) < or = 0.50 mg/dL [facility] Blood Venous blood specimen / Unknown 11/09/2024 8:00 AM EDT 11/09/2024 8:11 AM EDT us Malia Hall MD LAB BLOOD ORDERABLES Final Result Performing Organization Address [facility] de Phone Number [facility] [address] [place] [phone] * (ABNORMAL) DOMINICK Screen,IFA, with Reflex to Titer and Pattern (11/09/2024 8:00 AM EDT) Pathologist [facility] Anti Nuclear Antibody Screen POSITIVE (A) NEGATIVE [facility] Comment:DOMINICK IFA is a first l ine screen for detecting thepresence of up to approximately 150 autoantibodies invarious autoimmune diseases. A positive DOMINICK IFA resultis suggestive of autoimmune disease and reflexes totiter and pattern. Further laboratory testing may beconsidered if clinically indicated.For additional information, please refer tohttp://education.Ecoviate/faq/BOR058(This link is being provided for informational/educational purposes only.) DOMINICK Titer 1:40(A) titer [facility] Comment:A low level DOMINICK tite r may be present in pre-clinicalautoimmune diseases and normal individuals. Reference Range <1:40 Negative 1:40-1:80 Low Antibody Level >1:80 Elevated Antibody Level DOMINICK Pattern Nuclear, Speckled (A) [facility] Comment:Speckled pattern is associated with mixed connectivetissue disease (MCTD), systemic lupus erythematosus(SLE), Sjogren's syndrome, dermatomyositis, andsystemic sclerosis/polymyositis overlap.AC-2,4,5,29: SpeckledInternational Consensus on DMOINICK Patterns(https://doi.org/10.1515/xizh-6328-8279)THIS TEST WAS PERFORMED AT:[employer] [place] [id number] WEINSTEIN MD DOMINICK TITER 2 (REF LAB) [facility] DOMINICK Pattern 2 [facility] DOMINICK TITER 3 [facility] DOMINICK PATTERN 3 [facility] Blood Venous blood specimen / Unknown 11/09/2024 8:00 AM EDT 11/09/2024 8:11 AM EDT us Malia Hall MD LAB BLOOD ORDERABLES Final Result Performing Organization Address City/[facility]/ZIP Co de Phone Number [facility] [address] [place] [phone] * (ABNORMAL) BUN (Blood Urea Nitrogen) (11/09/2024 8:00 AM EDT) Urea Nitrogen (BUN) 18(H) 9 - 16 mg/dL [facility] 11/09/2024 8:00 AM EDT 11/09/2024 8:11 AM EDT us Generic External Data Provider LAB BLOOD ORDERAB LES Final Result Performing Organization Address [facility]/ZIP Co de Phone Number [facility] [address] [place] [phone] * Ferritin (11/09/2024 8:00 AM EDT) Ferritin 36 10 - 250 ng/mL [facility] Blood Venous blood specimen / Unknown 11/09/2024 8:00 AM EDT 11/09/2024 8:11 AM EDT us Malia Hall MD LAB BLOOD ORDERABLES Final Result Performing Organization Address [facility] Co de Phone Number [facility] [address] [place] [phone] * Lipid Panel, Standard (11/09/2024 8:00 AM EDT) Triglycerides 98 <150 mg/dL [facility] Comment:Desirable Triglyceri de: less than 150 mg/dLBorderline High Triglyceride 150-199 mg/dLHigh Triglyceride: 200-499 mg/dLVery High Triglyceride: greater than or equal to 5OO mg/dL Cholesterol 126 <200 mg/dL [facility] Comment:Desirable Cholestero l: less than 200 mg/dLBorderline High Cholesterol: 200-239 mg/dLHigh Cholesterol: greater than 239 mg/dL LDL Cholesterol Calculated 62 <100 mg/dL [facility] Comment:Desirable LDL: less than 100 mg/dLNear Optimal/Above Optimal LDL: 110- 129 mg/dLBorderline High LDL: 130-159 mg/dLHigh LDL: 160-189 mg/dLVery High LDL: greater than or equal to 190 mg/dL HDL Cholesterol 45 >40 mg/dL [facility] Comment:Desirable HDL: great er than 40 mg/dL Note: This HDL assay may give artificially low results in patients with liver disease. Blood Venous blood specimen / Unknown 11/09/2024 8:00 AM EDT 11/09/2024 8:11 AM EDT us Malia Hall MD LAB BLOOD ORDERABLES Final Result Performing Organization Address City/[facility]/ZIP Co de Phone Number [facility] [address] [place] [phone] [phone] * (ABNORMAL) Comprehensive Metabolic Panel (11/09/2024 8:00 AM EDT) Sodium 142 135 - 145 mmol/L [facility] Potassium 3.8 3.3 - 5.1 mmol/L [facility] Chloride 111(H) 96 - 108 mmol/L [facility] Carbon Dioxide 25 22 - 29 mmol/L [facility] Anion Gap 10(L) 12 - 20 [facility] Urea Nitrogen (BUN) 17(H) 9 - 16 mg/dL [facility] Creatinine, Serum 0.62 0.5 - 1.4 mg/dL [facility] Estimated Glomerular Filt Rate >60 [facility] Comment:Chronic Kidney Disea se: Estimated GFR < 60 mL/min/1.01m2Zlqshv Kidney Disease: Estimated GFR < 15 mL/min/1.73m2 Glucose 134(H) 60 - 115 mg/dL [facility] Calcium 8.9 8.4 - 10.2 mg/dL [facility] Bilirubin, Total 0.3 0.0 - 1.0 mg/dL [facility] Aspartate Amino Transferase 23 5 - 31 U/L [facility] Alanine Aminotransferase 30 0 - 31 U/L [facility] Total Protein 7.4 6.5 - 8.0 g/dL [facility] Albumin Level 3.5 3.5 - 5.0 g/dL [facility] Alkaline Phosphatase 62 39 - 117 U/L [facility] Blood Venous blood specimen / Unknown 11/09/2024 8:00 AM EDT 11/09/2024 8:11 AM EDT us Malia Hall MD LAB BLOOD ORDERABLES Final Result [facility] [address] [place], [place] [phone] * (ABNORMAL) Glucose, Whole Blood (11/02/2024 1:25 PM EST) Only the most recent of2 resultswithin the time period is included. Glucose, Whole Blood 145(H) 60 - 115 mg/dL [facility] Comment:METER #: [id number] Testing performed in the Endocrinology Department [address] , [address], [facility]. 11/02/2024 1:25 PM EST 11/02/2024 1:30 PM EST Generic External Data Provider LAB BLOOD ORDERAB LES Final Result Performing Organization Address [facility]/ZIP Co de Phone Number [facility] [address] [place] [phone] * (ABNORMAL) Hemoglobin A1c (05/24/2024 11:53 [...] patient sample. Estimated Average Glucose 151 mg/dL [facility] Comment:eAG = Estimated ave rage glucose which is %A1C expressed asaverage glucose, using the formula of the R2Q-QpkxzdiJhbakrg Glucose study (ADAG), Diabetes Care, Vol.31,#8,Mar. 2007 05/24/2024 11:5 3 AM EDT 05/24/2024 11:53 AM EDT us Generic External Data Provider LAB BLOOD ORDERAB LES Final Result Performing Organization Address [facility]/ZIP Co de Phone Number [facility] [address] [place] [phone] * Mammography (11/26/2021) Mammogram performed Anatomical Region Laterality Modality Other us Historical Provider HEALTH MAINTENANCE Final Result * Colonoscopy (10/04/2019) Colonoscopy performed us Historical Provider HEALTH MAINTENANCE Edited Result - Final from Last 3 Months or Most Recently Relevant to Health Maintenance Insurance [facility] Care Teams Court Officer Relationship Specialty Start Date End Date Dominick Bran MD [address] [place] [address] [place] [address] PCP - General Family Medicine 10/16/20
--- OUTSIDE RECORDS SUMMARY | 2024-11-24 17:05 | XMS_ITS | Encounter Summary ---
Author Organization [employer] Address [address] [place] [address] [address] [place] [address] Care Team Providers Care Orthopedic Nurse Name Role Phone Radha Bran MD Primary Care Provider + Reason for Visit * Reason Onset Date Comments Letter for School/Work 10/16/2022 Encounter Details Date Type Department Care Team ([facility] st Contact Info) Description 10/16/2022 Telephone [facility] [address] [place] [phone] Radha Bran MD [address] [place] [address] Letter for School/Work Social History Tobacco Use [...] 12/15/2024 10:30 AM EDT Office Visit [facility] [address] [place], [place] [phone] Radha Bran MD [address] [place] [address] documented as of this encounter Visit Diagnoses Not on filedocumented in this encounter Care Teams Orthopedic Nurse Relationship Specialty Start Date End Date Radha Bran MD [address] [place], [place] [phone] PCP - General Family Medicine 10/16/20 documented as of this encounter
--- OUTSIDE RECORDS SUMMARY | 2024-11-24 17:05 | XMS_ITS | Encounter Summary ---
Author Organization [facility] [employer] [facility] Address [address] [place] [address] 7 [place] [address] Care Team Providers Care Bale Stacker Name Role Phone Radha Bran MD Primary Care Provider + Encounter Details Date Type Department Care Team (Late st Contact Info) Description 07/28/2022 Abstract [facility] [address] [place] [address] ProviderBritany MD Social History Tobacco Use Types [...] 10:30 AM EDT Office Visit [facility] [address] [place] [address] Radha Bran MD [address] [place] [address] documented as of this encounter Visit Diagnoses Not on filedocumented in this encounter Care Teams Bale Stacker Relationship Specialty Start Date End Date Radha Bran MD [address] [place] [phone] PCP - General Family Medicine 10/16/20 documented as of this encounter
--- OUTSIDE RECORDS SUMMARY | 2024-11-24 17:05 | XMS_ITS | Encounter Summary ---
Author Organization [employer] Address [address] [facility] 7t [place] [address] Care Team Providers Care Visual Merchandiser Name Role Phone Radha Bran MD Primary Care Provider + Reason for Visit * Reason Onset Date Comments Durable Medical Equipment 10/08/2023 Encounter Details Date Type Department Care Team ([facility] st Contact Info) Description 10/08/2023 Telephone [facility] [address] [place] [address] Radha Bran MD [address] [place] [address] Durable Medical Equipment Social History Tobacco Use [...] if any questions contact Bunny Sow at [phone]. documented in this encounter Plan of Treatment Upcoming Encounters Date Type Department Care Team (Late st Contact Info) Description 12/15/2024 10:30 AM EDT Office Visit [facility] [address] [place] [address] Radha Bran MD [address] [place] [address] documented as of this encounter Visit Diagnoses Not on filedocumented in this encounter Care Teams Visual Merchandiser Relationship Specialty Start Date End Date Radha Bran MD [address] [place] [id number] PCP - General Family Medicine 10/16/20 documented as of this encounter
--- OUTSIDE RECORDS SUMMARY | 2024-11-24 17:05 | XMS_ITS | Encounter Summary ---
Author Organization [employer] Address [address] [facility] 7t [place] [address] Care Team Providers Care Sprinkler Fitter Helper Name Role Phone Radha Bran MD Primary Care Provider + Reason for Visit * Reason Onset Date Comments Nurse Triage 11/03/2024 Encounter Details Date Type Department Care Team ([facility] st Contact Info) Description 11/03/[address] [facility] [address] [place] [address] Radha Bran MD [address] [place] [address] Nurse Triage Social History Tobacco Use Types [...] 11/03/2024 1:00 PM EST Called pt. Via [employer] educational sign language interpreter [id number] Blas. Pt. States that she has been [...] 3 days The caller accepted this outcome. [phone] tamazight documented in this encounter Plan of Treatment Upcoming Encounters Date Type Department Care Team (Late st Contact Info) Description 12/15/2024 10:30 AM EDT Office Visit [facility] [address] [place] [address] Radha Bran MD [address] [place] [address] documented as of this encounter Visit Diagnoses Not on filedocumented in this encounter Additional Health Concerns Assessment Noted Time PHQ-9 Depression Total Score: 13 10/27/ 024 10:37 AM EST documented as of this encounter Care Teams Sprinkler Fitter Helper Relationship Specialty Start Date End Date Radha Bran MD [address] [place] [address] PCP - General Family Medicine 10/16/20 documented as of this encounter
== END 2024-11-24 14:27 | disposition home or self-care (01) ==
LOC: HO.ENCR 13:40
PROVIDERS: PCP Internal Medicine; Visit Provider Registered Nurse Diabetes Educator
DX: E11.9 Type 2 diabetes mellitus without complications (principal)

== ENCOUNTER → 2024-11-24 13:39 | Outpatient (BNVA) | payer OTHER, SELFPAY | PROVIDERS: PCP Internal Medicine; Visit Provider Registered Nurse Diabetes Educator | DX: E11.9 Type 2 diabetes mellitus without complications (principal) | CPT/HCPCS: 99211 ==

== ENCOUNTER 2024-11-30 12:03 | Outpatient (AMB) | payer OTHER, SELFPAY ==
--- NOTE | 2024-11-30 12:45 | MHC.AMDMED ---
Intake Intake Visit Reasons: 30 min Chief Commercial Officer Required: Yes Chief Commercial Officer Language: Back Office Medical Assistant Name: [id number] Accompanied by: Self / Same As Patient Allergies seasonal Allergy (Intermediate, Uncoded 11/03/24 13:17) cough HPI Comprehensive Diabetes Asmnt Most Recent Diabetes Results: Cholesterol 126 mg/dL (<200) 11/09/24 HDL Cholesterol 45 mg/dL (>40) 11/09/24 Triglycerides 98 mg/dL (<150) 11/09/24 Creatinine 0.62 mg/dL (0.5-1.4) 11/09/24 Blood Urea Nitrogen 17 mg/dL (9-16) H 11/09/24 Sodium 142 mmol/L (135-145) 11/09/24 Potassium 3.8 mmol/L (3.3-5.1) 11/09/24 Chloride 111 mmol/L (96-108) H 11/09/24 Carbon Dioxide 25 mmol/L (22-29) 11/09/24 Calcium 8.9 mg/dL (8.4-10.2) 11/09/24 AST 23 U/L (5-31) 11/09/24 ALT 30 U/L (0-31) 11/09/24 Total Protein 7.4 g/dL (6.5-8.0) 11/09/24 Albumin 3.5 g/dL (3.5-5.0) 11/09/24 [facility] Medical History (Updated 11/02/24 @ 13:25 by Breanna Walters NP) Type 2 diabetes mellitus Panic attack Anxiety Obesity due to excess calories Asthma REY (obstructive sleep apnea) Morbid obesity Vitamin D deficiency Obesity Dyslipidemia Hypertension Diabetic polyneuropathy associated with type 2 diabetes mellitus Diabetes type 2, uncontrolled Surgical History Abdominal pain History of carpal tunnel release S/P trigger finger release H/O foot surgery History of dilatation and curettage History of sleeve gastrectomy History of esophagogastroduodenoscopy (EGD) History of eyelid surgery Hx of tubal ligation Hx of colonoscopy Family History Father Type II diabetes mellitus Obesity Mother HTN (hypertension) Brother Cancer Social History Household Members: Spouse Housing: Apartment Do you presently have visiting nurse or other home services: Yes Alcohol intake: never Patient Tobacco Use Status: Former Tobacco user Tobacco use type: Cigarette e-Cigarette/Vaping Use: Never Used service: No Current occupational status: unemployed Current occupation: rt handed Assessment & Plan Assessment & Plan (1) Type 2 diabetes mellitus: Code(s): E11.9 - Type 2 diabetes mellitus without complications Plan: Learning objectives: The patient was provided with verbal and written education on the following topics as outlined below. The patient met all learning objectives and was able to verbalize understanding and provide teach back of education topics discussed . The patient was provided with the opportunity to ask questions and all questions were answered. Patient Assessment Assess patient education level/literacy/barriers, patient at follow-up after starting the CeQur patch, patient did not change patch after 4 days as instructed at last visit. Reinforced that patch needs to be changed every 4 days. Patient has limited CGM data but average glucose for the 3 days of the that is 264 mg/dL. 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 How diet effects glucose Eating 3 balanced meals a day with small, healthy snacks between meals Review food groups Carbohydrates: What is a carbohydrate/Which food/food groups are considered carbohydrates Effect of carbohydrates on blood glucose Portion sizes Reading food labels Basic carb counting (if applicable per nursing assessment) Plate method Meal planning Recommendations: Follow plate method, consistent carbs and read nutritional labels. Smart Goal: Patient will change insulin delivery patch every 4 days as instructed Educational Materials: The patient was provided with the following written educational materials: Planning Healthy Meals Handout Patient Response to instructions: Comprehension of Instructions: Fair Readiness to make changes: Contemplation How confident they feel about making changes: Poor Portions of this note were created using voice recognition software, please excuse any words or phrases that may have been misinterpreted. Patient Instructions: Incluir actividad diaria regular. ADA recomienda 30 minutos de ejercicio 5 d?as a la semana. P?rdida de peso, hable con el PCP o el cardi?logo antes de comenzar un nuevo plan. Mida el nivel de az?car en la marcial seg?n las indicaciones; Ayuno y comida m?s kumar de 2hpp. Observe las tendencias en los resultados. Utilice los resultados y eval?e c?mo los alimentos, la actividad f?fidel y los medicamentos afectan los resultados de az?car en la marcial. Lleve el gluc?metro o CGM a la pr?xima visita. Conocer los medicamentos para la diabetes, arce acci?n, los efectos secundarios, la eficacia, la toxicidad, la dosis prescrita, el momento y la frecuencia de administraci?n apropiados, el efecto de las dosis olvidadas y retrasadas y las instrucciones de almacenamiento, viaje y seguridad. T?cnicas de resoluci?n de problemas para el seguimiento de episodios de hipo/hiperglucemia y tratamientos. Reducir los comportamientos de reducci?n de riesgos, dejar de fumar, ex?menes regulares de ojos, pies y dentales. Humalog 10 unidades = 5 clics por cada comida Coding Level of Care Code Est Pt Level 1 (71652) Diagnoses Type 2 diabetes mellitus E11.9
--- OUTSIDE RECORDS SUMMARY | 2024-11-30 14:35 | XMS_ITS | Encounter Summary ---
Author Organization [employer] Address [address] [facility] 7t [place] [address] Care Team Providers Care Portable Grinding Machine Operator Name Role Phone Radha Bran MD Primary Care Provider + Reason for Visit * Reason Comments Med Refill Encounter Details Date Type Department Care Team (Late st Contact Info) Description 11/30/2024 Refill [facility] [address] [place] [address] Radha Bran MD [address] [place] [address] Type I or II open displaced comminuted fracture of shaft of left tibia with routine healing, subsequent encounter Social History Tobacco Use Types Packs/Day Years [...] 12/15/2024 10:30 AM EDT Office Visit [facility] [address] [place] [address] Radha Bran MD [address] [place] [address] documented as of this encounter Visit Diagnoses Diagnosis Type I or II open displaced comminuted fracture of shaft of left tibia with routine healing, subsequent encounter documented in this encounter Additional Health Concerns Assessment Noted Time PHQ-9 Depression Total Score: 13 024 10:37 AM EST documented as of this encounter Care Teams Portable Grinding Machine Operator Relationship Specialty Start Date End Date Radha Bran MD [address] [place] [id number] PCP - General Family Medicine 10/16/20 documented as of this encounter
--- OUTSIDE RECORDS SUMMARY | 2024-11-30 14:36 | XMS_ITS | Encounter Summary ---
Author Organization [facility] Address [address] [place] [address] 7 [place] [address] Care Team Providers Care Spray Gun Operator Name Role Phone Radha Bran MD Primary Care Provider + Encounter Details Date Type Department Care Team (Late st Contact Info) Description 08/06/2022 Telephone [facility] [address] [place] [address] [phone] Radha Bran MD [address] [place] [address] Social History Tobacco Use Types Packs/Day Years [...] 12/15/2024 10:30 AM EDT Office Visit [facility] [address] [place] [address] Radha Bran MD [address] [place] [address] [phone] documented as of this encounter Visit Diagnoses Not on filedocumented in this encounter Care Teams Spray Gun Operator Relationship Specialty Start Date End Date Radha Bran MD [address] [place] [address] PCP - General Family Medicine 10/16/20 documented as of this encounter
--- OUTSIDE RECORDS SUMMARY | 2024-11-30 14:36 | XMS_ITS | Encounter Summary ---
Author Organization [employer] Address [address] [place] [address] 7 [place] [address] Care Team Providers Care Fashion Coordinator Name Role Phone Radha Bran MD Primary Care Provider + Encounter Details Date Type Department Care Team ([facility] Contact Info) Description 02/09/2023 [facility] Information Management [address] [place] [address] Radha Bran MD [address] [place] [address] Social History Tobacco Use Types Packs/Day Years [...] Upcoming Encounters Date Type Department Care Team ([facility] Contact Info) Description 12/15/2024 10:30 AM EDT Office Visit [facility] [address] [place] [address] Radha Bran MD [address] [place] [address] documented as of this encounter Visit Diagnoses Not on filedocumented in this encounter Care Teams Fashion Coordinator Relationship Specialty Start Date End Date Radha Bran MD [address] [place] [address] PCP - General Family Medicine 10/16/20 documented as of this encounter
--- OUTSIDE RECORDS SUMMARY | 2024-11-30 14:36 | XMS_ITS ---
Author Name Maribel Vann NP Address [address] [place] [address] Phone [phone] [facility] Care Team Providers Care Chief Meteorologist Name Role Phone Maribel Vann Unavailable [phone] [facility] Unavailable [phone] [place], [facility] Unavailable [phone] [facility] Unavailable Unavailable Unavailable [phone] Unavailable Unavailable [phone] [employer] Unavailable [phone] Pedro Mohamud Unavailable [phone] Radha Bran Unavailable Reason for Referral Not Available Allergies, adverse reactions, alerts No known allergies History of medication use Medication Class Instructions Start Date End Date Fluocinolone Acetonide Body 0.01 % Oil APPLY BOTTLE TOPICALLY TO THE AFFECTED AREA IN THE MORNING 2022-08-13 No Data Available B-D KURTIS 2ND GEN PEN NDL 24RE1VIGIL USE TO INJECT FOUR TIMES DAILY 2022-08-28 [...] Data Available 2023-06-03 No D aries Available [employer] Verio Flex System w/Device Kit USE TO [...] time a day 2024-04-21 No Data Available [facility] [place] 0.65 % Solution Nasal 2 sprays intranasally [...] Active 2024-11-24 N/A Other problems related to la dical facilities and other health care Active 2024-05-03 N/A Encounters Encounters Type Facility Date of Service Diagnosis/Co mplaint No Data Available [facility] [place]2023 Morbid (severe) obesity due to excess caloriesBody mass index (BMI) 40.0-44.9, adultType 2 diabetes w unsp diabetic retinopathy w macular edemaMajor depressive disorder, recurrent, mildIron deficiency anemia, unspecifiedUnspecified urinary incontinenceUnspecified asthma, uncomplicatedObstructive sleep apnea (adult) (pediatric)2-part nondisp fx of surg nk of l humer, 7thDEssential (primary) hypertensionHistory of fallingDifficulty in walking, not elsewhere classified No Data Available [facility] [place] 04/09/2023 No [facility] [place] [facility] [place] [facility] Data [facility] [place] No Data Available [facility] [place] [facility] Data [facility] [place] Estab. patient 20-29min; 1 stable chronic or 2 minor; add add modifier 95 for video, modifier 93 for phone [facility] [place] 05[place]06/2023 Type 2 diabetes w [...] 95 for video, modifier 93 for phone [facility] [place] 05/[place]/20[place] Estab. patient 20-29min; 1 stable chronic or 2 minor; add add modifier 95 for video, modifier 93 for phone [facility] [place] Estab. patient 20-29min; 1 stable chronic or 2 minor; add add modifier 95 for video, modifier 93 for phone [facility] [place] [facility]23 No Data [facility] [place]23 History of fallingDifficulty in walking, not elsewhere classified No Data Available [facility] 06/15/2023 No Data Available [facility], [place] 06[place]/2023 History of fallingDifficulty in walking, not elsewhere classifiedPersonal history of (healed) traumatic fracture No Data Available [facility]2023 No Data Available [facility] No Data Available [facility] No Data Available [facility]2023 Difficulty in walking, not elsewhere classifiedHistory of fallingPersonal history of (healed) traumatic fracture No Data Available [facility] Estab. patient 30-39min; chronic exacerbation, 2 stable chronic or 1 acute illness add add modifier 95 for video, (do not use for phone, instead use 44297-25) [facility]23 Morbid (severe) obesity due to excess [...] (do not use for phone, instead use 78661-50) [facility] Estab. patient 30-39min; chronic exacerbation, 2 stable chronic or 1 acute illness add add modifier 95 for video, (do not use for phone, instead use 20936-48) [facility] Estab. patient 30-39min; chronic exacerbation, 2 stable chronic or 1 acute illness add add modifier 95 for video, (do not use for phone, instead use 78246-72) [facility] Estab. patient 30-39min; chronic exacerbation, 2 stable chronic or 1 acute illness add add modifier 95 for video, (do not use for phone, instead use 06526-86) [facility] 07[place]2023 No Data Available [facility] 08[place]/2023 Morbid (severe) obesity due to excess caloriesBariatric surgery statusUnspecified asthma, uncomplicatedHistory of fallingDifficulty in walking, not elsewhere classifiedPersonal history of (healed) traumatic fracture No Data Available [facility] 08[place]/2023 No Data Available [facility] 09/[place]/2023 Urinary tract infection, sit e not specified No Data Available [facility]10[place]2023 Urinary tract infection, sit e not specifiedHistory of fallingDifficulty in walking, not elsewhere classifiedPersonal history of (healed) traumatic fracture No Data Available [facility] 09[place]10[place]2023 Estab. patient 30-39min; chronic exacerbation, 2 stable chronic or 1 acute illness add add modifier 95 for video, (do not use for phone, instead use 86888-91) [facility] 09[place]18[place]2023 Urinary tract infection, sit e not [...] (do not use for phone, instead use 08143-06) [facility]18[place] Estab. patient 30-39min; chronic exacerbation, 2 stable chronic or 1 acute illness add add modifier 95 for video, (do not use for phone, instead use 53186-56) [facility] 09[place]18[place] Estab. patient 30-39min; chronic exacerbation, 2 stable chronic or 1 acute illness add add modifier 95 for video, (do not use for phone, instead use 63697-95) [facility] 09[place]18[place] Estab. patient 30-39min; chronic exacerbation, 2 stable chronic or 1 acute illness add add modifier 95 for video, (do not use for phone, instead use 49520-38) [facility] 09[place]18[place] Estab. patient 30-39min; chronic exacerbation, 2 stable chronic or 1 acute illness add add modifier 95 for video, (do not use for phone, instead use 86534-71) [facility]18[place]23 Estab. patient 30-39min; chronic exacerbation, 2 stable chronic or 1 acute illness add add modifier 95 for video, (do not use for phone, instead use 51412-94) [facility]18[place] Estab. patient 30-39min; chronic exacerbation, 2 stable chronic or 1 acute illness add add modifier 95 for video, (do not use for phone, instead use 23893-93) [facility]18[place] Estab. patient 30-39min; chronic exacerbation, 2 stable chronic or 1 acute illness add add modifier 95 for video, (do not use for phone, instead use 18441-62) [facility] 09[place]18[place]2023 No Data Available [facility] 04[place]2024 Morbid (severe) obesity due to excess caloriesBariatric surgery statusType 2 diabetes w unsp diabetic retinopathy w macular edemaUnspecified urinary incontinenceUnspecified asthma, uncomplicatedObstructive sleep apnea (adult) (pediatric)Essential (primary) hypertensionBody mass index (BMI) 40.0-44.9, adultMajor depressive disorder, recurrent, mildOther problems related to medical facilities and other health careHeadache, unspecifiedOther chronic pain No Data Available [facility]2024 No Data Available [facility] No Data Available [facility] 04/[place]2024 No Data Available [facility] [place] No Data Available [facility] [place]20[place] No Data Available [facility] [place] No Data Available [facility] [place] 05/03/2024 Type 2 diabetes w unsp diabe tic retinopathy w macular edemaAllergic contact dermatitis due to plants, except foodEncounter for other specified aftercareOther problems related to medical facilities and other health careLong term (current) use of insulin No Data Available [facility] [place] 05/03/2024 No Data Available [facility] [place] 08[place]2024 Flu due to unidentified influenza virus w oth resp manifestPersons encountering health services in other specified circumstancesOther problems related to medical facilities and other health care No Data Available [facility] [place] 08/[place]/2024 No Data Available [facility] [place] 08/[place]/20[place] Estab. patient 10-29min; 1 minor problem; add add modifier 95 for video, modifier 93 for phone [facility] [place]/22/2024 Type 2 diabetes w unsp diabe tic retinopathy w macular edemaUnspecified asthma, uncomplicatedObstructive sleep apnea (adult) (pediatric)Body mass index (BMI) 40.0-44.9, adultOther problems related to medical facilities and other health care Estab. patient 10-29min; 1 minor problem; add add modifier 95 for video, modifier 93 for phone [facility] [place]/22/[place] Estab. patient 10-29min; 1 minor problem; add add modifier 95 for video, modifier 93 for phone [facility] [place] 09/22/2024 Estab. patient 10-29min; 1 minor problem; add add modifier 95 for video, modifier 93 for phone [facility] [place] 09/22/2024 Estab. patient 10-29min; 1 minor problem; add add modifier 95 for video, modifier 93 for phone [facility] [place] 10/21/2024 Type 2 diabetes w unsp diabe tic retinopathy w macular edemaOther female genital prolapseUnspecified urinary incontinenceOther problems related to medical facilities and other health care Estab. patient 10-29min; 1 minor problem; add add modifier 95 for video, modifier 93 for phone [facility] [place] Estab. patient 10-29min; 1 minor problem; add add modifier 95 for video, modifier 93 for phone [facility] [place] 11/[place]/2024 Type 2 diabetes w [...] tive Time Current Smoking Status Former smoker 2 Sex Female History of Procedures Procedures Service Procedure code Service date Servicing provider Phone# No Data Available [id number] 2023-04-09 No Data Available No Data Available [...] 95 for video, modifier 93 for phone [id number] 2023-05-06 No Data Available No Data Availa [...] No Data Carli ilable No Data Available [id number] 2023-06-15 No Data Available No Data Available Medication List Documented (1159F) 1159F 2023-06-15 No Data Available No Data Carli ilable No Data Available [id number] 2023-06-16 No Data Available No Data Available Medication List Documented (1159F) 1159F 2023-06-16 No Data Available No Data Carli ilable Pain Assessment - Pain Documented on a Pain Scale (1125F) 1125F 2023-06-16 No Data Available No Data Carli ilable BMI obtained (3008F) 3008F 2023-06-16 No Data Availab le No Data Available No Data Available [id number] 2023-07-08 No Data Available No Data Available Medication List Documented (1159F) 1159F 2023-07-08 No Data Available No Data Carli ilable Estab. patient 30-39min; chronic exacerbation, 2 stable chronic or 1 acute illness add add modifier 95 for video, (do not use for phone, instead use 76900-19) [id number] 2023-07-15 No Data Available No Data Availa [...] No Data Carli ilable No Data Available [id number] 2023-08-14 No Data Available No Data Available Medication List Documented (1159F) 1159F 2023-08-14 No Data Available No Data Carli ilable No Data Available [id number] 2023-09-09 No Data Available No Data Available No Data Available [id number] 2023-09-10 No Data Available No Data Available Medication List Documented (1159F) 1159F 2023-09-10 No Data Available No Data Carli ilable Estab. patient 30-39min; chronic exacerbation, 2 stable chronic or 1 acute illness add add modifier 95 for video, (do not use for phone, instead use 50832-81) 13062 2023-09-18 No Data Available No Data Availa [...] No Data Avail able No Data Available [id number] 2024-04-21 No Data Available No Data Available [...] le No Data Available No Data Available [id number] 2024-05-03 No Data Available No Data Available [...] 95 for video, modifier 93 for phone [id number] 2024-09-22 No Data Available No Data Availa [...] 95 for video, modifier 93 for phone [id number] 2024-10-21 No Data Available No Data Availa ble Medication List Documented (1159F) 1159F 2024-10-21 No Data Available No Data Carli ilable Estab. patient 10-29min; 1 minor problem; add add modifier 95 for video, modifier 93 for phone [id number] 2024-11-24 No Data Available No Data Availa [...] units TID AC meals and FU with functional tester in February,Wears rafaela paduses inhaler Flovent BIDHas [...] units TID AC meals and FU with functional tester in February,Wears rafaela padNeeds chux pads, XL pull-ups, gloves XLuses inhaler Flovent BIDHas CPAP using nightlyContinue lovenox as directedAdvancing home PTencouraged UE activity as toleratedHas not been taking BP medication since surgery 2 months ago on broken footApril 2022 had a bad fall on steps at entrance to home. Fractured L foot, L?knee, L shoulderStill unable to walkUsing wheelchairNow [facility] productsEscitalopramWill think about whether she wants a therapist 2023-06-15 13:39:58 Phone (patient, pare nt, or guardian); 5-10 minutes of medical discussion (no modifier 95)Continue to see PCP. Follow-up with [facility] as needed for any acute or disease education needs that may arise 23/03.November 2022 had a bad fall on steps at entrance to home. Fractured L foot, L?knee, L shoulderStill unable to walkUsing chpchaicvg63/16/2023er son, can only walk very short distances [...] unable to walkUsing wheelchairNow [facility]er son, can only walk very short [...] and we need videocall. Tablet needs a application security engineer, will send and schedule videocall for [...] unable to walkUsing wheelchairNow [facility]06/[facility]23er son, can only walk very short [...] to PT but after she returns from [place] in [facility].Can start in October. 2023-08-14 12:38:06 Phone (patient, [...] unable to walkUsing wheelchairNow [facility]06/15/2023er son, can only walk very short [...] and we need videocall. Tablet needs a application security engineer, will send and schedule videocall for [...] 09/10/2023t has not yet gone to picker packer prescription. Feels about the same. Education [...] documented (1126F)Continue to see PCP. Follow-up with [facility] as needed for any acute or disease education needs that may arise.09/09/23: Malodorous dark urine, Left flank painWill start nitrofurantoin.Increase water and rest.Tylenol.F/U with MA[facility]EN[facility] 09/10/23.UPDATE 4Pt has not yet gone to picker packer prescription. Feels about the same. Education [...] unable to walkUsing wheelchairNow having [facility]3Per son, can only walk very short [...] and we need videocall. Tablet needs a application security engineer, will send and schedule videocall for [...] units TID AC meals and FU with functional tester Reports stableWears rafaela padNeeds chux pads, XL pull-ups, gloves XLuses inhaler Flovent BIDHas CPAP using nightlyContinue lovenox as directedAdvancing home PTencouraged UE activity as toleratedHas not been taking BP medication aftersurgery on broken footUPDATE 4Reports compliance nowApril 2022 had a bad fall on steps at entrance to home. Fractured L lower leg, L shoulderStill unable to walkUsing wheelchairNow [facility]23er son, can only walk very short [...] and we need videocall. Tablet needs a application security engineer, will send and schedule videocall for [...] 09/10/2023t has not yet gone to picker packer prescription. Feels about the same. Education [...] individual diagnosis for contingency plan.previously diagnosed 01/20/23 [facility] painstable 2024-04-21 09:19:41 Phone (patient, pare [...] units TID AC meals and FU with functional tester Reports stableWears rafaela padNeeds chux pads, XL [...] modifier 95)Continue to see PCP. [facility] or disease [...] units TID AC meals and FU with functional tester Reports stable09/22/24feels well, denies hypo/hyperglycemic episodescontinues to use CGM and insulin pump A1c 6.9 05/24/24uses inhaler Flovent BIDuses nebulizer 09/22/24denies SOBHas CPAP using nightlyCOPD CONTINGENCY PLANLast updated: 09/22/2024[facility] to call for the following symptoms: Increased [...] supplies ordered 2 months ago by [facility], but has not received yet. [...] continues recommend decreasing lantusDIABETES CONTINGENCY PLANLast updated: 10/21/2024[facility] to call for the following symptoms: Blood [...] Flovent BIDuses nebulizer 11/24/24denies SOBpreviously diagnosed 01/20/23 [facility] painstablewill f/u with Rheum 11/2024Vitamin D [...]
--- OUTSIDE RECORDS SUMMARY | 2024-11-30 14:36 | XMS_ITS | Encounter Summary ---
Author Organization [employer] Address [address] [place] [address] Care Team Providers Care Blender / Cook Name Role Phone Radha Bran MD Primary Care Provider + Reason for Visit * Reason Onset Date Comments Durable Medical Equipment 10/08/2023 Encounter Details Date Type Department Care Team ([facility] st Contact Info) Description 10/08/2023 Telephone [facility] [address] [place] [address] Radha Bran MD [address] [place] [address] Durable Medical Equipment Social History Tobacco Use [...] if any questions contact Bunny Sow at [phone]. documented in this encounter Plan of Treatment Upcoming Encounters Date Type Department Care Team (Late st Contact Info) Description 12/15/2024 10:30 AM EDT Office Visit [facility] [address] [place] [address] Radha Bran MD [address] [place] [address] documented as of this encounter Visit Diagnoses Not on filedocumented in this encounter Care Teams Blender / Cook Relationship Specialty Start Date End Date Radha Bran MD [address] [place] [id number] PCP - General Family Medicine 10/16/20 documented as of this encounter
--- OUTSIDE RECORDS SUMMARY | 2024-11-30 14:36 | XMS_ITS | Clinical Summary ---
Author Organization [employer] Address [address] [place] [address] Care Team Providers Care Boat Builder And Repairer Name Role Phone Dominick Bran MD Primary [...] Active Blood Pressure Monitoring (Blood Pressure Cuff) [facility] blood pressure test kit-large cuff USE DIRECTED [...] BEDTIME Active omeprazole (PriLOSEC) [address] capsuleIndicat ions:Gastroeso phageal reflux disease without esophagitis Take 1 capsule (40 mg) by mouth in the morning. Before a meal 30 capsule 11 10/10/19 23 Active Diclofenac Sodium 1 % gel 08/28/20 22 Active CeQur Simplicity 2U device APPLY PATCH DIRECTED 10/02/19 23 Active HumaLOG 100 UNIT/ML injection Inject 8 units TID 10/16/19 23 Active fluticasone (Flonase Allergy Relief) 50 MCG/ACT nasal sprayIndicatio ns:Obstructive sleep apnea syndrome Administer 2 sprays into each nostril in the morning. 16 g 3 01/10/20 23 Active Iron, Ferrous Sulfate, 325 (65 Fe) MG tabletIndicati ons:Other iron deficiency anemia Take 1 tablet by mouth in the morning. 90 tablet 3 01/21/20 23 Active Insulin Glargine Solostar 100 UNIT/ML solution pen-injectorIn dications:Type I or II open displaced comminuted fracture of shaft of left tibia with routine healing, subsequent encounter Inject 30 Units under the skin in the morning. Inject 24u/hs (endocrinology refills) 10 mL 3 10/12/19 24 Active acetaminophen (Tylenol) 500 MG tabletIndicati ons:Encounter for preventive health examination,We akness Take 1-2 tablets (500-1,000 mg) by mouth [...] the morning. 30 tablet 11 12/04/19 24 2024 Active BD Pen Needle Nora 2nd Gen 32G X 4 MM misc Use as instructed 100 each 05/04/20 24 Active Polyvinyl Alcohol-Povido ne 5-6 MG/ML solution Administer 2 drops into affected eye(s) 4 times daily. 15 mL 3 05/04/20 24 2024 Active escitalopram (Lexapro) 20 MG tablet TAKE 1 TABLET(20 MG) BY MOUTH EVERY DAY 30 tablet 3 10/03/19 25 Active gabapentin (Neurontin) 100 MG capsuleIndicat ions:Type I or II open displaced comminuted fracture of shaft of left tibia with routine healing, subsequent encounter TAKE 1 CAPSULE(100 MG) BY MOUTH EVERY 12 HOURS 60 capsule 3 12/01/19 25 Active gabapentin (Neurontin) 100 MG capsuleIndicat ions:Type I or II open displaced comminuted fracture of shaft of left tibia with routine healing, subsequent encounter TAKE 1 CAPSULE(100 MG) BY MOUTH EVERY 12 HOURS 60 capsule 3 08/08/20 24 2024 Discontinued Active Problems Problem Noted Date Diagnosed Date [...] daily 1 more week. Will refer to [facility] for assistance to move to a housing [...] intervention , [facility], Comply with medication , Patient to engage in OP therapy , Patient to reach out to [facility] as needed, and Patient to follow-up with [...] better controlled She has an appointment w/ lathmaker in the next 2 wks Continue Humalog + Lantus 24 units + Mounjaro Counseled re more frequent low calorie/carb meals. Check fgstk daily Encouraged physical activity as tolerated. FU w/ lathmaker Assessment & Plan (10/12/2023 2:48 PM EST): [...] units TID AC meals and FU with lathmaker in February, she will fu with me in 12 weeks Assessment & Plan (01/09/2023 11:10 AM EDT): Uncontrolled. Increase Lantus to 30 units per day and no other medication changes, follow up with lathmaker. Assessment & Plan (09/24/2022 10:50 AM EST): Uncontrolled. A1C is worse than last month. Most likely related to acute URI at this time. No change in medications, FU closely with lathmaker. COVID-19 09/24/2022 Assessment & Plan (09/24/2022 10:51 [...] covid test is positive. Lesion of right nikolski kidney 09/24/2022 Assessment & Plan (09/24/2022 10:53 [...] Plan (01/09/2023 11:08 AM EDT): Refer to [facility] /care mangement to assist with moving to [...] she seems to be overdue for Avapro slat pickler. Continue Avapro 75mg and fu with me [...] Encounters Date Type Department Care Team Description 11/30/2024 Refill [facility] [address] [place] [address] Dominick Bran MD Type I or II open displaced comminuted fracture of shaft of left tibia with routine healing, subsequent encounter 11/16/2024 Telephone [facility] [address] [place] [address] Dominick Bran MD Results 11/16/2024 Orders Only [address] [address] Malia Franklin MD Positive DOMINICK (antinuclear antibody) (Primary Dx); Fatigue, unspecified type 11/11/[address] [address] Maddie Maurer, RN Results 11/09/2024 Orders Only GENERIC EXTERNAL DATA DEPARTMENT Provider, Generic External Data 11/03/2024 2:45 PM EST Office Visit [address] [address] Malia Franklin MD Palpitation (Primary Dx); SOB (shortness of breath) on exertion; Chronic fatigue 11/03/2024 Travel 11/03/[address] [address] Dominick Bran MD Nurse Triage 11/02/[address] [address] Dominick Bran MD Chart Prep 11/02/2024 Orders Only GENERIC EXTERNAL DATA DEPARTMENT Provider, Generic External Data 10/01/[address] [address] Dominick Bran MD 09/21/2024 Orders Only GENERIC EXTERNAL DATA DEPARTMENT Provider, Generic External Data 09/08/[address] [address] Dominick Bran MD Durable Medical Equipment 09/06/[address] [phone] Dominick Bran MD Durable Medical Equipment from Last [...] Description 12/15/2024 10:30 AM EDT Office Visit [facility] [address] [place] [address] Dominick Bran MD [address] [place] [address] Health Maintenance Due Date Last Done Comments [...] Additional history exists Zoster Vaccines Completed 06/26/2022, 100 12/2019, 09/10/2015 Hepatitis C Screening Completed 11/09/2024 [...] 8:02 AM EDT) Creatinine, Urine 265.18 mg/dL [facility] Protein, Total, Random Urine 61(H) <12 mg/dL [facility] Protein/Creati nine Ratio, Ur 0.23(H) <0.2 [facility] Comment:The spot urine prote in:creatinine ratio may increase to 0.3during normal . 11/09/2024 8:02 AM EDT 11/09/2024 8:20 AM EDT us Generic External Data Provider LAB URINE ORDERAB LES Final Result Performing Organization Address City/[facility]/ZIP Co de Phone Number [facility] [address] [place] [address] [phone] * (ABNORMAL) Vitamin D, 25-Hydroxy, Total, Immunoassay (11/09/2024 8:00 AM EDT) Vitamin D 25-OH Total 19.7(L) >30 ng/mL [facility] Comment: Health Based Reference Values*< 20 ??ng/mL ??Dkjtwnuhr12-63 ng/mL ??Insufficient> 30 ??ng/mL ??Sufficient*Taras SUAZO. N [...] BLOOD ORDERABLES Final Result Performing Organization Address [facility]/ZIP Co de Phone Number [facility] [address] [place] [address] [phone] * Vitamin B12/Folate, Serum Panel (11/09/2024 8:00 AM EDT) Pathologist [facility] [place] Vitamin B12 525 200 - 900 pg/mL [facility] Comment:NORMAL 200-900 PG/ML INDETERMINATE 160-199 PG/ML DEFICIENT < 160 PG/ML Folate 9.0 > or = 4.0 ng/mL [facility] Comment:Reference Values:> o r = [...] BLOOD ORDERABLES Final Result Performing Organization Address [facility]/ZIP Co de Phone Number [facility] [address] [place] [phone] * TSH with Reflex to Free T4 (11/09/2024 8:00 AM EDT) [facility] TSH reflex Free T4 3.69 0.32 - 4.0 uIU/mL [facility] Blood Venous blood specimen / Unknown 11/09/2024 8:00 AM EDT 11/09/2024 8:11 AM EDT us Malia Hall MD LAB BLOOD ORDERABLES Final Result Performing Organization Address City/[facility]/ZIP Co de Phone Number [facility] [address] [place] [phone] * (ABNORMAL) CBC auto differential (11/09/2024 8:00 AM EDT) [facility] White Blood Count 6.7 4.8 - 10.8 X10*3/uL [facility] Red Blood Count 4.71 4.20 - 5.50 X10*6/uL [facility] Hemoglobin 13.4 12.0 - 16.0 g/dl [facility] Hematocrit 39.8 37.0 - 47.0 % [facility] Mean Corpuscular Volume 84.5 80.0 - 98.0 fL [facility] Mean Corpuscular Hemoglobin 28.5 27.0 - 33.0 pg [facility] Mean Corpuscular HGB Conc 33.7 31.0 - 35.0 g/dl [facility] Red Cell Distribution Width 13.4 11.0 - 16.0 % [facility] Platelet Count 199 160 - 400 X10*3/uL [facility] Mean Platelet Volume 11.4 9.4 - 12.3 fL [facility] Neutrophils Percent Auto 57.9 45 - 73 % [facility] Imm Gran Pct Auto 0.5(H) 0.0 - 0.4 % [facility] Lymphocytes Percent Auto 32.6 20 - 40 % [facility] Monocytes Percent Auto 6.9 2 - 11 % [facility] Eosinophils Percent Auto 1.8 0 - 4 % [facility] Basophils Percent Auto 0.3 0 - 2 % [facility] NRBC Pct Auto 0.0 0.0 - 0.2 /100WBC [facility] Neutrophils Absolute Auto 3.9 2.0 - 8.3 x10*3/uL [facility] Imm Gran Abs Auto 0.03 0.00 - 0.03 X10*3/uL [facility] Lymphocytes Absolute Auto 2.2 1.2 - 4.9 X10*3/uL [facility] Monocytes Absolute Auto 0.5 0.1 - 1.2 X10*3/uL [facility] Eosinophils Absolute Auto 0.1 0.0 - 0.4 X10*3/uL [facility] Basophils Absolute Auto 0.0 0.0 - 0.2 X10*3/uL [facility] NRBC Abs Auto 0.000 0.0 - 0.012 X10*3/uL [facility] Blood Venous blood specimen / Unknown 11/09/2024 8:00 AM EDT 11/09/2024 8:11 AM EDT us Malia Hall MD LAB BLOOD ORDERABLES Final Result Performing Organization Address [facility] Co de Phone Number [facility] [address] [place] [phone] * Hepatitis C Antibody with Reflex to HCV, RNA, Quantitative, Real-Time PCR (11/09/2024 8:00 AM EDT) Pathologist [facility] [place] Hepatitis C Antibody Nonreactive Nonreactive [facility] Comment:Antibodies to HCV no t detected; does not exclude early acuteHCV infection. Blood Venous blood specimen / Unknown 11/09/2024 8:00 AM EDT 11/09/2024 8:11 AM EDT us Malia Hall MD LAB BLOOD ORDERABLES Final Result Performing Organization Address [facility] de Phone Number [facility] [address] [place] [phone] * Cyclic Citrullinated Peptide (CCP) Antibody (IgG) (11/09/2024 8:00 AM EDT) Pathologist [facility] [place] Cyclic Citrullinated Peptide <16 UNITS [facility] Comment:Reference RangeNegat maggie: <20Weak Positive: 20-39Moderate Positive: 40-59Strong Positive: >59THIS TEST WAS PERFORMED AT:[employer] [address] [id number] WEINSTEIN MD Blood Venous blood specimen / Unknown 11/09/2024 8:00 AM EDT 11/09/2024 8:11 AM EDT us Malia Hall MD LAB BLOOD ORDERABLES Final Result Performing Organization Address [facility] Co de Phone Number [facility] [address] [place] [phone] * Iron And Total Iron Binding Capacity (11/09/2024 8:00 AM EDT) Iron 51 30 - 160 mcg/dL [facility] Total Iron Binding Capacity 267 228 - 428 mcg/dL [facility] Percent Iron Saturation 19 15 - 50 % [facility] Unsaturated Iron Binding 216 ug/dL [facility] Blood Venous blood specimen / Unknown 11/09/2024 8:00 AM EDT 11/09/2024 8:11 AM EDT us Malia Hall MD LAB BLOOD ORDERABLES Final Result Performing Organization Address [facility] Co de Phone Number [facility] [address] [place] [phone] * HIV-1/2 Antigen and Antibodies, Fourth Generation, with Reflexes (11/09/2024 8:00 AM EDT) Pathologist [facility] [place] HIV AB/AG Nonreactive Nonreactive [facility] Comment:HIV-1 p24 Ag and/or HIV-1/HIV-2 Ab not detected.A test result that is nonreactive does not exclude thepossibility of exposure to or infection with HIV-1 and/orHIV-2. Nonreactive results in this assay for individualswith prior exposure to HIV-1 and/or HIV-2 may be due toantigen and antibody levels that are below the limit ofdetection of this assay.The [employer] HIV Ag/Ab Combo assay result andsupplemental assay results should be interpreted inconjunction with the patient's clinical presentation,history and other laboratory results. If the results areinconsistent with clinical evidence, additional testing issuggested to confirm the result. Blood Venous blood specimen / Unknown 11/09/2024 8:00 AM EDT 11/09/2024 8:11 AM EDT us Malia Hall MD LAB BLOOD ORDERABLES Final Result Performing Organization Address City/[facility]/ZIP Co de Phone Number [facility] [address] [place] [phone] * (ABNORMAL) Sed Rate by Modified Westergren (11/09/2024 8:00 AM EDT) Pathologist [facility] [place] Erythrocyte Sedimentation Rate 27(H) 0 - 20 MM/HR [facility] Comment:Patients with polycy themia and many hemoglobin abnormalitiesmay have depressed sed rates whereas patients with anemiamay have elevated sed rates. Blood Venous blood specimen / Unknown 11/09/2024 8:00 AM EDT 11/09/2024 8:11 AM EDT Malia Hall MD LAB BLOOD ORDERABLES Final Result Performing Organization Address [facility] Co de Phone Number [facility] [address] [place] [phone] * (ABNORMAL) C-reactive Protein (11/09/2024 8:00 AM EDT) Pathologist [facility] [place] C Reactive Protein 0.85(H) < or = 0.50 mg/dL [facility] Blood Venous blood specimen / Unknown 11/09/2024 8:00 AM EDT 11/09/2024 8:11 AM EDT us Malia Hall MD LAB BLOOD ORDERABLES Final Result Performing Organization Address City/[facility]/ZIP Co de Phone Number [facility] [address] [place] [phone] * (ABNORMAL) DOMINICK Screen,IFA, with Reflex to Titer and Pattern (11/09/2024 8:00 AM EDT) Pathologist [facility] [place] Anti Nuclear Antibody Screen POSITIVE (A) NEGATIVE [facility] Comment:DOMINICK IFA is a first l ine screen for detecting thepresence of up to approximately 150 autoantibodies invarious autoimmune diseases. A positive DOMINICK IFA resultis suggestive of autoimmune disease and reflexes totiter and pattern. Further laboratory testing may beconsidered if clinically indicated.For additional information, please refer tohttp://education.[employer].com/faq/BGG280(This link is being provided for informational/educational purposes only.) DOMINICK Titer 1:40(A) titer [facility] Comment:A low level DOMINICK tite r may be present in pre-clinicalautoimmune diseases and normal individuals. Reference Range <1:40 Negative 1:40-1:80 Low Antibody Level >1:80 Elevated Antibody Level DOMINICK Pattern Nuclear, Speckled (A) [facility] Comment:Speckled pattern is associated with mixed connectivetissue disease (MCTD), systemic lupus erythematosus(SLE), Sjogren's syndrome, dermatomyositis, andsystemic sclerosis/polymyositis overlap.AC-2,4,5,29: SpeckledInternational Consensus on DOMINICK Patterns(https://doi.org/10.1515/okgj-6697-2655)THIS TEST WAS PERFORMED AT:[facility] [place] [id number] WEINSTEIN MD DOMINICK TITER 2 (REF LAB) [facility] DOMINICK [facility] 2 [facility] DOM[facility]ICK TITER 3 [facility] DOMINICK PATTERN 3 [facility] Blood Venous blood specimen / Unknown 11/09/2024 8:00 AM EDT 11/09/2024 8:11 AM EDT us Malia Hall MD LAB BLOOD ORDERABLES Final Result [facility] [address] [place] [phone] * (ABNORMAL) BUN (Blood Urea Nitrogen) (11/09/2024 8:00 AM EDT) Urea Nitrogen (BUN) 18(H) 9 - 16 mg/dL [facility] 11/09/2024 8:00 AM EDT 11/09/2024 8:11 AM EDT us Generic External Data Provider LAB BLOOD ORDERAB LES Final Result Performing Organization Address City/[facility]/ZIP Co de Phone Number [facility] [address] [place] [phone] * Ferritin (11/09/2024 8:00 AM EDT) Ferritin 36 10 - 250 ng/mL [facility] Blood Venous blood specimen / Unknown 11/09/2024 8:00 AM EDT 11/09/2024 8:11 AM EDT us Malia Hall MD LAB BLOOD ORDERABLES Final Result Performing Organization Address [facility] Co de Phone Number [facility] [address] [place] [phone] * Lipid Panel, Standard (11/09/2024 8:00 AM EDT) Triglycerides 98 <150 mg/dL [facility] Comment:Desirable Triglyceri de: less than 150 mg/dLBorderline High Triglyceride 150-199 mg/dLHigh Triglyceride: 200-499 mg/dLVery High Triglyceride: greater than or equal to 5OO mg/dL Cholesterol 126 <200 mg/dL [facility] Comment:Desirable Cholestero l: less than 200 mg/dLBorderline High Cholesterol: 200-239 mg/dLHigh Cholesterol: greater than 239 mg/dL LDL Cholesterol Calculated 62 <100 mg/dL [facility] Comment:Desirable LDL: less than 100 mg/dLNear Optimal/Above Optimal LDL: 110- 129 mg/dLBorderline High LDL: 130-159 mg/dLHigh LDL: 160-189 mg/dLVery High LDL: greater than or equal to 190 mg/dL HDL Cholesterol 45 >40 mg/dL [facility] Comment:Desirable HDL: great er than 40 mg/dL Note: This HDL assay may give artificially low results in patients with liver disease. Blood Venous blood specimen / Unknown 11/09/2024 8:00 AM EDT 11/09/2024 8:11 AM EDT us Malia Hall MD LAB BLOOD ORDERABLES Final Result [facility] [address] [place] [phone] [phone] * (ABNORMAL) Comprehensive Metabolic Panel (11/09/2024 8:00 AM EDT) Sodium 142 135 - 145 mmol/L [facility] Potassium 3.8 3.3 - 5.1 mmol/L [facility] Chloride 111(H) 96 - 108 mmol/L [facility] Carbon Dioxide 25 22 - 29 mmol/L [facility] Anion Gap 10(L) 12 - 20 [facility] Urea Nitrogen (BUN) 17(H) 9 - 16 mg/dL [facility] Creatinine, Serum 0.62 0.5 - 1.4 mg/dL [facility] Estimated Glomerular Filt Rate >60 [facility] Comment:Chronic Kidney Disea se: Estimated GFR < 60 mL/min/1.45w9Akouou Kidney Disease: Estimated GFR < 15 mL/min/1.73m2 Glucose 134(H) 60 - 115 mg/dL [facility] Calcium 8.9 8.4 - 10.2 mg/dL [facility] Bilirubin, Total 0.3 0.0 - 1.0 mg/dL [facility] Aspartate Amino Transferase 23 5 - 31 U/L [facility] Alanine Aminotransferase 30 0 - 31 U/L [facility] Total Protein 7.4 6.5 - 8.0 g/dL [facility] Albumin Level 3.5 3.5 - 5.0 g/dL [facility] Alkaline Phosphatase 62 39 - 117 U/L [facility] Blood Venous blood specimen / Unknown 11/09/2024 8:00 AM EDT 11/09/2024 8:11 AM EDT us Malia Hall MD LAB BLOOD ORDERABLES Final Result [facility] [address] [place] [phone] * (ABNORMAL) Glucose, Whole Blood (11/02/2024 1:25 PM EST) Only the most recent of2 resultswithin the time period is included. Glucose, Whole Blood 145(H) 60 - 115 mg/dL [facility] Comment:METER #: [id number] Testing performed in the Endocrinology Department [address] , [address], [facility]. 11/02/2024 1:25 PM EST 11/02/2024 1:30 PM EST us Generic External Data Provider LAB BLOOD ORDERAB LES Final Result Performing Organization Address City/[facility]/ZIP Co de Phone Number [facility] [address] [place] [phone] * (ABNORMAL) Hemoglobin A1c (05/24/2024 11:53 AM EDT) Hemoglobin A1c 6.9(H) <6.0 % [facility] Comment:Hemoglobin A1C Refer ence Range Adults: 4.8 - 6.0 % Non diabetic: < 6.0 % Goal: < 7.0 %Additional Action Suggested: > 8.0 %Note: Hemoglobin A1c results are invalid for patients with abnormal amounts of HbF. Blood transfusions may impact the HbA1c concentration in the patient sample. Estimated Average Glucose 151 mg/dL [facility] Comment:eAG = Estimated ave rage glucose which is %A1C expressed asaverage glucose, using the formula of the C2N-VubxgoaOssgqcg Glucose study (ADAG), Diabetes Care, Vol.31,#8,2007 05/24/2024 11:5 3 AM EDT 05/24/2024 11:53 AM EDT us Generic External Data Provider LAB BLOOD ORDERAB LES Final Result Performing Organization Address City/[facility]/ZIP Co de Phone Number [facility] [address] [place] [phone] * Mammography (11/26/2021) Mammogram performed Anatomical Region Laterality Modality Other Historical Provider HEALTH MAINTENANCE Final Result * Colonoscopy (10/04/2019) Colonoscopy performed Historical Provider HEALTH MAINTENANCE Edited Result - Final from Last 3 Months or Most Recently Relevant to Health Maintenance Insurance [facility] - [facility] Care Teams Boat Builder And Repairer Relationship Specialty Start Date End Date Dominick Bran MD [address] [place] [address] [place] [phone] PCP - General Family Medicine 10/16/20
--- OUTSIDE RECORDS SUMMARY | 2024-11-30 14:36 | XMS_ITS | Encounter Summary ---
Author Organization [employer] [facility] Address [address] [place] [address] [address] [place] [address] Care Team Providers Care Sports Book Writer Name Role Phone Radha Bran MD Primary Care Provider + Encounter Details Date Type Department Care Team (Late st Contact Info) Description 07/28/2022 Abstract [facility] [address] [place] [phone] ProviderBritany MD Social History Tobacco Use Types [...] Description 12/15/2024 10:30 AM EDT Office Visit [facility] [address] [place] [address] Radha Bran MD [address] [place] [address] documented as of this encounter Visit Diagnoses Not on filedocumented in this encounter Care Teams Sports Book Writer Relationship Specialty Start Date End Date Radha Bran MD [address] [place] [phone] PCP - General Family Medicine 10/16/20 documented as of this encounter
--- OUTSIDE RECORDS SUMMARY | 2024-11-30 14:36 | XMS_ITS | Encounter Summary ---
Author Organization [employer] Address [address] [facility] [address] [place] [address] Care Team Providers Care Screen Printing Supervisor Name Role Phone Radha Bran MD Primary Care Provider + Encounter Details Date Type Department Care Team ([facility] st Contact Info) Description 08/25/2024 Orders Only [facility] [address] [place] [address] Radha Bran MD [address] [place] [address] Social History Tobacco Use Types Packs/Day Years [...] Visit [facility] [address] [place] [phone] Radha Bran MD [address] [place] [phone] documented as of this encounter Visit Diagnoses Not on filedocumented in this encounter Additional Health Concerns Assessment Noted Time PHQ-9 Depression Total Score: 13 024 10:37 AM EST documented as of this encounter Care Teams Screen Printing Supervisor Relationship Specialty Start Date End Date Radha Bran MD [address] [place] [phone] PCP - General Family Medicine 10/16/20 documented as of this encounter
--- OUTSIDE RECORDS SUMMARY | 2024-11-30 14:36 | XMS_ITS | Encounter Summary ---
Author Organization [employer] Address [address] [place] [address] 7 [place] [address] Care Team Providers Care Microbiology Quality Control Technician Name Role Phone Radha Bran MD Primary Care Provider + Reason for Visit * Reason Onset Date Comments Letter for School/Work 10/16/2022 Encounter Details Date Type Department Care Team ([facility] st Contact Info) Description 10/16/2022 Telephone [facility] [address] [place] [address] Radha Bran MD [address] [place] [address] Letter for School/Work Social History Tobacco Use [...] Description 12/15/2024 10:30 AM EDT Office Visit [facility] [address] [place], [place] [phone] Radha Bran MD [address] [place] [address] documented as of this encounter Visit Diagnoses Not on filedocumented in this encounter Care Teams Microbiology Quality Control Technician Relationship Specialty Start Date End Date Radha Bran MD [address] [place], [place] [phone] PCP - General Family Medicine 10/16/20 documented as of this encounter
--- OUTSIDE RECORDS SUMMARY | 2024-11-30 14:36 | XMS_ITS | Data Portability ---
Author Organization [facility] [place] - [facility] Address [address] [place] [phone] Care Team Providers Care Cattery Operator Name Role Phone [facility] Referring Provider [facility] Referring Provider Assessment Encounter Date Assessment Date Assessment LastModified by Organization Details LastModified Time 03/17/2022 03/17/2022 I have reviewed and agree with the Assessment and Plan as documented by the Farm Equipment Mechanic Apprentice. I provided real -time medical direction via [...] go to the ER- report called to [facility] [email or web address] Not available 03/18/2022 21:31:13 Plan of Treatment Reminders Order Date Submit Date Provider Last Modified By Organization Details Last Modified Time Details Appointments None recorded. Lab None recorded. Referral None recorded. Procedures None recorded. Surgeries None recorded. Imaging electrocard iogram 2021 022 [email or web address] 0 [facility], [address] [place] [address], [phone], 21:32:45 Medication Orders None recorded. Patient TargetsNo targets recorded. Patient InstructionsNo instructions recorded. Reason for Referral None Reported. Results Created Date Observation Date Name Description Value Unit Range Abnormal Flag Note LastModifiedBy Organization Detail LastModifiedTime 03/18/20 22 03/18/2022 elect doug [email or web address] am No observ ation record ed. [address], [phone], 03/18/2022 21:32:33 Result Notes None recorded. Procedures Surgical History None recorded. Imaging Results Imaging Date Name Status LastModified by Organization Details LastModified Time 03/18/2022 electrocardiogram completed [email or web address] [address], [place], [phone], 03/18/2022 21:32:33 Procedure Notes None recorded. Medical [...] Address Organization Details Last Updated DateTime 2 164426. 2 g 157.48 cm 97.8 [degF] 97 [...] 2768 Chelsea Hernandez MD Main - [facility] [address] [place] [phone] 03/17/2022 16:53:01 05/13/2022 21:10:03 Chest pain 36900820 R07.9 Health Concerns Section Related Observation LastModified [...] (MEDICARE REPLACEMENT/ADV ANTAGE - HMO) Halley Ramon [id number] Halley Ramon Notes Date Note Type Note [...] ................... ................... ................... ................... ................... ................... ........ Farm Equipment Mechanic Apprentice Note: Sent to a call for a pt complaining of chest pain and sob. [facility] arrives on scene, pt arrives home in a van. Pt is alert and oriented. Airway is patent. Wine And Spirits Clerk line used for communication as pt's primary language is [place]. Pt complains of left lateral neck pain [...] dizziness, n/v/d, abd pain, fever/chills or loc. [facility] orders 12 lead ECG. [facility] advises pt to be transported to ED for further evaluation/treatmen t. Pt agrees. Pt care is transferred to [facility]. Pt transported to [facility]. ................... ................... ................... ................... ................... ................... ................... ........ Disposition: FulfilledSEGMD- as above-Pat seen at [facility] 03/06/22- was having neck pain and headache at the time-denied having CP or telling staff she had CP.- that started more recently. She finished the antibiotics- was also given albuterol, but she did not use it as it was making her nervous/ shakey//has minimal cough- clear phlegm. She reports she sees a desulphuring operator, but does not know her cardiac dx. Has hx obesity/ DM/ HTN/REY / panic d/o per old record. Quit smoking > 35 yrs ago- pat reports no known family hx CAD. Chelsea Hernandez MD [address] [facility],[address], [place], [phone], [employer] 03/18/2022 21:32:58 OBGyn Episode No OBEpisode recorded.
== END 2024-11-30 12:55 | disposition home or self-care (01) ==
LOC: HO.ENCR 12:03
PROVIDERS: PCP Internal Medicine; Visit Provider Registered Nurse Diabetes Educator
DX: E11.9 Type 2 diabetes mellitus without complications (principal)

== ENCOUNTER → 2024-11-30 12:03 | Outpatient (BNVA) | payer OTHER, SELFPAY | PROVIDERS: PCP Internal Medicine; Visit Provider Registered Nurse Diabetes Educator | DX: E11.9 Type 2 diabetes mellitus without complications (principal) | CPT/HCPCS: 99211 ==

== ENCOUNTER 2024-12-08 09:28 | Outpatient (AMB) | payer OTHER, SELFPAY ==
[2024-12-08 09:38] VITALS: BP 134/72; PULSE 74; O2SAT 96; BMI 43.5
--- NOTE | 2024-12-08 09:38 | A.OFFVIS_ITS ---
Vital Signs 12/08/24 09:38 Height 5 ft 2 in Weight 238 lb 1.588 oz BMI 43.5 BP 134/72 Blood Pressure Location Rt brachial Position Sitting Pulse 74 Pulse Source Pulse Oximeter Pulse Oximetry (%) 96 Oxygen Delivery Method Room Air Intake Visit Reasons: rey Allergies seasonal Allergy (Intermediate, Uncoded 11/03/24 13:17) cough HPI Comments Details: The patient is a 74-year-old woman with a known history of obstructive sleep apnea previously on CPAP in addition to asthma. The patient overall has been complaining of increasing daytime drowsiness. She also complains of headaches. She has significant snoring and sometimes wakes her up from a sound sleep. The patient initially had CPAP. However, she was not getting used to the machine and the mask. Therefore she stopped it. Now she has had increased cardiovascular risk factors including have consider anemia hypertension diabetes and she is concerning that her daytime drowsiness is getting worse. Therefore this time the patient needs to undergo a repeat sleep study in order to get air situated with CPAP again. In the meantime she also has diagnosis of asthma. She does have a rescue inhaler that she seldom uses. She also uses Breo daily. 08/05/2021 the patient is here for a pulmonary follow-up visit. The patient overall has been doing Well. She continues to have daytime drowsiness with an elevated [place] score of 10/24. She did undergo a home sleep study. Her AHI was up to 15. She had significant apneic episodes max duration was 90 seconds. She also had some did saturations during the apneic episodes. The patient needs to start CPAP therapy at this time. Will make arrangements to start APAP with local [employer] company at this time. In the meantime she continues to use her rescue inhaler as needed. She has not required the Advair. Otherwise patient is without any other complaints. 05/18/2023 the patient is here for a pulmonary follow-up visit. The patient has been lost to follow-up. The patient was last seen back in 2020 and she did have moderate degree of sleep apnea. The patient was started on CPAP. The CPAP actually has been very affecting beneficial. She has a hard time being without it. She does use it for more than 4 hours a night. But at some point she started getting supplies primarily because she probably did follow-up in the office although I am sure she still active with the [employer] company, [employer]. I did reach out to [employer] so they can not give me additional information. I will send a script out to [employer] to make sure that she gets reactivated and get supplies in order for her to continue using the CPAP safely. In the meantime she does have the P 10 nasal pillows which she likes. I do not have a pillow available so therefore I did provide her with a N30i SW mask, which she felt very comfortable with. Therefore she will try this mass and I will also request from the [employer] company. In the meantime she also has a sister asthma. She has been stable. She has not had to use her rescue inhaler. She has not had any flare- ups and has not use any prednisone either. Overall the patient is doing well from that standpoint. Therefore will have to just get a situated with CPAP. Will make sure she has a her refills. If the patient is not active with the [employer] company explained to her that she may need to undergo a repeat sleep study. 06/02/2024 the patient is here for a pulmonary follow-up visit. Overall the patient has been doing well. She has been using CPAP every night. CPAP therapy has been affecting beneficial. She does use the nasal pillows. Although, she does not feel like it is working as well now. Can not get any information from the machine. Likely not able to download any information. Therefore I will request a replacement machine from her current [employer] company. From a respiratory status she is doing well. She still has dyspnea on exertion. The patient has been working with her weight and trying to exercise and lose weight. Although is very hard for her. She does take allergy medication. She has a rescue inhaler but she has not required. 12/08/2024 the patient is here for a pulmonary follow-up visit. Overall the patient is doing well. She has been using her CPAP every night. The CPAP therapy has been affecting beneficial. She does use it for more than 4 hours a night. She feels like her new machine was taken back and she has an older machine. Although she did bring her APAP machine which is an AirSense 11. I did reassure her that this is a new his machine out there. She does use the nasal pillows in the do work well for her. She does use tap water explained to her that this is not good for machine offer her help. And she needs to get distilled water. I also gave instructions and had a cleaning machine effectively. The patient does complaint of the high pressures. Therefore switched machine from 6-60 6-12. Her average pressure is closer to 9. The patient continues uses CPAP. As far as her asthma seems to be stable. She does have a rescue inhaler that she has not required. Patient follow-up in a year's time. [facility] Medical History (Updated 12/08/24 @ 20:47 by Paolo Ridley MD) Type 2 diabetes mellitus Panic attack Anxiety Obesity due to excess calories Asthma REY (obstructive sleep apnea) Morbid obesity Vitamin D deficiency Obesity Dyslipidemia Hypertension Diabetic polyneuropathy associated with type 2 diabetes mellitus Diabetes type 2, uncontrolled Surgical History Abdominal pain History of carpal tunnel release S/P trigger finger release H/O foot surgery History of dilatation and curettage History of sleeve gastrectomy History of esophagogastroduodenoscopy (EGD) History of eyelid surgery Hx of tubal ligation Hx of colonoscopy Family History Father Type II diabetes mellitus Obesity Mother HTN (hypertension) Brother Cancer Social History Household Members: Spouse Housing: Apartment Do you presently have visiting nurse or other home services: Yes Alcohol intake: never Patient Tobacco Use Status: Former Tobacco user Tobacco use type: Cigarette e-Cigarette/Vaping Use: Never Used service: No Current occupational status: unemployed Current occupation: rt handed Review of Systems Const Reports daytime sleepiness, Denies night sweats and Reports weight gain ENT Denies change in voice, Denies lip swelling, Denies mouth pain, Reports nasal congestion, Reports nasal discharge and Denies tongue swelling Card Denies chest pain and Reports dyspnea on exertion Resp Reports cough, Reports dyspnea on exertion and Reports wheezing GI Denies abdominal pain Musc Denies no additional complaints Neuro Denies Neuro-related abnormal movements Psych Denies no additional complaints Luis Miguel/Lymph Denies easy bleeding and Denies lymphadenopathy Aller/Immun Denies lip swelling, Denies tongue swelling and Reports wheezing Physical Exam Vital Signs: Last Vital Signs Pulse 74 12/08/24 09:38 BP 134/72 12/08/24 09:38 Pulse Ox 96 12/08/24 09:38 Oxygen Delivery Method Room Air 12/08/24 09:38 BMI result Body Mass Index 43.5 Const General: alert Neck Neck: Yes normal visual inspection, Yes full ROM and Yes no lymphadenopathy Chest Chest palpation & inspection: normal inspection of the chest Resp Auscultation: diminished lung sounds Cardio Rate: regular rate Rhythm: regular rhythm Heart sounds: S1 normal heart sound present and S2 normal heart sound present GI Palpation (GI): Soft to palpation and nontender Auscultation: normal bowel sounds Skin General skin exam: rashes and/or lesions noted Assessment & Plan Assessment & Plan (1) REY (obstructive sleep apnea): Code(s): G47.33 - Obstructive sleep apnea (adult) (pediatric) Category: Medical (2) Asthma: Code(s): J45.909 - Unspecified asthma, uncomplicated Category: Medical Qualifiers: Asthma complication type: uncomplicated Asthma persistence: persistent Asthma severity: moderate Qualified Code(s): J45.40 - Moderate persistent asthma, uncomplicated Plan continue APAP 6-16-->6-12,nasal pillows EDWIGE needed F/U 12 months Coding Level of Care Code Est Pt Level 4 (14064) Diagnoses REY (obstructive sleep apnea) G47.33 Moderate persistent asthma without complication J45.40 Asthma complication type: uncomplicated Asthma persistence: persistent Asthma severity: moderate Time Spent (min) 16
--- OUTSIDE RECORDS SUMMARY | 2024-12-08 10:23 | XMS_ITS | Encounter Summary ---
Author Organization [employer] Address [address] [facility] 7[address] [place] [address] Care Team Providers Care Brine Purifier Name Role Phone Radha Bran MD Primary Care Provider + Encounter Details Date Type Department Care Team ([facility] st Contact Info) Description 08/25/2024 Orders Only [facility] [address] [place] [address] Radha Bran MD [address] [place] [address] Social History Tobacco Use Types Packs/Day Years [...] Description 12/15/2024 10:30 AM EDT Office Visit [facility] [address] [place] [address] Radha Bran MD [address] [place] [phone] documented as of this encounter Visit Diagnoses Not on filedocumented in this encounter Additional Health Concerns Assessment Noted Time PHQ-9 Depression Total Score: 13 024 10:37 AM EST documented as of this encounter Care Teams Brine Purifier Relationship Specialty Start Date End Date Radha Bran MD [address] [place] [phone] PCP - General Family Medicine 10/16/20 documented as of this encounter
--- OUTSIDE RECORDS SUMMARY | 2024-12-08 10:24 | XMS_ITS ---
Author Name Maribel Vann NP Address [address] [place] [address] Phone [phone] [facility] [employer] Care Team Providers Care Cupola Tapper Helper Name Role Phone Maribel Vann Unavailable [phone] [facility] Unavailable [place], [facility] Unavailable [phone] [place]/Al Ruiz Roseboom Unavailable Unavailable Unavailable [phone] Unavailable Unavailable [phone] [employer] Unavailable [phone] Pedro Mohamud Unavailable [phone] Radha Bran Unavailable Reason for Referral Not Available Allergies, adverse reactions, alerts No known allergies History of medication use Medication Class Instructions Start Date End Date Fluocinolone Acetonide Body 0.01 % Oil APPLY BOTTLE TOPICALLY TO THE AFFECTED AREA IN THE MORNING 2022-08-13 No Data Available B-D KURTIS 2ND GEN PEN NDL [id number] USE TO INJECT FOUR TIMES DAILY 2022-08-28 [...] Data Available 2023-06-03 No D aries Available TealetTouch Verio Flex System w/Device Kit USE TO [...] time a day 2024-04-21 No Data Available [place] Nasal [place] 0.65 % Solution Nasal 2 sprays intranasally [...] Active 2024-11-24 N/A Other problems related to ca dical facilities and other health care Active 2024-05-03 N/A Encounters Encounters Type Facility Date of Service Diagnosis/Co mplaint No Data Available [facility] ([place]) 04/09/2023 Morbid (severe) obesity due to excess caloriesBody mass index (BMI) 40.0-44.9, adultType 2 diabetes w unsp diabetic retinopathy w macular edemaMajor depressive disorder, recurrent, mildIron deficiency anemia, unspecifiedUnspecified urinary incontinenceUnspecified asthma, uncomplicatedObstructive sleep apnea (adult) (pediatric)2-part nondisp fx of surg nk of l humer, 7thDEssential (primary) hypertensionHistory of fallingDifficulty in walking, not elsewhere classified No Data Available [facility], ([place] 04/09/2023 No [facility] [place] [facility] No Data Available [facility] [place]2023 No Data Available [facility] [place]/2023 No Data Available [facility] [place]/09/2023 No Data Available [facility] [place]/09/2023 Estab. patient 20-29min; 1 stable chronic or 2 minor; add add modifier 95 for video, modifier 93 for phone [facility], ([place] 05/06/2023 [...] 95 for video, modifier 93 for phone [facility] [place] 05/06/2023 Estab. patient 20-29min; 1 stable chronic or 2 minor; add add modifier 95 for video, modifier 93 for phone [facility] [place]/06/2023 Estab. patient 20-29min; 1 stable chronic or 2 minor; add add modifier 95 for video, modifier 93 for phone [facility] [place] 05/06/2023 No Data Available [facility] [place] 06/15/2023 History of fallingDifficulty in walking, not elsewhere classified No Data Available [facility], ([place] 06/15/2023 No Data Available [facility], ([place]) 06/16/2023 History of fallingDifficulty in walking, not elsewhere classifiedPersonal history of (healed) traumatic fracture No Data Available [facility] 06/16/2023 No Data Available [facility]/16[place]2023 No Data Available [facility] 06/16[place]2023 No Data Available [facility] 07/08/2023 Difficulty in walking, not elsewhere classifiedHistory of fallingPersonal history of (healed) traumatic fracture No Data Available [facility] 07/08/2023 Estab. patient 30-39min; chronic exacerbation, 2 stable chronic or 1 acute illness add add modifier 95 for video, (do not use for phone, instead use 62099-23) [facility] 07/15/2023 Morbid (severe) obesity due to [...] (do not use for phone, instead use 02402-26) [facility] 07/15/2023 Estab. patient 30-39min; chronic exacerbation, 2 stable chronic or 1 acute illness add add modifier 95 for video, (do not use for phone, instead use 45213-38) [facility] 07/15/2023 Estab. patient 30-39min; chronic exacerbation, 2 stable chronic or 1 acute illness add add modifier 95 for video, (do not use for phone, instead use 33179-44) [facility] [place] 07/15/2023 Estab. patient 30-39min; chronic exacerbation, 2 stable chronic or 1 acute illness add add modifier 95 for video, (do not use for phone, instead use 91410-36) [facility] [place] 07/15/2023 No Data Available [facility] [place] 08/14/2023 Morbid (severe) obesity due to excess caloriesBariatric surgery statusUnspecified asthma, uncomplicatedHistory of fallingDifficulty in walking, not elsewhere classifiedPersonal history of (healed) traumatic fracture No Data Available [facility], [place] 08/14/2023 No Data Available [facility] 09/09/2023 Urinary tract infection, sit e not specified No Data Available [facility] [place] 09/10/2023 Urinary tract infection, sit e not specifiedHistory of fallingDifficulty in walking, not elsewhere classifiedPersonal history of (healed) traumatic fracture No Data Available [facility], [place] 09/10/2023 Estab. patient 30-39min; chronic exacerbation, 2 stable chronic or 1 acute illness add add modifier 95 for video, (do not use for phone, instead use 65216-62) [facility] [place] 09/18/2023 Urinary tract infection, sit e [...] (do not use for phone, instead use 49198-58) [facility] 09/18/2023 Estab. patient 30-39min; chronic exacerbation, 2 stable chronic or 1 acute illness add add modifier 95 for video, (do not use for phone, instead use 59804-77) [facility] ([place] 09/18/2023 Estab. patient 30-39min; chronic exacerbation, 2 stable chronic or 1 acute illness add add modifier 95 for video, (do not use for phone, instead use 67024-21) [facility] 09/18/2023 Estab. patient 30-39min; chronic exacerbation, 2 stable chronic or 1 acute illness add add modifier 95 for video, (do not use for phone, instead use 18096-74) [facility] 09/18/2023 Estab. patient 30-39min; chronic exacerbation, 2 stable chronic or 1 acute illness add add modifier 95 for video, (do not use for phone, instead use 21191-52) [facility], ([place] 09/18/2023 Estab. patient 30-39min; chronic exacerbation, 2 stable chronic or 1 acute illness add add modifier 95 for video, (do not use for phone, instead use 33865-46) [facility] [place] 09/18/2023 Estab. patient 30-39min; chronic exacerbation, 2 stable chronic or 1 acute illness add add modifier 95 for video, (do not use for phone, instead use 35244-60) [facility] 09[place]18/2023 Estab. patient 30-39min; chronic exacerbation, 2 stable chronic or 1 acute illness add add modifier 95 for video, (do not use for phone, instead use 89715-59) [facility] 09/18/2023 No Data Available [facility] 04/21/2024 Morbid (severe) obesity due to excess caloriesBariatric surgery statusType 2 diabetes w unsp diabetic retinopathy w macular edemaUnspecified urinary incontinenceUnspecified asthma, uncomplicatedObstructive sleep apnea (adult) (pediatric)Essential (primary) hypertensionBody mass index (BMI) 40.0-44.9, adultMajor depressive disorder, recurrent, mildOther problems related to medical facilities and other health careHeadache, unspecifiedOther chronic pain No Data Available [facility] 04[place]21/2024 No Data Available [facility] 04/21/2024 No Data Available [facility] 04/21/2024 No Data Available [facility] [place] No Data Available [facility] [place]2024 No Data Available [facility] [place] 04/[place]/2024 No Data Available [facility] [place] 05/03/2024 Type 2 diabetes w unsp diabe tic retinopathy w macular edemaAllergic contact dermatitis due to plants, except foodEncounter for other specified aftercareOther problems related to medical facilities and other health careLong term (current) use of insulin No Data Available [facility] [place] 05/03/2024 No Data Available [facility] [place] 08/26/2024 Flu due to unidentified influenza virus w oth resp manifestPersons encountering health services in other specified circumstancesOther problems related to medical facilities and other health care No Data Available [facility] [place] 08/26/2024 No Data Available [facility] [place] 08/26/2024 Estab. patient 10-29min; 1 minor problem; add add modifier 95 for video, modifier 93 for phone [facility] [place] 09/22/2024 Type 2 diabetes w unsp diabe tic retinopathy w macular edemaUnspecified asthma, uncomplicatedObstructive sleep apnea (adult) (pediatric)Body mass index (BMI) 40.0-44.9, adultOther problems related to medical facilities and other health care Estab. patient 10-29min; 1 minor problem; add add modifier 95 for video, modifier 93 for phone [facility] [place] 09/22/2024 Estab. patient 10-29min; 1 minor problem; add add modifier 95 for video, modifier 93 for phone [facility] [place] 09/22/2024 Estab. patient 10-29min; 1 minor problem; add add modifier 95 for video, modifier 93 for phone [facility] [place] 09/22/2024 Estab. patient 10-29min; 1 minor problem; add add modifier 95 for video, modifier 93 for phone [facility] [place] 10/21/2024 Type 2 diabetes w unsp diabe tic retinopathy w macular edemaOther female genital prolapseUnspecified urinary incontinenceOther problems related to medical facilities and other health care Estab. patient 10-29min; 1 minor problem; add add modifier 95 for video, modifier 93 for phone [facility] [place] 10/21/2024 Estab. patient 10-29min; 1 minor problem; add add modifier 95 for video, modifier 93 for phone [facility] [place] 11/24/2024 Type 2 diabetes w [...] tive Time Current Smoking Status Former smoker 2024-11-29 0 Sex Female History of Procedures Procedures Service Procedure code Service date Servicing provider Phone# No Data Available [id number] 2023-04-09 No Data Available No Data Available [...] 95 for video, modifier 93 for phone [id number] 2023-05-06 No Data Available No Data Availa [...] No Data Carli ilable No Data Available [id number] 2023-06-15 No Data Available No Data Available Medication List Documented (1159F) 1159F 2023-06-15 No Data Available No Data Carli ilable No Data Available [id number] 2023-06-16 No Data Available No Data Available Medication List Documented (1159F) 1159F 2023-06-16 No Data Available No Data Carli ilable Pain Assessment - Pain Documented on a Pain Scale (1125F) 1125F 2023-06-16 No Data Available No Data Carli ilable BMI obtained (3008F) 3008F 2023-06-16 No Data Availab le No Data Available No Data Available [id number] 2023-07-08 No Data Available No Data Available Medication List Documented (1159F) 1159F 2023-07-08 No Data Available No Data Carli ilable Estab. patient 30-39min; chronic exacerbation, 2 stable chronic or 1 acute illness add add modifier 95 for video, (do not use for phone, instead use 51780-80) [id number] 2023-07-15 No Data Available No Data Availa [...] No Data Carli ilable No Data Available [id number] 2023-08-14 No Data Available No Data Available Medication List Documented (1159F) 1159F 2023-08-14 No Data Available No Data Carli ilable No Data Available [id number] 2023-09-09 No Data Available No Data Available No Data Available [id number] 2023-09-10 No Data Available No Data Available Medication List Documented (1159F) 1159F 2023-09-10 No Data Available No Data Carli ilable Estab. patient 30-39min; chronic exacerbation, 2 stable chronic or 1 acute illness add add modifier 95 for video, (do not use for phone, instead use 17838-08) [id number] 2023-09-18 No Data Available No Data Availa [...] No Data Avail able No Data Available [id number] 2024-04-21 No Data Available No Data Available [...] le No Data Available No Data Available [id number] 2024-05-03 No Data Available No Data Available [...] 95 for video, modifier 93 for phone [id number] 2024-09-22 No Data Available No Data Availa [...] 95 for video, modifier 93 for phone [id number] 2024-10-21 No Data Available No Data Availa ble Medication List Documented (1159F) 1159F 2024-10-21 No Data Available No Data Carli ilable Estab. patient 10-29min; 1 minor problem; add add modifier 95 for video, modifier 93 for phone [id number] 2024-11-24 No Data Available No Data Availa [...] units TID AC meals and FU with orientation and mobility specialist in February,Wears rafaela paduses inhaler Flovent BIDHas [...] units TID AC meals and FU with orientation and mobility specialist in February,Wears rafaela padNeeds chux pads, XL pull-ups, gloves XLuses inhaler Flovent BIDHas CPAP using nightlyContinue lovenox as directedAdvancing home PTencouraged UE activity as toleratedHas not been taking BP medication since surgery 2 months ago on broken footApril 2022 had a bad fall on steps at entrance to home. Fractured L foot, L?knee, L shoulderStill unable to walkUsing wheelchairNow [facility] productsEscitalopramWill think about whether she wants [...] foot, L?knee, L shoulderStill unable to walkUsing ggdpwqetiq38/16/2023er son, can only walk very short distances [...] unable to walkUsing wheelchairNow [facility]06/15/[facility]23er son, can only walk very [...] and we need videocall. Tablet needs a child care supervisor, will send and schedule videocall for next [...] unable to walkUsing wheelchairNow [facility]06/[facility]er son, can only walk very [...] to PT but after she returns from [place] in [facility].Can start in October. 2023-08-14 12:38:06 [...] unable to walkUsing wheelchairNow [facility]06/15/2023er son, can only walk very [...] and we need videocall. Tablet needs a child care supervisor, will send and schedule videocall for next [...] 09/10/23.UPDATE 09/10/2023t has not yet gone to crab picker prescription. Feels about the same. Education [...] documented (1126F)Continue to see PCP. Follow-up with [facility] as needed for any acute or disease education needs that may arise.09/09/23: Malodorous dark urine, Left flank painWill start nitrofurantoin.Increase water and rest.Tylenol.F/U with MAHENDRA 09/10/23.UPDATE 4Pt has not yet gone to crab picker prescription. Feels about the same. Education [...] unable to walkUsing wheelchairNow having [facility]3Per son, can only walk very [...] and we need videocall. Tablet needs a child care supervisor, will send and schedule videocall for next [...] units TID AC meals and FU with orientation and mobility specialist Reports stableWears rafaela padNeeds chux pads, XL pull-ups, gloves XLuses inhaler Flovent BIDHas CPAP using nightlyContinue lovenox as directedAdvancing home PTencouraged UE activity as toleratedHas not been taking BP medication aftersurgery on broken footUPDATE 4Reports compliance nowApril 2022 had a bad fall on steps at entrance to home. Fractured L lower leg, L shoulderStill unable to walkUsing wheelchairNow [facility]er son, can only walk very [...] and we need videocall. Tablet needs a child care supervisor, will send and schedule videocall for next [...] 09/10/23.UPDATE 09/10/2023t has not yet gone to crab picker prescription. Feels about the same. Education [...] individual diagnosis for contingency plan.previously diagnosed [facility]/20/[facility] 2024-04-21 09:19:41 Phone (patient, pare [...] units TID AC meals and FU with orientation and mobility specialist Reports stableWears rafaela padNeeds chux pads, XL [...] modifier 95)Continue to see PCP. [facility] or [facility] [...] units TID AC meals and FU with orientation and mobility specialist Reports stable09/22/24feels well, denies hypo/hyperglycemic episodescontinues to use CGM and insulin pump A1c 6.9 05/24/24uses inhaler Flovent BIDuses nebulizer 09/22/24denies SOBHas CPAP using nightlyCOPD CONTINGENCY PLANLast updated: 09/22/2024[facility] to call for the following symptoms: Increased [...] incontinence supplies ordered 2 months ago by [facility] cc, but has not received yet. Is [...] continues recommend decreasing lantusDIABETES CONTINGENCY PLANLast updated: 10/21/2024[facility] to call for the following symptoms: Blood [...] Flovent BIDuses nebulizer 11/24/24denies SOBpreviously diagnosed 01/20/23 [facility] painstablewill f/u with Rheum 11/2024Vitamin D [...]
--- OUTSIDE RECORDS SUMMARY | 2024-12-08 10:24 | XMS_ITS | Encounter Summary ---
Author Organization [employer] Address [address] [place] [address] [address] [place] [address] Care Team Providers Care Sales Correspondent Name Role Phone Radha Bran MD Primary Care Provider + Reason for Visit * Reason Onset Date Comments Letter for School/Work 10/16/2022 Encounter Details Date Type Department Care Team ([facility] st Contact Info) Description 10/16/2022 Telephone [facility] [address] [place] [address] Radha Bran MD [address] [place] [address] Letter for School/Work Social History Tobacco Use [...] Description 12/15/2024 10:30 AM EDT Office Visit [facility] [address] [place], [place] [phone] Radha Bran MD [address] [place] [address] documented as of this encounter Visit Diagnoses Not on filedocumented in this encounter Care Teams Sales Correspondent Relationship Specialty Start Date End Date Radha Bran MD [address] [place], [place] [phone] PCP - General Family Medicine 10/16/20 documented as of this encounter
--- OUTSIDE RECORDS SUMMARY | 2024-12-08 10:24 | XMS_ITS | Encounter Summary ---
Author Organization [employer] Address [address] [facility] [address] [place] [address] Care Team Providers Care Mumps Developer Name Role Phone Radha Bran MD Primary Care Provider + Reason for Visit * Reason Onset Date Comments Durable Medical Equipment 10/08/2023 Encounter Details Date Type Department Care Team ([facility] st Contact Info) Description 10/08/2023 Telephone [facility] [address] [place] [address] Radha Bran MD [address] [place] [address] Durable Medical Equipment Social History Tobacco Use [...] if any questions contact Bunny Sow at [phone]. documented in this encounter Plan of Treatment Upcoming Encounters Date Type Department Care Team (Late st Contact Info) Description 12/15/2024 10:30 AM EDT Office Visit [facility] [address] [place] [address] Radha Bran MD [address] [place] [address] documented as of this encounter Visit Diagnoses Not on filedocumented in this encounter Care Teams Mumps Developer Relationship Specialty Start Date End Date Radha Bran MD [address] [place] [id number] PCP - General Family Medicine 10/16/20 documented as of this encounter
--- OUTSIDE RECORDS SUMMARY | 2024-12-08 10:24 | XMS_ITS | Clinical Summary ---
Author Organization [employer] Address [address] [facility] 7t [place] [address] Care Team Providers Care Registration Scheduling Specialist Name Role Phone Dominick rBan MD Primary Care Provider + Allergies [...] Active Blood Pressure Monitoring (Blood Pressure Cuff) [facility] kit-large cuff USE DIRECTED [...] the morning. 30 tablet 11 12/04/19 24 Active BD Pen Needle Nora 2nd Gen [...] daily 1 more week. Will refer to [facility] for assistance to move to a [...] on Mounjaro - advised to call Dr. Mohamdu's office to check on endo appt. - [...] better controlled She has an appointment w/ optimization analyst in the next 2 wks Continue Humalog + Lantus 24 units + Mounjaro Counseled re more frequent low calorie/carb meals. Check fgstk daily Encouraged physical activity as tolerated. FU w/ optimization analyst Assessment & Plan (10/12/2023 2:48 PM EST): [...] units TID AC meals and FU with optimization analyst in February, she will fu with me in 12 weeks Assessment & Plan (01/09/2023 11:10 AM EDT): Uncontrolled. Increase Lantus to 30 units per day and no other medication changes, follow up with optimization analyst. Assessment & Plan (09/24/2022 10:50 AM EST): Uncontrolled. A1C is worse than last month. Most likely related to acute URI at this time. No change in medications, FU closely with optimization analyst. COVID-19 09/24/2022 Assessment & Plan (09/24/2022 10:51 [...] covid test is positive. 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 Continue Avapro 75mg and fu with [...] Type Department Care Team Description 11/30/2024 Refill [facility] [address] [place] [address] Dominick Bran MD Type I or II open displaced comminuted fracture of shaft of left tibia with routine healing, subsequent encounter 11/16/2024 Telephone [facility] WALK-IN CENTER [address] [place] [address] Dominick Bran MD Results 11/16/2024 Orders Only [address] [address] Malia Franklin MD Positive DOMINICK (antinuclear antibody) (Primary Dx); Fatigue, unspecified type 11/11/[address] [address] Maddie Maurer, RN Results 11/09/2024 Orders Only GENERIC EXTERNAL DATA DEPARTMENT Provider, Generic External Data 11/03/2024 2:45 PM EST Office Visit [address] [address] Malia Franklin MD Palpitation (Primary Dx); SOB (shortness of breath) on exertion; Chronic fatigue 11/03/2024 Travel 11/03/[address] [address] Dominick Bran MD Nurse Triage 11/02/[address] [address] Dominick Bran MD Chart Prep 11/02/2024 Orders Only GENERIC EXTERNAL DATA DEPARTMENT Provider, Generic External Data 10/01/[address] [address] Dominick Bran MD 09/21/2024 Orders Only GENERIC EXTERNAL DATA DEPARTMENT Provider, Generic External Data from Last 3 Months Immunizations Name Administration [...] Description 12/15/2024 10:30 AM EDT Office Visit [facility] [address] [place] [address] Dominick Bran MD [address] [place] [address] Health Maintenance Due Date Last Done Comments [...] 05/2022, 11/26/2021, Additional history exists Depression Monitoring 04/26/2024 10/27/2023, 024 COVID-19 Vaccine ( season) 2024 10/12/2023, 07/14/2022, [...] 8:02 AM EDT) Creatinine, Urine 265.18 mg/dL [facility] Protein, Total, Random Urine 61(H) <12 mg/dL [facility] Protein/Creati nine Ratio, Ur 0.23(H) <0.2 [facility] Comment:The spot urine prote in:creatinine ratio may increase to 0.3during normal . 11/09/2024 8:02 AM EDT 11/09/2024 8:20 AM EDT us Generic External Data Provider LAB URINE ORDERAB LES Final Result [facility] [address] [place] [phone] * (ABNORMAL) Vitamin D, 25-Hydroxy, Total, Immunoassay (11/09/2024 8:00 AM EDT) Vitamin D 25-OH Total 19.7(L) >30 ng/mL [facility] Comment: Health Based Reference Values*< 20 ??ng/mL ??Ypbjseccx95-84 ng/mL ??Insufficient> 30 ??ng/mL ??Sufficient*Taras SUAZO. N [...] Hall MD LAB BLOOD ORDERABLES Final Result [facility] [address] [place] [address] [phone] * Vitamin B12/Folate, Serum Panel (11/09/2024 8:00 AM EDT) Vitamin B12 525 200 - 900 pg/mL [facility] Comment:NORMAL 200-900 PG/ML INDETERMINATE 160-199 PG/ML DEFICIENT < 160 PG/ML Folate 9.0 > or = 4.0 ng/mL [facility] Comment:Reference Values:> o r = [...] Final Result Performing Organization Address [facility] Co de Phone Number [facility] [address] [place] [phone] * TSH with Reflex to Free T4 (11/09/2024 8:00 AM EDT) [facility] TSH reflex Free T4 3.69 0.32 - 4.0 uIU/mL [facility] Blood Venous blood specimen / Unknown 11/09/2024 8:00 AM EDT 11/09/2024 8:11 AM EDT us Malia Hall MD LAB BLOOD ORDERABLES Final Result Performing Organization Address [facility] Co de Phone Number [facility] [address] [place] [phone] * (ABNORMAL) CBC auto differential (11/09/2024 8:00 AM EDT) [facility] White Blood Count 6.7 4.8 - 10.8 X10*3/uL [facility] Red Blood Count 4.71 4.20 - 5.50 X10*6/uL [facility] Hemoglobin 13.4 12.0 - 16.0 g/dl [facility] Hematocrit 39.8 37.0 - 47.0 % [facility] Mean Corpuscular Volume 84.5 80.0 - 98.0 fL [facility] Mean Corpuscular Hemoglobin 28.5 27.0 - 33.0 pg [facility] Mean Corpuscular HGB Conc 33.7 31.0 - 35.0 g/dl [facility] Red Cell Distribution Width 13.4 11.0 - 16.0 % [facility] Platelet Count 199 160 - 400 X10*3/uL [facility] Mean Platelet Volume 11.4 9.4 - 12.3 fL [facility] Neutrophils Percent Auto 57.9 45 - 73 % [facility] Imm Gran Pct Auto 0.5(H) 0.0 - 0.4 % [facility] Lymphocytes Percent Auto 32.6 20 - 40 % [facility] Monocytes Percent Auto 6.9 2 - 11 % [facility] Eosinophils Percent Auto 1.8 0 - 4 % [facility] Basophils Percent Auto 0.3 0 - 2 % [facility] NRBC Pct Auto 0.0 0.0 - 0.2 /100WBC [facility] Neutrophils Absolute Auto 3.9 2.0 - 8.3 x10*3/uL [facility] Imm Gran Abs Auto 0.03 0.00 - 0.03 X10*3/uL [facility] Lymphocytes Absolute Auto 2.2 1.2 - 4.9 X10*3/uL [facility] Monocytes Absolute Auto 0.5 0.1 - 1.2 X10*3/uL [facility] Eosinophils Absolute Auto 0.1 0.0 - 0.4 X10*3/uL [facility] Basophils Absolute Auto 0.0 0.0 - 0.2 X10*3/uL [facility] NRBC Abs Auto 0.000 0.0 - 0.012 X10*3/uL [facility] Blood Venous blood specimen / Unknown 11/09/2024 8:00 AM EDT 11/09/2024 8:11 AM EDT us Malia Hall MD LAB BLOOD ORDERABLES Final Result [facility] [address] [place] [address] [phone] * Hepatitis C Antibody with Reflex to HCV, RNA, Quantitative, Real-Time PCR (11/09/2024 8:00 AM EDT) Pathologist [facility] Hepatitis C Antibody Nonreactive Nonreactive [facility] Comment:Antibodies to HCV no t detected; does not exclude early acuteHCV infection. Blood Venous blood specimen / Unknown 11/09/2024 8:00 AM EDT 11/09/2024 8:11 AM EDT Malia Hall MD LAB BLOOD ORDERABLES Final Result Performing Organization Address [facility] Co de Phone Number [facility] [address] [place] [phone] * Cyclic Citrullinated Peptide (CCP) Antibody (IgG) (11/09/2024 8:00 AM EDT) [facility] Cyclic Citrullinated Peptide <16 UNITS [facility] Comment:Reference RangeNegat maggie: <20Weak Positive: 20-39Moderate Positive: 40-59Strong Positive: >59THIS TEST WAS PERFORMED AT:[facility] [employer] [address] [phone] WEINSTEIN MD Blood Venous blood specimen / Unknown 11/09/2024 8:00 AM EDT 11/09/2024 8:11 AM EDT Malia Hall MD LAB BLOOD ORDERABLES Final Result Performing Organization Address [facility] Co de Phone Number [facility] [address] [place] [phone] * Iron And Total Iron Binding Capacity (11/09/2024 8:00 AM EDT) Pathologist [facility] Iron 51 30 - 160 mcg/dL [facility] Total Iron Binding Capacity 267 228 - 428 mcg/dL [facility] Percent Iron Saturation 19 15 - 50 % [facility] Unsaturated Iron Binding 216 ug/dL [facility] Blood Venous blood specimen / Unknown 11/09/2024 8:00 AM EDT 11/09/2024 8:11 AM EDT us Malia Hall MD LAB BLOOD ORDERABLES Final Result Performing Organization Address [facility]/ZIP Co de Phone Number [facility] [address] [place] [phone] * HIV-1/2 Antigen and Antibodies, Fourth Generation, with Reflexes (11/09/2024 8:00 AM EDT) Pathologist [facility] HIV AB/AG Nonreactive Nonreactive [facility] Comment:HIV-1 p24 Ag and/or HIV-1/HIV-2 Ab not detected.A test result that is nonreactive does not exclude thepossibility of exposure to or infection with HIV-1 and/orHIV-2. Nonreactive results in this assay for individualswith prior exposure to HIV-1 and/or HIV-2 may be due toantigen and antibody levels that are below the limit ofdetection of this assay.The [employer] HIV Ag/Ab Combo assay result andsupplemental assay results should be interpreted inconjunction with the patient's clinical presentation,history and other laboratory results. If the results areinconsistent with clinical evidence, additional testing issuggested to confirm the result. Blood Venous blood specimen / Unknown 11/09/2024 8:00 AM EDT 11/09/2024 8:11 AM EDT us Malia Hall MD LAB BLOOD ORDERABLES Final Result Performing Organization Address [facility]/ZIP Co de Phone Number [facility] [address] [place] [address] [phone] * (ABNORMAL) Sed Rate by Modified Samirren (11/09/2024 8:00 AM EDT) Erythrocyte Sedimentation Rate 27(H) 0 - 20 MM/HR [facility] Comment:Patients with polycy themia and many hemoglobin abnormalitiesmay have depressed sed rates whereas patients with anemiamay have elevated sed rates. Blood Venous blood specimen / Unknown 11/09/2024 8:00 AM EDT 11/09/2024 8:11 AM EDT us Malia Hall MD LAB BLOOD ORDERABLES Final Result Performing Organization Address [facility] Co de Phone Number [facility] [address] [place] [phone] * (ABNORMAL) C-reactive Protein (11/09/2024 8:00 AM EDT) C Reactive Protein 0.85(H) < or = 0.50 mg/dL [facility] Blood Venous blood specimen / Unknown 11/09/2024 8:00 AM EDT 11/09/2024 8:11 AM EDT us Malia Hall MD LAB BLOOD ORDERABLES Final Result Performing Organization Address [facility] Co de Phone Number [facility] [address] [place] [phone] * (ABNORMAL) DOMINICK Screen,IFA, with Reflex to Titer and Pattern (11/09/2024 8:00 AM EDT) Anti Nuclear Antibody Screen POSITIVE (A) NEGATIVE [facility] Comment:DOMINICK IFA is a first l ine screen for detecting thepresence of up to approximately 150 autoantibodies invarious autoimmune diseases. A positive DOMINICK IFA resultis suggestive of autoimmune disease and reflexes totiter and pattern. Further laboratory testing may beconsidered if clinically indicated.For additional information, please refer tohttp://education.[employer]/faq/VRZ215(This link is being provided for informational/educational purposes only.) DOMINICK Titer 1:40(A) titer [facility] Comment:A low level DOMINICK tite r may be present in pre-clinicalautoimmune diseases and normal individuals. Reference Range <1:40 Negative 1:40-1:80 Low Antibody Level >1:80 Elevated Antibody Level DOMINICK Pattern Nuclear, Speckled (A) [facility] Comment:Speckled pattern is associated with mixed connectivetissue disease (MCTD), systemic lupus erythematosus(SLE), Sjogren's syndrome, dermatomyositis, andsystemic sclerosis/polymyositis overlap.AC-2,4,5,29: SpeckledInternational Consensus on DOMINICK Patterns(https://doi.org/10.1515/augb-3812-8733)THIS TEST WAS PERFORMED AT:[employer] [place] [phone] WEINSTEIN MD DOMINICK TITER 2 (REF LAB) [facility] DOMINICK Pattern 2 [facility] DOMINICK TITER 3 [facility] DOMINICK PATTERN 3 [facility] Blood Venous blood specimen / Unknown 11/09/2024 8:00 AM EDT 11/09/2024 8:11 AM EDT us Malia Hall MD LAB BLOOD ORDERABLES Final Result Performing Organization Address City/[facility]/ZIP Co de Phone Number [facility] [address] [place] [phone] * (ABNORMAL) BUN (Blood Urea Nitrogen) (11/09/2024 8:00 AM EDT) Urea Nitrogen (BUN) 18(H) 9 - 16 mg/dL [facility] 11/09/2024 8:00 AM EDT 11/09/2024 8:11 AM EDT us Generic External Data Provider LAB BLOOD ORDERAB LES Final Result Performing Organization Address [facility]/ZIP Co de Phone Number [facility] [address] [place] [phone] * Ferritin (11/09/2024 8:00 AM EDT) Ferritin 36 10 - 250 ng/mL [facility] Blood Venous blood specimen / Unknown 11/09/2024 8:00 AM EDT 11/09/2024 8:11 AM EDT us Malia Hall MD LAB BLOOD ORDERABLES Final Result Performing Organization Address [facility] Co de Phone Number [facility] [address] [place] [address] [phone] * Lipid Panel, Standard (11/09/2024 8:00 AM EDT) Triglycerides 98 <150 mg/dL [facility] Comment:Desirable Triglyceri de: less than 150 mg/dLBorderline High Triglyceride 150-199 mg/dLHigh Triglyceride: 200-499 mg/dLVery High Triglyceride: greater than or equal to 5OO mg/dL Cholesterol 126 <200 mg/dL [facility] Comment:Desirable Cholestero l: less than 200 mg/dLBorderline High Cholesterol: 200-239 mg/dLHigh Cholesterol: greater than 239 mg/dL LDL Cholesterol Calculated 62 <100 mg/dL [facility] Comment:Desirable LDL: less than 100 mg/dLNear Optimal/Above Optimal LDL: 110- 129 mg/dLBorderline High LDL: 130-159 mg/dLHigh LDL: 160-189 mg/dLVery High LDL: greater than or equal to 190 mg/dL HDL Cholesterol 45 >40 mg/dL [facility] Comment:Desirable HDL: great er than 40 mg/dL Note: This HDL assay may give artificially low results in patients with liver disease. Blood Venous blood specimen / Unknown 11/09/2024 8:00 AM EDT 11/09/2024 8:11 AM EDT us Malia Hlal MD LAB BLOOD ORDERABLES Final Result Performing Organization Address [facility]/ZIP Co de Phone Number [facility] [address] [place] [address] [phone] * (ABNORMAL) Comprehensive Metabolic Panel (11/09/2024 8:00 AM EDT) Sodium 142 135 - 145 mmol/L [facility] Potassium 3.8 3.3 - 5.1 mmol/L [facility] Chloride 111(H) 96 - 108 mmol/L [facility] Carbon Dioxide 25 22 - 29 mmol/L [facility] Anion Gap 10(L) 12 - 20 [facility] Urea Nitrogen (BUN) 17(H) 9 - 16 mg/dL [facility] Creatinine, Serum 0.62 0.5 - 1.4 mg/dL [facility] Estimated Glomerular Filt Rate >60 [facility] Comment:Chronic Kidney Disea se: Estimated GFR < 60 mL/min/1.84l0Dexqlk Kidney Disease: Estimated GFR < 15 mL/min/1.73m2 Glucose 134(H) 60 - 115 mg/dL [facility] Calcium 8.9 8.4 - 10.2 mg/dL [facility] Bilirubin, Total 0.3 0.0 - 1.0 mg/dL [facility] Aspartate Amino Transferase 23 5 - 31 U/L [facility] Alanine Aminotransferase 30 0 - 31 U/L [facility] Total Protein 7.4 6.5 - 8.0 g/dL [facility] Albumin Level 3.5 3.5 - 5.0 g/dL [facility] Alkaline Phosphatase 62 39 - 117 U/L [facility] Blood Venous blood specimen / Unknown 11/09/2024 8:00 AM EDT 11/09/2024 8:11 AM EDT us Malia Hall MD LAB BLOOD ORDERABLES Final Result [facility] [address] [place], [place] [phone] * (ABNORMAL) Glucose, Whole Blood (11/02/2024 1:25 PM EST) Only the most recent of2 resultswithin the time period is included. Glucose, Whole Blood 145(H) 60 - 115 mg/dL [facility] Comment:METER #: [id number] Testing performed in the Endocrinology Department [address], [address], [facility]. 11/02/2024 1:25 PM EST 11/02/2024 1:30 PM EST Generic External Data Provider LAB BLOOD ORDERAB LES Final Result Performing Organization Address [facility]/ZIP Co de Phone Number [facility] [address] [place] [address] [phone] * (ABNORMAL) Hemoglobin A1c (05/24/2024 11:53 AM EDT) Hemoglobin A1c 6.9(H) <6.0 % [facility] Comment:Hemoglobin A1C Refer ence Range Adults: [...] asaverage glucose, using the formula of the Q1O-SpmfmncZaofvxz Glucose study (ADAG), Diabetes Care, Vol.31,#8,Mar. 2007 05/24/2024 11:5 3 AM EDT 05/24/2024 11:53 AM EDT us Generic External Data Provider LAB BLOOD ORDERAB LES Final Result Performing Organization Address [facility]/ZIP Co de Phone Number [facility] [address] [place] [phone] * Mammography (11/26/2021) Mammogram performed Anatomical Region Laterality Modality Other us Historical Provider HEALTH MAINTENANCE Final Result * Colonoscopy (10/04/2019) Colonoscopy performed us Historical Provider HEALTH MAINTENANCE Edited Result - Final from Last 3 Months or Most Recently Relevant to Health Maintenance Insurance [facility] Care Teams Registration Scheduling Specialist Relationship Specialty Start Date End Date Dominick Bran MD [address] [place] [address] [place] [address] PCP - General Family Medicine 10/16/20
--- OUTSIDE RECORDS SUMMARY | 2024-12-08 10:24 | XMS_ITS | Encounter Summary ---
Author Organization [facility] Address [address] [place] [address] 7 [place] [address] Care Team Providers Care Assembler Truck Trailer Name Role Phone Radha Bran MD Primary Care Provider + Encounter Details Date Type Department Care Team (Late st Contact Info) Description 08/06/2022 Telephone [facility] [address] [place] [address] [phone] Radha Bran MD [address] [place] [address] Social History Tobacco Use Types Packs/Day Years [...] Description 12/15/2024 10:30 AM EDT Office Visit [facility] [address] [place] [phone] Radha Bran MD [address] [place] [phone] documented as of this encounter Visit Diagnoses Not on filedocumented in this encounter Care Teams Assembler Truck Trailer Relationship Specialty Start Date End Date Radha Bran MD [address] [place] [phone] PCP - General Family Medicine 10/16/20 documented as of this encounter
--- OUTSIDE RECORDS SUMMARY | 2024-12-08 10:24 | XMS_ITS | Encounter Summary ---
Author Organization [facility] Address [address] [place] [address] 7 [place] [address] Care Team Providers Care Manager Retirement Name Role Phone Radha Bran MD Primary Care Provider + Encounter Details Date Type Department Care Team (Late st Contact Info) Description 07/28/2022 Abstract [facility] MED[facility]INE [address] [place] [phone] ProviderBritany MD Social History Tobacco Use Types [...] Description 12/15/2024 10:30 AM EDT Office Visit [facility] [address] [place] [address] Radha Bran MD [address] [place] [address] documented as of this encounter Visit Diagnoses Not on filedocumented in this encounter Care Teams Manager Retirement Relationship Specialty Start Date End Date Radha Bran MD [address] [place] [phone] PCP - General Family Medicine 10/16/20 documented as of this encounter
--- OUTSIDE RECORDS SUMMARY | 2024-12-08 10:24 | XMS_ITS | Data Portability ---
Author Organization [facility], Ar in - [facility] Address [address] [place] [phone] Care Team Providers Care Contract Processor Name Role Phone [facility] Referring Provider [facility] Referring Provider Assessment Encounter Date Assessment Date Assessment LastModified by Organization Details LastModified Time 03/17/2022 03/17/2022 I have reviewed and agree with the Assessment and Plan as documented by the Banquet Lead. I provided real -time medical direction via [...] go to the ER- report called to [place] [facility] [email or web address] Not available 03/18/2022 21:31:13 Plan of Treatment Reminders Order Date Submit Date Provider Last Modified By Organization Details Last Modified Time Details Appointments None recorded. Lab None recorded. Referral None recorded. Procedures None recorded. Surgeries None recorded. Imaging electrocard iogram 2021 022 [email or web address], [phone] 21:32:45 Medication Orders None recorded. Patient TargetsNo targets recorded. Patient InstructionsNo instructions recorded. Reason for Referral None Reported. Results Created Date Observation Date Name Description Value Unit Range Abnormal Flag Note LastModifiedBy Organization Detail LastModifiedTime 03/18/20 22 03/18/2022 elect doug dupontgr am No observ ation record ed. [email or web address] [address], [phone] 03/18/2022 21:32:33 Result Notes None recorded. Procedures Surgical History None recorded. Imaging Results Imaging Date Name Status LastModified by Organization Details LastModified Time 03/18/2022 electrocardiogram completed [email or web address] [address], [phone] 03/18/2022 21:32:33 Procedure Notes None recorded. Medical [...] Address Organization Details Last Updated DateTime 2 800760. 2 g 157.48 cm 97.8 [degF] 97 [...] 2768 Chelsea Hernandez MD Main - instED [address] [place] [phone] 03/17/2022 16:53:01 05/13/2022 21:10:03 Chest pain 08924882 R07.9 Health Concerns Section Related Observation LastModified by Organization Detai ls LastModified Time None Recorded Concern Status LastModified by Organization Details LastModified Time None Recorded Advance Directives Directive None Recorded Payers Encounter Date Sequence Insurance Name Policy Number Policy Wagner Covered Member ID Wagner Member ID Guarantor Name 03/17/[address] [facility] - DOS PRIOR TO 2022 - DUAL ELIGIBLE (MEDICARE REPLACEMENT/ADV ANTAGE - HMO) Halley Ramon [id number] Halley Ramon Notes Date Note Type Note [...] ................... ................... ................... ................... ................... ................... ........ Banquet Lead Note: Sent to a call for a pt complaining of chest pain and sob. [facility] arrives on scene, pt arrives home in a van. Pt is alert and oriented. Airway is patent. Level Vial Inside Grinder line used for communication as pt's primary language is Sinhala. Pt complains of left lateral neck pain [...] dizziness, n/v/d, abd pain, fever/chills or loc. [facility] orders 12 lead ECG. ECG uploaded to [facility]. [facility] advises pt to be transported to ED for further evaluation/treatmen t. Pt agrees. Pt care is transferred to [facility]. Pt transported to [facility]. ................... ................... ................... ................... ................... ................... ................... ........ Disposition: FulfilledSEGMD- as above-Pat seen at [facility] 03/06/22- was having neck pain and headache at the time-denied having CP or telling staff she had CP.- that started more recently. She finished the antibiotics- was also given albuterol, but she did not use it as it was making her nervous/ shakey//has minimal cough- clear phlegm. She reports she sees a plastics fabricator or welder, but does not know her cardiac dx. Has hx obesity/ DM/ HTN/REY / panic d/o per old record. Quit smoking > 35 yrs ago- pat reports no known family hx CAD. Chelsea Hernandez MD [address] [facility],[address], [place], [phone], [employer] 03/18/2022 21:32:58 OBGyn Episode No OBEpisode recorded.
--- OUTSIDE RECORDS SUMMARY | 2024-12-08 10:24 | XMS_ITS | Encounter Summary ---
Author Organization [employer] Address [address] [place] [address] 7 [place] [address] Care Team Providers Care Domestic Laundry Worker Name Role Phone Radha Bran MD Primary Care Provider + Encounter Details Date Type Department Care Team ([facility] Contact Info) Description 02/09/2023 [facility] Health Information Management [address] [place] [address] Radha Bran MD [address] [place] [address] Social History Tobacco Use Types Packs/Day Years [...] Upcoming Encounters Date Type Department Care Team ([facility] Contact Info) Description 12/15/2024 10:30 AM EDT Office Visit [facility] MED[facility] [address] [place] [address] Radha Bran MD [address] [place] [address] documented as of this encounter Visit Diagnoses Not on filedocumented in this encounter Care Teams Domestic Laundry Worker Relationship Specialty Start Date End Date Radha Bran MD [address] [place] [address] PCP - General Family Medicine 10/16/20 documented as of this encounter
== END 2024-12-08 10:30 | disposition home or self-care (01) ==
LOC: HO.HPS 09:29
PROVIDERS: PCP Internal Medicine; Visit Provider Hospitalist
DX: G47.33 Obstructive sleep apnea (adult) (pediatric) (principal); J45.40 Moderate persistent asthma, uncomplicated
CPT/HCPCS: 99214

== ENCOUNTER → 2024-12-08 09:28 | Outpatient (BNVA) | payer OTHER, SELFPAY | PROVIDERS: PCP Internal Medicine; Visit Provider Hospitalist | DX: G47.33 Obstructive sleep apnea (adult) (pediatric) (principal); J45.40 Moderate persistent asthma, uncomplicated | CPT/HCPCS: 99212 ==

== ENCOUNTER 2025-02-01 13:28 | Outpatient (AMB) | payer OTHER, SELFPAY ==
--- NOTE | 2025-02-01 12:15 | A.OFFVIS_ITS ---
Vital Signs 02/01/25 13:45 02/01/25 14:15 Height 5 ft 2 in Weight 231 lb 7.766 oz BMI 42.3 BP 136/76 132/76 Blood Pressure Location Rt brachial Rt brachial Position Sitting Sitting Pulse 80 Pulse Source Pulse Oximeter Pulse Oximetry (%) 96 Oxygen Delivery Method Room Air Intake Visit Reasons: DM Intake Note: Patient presents today for a follow-up on Type 2 Diabetes Mellitus: Last Diabetic eye exam was on: 07/31/2024, Getting monthly Eye Shots Last Podiatry exam was on: Patient does not see a Power Tong Operator Most recent HbA1c: 9.1%, 02/01/2025 Random Glucose- 122 mg/dL, Today Electric Meter Repairer Required: Yes Electric Meter Repairer Language: Nurse Epidemiologist Services: Electric Meter Repairer Present Electric Meter Repairer Name: RAYSHAWN Hooper/ANDRY PERDUE Accompanied by: Self / Same As Patient Allergies seasonal Allergy (Intermediate, Uncoded 02/01/25 13:45) cough HPI Comments Details: Patient is 74-year-old female with DM type 2 diagnosed 1993 who presents for management of diabetes. She was last seen in endo Clinic 09/21/2024 hemoglobin A1c 09/21/2024 8.6%. 01/21/24 9.3% Previous medication: Synjardy XR 25/1,000 not taking because can't tolerate nausea.Intolerant of regular metformin due to diarrhea Diabetes medications: Lantus 24 units Humalog 8 units Ac tid before meal Mounjaro 5.0 weekly She does not have her freestyle with her today. She was given a sample and was advised she can call [facility] if she has a sensor fall out early. She reports her sugars have been 200 occasionally close to 300, some readings be en 100s Positive Retinopathy: Last diabetic eye exam; one month ago, she is getting anti-VGEF therapy Has neuropathy left leg secondary to surgery. No pain, Podiatry: Does not see but would like referral as she had has difficulty bending over to trim her nails Has nephropathy followed by Nephrology Dr. Olivares at [facility] microalbumin Hypoglycemia: denies Hyperglycemia: + urinary frequency, + nocturia, denies polydypsia Diet has not been balanced she has a history of sleeve in 2019 Exercise: has not been walking. Planer Setter - CDE education: Yes Seen by bariatric surgeon 05/24. Meal plan prescribed: Breakfast- premier premade shake Lunch- meal delivery, choose protein and veg Dinner- Pure Protein bar She had difficulty following this plan but is working on reducing portions. [facility] Medical History Type 2 diabetes mellitus Panic attack Anxiety Obesity due to excess calories Asthma REY (obstructive sleep apnea) Morbid obesity Vitamin D deficiency Obesity Dyslipidemia Hypertension Diabetic polyneuropathy associated with type 2 diabetes mellitus Diabetes type 2, uncontrolled Surgical History Abdominal pain History of carpal tunnel release S/P trigger finger release H/O foot surgery History of dilatation and curettage History of sleeve gastrectomy History of esophagogastroduodenoscopy (EGD) History of eyelid surgery Hx of tubal ligation Hx of colonoscopy Family History Father Type II diabetes mellitus Obesity Mother HTN (hypertension) Brother Cancer Social History Household Members: Spouse Housing: Apartment Do you presently have visiting nurse or other home services: Yes Alcohol intake: never Patient Tobacco Use Status: Former Tobacco user Tobacco use type: Cigarette e-Cigarette/Vaping Use: Never Used service: No Current occupational status: unemployed Current occupation: rt handed Physical Exam Vital Signs: Last Vital Signs Pulse 80 02/01/25 13:45 BP 136/76 02/01/25 13:45 Pulse Ox 96 02/01/25 13:45 Oxygen Delivery Method Room Air 02/01/25 13:45 BMI result Body Mass Index 42.3 Const Other: Absence of Cushingoid features. Absence of acromegalic features. Neck exam reveals nl size thyroid about 15 gms. No thyroid nodules palpable. Heart S1 S2, Reg R/R. No M/R G. Skin exam reveals absence of vitiligo or acanthosis nigricans. No edema Visual exam of foot performed. No ulcerations or open lesions. No inter digit maceration or fissuring. No onychomycosis visible, has nailpolish on. no callouses. Sensation intact to monofilament exam. Vibratory sensation is normal with 128 Hz tuning fork. Pulses positive distally Results AMB Hemoglobin A1c AMB Hemoglobin A1c 9.1 % Last Edit by RAYSHAWN Hooper on 02/01/25 14:14 Results Reviewed Results Reviewed: Laboratory Last Values Glucose (Clinic) 122 mg/dL (60-115) H 02/01/25 13:54 Hgb A1c (Clinic) 9.1 % (4.0-6.0) H 02/01/25 13:56 Assessment & Plan Assessment & Plan (1) Type 2 diabetes mellitus: Code(s): E11.9 - Type 2 diabetes mellitus without complications Category: Medical Plan: 74-year-old type 2 diabetic with nephropathy, neuropathy and retinopathy. Neuropathy most likely secondary to previous surgery. She does not have her sensor today for review but reports the sugars can run as high as 200-300, some readings mid 150s She will return in 4 weeks with her c3 creationsyle sensor. She was given a sample and advised that it falls off early she can contact [facility] directly to replace this. She does have backup testing supplies. We will increase insulin Lantus 28 units, Humalog 10 units t.i.d. with meals and increase Mounjaro to 7.5 mg as she has not yet at target. Her weight is down 5 lb since initiating. will discuss starting an SGLT2 inhibitor at her next visit Orders: Orders AMB Glucose Monitoring Today E11.9 - Type 2 diabetes mellitus without complications AMB Hemoglobin A1c Today E11.9 - Type 2 diabetes mellitus without complications Medications: New tirzepatide (Mounjaro) 7.5 mg (0.5 mL) subcut QWEEK 28 days 2 mL 3RF Changed From insulin glargine (Lantus Solostar U-100 Insulin) 24 units (0.24 mL) subcut DAILY 9 mL 11RF To insulin glargine (Lantus Solostar U-100 Insulin) 28 units (0.28 mL) subcut DAILY 30 days 9 mL 11RF MDD 28 units From insulin lispro (Humalog U-100 Insulin) 8 UNITS (4 CLICKS) via CeQur device subcutaneously 3 times a day BEFORE MEALS 30 days 20 mL 11RF To insulin lispro (Humalog U-100 Insulin) 10 units tid before meals 30 days 20 mL 11RF MDD 30 Refilled blood-glucose sensor (FreeStyle Walter 3 Sensor device) As directed change every 15 days 2 ea 4RF Coding Level of Care Code Est Pt Level 4 (48059) Complex EM visit Add On G2211 Diagnoses Type 2 diabetes mellitus E11.9 Time Spent (min) 30 Comment Time spent reviewing labs/provider notes, face to face, chart doc
--- OUTSIDE RECORDS SUMMARY | 2025-02-01 13:44 | XMS_ITS | Encounter Summary ---
Author Organization [employer] Address [address] [facility] 7[address] [place] [address] Care Team Providers Care Speed Winder Name Role Phone Radha Bran MD Primary Care Provider + Encounter Details Date Type Department Care Team ([facility] st Contact Info) Description 08/25/[address] [facility] MEDICINE [address] [place], [place] [phone] Radha Bran MD [address] [place] [address] Social History Tobacco Use Types Packs/Day Years [...] Care Team (Late st Contact Info) Description 02/21/2025 9:00 AM EDT Office Visit [facility] ADULT DENTAL [address] [place] [address] Marisel Andujar DDS [address] [place] [address] 03/15/2025 9:00 AM EDT Office Visit [facility] MEDIC[facility] [address] [place] [address] Radha Bran MD [address] [place] [id number] documented as of this encounter Visit Diagnoses Not on filedocumented in this encounter Additional Health Concerns Assessment Noted Time PHQ-9 Depression Total Score: 13 024 10:37 AM EST documented as of this encounter Care Teams Speed Winder Relationship Specialty Start Date End Date Radha Bran MD [address] [place] [address] PCP - General Family Medicine 10/16/20 documented as of this encounter
[2025-02-01 13:45] VITALS: BP 136/76; PULSE 80; O2SAT 96; BMI 42.3
[2025-02-01 13:58] LABS: Glucose, Whole Blood 122 mg/dL (60-115)
[2025-02-01 14:15] VITALS: BP 132/76
== END 2025-02-01 14:16 | disposition home or self-care (01) ==
LOC: HO.ENCR 13:32
PROVIDERS: PCP Internal Medicine; Visit Provider Nurse Practitioner Adult Health
DX: E11.9 Type 2 diabetes mellitus without complications (principal)
CPT/HCPCS: 99214; G2211

== ENCOUNTER → 2025-02-01 13:28 | Outpatient (BNVA) | payer OTHER, SELFPAY | PROVIDERS: PCP Internal Medicine; Visit Provider Nurse Practitioner Adult Health | DX: E11.9 Type 2 diabetes mellitus without complications (principal); Z79.4 Long term (current) use of insulin | CPT/HCPCS: 82947; 83036; 99212 ==

== ENCOUNTER 2025-02-16 13:25 | Outpatient (AMB) | payer OTHER, SELFPAY ==
--- NOTE | 2025-02-16 13:28 | MHC.OFFVIS ---
Vital Signs 02/16/25 13:31 Height 5 ft 2 in Weight 231 lb 14.821 oz BMI 42.4 BP 128/74 Blood Pressure Location Lt brachial Position Sitting Pulse 95 Pulse Source Pulse Oximeter Pulse Oximetry (%) 95 Oxygen Delivery Method Room Air Intake Visit Reasons: DM Intake Note: Patient present today to follow up on Type 3 Diabetes Mellitus. Last Diabetic Eye exam: 07/31/2024 Last Podiatry Visit: Does not see Precision Machine Operator Random Glucose: mg/dl HgA1C: 9.1% 02/01/2025 Burlap Roll Coverer [id number] utilized Burlap Roll Coverer Required: Yes Burlap Roll Coverer Language: Vinyl Dipper Services: Burlap Roll Coverer Present Burlap Roll Coverer Name: Noel [id number] Information Interpreted: non-clinical & clinical Accompanied by: Self / Same As Patient Allergies seasonal Allergy (Intermediate, Uncoded 02/16/25 13:33) cough HPI Comments Details: Patient is 74-year-old female with DM type 2 diagnosed 1993 who presents for management of diabetes. She was last seen in endo Clinic 02/01/2025 at which time her MDI and Mounjaro were increased. hemoglobin A1c 02/16/25 % 09/21/2024 8.6%. 01/21/24 9.3% She presents several weeks early from her scheduled visit as she placed a freestyle 3 in his not certain how to get it has started. Her glucose in the clinic today is 120 and she reports she does not feel low. Previous medication: Synjardy XR 25/1,000 not taking because can't tolerate nausea.Intolerant of regular metformin due to diarrhea Diabetes medications: Lantus 28 units Humalog 10 units Ac tid before meal Mounjaro 7.5 weekly One day available on sensor download 172 average, 8%very high, 26% high 66% in range 0% lows Positive Retinopathy: Last diabetic eye exam; one month ago, she is getting anti-VGEF therapy Has neuropathy left leg secondary to surgery. No pain, Podiatry: Does not see but would like referral as she had has difficulty bending over to trim her nails Has nephropathy followed by Nephrology Dr. Olivares at [facility] microalbumin Hypoglycemia: denies Hyperglycemia: + urinary frequency, + nocturia, denies polydypsia Diet has not been balanced she has a history of sleeve in 2019 Exercise: has not been walking. Project Manager Entertainment And Media - CDE education: Yes Seen by bariatric surgeon 05/24. Meal plan prescribed: Breakfast- premier premade shake Lunch- meal delivery, choose protein and veg Dinner- Pure Protein bar She had difficulty following this plan but is working on reducing portions. [facility] Medical History Type 2 diabetes mellitus Panic attack Anxiety Obesity due to excess calories Asthma REY (obstructive sleep apnea) Morbid obesity Vitamin D deficiency Obesity Dyslipidemia Hypertension Diabetic polyneuropathy associated with type 2 diabetes mellitus Diabetes type 2, uncontrolled Surgical History Abdominal pain History of carpal tunnel release S/P trigger finger release H/O foot surgery History of dilatation and curettage History of sleeve gastrectomy History of esophagogastroduodenoscopy (EGD) History of eyelid surgery Hx of tubal ligation Hx of colonoscopy Family History Father Type II diabetes mellitus Obesity Mother HTN (hypertension) Brother Cancer Social History Household Members: Spouse Housing: Apartment Do you presently have visiting nurse or other home services: Yes Alcohol intake: never Patient Tobacco Use Status: Former Tobacco user Tobacco use type: Cigarette e-Cigarette/Vaping Use: Never Used service: No Current occupational status: unemployed Current occupation: rt handed Physical Exam Vital Signs: BMI result Body Mass Index 42.4 Const Other: Absence of Cushingoid features. Absence of acromegalic features. Neck exam reveals nl size thyroid about 15 gms. No thyroid nodules palpable. Heart S1 S2, Reg R/R. No M/R G. Skin exam reveals absence of vitiligo or acanthosis nigricans. No edema Foot exam no ulcers, open area or calluses. Good cap refill Assessment & Plan Assessment & Plan (1) Type 2 diabetes mellitus: Code(s): E11.9 - Type 2 diabetes mellitus without complications Category: Medical Plan: 74-year-old type 2 diabetic with nephropathy followed by Nephrology, retinopathy and neuropathy with improving glucose numbers. Today she presents with a Mobi Walter 3 which she self inserted and did not scan afterwards. The device was scanned. She has been on a freestyle 2 in the past and I advised her that this freestyle we will give her a continuous glucose tracing. She placed the device more in intramuscular tissue and I recommended that she come back for a full training with the Tania Cage CDE in approximately 12-13 days when the sensors due to . She was asked to bring his sensor in with her. Continue current dosing She has follow up with bariatric surgeon and was asked to have her annual bariatric blood work done through them The patient had an opportunity to ask questions regarding treatment plan. The patient expressed understanding and agreement with the above treatment plan. The patient is aware they should contact our office by phone for worsening glucose readings or for any low blood sugars which may warrant a change in diabetes medication. Compliance is encouraged with medications and any followup testing/consults which may have been ordered. Coding Level of Care Code Est Pt Level 3 (47305) Complex EM visit Add On G2211 Diagnoses Type 2 diabetes mellitus E11.9 Time Spent (min) 20 Comment Time spent reviewing labs/provider notes, face to face, chart doc
[2025-02-16 13:31] VITALS: BP 128/74; PULSE 95; O2SAT 95; BMI 42.4
[2025-02-16 13:41] LABS: Glucose, Whole Blood 120 mg/dL (60-115)
--- OUTSIDE RECORDS SUMMARY | 2025-02-16 14:33 | XMS_ITS | Encounter Summary ---
Author Organization [employer] Address [address] [facility] 7[address] [place] [address] Care Team Providers Care Hospitality Director Name Role Phone Radha Bran MD Primary Care Provider + Encounter Details Date Type Department Care Team ([facility] st Contact Info) Description 08/25/2024 Orders Only [facility] MED[facility]INE [address] [place], [place] [phone] Radha Bran MD [address] [place] [address] Social History Tobacco Use Types Packs/Day Years [...] Description 02/21/2025 9:00 AM EDT Office Visit [facility] ADULT DENTAL [address] [place] [address] Marisel Andujar DDS [address] [place] [address] 03/15/2025 9:00 AM EDT Office Visit [facility] MEDICINE [address] [place] [address] Radha Bran MD [address] [place] [phone] documented as of this encounter Visit Diagnoses Not on filedocumented in this encounter Additional Health Concerns Assessment Noted Time PHQ-9 Depression Total Score: 13 024 10:37 AM EST documented as of this encounter Care Teams Hospitality Director Relationship Specialty Start Date End Date Radha Bran MD [address] [place] [address] PCP - General Family Medicine 10/16/20 documented as of this encounter
== END 2025-02-16 14:01 | disposition home or self-care (01) ==
LOC: HO.ENCR 13:25
PROVIDERS: PCP Internal Medicine; Visit Provider Nurse Practitioner Adult Health
DX: E11.9 Type 2 diabetes mellitus without complications (principal)
CPT/HCPCS: 99213; G2211

== ENCOUNTER → 2025-02-16 13:25 | Outpatient (BNVA) | payer OTHER, SELFPAY | PROVIDERS: PCP Internal Medicine; Visit Provider Nurse Practitioner Adult Health | DX: E11.9 Type 2 diabetes mellitus without complications (principal) | CPT/HCPCS: 82947; 99212 ==

== ENCOUNTER 2025-03-01 12:19 | Outpatient (AMB) | payer OTHER, SELFPAY ==
--- NOTE | 2025-03-01 12:43 | A.OFFVIS_ITS ---
Intake Vital Signs 3 03/01/25 12:46 Weight 231 lb Intake Visit Reasons: DM Wool Washing Machine Operator Required: Yes Wool Washing Machine Operator Language: Pickling Solution Maker Name: Dominguez Britt Accompanied by: Self / Same As Patient Allergies seasonal Allergy (Intermediate, Uncoded 02/16/25 13:33) cough HPI Comprehensive Diabetes Asmnt Most Recent Diabetes Results: 2 Hemoglobin A1c 7.1 % 07/11/19 Microalb/Creat Ratio, (<30) 45.1 ug/mg cr H 10/20/23 Cholesterol, (<200) 126 mg/dL 11/09/24 HDL Cholesterol, (>40) 45 mg/dL 11/09/24 Triglycerides, (<150) 98 mg/dL 11/09/24 Creatinine, (0.5-1.4) 0.62 mg/dL 11/09/24 BUN, (9-16) 17 mg/dL H 11/09/24 Sodium, (135-145) 142 mmol/L 11/09/24 Potassium, (3.3-5.1) 3.8 mmol/L 11/09/24 Chloride, (96-108) 111 mmol/L H 11/09/24 Carbon Dioxide, (22-29) 25 mmol/L 11/09/24 Calcium, (8.4-10.2) 8.9 mg/dL Δ 11/09/24 AST, (5-31) 23 U/L 11/09/24 ALT, (0-31) 30 U/L 11/09/24 Total Protein, (6.5-8.0) 7.4 g/dL 11/09/24 Albumin, (3.5-5.0) 3.5 g/dL 11/09/24 [facility] Medical History Type 2 diabetes mellitus Panic attack Anxiety Obesity due to excess calories Asthma REY (obstructive sleep apnea) Morbid obesity Vitamin D deficiency Obesity Dyslipidemia Hypertension Diabetic polyneuropathy associated with type 2 diabetes mellitus Diabetes type 2, uncontrolled Surgical History Abdominal pain History of carpal tunnel release S/P trigger finger release H/O foot surgery History of dilatation and curettage History of sleeve gastrectomy History of esophagogastroduodenoscopy (EGD) History of eyelid surgery Hx of tubal ligation Hx of colonoscopy Family History Father Type II diabetes mellitus Obesity Mother HTN (hypertension) Brother Cancer Social History Household Members: Spouse Housing: Apartment Do you presently have visiting nurse or other home services: Yes Alcohol intake: never Patient Tobacco Use Status: Former Tobacco user Tobacco use type: Cigarette e-Cigarette/Vaping Use: Never Used service: No Current occupational status: unemployed Current occupation: rt handed Assessment & Plan Assessment & Plan (1) Type 2 diabetes mellitus: Code(s): E11.9 - Type 2 diabetes mellitus without complications Plan: Personal Continuous Glucose Monitor: Patients CGM information reviewed, Pt uses Spark with [place] Patient's glucose is well controlled. Patient does have 1 episode of hypoglycemia Instructed how to treat hypoglycemia given: DIABETES PROBLEMS [facility]OMECARE INSTRUCTIONS Hypo instructions ? When first signs of insulin reaction occur, immediately drink orange juice or cola, or suck on a sugar cube, but only if the person is conscious. ? Person with diabetes should continue taking insulin when ill, unless he/she is not able to eat.? Regularly check blood sugar or urine for sugar and acetone during illness. ? Exercise regularly. ? Pay special attention to the feet.? Avoid cuts, sores, blisters, ill- fitting shoes, or going barefoot.? Promptly treat injuries to the feet. ? Take medications as directed by physician. ? Drink extra water or noncaffeinated, nonsugared drinks to prevented hydration. Signs and symptoms of low blood sugar (happen quickly) Each person's reaction to low blood sugar is different. Learn your own signs and symptoms of when your blood sugar is low. Taking time to write these symptoms down may help you learn your own symptoms of when your blood sugar is low. From milder, more common indicators to most severe, signs and symptoms of low blood sugar include: Feeling shaky Being nervous or anxious Sweating, chills and clamminess Irritability or impatience Confusion Fast heartbeat Feeling lightheaded or dizzy Hunger Nausea Color draining from the skin (pallor) Feeling Sleepy Feeling weak or having no energy Blurred/impaired vision Tingling or numbness in the lips, tongue, or cheeks Headaches Coordination problems, clumsiness Hypoglycemia or blood glucose under 70 mg/dL use the rule of 15's: If you have your blood glucose meter test your blood glucose, if you do not have your meter still follow below instruction: Keep quick-sugar foods with you at all times.? Take 15 grams of fast acting carbohydrates. Examples are 4 ounces of fruit juice or regular soda pop, 8 ounces fat-free milk, 1 tablespoon of table sugar, honey or corn syrup, jam, one miniature box of raisins, 7-8 gumdrops or Life Savers candy, 4 glucose tablets, and glucose gel.? Retest blood glucose in 15 minutes, if blood glucose is still under 80 mg/dL,repeat rule of 15's. If blood glucose is under 50, take 30 grams of fast acting carbohydrates If you are having hypoglycemia, or insulin reaction, more that a few times a week, call MD or agricultural extension educator F/U BG check Ma[place] hypoglycemia handout given to patient Pt has run out of Fanmode insulin delivery patches. Message sent to provider to send prescription. Patient able to insert sensor independently at home without issue.? Portions of this note were created using voice recognition software, please excuse any words or phrases that may have been misinterpreted. Patient Instructions: Reducir Lankrzysztof a 18 unidades al d?a Coding Level of Care Code Est Pt Level 1 (88280) Diagnoses Type 2 diabetes mellitus E11.9
--- OUTSIDE RECORDS SUMMARY | 2025-03-01 12:54 | XMS_ITS ---
Author Name Maribel Vann NP Address [address] [place] [address] Phone [phone] [facility] Care Team Providers Care Detasseling Crew Supervisor Name Role Phone Maribel Vann Unavailable [phone] [facility] Unavailable [place], [facility] Unavailable [phone] [place] Ruiz [place] Unavailable [phone] Unavailable Unavailable [phone] Unavailable Unavailable [phone] [employer] Unavailable [phone] Pedro Mohamud Unavailable [phone] Radha Bran Unavailable Reason for Referral Not Available Allergies, adverse reactions, alerts No known allergies History of medication use Medication Class Instructions Start Date End Date Fluocinolone Acetonide Body 0.01 % Oil APPLY BOTTLE TOPICALLY TO THE AFFECTED AREA IN THE MORNING 2022-08-13 No Data Available B-D KURTIS 2ND GEN PEN NDL [id number] USE TO INJECT FOUR TIMES DAILY 2022-08-28 [...] Data Available 2023-06-03 No D aries Available SaltStackTouch Verio Flex System w/Device Kit USE TO [...] time a day 2024-04-21 No Data Available [place] Nasal [place] 0.65 % Solution Nasal 2 sprays intranasally [...] List Problem Status Onset Date Resolved Date Synopsis Obstructive sleep apnea Active 2023-02-06 N/A Has CPAP using n ightly Hypertension Active 2023-02-06 N/A Has not been taking BP medication aftersurgery on broken footUPDATE 4Reports compliance now MDD (major depressive disorder), recurrent episode, mild Active 2023-04-09 N/A EscitalopramLive s w spouseHas declined therapist Chronic left-sided headache Active 2024-04-21 N/A headache to left side x 4 months. Has [...] mucosal thickening andprobable small bilateral nasal polyps. Morbid (severe) obesity due to excess calories Active 2023-02-03 N/A BMI: 43.16Ed imp ortance of healthy weightEd re diet and activityHad bariatric surgery circa 2019?Ed re diet, activitySTABLE - will talk more next time Urinary incontinence Active 2023-02-06 N/A Wear s rafaela padNeeds -Bladder pads (female) 5 per 24 hours-chux pads 3 per 24 hours 10/21/24reports incontinence supplies ordered 2 months ago by [facility], but has not received yet. 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, without long-term current use of insulin Active 2023-02-06 N/A Random glucose 1 50-200's routinelyhas insulin pump and uses injections lispro/lantuswears glassesendocrinologist 11/24/24feels well, denies hyperglycemic episodescontinues to use CGM and insulin pump+hypoglycemia x >3x/monthreports feeling dizzy, diaphoretic and shaky when BS <100has had 3 readings in the 60's in the past monthdoes drink juice to help increase sugars A1c 6.9 05/24/24needs CGM sensor refill, refill sentPLAN: if hypoglycemia continues recommend decreasing lantus Estimated Glomerular Filt Rate >60 Asthma Active 2023-02-06 N/A uses inhaler F lovent BIDuses nebulizer 11/24/24denies SOB Seronegative rheumatoid arthritis Active 2023-09-24 N/A previously diagnosed 01/20/23 [facility]rman[facility] painstablewill f/u with Rheum 11/2024 Low vitamin D level Active 2024-11-24 N/A Vitam in D 25-OH Total 19.7 (L) >30 ng/mL start vitamin d3 supplements Other problems related to medical facilities and other health care Active 2024-05-03 N/A PAIN CO NTINGENCY PLANLast updated: 11/24/2024DELETE ME!!!Why was the member in the hospital or ER most recently? Why are they most likely to go back?Member to call for the following symptoms: Decreased mobility/ Increased pain/ StiffnessPlanned intervention: Encourage extra fluid intake / Tylenol 1,000mg q6h/ Lidoderm patch 4% to affected area/ Voltaren gel to affected area/ Prednisone 50mg daily for 5 days Encounters Encounters Type Facility Date of Service Diagnosis/Co mplaint No Data Available [facility], ([place]) 04/[place]/2023 Morbid (severe) obesity due to excess caloriesBody mass index (BMI) 40.0-44.9, adultType 2 diabetes w unsp diabetic retinopathy w macular edemaMajor depressive disorder, recurrent, mildIron deficiency anemia, unspecifiedUnspecified urinary incontinenceUnspecified asthma, uncomplicatedObstructive sleep apnea (adult) (pediatric)2-part nondisp fx of surg nk of melecio luna, 7thDEssential (primary) hypertensionHistory of fallingDifficulty in walking, not elsewhere classified No Data Available [facility] 04[place]2023 No Data Available [facility]2023 No Data Available [facility]2023 No Data Available [facility]2023 No Data Available [facility]2023 No Data Available [facility]/20[place] Estab. patient 20-29min; 1 stable chronic or 2 minor; add add modifier 95 for video, modifier 93 for phone [facility] 05/06/2023 Type 2 diabetes w unsp diabe tic retinopathy w macular edemaMorbid (severe) obesity due to excess caloriesBody mass index (BMI) 40.0-44.9, adultMajor depressive disorder, recurrent, mildIron deficiency anemia, unspecifiedUnspecified urinary incontinenceUnspecified asthma, uncomplicatedObstructive sleep apnea (adult) (pediatric)2-part nondisp fx of surg nk of melecio tiwarier, 7thDEssential (primary) hypertensionHistory of fallingDifficulty in walking, not elsewhere classified Estab. patient 20-29min; 1 stable chronic or 2 minor; add add modifier 95 for video, modifier 93 for phone [facility] [place] 05/06/2023 Estab. patient 20-29min; 1 stable chronic or 2 minor; add add modifier 95 for video, modifier 93 for phone [facility] 05[place]06/20[place] Estab. patient 20-29min; 1 stable chronic or 2 minor; add add modifier 95 for video, modifier 93 for phone [facility]2023 No Data Available [facility] 06[place]15/2023 History of fallingDifficulty in walking, not elsewhere classified No Data Available [facility] 06[place]2023 No Data Available [facility]2023 History of fallingDifficulty in walking, not elsewhere classifiedPersonal history of (healed) traumatic fracture No Data Available [facility]2023 No Data Available [facility] No Data Available [facility] No Data Available [facility]2023 Difficulty in walking, not elsewhere classifiedHistory of fallingPersonal history of (healed) traumatic fracture No Data Available [facility]20[place] Estab. patient 30-39min; chronic exacerbation, 2 stable chronic or 1 acute illness add add modifier 95 for video, (do not use for phone, instead use [id number]) [facility]2023 Morbid (severe) obesity due to excess caloriesBariatric surgery statusIron deficiency anemia, unspecifiedType 2 diabetes w unsp diabetic retinopathy w macular edemaUnspecified urinary incontinenceUnspecified asthma, uncomplicatedObstructive sleep apnea (adult) (pediatric)2-part nondisp fx of surg nk jacoby luna, 7thDEssential (primary) hypertensionHistory of fallingDifficulty in walking, not elsewhere classifiedPersonal history of (healed) traumatic fractureBody mass index (BMI) 40.0-44.9, adult Estab. patient 30-39min; chronic exacerbation, 2 stable chronic or 1 acute illness add add modifier 95 for video, (do not use for phone, instead use [id number]) [facility] [place] Estab. patient 30-39min; chronic exacerbation, 2 stable chronic or 1 acute illness add add modifier 95 for video, (do not use for phone, instead use [id number]) [facility] Estab. patient 30-39min; chronic exacerbation, 2 stable chronic or 1 acute illness add add modifier 95 for video, (do not use for phone, instead use [id number]) [facility] Estab. patient 30-39min; chronic exacerbation, 2 stable chronic or 1 acute illness add add modifier 95 for video, (do not use for phone, instead use [id number]) [facility] 07[place]15/2023 No Data Available [facility] 08[place]14/2023 Morbid (severe) obesity due to excess caloriesBariatric surgery statusUnspecified asthma, uncomplicatedHistory of fallingDifficulty in walking, not elsewhere classifiedPersonal history of (healed) traumatic fracture No Data Available [facility] 08/14/2023 No Data Available [facility] 09/09/2023 Urinary tract infection, sit e not specified No Data Available [facility] 09[place]10/2023 Urinary tract infection, sit e not specifiedHistory of fallingDifficulty in walking, not elsewhere classifiedPersonal history of (healed) traumatic fracture No Data Available [facility] 09[place]10/2023 Estab. patient 30-39min; chronic exacerbation, 2 stable chronic or 1 acute illness add add modifier 95 for video, (do not use for phone, instead use [id number]) [facility] 09/18/2023 Urinary tract infection, sit e not [...] (do not use for phone, instead use [id number]) [facility] [place] 09[place]18/2023 Estab. patient 30-39min; chronic exacerbation, 2 stable chronic or 1 acute illness add add modifier 95 for video, (do not use for phone, instead use [id number]) [facility] [place] 09/18/2023 Estab. patient 30-39min; chronic exacerbation, 2 stable chronic or 1 acute illness add add modifier 95 for video, (do not use for phone, instead use [id number]) [facility] [place] 09[place]18/20[place] Estab. patient 30-39min; chronic exacerbation, 2 stable chronic or 1 acute illness add add modifier 95 for video, (do not use for phone, instead use 73623-57) [facility] [place] 09[place]18/20[place] Estab. patient 30-39min; chronic exacerbation, 2 stable chronic or 1 acute illness add add modifier 95 for video, (do not use for phone, instead use 81690-64) [facility] [place] 09[place]18/2023 Estab. patient 30-39min; chronic exacerbation, 2 stable chronic or 1 acute illness add add modifier 95 for video, (do not use for phone, instead use 33251-54) [facility] [place] 09/18/2023 Estab. patient 30-39min; chronic exacerbation, 2 stable chronic or 1 acute illness add add modifier 95 for video, (do not use for phone, instead use [id number]) [facility]18[place] Estab. patient 30-39min; chronic exacerbation, 2 stable chronic or 1 acute illness add add modifier 95 for video, (do not use for phone, instead use [id number]) [facility]18[place] No Data Available [facility] Morbid (severe) obesity due to excess caloriesBariatric surgery statusType 2 diabetes w unsp diabetic retinopathy w macular edemaUnspecified urinary incontinenceUnspecified asthma, uncomplicatedObstructive sleep apnea (adult) (pediatric)Essential (primary) hypertensionBody mass index (BMI) 40.0-44.9, adultMajor depressive disorder, recurrent, mildOther problems related to medical facilities and other health careHeadache, unspecifiedOther chronic pain No Data Available [facility]20[place] No Data Available [facility] No Data Available [facility] No Data Available [facility] No Data Available [facility] No Data Available [facility] 04[place] No Data Available [facility]/03[place]2024 Type 2 diabetes w unsp diabe tic retinopathy w macular edemaAllergic contact dermatitis due to plants, except foodEncounter for other specified aftercareOther problems related to medical facilities and other health careLong term (current) use of insulin No Data Available [facility] 05[place]03[place] No Data Available [facility]2024 Flu due to unidentified influenza virus w oth resp manifestPersons encountering health services in other specified circumstancesOther problems related to medical facilities and other health care No Data Available [facility]20[place] No Data Available [facility]20[place] Estab. patient 10-29min; 1 minor problem; add add modifier 95 for video, modifier 93 for phone [facility] [place]2024 Type 2 diabetes w unsp diabe tic retinopathy w macular edemaUnspecified asthma, uncomplicatedObstructive sleep apnea (adult) (pediatric)Body mass index (BMI) 40.0-44.9, adultOther problems related to medical facilities and other health care Estab. patient 10-29min; 1 minor problem; add add modifier 95 for video, modifier 93 for phone [facility] [place]/22/20[place] Estab. patient 10-29min; 1 minor problem; add add modifier 95 for video, modifier 93 for phone [facility] [place]/22/20[place] Estab. patient 10-29min; 1 minor problem; add add modifier 95 for video, modifier 93 for phone [facility] [place]/22/20[place] Estab. patient 10-29min; 1 minor problem; add add modifier 95 for video, modifier 93 for phone [facility] [place]/21/2024 Type 2 diabetes w unsp diabe tic retinopathy w macular edemaOther female genital prolapseUnspecified urinary incontinenceOther problems related to medical facilities and other health care Estab. patient 10-29min; 1 minor problem; add add modifier 95 for video, modifier 93 for phone [facility] [place]21[place]20[place] Estab. patient 10-29min; 1 minor problem; add add modifier 95 for video, modifier 93 for phone [facility] [place] 11/24/2024 Type 2 diabetes w unsp diabe tic retinopathy w macular edemaUnspecified asthma, uncomplicatedRheumatoid arthritis without rheumatoid factor, unspecified siteOther specified abnormal findings of blood chemistryOther problems related to medical facilities and other health care Estab. patient 10-29min; 1 minor problem; add add modifier 95 for video, modifier 93 for phone [facility] [place] 11/24/2024 Vital Signs Date of Collection Vitals 2023-04-09 [...] date Servicing provider Phone# No Data Available [id number] 2023-04-09 No Data Available No Data Available [...] Available Advance care planning discussed and documented advance care plan or surrogate decision-maker was documented in the medical record. (1123F) 1123F 2023-04-09 No Data Available No Data Availa ble Pain Assessment - Pain Documented on a Pain Scale (1125F) 1125F 2023-04-09 No Data Available No Data Carli ilable Estab. patient 20-29min; 1 stable chronic or 2 minor; add add modifier 95 for video, modifier 93 for phone [id number] 2023-05-06 No Data Available No Data Availa ble Medications prescribed in hospital were reviewed and reconciled against what they were taking prior to admission during today's visit. (1111F) 1111F 2023-05-06 No Data Available No Data Availa ble Advance care planning discussed and documented advance care plan or surrogate decision-maker was documented in the medical record. (1123F) 1123F 2023-05-06 No Data Available No Data Availa ble Medication List Documented (1159F) 1159F 2023-05-06 No Data Available No Data Carli ilable No Data Available [id number] 2023-06-15 No Data Available No Data Available Medication List Documented (1159F) 1159F 2023-06-15 No Data Available No Data Carli ilable No Data Available [id number] 2023-06-16 No Data Available No Data Available Medication List Documented (1159F) 1159F 2023-06-16 No Data Available No Data Carli ilable Pain Assessment - Pain Documented on a Pain Scale (1125F) 1125F 2023-06-16 No Data Available No Data Carli ilable BMI obtained (3008F) 3008F 2023-06-16 No Data Availab le No Data Available No Data Available [id number] 2023-07-08 No Data Available No Data Available Medication List Documented (1159F) 1159F 2023-07-08 No Data Available No Data Carli ilable Estab. patient 30-39min; chronic exacerbation, 2 stable chronic or 1 acute illness add add modifier 95 for video, (do not use for phone, instead use [id number]) [id number] 2023-07-15 No Data Available No Data Availa [...] No Data Carli ilable No Data Available [id number] 2023-08-14 No Data Available No Data Available Medication List Documented (1159F) 1159F 2023-08-14 No Data Available No Data Carli ilable No Data Available [id number] 2023-09-09 No Data Available No Data Available No Data Available [id number] 2023-09-10 No Data Available No Data Available Medication List Documented (1159F) 1159F 2023-09-10 No Data Available No Data Carli ilable Estab. patient 30-39min; chronic exacerbation, 2 stable chronic or 1 acute illness add add modifier 95 for video, (do not use for phone, instead use [id number]) [id number] 2023-09-18 No Data Available No Data Availa [...] ble Advance care planning discussed and documented advance care plan or surrogate decision-maker was documented in the medical record. (1123F) 1123F 2023-09-18 No Data Available No Data Availa ble Pain Assessment - Pain Documented on a Pain Scale (1125F) 1125F 2023-09-18 No Data Available No Data Carli ilable Functional Status Assessed (1170F) 1170F 2023-09-18 No Data Available No Data Avail able No Data Available [id number] 2024-04-21 No Data Available No Data Available [...] le No Data Available No Data Available [id number] 2024-05-03 No Data Available No Data Available Medication List Documented (1159F) 1159F 2024-05-03 No Data Available No Data Carli ilable No Data Available [id number] 2024-08-26 No Data Available No Data Available [...] 95 for video, modifier 93 for phone [id number] 2024-09-22 No Data Available No Data Availa [...] 95 for video, modifier 93 for phone [id number] 2024-10-21 No Data Available No Data Availa ble Medication List Documented (1159F) 1159F 2024-10-21 No Data Available No Data Carli ilable Estab. patient 10-29min; 1 minor problem; add add modifier 95 for video, modifier 93 for phone [id number] 2024-11-24 No Data Available No Data Availa ble Medication List Documented (1159F) 1159F 2024-11-24 No Data Available No Data Carli ilable [...] shoulder 2023-09-09 13:16:02 Follow up plan for a abby symptoms: 7:38 minutesUTI (urinary tract infection) 2023-09-10 [...] Patient Education to avoid future hospitalization: Call [facility] if symptoms of illness develop.History of [...] modifier 95Advance care planning discussed and documented advance care plan or surrogate decision-maker was documented in the medical record. (1123F)Pain Assessment - Pain Documented (1125F)Continue to see PCP. Follow-up with [facility] as needed for any acute or disease [...] units TID AC meals and FU with melon packer in February,Wears rafaela paduses inhaler Flovent BIDHas CPAP using nightlyContinue lovenox as directedAdvancing home PTencouraged UE activity as toleratedHas not been taking BP medication since surgery 2 months ago on broken footApril 2022 had a bad fall on steps at entrance to home. Fractured L foot, L?knee, L shoulderStill unable to walkUsing wheelchairDeaffinity health partners productsEscitalopramWimoreno think about whether she wants a therapist 2023-05-06 08:06:21 Discharge medication s reconciled with current medication listTelevideo 20-29min; 1 stable chronic or 2 minor; add modifier 95Advance care planning discussed and documented advance care plan or surrogate decision-maker was documented in the medical record. (1123F)Advance care planning discussed and documented in the medical record beneficiary/patient did not wish to or was unable to provide an advance care plan or name a surrogate decision-maker. (1124F)Discharge medications reconciled with current medication listTelevideo 20-29min; 1 stable chronic or 2 minor; add modifier 95Advance care planning discussed and documented advance care plan or surrogate decision-maker was [...] units TID AC meals and FU with melon packer in February,Wears rafaela padNeeds chux pads, XL pull-ups, gloves XLuses inhaler Flovent BIDHas CPAP using nightlyContinue lovenox as directedAdvancing home PTencouraged UE activity as toleratedHas not been taking BP medication since surgery 2 months ago on broken footApril 2022 had a bad fall on steps at entrance to home. Fractured L foot, L?knee, L shoulderStill unable to walkUsing wheelchairNow [facility] suzyEscitalopramRex think about whether she wants a therapist 2023-06-15 13:39:58 Phone (patient, pare nt, or guardian); 5-10 minutes of medical discussion (no modifier 95)Continue to see PCP. Follow-up with [facility] as needed for any acute or disease education needs that may arise 23/03.November 2022 had a bad fall on steps at entrance to home. Fractured L foot, L?knee, L shoulderStill unable to walkUsing ggueazgqzz89/16/2023er son, can only walk very short distances [...] unable to walkUsing wheelchairNow [facility]23er son, can only walk very short [...] and we need videocall. Tablet needs a insulation cupola charger, will send and schedule videocall for [...] modifier 95Advance care planning discussed and documented advance care plan or surrogate decision-maker was [...] unable to walkUsing wheelchairNow [facility]3Per son, can only walk very short distances w a walker, otherwise uses WC. In home may use walker or WC.Pt requesting electric WC.Cont using caution w walker or WC, will FU re possible need for more PT.3Cannot use self-propelled WC due to having injured left shoulder. unable to push a WC for her.In need of an electric WC or a scooter.In the home can barely get around w a walker but with pain and does not always tolerate.Declines productsEscitalopramWill think about whether she wants a therapist4/6/2023Fractured left leg in 3 places and had surgery - also damaged left shoulder.Had PT on leg but not shoulder. Can refer to PT but after she returns from [place] in .Can start in October. 2023-08-14 12:38:06 [...] unable to walkUsing wheelchairNow [facility]06/15/2023er son, can only walk very short [...] and we need videocall. Tablet needs a insulation cupola charger, will send and schedule videocall for [...] 09/10/23.UPDATE 09/10/2023t has not yet gone to pickle solution maker prescription. Feels about the same. Education about [...] modifier 95Advance care planning discussed and documented advance care plan or surrogate decision-maker was documented in the medical record. (1123F)Advance care planning discussed and documented in the medical record beneficiary/patient did not wish to or was unable to provide an advance care plan or name a surrogate decision-maker. (1124F)Pain Assessment - NO pain documented (1126F)Continue to see PCP. Follow-up with [facility] as needed for any acute or disease education needs that may arise.09/09/23: Malodorous dark urine, Left flank painWill start nitrofurantoin.Increase water and rest.Tylenol.F/U with [facility]DR[facility] 09/10/23.UPDATE 09/10/2023t has not yet gone to pickle solution maker prescription. Feels about the same. Education about [...] unable to walkUsing wheelchairNow having PT [facility]3Per son, can only walk very short [...] and we need videocall. Tablet needs a insulation cupola charger, will send and schedule videocall for [...] units TID AC meals and FU with melon packer Reports stableWears rafaela padNeeds chux pads, XL pull-ups, gloves XLuses inhaler Flovent BIDHas CPAP using nightlyContinue lovenox as directedAdvancing home PTencouraged UE activity as toleratedHas not been taking BP medication aftersurgery on broken footUPDATE 4Reports compliance nowApril 2022 had a bad fall on steps at entrance to home. Fractured L lower leg, L shoulderStill unable to walkUsing wheelchairNow [facility], can only walk very short [...] and we need videocall. Tablet needs a insulation cupola charger, will send and schedule videocall for [...] will schedule in-home eval. 09/18/2023Douglas call for scooter eval. Pt still having [...] 09/10/23.UPDATE 09/10/2023t has not yet gone to pickle solution maker prescription. Feels about the same. Education about [...] individual diagnosis for contingency plan.previously diagnosed 01/20/23 [place] painstable 2024-04-21 09:19:41 Phone (patient, pare nt, or guardian); 5-10 minutes of medical discussion (no modifier 95)Continue to see PCP. [facility] [...] units TID AC meals and FU with melon packer Reports stableWears rafaela padNeeds chux pads, XL [...] modifier 95)Continue to see PCP. Follow-up with [facility] as needed for any acute or disease [...] ResolvedNext Tran scheduled appt/call: Patient education provided: Y lynn call us if similar situation arises in future. Avoid this plant in the futureHow else can we help? Refill (See DM)Member trained on use of R ed Button for urgent needs and provided with [employer] phone # as an alternative method to [...] units TID AC meals and FU with melon packer Reports stable09/22/24feels well, denies hypo/hyperglycemic episodescontinues to use CGM and insulin pump A1c 6.9 05/24/24uses inhaler Flovent BIDuses nebulizer 09/22/24denies SOBHas CPAP using nightlyCOPD CONTINGENCY PLANLast updated: 09/22/2024Meta to call for the following symptoms: Increased cough / WheezingPlanned intervention: Increase use of albuterol inhaler [...] incontinence supplies ordered 2 months ago by [facility], but has not received yet. Is voiding on bed d/t incontinencePLAN: incontinence supplies ordered todayRandom glucose 150-200's routinelyhas insulin pump and uses injections lispro/lantuswears glassesendocrinologist 10/21/24fe well, denies hyperglycemic episodescontinues to use CGM and insulin pump+hypoglycemia x >3x/monthreports feeling dizzy, diaphoretic and shaky when BS <100has had 3 readings in the 60's in the past monthdoes drink juice to help increase sugars A1c 6.9 05/24/24needs CGM sensor refill, refill sentPLAN: if hypoglycemia continues recommend decreasing lantusDIABETES CONTINGENCY PLANLast updated: 10/21/2024Member to call for the following symptoms: Blood sugar <70 / Blood sugar >300 Planned intervention: for BS <70 Decrease long-acting insulin [...] insulin pump and uses injections lispro/lantuswears glassesendocrinologist 11/24/24fe well, denies hyperglycemic episodescontinues to use CGM and insulin pump+hypoglycemia x >3x/monthreports feeling dizzy, diaphoretic and shaky when BS <100has had 3 readings in the 60's in the past monthdoes drink juice to help increase sugars A1c 6.9 05/24/24needs CGM sensor refill, refill sentPLAN: if hypoglycemia continues recommend decreasing lantususes inhaler Flovent BIDuses nebulizer 11/24/24denies SOBpreviously diagnosed 01/20/23 [place] [facility] Ctrmanage painstablewill f/u with Rheum 11/2024Vitamin D [...]
--- OUTSIDE RECORDS SUMMARY | 2025-03-01 12:55 | XMS_ITS | Data Portability ---
Author Organization [employer] [facility], [facility] Address [address] [place] [phone] Care Team Providers Care Bacteriology Research Assistant Name Role Phone [facility] Referring Provider [phone] [facility] Referring Provider Assessment Encounter Date Assessment Date Assessment LastModified by Organization Details LastModified Time 03/17/2022 03/17/2022 I have reviewed and agree with the Assessment and Plan as documented by the Hog Sawyer. I provided real -time medical direction via [...] go to the ER- report called to [place] [facility] [email or web address] Not available 03/18/2022 21:31:13 Plan of Treatment Reminders Order Date Submit Date Provider Last Modified By Organization Details Last Modified Time Details Appointments None recorded. Lab None recorded. Referral None recorded. Procedures None recorded. Surgeries None recorded. Imaging electrocard iogram 2021 022 [email or web address] 0 [facility], [address] [place] [address], [phone] 21:32:45 Medication Orders None recorded. Patient TargetsNo targets recorded. Patient InstructionsNo instructions recorded. Reason for Referral None Reported. Results Created Date Observation Date Name Description Value Unit Range Abnormal Flag Note LastModifiedBy Organization Detail LastModifiedTime 03/18/20 22 03/18/2022 elect doug maldonado am No observ ation record ed. [email or web address] [address], [phone] 03/18/2022 21:32:33 Result Notes None recorded. Medical Equipment None Reported. [...] Address Organization Details Last Updated DateTime 2 476937. 2 g 157.48 cm 97.8 [degF] 97 % 97 % 16 /min 78 /min 166 mm[Hg] 93 mm[Hg] Not Available [facility] - production 18:47:13 Social History None recorded. Functional Status [...] Chelsea Hernandez MD Main - instED [address] [place] [phone] 03/17/2022 16:53:01 05/13/2022 21:10:03 Chest pain [id number] R07.9 Health Concerns Section Related Observation LastModified by Organization Detai ls LastModified Time None Recorded Concern Status LastModified by Organization Details LastModified Time None Recorded Advance Directives Directive None Recorded Payers Insurance Date Sequence Insurance Name Policy Number Policy Wagner Covered Member ID Wagner Member ID Guarantor Name 03/17/2022 1 [facility] - DOS PRIOR TO 2022 - DUAL ELIGIBLE (MEDICARE REPLACEMENT/ADV ANTAGE - HMO) Halley Ramon [id number] Halley Ramon Notes Date Note Type Note [...] ................... ................... ................... ................... ................... ................... ........ Hog Sawyer Note: Sent to a call for a pt complaining of chest pain and sob. SC[employer] arrives on scene, pt arrives home in a van. Pt is alert and oriented. Airway is patent. Bracelet And Brooch Maker line used for communication as pt's primary language is Mongolian. Pt complains of left lateral neck pain [...] dizziness, n/v/d, abd pain, fever/chills or loc. [facility] orders 12 lead ECG. ECG uploaded to Additeched. [facility] advises pt to be transported to ED for further evaluation/treatmen t. Pt agrees. Pt care is transferred to [facility]. Pt transported to [facility]. ................... ................... ................... ................... ................... ................... ................... ........ Disposition: FulfilledSEGMD- as above-Pat seen at [facility] 03/06/22- was having neck pain and headache at the time-denied having CP or telling staff she had CP.- that started more recently. She finished the antibiotics- was also given albuterol, but she did not use it as it was making her nervous/ shakey//has minimal cough- clear phlegm. She reports she sees a forms analysis manager, but does not know her cardiac dx. Has hx obesity/ DM/ HTN/REY / panic d/o per old record. Quit smoking > 35 yrs ago- pat reports no known family hx CAD. Chelsea Hernandez MD [address] [facility],[address], [place], [phone], [employer] - [employer] 03/18/2022 21:32:58 OBGyn Episode No OBEpisode recorded.
--- OUTSIDE RECORDS SUMMARY | 2025-03-01 12:55 | XMS_ITS | Encounter Summary ---
Author Organization [employer] Address [address] [facility] [address] [place] [address] Care Team Providers Care Lofter Name Role Phone Radha Bran MD Primary Care Provider + Encounter Details Date Type Department Care Team ([facility] st Contact Info) Description 08/25/[address] [facility] [address] [place], [place] [phone] Radha Bran MD [address] [place] [address] Social History Tobacco Use Types Packs/Day Years [...] Care Team (Late st Contact Info) Description 03/15/2025 9:00 AM EDT Office Visit [facility] [address] [place] [address] Radha Bran MD [address] [place] [address] 03/28/2025 9:00 AM EDT Office Visit [facility] ADULT DENTAL [address] [place] [address] Marisel Andujar, DDS [address] [place] [address] documented as of this encounter Visit Diagnoses Not on filedocumented in this encounter Additional Health Concerns Assessment Noted Time PHQ-9 Depression Total Score: 13 024 10:37 AM EST documented as of this encounter Care Teams Lofter Relationship Specialty Start Date End Date Radha Bran MD [address] [place] [phone] PCP - General Family Medicine 10/16/20 documented as of this encounter
== END 2025-03-01 12:53 | disposition home or self-care (01) ==
LOC: HO.ENCR 12:19
PROVIDERS: PCP Internal Medicine; Visit Provider Registered Nurse Diabetes Educator
DX: E11.9 Type 2 diabetes mellitus without complications (principal)

== ENCOUNTER → 2025-03-01 12:19 | Outpatient (BNVA) | payer OTHER, SELFPAY | PROVIDERS: PCP Internal Medicine; Visit Provider Registered Nurse Diabetes Educator | DX: E11.649 Type 2 diabetes mellitus with hypoglycemia without coma (principal); Z79.4 Long term (current) use of insulin | CPT/HCPCS: 99211 ==

== ENCOUNTER 2025-04-17 12:52 | Outpatient (AMB) | payer OTHER, SELFPAY ==
--- NOTE | 2025-04-17 12:53 | MHC.OFFVIS ---
Vital Signs 04/17/25 13:01 Height 5 ft 2 in Weight 227 lb 8.273 oz BMI 41.6 BP 116/58 L Blood Pressure Location Rt brachial Position Sitting Pulse 92 Pulse Source Pulse Oximeter Pulse Oximetry (%) 96 Oxygen Delivery Method Room Air Intake Visit Reasons: Type 2 dm Intake Note: Patient present today to follow up on Type 2 Diabetes Mellitus. Last seen by Breanna Walters on 02/16/2025. Patient receives Walter 3 Plus supplies through: [facility] Last Diabetic Eye exam: 07/31/2024 Last Podiatry Visit: Does not see a Regional Sales Executive Random Glucose: mg/dl HgA1C: 9.1% 02/01/2025 Biological Chemist Required: Yes Biological Chemist Language: [employer] Services: Biological Chemist Present Biological Chemist Name: [facility] Kaley Information Interpreted: non-clinical & clinical Accompanied by: Self / Same As Patient Allergies seasonal Allergy (Intermediate, Uncoded 04/17/25 13:01) cough Medication List - Last Reconciled 04/17/25 by Pedro Mohamud MD acetaminophen (Tylenol Extra Strength) 500 mg PO Q6H PRN albuterol sulfate 90 mcg/actuation 2 puffs inhalation Q6H PRN beclomethasone dipropionate 80 mcg/actuation (Qvar RediHaler) 2 inhalations inhalation BID blood sugar diagnostic (OneTouch Verio test strips) As directed test 4 times a day blood-glucose meter (OneTouch Verio Flex Meter) As directed checks 4 times a day blood-glucose,human performance technologist,cont (FreeStyle Walter 3 Ophiem) As directed bolus insulin pump, 200 unit (CeQur Simplicity) As directed every 4 days calcium carbonate-vitamin D3 600 mg-10 mcg (400 unit) 1 tab PO Q12H cholecalciferol (vitamin D3) 125 mcg PO DAILY CPAP (CPAP Machine/Device) As directed escitalopram oxalate 20 mg PO DAILY FreeStyle Walter 3 Plus Sensor (blood-glucose sensor) As directed every 15 days NS gabapentin 100 mg PO BEDTIME insulin glargine (Lantus Solostar U-100 Insulin) 28 units (0.28 mL) subcut DAILY 30 days MDD 28 units insulin lispro (Humalog U-100 Insulin) 10 units tid before meals 30 days MDD 30 irbesartan 75 mg PO DAILY meclizine 25 mg PO DAILY PRN rosuvastatin 40 mg PO DAILY sennosides-docusate sodium 8.6-50 mg (Senna Plus) 1 tab PO BEDTIME tirzepatide (Mounjaro) 7.5 mg (0.5 mL) subcut QWEEK 28 days HPI Comments Details: Patient is 75-year-old female with DM type 2 diagnosed 1993 who presents for management of diabetes. She was last seenby Breanna Chopra NP on 02/16/25 She presents several weeks early from her scheduled visit as she placed a freestyle 3 in his not certain how to get it has started. Previous medication: Synjardy XR 25/1,000 not taking because can't tolerate nausea.Intolerant of regular metformin due to diarrhea Diabetes medications: Lantus 28 units Humalog 10 units Ac tid before meal Mounjaro 7.5 weekly Glucometer download shows she is checking her point of care sporadically. There are 5 point of cares in the glucometer ranging from 98 to 165 Positive Retinopathy: Last diabetic eye exam in 02/2025 ; , she is getting anti-VGEF therapy Has neuropathy left leg secondary to surgery. No pain, Podiatry: Does not see but would like referral as she had has difficulty bending over to trim her nails Has nephropathy followed by Nephrology Dr. Olivares at [facility] microalbumin Hypoglycemia: denies Hyperglycemia: + urinary frequency, + nocturia, denies polydypsia Diet has not been balanced she has a history of sleeve in 2019 Exercise: has not been walking. 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 Meal plan prescribed: [facility] Medical History Type 2 diabetes mellitus Panic attack Anxiety Obesity due to excess calories Asthma REY (obstructive sleep apnea) Morbid obesity Vitamin D deficiency Obesity Dyslipidemia Hypertension Diabetic polyneuropathy associated with type 2 diabetes mellitus Diabetes type 2, uncontrolled Surgical History Abdominal pain History of carpal tunnel release S/P trigger finger release H/O foot surgery History of dilatation and curettage History of sleeve gastrectomy History of esophagogastroduodenoscopy (EGD) History of eyelid surgery Hx of tubal ligation Hx of colonoscopy Family History Father Type II diabetes mellitus Obesity Mother HTN (hypertension) Brother Cancer Social History Household Members: Spouse Housing: Apartment Do you presently have visiting nurse or other home services: Yes Alcohol intake: never Patient Tobacco Use Status: Former Tobacco user Tobacco use type: Cigarette e-Cigarette/Vaping Use: Never Used service: No Current occupational status: unemployed Current occupation: rt handed Physical Exam Vital Signs: Last Vital Signs Pulse 92 04/17/25 13:01 BP 116/58 L 04/17/25 13:01 Pulse Ox 96 04/17/25 13:01 Oxygen Delivery Method Room Air 04/17/25 13:01 BMI result Body Mass Index 41.6 Absence of Cushingoid features. Absence of acromegalic features. Neck exam reveals nl size thyroid about 15 gms. No thyroid nodules palpable. No carotid bruits present. Lungs CTA. Heart S1 S2, Reg R/R. No M/R/ G. Skin exam reveals absence of vitiligo or acanthosis nigricans. Abdominal exam reveals Soft NT/ND with NA BS. No organomegaly present. Neck Other: . Extrem Other: Visual exam of foot performed. No ulcerations or open lesions. No onchomycosis, no callouses.Pulses 2 + distally Sensation intact to monofilament exam. Vibratory sensation sensed is Decreased with 128 Hz tuning fork Results Reviewed Results Reviewed: Laboratory Last Values Glucose (Clinic) 124 mg/dL (60-115) H 04/17/25 13:06 Assessment & Plan Assessment & Plan (1) Diabetes type 2, uncontrolled: Code(s): E11.65 - Type 2 diabetes mellitus with hyperglycemia Category: Medical Qualifiers: Glycemic state: with hyperglycemia Qualified Code(s): E11.65 - Type 2 diabetes mellitus with hyperglycemia Plan: This is 73-year-old female with a history of type 2 diabetes being treated with Mounjaro and basal-bolus insulin with poor deteriorated glycemic control and known microvascular complications namely retinopathy, neuropathy and nephropathy. She claims to be intolerant to metformin or metformin /Jardiance combination The plan is to reinitiate the Walter 3+ sensor. Can not make any changes in the insulin regimen because of lack of data today. Went over with patient again the correlation of poor glycemic control to development of progression of complications. We will have patient follow up with primary care diabetes team in 2 months. I will also have him meet with the cosmetology educator in about 2-3 weeks to review injection techniques. Medications: Refilled FreeStyle Walter 3 Plus Sensor (blood-glucose sensor) As directed every 15 days 2 ea 10RF NS E11.9 - Type 2 diabetes mellitus without complications Coding Level of Care Code Est Pt Level 4 (72704) Diagnoses Uncontrolled type 2 diabetes mellitus with hyperglycemia E11.65 Glycemic state: with hyperglycemia
[2025-04-17 13:01] VITALS: BP 116/58; PULSE 92; O2SAT 96; BMI 41.6
[2025-04-17 13:12] LABS: Glucose, Whole Blood 124 mg/dL (60-115)
--- OUTSIDE RECORDS SUMMARY | 2025-04-17 13:44 | XMS_ITS | Encounter Summary ---
Author Organization [employer] Address [address] [place] [address] [address] [place] [address] Care Team Providers Care Curing Oven Tender Name Role Phone Radha Bran MD Primary Care Provider + Reason for Visit * Reason Onset Date Comments Durable Medical Equipment 10/08/2023 Encounter Details Date Type Department Care Team (Late st Contact Info) Description 10/08/2023 Telephone [facility] [address] [place], [place] [phone] Radha Bran MD [address] [place] [address] Durable Medical Equipment Social History Tobacco Use [...] the past 12 months, has t he [employer] gas, oil or water [employer] threatened to shut off services in your [...] if any questions contact Bunny Sow at [phone]. documented in this encounter Plan of Treatment Upcoming Encounters Date Type Department Care Team (Late st Contact Info) Description 04/25/2025 2:00 PM EDT Office Visit [facility] ADULT DENT[facility] [address] [place] [address] Thomas-Miller, Marisel, DDS [address] [place] [address] 06/19/2025 2:00 PM EDT Office Visit [facility] [address] [place] [address] Radha Bran MD [address] [place] [address] documented as of this encounter Visit Diagnoses Not on filedocumented in this encounter Care Teams Curing Oven Tender Relationship Specialty Start Date End Date Radha Bran MD [address] [place] [phone] PCP - General Family Medicine 10/16/20 documented as of this encounter
--- OUTSIDE RECORDS SUMMARY | 2025-04-17 13:44 | XMS_ITS | Clinical Summary ---
Author Organization [facility] Address [address] [place] [address] [place] [phone] Phone Care Team Providers Care Case Management Director Name Role Phone Paul Farr NP, Jeanne Primary Care Provider Olga jacinto Social History Tobacco Use Types Packs/Day Years Used Date Smoking Tobacco: Never Assessed Education Answer Date Recorded Are you interested in more education? Not on ericka e 12/26/2022 Are you concerned about learning? Not on file 12/26/2022 No 12/26/2022 No 12/26/2022 Digital Access Answer Date Recorded No 01/27/2023 No 01/27/2023 No 01/27/2023 Reliable internet access at home? Not on file 01/27/2023 Device with a working camera? Not on file Comments Unknown Sex and Gender Information Value Date Recorded Sex Assigned at Not on file Legal Sex Female 3:35 PM EST Gender Identity Not on file Sexual Orientation Not on file Last Filed Vital Signs Vital Sign Reading Time Taken Comments Blood Pressure 108/60 11/26/2018 8:22 AM EDT Pulse - - Temperature - - Respiratory Rate - - Oxygen Saturation - - Inhaled Oxygen Concentration - - Weight - - Height - - Body Mass Index - - Plan of Treatment Not on file Medical Devices [place] [id number] [facility]AC[facility] MEDICARE REPLACEMENT [facility] MEDICARE REPLACEMENT [facility] MEDICARE REPLACEMENT [facility] MEDICARE REPLACEMENT [facility] MEDICARE REPLACEMENT [facility] MEDICARE REPLACEMENT [facility] MEDICARE REPLACEMENT [facility] MEDICARE REPLACEMENT Care Teams Case Management Director Relationship Specialty Start Date End Date Lalita Miller NP PCP - General 11/03/18 Additional Source Comments The information contained in this document represents components of the legal health record. It is not the complete legal health record.[facility]
--- OUTSIDE RECORDS SUMMARY | 2025-04-17 13:44 | XMS_ITS ---
Author Name Maribel Vann NP Address [address] [place] [address] Phone [phone] [facility] [facility] Care Team Providers Care Quantitative Associate Name Role Phone Maribel Vann Unavailable [phone] [facility] Unavailable [phone] [place], [facility] Unavailable [phone] [place] [place] Unavailable [phone] Unavailable Unavailable [phone] Unavailable Unavailable [phone] [employer] [employer] Unavailable [phone] Pedro Mohamud Unavailable [phone] Radha Bran Unavailable Reason for Referral Not Available Allergies, adverse reactions, alerts No known allergies History of medication use Medication Class Instructions Start Date End Date Fluocinolone Acetonide Body 0.01 % Oil APPLY BOTTLE TOPICALLY TO THE AFFECTED AREA IN THE MORNING 2022-08-13 No Data Available B-D KURTIS 2ND GEN PEN NDL [id number] USE TO INJECT FOUR TIMES DAILY 2022-08-28 [...] Data Available 2023-06-03 No D aries Available Woodpecker EducationTouch Verio Flex System w/Device Kit USE TO [...] each nostril 2024-04-21 No Data Available FreeStyle Awlter 2 Sensor Miscellaneous 1 q 2 weeks 2024-04-21 No Data Available Fexofenadine 180 mg Tab 1 tablet orally one time a day 2024-04-21 No Data Available Walton Nasal [place] 0.65 % Solution Nasal 2 sprays intranasally [...] incontinence supplies ordered 2 months ago by [facility] cc, but has not received yet. [...] arthritis Active 2023-09-24 N/A previously diagnosed 01/20/23 [facility] painstablewill f/u with Rheum 11/2024 Low [...] of Service Diagnosis/Co mplaint No Data Available [facility]2023 Morbid (severe) obesity due to excess caloriesBody mass index (BMI) 40.0-44.9, adultType 2 diabetes w unsp diabetic retinopathy w macular edemaMajor depressive disorder, recurrent, mildIron deficiency anemia, unspecifiedUnspecified urinary incontinenceUnspecified asthma, uncomplicatedObstructive sleep apnea (adult) (pediatric)2-part nondisp fx of surg nk of melecio luna, 7thDEssential (primary) hypertensionHistory of fallingDifficulty in walking, not elsewhere classified No Data Available [facility]2023 No Data Available [facility]2023 No Data Available [facility]2023 No Data Available [facility]2023 No Data Available [facility]2023 No Data Available [facility] 04/[place]2023 Estab. patient 20-29min; 1 stable chronic or 2 minor; add add modifier 95 for video, modifier 93 for phone [facility] 05/06/2023 Type 2 diabetes w unsp diabe [...] 95 for video, modifier 93 for phone [facility] 05/06/2023 Estab. patient 20-29min; 1 stable chronic or 2 minor; add add modifier 95 for video, modifier 93 for phone [facility] 05/06/2023 Estab. patient 20-29min; 1 stable chronic or 2 minor; add add modifier 95 for video, modifier 93 for phone [facility] 05/06/2023 No Data Available [facility] 06/[place]/2023 History of fallingDifficulty in walking, not elsewhere classified No Data Available [facility] 06[place]2023 No Data Available [facility] 06[place]2023 History of fallingDifficulty in walking, not elsewhere classifiedPersonal history of (healed) traumatic fracture No Data Available [facility] 06[place]2023 No Data Available [facility]2023 No Data Available [facility]2023 No Data Available [facility] 07[place]2023 Difficulty in walking, not elsewhere classifiedHistory of fallingPersonal history of (healed) traumatic fracture No Data Available [facility]2023 Estab. patient 30-39min; chronic exacerbation, 2 stable chronic or 1 acute illness add add modifier 95 for video, (do not use for phone, instead use 45123-42) [facility]2023 Morbid (severe) obesity due [...] (do not use for phone, instead use 98942-21) [facility]20[place] Estab. patient 30-39min; chronic exacerbation, 2 stable chronic or 1 acute illness add add modifier 95 for video, (do not use for phone, instead use 05073-42) [facility]2023 Estab. patient 30-39min; chronic exacerbation, 2 stable chronic or 1 acute illness add add modifier 95 for video, (do not use for phone, instead use 11481-62) [facility]2023 Estab. patient 30-39min; chronic exacerbation, 2 stable chronic or 1 acute illness add add modifier 95 for video, (do not use for phone, instead use 90996-69) [facility]2023 No Data Available [facility] 08/14/2023 Morbid (severe) obesity due to excess caloriesBariatric surgery statusUnspecified asthma, uncomplicatedHistory of fallingDifficulty in walking, not elsewhere classifiedPersonal history of (healed) traumatic fracture No Data Available [facility] 08/14/2023 No Data Available [facility] 09/09/2023 Urinary tract infection, sit e not specified No Data Available [facility] 09/10/2023 Urinary tract infection, sit e not specifiedHistory of fallingDifficulty in walking, not elsewhere classifiedPersonal history of (healed) traumatic fracture No Data Available [facility] 09[place]10/2023 Estab. patient 30-39min; chronic exacerbation, 2 stable chronic or 1 acute illness add add modifier 95 for video, (do not use for phone, instead use 19561-49) [facility]/18[place]2023 Urinary tract infection, sit e not [...] (do not use for phone, instead use 87872-71) [facility]18[place]2023 Estab. patient 30-39min; chronic exacerbation, 2 stable chronic or 1 acute illness add add modifier 95 for video, (do not use for phone, instead use 81560-13) [facility]18[place]2023 Estab. patient 30-39min; chronic exacerbation, 2 stable chronic or 1 acute illness add add modifier 95 for video, (do not use for phone, instead use 54706-88) [facility] 09[place]18[place]2023 Estab. patient 30-39min; chronic exacerbation, 2 stable chronic or 1 acute illness add add modifier 95 for video, (do not use for phone, instead use 64045-07) [facility] 09[place]18[place]2023 Estab. patient 30-39min; chronic exacerbation, 2 stable chronic or 1 acute illness add add modifier 95 for video, (do not use for phone, instead use 80716-44) [facility] 09[place]18[place]2023 Estab. patient 30-39min; chronic exacerbation, 2 stable chronic or 1 acute illness add add modifier 95 for video, (do not use for phone, instead use 15591-91) [facility] 09/18[place]2023 Estab. patient 30-39min; chronic exacerbation, 2 stable chronic or 1 acute illness add add modifier 95 for video, (do not use for phone, instead use 23170-77) [facility]20[place] Estab. patient 30-39min; chronic exacerbation, 2 stable chronic or 1 acute illness add add modifier 95 for video, (do not use for phone, instead use 80828-81) [facility]18[place]2023 No Data Available [facility]2024 Morbid (severe) obesity due to excess caloriesBariatric surgery statusType 2 diabetes w unsp diabetic retinopathy w macular edemaUnspecified urinary incontinenceUnspecified asthma, uncomplicatedObstructive sleep apnea (adult) (pediatric)Essential (primary) hypertensionBody mass index (BMI) 40.0-44.9, adultMajor depressive disorder, recurrent, mildOther problems related to medical facilities and other health careHeadache, unspecifiedOther chronic pain No Data Available [facility]20[place] No Data Available [facility] No Data Available [facility]20[place] No Data Available [facility] No Data Available [facility]20[place] No Data Available [facility]20[place] No Data Available [facility]03/2024 Type 2 diabetes w unsp diabe tic retinopathy w macular edemaAllergic contact dermatitis due to plants, except foodEncounter for other specified aftercareOther problems related to medical facilities and other health careLong term (current) use of insulin No Data Available [facility] 05/03/2024 No Data Available [facility]2024 Flu due to unidentified influenza virus w oth resp manifestPersons encountering health services in other specified circumstancesOther problems related to medical facilities and other health care No Data Available [facility]2024 No Data Available [facility]20[place] Estab. patient 10-29min; 1 minor [...] tive Time Current Smoking Status Former smoker 2025-03-31 10 Sex Female History of Procedures Procedures Service Procedure code Service date Servicing provider Phone# No Data Available [id number] 2023-04-09 No Data Available No Data Available [...] 95 for video, modifier 93 for phone [id number] 2023-05-06 No Data Available No Data Availa [...] No Data Carli ilable No Data Available [id number] 2023-06-15 No Data Available No Data Available Medication List Documented (1159F) 1159F 2023-06-15 No Data Available No Data Carli ilable No Data Available [id number] 2023-06-16 No Data Available No Data Available Medication List Documented (1159F) 1159F 2023-06-16 No Data Available No Data Carli ilable Pain Assessment - Pain Documented on a Pain Scale (1125F) 1125F 2023-06-16 No Data Available No Data Carli ilable BMI obtained (3008F) 3008F 2023-06-16 No Data Availab le No Data Available No Data Available [id number] 2023-07-08 No Data Available No Data Available Medication List Documented (1159F) 1159F 2023-07-08 No Data Available No Data Carli ilable Estab. patient 30-39min; chronic exacerbation, 2 stable chronic or 1 acute illness add add modifier 95 for video, (do not use for phone, instead use 05140-78) [id number] 2023-07-15 No Data Available No Data Availa [...] No Data Carli ilable No Data Available [id number] 2023-08-14 No Data Available No Data Available Medication List Documented (1159F) 1159F 2023-08-14 No Data Available No Data Carli ilable No Data Available [id number] 2023-09-09 No Data Available No Data Available No Data Available [id number] 2023-09-10 No Data Available No Data Available Medication List Documented (1159F) 1159F 2023-09-10 No Data Available No Data Carli ilable Estab. patient 30-39min; chronic exacerbation, 2 stable chronic or 1 acute illness add add modifier 95 for video, (do not use for phone, instead use 63821-73) [id number] 2023-09-18 No Data Available No Data Availa [...] No Data Avail able No Data Available [id number] 2024-04-21 No Data Available No Data Available [...] le No Data Available No Data Available [id number] 2024-05-03 No Data Available No Data Available Medication List Documented (1159F) 1159F 2024-05-03 No Data Available No Data Carli ilable No Data Available [id number] 2024-08-26 No Data Available No Data Available [...] 95 for video, modifier 93 for phone [id number] 2024-09-22 No Data Available No Data Availa [...] 95 for video, modifier 93 for phone [id number] 2024-10-21 No Data Available No Data Availa ble Medication List Documented (1159F) 1159F 2024-10-21 No Data Available No Data Carli ilable Estab. patient 10-29min; 1 minor problem; add add modifier 95 for video, modifier 93 for phone [id number] 2024-11-24 No Data Available No Data Availa [...] Patient Education to avoid future hospitalization: Call [facility] if symptoms of illness develop.History of recent [...] Documented (1125F)Continue to see PCP. Follow-up with [facility] as needed for any acute or [...] units TID AC meals and FU with production control expediter in February,Wears rafaela paduses inhaler Flovent BIDHas CPAP using nightlyContinue lovenox as directedAdvancing home PTencouraged UE activity as toleratedHas not been taking BP medication since surgery 2 months ago on broken footApril 2022 had a bad fall on steps at entrance to home. Fractured L foot, L?knee, L shoulderStill unable to walkUsing wheelchairDeatrium health [facility] productsEscitalopramWimoreno think about whether she wants a [...] units TID AC meals and FU with production control expediter in February,Wears rafaela padNeeds chux pads, XL pull-ups, gloves XLuses inhaler Flovent BIDHas CPAP using nightlyContinue lovenox as directedAdvancing home PTencouraged UE activity as toleratedHas not been taking BP medication since surgery 2 months ago on broken footApril 2022 had a bad fall on steps at entrance to home. Fractured L foot, L?knee, L shoulderStill unable to walkUsing wheelchairNow [facility] suzyEscitalopramRex think about whether she wants a therapist 2023-06-15 13:39:58 Phone (patient, pare nt, or guardian); 5-10 minutes of medical discussion (no modifier 95)Continue to see PCP. Follow-up with [facility] as needed for any acute or disease education needs that may arise 23/03.November 2022 had a bad fall on steps at entrance to home. Fractured L foot, L?knee, L shoulderStill unable to walkUsing lwjnkpbscu62/16/2023er son, can only walk very short distances [...] unable to walkUsing wheelchairNow [facility]er son, can only walk very [...] and we need videocall. Tablet needs a principal embedded software engineer, will send and schedule videocall for [...] unable to walkUsing wheelchairNow having [facility] at [facility]3Per son, can only walk very [...] unable to walkUsing wheelchairNow having [facility]06/15/2023er son, can only walk very [...] and we need videocall. Tablet needs a principal embedded software engineer, will send and schedule videocall for [...] painWill start nitrofurantoin.Increase water and rest.Tylenol.F/U with MHAENDRA 09/10/23. 2023-09-10 10:02:40 Phone (patient, pare nt, or guardian); 5-10 minutes of medical discussion (no modifier 95)Continue to see PCP. Follow-up with [facility] as needed for any acute or disease education needs that may arise 23/03.09/09/23: Malodorous dark urine, Left flank painWill start nitrofurantoin.Increase water and rest.Tylenol.F/U with MAHENDRA 09/10/23.UPDATE 09/10/2023t has not yet gone to picker tender prescription. Feels about the same. Education about [...] 09/10/2023t has not yet gone to picker tender prescription. Feels about the same. Education about [...] unable to walkUsing wheelchairNow having PT at [facility]3Per son, can only walk very [...] and we need videocall. Tablet needs a principal embedded software engineer, will send and schedule videocall for [...] units TID AC meals and FU with production control expediter Reports stableWears rafaela padNeeds chux pads, XL pull-ups, gloves XLuses inhaler Flovent BIDHas CPAP using nightlyContinue lovenox as directedAdvancing home PTencouraged UE activity as toleratedHas not been taking BP medication aftersurgery on broken footUPDATE 4Reports compliance nowApril 2022 had a bad fall on steps at entrance to home. Fractured L lower leg, L shoulderStill unable to walkUsing wheelchairNow having PT at [facility]3Per son, can only walk very [...] and we need videocall. Tablet needs a principal embedded software engineer, will send and schedule videocall for [...] painWill start nitrofurantoin.Increase water and rest.Tylenol.F/U with MAHNEDRA 09/10/23.UPDATE 09/10/2023t has not yet gone to picker tender prescription. Feels about the same. Education about [...] individual diagnosis for contingency plan.previously diagnosed 01/20/23 [facility] painstable 2024-04-21 09:19:41 Phone (patient, pare nt, or guardian); 5-10 minutes of medical discussion (no modifier 95)Continue to see PCP. [facility] [...] units TID AC meals and FU with production control expediter Reports stableWears rafaela padNeeds chux pads, XL [...] modifier 95)Continue to see PCP. Follow-up with [facility] as needed for any acute or [...] Button for urgent needs and provided with [email or web address] phone # as an alternative method to [...] units TID AC meals and FU with production control expediter Reports stable09/22/24feels well, denies hypo/hyperglycemic episodescontinues to [...] incontinence supplies ordered 2 months ago by [facility] cc, but has not received yet. [...] Flovent BIDuses nebulizer 11/24/24denies SOBpreviously diagnosed 01/20/23 [facility] Ctrmanage painstablewill f/u with Rheum 11/2024Vitamin [...]
== END 2025-04-17 13:20 | disposition home or self-care (01) ==
LOC: HO.ENCR 12:52
PROVIDERS: PCP Internal Medicine; Visit Provider Internal Medicine Endocrinology, Diabetes & Metabolism
DX: E11.65 Type 2 diabetes mellitus with hyperglycemia (principal)
CPT/HCPCS: 99214

== ENCOUNTER → 2025-04-17 12:52 | Outpatient (BNVA) | payer OTHER, SELFPAY | PROVIDERS: PCP Internal Medicine; Visit Provider Internal Medicine Endocrinology, Diabetes & Metabolism | DX: E11.65 Type 2 diabetes mellitus with hyperglycemia (principal) | CPT/HCPCS: 82947; 99212 ==

== ENCOUNTER 2025-04-25 13:33 | Emergency (ER) | payer OTHER, SELFPAY ==
--- NOTE | ~2025-04-25 | XR_ITS ---
EXAMINATION: XR CHEST CLINICAL INFORMATION: Chest pain COMPARISON: August 24, 2024 TECHNIQUE: Frontal view of the chest was obtained. FINDINGS: Poor inspiration. No consolidation, pleural fissure pneumothorax. Cardiomediastinal silhouette size is normal. Calcified plaque thoracic aorta. Multilevel thoracic spondylosis. Patient's large body habitus/obesity. Sutures in the left upper quadrant abdomen likely gastric sleeve, on prior CT chest dated December 04, 2022.. XR/XR chest 1V IMPRESSION: No acute airspace disease. Multilevel thoracic spondylosis. Obesity. Electronically signed by: Stone Villagran MD 04/25/2025 02:21 PM EDT
--- NOTE | ~2025-04-25 | CT_ITS ---
CLINICAL HISTORY: Pleuritic Chest Pain; Positive D-Dimer CT angiography chest with contrast. 3D Postprocessing. Comparison: Chest x-ray on 04/25/2025, chest CT 12/04/2022 Findings: Patchy bilateral mid to lower lung predominant ground-glass densities. No dense focal airspace consolidation. No pleural effusion. No pneumothorax. Central airways are patent. Normal heart size. No pericardial effusion. Mild multivessel coronary artery calcifications. Scattered hilar and mediastinal lymph nodes with some appearing mildly enlarged. Unremarkable esophagus. Small hiatal hernia. Calcified but nonaneurysmal thoracic aorta. Normal caliber central pulmonary arteries. No findings to suggest acute pulmonary embolism. No acute findings within visualized lower neck. Stable appearance of simple appearing splenic cyst. No acute osseous abnormality. No lytic or sclerotic osseous lesions. Impression: 1. No evidence of acute pulmonary embolism. 2. Bilateral mid to lower lung predominant ground-glass parenchymal densities differential diagnostic considerations include edema versus pneumonitis. 3. Additional chronic/nonacute findings as above. This document has been electronically signed by: Judith Perez MD on 04/25/2025 23:25:12
--- NOTE | 2025-04-25 13:36 | ECG_ITS ---
Test Reason : CP Blood Pressure : */* mmHG Vent. Rate : 75 BPM Atrial Rate : 75 BPM P-R Int : 166 ms QRS Dur : 70 ms QT Int : 376 ms P-R-T Axes : 48 11 32 degrees QTcB Int : 419 ms Sinus rhythm with Premature atrial complexes Otherwise normal ECG When compared with ECG of 04-Dec-2022 18:54, No significant change was found Referred By: Patric Beckham Electronically Signed By: ALEXUS UMANZOR
[2025-04-25 13:41] VITALS: BP 135/66; PULSE 74; RESP 20; TEMP 37.1; O2SAT 96; BMI 41.0
--- NOTE | 2025-04-25 14:10 | ED_ITS ---
HPI - Chest Pain General Chief Complaint: Chest Pain Stated Complaint: Chest pain, SOB Time Seen by Provider: 04/25/25 20:23 Source: patient and family Mode of arrival: ambulatory Limitations: language barrier (Chief Business Development Officer services utilized) History of Present Illness ED Provider: Wie NEWMAN HPI narrative: The patient is a 75-year-old female with a history of diabetes, gallstones, asthma, GERD, REY, morbid obesity, gastric sleeve, and hypertension, presenting to the ED reporting for the past 2 weeks she has been experiencing waxing and waning right-sided and substernal chest pain which is worse with deep respiration. Patient reports a history of asthma but denies associated shortness of breath, fever/chills, cough, nausea, vomiting, abdominal pain, urinary symptoms, or any recent sick contacts or trauma. The patient denies recent travel, lower extremity swelling or pain, or history of coagulopathy. Related Data Home Medications ?Medication ?Instructions ?Recorded ?Confirmed calcium 600 mg (as 1 tab PO Q12H 12/04/2204/17 carbonate)-vitamin D3 10 mcg (400 unit) tablet escitalopram oxalate 20 mg tablet 20 mg PO DAILY 12/0404/17/25 meclizine 25 mg tablet 25 mg PO DAILY PRN dizziness 12/04/22 04/17/25 irbesartan 75 mg tablet 75 mg PO DAILY 01/22/2403/31 CPAP (CPAP Machine/Device) 06/02/24 04/17/25 beclomethasone dipropionate 80 2 inh inhalation BID 04/17/25 mcg/actuation HFA breath activated aerosol (Qvar RediHaler) gabapentin 100 mg capsule 100 mg PO BEDTIME 11/11/24 0 04/17/25 Previous Rx's ?Medication ?Instructions ?Recorded acetaminophen 500 mg tablet 500 mg PO Q6H PRN fever or pain 04/12/23 (Tylenol Extra Strength) #30 tabs blood sugar diagnostic (OneTouch #100 ea 06/10/23 Verio test strips) blood-glucose meter (OneTouch #1 ea 06/10/23 Verio Flex Meter) cholecalciferol (vitamin D3) 125 125 mcg PO DAILY #90 caps 06/09/24 mcg (5,000 unit) capsule albuterol sulfate 90 mcg/actuation 2 puff inhalation Q 6H PRN 08/24/24 aerosol inhaler shortness of breath or wheez ing #8.5 grams sennosides 8.6 mg-docusate sodium 1 tab PO BEDTIME #30 tabs 11/03/24 50 mg tablet (Senna Plus) blood-glucose,route salesman,cont #1 ea 11/30/24 (FreeStyle Walter 3 [place]) rosuvastatin 40 mg tablet 40 mg PO DAILY #90 tabs 11/29 09/24 insulin glargine 100 unit/mL (3 28 unit (0.28 mL) subc ut DAILY 30 02/01/25 mL) subcutaneous pen (Lantus days #9 mL Solostar U-100 Insulin) insulin lispro 100 unit/mL See Rx Instructions subcut TID 30 02/01/25 subcutaneous solution (Humalog days #20 mL U-100 Insulin) tirzepatide 7.5 mg/0.5 mL 7.5 mg (0.5 mL) subcut QWEEK 28 02/01/25 subcutaneous pen injector days #2 mL (Mounjaro) bolus insulin pump, 200 unit 2 #8 ea 03/01/25 unit bolus insulin patch pump, 200 unit, disposable (CeQur Simplicity) FreeStyle Walter 3 Plus Sensor #2 ea 04/17/25 (blood-glucose sensor) Allergies Allergy/AdvReac Type Severity Reaction Status Date / Time seasonal Allergy Intermediate cough Uncoded 04/25/25 13:43 Review of Systems 2 Review of Systems: Yes all other systems are reviewed and are negative [facility] Past Medical History Medical History Type 2 diabetes mellitus Panic attack Anxiety Obesity due to excess calories Asthma REY (obstructive sleep apnea) Morbid obesity Vitamin D deficiency Obesity Dyslipidemia Hypertension Diabetic polyneuropathy associated with type 2 diabetes mellitus Diabetes type 2, uncontrolled Surgical History Abdominal pain History of carpal tunnel release S/P trigger finger release H/O foot surgery History of dilatation and curettage History of sleeve gastrectomy History of esophagogastroduodenoscopy (EGD) History of eyelid surgery Hx of tubal ligation Hx of colonoscopy Family History Family History Father Type II diabetes mellitus Obesity Mother HTN (hypertension) Brother Cancer Social History Social History Household Members: Spouse Housing: Apartment Do you presently have visiting nurse or other home services: Yes Alcohol intake: never Patient Tobacco Use Status: Former Tobacco user Tobacco use type: Cigarette e-Cigarette/Vaping Use: Never Used Advance Directives: No Advance Directives Information Provided: No service: No Current occupational status: unemployed Current occupation: rt handed Physical Exam 2 Vital Signs: Vital Signs: Last Vital Signs Temp 98.8 F 04/26/25 00:32 Pulse 78 04/26/25 00:32 Resp 18 04/26/25 00:32 BP 168/55 H 04/26/25 00:32 Pulse Ox 95 04/26/25 00:32 O2 Del Method Room Air 04/26/25 00:32 BMI result Body Mass Index 41.0 CONSTITUTIONAL: The patient appears non-toxic, well nourished and in no acute distress. Vital signs as documented. HEAD: Atraumatic, normocephalic. EYES: EOMs grossly intact, pupils equal, conjunctiva clear, no exudate. ENT: Nares patent, no discharge. Airway patent, no audible stridor, visible mucosa is pink and moist without noted lesions. NECK: Trachea is midline, no obvious masses or gross abnormalities. CHEST: Symmetric movement, normal appearance. Sternum and right ribs are nontender, without crepitus, and do not reproduce the patient's pain. LUNGS: LS present and CTAB, no w/r/r. Non-labored work of breathing. CARDIAC: Regular Rhythm, S1/S2 appreciated, no murmurs, rubs or gallops. ABDOMEN: Abdomen soft and non-tender x4 quadrants, specifically no right upper quadrant tenderness, negative Smith's. no palpable masses or organomegaly. : Deferred. EXTREMITIES: Normal tone, moves all extremities spontaneously without reported pain. No obvious acute injury or deformity noted. NEURO: Alert and oriented x3, CN II-XII appear grossly intact. Cerebellar Functioning grossly intact. No obvious sensory or motor deficits. Speech clear and appropriate. PSYCH: normal affect, appropriate eye contact, fluid speech, with appropriate response to questioning. No reported suicidality or homicidality. SKIN: Warm, dry, color appropriate, normal turgor. No rashes noted. Course Course Course Narrative: RME: 75 old female presents to ED for chest pain/shortness of breath for the past 2 weeks radiating to the right side. Patient states slight pleurisy. Patient is not gasping for air. Patient is not tripoding. Patient is not altered. Vital signs are stable. Labs EKG chest x-ray ordered Medications Administered Discontinued Medications Generic Name Dose Route Start Last Admin Trade Name Freq PRN Reason Stop Dose Admin Al Hydroxide/Mg Hydroxide 30 ml 04/25/25 23:38 04/26/25 00:20 Magnesium Hydrox/Alum Hydrox 30 Ml Oral.Susp PO 04/25/25 23:39 30 ml ONCE ONE Administration Albuterol Sulfate 2.5 mg/ 5 mg 04/25/25 16:37 04/25/25 16:40 Albuterol Sulfate 2.5 mg INHALE 04/25/25 16:38 5 mg ONCE ONE Administration Famotidine 20 mg 04/25/25 23:38 04/26/25 00:19 Famotidine 20 Mg Tablet PO 04/25/25 23:39 20 mg ONCE ONE Administration Ibuprofen 600 mg 04/25/25 23:38 04/26/25 00:19 Ibuprofen 600 Mg Tablet PO 04/25/25 23:39 600 mg ONCE ONE Administration Iohexol 75 ml 04/25/25 22:05 04/25/25 22:06 Iohexol 350 Mg/Ml 100 Ml Infus..Btl IV 04/25/25 22:06 75 ml ONCE ONE Administration Lidocaine HCl 15 ml 04/25/25 23:38 04/26/25 00:19 Lidocaine Hcl Viscous 2 % 15 Ml Solution PO 04/25/25 23:39 15 ml ONCE ONE Administration Medical Decision Making Medical Decision Making MDM Narrative: 8:42 PM 04/25/2025 (Armando NEWMAN): The patient is a 75-year-old female presenting to the ED for evaluation of 2 weeks of waxing and waning right sided and substernal chest pain which increased today prompting ED evaluation. The patient reports pain is pleuritic in nature, however denies recent travel or lower extremity complaint. The patient's pain is not reproducible on exam with direct palpation of the ribs or sternum. The patient's abdominal exam is benign, no epigastric or right upper quadrant tenderness, unable to reproduce the patient's symptoms. The patient's laboratory evaluation is markedly reassuring, no leukocytosis, anemia, electrolyte abnormality, or BENEDICT. The patient's LFTs are unremarkable. Viral swab is negative. EKG is nonischemic, troponin is negative x2. Chest x-ray shows no focal consolidation or other acute cardiopulmonary process. The patient will be evaluated with D-dimer as she is unable to be ruled out for PE by PERC criteria due to age. Pending D- dimer we will obtain CTA to evaluate for PE versus treat with anti- inflammatories and GI cocktail with instructions to follow up outpatient with PCP. 8:52 PM 04/25/2025 (Armando NEWMAN): Patient's D-dimer has resulted at 1080, we will obtain CTA to rule out PE. 11:36 PM 04/25/2025 (Armando NEWMAN): Patient's CT is negative for PE, there are some mid to lower lung predominant ground-glass opacities consistent with possible pneumonitis versus edema. Patient has no clinical signs and symptoms of CHF, no hypoxia. Patient will be treated with ibuprofen, GI cocktail, and discharged to follow up with PCP. Admission/Observation Consideration of admission/observation: Escalation of care including admission/observation considered Lab Data MDM Lab Attestation statement: I reviewed the patient's lab results. 04/25/25 14:09 04/25/25 14:09 Labs: Lab Results 04/25/25 04/25/25 Range/Units 14:09 15:47 WBC 8.2 (4.8-10.8) X10*3/uL RBC 4.75 (4.20-5.50) X10*6/uL Hgb 13.5 (12.0-16.0) g/dl Hct 40.4 (37.0-47.0) % MCV 85.1 (80.0-98.0) fL MCH 28.4 (27.0-33.0) pg MCHC 33.4 (31.0-35.0) g/dl RDW 13.5 (11.0-16.0) % Plt Count 205 (160-400) X10*3/uL MPV 11.7 (9.4-12.3) fL Immature Gran % (Auto) 0.2 (0.0-0.4) % Neut % (Auto) 65.0 (45-73) % Lymph % (Auto) 26.8 (20-40) % [place] % (Auto) 6.4 (2-11) % Eos % (Auto) 1.2 (0-4) % Baso % (Auto) 0.4 (0-2) % Lymph # (Auto) 2.2 (1.2-4.9) X10*3/uL [place] # (Auto) 0.5 (0.1-1.2) X10*3/uL Eos # (Auto) 0.1 (0.0-0.4) X10*3/uL Baso # (Auto) 0.0 (0.0-0.2) X10*3/uL Abs Immat Gran (auto) 0.02 (0.00-0.03) X10*3/uL Absolute Neuts (auto) 5.4 (2.0-8.3) x10*3/uL Absolute Nucleated RBC 0.000 (0.0-0.012) X10*3/uL Nucleated RBC % (auto) 0.0 (0.0-0.2) /100WBC PT 12.1 (10.9-12.4) SEC INR 1.1 (0.9-1.1) APTT 20.5 L (26.7-34.1) SEC D-Dimer High Sensitivty 1080 NG/ML Sodium 140 (135-145) mmol/L Potassium 4.0 (3.3-5.1) mmol/L Chloride 108 (96-108) mmol/L Carbon Dioxide 25 (22-29) mmol/L Anion Gap 11 L (12-20) BUN 16 (9-16) mg/dL Creatinine 0.63 (0.5-1.4) mg/dL Estim Creat Clear Calc 88.7 Estimated GFR > 60 Random Glucose 99 (60-115) mg/dL Calcium 9.2 (8.4-10.2) mg/dL Total Bilirubin 0.4 (0.0-1.0) mg/dL AST 26 (5-31) U/L ALT 22 (0-31) U/L Alkaline Phosphatase 61 (39-117) U/L Troponin I High Sens < 2.7 < 2.7 (<3.5-17.0) ng/L B-Natriuretic Peptide 27 (<100) pg/mL Total Protein 7.1 (6.5-8.0) g/dL Albumin 3.9 (3.5-5.0) g/dL Influenza Type A (PCR) NEGATIVE (Negative) Influenza Type B (PCR) NEGATIVE (Negative) RSV RNA Qual (PCR) NEGATIVE (Negative) SARS-CoV-2 RNA (RT-PCR) NEGATIVE (Negative) Independent Interpretation I performed an independent interpretation of an: EKG (EKG shows sinus rhythm with a rate of 75, no evidence of acute ischemia, no ST elevation, there is a single PAC noted, no other ectopy. QTC 419. Compared to previous on 12/04/2022 there are no acute morphology changes. ) Radiology Impression Discussion of test interpretation with radiology: I have reviewed the radiologist's reading. Radiologist Impression: XR CHEST CLINICAL INFORMATION: Chest pain COMPARISON: August 24, 2024 TECHNIQUE: Frontal view of the chest was obtained. FINDINGS: Poor inspiration. No consolidation, pleural fissure pneumothorax. Cardiomediastinal silhouette size is normal. Calcified plaque thoracic aorta. Multilevel thoracic spondylosis. Patient's large body habitus/obesity. Sutures in the left upper quadrant abdomen likely gastric sleeve, on prior CT chest dated December 04, 2022.. XR/XR chest 1V IMPRESSION: No acute airspace disease. Multilevel thoracic spondylosis. Obesity. Electronically signed by: Stone Villagran MD 04/25/2025 02:21 PM EDT CLINICAL HISTORY: Pleuritic Chest Pain; Positive D-Dimer CT angiography chest with contrast. 3D Postprocessing. Comparison: Chest x-ray on 04/25/2025, chest CT 12/04/2022 Findings: Patchy bilateral mid to lower lung predominant ground-glass densities. No dense focal airspace consolidation. No pleural effusion. No pneumothorax. Central airways are patent. Normal heart size. No pericardial effusion. Mild multivessel coronary artery calcifications. Scattered hilar and mediastinal lymph nodes with some appearing mildly enlarged. Unremarkable esophagus. Small hiatal hernia. Calcified but nonaneurysmal thoracic aorta. Normal caliber central pulmonary arteries. No findings to suggest acute pulmonary embolism. No acute findings within visualized lower neck. Stable appearance of simple appearing splenic cyst. No acute osseous abnormality. No lytic or sclerotic osseous lesions. Impression: 1. No evidence of acute pulmonary embolism. 2. Bilateral mid to lower lung predominant ground-glass parenchymal densities differential diagnostic considerations include edema versus pneumonitis. 3. Additional chronic/nonacute findings as above. This document has been electronically signed by: Judith Perez MD on 04/25/2025 23:25:12 Independent Historian Clinical information obtained from an independent historian. History obtained from or confirmed by: Spouse External Record Review External record reviewed: Outpatient record Prescription Management I considered prescription management with: Pain Medication Discharge Plan Discharge Clinical Impression: Atypical chest pain Patient Disposition: Home, Self-Care Instructions: Noncardiac Chest Pain (ED) Additional Instructions: Esperanza por elegir el Departamento de Urgencias del [facility] [place] para arce atenci?n m?dica hoy. Afortunadamente, arce evaluaci?n de laboratorio, electrocardiograma, tomograf?a computarizada, radiograf?a de t?rax y examen de hoy no muestran evidencia de ninguna causa card?elliot aguda, infecciosa, metab?lica o coagulop?vinh (co?gulo sangu?zenaida) que haya provocado arce dolor tor?cico en las ?ltimas 2 semanas. En kristin momento, no hay indicaci?n de ingreso hospitalario ni de observaci?n continua en el Departamento de Urgencias, y es seguro darle de juliann. Mant?ngase deon hidratado y descanse lo suficiente. Consulte con arce m?dico de cabecera para marialuisa reevaluaci?n, tratamiento adicional de faudmo s?ntomas, investigaci?n adicional del origen de fadumo s?ntomas y atenci?n preventiva continua. Si no tiene un m?dico de cabecera, llame a [facility] al [phone] para asignarle un nuevo m?dico de cabecera. Mientras espera la asignaci?n de arce nuevo m?dico de cabecera, puede llamar a nuestra Cl?felecia de Atenci?n Sin Lidia Previa al [phone] para necesidades que no marco de emergencia. Regrese al departamento de emergencias si desarrolla un cambio stefano o repentino en fadumo s?ntomas, fiebre de m?s de 100.4 que no mejora con Tylenol o ibuprofeno, v?mitos recurrentes o cualquier otro s?ntoma o inquietud nuevo o que empeore. Thank you for choosing [facility]'s Emergency Department for your care today. Thankfully your laboratory evaluation, EKG, CT, chest x-ray, and exam today show no evidence of any acute cardiac, infectious, metabolic, or coagulopathic (blood clot), cause for your chest pain over the past 2 weeks. At this time there is no indication for admission to the hospital or continued ED observation, and it is safe to discharge you home. Please stay well hydrated and get plenty of rest. Please follow up with your primary care physician for re-evaluation, additional management of your symptoms, additional investigation of the source of your symptoms, and continued preventative care. If you do not have a primary care physician, please call the [facility] at [phone] to establish a new primary care physician. While waiting to establish your new primary care physician, you can call our [facility] at [phone] for non-emergency needs. Please return to the emergency department if you develop a severe or sudden change in your symptoms, a fever over 100.4 that does not improve with Tylenol or Ibuprofen, recurrent vomiting, or any other new or worsening symptoms or concerns. Prescriptions: No Action (DME) blood-glucose meter [OneTouch Verio Flex meter] Misc See Rx Instructions .Route Qty: 1 0RF Rx Instructions: As directed checks 4 times a day (DME) OneTouch Verio test strips Strip See Rx Instructions .Route Qty: 100 4RF Rx Instructions: As directed test 4 times a day cholecalciferol (vitamin D3) 125 mcg (5,000 unit) capsule 125 mcg PO DAILY Qty: 90 3RF (DME) FreeStyle Walter 3 [place] Misc See Rx Instructions .Route Qty: 1 0RF Rx Instructions: As directed rosuvastatin 40 mg tablet 40 mg PO DAILY Qty: 90 3RF (DME) CeQur Simplicity 2 unit device MISCELLANEOUS DIRECTED Qty: 8 6RF Rx Instructions: As directed every 4 days albuterol sulfate 90 mcg/actuation HFA aerosol inhaler 2 puff inhalation Q6H PRN (Reason: shortness of breath or wheezing) Qty: 8.5 0RF meclizine 25 mg tablet 25 mg PO DAILY PRN (Reason: dizziness) escitalopram oxalate 20 mg tablet 20 mg PO DAILY calcium carbonate-vitamin D3 600 mg-10 mcg (400 unit) tablet 1 tab PO Q12H acetaminophen [Tylenol Extra Strength] 500 mg tablet 500 mg PO Q6H PRN (Reason: fever or pain) Qty: 30 0RF gabapentin 100 mg capsule 100 mg PO BEDTIME irbesartan 75 mg tablet 75 mg PO DAILY (DME) CPAP Machine/Device Device See Rx Instructions .Route Rx Instructions: As directed Qvar RediHaler 80 mcg/actuation HFA aerosol breath activated 2 inh inhalation BID sennosides-docusate sodium [Senna Plus] 8.6-50 mg tablet 1 tab PO BEDTIME Qty: 30 0RF Mounjaro 7.5 mg/0.5 mL pen injector 7.5 mg subcut QWEEK 28 Days Qty: 2 3RF insulin glargine [Lantus Solostar U-100 Insulin] 100 unit/mL (3 mL) insulin pen 28 unit subcut DAILY MDD 28 units 30 Days Qty: 9 11RF insulin lispro [Humalog U-100 Insulin] 100 unit/mL solution See Rx Instructions subcut TID MDD 30 30 Days Qty: 20 11RF Rx Instructions: 10 units tid before meals (DME) FreeStyle Walter 3 Plus Sensor Device See Rx Instructions .ROUTE .MEDSUPPLY Qty: 2 10RF Rx Instructions: As directed every 15 days Referrals: Radha Bran MD [Primary Care Provider, Internal Medicine] Clinical Impression: Atypical chest pain Interventions: ED Discharge Assessment Last Done: 04/26/25 00:32 Discharge Date/Time: 04/26/25 00:33 Print Language: [place]
[2025-04-25 14:11] LABS: MANUAL DIFF FLAG NO
[2025-04-25 14:13] LABS: Hematocrit 40.4 % (37.0-47.0); Hemoglobin 13.5 g/dl (12.0-16.0); Imm Gran Abs Auto 0.02 X10*3/uL (0.00-0.03); Imm Gran Pct Auto 0.2 % (0.0-0.4); Lymphocytes Absolute Auto 2.2 X10*3/uL (1.2-4.9); Mean Corpuscular HGB Conc 33.4 g/dl (31.0-35.0); Mean Corpuscular Hemoglobin 28.4 pg (27.0-33.0); Mean Corpuscular Volume 85.1 fL (80.0-98.0); NRBC Abs Auto 0.000 X10*3/uL (0.0-0.012); NRBC Pct Auto 0.0 /100WBC (0.0-0.2); Platelet Count 205 X10*3/uL (160-400); Red Blood Count 4.75 X10*6/uL (4.20-5.50); White Blood Count 8.2 X10*3/uL (4.8-10.8)
[2025-04-25 14:18] LABS: INTERNATIONAL NORM RATIO 1.1 (0.9-1.1); Prothrombin Time 12.1 SEC (10.9-12.4)
[2025-04-25 14:21] LABS: Partial Thromboplastin Time 20.5 SEC (26.7-34.1)
[2025-04-25 14:26] LABS: Alanine Aminotransferase 22 U/L (0-31); Albumin Level 3.9 g/dL (3.5-5.0); Alkaline Phosphatase 61 U/L (39-117); Anion Gap 11 (12-20); Aspartate Amino Transferase 26 U/L (5-31); Blood Urea Nitrogen 16 mg/dL (9-16); Calcium 9.2 mg/dL (8.4-10.2); Carbon Dioxide 25 mmol/L (22-29); Chloride 108 mmol/L (96-108); Creatinine Clr Calc Pharmacy 88.7; Estimated Glomerular Filt Rate > 60; Potassium 4.0 mmol/L (3.3-5.1); Sodium 140 mmol/L (135-145); Total Protein 7.1 g/dL (6.5-8.0)
[2025-04-25 14:32] LABS: B Type Natriuretic Peptide 27 pg/mL (<100)
[2025-04-25 14:43] LABS: Troponin-I High Sensitivity < 2.7 ng/L (<3.5-17.0)
[2025-04-25 14:49] LABS: Resp Syncy Virus RNA Qual PCR NEGATIVE (Negative); SARS COV2 PCR INHOUSE NEGATIVE (Negative)
[2025-04-25 16:11] LABS: Troponin-I High Sensitivity < 2.7 ng/L (<3.5-17.0)
[2025-04-25] MEDS: Albuterol Sulfate 2.5 MG, Albuterol Sulfate (0.083%) 2.5 MG 5 MG INHALE (16:40)
[2025-04-25 16:41] VITALS: PULSE 86; RESP 22; O2SAT 96
--- OUTSIDE RECORDS SUMMARY | 2025-04-25 16:41 | XMS_ITS ---
Author Name Maribel Vann NP Address [address] [place] [address] Phone [phone] [facility] Care Team Providers Care Freezer Person Name Role Phone Maribel Vann Unavailable [phone] [facility] Unavailable [place], [facility] Unavailable [phone] [place] [employer] Unavailable [phone] Unavailable Unavailable [phone] Unavailable Unavailable [phone] [employer] Unavailable [phone] Pedro Mohamud Unavailable [phone] Radha Bran Unavailable [phone] Reason for Referral Not Available Allergies, adverse reactions, alerts No known allergies History of medication use Medication Class Instructions Start Date End Date Fluocinolone Acetonide Body 0.01 % Oil APPLY BOTTLE TOPICALLY TO THE AFFECTED AREA IN THE MORNING 2022-08-13 No Data Available B-D KURTIS 2ND GEN PEN NDL [id number] USE TO INJECT FOUR TIMES DAILY 2022-08-28 [...] Data Available 2023-06-03 No D aries Available FlatpebbleTouch Verio Flex System w/Device Kit USE TO [...] time a day 2024-04-21 No Data Available Cotton Nasal [place] 0.65 % Solution Nasal 2 sprays intranasally [...] incontinence supplies ordered 2 months ago by [facility] cc, but has not received [...] arthritis Active 2023-09-24 N/A previously diagnosed 01/20/23 [employer] Ctrmanage painstablewill f/u with Rheum 11/2024 Low [...] Service Diagnosis/Co mplaint No Data Available [facility]2023 Morbid (severe) obesity due to excess caloriesBody mass index (BMI) 40.0-44.9, adultType 2 diabetes w unsp diabetic retinopathy w macular edemaMajor depressive disorder, recurrent, mildIron deficiency anemia, unspecifiedUnspecified urinary incontinenceUnspecified asthma, uncomplicatedObstructive sleep apnea (adult) (pediatric)2-part nondisp fx of surg nk of melecio luna, 7thDEssential (primary) hypertensionHistory of fallingDifficulty in walking, not elsewhere classified No Data Available [facility] 04/09/2023 No Data Available [facility] [place] 04/09/2023 No Data Available [facility] 04/09/2023 No Data Available [facility] 04[place]09/2023 No Data Available [facility] 04/09/2023 No Data Available [facility] [place] 04/09/2023 Estab. patient 20-29min; 1 stable chronic or 2 minor; add add modifier 95 for video, modifier 93 for phone [facility] [place] 05/06/2023 Type 2 diabetes w unsp diabe [...] for video, modifier 93 for phone [facility] [place] 05/06/2023 Estab. patient 20-29min; 1 stable chronic or 2 minor; add add modifier 95 for video, modifier 93 for phone [facility] 05/06/2023 Estab. patient 20-29min; 1 stable chronic or 2 minor; add add modifier 95 for video, modifier 93 for phone [facility] 05/06/2023 No Data Available [facility] 06/15/2023 History of fallingDifficulty in walking, not elsewhere classified No Data Available [facility] 06[place]15[place]2023 No Data Available [facility] 06[place]16[place]2023 History of fallingDifficulty in walking, not elsewhere classifiedPersonal history of (healed) traumatic fracture No Data Available [facility] 06/16/2023 No Data Available [facility]/16[place]2023 No Data Available [facility] 06[place]2023 No Data Available [facility] 07[place]08/2023 Difficulty in walking, not elsewhere classifiedHistory of fallingPersonal history of (healed) traumatic fracture No Data Available [facility] 07[place]2023 Estab. patient 30-39min; chronic exacerbation, 2 stable chronic or 1 acute illness add add modifier 95 for video, (do not use for phone, instead use [id number]) [facility]15[place]2023 Morbid (severe) obesity due to [...] (do not use for phone, instead use 90051-51) [facility] [place] 07[place]15/2023 Estab. patient 30-39min; chronic exacerbation, 2 stable chronic or 1 acute illness add add modifier 95 for video, (do not use for phone, instead use 40689-00) [facility] [place] 07/15/2023 Estab. patient 30-39min; chronic exacerbation, 2 stable chronic or 1 acute illness add add modifier 95 for video, (do not use for phone, instead use 46261-24) [facility] [place] 07/15/2023 Estab. patient 30-39min; chronic exacerbation, 2 stable chronic or 1 acute illness add add modifier 95 for video, (do not use for phone, instead use 13925-35) [facility] [place] 07/15/2023 No Data Available [facility] [place] 08/14/2023 Morbid (severe) obesity due to excess caloriesBariatric surgery statusUnspecified asthma, uncomplicatedHistory of fallingDifficulty in walking, not elsewhere classifiedPersonal history of (healed) traumatic fracture No Data Available [facility] [place] 08/14/2023 No Data Available [facility] [place] 09/09/2023 Urinary tract infection, sit e not specified No Data Available [facility] [place] 09/10/2023 Urinary tract infection, sit e not specifiedHistory of fallingDifficulty in walking, not elsewhere classifiedPersonal history of (healed) traumatic fracture No Data Available [facility] [place] 09/10/2023 Estab. patient 30-39min; chronic exacerbation, 2 stable chronic or 1 acute illness add add modifier 95 for video, (do not use for phone, instead use 61858-66) [facility] [place] 09/18/2023 Urinary tract infection, sit e not [...] (do not use for phone, instead use 53631-43) [facility] [place] 09/18/2023 Estab. patient 30-39min; chronic exacerbation, 2 stable chronic or 1 acute illness add add modifier 95 for video, (do not use for phone, instead use 06507-81) [facility] [place] 09/18/2023 Estab. patient 30-39min; chronic exacerbation, 2 stable chronic or 1 acute illness add add modifier 95 for video, (do not use for phone, instead use 26400-80) [facility] [place] 09/18/2023 Estab. patient 30-39min; chronic exacerbation, 2 stable chronic or 1 acute illness add add modifier 95 for video, (do not use for phone, instead use 76892-06) [facility] [place] 09/18/2023 Estab. patient 30-39min; chronic exacerbation, 2 stable chronic or 1 acute illness add add modifier 95 for video, (do not use for phone, instead use 90017-04) [facility] [place] 09/18/2023 Estab. patient 30-39min; chronic exacerbation, 2 stable chronic or 1 acute illness add add modifier 95 for video, (do not use for phone, instead use 52220-15) [facility] [place] 09/18/2023 Estab. patient 30-39min; chronic exacerbation, 2 stable chronic or 1 acute illness add add modifier 95 for video, (do not use for phone, instead use 98699-80) [facility]18[place] Estab. patient 30-39min; chronic exacerbation, 2 stable chronic or 1 acute illness add add modifier 95 for video, (do not use for phone, instead use 47291-07) [facility] [place] 09[place]18[place]2023 No Data Available [facility] 04[place]/2024 Morbid (severe) obesity due to excess caloriesBariatric surgery statusType 2 diabetes w unsp diabetic retinopathy w macular edemaUnspecified urinary incontinenceUnspecified asthma, uncomplicatedObstructive sleep apnea (adult) (pediatric)Essential (primary) hypertensionBody mass index (BMI) 40.0-44.9, adultMajor depressive disorder, recurrent, mildOther problems related to medical facilities and other health careHeadache, unspecifiedOther chronic pain No Data Available [facility]2024 No Data Available [facility] 04[place]2024 No Data Available [facility] [place]/21/2024 No Data Available [facility] [place]/2024 No Data Available [facility] [place]/2024 No Data Available [facility] [place]/2024 No Data Available [facility] 05/03/2024 Type 2 diabetes w unsp diabe tic retinopathy w macular edemaAllergic contact dermatitis due to plants, except foodEncounter for other specified aftercareOther problems related to medical facilities and other health careLong term (current) use of insulin No Data Available [facility] 05/03/2024 No Data Available [facility] 08/26/2024 Flu due to unidentified influenza virus w oth resp manifestPersons encountering health services in other specified circumstancesOther problems related to medical facilities and other health care No Data Available [facility] 08/26/2024 No Data Available [facility] [place] 08/26/20[place] Estab. patient 10-29min; 1 minor [...] tive Time Current Smoking Status Former smoker 2025-04-01 8 Sex Female History of Procedures Procedures Service Procedure code Service date Servicing provider Phone# No Data Available [id number] 2023-04-09 No Data Available No Data Available [...] 95 for video, modifier 93 for phone [id number] 2023-05-06 No Data Available No Data Availa [...] No Data Carli ilable No Data Available [id number] 2023-06-15 No Data Available No Data Available Medication List Documented (1159F) 1159F 2023-06-15 No Data Available No Data Carli ilable No Data Available [id number] 2023-06-16 No Data Available No Data Available Medication List Documented (1159F) 1159F 2023-06-16 No Data Available No Data Carli ilable Pain Assessment - Pain Documented on a Pain Scale (1125F) 1125F 2023-06-16 No Data Available No Data Carli ilable BMI obtained (3008F) 3008F 2023-06-16 No Data Availab le No Data Available No Data Available [id number] 2023-07-08 No Data Available No Data Available Medication List Documented (1159F) 1159F 2023-07-08 No Data Available No Data Carli ilable Estab. patient 30-39min; chronic exacerbation, 2 stable chronic or 1 acute illness add add modifier 95 for video, (do not use for phone, instead use 37422-57) [id number] 2023-07-15 No Data Available No Data Availa [...] No Data Carli ilable No Data Available [id number] 2023-08-14 No Data Available No Data Available Medication List Documented (1159F) 1159F 2023-08-14 No Data Available No Data Carli ilable No Data Available [id number] 2023-09-09 No Data Available No Data Available No Data Available [id number] 2023-09-10 No Data Available No Data Available Medication List Documented (1159F) 1159F 2023-09-10 No Data Available No Data Carli ilable Estab. patient 30-39min; chronic exacerbation, 2 stable chronic or 1 acute illness add add modifier 95 for video, (do not use for phone, instead use 43946-93) [id number] 2023-09-18 No Data Available No Data Availa [...] No Data Avail able No Data Available [id number] 2024-04-21 No Data Available No Data Available [...] le No Data Available No Data Available [id number] 2024-05-03 No Data Available No Data Available Medication List Documented (1159F) 1159F 2024-05-03 No Data Available No Data Carli ilable No Data Available [id number] 2024-08-26 No Data Available No Data Available [...] 95 for video, modifier 93 for phone [id number] 2024-09-22 No Data Available No Data Availa [...] 95 for video, modifier 93 for phone [id number] 2024-10-21 No Data Available No Data Availa ble Medication List Documented (1159F) 1159F 2024-10-21 No Data Available No Data Carli ilable Estab. patient 10-29min; 1 minor problem; add add modifier 95 for video, modifier 93 for phone [id number] 2024-11-24 No Data Available No Data Availa [...] Patient Education to avoid future hospitalization: Call [facility] if symptoms of illness develop.History of [...] Documented (1125F)Continue to see PCP. Follow-up with [facility] as needed for any acute or [...] units TID AC meals and FU with crown ceramist in February,Wears rafaela paduses inhaler Flovent BIDHas CPAP using nightlyContinue lovenox as directedAdvancing home PTencouraged UE activity as toleratedHas not been taking BP medication since surgery 2 months ago on broken footApril 2022 had a bad fall on steps at entrance to home. Fractured L foot, L?knee, L shoulderStill unable to walkUsing wheelchairDeatrium health [facility] productsEscitalopramWimoreno think about whether she [...] units TID AC meals and FU with crown ceramist in February,Wears rafaela padNeeds chux pads, XL pull-ups, gloves XLuses inhaler Flovent BIDHas CPAP using nightlyContinue lovenox as directedAdvancing home PTencouraged UE activity as toleratedHas not been taking BP medication since surgery 2 months ago on broken footApril 2022 had a bad fall on steps at entrance to home. Fractured L foot, L?knee, L shoulderStill unable to walkUsing wheelchairNow [facility] suzyEscitalopramRex think about whether she [...] foot, L?knee, L shoulderStill unable to walkUsing lbgybnhnpk16/16/2023er son, can only walk very short distances [...] unable to walkUsing wheelchairNow having [facility]er son, can only walk very short [...] and we need videocall. Tablet needs a grass farm laborer, will send and schedule videocall for next [...] unable to walkUsing wheelchairNow having PT [facility]3Per son, can only walk very short [...] to PT but after she returns from [place] in .Can start in October. 2023-08-14 12:38:06 [...] unable to walkUsing wheelchairNow having [facility]06/15/[facility]23er son, can only walk very short [...] and we need videocall. Tablet needs a grass farm laborer, will send and schedule videocall for next [...] 09/10/23.UPDATE 09/10/2023t has not yet gone to pick up and delivery driver prescription. Feels about the same. Education about [...] 09/10/23.UPDATE 09/10/2023t has not yet gone to pick up and delivery driver prescription. Feels about the same. Education about [...] unable to walkUsing wheelchairNow having PT [facility]3Per son, can only walk very short [...] and we need videocall. Tablet needs a grass farm laborer, will send and schedule videocall for next [...] units TID AC meals and FU with crown ceramist Reports stableWears rafaela padNeeds chux pads, XL pull-ups, gloves XLuses inhaler Flovent BIDHas CPAP using nightlyContinue lovenox as directedAdvancing home PTencouraged UE activity as toleratedHas not been taking BP medication aftersurgery on broken footUPDATE 4Reports compliance nowApril 2022 had a bad fall on steps at entrance to home. Fractured L lower leg, L shoulderStill unable to walkUsing wheelchairNow having PT [facility]3Per son, can only walk very short [...] and we need videocall. Tablet needs a grass farm laborer, will send and schedule videocall for next [...] 09/10/23.UPDATE 09/10/2023t has not yet gone to pick up and delivery driver prescription. Feels about the same. Education about [...] individual diagnosis for contingency plan.previously diagnosed 01/20/23 [employer] Ctrmanage painstable 2024-04-21 09:19:41 Phone (patient, pare nt, or guardian); 5-10 minutes of medical discussion (no modifier 95)Continue to see PCP. [facility] or disease [...] units TID AC meals and FU with crown ceramist Reports stableWears rafaela padNeeds chux pads, XL [...] modifier 95)Continue to see PCP. Follow-up with [facility] as needed for any acute or [...] Button for urgent needs and provided with [employer] phone # as an alternative method to [...] units TID AC meals and FU with crown ceramist Reports stable09/22/24feels well, denies hypo/hyperglycemic episodescontinues to [...] incontinence supplies ordered 2 months ago by [facility] cc, but has not received [...] Flovent BIDuses nebulizer 11/24/24denies SOBpreviously diagnosed 01/20/23 [place] [facility] Ctrmanage painstablewill f/u with Rheum 11/2024Vitamin D [...]
--- OUTSIDE RECORDS SUMMARY | 2025-04-25 16:42 | XMS_ITS | Encounter Summary ---
Author Organization [employer] Address [address] [place] [address] 7t [place] [address] Care Team Providers Care Transfer Controller Name Role Phone Rahda Bran MD Primary Care Provider + Encounter Details Date Type Department Care Team (Late st Contact Info) Description 04/25/2025 Orders Only GENERIC EXTERNAL DATA DEPARTMENT Provider, [...] Care Team (Late st Contact Info) Description 06/19/2025 2:00 PM EDT Office Visit [facility] MEDICINE [address] [place] [address] Radha Bran MD [address] [place] [address] 08/08/2025 1:00 PM EST Office Visit [facility] OPTOMETRY [address] [place] [address] Anel Starr, OD [address] [place] [address] documented as of this encounter Procedures Procedure Name Priority Date/Time Associated Diagnosis Comments HIGH SENSITIVITY TROPONIN I Routine 04/25/2025 3:47 PM EDT HIGH SENSITIVITY TROPONIN I Routine 04/25/2025 2:09 PM EDT SARS COV2/INFLUENZA A/B AND RSV RNA QL NAAT Routine 04/25/2025 2:09 PM EDT CBC WITH AUTO DIFFERENTIAL Routine 04/25/2025 2:09 PM EDT APTT Routine 04/25/2025 2:09 PM EDT PROTHROMBIN TIME-INR Routine 04/25/2025 2:09 PM EDT B TYPE NATRIURETIC PEPTIDE (BNP) Routine 04/25/2025 2:09 PM EDT COMPREHENSIVE METABOLIC PANEL Routine 04/25/2025 2:09 PM EDT XR CHEST 1 VIEW Routine 04/25/2025 1:19 PM EDT documented in this encounter Results * High Sensitivity Troponin I (04/25/2025 3:47 PM EDT) Pathologist [facility] TROPONIN I HIGH SENSITIVITY <2.7 <3.5 - 17.0 ng/L [facility] Comment:The [place] high sens itivity Troponin-I results should beused in conjunction with other diagnostic information suchas ECG, clinical observations and information, and patientsymptoms to aid in the diagnosis of [place]. 04/25/2025 3:47 PM EDT 04/25/2025 3:49 PM EDT us Generic External Data Provider LAB BLOOD ORDERAB LES Final Result [facility] [address] [place] [phone] * SARS-CoV-2 RNA, Influenza A/B, and RSV RNA, Ql NAAT (04/25/2025 2:09 PM EDT) [facility] Influenza A PCR NEGATIVE Negative [facility] Influenza B PCR NEGATIVE Negative [facility] Resp Syncy Virus RNA Qual PCR NEGATIVE Negative [facility] SARS COV2 PCR NEGATIVE Negative [facility] Comment:All test results mus t be correlated with clinical findings.Negative results do not preclude SARS-CoV2, influenza Avirus, influenza B virus and/or RSV infectionand should not be used as the sole basis for treatment orother patient management decisions. Negative results must becombined with clinical observations, patient history, andepidemiological information.This test has not been evaluated for monitoring treatment ofinfection.This test has been authorized by the FDA under an EmergencyUse Authorization (EUA) for use by authorized laboratories.Testing performed on the [employer] GeneXpert utilizingreal-time RT-PCR.All SARS CoV2 and positive influenza A/B results arereported to [facility]. 04/25/2025 2:09 PM EDT 04/25/2025 2:10 PM EDT Generic External Data Provider LAB MICROBIOLOGY - GENERAL ORDERABLES Final Result Performing Organization Address [facility] de Phone Number [facility] [address] [place] [phone] * High Sensitivity Troponin I (04/25/2025 2:09 PM EDT) [facility] TROPONIN I HIGH SENSITIVITY <2.7 <3.5 - 17.0 ng/L [facility] Comment:The [place] high sens itivity Troponin-I results should beused in conjunction with other diagnostic information suchas ECG, clinical observations and information, and patientsymptoms to aid in the diagnosis of [place]. 04/25/2025 2:09 PM EDT 04/25/2025 2:10 PM EDT Generic External Data Provider LAB BLOOD ORDERAB LES Final Result Performing Organization Address [facility] Co de Phone Number [facility] [address] [place] [phone] * B Type Natriuretic Peptide (BNP) (04/25/2025 2:09 PM EDT) [facility] B Type Natriuretic Peptide 27 <100 pg/mL [facility] 04/25/2025 2:09 PM EDT 04/25/2025 2:10 PM EDT Generic External Data Provider LAB BLOOD ORDERAB LES Final Result Performing Organization Address [facility] Co de Phone Number [facility] [address] [place] [phone] * (ABNORMAL) Comprehensive Metabolic Panel (04/25/2025 2:09 PM EDT) [facility] Sodium 140 135 - 145 mmol/L [facility] Potassium 4.0 3.3 - 5.1 mmol/L [facility] Chloride 108 96 - 108 mmol/L [facility] Carbon Dioxide 25 22 - 29 mmol/L [facility] Anion Gap 11(L) 12 - 20 [facility] Urea Nitrogen (BUN) 16 9 - 16 mg/dL [facility] Creatinine, Serum 0.63 0.5 - 1.4 mg/dL [facility] Creatinine Clr Calc Pharmacy 88.7 [facility] Comment:Provided height and weight: 157.48 cm,101.7 kg.eGFR (calculated from the MDRD study equation) and eCrCl(calculated from the Cockcroft-Gault equation) are based ondifferent parameters and may not yield comparable results.If eCrCl result is absurd, please check patient'sheight/weight. Estimated Glomerular Filt Rate >60 [facility] Comment:Chronic Kidney Disea se: Estimated GFR < 60 mL/min/1.02s1Kpuvih Kidney Disease: Estimated GFR < 15 mL/min/1.73m2 Glucose 99 60 - 115 mg/dL [facility] Calcium 9.2 8.4 - 10.2 mg/dL [facility] Bilirubin, Total 0.4 0.0 - 1.0 mg/dL [facility] Aspartate Amino Transferase 26 5 - 31 U/L [facility] Alanine Aminotransferase 22 0 - 31 U/L [facility] Total Protein 7.1 6.5 - 8.0 g/dL [facility] Albumin Level 3.9 3.5 - 5.0 g/dL [facility] Alkaline Phosphatase 61 39 - 117 U/L [facility] 04/25/2025 2:09 PM EDT 04/25/2025 2:10 PM EDT us Generic External Data Provider LAB BLOOD ORDERAB LES Final Result [facility] [address] [place] [phone] * (ABNORMAL) Partial Thromboplastin Time, Activated (APTT) (04/25/2025 2:09 PM EDT) Partial Thromboplastin Time 20.5(L) 26.7 - 34.1 SEC [facility] 04/25/2025 2:09 PM EDT 04/25/2025 2:10 PM EDT Generic External Data Provider LAB BLOOD ORDERAB LES Final Result Performing Organization Address [facility] Co de Phone Number [facility] [address] [place] [phone] * Prothrombin Time-INR (04/25/2025 2:09 PM EDT) [facility] Prothrombin Time 12.1 10.9 - 12.4 SEC [facility] INTERNATIONAL NORM RATIO 1.1 0.9 - 1.1 [facility] Comment:INTERNATIONAL NORMAL IZED RATIO (INR) REFERENCE RANGES Reference RangeFor patients not on anticoagulant therapy: 0.9 - 1.1INR ranges for oral anticoagulanttherapy:For prevention and treatment of venous thrombosis and pulmonary embolism: 2.0 - 3.0For acute myocardial infarction with aspirin therapy: 2.0 - 3.0For acute myocardial infarction without aspirin therapy: 3.0 - 4.0For patients with mechanical prosthetic heart valves: 2.5 - 3.5 04/25/2025 2:09 PM EDT 04/25/2025 2:10 PM EDT Generic External Data Provider LAB BLOOD ORDERAB LES Final Result Performing Organization Address [facility] Co de Phone Number [facility] [address] [place] [phone] * CBC auto differential (04/25/2025 2:09 PM EDT) [facility] White Blood Count 8.2 4.8 - 10.8 X10*3/uL [facility] Red Blood Count 4.75 4.20 - 5.50 X10*6/uL [facility] Hemoglobin 13.5 12.0 - 16.0 g/dl [facility] Hematocrit 40.4 37.0 - 47.0 % [facility] Mean Corpuscular Volume 85.1 80.0 - 98.0 fL [facility] Mean Corpuscular Hemoglobin 28.4 27.0 - 33.0 pg [facility] Mean Corpuscular HGB Conc 33.4 31.0 - 35.0 g/dl [facility] Red Cell Distribution Width 13.5 11.0 - 16.0 % [facility] Platelet Count 205 160 - 400 X10*3/uL [facility] Mean Platelet Volume 11.7 9.4 - 12.3 fL [facility] Neutrophils Percent Auto 65.0 45 - 73 % [facility] Imm Gran Pct Auto 0.2 0.0 - 0.4 % [facility] Lymphocytes Percent Auto 26.8 20 - 40 % [facility] Monocytes Percent Auto 6.4 2 - 11 % [facility] Eosinophils Percent Auto 1.2 0 - 4 % [facility] Basophils Percent Auto 0.4 0 - 2 % [facility] NRBC Pct Auto 0.0 0.0 - 0.2 /100WBC [facility] Neutrophils Absolute Auto 5.4 2.0 - 8.3 x10*3/uL [facility] Imm Gran Abs Auto 0.02 0.00 - 0.03 X10*3/uL [facility] Lymphocytes Absolute Auto 2.2 1.2 - 4.9 X10*3/uL [facility] Monocytes Absolute Auto 0.5 0.1 - 1.2 X10*3/uL [facility] Eosinophils Absolute Auto 0.1 0.0 - 0.4 X10*3/uL [facility] Basophils Absolute Auto 0.0 0.0 - 0.2 X10*3/uL [facility] NRBC Abs Auto 0.000 0.0 - 0.012 X10*3/uL [facility] 04/25/2025 2:09 PM EDT 04/25/2025 2:10 PM EDT us Generic External Data Provider LAB BLOOD ORDERAB LES Final Result [facility] [address] [place] [phone] * XR Chest 1 View (04/25/2025 1:19 PM EDT) Anatomical Region Laterality Modality Chest Radiographic Mecca ging 04/25/2025 1:19 PM EDT Narrative 04/25/2025 2:24 PM EDT [address] [address] XRay Report Signed Patient: Halley Sewell MR#: [id number] : 1950 Acct:[id number] Age/Sex: 75 / F ADM Date: 04/25/25 Loc: HO.ED Attending Dr: Ordering Physician: Patric Beckham Date of Service: 04/25/25 Procedure(s): XR chest 1V Accession Number(s): [id number] cc: Patric Beckham; Radha Bran MD EXAMINATION: XR CHEST CLINICAL INFORMATION: Chest pain COMPARISON: August 24, 2024 TECHNIQUE: Frontal view of the chest was obtained. FINDINGS: Poor inspiration. No consolidation, pleural fissure pneumothorax. Cardiomediastinal silhouette size is normal. Calcified plaque thoracic aorta. Multilevel thoracic spondylosis. Patient's large body habitus/obesity. Sutures in the left upper quadrant abdomen likely gastric sleeve, on prior CT chest dated December 04, 2022.. XR/XR chest 1V IMPRESSION: No acute airspace disease. Multilevel thoracic spondylosis. Obesity. Electronically signed by: Stone Villagran MD 04/25/2025 02:21 PM EDT RP Dictated By: Stone Ji MD Signed By: <Electronically signed by Stone Lucas MD in OV> 04/25/25 1421 DD/ 1319 TD/TT: 04/25/25 1415 [employer] Supervisor: Procedure Note Donotuseinterpreter, Image - 04/25/2025 [id number] [place] [address] XRay Report Signed Patient: Kyrie Sewell#: M [id number] : 1950cct:[id number] Age/Sex: 75 / FADM Date: 04/25/25 Loc: HO.ED Attending Dr: Ordering Physician: Patric Beckham Date of Service: 04/25/25 Procedure(s): XR chest 1V Accession Number(s): [id number] cc: Patric Beckham; Radha Bran MD EXAMINATION: XR CHEST CLINICAL INFORMATION: Chest pain COMPARISON: August 24, 2024 TECHNIQUE: Frontal view of the chest was obtained. FINDINGS: Poor inspiration. No consolidation, pleural fissure pneumothorax. Cardiomediastinal silhouette size is normal. Calcified plaque thoracic aorta. Multilevel thoracic spondylosis. Patient's large body habitus/obesity. Sutures in the left upper quadrant abdomen likely gastric sleeve, on prior CT chest dated December 04, 2022.. XR/XR chest 1V IMPRESSION: No acute airspace disease. Multilevel thoracic spondylosis. Obesity. Electronically signed by: Stone Villagran MD 04/25/2025 02:21 PM EDT Dictated By: Stone Ji MD Signed By: <Electronically signed by Stone Lucas MDin OV> 04/25/25 1421 DD/ 1319 TD/TT: 04/25/25 1415 [employer] Supervisor: [facility] External Provider IMG XR PROCEDURES Final Result documented in this encounter Visit Diagnoses Not on filedocumented in this encounter Additional Health Concerns Assessment Noted Time PHQ-9 Depression Total Score: 13 024 10:37 AM EST documented as of this encounter Care Teams Transfer Controller Relationship Specialty Start Date End Date Radha Bran MD [address] [place] [phone] PCP - General Family Medicine 10/16/20 documented as of this encounter
--- OUTSIDE RECORDS SUMMARY | 2025-04-25 16:42 | XMS_ITS | Encounter Summary ---
Author Organization [employer] Address [address] [place] [address] 7 [place] [address] Care Team Providers Care Energy Projects Lead Name Role Phone Radha Bran MD Primary Care Provider + Reason for Visit * Reason Onset Date Comments Letter for School/Work 10/16/2022 Encounter Details Date Type Department Care Team ([facility] st Contact Info) Description 10/16/2022 Telephone [facility] MEDICINE [address] [place] [phone] Radha Bran MD [address] [place], [place] [phone] Letter for School/Work Social History Tobacco Use [...] Description 06/19/2025 2:00 PM EDT Office Visit [facility] MEDICINE [address] [place] [address] Radha Bran MD [address] [place] [address] 08/08/2025 1:00 PM EST Office Visit [facility] OPTOMETRY [address] [place], [place] [phone] Anel Starr, OD [address] [place] [address] documented as of this encounter Visit Diagnoses Not on filedocumented in this encounter Care Teams Energy Projects Lead Relationship Specialty Start Date End Date Radha Bran MD [address] [place] [address] PCP - General Family Medicine 10/16/20 documented as of this encounter
--- OUTSIDE RECORDS SUMMARY | 2025-04-25 16:42 | XMS_ITS | Encounter Summary ---
Author Organization [facility] Address [address] [facility] [address] [place] [phone] Phone Care Team Providers Care Mold Maintenance Technician Name Role Phone Paul Farr NP, Lalita Primary Care Provider Olga jacinto Reason for Referral * MRI/CAT Scan - Closed Specialty Diagnoses / Procedures Referred By Nan jara Referred To Contact Radiology Diagnoses Hypertension, unspecified type Procedures NC Myocardial Perfusion Stress Single NC Myocardial Perfusion Exercise Multiple System, Provider Not In, [facility] [address] [address] Referral ID Status Reason Start Date Expiration Date Visits Re quested Visits Authorized [id number] Closed 10/13/2018 12/11/2018 1 1 Encounter Details Date Type Department Care Team (Latest Contact Info) Description 11/26/2018 Ancillary Orders [facility] [address] [place] [address] 3rd Floor, [address] [place] [address] System, Provider Not In, [facility] [address] [address] Hypertension, unspecified type Social History Tobacco Use Types Packs/Day Years Used Date Smoking Tobacco: Never Assessed Comments Unknown Sex and Gender Information Value Date Recorded Sex Assigned at Not on file Legal Sex Female 3:35 PM EST Gender Identity Not on file Sexual Orientation Not on file documented as of this encounter Plan of Treatment Not on file documented as of this encounter Results * NC Myocardial Perfusion Stress Single (11/26/2018 8:36 AM EDT) Nuc Stress EF 52 % LV Systolic Volume Index 30 mL/m2 LV Diastolic Volume Index 63 mL/m2 Anatomical Region Laterality Modality Heart Ultrasound Narrative 11/26/2018 4:29 PM EDT Normal study. There is no evidence of myocardial infarction or ischemia. Normal LV size and function with no regional wall motion abnormalities. Very low likelihood of hemodynamically significant coronary artery disease. Low risk study for myocardial events or cardiac in the next two years. Nuclear Study Quality TYPE OF STUDY: Myocardial Perfusion Imaging after exercise utilizing a standard Tito protocol with gated SPECT. PROTOCOL USED: Stress protocol only in the supine and prone position. Images were obtainedin gated tomographic technique. Images were processed in SPECT format, reconstructed tomographically and compared [id number] in short axis, horizontal long axis and vertical long axis. DOSE: Technetium 99m Sestamibi 12.6 mCi injected intravenously during stress on 11/26/2018 with post injection scan time of 20 minutes. Overall image quality is good. Breast attenuation artifact is present. Study was gated successfully. Perfusion Defect The lung to heart ratio is 0.29. Response to Stress BMI: 45.5 Pt exercised for 4:49 min on a TITO protocol achieving 7 METS. Test terminated due to fatigue. Baseline resting HR was 88. Max heart rate achieved was 146 (94% MPHR). 1. EKG - Baseline EKG showed normal sinus rhythm. No ischemic EKG changes with exercise. 2. SYMPTOMS -no chest pain. 3. EXERCISE PHYSIOLOGY -normal blood pressure response to exercise. Average functional capacity for age. 4. ARRHYTHMIAS -occasional PACs noted. Conclusion -normal stress test. Nuclear images pending and will be reported separately. See attached stress report for full details. Bev Carrera NP . Stress Function Comments Post-stress ejection fraction was 52%. Stress end diastolic index: 63 mL/m2. Stress end systolic index: 30 mL/m2. Nuclear Prior Study There is no prior study available for comparison. Perfusion Scoring Stress Summed Score: 0 Percent Normal: 0.00% The left ventricular perfusion is normal. us Provider Not In System PhD CV NM CARDIAC Final Result documented in this encounter Visit Diagnoses Diagnosis Hypertension, unspecified type Hypertension, unspecified type documented in this encounter Care Teams Mold Maintenance Technician Relationship Specialty Start Date End Date Lalita Miller NP PCP - General 11/03/18 documented as of this encounter Additional Source Comments The information contained in this document represents components of the legal health record. It is not the complete legal health record.[facility]
--- OUTSIDE RECORDS SUMMARY | 2025-04-25 16:42 | XMS_ITS | Encounter Summary ---
Author Organization [employer] Address [address] [place] [address] 7t [place] [address] Care Team Providers Care Animal Keeper Name Role Phone Radha Bran MD Primary Care Provider + Reason for Visit * Reason Onset Date Comments Appointment 01/20/2025 Encounter Details Date Type Department Care Team (Late st Contact Info) Description 01/20/2025 Telephone [facility] ADULT DENTAL [address] [place], [place] [phone] Raymond Galeas DDS [address] [place] [address] Appointment Social History Tobacco Use Types Packs/Day Years [...] encounter Miscellaneous Notes * Telephone Encounter - Yannick Alvarado - 01/20/2025 9:43 AM EDT PT HAS [facility] WE ACCEPT [facility] UNABLE TO POST COVERAGE FOR EMERGENCY APPT TODAY CS documented in this encounter Plan of Treatment Upcoming Encounters Date Type Department Care Team (Late st Contact Info) Description 06/19/2025 2:00 PM EDT Office Visit [facility] MEDICINE [address] [place] [address] Radha Bran MD [address] [place] [address] 08/08/2025 1:00 PM EST Office Visit [facility] OPTOMETRY [address] [place] [address] Anel Starr, OD [address] [place] [address] documented as of this encounter Visit Diagnoses Not on filedocumented in this encounter Additional Health Concerns Assessment Noted Time PHQ-9 Depression Total Score: 13 024 10:37 AM EST documented as of this encounter Care Teams Animal Keeper Relationship Specialty Start Date End Date Radha Bran MD [address] [place] [address] PCP - General Family Medicine 10/16/20 documented as of this encounter
--- OUTSIDE RECORDS SUMMARY | 2025-04-25 16:42 | XMS_ITS | Encounter Summary ---
Author Organization [employer] Address [address] [place] [address] [address] [place] [address] Care Team Providers Care Account Support Analyst Name Role Phone Radha Bran MD Primary Care Provider + Reason for Visit * Reason Comments Med Refill Encounter Details Date Type Department Care Team ([facility] Contact Info) Description 04/25/2025 Refill [facility] MEDICINE [address] [place] [address] Radha Bran MD [address] [place] [address] Social History Tobacco Use Types Packs/Day Years [...] Description 06/19/2025 2:00 PM EDT Office Visit [facility] MEDICINE [address] [place] [address] Radha Bran MD [address] [place] [address] 08/08/2025 1:00 PM EST Office Visit [facility] OPTOMETRY [address] [place] [address] TarkaAnel, OD [address] [place] [address] documented as of this encounter Visit Diagnoses Not on filedocumented in this encounter Additional Health Concerns Assessment Noted Time PHQ-9 Depression Total Score: 13 024 10:37 AM EST documented as of this encounter Care Teams Account Support Analyst Relationship Specialty Start Date End Date Radha Bran MD [address] [place] [address] PCP - General Family Medicine 10/16/20 documented as of this encounter
--- OUTSIDE RECORDS SUMMARY | 2025-04-25 16:42 | XMS_ITS | Encounter Summary ---
Author Organization [employer] [facility] Address [address] [place] [address] 7 [place] [address] Care Team Providers Care Electro Plater Name Role Phone Radha Bran MD Primary Care Provider + Encounter Details Date Type Department Care Team (Late st Contact Info) Description 07/28/2022 Abstract [facility] MEDICINE [address] [place] [phone] ProviderBritany MD Social History Tobacco Use Types [...] Description 06/19/2025 2:00 PM EDT Office Visit [facility] MEDICINE [address] [place] [phone] Radha Bran MD [address] [place] [address] 08/08/2025 1:00 PM EST Office Visit [facility] OPTOMETRY [address] [place] [address] Anel Starr, OD [address] [place] [address] documented as of this encounter Visit Diagnoses Not on filedocumented in this encounter Care Teams Electro Plater Relationship Specialty Start Date End Date Radha Bran MD [address] [place] [address] PCP - General Family Medicine 10/16/20 documented as of this encounter
--- OUTSIDE RECORDS SUMMARY | 2025-04-25 16:42 | XMS_ITS | Encounter Summary ---
Author Organization [employer] Address [address] [facility] [address] [place] [address] Care Team Providers Care Police Artist Name Role Phone Radha Bran MD Primary Care Provider + Encounter Details Date Type Department Care Team ([facility] st Contact Info) Description 08/25/2024 Orders Only [facility] MEDICINE [address] [place] [address] Radha Bran MD [address] [place] [address] Social History Tobacco Use Types Packs/Day Years [...] 06/19/2025 2:00 PM EDT Office Visit [facility] [address] [place] [address] Radha Bran MD [address] [place] [address] 08/08/2025 1:00 PM EST Office Visit [facility] OPTOMETRY [address] [place] [address] Tarka, Anel, OD [address] [place] [address] documented as of this encounter Visit Diagnoses Not on filedocumented in this encounter Additional Health Concerns Assessment Noted Time PHQ-9 Depression Total Score: 13 024 10:37 AM EST documented as of this encounter Care Teams Police Artist Relationship Specialty Start Date End Date Radha Bran MD [address] [place] [id number] PCP - General Family Medicine 10/16/20 documented as of this encounter
--- OUTSIDE RECORDS SUMMARY | 2025-04-25 16:42 | XMS_ITS | Clinical Summary ---
Author Organization [employer] Address [address] [place] [address] 7t [place] [address] Care Team Providers Care Information Technology Consultant Name Role Phone Dominick Bran MD Primary Care Provider + Allergies Active Allergy Reactions Criticality Noted Date Comments Pollen Extract Cough High 04/30/2024 Medications * This document contains information received [...] Active Blood Pressure Monitoring (Blood Pressure Cuff) [facility] blood pressure test kit-large cuff USE DIRECTED [...] meal 30 capsule 11 10/10/19 23 Active Additional Information Patient not taking.Reported on 02/21/2025 Diclofenac Sodium 1 % gel 08/28/20 22 [...] morning. 90 tablet 3 01/21/20 23 Active Additional Information Patient not taking.Reported on 02/21/2025 Insulin Glargine Solostar 100 UNIT/ML solution pen-injectorIn dications:Type I or II open displaced comminuted fracture of shaft of left tibia with routine healing, subsequent encounter Inject 30 Units under the skin in the morning. Inject 24u/hs (endocrinology refills) 10 mL 3 10/12/19 24 Active Additional Information Patient not taking.Reported on 02/21/2025 hydrOXYzine pamoate (Vistaril) 25 MG capsule Take 1 capsule (25 mg) by mouth every 6 (six) hours if needed for anxiety. 45 capsule 1 10/27/19 24 Active irbesartan (Avapro) 75 MG tablet Take 1 tablet (75 mg) by mouth in the morning. 30 tablet 11 12/04/19 Active Additional Information Patient not taking.Reported on 02/21/2025 BD Pen Needle Nora 2nd Gen 32G X 4 MM misc Use as instructed 100 each 05/04/20 Active Polyvinyl Alcohol-Povido ne 5-6 MG/ML solution Administer 2 drops into affected eye(s) 4 times daily. 15 mL 3 05/04/20 24 2024 Active Additional Information Patient not taking.Reported on 02/21/2025 gabapentin (Neurontin) 100 MG capsuleIndicat ions:Type I or II open displaced comminuted fracture of shaft of left tibia with routine healing, subsequent encounter TAKE 1 CAPSULE(100 MG) BY MOUTH EVERY 12 HOURS 60 capsule 3 12/01/19 25 Active acetaminophen (Tylenol 8 Hour) 650 MG ER tablet Take 1 tablet (650 mg) by mouth every 8 (eight) hours if needed for mild pain. Do not crush, chew, or split. 30 tablet 01/21/20 25 Active escitalopram (Lexapro) 20 MG tablet TAKE 1 TABLET(20 MG) BY MOUTH EVERY DAY 30 tablet 03/27/20 25 Active escitalopram (Lexapro) 20 MG tablet TAKE 1 TABLET(20 MG) BY MOUTH EVERY DAY 30 tablet 02/29/20 25 2024 Discontinued Active Problems Problem Noted Date Diagnosed Date Acute hyperglycemia 03/28/2025 Acute lumbar myofascial strain 03/28/2025 Angiolipoma 03/28/2025 Angiomyolipoma of kidney 03/28/2025 Asthma 03/28/2025 Bilateral primary osteoarthritis of knee 025 Carpal tunnel syndrome of right wrist 03/28/2025 Chronic idiopathic constipation 03/28/2025 Closed comminuted fracture of left humerus 03/28 Dermatitis 03/28/2025 Diabetes 03/28/2025 Diabetic polyneuropathy asso ciated with type 2 diabetes mellitus 03/28/2025 Displaced fracture of distal end of fibula 03/28 Dizziness 03/28/2025 Dyslipidemia 03/28/2025 Fall 03/28/2025 Fracture of head of left humerus 03/28/2025 History of sleeve gastrectomy 03/28/2025 Medication side effect 03/28/2025 Nausea & vomiting 03/28/2025 Numbness and tingling in both hands 03/28/2025 Numbness of hand 03/28/2025 Morbid obesity 03/28/2025 Obesity due to excess calories 03/28/2025 Obesity 03/28/2025 Osteoarthritis of left hip 03/28/2025 Primary osteoarthritis involving multiple joints 03/28/2025 Proteinuria 03/28/2025 Right hand pain 03/28/2025 Urinary tract infection 03/28/2025 Cholelithiasis 03/28/2025 Hypertension 03/28/2025 GERD (gastroesophageal reflux disease) Abdominal pain 03/28/2025 Diabetic nephropathy 03/28/2025 REY (obstructive sleep apnea) 03/28/2025 Displaced comminuted fractur e of shaft of left tibia, initial encounter for closed fracture 03/28/2025 Fracture of shaft of left tibia 03/28/2025 Fracture of left tibial plateau 03/28/2025 Post-traumatic osteoarthritis of left knee 03/28 Epigastric pain 03/28/2025 Vitamin A deficiency 03/28/2025 Trigger finger of all digits of both hands 03/28 Severe dental caries 01/20/2025 Pain, dental 01/20/2025 Dental abscess 01/20/2025 SOB (shortness of breath) on exertion 11/03/2024 [...] more week. Will refer to [facility] for assistance to move to a [...] intervention , [facility], Comply with medication [...] better controlled She has an appointment w/ property technician in the next 2 wks Continue Humalog + Lantus 24 units + Mounjaro Counseled re more frequent low calorie/carb meals. Check fgstk daily Encouraged physical activity as tolerated. FU w/ property technician Assessment & Plan (10/12/2023 2:48 PM EST): [...] units TID AC meals and FU with property technician in February, she will fu with me in 12 weeks Assessment & Plan (01/09/2023 11:10 AM EDT): Uncontrolled. Increase Lantus to 30 units per day and no other medication changes, follow up with property technician. Assessment & Plan (09/24/2022 10:50 AM EST): Uncontrolled. A1C is worse than last month. Most likely related to acute URI at this time. No change in medications, FU closely with property technician. COVID-19 09/24/2022 Assessment & Plan (09/24/2022 10:51 [...] covid test is positive. Lesion of right [place] kidney 09/24/2022 Assessment & Plan (09/24/2022 10:53 [...] 11:08 AM EDT): Refer to [facility] /[facility] to assist with moving to [...] she seems to be overdue for Avapro [employer]. Continue Avapro 75mg and fu with me [...] Encounters Date Type Department Care Team Description 04/25/2025 Orders Only GENERIC EXTERNAL DATA DEPARTMENT Provider, Generic External Data 04/25/2025 Refill [facility] [address] [place] [address] Dominick Bran MD 04/17/2025 Orders Only GENERIC EXTERNAL DATA DEPARTMENT Provider, Generic External Data 04/06/2025 11:00 AM EDT Office Visit [facility] [address] [place] [address] Thomas-Miller, Marisel, DDS Full coverage crown needed for root canal-treated tooth (Primary Dx) 04/03/2025 Telephone [facility] [address] [facility] [place] [address] Dominick Bran MD No Show 03/31/2025 Telephone [facility] [address] [facility] [place] [address] Dominick Bran MD CHART PREP 03/29/2025 11:00 AM EDT Office Visit [facility] [address] [facility] [place] [address] Thomas-Miller, Marisel, DDS 03/28/2025 9:00 AM EDT Office Visit [facility] [address] [facility] [place] [address] Thomas-Miller, Marisel, DDS Dental caries (Primary Dx); Full coverage crown needed for root canal-treated tooth 03/28/2025 Telephone [facility] [address] [facility] [place] [address] Thomas-Miller, Marisel, DDS 03/26/2025 Refill [facility] [address] [facility] [place] [address] Dominick Bran MD 03/15/2025 Telephone [facility] [address] [place] [address] Dominick Bran MD No Show 03/14/2025 Telephone [facility] [address] [facility] [place] [address] Dominick Bran MD Chart Prep 02/27/2025 Refill [facility] [address] [place] [address] LamontJaja FNP 02/21/2025 9:00 AM EDT Office Visit [facility] [address] [facility] [place] [address] Thomas-Miller, Marisel, DDS Dental caries (Primary Dx) 02/16/2025 Orders Only GENERIC EXTERNAL DATA DEPARTMENT Provider, Generic External Data 02/01/2025 Orders Only GENERIC EXTERNAL DATA DEPARTMENT Provider, Generic External Data 01/29/2025 Refill [facility] [address] [place] [address] Dominick Bran MD from Last 3 Months Immunizations Immunization Administration Dates Next Due Hep B, adult [...] Sign Reading Time Taken Comments Blood Pressure 124/78 04/06/2025 11:04 AM EDT Pulse 68 01/20/2025 1:07 PM EDT Temperature 37.1 C (98.8 F) 05/04/2024 11:34 AM EDT Respiratory Rate 24 05/04/2024 11:34 AM EDT [...] Description 06/19/2025 2:00 PM EDT Office Visit [facility] [address] [place] [address] Dominick Bran MD [address] [place] [address] 08/08/2025 1:00 PM EST Office Visit [facility] [address] [place] [address] Anel Starr, OD [address] [place] [address] Health Maintenance Due Date Last Done Comments [...] 10/30, 11/26/2021, Additional history exists Depression Monitoring 04/26/2024 10/27/2023, 024 COVID-19 Vaccine ( season) 2024 10/12/2023, 07/14/2022, 12/23/2021, Additional history exists Colonoscopy 10/04/2024 10/04/2019 Colorectal Cancer Screening 10/04/2024 SDOH Screening 10/12/2024 10/12/2023 Diabetes: Foot Exam 03/14/2025 03/14/2024, 03/14/2024, 03/14/2024, Additional history exists Influenza Vaccine (#1) 2025 , 06/26/2022, 10/01/2021, Additional history exists Diabetes: Hemoglobin A1C 05/04/2025 025, 05/24/2024, 03/14/2024, Additional history exists Lipid Panel 11/09/2025 11/09/2024, 10/02, 11/19/2022, Additional history exists Tobacco Screening 04/06/2026 04/06/2025 DTaP/Tdap/Td Vaccines (3 - Td or Tdap) [...] patient's age to complete this topic Meningococcal B Vaccine Aged Out No l onger eligible based on patient's age to complete [...] TROPONIN I Routine 04/25/2025 2:09 PM EDT B TYPE NATRIURETIC PEPTIDE (BNP) Routine 04/25/2025 2:09 PM EDT COMPREHENSIVE METABOLIC PANEL Routine 04/25/2025 2:09 PM EDT APTT Routine 04/25/2025 2:09 PM EDT PROTHROMBIN TIME-INR Routine 04/25/2025 2:09 PM EDT CBC WITH AUTO DIFFERENTIAL Routine 04/25/2025 2:09 PM EDT SARS COV2/INFLUENZA A/B AND RSV RNA QL NAAT Routine 04/25/2025 2:09 PM EDT XR CHEST 1 VIEW Routine 04/25/2025 1:19 PM EDT GLUCOSE, WHOLE BLOOD Routine 04/17/2025 1:06 PM EDT CASE PRESENTATION, DETAILED AND EXTENSIVE TREATMENT PLANNING Routine 04/06/2025 11:00 AM EDT Full coverage crown needed for root canal-treated tooth INTRAORAL - PERIAPICAL FIRST RADIOGRAPHIC IMAGE Routine 04/06/2025 11:00 AM EDT Full coverage crown needed for root canal-treated tooth 6 CROWN - PORCELAIN/CERAMIC Routine 04/06/2025 11:00 AM EDT Full coverage crown needed for root canal-treated tooth INTRAORAL - PERIAPICAL FIRST RADIOGRAPHIC IMAGE Routine 03/29/2025 11:00 AM EDT CASE PRESENTATION, DETAILED AND EXTENSIVE TREATMENT PLANNING Routine 03/28/2025 9:00 AM EDT Dental caries Full coverage crown needed for root canal-treated tooth CROWN PREP Routine 03/28/2025 9:00 AM EDT Dental caries Full coverage crown needed for root canal-treated tooth 6 PREFABRICATED POST AND CORE IN ADDITION TO CROWN Routine 03/28/2025 9:00 AM EDT Dental caries Full coverage crown needed for root canal-treated tooth AMB REFERRAL TO RHEUMATOLOGY Routine 02/28/2025 Positive DOMINICK (antinuclear antibody) Fatigue, unspecified type CASE PRESENTATION, DETAILED AND EXTENSIVE TREATMENT PLANNING Routine 02/21/2025 9:00 AM EDT 6 ENDODONTIC THERAPY, ANTERIOR TOOTH Routine 02/21/2025 9:00 AM EDT GLUCOSE, WHOLE BLOOD Routine 02/16/2025 1:37 PM EDT GLUCOSE, WHOLE BLOOD Routine 02/01/2025 1:54 PM EDT HM HEMOGLOBIN A1C Routine 02/01/2025 HEPATITIS C AB W/REFL TO HCV RNA, QN, PCR Routine 11/09/2024 8:00 AM EDT Chronic fatigue LIPID PANEL, STANDARD Routine 11/09/2024 8:00 AM EDT Chronic fatigue HM MAMMOGRAPHY Routine 11/26/2021 HM COLONOSCOPY Routine 10/04/2019 from Last 3 Months or Most Recently Relevant to Health Maintenance Results * High Sensitivity Troponin I (04/25/2025 3:47 PM EDT) Only the most recent of2 resultswithin the time period is included. Pathologist [facility] TROPONIN I HIGH SENSITIVITY <2.7 <3.5 - 17.0 ng/L [facility] Comment:The Iraheta high sens itivity Troponin-I results should beused in conjunction with other diagnostic information suchas ECG, clinical observations and information, and patientsymptoms to aid in the diagnosis of [place]. 04/25/2025 3:47 PM EDT 04/25/2025 3:49 PM EDT us Generic External Data Provider LAB BLOOD ORDERAB LES Final Result [facility] [address] [place] [phone] * SARS-CoV-2 RNA, Influenza A/B, and RSV RNA, Ql NAAT (04/25/2025 2:09 PM EDT) Pathologist [facility] Influenza A PCR NEGATIVE Negative [facility] Influenza B PCR NEGATIVE Negative [facility] Resp Syncy Virus RNA Qual PCR NEGATIVE Negative [facility] SARS COV2 PCR NEGATIVE Negative [facility] Comment:All test results mus t be [...] use by authorized laboratories.Testing performed on the 1bib GeneXpert utilizingreal-time RT-PCR.All SARS CoV2 and positive influenza A/B results arereported to [facility]. 04/25/2025 2:09 PM EDT 04/25/2025 2:10 PM EDT us Generic External Data Provider LAB MICROBIOLOGY - GENERAL ORDERABLES Final Result [facility] [address] [place] [phone] * CBC auto differential (04/25/2025 2:09 PM EDT) White Blood Count 8.2 4.8 - 10.8 X10*3/uL [facility] Red Blood Count 4.75 4.20 - 5.50 X10*6/uL [facility] Hemoglobin 13.5 12.0 - 16.0 g/dl [facility] Hematocrit 40.4 37.0 - 47.0 % [facility] Mean Corpuscular Volume 85.1 80.0 - 98.0 fL [facility] Mean Corpuscular Hemoglobin 28.4 27.0 - 33.0 pg [facility] Mean Corpuscular HGB Conc 33.4 31.0 - 35.0 g/dl [facility] Red Cell Distribution Width 13.5 11.0 - 16.0 % [facility] Platelet Count 205 160 - 400 X10*3/uL [facility] Mean Platelet Volume 11.7 9.4 - 12.3 fL [facility] Neutrophils Percent Auto 65.0 45 - 73 % [facility] Imm Gran Pct Auto 0.2 0.0 - 0.4 % [facility] Lymphocytes Percent Auto 26.8 20 - 40 % [facility] Monocytes Percent Auto 6.4 2 - 11 % [facility] Eosinophils Percent Auto 1.2 0 - 4 % [facility] Basophils Percent Auto 0.4 0 - 2 % [facility] NRBC Pct Auto 0.0 0.0 - 0.2 /100WBC [facility] Neutrophils Absolute Auto 5.4 2.0 - 8.3 x10*3/uL [facility] Imm Gran Abs Auto 0.02 0.00 - 0.03 X10*3/uL [facility] Lymphocytes Absolute Auto 2.2 1.2 - 4.9 X10*3/uL [facility] Monocytes Absolute Auto 0.5 0.1 - 1.2 X10*3/uL [facility] Eosinophils Absolute Auto 0.1 0.0 - 0.4 X10*3/uL [facility] Basophils Absolute Auto 0.0 0.0 - 0.2 X10*3/uL [facility] NRBC Abs Auto 0.000 0.0 - 0.012 X10*3/uL [facility] 04/25/2025 2:09 PM EDT 04/25/2025 2:10 PM EDT us Generic External Data Provider LAB BLOOD ORDERAB LES Final Result Performing Organization Address [facility] Co de Phone Number [facility] [address] [place] [phone] * (ABNORMAL) Partial Thromboplastin Time, Activated (APTT) (04/25/2025 2:09 PM EDT) Partial Thromboplastin Time 20.5(L) 26.7 - 34.1 SEC [facility] 04/25/2025 2:09 PM EDT 04/25/2025 2:10 PM EDT us Generic External Data Provider LAB BLOOD ORDERAB LES Final Result Performing Organization Address City/[facility]/ZIP Co de Phone Number [facility] [address] [place] [phone] * Prothrombin Time-INR (04/25/2025 2:09 PM EDT) [facility] Prothrombin Time 12.1 10.9 - 12.4 SEC [facility] INTERNATIONAL NORM RATIO 1.1 0.9 - 1.1 [facility] Comment:INTERNATIONAL NORMAL IZED RATIO (INR) REFERENCE [...] ORDERAB LES Final Result Performing Organization Address City/[facility]/ZIP Co de Phone Number [facility] [address] [place] [phone] * B Type Natriuretic Peptide (BNP) (04/25/2025 2:09 PM EDT) [facility] B Type Natriuretic Peptide 27 <100 pg/mL [facility] 04/25/2025 2:09 PM EDT 04/25/2025 2:10 PM EDT Generic External Data Provider LAB BLOOD ORDERAB LES Final Result Performing Organization Address [facility]/ZIP Co de Phone Number [facility] [address] [place] [phone] * (ABNORMAL) Comprehensive Metabolic Panel (04/25/2025 2:09 PM EDT) [facility] Sodium 140 135 - 145 mmol/L [facility] Potassium 4.0 3.3 - 5.1 mmol/L [facility] Chloride 108 96 - 108 mmol/L [facility] Carbon Dioxide 25 22 - 29 mmol/L [facility] Anion Gap 11(L) 12 - 20 [facility] Urea Nitrogen (BUN) 16 9 - 16 mg/dL [facility] Creatinine, Serum 0.63 0.5 - 1.4 mg/dL [facility] Creatinine Clr Calc Pharmacy 88.7 [facility] Comment:Provided height and weight: 157.48 cm,101.7 kg.eGFR (calculated from the MDRD study equation) and eCrCl(calculated from the Cockcroft-Gault equation) are based ondifferent parameters and may not yield comparable results.If eCrCl result is absurd, please check patient'sheight/weight. Estimated Glomerular Filt Rate >60 [facility] Comment:Chronic Kidney Disea se: Estimated GFR < 60 mL/min/1.23p1Cyijea Kidney Disease: Estimated GFR < 15 mL/min/1.73m2 Glucose 99 60 - 115 mg/dL [facility] Calcium 9.2 8.4 - 10.2 mg/dL [facility] Bilirubin, Total 0.4 0.0 - 1.0 mg/dL [facility] Aspartate Amino Transferase 26 5 - 31 U/L [facility] Alanine Aminotransferase 22 0 - 31 U/L [facility] Total Protein 7.1 6.5 - 8.0 g/dL [facility] Albumin Level 3.9 3.5 - 5.0 g/dL [facility] Alkaline Phosphatase 61 39 - 117 U/L [facility] 04/25/2025 2:09 PM EDT 04/25/2025 2:10 PM EDT us Generic External Data Provider LAB BLOOD ORDERAB LES Final Result [facility] [address] [place] [phone] * XR Chest 1 View (04/25/2025 1:19 PM EDT) Anatomical Region Laterality Modality Chest Radiographic [place] ging 04/25/2025 1:19 PM EDT Narrative 04/25/2025 2:24 PM EDT [address] [address] XRay Report Signed Patient: Halley Sewell MR#: [id number] : 1950 Acct:[id number] Age/Sex: 75 / F ADM Date: 04/25/25 Loc: HO.ED Attending Dr: Ordering Physician: Patric Beckham Date of Service: 04/25/25 Procedure(s): XR chest 1V Accession Number(s): [id number] cc: Patric Beckham; Dominick Bran MD EXAMINATION: XR CHEST CLINICAL INFORMATION: [...] 04/25/25 1421 DD/ 1319 TD/TT: 04/25/25 1415 Table Games Floor Supervisor: Procedure Note Donotuseinterpreter, Image - 04/25/[address] [address] XRay Report Signed Patient: Vicenta SewellR#: Buddy [id number] : 1950cct:[id number] Age/Sex: 75 / FADM Date: 04/25/25 Loc: HO.ED Attending Dr: Ordering Physician: Patric Beckham Date of Service: 04/25/25 Procedure(s): XR chest 1V Accession Number(s): [id number] cc: Patric Beckham; Dominick Bran MD EXAMINATION: XR CHEST CLINICAL INFORMATION: [...] 04/25/25 1421 DD/ 1319 TD/TT: 04/25/25 1415 Table [employer] Floor Supervisor: [facility] External Provider IMG XR PROCEDURES Final Result * (ABNORMAL) Glucose, Whole Blood (04/17/2025 1:06 PM EDT) Only the most recent of3 resultswithin the time period is included. Glucose, Whole Blood 124(H) 60 - 115 mg/dL [facility] Comment:METER #: [id number] 0Testing performed in the Endocrinology Department [address] , [address], [facility]. 04/17/2025 1:06 PM EDT 04/17/2025 1:12 PM EDT Generic External Data Provider LAB BLOOD ORDERAB LES Final Result [facility] [address] [place] [phone] * Referral to Rheumatology (02/28/2025) Malia Hall MD OUTPATIENT REFERRAL O RDERABLES Final Result * (ABNORMAL) HM Hemoglobin A1c (02/01/2025) Pathologist [facility] Hemoglobin A1C 9.1(A) 4.0 - 5.7 % Narrative Charla Martínez - 02/01/2025 See external hospital admission note on 02/01/2025 Historical Provider HEALTH MAINTENANCE Final Result * Hepatitis C Antibody with Reflex to HCV, RNA, Quantitative, Real-Time PCR (11/09/2024 8:00 AM EDT) Pathologist [facility] Hepatitis C Antibody Nonreactive Nonreactive [facility] Comment:Antibodies to HCV no t detected; does not exclude early acuteHCV infection. Blood Venous blood specimen / Unknown 11/09/2024 8:00 AM EDT 11/09/2024 8:11 AM EDT Malia Hall MD LAB BLOOD ORDERABLES Final Result [facility] [address] [place] [phone] * Lipid Panel, Standard (11/09/2024 8:00 AM EDT) Triglycerides 98 <150 mg/dL [facility] Comment:Desirable Triglyceri de: less than 150 mg/dLBorderline High Triglyceride 150-199 mg/dLHigh Triglyceride: 200-499 mg/dLVery High Triglyceride: greater than or equal to 5OO mg/dL Cholesterol 126 <200 mg/dL [facility] Comment:Desirable Cholestero l: less than 200 mg/dLBorderline High Cholesterol: 200-239 mg/dLHigh Cholesterol: greater than 239 mg/dL LDL Cholesterol Calculated 62 <100 mg/dL [facility] Comment:Desirable LDL: less than 100 mg/dLNear Optimal/Above Optimal LDL: 110- 129 mg/dLBorderline High LDL: 130-159 mg/dLHigh LDL: 160-189 mg/dLVery High LDL: greater than or equal to 190 mg/dL HDL Cholesterol 45 >40 mg/dL [facility] Comment:Desirable HDL: great er than 40 mg/dL Note: This HDL assay may give artificially low results in patients with liver disease. Blood Venous blood specimen / Unknown 11/09/2024 8:00 AM EDT 11/09/2024 8:11 AM EDT Malia Hall MD LAB BLOOD ORDERABLES Final Result [facility] [address] [place] [phone] * Mammography (11/26/2021) Mammogram performed Anatomical Region Laterality Modality Other Historical Provider HEALTH MAINTENANCE Final Result * Colonoscopy (10/04/2019) Colonoscopy performed Historical Provider HEALTH MAINTENANCE Edited Result - Final from Last 3 Months or Most Recently Relevant to Health Maintenance Insurance [facility] STANDARD [facility] DUAL COMPLETE DENTAL - [facility] Care Teams Information Technology Consultant Relationship Specialty Start Date End Date Dominick Bran MD [address] [place] [phone] PCP - General Family Medicine 10/16/20
--- OUTSIDE RECORDS SUMMARY | 2025-04-25 16:42 | XMS_ITS | Encounter Summary ---
Author Organization [employer] Address [address] [place] [address] [address] [place] [address] Care Team Providers Care Painter Decorator Name Role Phone Radha Bran MD Primary Care Provider + Reason for Visit * Reason Onset Date Comments Durable Medical Equipment 10/08/2023 Encounter Details Date Type Department Care Team (Late st Contact Info) Description 10/08/2023 Telephone [facility] [address] [place], [place] [phone] Radha Bran MD [address] [place] [address] Durable Medical Equipment Social History Tobacco Use [...] the past 12 months, has t he [employer], gas, oil or water [employer] threatened to shut off services in your [...] if any questions contact Bunny Sow at [phone]. documented in this encounter Plan of Treatment Upcoming Encounters Date Type Department Care Team (Late st Contact Info) Description 06/19/2025 2:00 PM EDT Office Visit [facility] [address] [place] [address] Radha Bran MD [address] [place] [address] 08/08/2025 1:00 PM EST Office Visit [facility] [address] [place] [address] Anel Starr, OD [address] [place] [address] documented as of this encounter Visit Diagnoses Not on filedocumented in this encounter Care Teams Painter Decorator Relationship Specialty Start Date End Date Radha Bran MD [address] [place] [address] PCP - General Family Medicine 10/16/20 documented as of this encounter
--- OUTSIDE RECORDS SUMMARY | 2025-04-25 16:42 | XMS_ITS | Encounter Summary ---
Author Organization [employer] Address [address] [place] [address] [address], [place] [address] Care Team Providers Care Swing Manager Name Role Phone Radha Bran MD Primary Care Provider + Encounter Details Date Type Department Care Team ([facility] Contact Info) Description 02/09/2023 [facility] Health Information Management [address] [place] [address] Radha Bran MD [address] [place] [address] Social History Tobacco Use Types Packs/Day Years [...] Upcoming Encounters Date Type Department Care Team ([facility] Contact Info) Description 06/19/2025 2:00 PM EDT Office Visit [facility] [address] [place] [address] Radha Bran MD [address] [place] [address] 08/08/2025 1:00 PM EST Office Visit [facility] [address] [place], [place] [phone] Anel Starr, OD [address] [place], [place] [phone] documented as of this encounter Visit Diagnoses Not on filedocumented in this encounter Care Teams Swing Manager Relationship Specialty Start Date End Date Radha Bran MD [address] [place], [place] [phone] PCP - General Family Medicine 10/16/20 documented as of this encounter
--- OUTSIDE RECORDS SUMMARY | 2025-04-25 16:42 | XMS_ITS | Encounter Summary ---
Author Organization [id number] Address [address] [place] [address] [address] [address] Care Team Providers Care Information Clerk Automobile Club Name Role Phone Radha Bran MD Primary Care Provider + Encounter Details Date Type Department Care Team (Late st Contact Info) Description 08/06/2022 Telephone [facility] [address] [place] [phone] Radha Bran MD [address] [place] [phone] Social History Tobacco Use Types Packs/Day Years [...] Description 06/19/2025 2:00 PM EDT Office Visit [facility] [address] [place] [phone] Radha Bran MD [address] [place] [phone] 08/08/2025 1:00 PM EST Office Visit [facility] [address] [place] [phone] Anel Starr, OD [address] [place] [address] documented as of this encounter Visit Diagnoses Not on filedocumented in this encounter Care Teams Information Clerk Automobile Club Relationship Specialty Start Date End Date Radha Bran MD [address] [place] [phone] PCP - General Family Medicine 10/16/20 documented as of this encounter
--- OUTSIDE RECORDS SUMMARY | 2025-04-25 16:42 | XMS_ITS | Clinical Summary ---
Author Organization [facility] Address [address] [place] [address] [place] [phone] Phone Care Team Providers Care Development Lead Name Role Phone Paul Farr NP, Jeanne [...] [place] [id number] [facility] MEDICARE REPLACEMENT [facility] MEDICARE [facility]PLACEMENT [facility] MEDICARE REPLACEMENT [facility] MEDICARE REPLACEMENT [facility] MEDICARE REPLACEMENT [facility] MEDICARE REPLACEMENT [facility] MEDICARE REPLACEMENT [facility] MEDICARE REPLACEMENT Care Teams Development Lead Relationship Specialty Start Date End Date Lalita Miller NP PCP - General 11/03/18 Additional Source Comments The information contained in this document represents components of the legal health record. It is not the complete legal health record.[facility]
[2025-04-25 16:45] VITALS: BP 144/83; PULSE 71; RESP 20; TEMP 36.2; O2SAT 99
[2025-04-25 19:10] VITALS: BP 162/63; PULSE 69; RESP 18; TEMP 37.1; O2SAT 98
[2025-04-25 20:44] LABS: D Dimer High Sensitivity 1080 NG/ML
[2025-04-25] MEDS: iohexoL 350 MG/ML 100 ML INFUS..BTL 75 ML IV (22:06)
[2025-04-25 22:10] VITALS: BP 168/55; PULSE 78; RESP 18; TEMP 37.1; O2SAT 95
[2025-04-26] MEDS: Lidocaine HCl Viscous 2 % 15 ML SOLUTION PO (00:19)
[2025-04-26] MEDS: Magnesium Hydrox/Alum Hydrox 30 ML ORAL.SUSP PO (00:20)
[2025-04-26 00:32] VITALS: BP 168/55; PULSE 78; RESP 18; TEMP 37.1; O2SAT 95
== END 2025-04-26 00:33 | disposition home or self-care (01) ==
PROVIDERS: Physician Assistant; Emergency Provider Emergency Medicine; PCP Internal Medicine
DX: R07.9 Chest pain, unspecified (principal); E11.9 Type 2 diabetes mellitus without complications; J45.909 Unspecified asthma, uncomplicated; K21.9 Gastro-esophageal reflux disease without esophagitis; G47.33 Obstructive sleep apnea (adult) (pediatric); E66.01 Morbid (severe) obesity due to excess calories; I10 Essential (primary) hypertension; E55.9 Vitamin D deficiency, unspecified; E78.5 Hyperlipidemia, unspecified; F17.210 Nicotine dependence, cigarettes, uncomplicated; Z79.4 Long term (current) use of insulin
CPT/HCPCS: 36415; 71045; 71275; 80053; 83880; 84484; 85025; 85379; 85610; 85730; 87637; 93005; 94640; 99285; Q9967

== ENCOUNTER → 2025-04-25 13:36 | Outpatient (BNV) | payer OTHER, SELFPAY | PROVIDERS: Emergency Provider Emergency Medicine; PCP Internal Medicine; Visit Provider Internal Medicine | DX: I49.1 Atrial premature depolarization (principal) | CPT/HCPCS: 93010 ==

== ENCOUNTER → 2025-04-25 13:48 | Outpatient (BNV) | payer OTHER, SELFPAY | PROVIDERS: PCP Internal Medicine; Visit Provider Radiology Diagnostic Radiology | DX: R07.9 Chest pain, unspecified (principal); M47.814 Spondylosis without myelopathy or radiculopathy, thoracic region; E66.9 Obesity, unspecified | CPT/HCPCS: 71045 ==

== ENCOUNTER 2025-05-12 13:35 | Outpatient (AMB) | payer OTHER, SELFPAY ==
--- NOTE | 2025-05-12 14:06 | HO.NEPHOV ---
Vital Signs 05/12/25 14:08 Height 5 ft 2 in Weight 225 lb 4 oz BMI 41.2 BP 110/60 Blood Pressure Location Lt brachial Position Sitting Pulse 80 Pulse Source Pulse Oximeter Pulse Oximetry (%) 94 Oxygen Delivery Method Room Air Intake Visit Reasons: 6 MO FU-Conf Director Information Security Required: Yes Director Information Security Language: Rail Manager Name: Triny [phone] Information Interpreted: clinical only Accompanied by: Spouse Allergies seasonal Allergy (Intermediate, Uncoded 04/25/25 13:43) cough HPI Comments Details: Halley was seen in follow up for hypertension on a backdrop of history of proteinuria. She has diabetes mellitus. She denies retinopathy. She is taking angiotensin receptor max. She avoids excessive nonsteroidal anti-inflammatories. Her renal functions are normal. She does not have any chest pain, shortness of breath, paroxysmal nocturnal dyspnea, orthopnea, pedal edema, orthostatic symptoms, epistaxis, photosensitivity, skin rashes, orthostatic symptoms, sensorineural deafness, microscopic hematuria, new bone or back pain. She claims to be compliant with her medications and is closely followed up by her PCP. There were no new active complaints at the time of this office visit. [facility] Medical History Type 2 diabetes mellitus Panic attack Anxiety Obesity due to excess calories Asthma REY (obstructive sleep apnea) Morbid obesity Vitamin D deficiency Obesity Dyslipidemia Hypertension Diabetic polyneuropathy associated with type 2 diabetes mellitus Diabetes type 2, uncontrolled Surgical History Abdominal pain History of carpal tunnel release S/P trigger finger release H/O foot surgery History of dilatation and curettage History of sleeve gastrectomy History of esophagogastroduodenoscopy (EGD) History of eyelid surgery Hx of tubal ligation Hx of colonoscopy Family History Father Type II diabetes mellitus Obesity Mother HTN (hypertension) Brother Cancer Social History Household Members: Spouse Housing: Apartment Do you presently have visiting nurse or other home services: Yes Alcohol intake: never Patient Tobacco Use Status: Former Tobacco user Tobacco use type: Cigarette e-Cigarette/Vaping Use: Never Used service: No Current occupational status: unemployed Current occupation: rt handed Review of Systems Const All systems reviewed & are unremarkable except as noted in HPI and below Physical Exam Vital Signs: Last Vital Signs Pulse 80 05/12/25 14:08 BP 110/60 05/12/25 14:08 Pulse Ox 94 05/12/25 14:08 Oxygen Delivery Method Room Air 05/12/25 14:08 BMI result Body Mass Index 41.2 Const General: comfortable and no acute distress Orientation/consciousness: patient oriented x3 HEENT Head: Yes normocephalic Mouth: Normal oral and palatal mucosa present Eyes EOM: EOMs intact bilaterally Neck Neck: Yes supple Resp Auscultation: clear to auscultation bilaterally Cardio Jugular venous distension: no JVD Rate: regular rate GI Palpation (GI): Soft to palpation Auscultation: normal bowel sounds General: Yes no CVA tenderness Back/Spine/Pelvis Back: no CVA tenderness Skin General skin exam: no rashes or lesions noted Neuro General: patient oriented x3 and moves all extremities Extrem General: Yes no pedal edema Results Reviewed Nephrology Results: Hgb, (12.0-16.0) 13.5 g/dl 04/25/25 WBC, (4.8-10.8) 8.2 X10*3/uL 04/25/25 Plt Count, (160-400) 205 X10*3/uL 04/25/25 Sodium, (135-145) 140 mmol/L 04/25/25 Potassium, (3.3-5.1) 4.0 mmol/L 04/25/25 Chloride, (96-108) 108 mmol/L 04/25/25 Carbon Dioxide, (22-29) 25 mmol/L 04/25/25 BUN, (9-16) 16 mg/dL 04/25/25 Creatinine, (0.5-1.4) 0.63 mg/dL 04/25/25 Calcium, (8.4-10.2) 9.2 mg/dL 04/25/25 Assessment & Plan Assessment & Plan (1) Hypertension: Code(s): I10 - Essential (primary) hypertension Category: Medical Qualifiers: Hypertension type: essential hypertension Qualified Code(s): I10 - Essential (primary) hypertension (2) Diabetic nephropathy: Code(s): E11.21 - Type 2 diabetes mellitus with diabetic nephropathy Category: Medical Qualifiers: Diabetes mellitus type: type 2 Qualified Code(s): E11.21 - Type 2 diabetes mellitus with diabetic nephropathy (3) Angiomyolipoma of kidney: Code(s): D17.71 - Benign lipomatous neoplasm of kidney Category: Medical Plan She has 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 She is on Avapro which should help her with hypertension, proteinuria and provide her renal protection being a diabetic. Her renal functions are normal. His serum potassium is at baseline. She has angiomyolipoma of the kidney for which I plan to do a surveillance ultrasound with time and will refer to intervention Radiology based on evolving data for embolization. Her blood pressure needs to be kept at goal. She is on statins. Given she is type 2 diabetic, she is a great candidate for SGLT2 inhibitor. She should avoid nonsteroidal anti-inflammatories and maintain good hydration along with keeping her blood sugar at goal. She is on Vitamin D replacement. All these have been discussed in detail. Answered all questions. Follow-up appointment given. Orders: Orders Electrolytes 7 Months E11.21 - Type 2 diabetes mellitus with diabetic nephropathy, I10 - Essential (primary) hypertension Creatinine 7 Months E11.21 - Type 2 diabetes mellitus with diabetic nephropathy, I10 - Essential (primary) hypertension Protein Creatinine Ratio, Ur 7 Months E11.21 - Type 2 diabetes mellitus with diabetic nephropathy, I10 - Essential (primary) hypertension Blood Urea Nitrogen 7 Months E11.21 - Type 2 diabetes mellitus with diabetic nephropathy, I10 - Essential (primary) hypertension Coding Level of Care Code Est Pt Level 4 (67917) Diagnoses Essential hypertension I10 Hypertension type: essential hypertension Diabetic nephropathy associated with type 2 diabetes mellitus E11. Diabetes mellitus type: type 2 Angiomyolipoma of kidney D17.71
[2025-05-12 14:08] VITALS: BP 110/60; PULSE 80; O2SAT 94; BMI 41.2
--- OUTSIDE RECORDS SUMMARY | 2025-05-12 16:26 | XMS_ITS | Clinical Summary ---
Author Organization [facility] Address [address] [place] [address] [place] [phone] Phone Care Team Providers Care Wrapping Machine Tender Name Role Phone Paul Farr NP, Jeanne [...] [place] [phone] [facility] MEDICARE REPLACEMENT [facility] MEDICARE [facility]PLACEMENT [facility] MEDICARE REPLACEMENT [facility] MEDICARE REPLACEMENT [facility] MEDICARE REPLACEMENT [facility] MEDICARE REPLACEMENT [facility] MEDICARE REPLACEMENT [facility] MEDICARE REPLACEMENT Care Teams Wrapping Machine Tender Relationship Specialty Start Date End Date Lalita Miller NP PCP - General 11/03/18 Additional Source Comments The information contained in this document represents components of the legal health record. It is not the complete legal health record.[facility]
--- OUTSIDE RECORDS SUMMARY | 2025-05-12 16:26 | XMS_ITS | Encounter Summary ---
Author Organization [facility] Address [address] [place] [address] Phone Care Team Providers Care Event Promoter Name Role Phone Paul Farr NP, Lalita Primary Care Provider Olga jacinto Reason for Referral * MRI/CAT Scan - Closed Specialty Diagnoses / Procedures Referred By Nan jara Referred To Contact Radiology Diagnoses Hypertension, unspecified type Procedures NC Myocardial Perfusion Stress Single NC Myocardial Perfusion Exercise Multiple System, Provider Not In, [facility] [address] [address] Referral ID Status Reason Start Date Expiration Date Visits Re quested Visits Authorized [id number] Closed 10/13/2018 12/11/2018 1 1 Encounter Details Date Type Department Care Team (Latest Contact Info) Description 11/26/2018 Ancillary Orders [facility] [address] [place] [address] [address]rd Floor, [address] [place] [address] System, Provider Not In, [facility] [address] [address] Hypertension, unspecified type Social History Tobacco Use [...] in SPECT format, reconstructed tomographically and compared [id number] in short axis, horizontal long axis and [...] type documented in this encounter Care Teams Event Promoter Relationship Specialty Start Date End Date Lalita Miller NP PCP - General 11/03/18 documented as of this encounter Additional Source Comments The information contained in this document represents components of the legal health record. It is not the complete legal health record.[facility]
== END 2025-05-12 14:19 | disposition home or self-care (01) ==
LOC: HO.HKA 13:36
PROVIDERS: PCP Internal Medicine; Visit Provider Internal Medicine Nephrology
DX: I10 Essential (primary) hypertension (principal); E11.21 Type 2 diabetes mellitus with diabetic nephropathy; D17.71 Benign lipomatous neoplasm of kidney
CPT/HCPCS: 99214

== ENCOUNTER → 2025-05-12 13:35 | Outpatient (BNVA) | payer OTHER, SELFPAY | PROVIDERS: PCP Internal Medicine; Visit Provider Internal Medicine Nephrology | DX: E11.21 Type 2 diabetes mellitus with diabetic nephropathy (principal); I10 Essential (primary) hypertension; D17.71 Benign lipomatous neoplasm of kidney | CPT/HCPCS: 99212 ==

== ENCOUNTER 2025-05-15 13:33 | Outpatient (AMB) | payer OTHER, SELFPAY ==
--- NOTE | 2025-05-15 14:08 | A.OFFVIS_ITS ---
Intake Intake Visit Reasons: Type 2 DM Treasury Management Sales Consultant Required: Yes Treasury Management Sales Consultant Language: Submarine Cable Equipment Technician Name: Ollie [facility] slate cutter Accompanied by: Spouse Allergies seasonal Allergy (Intermediate, Uncoded 04/25/25 13:43) cough HPI Comprehensive Diabetes Asmnt Most Recent Diabetes Results: 2 Hemoglobin A1c 7.1 % 07/11/19 Microalb/Creat Ratio, (<30) 45.1 ug/mg cr H 10/20/23 Cholesterol, (<200) 126 mg/dL 11/09/24 HDL Cholesterol, (>40) 45 mg/dL 11/09/24 Triglycerides, (<150) 98 mg/dL 11/09/24 Creatinine, (0.5-1.4) 0.63 mg/dL 04/25/25 BUN, (9-16) 16 mg/dL 04/25/25 Sodium, (135-145) 140 mmol/L 04/25/25 Potassium, (3.3-5.1) 4.0 mmol/L 04/25/25 Chloride, (96-108) 108 mmol/L 04/25/25 Carbon Dioxide, (22-29) 25 mmol/L 04/25/25 Calcium, (8.4-10.2) 9.2 mg/dL 04/25/25 AST, (5-31) 26 U/L 04/25/25 ALT, (0-31) 22 U/L 04/25/25 Total Protein, (6.5-8.0) 7.1 g/dL 04/25/25 Albumin, (3.5-5.0) 3.9 g/dL 04/25/25 [facility] Medical History Type 2 diabetes mellitus Panic attack Anxiety Obesity due to excess calories Asthma REY (obstructive sleep apnea) Morbid obesity Vitamin D deficiency Obesity Dyslipidemia Hypertension Diabetic polyneuropathy associated with type 2 diabetes mellitus Diabetes type 2, uncontrolled Surgical History Abdominal pain History of carpal tunnel release S/P trigger finger release H/O foot surgery History of dilatation and curettage History of sleeve gastrectomy History of esophagogastroduodenoscopy (EGD) History of eyelid surgery Hx of tubal ligation Hx of colonoscopy Family History Father Type II diabetes mellitus Obesity Mother HTN (hypertension) Brother Cancer Social History Household Members: Spouse Housing: Apartment Do you presently have visiting nurse or other home services: Yes Alcohol intake: never Patient Tobacco Use Status: Former Tobacco user Tobacco use type: Cigarette e-Cigarette/Vaping Use: Never Used service: No Current occupational status: unemployed Current occupation: rt handed Assessment & Plan Assessment & Plan (1) Type 2 diabetes mellitus: Code(s): E11.9 - Type 2 diabetes mellitus without complications Plan: Personal Continuous Glucose Monitor: Patients CGM information reviewed, Pt uses MiniVax with reader Patient reports she is not taking Lantus in the past 2 nights, average glucose on CGM report is 119 with episodes of overnight hypoglycemia. Instructed Pt to hold Lantus until you speak to diabetes education nurse or see Dr. Mohamud on 05/24/25 Take Humalog 10 units with large meals. Take Humalog 5 units with small meals Reviewed with patient treat hypoglycemia with rule of 15s, Hypoglycemia or blood glucose under 70 use the rule of 15's: If you have your blood glucose meter test your blood glucose, if you do not have your meter still follow below instruction: Keep quick-sugar foods with you at all times.? Take 15 grams of fast acting carbohydrates. Examples are 4 ounces of fruit juice or regular soda pop, 8 ounces fat-free milk, 1 tablespoon of table sugar, honey or corn syrup, jam, one miniature box of raisins, 7-8 gumdrops or Life Savers candy, 4 glucose tablets, and glucose gel.? Retest blood glucose in 15 minutes, if blood glucose is still under 80, repeat rule of 15's. If blood glucose is under 50, take 30 grams of fast acting carbohydrates If you are having hypoglycemia, or insulin reaction, more that a few times a week, call MD or railroad emergency services manager Instructed patient to continue to hold Lantus until she sees Dr. Mohamud 05/24/25, or if VICKI has further instructions Today's visit we also reviewed basic carbohydrates Introduction to Nutrition Importance of healthy diet in managing DM Diet is personalized to individual preference Review patient?s regular diet/food preferences How diet effects glucose Carbohydrates: What is a carbohydrate/Which food/food groups are considered carbohydrates Effect of carbohydrates on blood glucose Portion sizes Basic carb counting (if applicable per nursing assessment) Recommendations: Follow plate method, consistent carbs and read nutritional labels. Educational Materials: The patient was provided with the following written educational materials: Planning Healthy Meals, How to treat hypoglycemia Handout Patient able to insert sensor independently at home without issue.? Portions of this note were created using voice recognition software, please excuse any words or phrases that may have been misinterpreted. Patient Instructions: Suspenda Lantus hasta que hable con el enfermero de educaci?n diab?vinh. Cassel Humalog 10 unidades con comidas copiosas. Cassel Humalog 5 unidades con comidas ligeras. Coding Level of Care Code Est Pt Level 1 (44217) Diagnoses Type 2 diabetes mellitus E11.9
--- OUTSIDE RECORDS SUMMARY | 2025-05-15 18:48 | XMS_ITS | Clinical Summary ---
Author Organization [employer] Address [address] [place] [address] 7[address] [place] [address] Care Team Providers Care Web Site Administrator Name Role Phone Dominick Bran MD Primary [...] Active Blood Pressure Monitoring (Blood Pressure Cuff) [facility] [place] test kit-large cuff USE DIRECTED [...] morning. 30 tablet 11 12/04/19 24 Active Additional Information Patient not taking.Reported on 02/21/2025 BD Pen Needle Nora 2nd Gen 32G X 4 MM misc Use as instructed 100 each 05/04/20 Active acetaminophen (Tylenol 8 Hour) 650 MG ER tablet Take 1 tablet (650 mg) by mouth every 8 (eight) hours if needed for mild pain. Do not crush, chew, or split. 30 tablet 01/21/20 25 Active escitalopram (Lexapro) 20 MG tablet TAKE 1 TABLET(20 MG) BY MOUTH EVERY DAY 30 tablet 04/26/20 25 Active gabapentin (Neurontin) 100 MG capsuleIndicat ions:Type I or II open displaced comminuted fracture of shaft of left tibia with routine healing, subsequent encounter TAKE 1 CAPSULE(100 MG) BY MOUTH EVERY 12 HOURS 60 capsule 3 05/02/20 Active Polyvinyl Alcohol-Povido ne 5-6 MG/ML solution Administer 2 drops into affected eye(s) 4 times daily. 15 mL 3 05/04/20 24 2024 Additional Information Patient not taking.Reported on 02/21/2025 gabapentin (Neurontin) 100 MG capsuleIndicat ions:Type I or II open displaced comminuted fracture of shaft of left tibia with routine healing, subsequent encounter TAKE 1 CAPSULE(100 MG) BY MOUTH EVERY 12 HOURS 60 capsule 3 12/01/19 25 2024 Discontinued escitalopram (Lexapro) 20 MG tablet TAKE 1 TABLET(20 MG) BY MOUTH EVERY DAY 30 tablet 03/27/20 25 2024 Discontinued Active Problems Problem Noted [...] order patient will be contacted with results Ny corporis 05/04/2024 Assessment & Plan (05/04/2024 12:37 [...] daily 1 more week. Will refer to [facility] for assistance to move to a [...] intervention , [facility], Comply with [...] CGM at home - I called IN Laith and she happens to have appt. today [...] better controlled She has an appointment w/ dope pourer in the next 2 wks Continue Humalog + Lantus 24 units + Mounjaro Counseled re more frequent low calorie/carb meals. Check fgstk daily Encouraged physical activity as tolerated. FU w/ dope pourer Assessment & Plan (10/12/2023 2:48 PM EST): [...] units TID AC meals and FU with dope pourer in February, she will fu with me in 12 weeks Assessment & Plan (01/09/2023 11:10 AM EDT): Uncontrolled. Increase Lantus to 30 units per day and no other medication changes, follow up with dope pourer. Assessment & Plan (09/24/2022 10:50 AM EST): Uncontrolled. A1C is worse than last month. Most likely related to acute URI at this time. No change in medications, FU closely with dope pourer. COVID-19 09/24/2022 Assessment & Plan (09/24/2022 10:51 [...] covid test is positive. Lesion of right [place] kidney 09/24/2022 Assessment & Plan (09/24/2022 10:53 [...] Plan (01/09/2023 11:08 AM EDT): Refer to [facility] /care mangement to assist with moving to [...] Vit D weekly was picked up on 2/21/24, will FU at next appointment w/ pt to see if she's taking it, she will bring all her medications Essential hypertension 09/10/2015 Assessment & Plan (03/14/2024 6:07 PM EDT): Uncontrolled, she needs to bring meds at next appt, unclear re compliance with meds as she seems to be overdue for Avapro shredder picker. Continue Avapro 75mg and fu with [...] Encounters Date Type Department Care Team Description 04/30/2025 Refill [facility] MEDICINE [address] [place] [address] Dominick Bran MD Type I or II open displaced comminuted fracture of shaft of left tibia with routine healing, subsequent encounter 04/25/2025 Orders Only GENERIC EXTERNAL DATA DEPARTMENT Provider, Generic External Data 04/25/[address] [place] [address] Dominick Bran MD 04/17/2025 Orders Only GENERIC EXTERNAL DATA DEPARTMENT Provider, Generic External Data 04/06/2025 11:00 AM EDT Office Visit [facility] ADULT DENTAL [address] [place] [address] Thomas-Miller, Marisel, DDS Full coverage crown needed for root canal-treated tooth (Primary Dx) 04/03/[address] [place] [address] Dominick Bran MD No Show 03/31/[address] [address] Dominick Bran MD CHART PREP 03/29/2025 11:00 AM EDT Office Visit [facility] ADULT DENTAL [address] [place] [address] Thomas-Miller, Marisel, DDS 03/28/2025 9:00 AM EDT Office Visit [facility] ADULT DENTAL [address] [place] [address] Thomas-Miller, Marisel, DDS Dental caries (Primary Dx); Full coverage crown needed for root canal-treated tooth 03/28/2025 Telephone [facility] ADULT DENTAL [address] [place] [address] Thomas-Miller, Marisel, DDS 03/26/[address] [place] [address] Dominick Bran MD 03/15/[address] [address] Dominick Bran MD No Show 03/14/[address] [address] Dominick Bran MD Chart Prep 02/27/2025 Refill [facility] [address] [place] [address] RogersvilleJaja ortiz, CHIP LOFT WORKER 02/21/2025 9:00 AM EDT Office Visit [facility] ADULT DENTAL [address] [place] [address] Marisel Andujar DDS Dental caries (Primary Dx) 02/16/2025 Orders Only GENERIC EXTERNAL DATA DEPARTMENT Provider, Generic External Data from Last 3 Months Immunizations Immunization Administration [...] t he electric, gas, oil or water [employer] threatened to shut off services in your [...] 2:00 PM EDT Office Visit [facility] [address] [place] [address] Dominick Bran MD [address] [place] [address] 08/08/2025 1:00 PM EST Office Visit [facility] OPTOMETRY [address] [place] [address] Anel Starr, OD [address] [place] [address] Health Maintenance Due Date Last Done Comments [...] history exists Depression Monitoring 04/26/2024 10/27/2023, 024 Colonoscopy 10/04/2024 10/04/2019 Colorectal Cancer Screening 10/04/2024 SDOH Screening 10/12/2024 10/12/2023 Diabetes: Foot Exam 03/14/2025 03/14/2024, 03/14/2024, 03/14/2024, Additional history exists COVID-19 Vaccine ( season) 2025 10/12/2023, 07/14/2022, 12/23/2021, Additional history exists Influenza Vaccine (#1) 2025 [...] Procedure Name Priority Date/Time Associated Diagnosis Comments CTA CHEST PE PROTOCAL Routine 04/25/2025 11:25 PM EDT HIGH SENSITIVITY TROPONIN I Routine 04/25/2025 3:47 PM EDT D DIMER HIGH SENSITIVITY Routine 04/25/2025 2:09 PM EDT HIGH SENSITIVITY TROPONIN I Routine [...] WHOLE BLOOD Routine 02/16/2025 1:37 PM EDT HEMOGLOBIN A1C Routine 02/01/2025 HEPATITIS C AB W/REFL TO HCV RNA, QN, PCR Routine 11/09/2024 8:00 AM EDT Chronic fatigue LIPID PANEL, STANDARD Routine 11/09/2024 8:00 AM EDT Chronic fatigue MAMMOGRAPHY Routine 11/26/2021 COLONOSCOPY Routine 10/04/2019 from Last 3 Months or Most Recently Relevant to Health Maintenance Results * CTA Chest PE Protocal (04/25/2025 11:25 PM EDT) Anatomical Region Laterality Modality Body, Chest Computed Tomogra phy 04/25/2025 11:2 5 PM EDT Narrative 04/25/2025 11:27 PM EDT [place] [address] CT Scan Report Signed Patient: Halley Sewell MR#: M [id number] : 1950 Acct:[id number] Age/Sex: 75 / F ADM Date: 04/25/25 Loc: .ED Attending Dr: Ordering Physician: Wei Forte PA-C Date of Service: 04/25/25 Procedure(s): CT angio chest PE protocol Accession Number(s): [id number] cc: Dominick Bran MD; Wei Forte PA-C Report Number: [id number]: Total DLP = 529.00 mGy-cm CLINICAL HISTORY: Pleuritic Chest Pain; Positive D-Dimer CT angiography chest with contrast. 3D Postprocessing. Comparison: Chest x-ray on 04/25/2025, chest CT 12/04/2022 Findings: Patchy bilateral mid to lower lung predominant ground-glass densities. No dense focal airspace consolidation. No pleural effusion. No pneumothorax. Central airways are patent. Normal heart size. No pericardial effusion. Mild multivessel coronary artery calcifications. Scattered hilar and mediastinal lymph nodes with some appearing mildly enlarged. Unremarkable esophagus. Small hiatal hernia. Calcified but nonaneurysmal thoracic aorta. Normal caliber central pulmonary arteries. No findings to suggest acute pulmonary embolism. No acute findings within visualized lower neck. Stable appearance of simple appearing splenic cyst. No acute osseous abnormality. No lytic or sclerotic osseous lesions. Impression: 1. No evidence of acute pulmonary embolism. 2. Bilateral mid to lower lung predominant ground-glass parenchymal densities differential diagnostic considerations include edema versus pneumonitis. 3. Additional chronic/nonacute findings as above. This document has been electronically signed by: Judith Perez MD on 04/25/2025 23:25:12 Dictated By: Judith Perez MD Signed By: <Electronically signed by Judith Perez MD in OV> 04/25/252325 DD/ 24 TD/TT: 04/25/252324 Media Supervisor: Procedure Note Donotuseinterpreter, Image - 04/25/[address] [place] [address] [address] Scan Report Signed Patient: Kyrie Sewell#: M [id number] : 1950cct:[id number] Age/Sex: 75 / FADM Date: 04/25/25 Loc: HO.ED Attending Dr: Ordering Physician: Wei Forte PA-C Date of Service: 04/25/25 Procedure(s): CT angio chest PE protocol Accession Number(s): [id number] cc: Dominick Bran MD; Wei Forte PA-C Report Number: [id number]: Total DLP = 529.00 mGy-cm CLINICAL HISTORY: Pleuritic Chest Pain; Positive D-Dimer CT angiography chest with contrast. 3D Postprocessing. Comparison: Chest x-ray on 04/25/2025, chest CT 12/04/2022 Findings: Patchy bilateral mid to lower lung predominant ground-glass densities. No dense focal airspace consolidation. No pleural effusion. No pneumothorax. Central airways are patent. Normal heart size. No pericardial effusion. Mild multivessel coronary artery calcifications. Scattered hilar and mediastinal lymph nodes with some appearing mildly enlarged. Unremarkable esophagus. Small hiatal hernia. Calcified but nonaneurysmal thoracic aorta. Normal caliber central pulmonary arteries. No findings to suggest acute pulmonary embolism. No acute findings within visualized lower neck. Stable appearance of simple appearing splenic cyst. No acute osseous abnormality. No lytic or sclerotic osseous lesions. Impression: 1. No evidence of acute pulmonary embolism. 2. Bilateral mid to lower lung predominant ground-glass parenchymal densities differential diagnostic considerations include edema versus pneumonitis. 3. Additional chronic/nonacute findings as above. This document has been electronically signed by: Judith Perez MD on 04/25/2025 23:25:12 Dictated By: Judith Perez MD Signed By: <Electronically signed by Judith Perez MD in OV> 04/25/252325 DD/ 24 TD/TT: 04/25/252324 Media Supervisor: [facility] External Provider IMG CT PROCEDURES Final Result * High Sensitivity Troponin I (04/25/2025 3:47 PM EDT) Only the most recent of2 resultswithin the time period is included. TROPONIN I HIGH SENSITIVITY <2.7 <3.5 - 17.0 ng/L [facility] Comment:The Iraheta high sens itivity Troponin-I results should beused in conjunction with other diagnostic information suchas ECG, clinical observations and information, and patientsymptoms to aid in the diagnosis of HI. 04/25/2025 3:47 PM EDT 04/25/2025 3:49 PM EDT Generic External Data Provider LAB BLOOD ORDERAB LES Final Result [facility] [address] [place] [phone] * D Dimer High Sensitivity (04/25/2025 2:09 PM EDT) D Dimer High Sensitivity 1,080 NG/ML [facility] Comment:D-DIMER HS REFERENCE RANGENote: Our assay reports D-Dimer Units (D- DU).The cut-off value for venous thromboembolic (VTE) disease is230 ng/mL. This value has a very high negative predictivevalue when the patient has a low to moderate clinicalprobability of VTE.The upper limit of normal is 243 ng/mL. 04/25/2025 2:09 PM EDT 04/25/2025 2:10 PM EDT us Generic External Data Provider LAB BLOOD ORDERAB LES Final Result [facility] [address] [place] [address] [phone] * SARS-CoV-2 RNA, Influenza A/B, and RSV RNA, Ql NAAT (04/25/2025 2:09 PM EDT) Pathologist [facility] Influenza A PCR NEGATIVE Negative [facility] Influenza B PCR NEGATIVE Negative [facility] Resp Syncy Virus RNA Qual PCR NEGATIVE Negative [facility] SARS COV2 PCR NEGATIVE Negative [facility] Comment:All test results mus t be [...] use by authorized laboratories.Testing performed on the Clustrix GeneXpert utilizingreal-time RT-PCR.All SARS CoV2 and positive influenza A/B results arereported to [facility]. 04/25/2025 2:09 PM EDT 04/25/2025 2:10 PM EDT us Generic External Data Provider LAB MICROBIOLOGY - GENERAL ORDERABLES Final Result [facility] [address] [place] [address] [phone] * CBC auto differential (04/25/2025 2:09 PM EDT) White Blood Count 8.2 4.8 - 10.8 X10*3/uL [facility] Red Blood Count 4.75 4.20 - 5.50 X10*6/uL [facility] Hemoglobin 13.5 12.0 - 16.0 g/dl [facility] Hematocrit 40.4 37.0 - 47.0 % [facility] Mean Corpuscular Volume 85.1 80.0 - 98.0 fL [facility] Mean Corpuscular Hemoglobin 28.4 27.0 - 33.0 pg [facility] Mean Corpuscular HGB Conc 33.4 31.0 - 35.0 g/dl [facility] Red Cell Distribution Width 13.5 11.0 - 16.0 % [facility] Platelet Count 205 160 - 400 X10*3/uL [facility] Mean Platelet Volume 11.7 9.4 - 12.3 fL [facility] Neutrophils Percent Auto 65.0 45 - 73 % [facility] Imm Gran Pct Auto 0.2 0.0 - 0.4 % [facility] Lymphocytes Percent Auto 26.8 20 - 40 % [facility] Monocytes Percent Auto 6.4 2 - 11 % [facility] Eosinophils Percent Auto 1.2 0 - 4 % [facility] Basophils Percent Auto 0.4 0 - 2 % [facility] NRBC Pct Auto 0.0 0.0 - 0.2 /100WBC [facility] Neutrophils Absolute Auto 5.4 2.0 - 8.3 x10*3/uL [facility] Imm Gran Abs Auto 0.02 0.00 - 0.03 X10*3/uL [facility] Lymphocytes Absolute Auto 2.2 1.2 - 4.9 X10*3/uL [facility] Monocytes Absolute Auto 0.5 0.1 - 1.2 X10*3/uL [facility] Eosinophils Absolute Auto 0.1 0.0 - 0.4 X10*3/uL [facility] Basophils Absolute Auto 0.0 0.0 - 0.2 X10*3/uL [facility] NRBC Abs Auto 0.000 0.0 - 0.012 X10*3/uL [facility] 04/25/2025 2:09 PM EDT 04/25/2025 2:10 PM EDT Generic External Data Provider LAB BLOOD ORDERAB LES Final Result Performing Organization Address [facility] [place]/[facility]/ZIP Co de Phone Number [facility] [address] [place] [phone] * (ABNORMAL) Partial Thromboplastin Time, Activated (APTT) (04/25/2025 2:09 PM EDT) Partial Thromboplastin Time 20.5(L) 26.7 - 34.1 SEC [facility] 04/25/2025 2:09 PM EDT 04/25/2025 2:10 PM EDT us Generic External Data Provider LAB BLOOD ORDERAB LES Final Result Performing Organization Address [facility] [place]/[facility]/ZIP Co de Phone Number [facility] [address] [place] [phone] * Prothrombin Time-INR (04/25/2025 2:09 PM EDT) Prothrombin Time 12.1 10.9 - 12.4 SEC [facility] INTERNATIONAL NORM RATIO 1.1 0.9 - 1.1 [facility] Comment:INTERNATIONAL NORMAL IZED RATIO (INR) REFERENCE [...] ORDERAB LES Final Result Performing Organization Address City/[facility]/ZIP Co de Phone Number [facility] [address] [place] [phone] * B Type Natriuretic Peptide (BNP) (04/25/2025 2:09 PM EDT) [facility] B Type Natriuretic Peptide 27 <100 pg/mL [facility] 04/25/2025 2:09 PM EDT 04/25/2025 2:10 PM EDT [email or web address] External Data Provider LAB BLOOD ORDERAB LES Final Result Performing Organization Address [facility] [place] Co de Phone Number [facility] [address] [place] [phone] * (ABNORMAL) Comprehensive Metabolic Panel (04/25/2025 2:09 PM EDT) [facility] Sodium 140 135 - 145 mmol/L [facility] Potassium 4.0 3.3 - 5.1 mmol/L [facility] Chloride 108 96 - 108 mmol/L [facility] Carbon Dioxide 25 22 - 29 mmol/L [facility] Anion Gap 11(L) 12 - 20 [facility] Urea Nitrogen (BUN) 16 9 - 16 mg/dL [facility] Creatinine, Serum 0.63 0.5 - 1.4 mg/dL [facility] Creatinine Clr Calc Pharmacy 88.7 [facility] Comment:Provided height and weight: 157.48 cm,101.7 kg.eGFR (calculated from the MDRD study equation) and eCrCl(calculated from the Cockcroft-Gault equation) are based ondifferent parameters and may not yield comparable results.If eCrCl result is absurd, please check patient'sheight/weight. Estimated Glomerular Filt Rate >60 [facility] Comment:Chronic Kidney Disea se: Estimated GFR < 60 mL/min/1.09t0Hrvuaz Kidney Disease: Estimated GFR < 15 mL/min/1.73m2 Glucose 99 60 - 115 mg/dL [facility] Calcium 9.2 8.4 - 10.2 mg/dL [facility] Bilirubin, Total 0.4 0.0 - 1.0 mg/dL [facility] Aspartate Amino Transferase 26 5 - 31 U/L [facility] Alanine Aminotransferase 22 0 - 31 U/L [facility] Total Protein 7.1 6.5 - 8.0 g/dL [facility] Albumin Level 3.9 3.5 - 5.0 g/dL [facility] Alkaline Phosphatase 61 39 - 117 U/L [facility] 04/25/2025 2:09 PM EDT 04/25/2025 2:10 PM EDT us Generic External Data Provider LAB BLOOD ORDERAB LES Final Result Performing Organization Address City/State/[facility] Co de Phone Number [facility] [address] [place] [phone] * XR Chest 1 View (04/25/2025 1:19 PM EDT) Anatomical Region Laterality Modality Chest Radiographic [place] ging 04/25/2025 1:19 PM EDT Narrative 04/25/2025 2:24 PM EDT [address] [address] XRay Report Signed Patient: Halley Sewell MR#: M [id number] : 1950 Acct:[id number] Age/Sex: 75 / F ADM Date: 04/25/25 Loc: .ED Attending Dr: Ordering Physician: Patric Beckham Date of Service: 04/25/25 Procedure(s): XR chest 1V Accession Number(s): [id number] cc: Patric Beckham; Dominick Bran MD EXAMINATION: [...] 04/25/25 1421 DD/ 1319 TD/TT: 04/25/25 1415 Media Supervisor: Procedure Note Donotuseinterpreter, Image - 04/25/2025 [place] [address] XRay Report Signed Patient: Kyrie Sewell#: M [id number] : 2Acct:[id number] Age/Sex: 75 / FADM Date: 04/25/25 Loc: .ED Attending Dr: Ordering Physician: Patric Beckham Date of Service: 04/25/25 Procedure(s): XR chest 1V Accession Number(s): [id number] cc: Patric Beckham; Dominick Bran MD EXAMINATION: [...] 04/25/25 1421 DD/ 1319 TD/TT: 04/25/25 1415 Media Supervisor: [facility] External Provider IMG XR PROCEDURES Final Result * (ABNORMAL) Glucose, Whole Blood (04/17/2025 1:06 PM EDT) Only the most recent of2 resultswithin the time period is included. Glucose, Whole Blood 124(H) 60 - 115 mg/dL [facility] Comment:METER #: [id number] 0Testing performed in the Endocrinology Department [address] , [address], [facility]. 04/17/2025 1:06 PM EDT 04/17/2025 1:12 PM EDT Generic External Data Provider LAB BLOOD ORDERAB LES Final Result [facility] [address] [place] [phone] * Referral to Rheumatology (02/28/2025) us Malia Hall MD OUTPATIENT REFERRAL O RDERABLES Final Result * (ABNORMAL) HM Hemoglobin A1c (02/01/2025) Hemoglobin A1C 9.1(A) 4.0 - 5.7 % Narrative Charla Martínez - 02/01/2025 See external hospital admission note on 02/01/2025 Historical Provider HEALTH MAINTENANCE Final Result * Hepatitis C Antibody with Reflex to HCV, RNA, Quantitative, Real-Time PCR (11/09/2024 8:00 AM EDT) Hepatitis C Antibody Nonreactive Nonreactive [facility] Comment:Antibodies to HCV no t detected; does not exclude early acuteHCV infection. Blood Venous blood specimen / Unknown 11/09/2024 8:00 AM EDT 11/09/2024 8:11 AM EDT us Malia Hall MD LAB BLOOD ORDERABLES Final Result Performing Organization Address City/[facility] Co de Phone Number [facility] [address] [place] [phone] * Lipid Panel, Standard (11/09/2024 8:00 AM EDT) Triglycerides 98 <150 mg/dL [facility] Comment:Desirable Triglyceri de: less than 150 mg/dLBorderline High Triglyceride 150-199 mg/dLHigh Triglyceride: 200-499 mg/dLVery High Triglyceride: greater than or equal to 5OO mg/dL Cholesterol 126 <200 mg/dL [facility] Comment:Desirable Cholestero l: less than 200 mg/dLBorderline High Cholesterol: 200-239 mg/dLHigh Cholesterol: greater than 239 mg/dL LDL Cholesterol Calculated 62 <100 mg/dL [facility] Comment:Desirable LDL: less than 100 mg/dLNear Optimal/Above Optimal LDL: 110- 129 mg/dLBorderline High LDL: 130-159 mg/dLHigh LDL: 160-189 mg/dLVery High LDL: greater than or equal to 190 mg/dL HDL Cholesterol 45 >40 mg/dL [facility] Comment:Desirable HDL: great er than 40 mg/dL Note: This HDL assay may give artificially low results in patients with liver disease. Blood Venous blood specimen / Unknown 11/09/2024 8:00 AM EDT 11/09/2024 8:11 AM EDT Malia Hall MD LAB BLOOD ORDERABLES Final Result [facility] [address] [place] [phone] * Mammography (11/26/2021) Mammogram performed Anatomical Region Laterality Modality Other Historical Provider HEALTH MAINTENANCE Final Result * Colonoscopy (10/04/2019) Colonoscopy performed Historical Provider HEALTH MAINTENANCE Edited Result - Final from Last 3 Months or Most Recently Relevant to Health Maintenance Insurance [facility] DUAL COMPLETE DENTAL - [facility] Care Teams Web Site Administrator Relationship Specialty Start Date End Date Dominick Bran MD [address] [place] [phone] PCP - General Family Medicine 10/16/20
--- OUTSIDE RECORDS SUMMARY | 2025-05-15 18:48 | XMS_ITS | Encounter Summary ---
Author Organization [employer] Address [address] [place] [address] [address] [place] [address] Care Team Providers Care Adoption Counselor Name Role Phone Radha Bran MD Primary Care Provider + Reason for Visit * Reason Onset Date Comments Letter for School/Work 10/16/2022 Encounter Details Date Type Department Care Team ([facility] st Contact Info) Description 10/16/2022 Telephone [facility] [address] [place] [address] [phone] Radha Bran MD [address] [place], [place] [phone] Letter for School/Work Social History Tobacco Use [...] Description 06/19/2025 2:00 PM EDT Office Visit [facility] [address] [place] [phone] Radha Bran MD [address] [place] [address] 08/08/2025 1:00 PM EST Office Visit [facility] [address] [place], [place] [phone] Anel Starr, OD [address] [place] [address] documented as of this encounter Visit Diagnoses Not on filedocumented in this encounter Care Teams Adoption Counselor Relationship Specialty Start Date End Date Radha Bran MD [address] [place] [address] PCP - General Family Medicine 10/16/20 documented as of this encounter
--- OUTSIDE RECORDS SUMMARY | 2025-05-15 18:48 | XMS_ITS | Encounter Summary ---
Author Organization [employer] Address [address] [place] [address] [address] [address] Care Team Providers Care Padding Machine Operator Name Role Phone Radha Bran MD Primary Care Provider + Encounter Details Date Type Department Care Team (Late st Contact Info) Description 08/06/2022 Telephone [facility] [address] [place] [phone] Radha Bran MD [address] [place] [phone] Social History Tobacco Use Types Packs/Day Years [...] Description 06/19/2025 2:00 PM EDT Office Visit [facility] [address] [place] [address] Radha Bran MD [address] [place] [address] 08/08/2025 1:00 PM EST Office Visit [facility] [address] [place] [address] Anel Starr, OD [address] [place] [address] documented as of this encounter Visit Diagnoses Not on filedocumented in this encounter Care Teams Padding Machine Operator Relationship Specialty Start Date End Date Radha Bran MD [address] [place] [phone] PCP - General Family Medicine 10/16/20 documented as of this encounter
--- OUTSIDE RECORDS SUMMARY | 2025-05-15 18:48 | XMS_ITS | Encounter Summary ---
Author Organization [employer] Address [address] [place] [address] 7t [place] [address] Care Team Providers Care Cdl Dedicated Truck Driver Name Role Phone Radha Bran MD Primary Care Provider + Reason for Visit * Reason Onset Date Comments Appointment 01/20/2025 Encounter Details Date Type Department Care Team (Late st Contact Info) Description 01/20/2025 Telephone [facility] [address] [place], [place] [phone] Raymond Galeas DDS [address] [place] [address] Appointment Social History Tobacco Use Types Packs/Day [...] - 01/20/2025 9:43 AM EDT PT HAS Idea Device WE ACCEPT [facility] UNABLE TO POST COVERAGE FOR EMERGENCY APPT TODAY CS documented in this encounter Plan of Treatment Upcoming Encounters Date Type Department Care Team (Late st Contact Info) Description 06/19/2025 2:00 PM EDT Office Visit [facility] [address] [place] [address] Radha Bran MD [address] [place] [address] 08/08/2025 1:00 PM EST Office Visit [facility] [address] [place] [address] Anel Starr, OD [address] [place] [address] documented as of this encounter Visit Diagnoses Not on filedocumented in this encounter Additional Health Concerns Assessment Noted Time PHQ-9 Depression Total Score: 13 024 10:37 AM EST documented as of this encounter Care Teams Cdl Dedicated Truck Driver Relationship Specialty Start Date End Date Radha Bran MD [address] [place] [address] PCP - General Family Medicine 10/16/20 documented as of this encounter
--- OUTSIDE RECORDS SUMMARY | 2025-05-15 18:48 | XMS_ITS | Encounter Summary ---
Author Organization [employer] Address [address] [place] [address] [address], [place] [address] Care Team Providers Care Mortgage Banker Name Role Phone Radha Bran MD Primary Care Provider + Encounter Details Date Type Department Care Team ([facility] Contact Info) Description 02/09/2023 [facility] [address] [place] [address] Radha Bran MD [address] [place] [address] Social History Tobacco Use Types Packs/Day Years [...] Upcoming Encounters Date Type Department Care Team ([facility] Contact Info) Description 06/19/2025 2:00 PM EDT Office Visit [facility] [address] [place] [address] Radha Bran MD [address] [place] [address] 08/08/2025 1:00 PM EST Office Visit [facility] [address] [place], [place] [phone] Anel Starr, OD [address] [place], [place] [phone] documented as of this encounter Visit Diagnoses Not on filedocumented in this encounter Care Teams Mortgage Banker Relationship Specialty Start Date End Date Radha Bran MD [address] [place], [place] [phone] PCP - General Family Medicine 10/16/20 documented as of this encounter
--- OUTSIDE RECORDS SUMMARY | 2025-05-15 18:48 | XMS_ITS | Encounter Summary ---
Author Organization [employer] Address [address] [facility] 7t [place] [address] Care Team Providers Care Public Safety Teacher Name Role Phone Radha Bran MD Primary Care Provider + Encounter Details Date Type Department Care Team ([facility] st Contact Info) Description 08/25/2024 Orders Only [facility] [address] [place] [address] Radha Bran MD [address] [place] [address] Social History Tobacco Use Types Packs/Day Years [...] Description 06/19/2025 2:00 PM EDT Office Visit [facility] [address] [place] [address] Radha Bran MD [address] [place] [address] 08/08/2025 1:00 PM EST Office Visit [facility] [address] [place] [address] Tarka, Anel, OD [address] [place] [address] documented as of this encounter Visit Diagnoses Not on filedocumented in this encounter Additional Health Concerns Assessment Noted Time PHQ-9 Depression Total Score: 13 024 10:37 AM EST documented as of this encounter Care Teams Public Safety Teacher Relationship Specialty Start Date End Date Radha Bran MD [address] [place] [address] PCP - General Family Medicine 10/16/20 documented as of this encounter
--- OUTSIDE RECORDS SUMMARY | 2025-05-15 18:48 | XMS_ITS | Clinical Summary ---
Author Organization [facility] Address [address] [place] [address] [place] [phone] Phone Care Team Providers Care Quilt Sewer Name Role Phone Paul Farr NP, Jeanne [...] [place] [address] [facility] REPLACEMENT [facility] MEDICARE [facility]PLACEMENT [facility] MEDICARE REPLACEMENT [facility] MEDICARE REPLACEMENT [facility] MEDICARE REPLACEMENT [facility] MEDICARE REPLACEMENT [facility] MEDICARE REPLACEMENT [facility] MEDICARE REPLACEMENT [facility] MEDICARE REPLACEMENT Care Teams Quilt Sewer Relationship Specialty Start Date End Date Lalita Miller NP PCP - General 11/03/18 Additional Source Comments The information contained in this document represents components of the legal health record. It is not the complete legal health record.[facility]
--- OUTSIDE RECORDS SUMMARY | 2025-05-15 18:48 | XMS_ITS | Encounter Summary ---
Author Organization [employer] Address [address] [place] [address] 7t [place] [address] Care Team Providers Care Extermination Supervisor Name Role Phone Radha Bran MD Primary Care Provider + Reason for Visit * Reason Onset Date Comments Durable Medical Equipment 10/08/2023 Encounter Details Date Type Department Care Team (Late st Contact Info) Description 10/08/2023 Telephone [facility] [address] [place], [place] [phone] Radha Bran MD [address] [place] [address] Durable Medical Equipment Social History Tobacco Use [...] the past 12 months, has t he [employer], gas, oil or water [employer] threatened to shut off services in your [...] if any questions contact Bunny Sow at [phone]. documented in this encounter Plan of Treatment Upcoming Encounters Date Type Department Care Team (Late st Contact Info) Description 06/19/2025 2:00 PM EDT Office Visit [facility] [address] [place] [address] Radha Bran MD [address] [place] [address] 08/08/2025 1:00 PM EST Office Visit [facility] OPT[facility]RY [address] [place] [address] Anel Starr, OD [address] [place] [address] documented as of this encounter Visit Diagnoses Not on filedocumented in this encounter Care Teams Extermination Supervisor Relationship Specialty Start Date End Date Radha Bran MD [address] [place] [address] PCP - General Family Medicine 10/16/20 documented as of this encounter
--- OUTSIDE RECORDS SUMMARY | 2025-05-15 18:48 | XMS_ITS | Encounter Summary ---
Author Organization [employer] [facility] Address [address] [place] [address] 7 [place] [address] Care Team Providers Care Geodetic Technician Name Role Phone Radha Bran MD Primary Care Provider + Encounter Details Date Type Department Care Team (Late st Contact Info) Description 07/28/2022 Abstract [facility] MED[facility] [address] [place] [phone] ProviderBritany MD Social History Tobacco Use Types [...] Description 06/19/2025 2:00 PM EDT Office Visit [facility] [address] [place] [address] Radha Bran MD [address] [place] [address] 08/08/2025 1:00 PM EST Office Visit [facility] [address] [place] [address] Anel Starr, OD [address] [place] [address] documented as of this encounter Visit Diagnoses Not on filedocumented in this encounter Care Teams Geodetic Technician Relationship Specialty Start Date End Date Radha Bran MD [address] [place] [address] PCP - General Family Medicine 10/16/20 documented as of this encounter
--- OUTSIDE RECORDS SUMMARY | 2025-05-15 18:48 | XMS_ITS | Encounter Summary ---
Author Organization [facility] Address [address] [place] [address] Phone Care Team Providers Care Telemarketing Agent Name Role Phone Paul Farr NP, Lalita Primary Care Provider Olga jacinto Reason for Referral * MRI/CAT Scan - Closed Specialty Diagnoses / Procedures Referred By Nan jara Referred To Contact Radiology Diagnoses Hypertension, unspecified type Procedures NC Myocardial Perfusion Stress Single NC Myocardial Perfusion Exercise Multiple System, Provider Not In, [facility] [address] [address] Referral ID Status Reason Start Date Expiration Date Visits Re quested Visits Authorized [id number] Closed 10/13/2018 12/11/2018 1 1 Encounter Details Date Type Department Care Team (Latest Contact Info) Description 11/26/2018 Ancillary Orders [facility] [address] [place] [address] 3rd Floor, [address] [place] [address] System, Provider Not In, [facility] [address] [address] Hypertension, unspecified type Social History Tobacco Use [...] in SPECT format, reconstructed tomographically and compared [id number] in short axis, horizontal long axis and [...] type documented in this encounter Care Teams Telemarketing Agent Relationship Specialty Start Date End Date Lalita Miller NP PCP - General 11/03/18 documented as of this encounter Additional Source Comments The information contained in this document represents components of the legal health record. It is not the complete legal health record.[facility]
== END 2025-05-15 14:21 | disposition home or self-care (01) ==
LOC: HO.ENCR 13:33
PROVIDERS: PCP Internal Medicine; Visit Provider Registered Nurse Diabetes Educator
DX: E11.9 Type 2 diabetes mellitus without complications (principal)

== ENCOUNTER → 2025-05-15 13:33 | Outpatient (BNVA) | payer OTHER, SELFPAY | PROVIDERS: PCP Internal Medicine; Visit Provider Registered Nurse Diabetes Educator | CPT/HCPCS: 99211 ==

== ENCOUNTER 2025-05-24 13:43 | Outpatient (AMB) | payer OTHER, SELFPAY ==
--- NOTE | 2025-05-24 14:13 | MHC.OFFVIS ---
Vital Signs 05/24/25 14:16 Height 5 ft 2 in Weight 225 lb 8.526 oz BMI 41.2 BP 110/58 L Blood Pressure Location Lt brachial Position Sitting Pulse 79 Pulse Source Pulse Oximeter Pulse Oximetry (%) 94 Oxygen Delivery Method Room Air Intake Visit Reasons: f/u Type 2 DM Intake Note: Patient present today to follow up on Type 2 Diabetes Mellitus. Patient receives Walter 3 Plus supplies through: [email or web address] Last Diabetic Eye exam: 07/31/2024 Last Podiatry Visit: Does not see a Substance Abuse Counselor Random Glucose: 119 mg/dl HgA1C: 6.4% 05/24/2025 Scheduling Agent Required: Yes Scheduling Agent Language: Machine Chocolate Molder Services: Scheduling Agent Present Scheduling Agent Name: [facility] Radha and Inés Information Interpreted: non-clinical & clinical Accompanied by: Self / Same As Patient Allergies seasonal Allergy (Intermediate, Uncoded 05/24/25 14:16) cough Medication List - Last Reconciled 05/24/25 by Pedro Mohamud MD acetaminophen (Tylenol Extra Strength) 500 mg PO Q6H PRN albuterol sulfate 90 mcg/actuation 2 puffs inhalation Q6H PRN beclomethasone dipropionate 80 mcg/actuation (Qvar RediHaler) 2 inhalations inhalation BID blood sugar diagnostic (OneTouch Verio test strips) As directed test 4 times a day blood-glucose meter (OneTouch Verio Flex Meter) As directed checks 4 times a day blood-glucose,production machine operator,cont (FreeStyle Walter 3 [place]) As directed bolus insulin pump, 200 unit (CeQur Simplicity) As directed every 4 days calcium carbonate-vitamin D3 600 mg-10 mcg (400 unit) 1 tab PO Q12H cholecalciferol (vitamin D3) 125 mcg PO DAILY CPAP (CPAP Machine/Device) As directed escitalopram oxalate 20 mg PO DAILY FreeStyle Walter 3 Plus Sensor (blood-glucose sensor) As directed every 15 days NS gabapentin 100 mg PO BEDTIME insulin glargine (Lantus Solostar U-100 Insulin) 28 units (0.28 mL) subcut DAILY 30 days MDD 28 units insulin lispro (Humalog U-100 Insulin) 10 units tid before meals 30 days MDD 30 irbesartan 75 mg PO DAILY meclizine 25 mg PO DAILY PRN rosuvastatin 40 mg PO DAILY sennosides-docusate sodium 8.6-50 mg (Senna Plus) 1 tab PO BEDTIME tirzepatide (Mounjaro) 10 mg (0.5 mL) subcut QWEEK HPI Comments Details: Patient is 75-year-old female with DM type 2 diagnosed 1993 who presents for management of diabetes. Previous medication: Synjardy XR 25/1,000 not taking because can't tolerate nausea.Intolerant of regular metformin due to diarrhea Diabetes medications: Lantus 10 units Humalog 5 units Ac tid before meal Mounjaro 10 mg weekly Walter download shows the sensor was active 85% of the time. Average glucose is 123 with G mi of 6.3%. 88% in target with 12% hyperglycemia and no hypoglycemia No hypoglycemia Positive Retinopathy: Last diabetic eye exam in 02/2025 ; , she is getting anti-VGEF therapy Has neuropathy left leg secondary to surgery. No pain, Podiatry: Does not see but would like referral as she had has difficulty bending over to trim her nails Has nephropathy followed by Nephrology Dr. Olivares at [facility] microalbumin Hypoglycemia: denies Hyperglycemia: + urinary frequency, + nocturia, denies polydypsia Diet has not been balanced she has a history of sleeve in 2019 Exercise: has not been walking. Clinical Neuropsychologist - CDE education: Yes Seen by bariatric surgeon 05/24. Meal plan prescribed: [facility] Medical History Type 2 diabetes mellitus Panic attack Anxiety Obesity due to excess calories Asthma REY (obstructive sleep apnea) Morbid obesity Vitamin D deficiency Obesity Dyslipidemia Hypertension Diabetic polyneuropathy associated with type 2 diabetes mellitus Diabetes type 2, uncontrolled Surgical History Abdominal pain History of carpal tunnel release S/P trigger finger release H/O foot surgery History of dilatation and curettage History of sleeve gastrectomy History of esophagogastroduodenoscopy (EGD) History of eyelid surgery Hx of tubal ligation Hx of colonoscopy Family History Father Type II diabetes mellitus Obesity Mother HTN (hypertension) Brother Cancer Social History Household Members: Spouse Housing: Apartment Do you presently have visiting nurse or other home services: Yes Alcohol intake: never Patient Tobacco Use Status: Former Tobacco user Tobacco use type: Cigarette e-Cigarette/Vaping Use: Never Used service: No Current occupational status: unemployed Current occupation: rt handed Physical Exam Vital Signs: Last Vital Signs Pulse 79 05/24/25 14:16 BP 110/58 L 05/24/25 14:16 Pulse Ox 94 05/24/25 14:16 Oxygen Delivery Method Room Air 05/24/25 14:16 BMI result Body Mass Index 41.2 Absence of Cushingoid features. Absence of acromegalic features. Neck exam reveals nl size thyroid about 15 gms. No thyroid nodules palpable. No carotid bruits present. Lungs CTA. Heart S1 S2, Reg R/R. No M/R/ G. Skin exam reveals absence of vitiligo or acanthosis nigricans. Abdominal exam reveals Soft NT/ND with NA BS. No organomegaly present. Neck Other: . Extrem Other: Visual exam of foot performed. No ulcerations or open lesions. No onchomycosis, no callouses.Pulses 2 + distally Sensation intact to monofilament exam. Vibratory sensation sensed is Decreased with 128 Hz tuning fork Results AMB Hemoglobin A1c AMB Hemoglobin A1c 6.4 % Last Edit by RAYSHAWN Singh on 05/24/25 14:33 Results Reviewed Results Reviewed: Laboratory Last Values Glucose (Clinic) 119 mg/dL (60-115) H 05/24/25 14:21 Hgb A1c (Clinic) 6.4 % (4.0-6.0) H 05/24/25 14:25 Assessment & Plan Assessment & Plan (1) Diabetes type 2, uncontrolled: Code(s): E11.65 - Type 2 diabetes mellitus with hyperglycemia Category: Medical Qualifiers: Glycemic state: with hyperglycemia Qualified Code(s): E11.65 - Type 2 diabetes mellitus with hyperglycemia Plan: This is 75-year-old female with a history of type 2 diabetes being treated with Mounjaro and basal-bolus insulin with excellent improved glycemic control and known microvascular complications namely retinopathy, neuropathy and nephropathy. She claims to be intolerant to metformin or metformin /Jardiance combination The plan is to continue the current regimen. Patient will follow up with primary care diabetes team in about 3-4 months Orders: Orders AMB Hemoglobin A1c Today E11.9 - Type 2 diabetes mellitus without complications Coding Level of Care Code Est Pt Level 4 (18706) Diagnoses Uncontrolled type 2 diabetes mellitus with hyperglycemia E11.65 Glycemic state: with hyperglycemia
[2025-05-24 14:16] VITALS: BP 110/58; PULSE 79; O2SAT 94; BMI 41.2
[2025-05-24 14:26] LABS: Glucose, Whole Blood 119 mg/dL (60-115)
--- OUTSIDE RECORDS SUMMARY | 2025-05-24 16:10 | XMS_ITS | Encounter Summary ---
Author Organization [facility] Address [address] [place] [address] Phone Care Team Providers Care Babysitter Name Role Phone Paul Farr NP, Lalita Primary Care Provider Olga jacinto Reason for Referral * MRI/CAT Scan - Closed Specialty Diagnoses / Procedures Referred By Nan jara Referred To Contact Radiology Diagnoses Hypertension, unspecified type Procedures NC Myocardial Perfusion Stress Single NC Myocardial Perfusion Exercise Multiple System, Provider Not In, [facility] [address] [address] Referral ID Status Reason Start Date Expiration Date Visits Re quested Visits Authorized [id number] Closed 10/13/2018 12/11/2018 1 1 Encounter Details Date Type Department Care Team (Latest Contact Info) Description 11/26/2018 Ancillary Orders [facility] [address] [place] [address] 3rd Floor, [address] [place] [address] System, Provider Not In, [facility] [address] [address] Hypertension, unspecified type Social History Tobacco Use [...] in SPECT format, reconstructed tomographically and compared [id number] in short axis, horizontal long axis and [...] type documented in this encounter Care Teams Babysitter Relationship Specialty Start Date End Date Lalita Miller NP PCP - General 11/03/18 documented as of this encounter Additional Source Comments The information contained in this document represents components of the legal health record. It is not the complete legal health record.[facility]
--- OUTSIDE RECORDS SUMMARY | 2025-05-24 16:10 | XMS_ITS | Clinical Summary ---
Author Organization [facility] Address [address] [place] [address] [place] [address] Phone Care Team Providers Care Special Programs Director Name Role Phone Paul Farr NP, [...] [place] [address] [facility] MEDICARE REPLACEMENT [facility] MEDICARE REPLACEMENT [facility] MEDICARE [facility]PLACEMENT [facility] MEDICARE REPLACEMENT [facility] MEDICARE [facility]PLACEMENT [facility] MEDICARE REPLACEMENT [facility] MEDICARE REPLACEMENT [facility] MEDICARE REPLACEMENT Care Teams Special Programs Director Relationship Specialty Start Date End Date Lalita Miller NP PCP - General 11/03/18 Additional Source Comments The information contained in this document represents components of the legal health record. It is not the complete legal health record.[facility]
== END 2025-05-24 14:50 | disposition home or self-care (01) ==
LOC: HO.ENCR 13:43
PROVIDERS: PCP Internal Medicine; Visit Provider Internal Medicine Endocrinology, Diabetes & Metabolism
DX: E11.65 Type 2 diabetes mellitus with hyperglycemia (principal); E11.9 Type 2 diabetes mellitus without complications
CPT/HCPCS: 99214

== ENCOUNTER → 2025-05-24 13:43 | Outpatient (BNVA) | payer OTHER, SELFPAY | PROVIDERS: PCP Internal Medicine; Visit Provider Internal Medicine Endocrinology, Diabetes & Metabolism | DX: E11.65 Type 2 diabetes mellitus with hyperglycemia (principal); E11.319 Type 2 diabetes mellitus with unspecified diabetic retinopathy without macular edema; E11.40 Type 2 diabetes mellitus with diabetic neuropathy, unspecified; Z79.4 Long term (current) use of insulin | CPT/HCPCS: 82947; 83036; 99212 ==

== ENCOUNTER 2025-06-20 13:37 | Outpatient (AMB) | payer OTHER, SELFPAY ==
--- NOTE | 2025-06-20 13:52 | A.OFFVIS_ITS ---
Intake Intake Visit Reasons: 60 min [employer] Professional Required: Yes [employer] Professional Language: Crimper Assembler Name: [id number] Accompanied by: Self / Same As Patient Allergies seasonal Allergy (Intermediate, Uncoded 05/24/25 14:16) cough HPI Comprehensive Diabetes Asmnt Most Recent Diabetes Results: 2 Hemoglobin A1c 7.1 % 07/11/19 Microalb/Creat Ratio, (<30) 45.1 ug/mg cr H 10/20/23 Cholesterol, (<200) 126 mg/dL 11/09/24 HDL Cholesterol, (>40) 45 mg/dL 11/09/24 Triglycerides, (<150) 98 mg/dL 11/09/24 Creatinine, (0.5-1.4) 0.63 mg/dL 04/25/25 BUN, (9-16) 16 mg/dL 04/25/25 Sodium, (135-145) 140 mmol/L 04/25/25 Potassium, (3.3-5.1) 4.0 mmol/L 04/25/25 Chloride, (96-108) 108 mmol/L 04/25/25 Carbon Dioxide, (22-29) 25 mmol/L 04/25/25 Calcium, (8.4-10.2) 9.2 mg/dL 04/25/25 AST, (5-31) 26 U/L 04/25/25 ALT, (0-31) 22 U/L 04/25/25 Total Protein, (6.5-8.0) 7.1 g/dL 04/25/25 Albumin, (3.5-5.0) 3.9 g/dL 04/25/25 [facility] Medical History Type 2 diabetes mellitus Panic attack Anxiety Obesity due to excess calories Asthma REY (obstructive sleep apnea) Morbid obesity Vitamin D deficiency Obesity Dyslipidemia Hypertension Diabetic polyneuropathy associated with type 2 diabetes mellitus Diabetes type 2, uncontrolled Surgical History Abdominal pain History of carpal tunnel release S/P trigger finger release H/O foot surgery History of dilatation and curettage History of sleeve gastrectomy History of esophagogastroduodenoscopy (EGD) History of eyelid surgery Hx of tubal ligation Hx of colonoscopy Family History Father Type II diabetes mellitus Obesity Mother HTN (hypertension) Brother Cancer Social History Household Members: Spouse Housing: Apartment Do you presently have visiting nurse or other home services: Yes Alcohol intake: never Patient Tobacco Use Status: Former Tobacco user Tobacco use type: Cigarette e-Cigarette/Vaping Use: Never Used service: No Current occupational status: unemployed Current occupation: rt handed Assessment & Plan Assessment & Plan (1) Type 2 diabetes mellitus: Code(s): E11.9 - Type 2 diabetes mellitus without complications Plan: Personal Continuous Glucose Monitor: Patients CGM information reviewed, Pt uses Walter 3+ Patient is poor historian difficult to assess how and how much insulin she is taking. She continues not to take Lantus. But reported that when glucose level is high she does take Humalog 10 units. Reviewed with patient the importance of eating after taking Humalog in order to avoid hypoglycemia Reviewed with patient how to treat hypoglycemia: Hypoglycemia or blood glucose under 73 mg/dL use the rule of 15's: If you have your blood glucose meter test your blood glucose, if you do not have your meter still follow below instruction: Keep quick-sugar foods with you at all times.? Take 15 grams of fast acting carbohydrates. Examples are 4 ounces of fruit juice or regular soda pop, 8 ounces fat-free milk, 1 tablespoon of table sugar, honey or corn syrup, jam, one miniature box of raisins, 7-8 gumdrops or Life Savers candy, 4 glucose tablets, and glucose gel.? Retest blood glucose in 15 minutes, if blood glucose is still under 80 mg/dL ,repeat rule of 15's. If blood glucose is under 50, take 30 grams of fast acting carbohydrates If you are having hypoglycemia, or insulin reaction, more that a few times a week, call MD or financial advisor trainee F/U BG check Patient able to insert sensor independently at home without issue.? Portions of this note were created using voice recognition software, please excuse any words or phrases that may have been misinterpreted. Patient Instructions: Contacte a marialuisa enfermera o proveedor de educaci?n sobre diabetes si experimenta hipoglucemia m?s de 3 veces por semana. Seguimiento con un educador sobre diabetes en 5 meses. Coding Level of Care Code Est Pt Level 1 (93480) Diagnoses Type 2 diabetes mellitus E11.9
--- OUTSIDE RECORDS SUMMARY | 2025-06-20 17:51 | XMS_ITS | Encounter Summary ---
Author Organization [facility] Address [address] [place] [address] Phone Care Team Providers Care Picker / Packer Name Role Phone Paul Farr NP, Lalita Primary Care Provider Olga jacinto Reason for Referral * MRI/CAT Scan - Closed Specialty Diagnoses / Procedures Referred By Nan jara Referred To Contact Radiology Diagnoses Hypertension, unspecified type Procedures NC Myocardial Perfusion Stress Single NC Myocardial Perfusion Exercise Multiple System, Provider Not In, [facility] [address] [address] Referral ID Status Reason Start Date Expiration Date Visits Re quested Visits Authorized [id number] Closed 10/13/2018 12/11/2018 1 1 Encounter Details Date Type Department Care Team (Latest Contact Info) Description 11/26/2018 Ancillary Orders [facility] [address] [place] [address] [address] Floor, [address] [place] [address] System, Provider Not In, [facility] [address] [address] Hypertension, unspecified type Social History Tobacco Use [...] in SPECT format, reconstructed tomographically and compared [id number]-[id number] in short axis, horizontal long axis and [...] type documented in this encounter Care Teams Picker / Packer Relationship Specialty Start Date End Date Lalita Miller NP PCP - General 11/03/18 documented as of this encounter Additional Source Comments The information contained in this document represents components of the legal health record. It is not the complete legal health record.[facility]
--- OUTSIDE RECORDS SUMMARY | 2025-06-20 17:51 | XMS_ITS | Data Portability ---
Author Organization [employer] [facility] Address [address] [place] [phone] Care Team Providers Care Food And Beverage Assistant Manager Name Role Phone [facility] Referring Provider Unavailable Referring Provider Assessment Encounter Date Assessment Date Assessment LastModified by Organization Details LastModified Time 03/17/2022 03/17/2022 I have reviewed and agree with the Assessment and Plan as documented by the Public Works Director. I provided real -time medical direction via [...] go to the ER- report called to [place] [facility] Not available 03/18/2022 21:31:13 Plan of Treatment Reminders Order Date Submit Date Provider Last Modified By Organization Details Last Modified Time Details Appointments None recorded. Lab None recorded. Referral None recorded. Procedures None recorded. Surgeries None recorded. Imaging electrocard iogram 2021 022 [email or web address] 0 [facility], [address] [place] [address], [phone] 21:32:45 Medication Orders None recorded. Patient TargetsNo targets recorded. Patient InstructionsNo instructions recorded. Reason for Referral None Reported. Results Created Date Observation Date Name Description Value Unit Range Abnormal Flag Note LastModifiedBy Organization Detail LastModifiedTime 03/18/2003/18/2022 elect doug dupontgr am No observ ation record ed. [email or web address] [address], [phone] 03/18/2022 21:32:33 Result Notes None recorded. Medical [...] Pulse oximetry Respiratory rate Heart rate Systolic And Diastolic Provider Name and Address Organization Details Last Updated DateTime 2 966706. 2 g 157.48 cm 97.8 [degF] 97 % 97 % 16 /min 78 /min 166/93 mm[Hg] Not Available [facility] - production 18:47:13 Social History None recorded. Functional Status None recorded. Mental Status None recorded. Family History Nothing Reported. Medical History No medical history recorded. Gynecological HistoryNo gynecological history recorded. Obstetrics History GPAL:G 0 P 0 0 0 0 Past Encounters Encounter ID Performer Location Encounter Start Date Encounter Closed Date Diagnosis/Indication Diagnosis SNOMED-CT Code Diagnosis ICD10 Code Diagnosis IMO Codes Diagnosis Note [id number] Chelsea Hernandez MD Main - [facility] [address] [place] [phone] 03/17/2022 16:53:01 05/13/2022 21:10:03 Chest pain 49210992 R07.9 Health Concerns Section Related Observation LastModified by Organization Detai ls LastModified Time None Recorded Concern Status LastModified by Organization Details LastModified Time None Recorded Advance Directives Directive None Recorded Payers Insurance Date Sequence Insurance Name Policy Number Policy Wagner Covered Member ID Wagner Member ID Guarantor Name 03/17/2022 1 [facility] - DOS PRIOR TO 2022 - DUAL ELIGIBLE (MEDICARE REPLACEMENT/ADV ANTAGE - HMO) Halley Ramon [id number] Halley Ramon Notes Date Note Type Note Provider Name and Address Organization Details Recorded Time 03/17/2022 text/html ROS as noted in the HPI HPI: ALLERGIC TO: ESCITALOPRAM OXALATE Patient with [...] ................... ................... ................... ................... ................... ................... ........ Public Works Director Note: Sent to a call for a pt complaining of chest pain and sob. [facility] arrives on scene, pt arrives home in a van. Pt is alert and oriented. [employer] is patent. Energy Efficiency Finance Manager line used for communication as pt's primary language is Tuvaluan. Pt complains of left lateral neck pain [...] dizziness, n/v/d, abd pain, fever/chills or loc. [facility] orders 12 lead ECG. ECG uploaded to [employer]. [facility] advises pt to be transported to ED for further evaluation/treatmen t. Pt agrees. Pt care is transferred to [facility]. Pt transported to [facility]. ................... ................... ................... ................... ................... ................... ................... ........ Disposition: FulfilledSEGMD- as above-Pat seen at [facility] 03/06/22- was having neck pain and headache at the time-denied having CP or telling staff she had CP.- that started more recently. She finished the antibiotics- was also given albuterol, but she did not use it as it was making her nervous/ shakey//has minimal cough- clear phlegm. She reports she sees a working second hand, but does not know her cardiac dx. Has hx obesity/ DM/ HTN/REY / panic d/o per old record. Quit smoking > 35 yrs ago- pat reports no known family hx CAD. Chelsea Hernandez MD [address] [facility] [address], [place], [phone], B-[id number] - [employer] 03/18/2022 21:32:58 OBGyn Episode No OBEpisode recorded.
--- OUTSIDE RECORDS SUMMARY | 2025-06-20 17:51 | XMS_ITS | Clinical Summary ---
Author Organization [facility] Address [address] [place] [address] [place] [phone] Phone Care Team Providers Care Surgical Services Director Name Role Phone Paul Farr NP, [...] [place] [id number] [facility] MEDICARE REPLACEMENT [facility]PLAC[facility] REPLACEMENT [facility] [employer] [facility]PLACEMENT [facility] [employer] REPLACEMENT [facility] RE[employer]ACEMENT Care Teams Surgical Services Director Relationship Specialty Start Date End Date Lalita Miller NP PCP - General 11/03/18 Additional Source Comments The information contained in this document represents components of the legal health record. It is not the complete legal health record.[facility]
== END 2025-06-20 14:35 | disposition home or self-care (01) ==
LOC: HO.ENCR 13:37
PROVIDERS: PCP Internal Medicine; Visit Provider Registered Nurse Diabetes Educator
DX: E11.9 Type 2 diabetes mellitus without complications (principal)

== ENCOUNTER → 2025-06-20 13:37 | Outpatient (BNVA) | payer OTHER, SELFPAY | PROVIDERS: PCP Internal Medicine; Visit Provider Registered Nurse Diabetes Educator | DX: E11.9 Type 2 diabetes mellitus without complications (principal); Z79.4 Long term (current) use of insulin | CPT/HCPCS: 99211 ==